=== PATIENT | female | born 1960 | race Caucasian/White ===

== ENCOUNTER 2018-09-04 05:28 | Inpatient (IN) | payer BC, OTHER ==
[2018-09-04] VITALS (7 sets, daily range): BP systolic 94–122; BP diastolic 51–82
[~2018-09-04] VITALS: Ht 172.7 cm; Wt 71.9 kg
[~2018-09-04 05:28] MED LIST: ASP81TEC PO; ASPI-892 PO; ATOR80TA PO; ATOR80TA2 PO; CLPD75T PO; GFN600TCR PO; GLIM2TAB PO; GLMP2T PO; LISI-556 PO; METF-380 PO; METF500T4 PO; METO25TA PO; MTP25TSR PO; MULT-974 PO; NITR0.4T SL; OMEG1CAP51 PO; PANT20TA2 PO; RMP2.5C PO
[2018-09-04] MEDS ORDERED: GLMP2T PO (05:44)
[2018-09-04] MEDS ORDERED: METF-397 PO (05:44)
[2018-09-04 05:46] LABS: BASOPHILS # (AUTO) 0.1 10^3/uL (0.0-0.1); BASOPHILS % (AUTO) 1 % (0-10); EOSINOPHILS # (AUTO) 0.2 10^3/uL (0.0-0.3); EOSINOPHILS % (AUTO) 2 % (0-10); HEMATOCRIT 47 % (35-52); HEMOGLOBIN 16.4 G/DL (11.5-16.0); LYMPHOCYTES # (AUTO) 3.7 X 10^3 (1.0-4.0); LYMPHOCYTES % (AUTO) 33 % (12-44); MEAN CORPUSCULAR HEMOGLOBIN 30 PG (25-34); MEAN CORPUSCULAR HGB CONC 35 G/DL (32-36); MEAN CORPUSCULAR VOLUME 85 FL (80-99); MEAN PLATELET VOLUME 10.7 FL (7.4-10.4); MONOCYTES # (AUTO) 0.9 X 10^3 (0.0-1.0); MONOCYTES % (AUTO) 8 % (0-12); NEUTROPHILS # (AUTO) 6.4 X 10^3 (1.8-7.8); NEUTROPHILS % (AUTO) 57 % (42-75); PLATELET COUNT 264 10^3/uL (130-400); RED CELL DISTRIBUTION WIDTH 13.5 % (10.0-14.5); WHITE BLOOD COUNT 11.3 10^3/uL (4.3-11.0)
--- NOTE | 2018-09-04 05:51 | NUR ---
pt to ct with yoils rn.
[2018-09-04 06:01] LABS: FIBRIN DEGRADATION PRODUCTS 0.38 UG/ML (0.00-0.49); INR 0.9 (0.8-1.4); PROTHROMBIN TIME PATIENT 12.4 SEC (12.2-14.7)
[2018-09-04 06:05] LABS: ALANINE AMINOTRANSFERASE 12 U/L (0-55); ALBUMIN 4.1 GM/DL (3.2-4.5); ALKALINE PHOSPHATASE 99 U/L (40-136); BILIRUBIN,TOTAL 0.4 MG/DL (0.1-1.0); BUN/CREATININE RATIO 14; CALCIUM 9.5 MG/DL (8.5-10.1); CARBON DIOXIDE 20 MMOL/L (21-32); CHLORIDE 103 MMOL/L (98-107); CREATININE SERUM 0.83 MG/DL (0.60-1.30); GFR ESTIMATED > 60; GLUCOSE 364 MG/DL (70-105); POTASSIUM 5.6 MMOL/L (3.6-5.0); SODIUM 134 MMOL/L (135-145); TOTAL PROTEIN 7.1 GM/DL (6.4-8.2)
--- NOTE | 2018-09-04 06:37 | ED Neurological Problem ---
General Chief Complaint: Neuro-Stroke Like Symptoms Stated Complaint: WEAK HEAVINESS IN LFT ARM AND LFT LEG Nursing Triage Note: left sided heaviness since 0000 Nursing Sepsis Screen: No Definite Risk Source: patient Exam Limitations: no limitations (PARMJIT COLBERT MD) History of Present Illness Date Seen by Provider: Sep 04, 2018 Time Seen by Provider: 05:30 Initial Comments This 58-year-old woman presents to the emergency room with complaints of left- sided weakness and difficulty walking. Her last known well time was at approximately midnight when she noticed weakness in both the upper and lower extremity on the left. She noted difficulty grasping the steering wheel and walking. She went to bed and upon waking this morning around 05:00 she required assistance from her to get out of bed. She did ambulate into the emergency room on her own power with some stability provided by her . She has diabetes but does not use insulin. She denies having any prior neurologic deficits. Her primary care providers Dr. BALLESTEROS. (PARMJIT COLBERT MD) Allergies and Home Medications Allergies Coded Allergies: cefdinir (Verified Allergy, Mild, NAUSEA, 09/17/13) Cephalosporins (Verified Adverse Reaction, Unknown, 09/04/18) Home Medications Aspirin 81 Mg Tabec, 81 MG PO DAILY, (Reported) Glimepiride 2 Mg Tab, 2 MG PO BID, (Reported) Lisinopril 5 Mg Tablet, 5 MG PO HS, (Reported) Metformin HCl 500 Mg Tablet, 500 MG PO BID, (Reported) Patient Home Medication List Home Medication List Reviewed: Yes (PARMJIT COLBERT MD) Review of Systems Review of Systems Constitutional: no symptoms reported Eyes: No Symptoms Reported Ears, Nose, Mouth, Throat: no symptoms reported Respiratory: no symptoms reported Cardiovascular: no symptoms reported Gastrointestinal: no symptoms reported Genitourinary: no symptoms reported : No Musculoskeletal: no symptoms reported Skin: no symptoms reported Psychiatric/Neurological: See HPI Endocrine: No Symptoms Reported Hematologic/Lymphatic: No Symptoms Reported (PARMJIT COLBERT MD) Past Suiqwus-Saukco-Rqhejg Hx Patient Social History Alcohol Use: Occasionally Uses Recreational Drug Use: No Smoking Status: Current Everyday Smoker Type Used: Cigarettes 2nd Hand Smoke Exposure: Yes Recent Foreign Travel: No Contact w/Someone Who Travel: No Recent Infectious Disease Expo: No Recent Hopitalizations: No (PARMJIT COLBERT MD) Immunizations Up To Date Tetanus Booster (TDap): Less than 5yrs PED Vaccines UTD: No Date of Pneumonia Vaccine: Jan 02, 2007 Date of Influenza Vaccine: Nov 23, 2013 (PARMJIT COLBERT MD) Seasonal Allergies Seasonal Allergies: No (PARMJIT COLBERT MD) Past Medical History Surgeries: Yes (kidney and bladder surgery as a child) Appendectomy, Section, Coronary Stent, Gallbladder Respiratory: No Cardiac: Yes Coronary Artery Disease Neurological: No : No Reproductive Disorders: No Genitourinary: No Gastrointestinal: Yes Gastroesophageal Reflux Musculoskeletal: No Endocrine: Yes Diabetes, Non-Insulin dep HEENT: No Cancer: No Psychosocial: No Integumentary: No Blood Disorders: No Adverse Reaction/Blood Tranf: No (PARMJIT COLBERT MD) Family Medical History Reviewed Nursing Family Hx (PARMJIT COLBERT MD) Arthritis Cataracts Diabetes mellitus Hypercholesterolemia Hypertension No Family History of: AIDS Abdominal aortic aneurysm Gustavo's disease Alcoholism Alzheimer's disease Aphasia Asthma Cancer of mouth Cardiovascular disease Colon cancer Completed stroke Congenital disease Congenital heart disease Coronary thrombosis Cystic fibrosis Deafness or hearing loss Dementia Drug abuse Dysphasia Fibrocystic disease of breast Gastroenteritis Glaucoma Headache disorder Infertility Kidney disease Myocardial infarction Neoplasm Not obtainable due to adoption Osteoporosis Parkinson's disease Prostate cancer Psychosocial problem Respiratory disorder Seizure disorder Severe allergy Thyroid disease Tuberculosis Visual disorder Physical Exam Vital Signs Vital Signs - First Documented 09/04/18 05:30 Temp 96.0 Pulse 89 Resp 16 B/P (MAP) 140/91 (107) Pulse Ox 94 O2 Delivery Room Air (RHIANNA TOMAS MD) Vital Signs Capillary Refill : Less Than 3 Seconds (PARMJIT COLBERT MD) Height, Weight, BMI Height: 5'8.00" Weight: 170lbs. oz. 77.176791xz; 33.45 BMI Method:Stated General Appearance: WD/WN, no apparent distress HEENT: PERRL/EOMI, normal ENT inspection, pharynx normal Neck: normal inspection; No carotid bruit Respiratory: lungs clear, normal breath sounds, no respiratory distress, no accessory muscle use Cardiovascular: regular rate, rhythm, no edema, no murmur Gastrointestinal: normal bowel sounds, non tender, soft Extremities: normal inspection, no pedal edema Neurologic/Psychiatric: internal medicine nurse II-XII nml as tested, no motor/sensory deficits, alert, normal mood/affect, oriented x 3 Crainal Nerves: normal hearing, normal speech, PERRL Coordination/Gait: normal finger to nose, abnormal gait (disequilibrium) Motor/Sensory: no motor deficit, no sensory deficit Skin: normal color, warm/dry (PARMJIT COLBERT MD) Stroke NIH Stroke Scale Assessment Level of Consciousness: 0=Alert (0), Level of Consciousness-Questions: 0=Answers both month/age (0), LOC Commands: 0=Performs both tasks (0), Visual Lindsay: 0=No visual loss (0), Facial Movement (Facial Paresis): 0=Normal symmetrical mnt (0), Motor Function-Arms Right: 0=No drift (0), Motor Function-Arms Left: 0=No drift (0), Motor Function-Legs Right: 0=No drift (0), Motor Function-Legs Left: 0=No drift (0), Limb Ataxia: 0=Absent (0), Sensory: 0=Normal:no loss (0), Best Language: 0=No aphasia (0), Dysarthria: 0=Normal (0), Extinction & Inattention: 0=No abnormality (0), Total: 0 Progress/Results/Core Measures Results/Orders Lab Results Laboratory Tests Test 09/04/18 05:35 09/04/18 05:50 09/04/18 06:30 09/04/18 07:37 Range/Units White Blood Count 11.3 H 4.3-11.0 10^3/uL Red Blood Count 5.49 4.35-5.85 10^6/uL Hemoglobin 16.4 H 11.5-16.0 G/DL Hematocrit 47 35-52 % Mean Corpuscular Volume 85 80-99 FL Mean Corpuscular Hemoglobin 30 25-34 PG Mean Corpuscular Hemoglobin Concent 35 32-36 G/DL Red Cell Distribution Width 13.5 10.0-14.5 % Platelet Count 264 130-400 10^3/uL Mean Platelet Volume 10.7 H 7.4-10.4 FL Neutrophils (%) (Auto) 57 42-75 % Lymphocytes (%) (Auto) 33 12-44 % Monocytes (%) (Auto) 8 0-12 % Eosinophils (%) (Auto) 2 0-10 % Basophils (%) (Auto) 1 0-10 % Neutrophils # (Auto) 6.4 1.8-7.8 X 10^3 Lymphocytes # (Auto) 3.7 1.0-4.0 X 10^3 Monocytes # (Auto) 0.9 0.0-1.0 X 10^3 Eosinophils # (Auto) 0.2 0.0-0.3 10^3/uL Basophils # (Auto) 0.1 0.0-0.1 10^3/uL Prothrombin Time 12.4 12.2-14.7 SEC INR Comment 0.9 0.8-1.4 Activated Partial Thromboplast Time 30 24-35 SEC D-Dimer 0.38 0.00-0.49 UG/ML Sodium Level 134 L 135-145 MMOL/L Potassium Level 5.6 H 3.6-5.0 MMOL/L Chloride Level 103 98-107 MMOL/L Carbon Dioxide Level 20 L 21-32 MMOL/L Anion Gap 11 5-14 MMOL/L Blood Urea Nitrogen 12 7-18 MG/DL Creatinine 0.83 0.60-1.30 MG/DL Estimat Glomerular Filtration Rate > 60 BUN/Creatinine Ratio 14 Glucose Level 364 H 70-105 MG/DL Calcium Level 9.5 8.5-10.1 MG/DL Corrected Calcium 9.4 8.5-10.1 MG/DL Total Bilirubin 0.4 0.1-1.0 MG/DL Aspartate Amino Transf (AST/SGOT) 20 5-34 U/L Alanine Aminotransferase (ALT/SGPT) 12 0-55 U/L Alkaline Phosphatase 99 40-136 U/L Troponin I < 0.028 <0.028 NG/ML Total Protein 7.1 6.4-8.2 GM/DL Albumin 4.1 3.2-4.5 GM/DL Glucometer 119 H 319 H 70-110 MG/DL Urine Color YELLOW Urine Clarity CLEAR Urine pH 6.5 5-9 Urine Specific [place] 1.010 L 1.016-1.022 Urine Protein NEGATIVE NEGATIVE Urine Glucose (UA) 4+ H NEGATIVE Urine Ketones NEGATIVE NEGATIVE Urine Nitrite NEGATIVE NEGATIVE Urine Bilirubin NEGATIVE NEGATIVE Urine Urobilinogen NORMAL NORMAL MG/DL Urine Leukocyte Esterase NEGATIVE NEGATIVE Urine RBC (Auto) NEGATIVE NEGATIVE Urine RBC 0-2 /HPF Urine WBC NONE /HPF Urine Squamous Epithelial Cells 2-5 /HPF Urine Crystals NONE /LPF Urine Bacteria TRACE /HPF Urine Casts NONE /LPF Urine Mucus NEGATIVE /LPF Urine Culture Indicated NO (RHIANNA TOMAS MD) My Orders Orders - RHIANNA TOMAS MD Insulin (Regular) Human (Humulin R (Per (09/04/18 07:47) Aspirin Chewable Tablet (Baby Aspirin Ch (09/04/18 07:48) (RHIANNA TOMAS MD) Medications Given in ED Current Medications Medications Dose Ordered Sig/Pearl Route Start Time Stop Time Status Last Admin Dose Admin Iohexol 100 ml ONCE ONCE IV 09/04/18 06:45 09/04/18 06:46 DC 09/04/18 06:44 75 ML Sodium Chloride 100 ml ONCE ONCE IV 09/04/18 06:45 09/04/18 06:46 DC 09/04/18 06:44 80 ML (RHIANNA TOMAS MD) Vital Signs/I&O 09/04/18 05:30 Temp 96.0 Pulse 89 Resp 16 B/P (MAP) 140/91 (107) Pulse Ox 94 O2 Delivery Room Air (RHIANNA TOMAS MD) Blood Pressure Mean: 107 FSBG Bedside Testing Finger Stick Blood Glucose: 119 (PARMJIT COLBERT MD) Progress Progress Note : Time: 06:39 Progress Note The initial NIH stroke score was zero. Noncontrast CT was negative for acute findings. 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 Follow-up CT angiogram revealed no large vessel occlusions but did reveal an additional old infarct. Patient was not a TPA candidate as her NIH stroke score was zero and she was more than 4.5 hours past last known well time. Care of this patient was turned over to Dr. Tomas. (PARMJIT COLBERT MD) Progress Note : Progress Note 0700: I have assumed care of the patient from Dr. Pierce pending CT angiogram studies. I have reassessed the patient. Currently NIH stroke scale is 0. She has been able to walk to the bathroom and back without assistance. States overall she is feeling better. I did discuss the case with Dr. Santana at [facility], on-call for stroke neurology. We reviewed the case to this point. No indication for CTP. Recommends assay a 1 mg daily which will be initiated. 0750: UA complete. Does have 4+ glucose. Patient is on metformin and that does not seem to be managing her well at least currently. Given the fact that this is a new onset issue that seems to be TIA as well as hyperglycemia, patient will be admitted for observation. Insulin 10 units subcutaneous ordered. I did discuss the case with Dr. Duckworth and she accepts patient for admission, observation status. Aspirin. 24 mg by mouth given. We will get MRI tomorrow morning. Patient and family agree with plan. (RHIANNA TOMAS MD) Initial ECG Impression Date: Sep 04, 2018 Initial ECG Impression Time: 05:38 Initial ECG Rate: 82 Initial ECG Rhythm: Normal Sinus Initial ECG Intervals: Normal Initial ECG Impression: Normal Comment Normal sinus rhythm with no ST elevation or depression. No abnormal intervals or axis deviation. (PARMJIT COLBERT MD) Diagnostic Imaging Diagonstic Imaging: Xray Plain Films/CT/US/NM/MRI: chest Comments Chest x-ray viewed by me. Report not yet available. No acute abnormalities appreciated. Diagonstic Imaging: CT Plain Films/CT/US/NM/MRI: head Comments Noncontrast CT of the head viewed by me and stat rad report reviewed. There is a slight left frontal intra-axial 2 cm mass which may represent calcified meningioma. There is an old right occipital infarct. No intracranial hemorrhage. Diagonstic Imaging: CT Plain Films/CT/US/NM/MRI: other (angiogram head and neck) Comments CT angiogram of the head and neck discussed with the radiologist and report reviewed. There were no large vessel occlusions or intracranial stenosis. There were a left cerebellar and right occipital prior infarct noted. There is an enhancing calcified left frontal extra-axial mass consistent with meningioma. There were calcified plaques within the left ICA. Minimal intimal thickening within the right ICA without stenosis. (PARMJIT COLBERT MD) Departure Communication (Admissions) Time/Spoke to Admitting Phy: 07:50 (RHIANNA TOMAS MD) Impression Primary Impression: Transient ischemic attack (TIA) Additional Impression: Hyperglycemia due to type 2 diabetes mellitus Qualified Codes: E11.65 - Type 2 diabetes mellitus with hyperglycemia Disposition: ADMITTED INPATIENT Condition: Stable Admissions Decision to Admit Reason: Admit from ER (General) Decision to Admit/Date: Sep 04, 2018 Time/Decision to Admit Time: 07:50 (RHIANNA TOMAS MD) Departure-Patient Inst. Referrals: NO,LOCAL PHYSICIAN (PCP) Primary Care Physician BENEDICTO BALLESTEROS DO (Family) Primary Care Physician PARMJIT COLBERT MD Sep 04, 2018 06:36 RHIANNA TOMAS MD Sep 04, 2018 08:01
[2018-09-04 06:39] LABS: BILIRUBIN,URINE NEGATIVE (NEGATIVE); CLARITY,URINE CLEAR; COLOR,URINE YELLOW; GLUCOSE, URINE (UA) 4+ (NEGATIVE); KETONES,URINE NEGATIVE (NEGATIVE); LEUKOCYTE ESTERASE ,URINE NEGATIVE (NEGATIVE); NITRITE,URINE NEGATIVE (NEGATIVE); PH,URINE 6.5 (5-9); PROTEIN,URINE NEGATIVE (NEGATIVE); UROBILINOGEN,URINE NORMAL (NORMAL)
[2018-09-04] MEDS ORDERED: NS 100 ML (IVPB) BAG IV ONE (06:45)
[2018-09-04] MEDS ORDERED: IOHEXOL 350 MG/ML 100 ML (OMNIPAQUE 350) VIAL IV ONE (06:45)
[2018-09-04] MEDS ORDERED: HOLD METFORMIN - RECEIVED CONTRAST 20 ML VIAL IV SCH (06:45)
--- NOTE | 2018-09-04 06:50 | Diagnostic Imaging Report ---
Portable erect AP chest at 632 hours. INDICATION: Respiratory distress, CVA. There are no prior studies available for comparison. FINDINGS: The heart size is within normal limits. The lungs are clear. There is no evidence for failure, pneumonia or for pleural effusion. The mediastinum is not widened. The osseous structures are intact. IMPRESSION: There is no evidence of active disease. Dictated by: Dictated on workstation # [id number]
--- NOTE | 2018-09-04 07:01 | Diagnostic Imaging Report ---
PROCEDURE: CT head wo r/o stroke. TECHNIQUE: Multiple contiguous axial images were obtained through the brain without the use of intravenous contrast. Auto Exposure Controls were utilized during the CT exam to meet ALARA standards for radiation dose reduction. INDICATION: CVA, left-sided weakness There are no prior studies available for comparison. Along the periphery of the left temporal parietal lobe just superior to the level of the lateral ventricles there is a partially calcified 1.3 x 2.0 CM extra-axial mass. I suspect that this is a meningioma. There is no other mass identified. There is no sign of hemorrhage or shift of midline to suggest an acute abnormality. There is a small area of diminished density in the basal ganglia on the right. This may be related to encephalomalacia from a prior lacunar infarct. It would be less likely that this is related to an acute or subacute infarct. There are other areas of encephalomalacia in both cerebellar hemispheres the right parieto-occipital lobe and right parietal occipital lobe. There is also mild cortical atrophy. The degree of atrophy is consistent with the patient's age. The ventricles are not abnormally dilated. The bone windows show no sign of a fracture or of a destructive lesion. The orbits are symmetrical and within normal limits. The sinuses where visualized are clear. IMPRESSION: 1. There is no evidence for acute intracranial abnormality. The small area of diminished density in the basal ganglia on the right is of uncertain etiology, but more likely to be chronic in nature than due to an acute or subacute abnormality.. If further study is desired, then a CTA of the head would be recommended. 2. The partially calcified extra-axial mass along the periphery of the left frontoparietal lobe is most likely a meningioma. MRI would be recommended for further evaluation. 3. These results were conveyed to the ER by our [employer] service at 6:03 am on 09/04/2018. Dictated by: Dictated on workstation # [id number]
[2018-09-04 07:03] LABS: BACTERIA,URINE TRACE /HPF; RBC,URINE 0-2 /HPF
--- NOTE | 2018-09-04 07:11 | Diagnostic Imaging Report ---
PROCEDURE: CT angiography of the head and CT angiography of the neck with and without contrast. TECHNIQUE: Contiguous noncontrast images were obtained from the skull base through the vertex. After intravenous contrast administration, helical CT angiography of the neck was performed. Source data was reformatted into multiple MIP projections. Delayed post contrast acquisition was also obtained. Auto Exposure Controls were utilized during the CT exam to meet ALARA standards for radiation dose reduction. INDICATION: Left-sided weakness There are no prior CT head and neck examinations available for comparison. The CT head exam performed prior to the study failed to show any sign of an acute intracranial abnormality. There did appear to be a small lacunar infarct in the right basal ganglia, however, on this exam. There is no defect within the intracranial arterial circulation to suggest a thrombus. There is no sign of aneurysm of the [place] either. The suspected calcified meningioma along the periphery of the left frontoparietal lobes seen on the prior study is again evident. The images through the neck show that there is atherosclerotic plaque involving the left carotid system. There is also mild soft plaque formation involving the internal carotid artery on the right. There is no hemodynamically significant stenosis of either carotid system identified. The vertebral arteries are opacified and there is no sign of injury to either vertebral artery. The left vertebral artery is slightly dominant. There is no mass or adenopathy involving the neck. The thyroid gland is generally unremarkable. There are faint groundglass densities in both lung apices. These are nonspecific but may be related to chronic pulmonary disease. The bone windows show no evidence for a fracture or for a destructive lesion. There is fairly severe degenerative disc and bony disease at C6-7. The disc space is narrowed and there is sclerosis of the opposing endplates of C6 and C7. There is no evidence for a high-grade central stenosis at this level. However, there does appear to be a focal disc protrusion to the right at C4-5. This does produce spinal stenosis and may involve the origin of the exiting right nerve root. If further evaluation is desired, then MRI would be recommended. IMPRESSION: 1. There is no defect within the intracranial arterial circulation to suggest a thrombus. There is no sign of an aneurysm either. If clinical concern regarding an acute intracranial abnormality persists, then MRI would be recommended for further evaluation. 2. There is atherosclerotic disease involving the carotid systems but there is no evidence for hemodynamically significant stenosis. There is no sign of an injury to either vertebral artery. 3. There is a focal disc protrusion to the right at C4-5. This does produce spinal stenosis and may involve the exiting right nerve root. If further evaluation is desired, then MRI would be recommended. Dictated by: Dictated on workstation # [id number]
--- NOTE | 2018-09-04 07:29 | NUR ---
Pt states that heavyness in left arm appears to be better. Pt reports improvement in ability to ambulate when walking to restroom. Pt reports no current needs at this time.
[2018-09-04] MEDS ORDERED: inSUlin (REGULAR) HUMAN 1 UNIT/0.01 ML (CHARGE PER UNIT) SC STA (07:47)
[2018-09-04] MEDS ORDERED: ASPIRIN 81 MG CHEW (CHILDREN'S ASA) PO STA (07:48)
--- NOTE | 2018-09-04 08:35 | NUR ---
attempt to call report at this time, no answer. order desk clerk report will have 4th rn call ED when she is available.
--- NOTE | 2018-09-04 09:20 | NUR ---
REPORT RECEIVED FROM ALAN IN ED,
--- NOTE | 2018-09-04 09:25 | NUR ---
ANDRIY TREVINO admitted to room 422-1, with an admitting diagnosis of TIA AND HYPOGLYCEMIA, on 09/04/18 from ED via W/C, accompanied by STAFF AND FAMILY. ANDRIY TREVINO introduced to surroundings, call light, bed controls, phone, TV, temperature control, lights, meal times, smoking policy, visitor policy, side rail policy, bathrooms and showers. Patient Rights given to patient in the handbook. ANDRIY TREVINO verbalizes understanding that [facility] is not responsible for the loss or damage to any personal effects or valuables that are kept in the patients posession during their hospitalization. The following Patient Care Plans were discussed with the PATIENT: Discharge Planning,STROKE AND KNOWLEDGE. ANDRIY TREVINO verbalizes understanding of Interdisciplinary Patient Education.
[2018-09-04] MEDS ORDERED: CATHETER FLUSH 10 ML SYR IV PRN (09:30)
--- NOTE | 2018-09-04 09:30 | NUR ---
ALERT, ORIENTED TO ROOM, CALL LIGHT WITHIN REACH, SPEECH CLEAR, LEFT ARM AND LEFT LEG WEAKER THEN RIGHT, STATES LEFT SIDE OF FACE IS SLIGHT NUMB, C/O HEAVINESS FEELING ON LEFT SIDE. DENIES PAIN OR SOB.
[2018-09-04] MEDS: NS IV 1000 ML 1,000 ML IV SCH (09:51)
[2018-09-04] MEDS ORDERED: NICOTINE 21 MG (NICODERM) PATCH TD SCH (10:45)
--- NOTE | 2018-09-04 11:09 | History & Physical-Hospitalist ---
History of Present Illness HPI/Chief Complaint Pt is a 58yoCF with a PMH of HTN, CAD, and NIDDMII who presented to the ER due to left sided weakness. [place] and started to feel her left arm tingle. When she was driving home she couldn't keep her left arm on the wheel due to the heaviness. Her left leg then became involved and she was unable to walk up her stairs to get in her so her came and helped her. She then fell asleep on the cough and when she woke up she couldn't stand due to the weakness. This prompted her to seek evaluation in the ER. Stroke team was activated and she went emergently to CT where a noncontrast Ct head was negative for acute ICH. She then had a CTA head and neck which was negative as well. By that point her symptoms had nearly resolved except for some heaviness in her arm but her strength had improved and by my exam she had ambulated independently to the bathroom. Source: patient Exam Limitations: no limitations Date Seen 09/04/18 Time Seen by a Provider: 11:03 Attending Physician Angelika Duckworth MD PCP Luis Denis DO Referring Physician Date of Admission Sep 04, 2018 at 07:50 Home Medications & Allergies Home Medications Reviewed patient Home Medication Reconciliation performed by pharmacy medication reconciliations marine services technician and/or nursing. Patients Allergies have been reviewed. Allergies Allergies Coded Allergies cefdinir (Verified Adverse Reaction, Mild, NAUSEA, yeast infection, 09/04/18) Cephalosporins (Verified Adverse Reaction, Unknown, yeast infections, 09/04/18) Past Mmphcun-Icvjln-Gwawbs Hx Past Med/Social Hx: Reviewed Nursing Past Med/Soc Hx Patient Social History Marrital Status: Employed/Student: employed Alcohol Use: Occasionally Uses Recreational Drug Use: No Smoking Status: Current Everyday Smoker Cigaretts per day: 10 Type Used: Cigarettes 2nd Hand Smoke Exposure: Yes Physical Abuse Screen: No Sexual Abuse: No Recent Foreign Travel: No Contact w/other who traveled: No Recent Hopitalizations: No Recent Infectious Disease Expo: No Immunizations Up To Date Tetanus Booster (TDap): Less than 5yrs Pediatric: No Date of Pneumonia Vaccine: Jan 02, 2007 Date of Influenza Vaccine: Nov 23, 2013 Seasonal Allergies Seasonal Allergies: Yes Past Medical History Surgeries: Appendectomy, Section, Coronary Stent, Gallbladder Currently Using CPAP: No Currently Using BIPAP: No Cardiac: Coronary Artery Disease, Hypertension, Irregular Heartbeat : No Reproductive: No Sexually Transmitted Disease: No HIV/AIDS: No Female Reproductive Disorders: Denies Genitourinary: UTI-Chronic Gastrointestinal: Gastroesophageal Reflux, Gall Bladder Disease Endocrine: Diabetes, Non-Insulin dep Are Your Blood Sugars Over 250: No Loss of Vision: Denies Hearing Impairment: Denies History of Blood Disorders: No Adverse Reaction to Blood Solitario: No Family History Reviewed Nursing Family Hx Arthritis Cataracts Diabetes mellitus Hypercholesterolemia Hypertension No Family History of: AIDS Abdominal aortic aneurysm [place]'s disease Alcoholism Alzheimer's disease Aphasia Asthma Cancer of mouth Cardiovascular disease Colon cancer Completed stroke Congenital disease Congenital heart disease Coronary thrombosis Cystic fibrosis Deafness or hearing loss Dementia Drug abuse Dysphasia Fibrocystic disease of breast Gastroenteritis Glaucoma Headache disorder Infertility Kidney disease Myocardial infarction Neoplasm Not obtainable due to adoption Osteoporosis Parkinson's disease Prostate cancer Psychosocial problem Respiratory disorder Seizure disorder Severe allergy Thyroid disease Tuberculosis Visual disorder Review of Systems Constitutional: No chills, No fever EENTM: no symptoms reported Respiratory: No cough, No short of breath Cardiovascular: No chest pain, No edema; Hx of Intervention; No palpitations Gastrointestinal: No abdominal pain, No nausea, No vomiting Genitourinary: no symptoms reported Musculoskeletal: see HPI, muscle weakness Skin: no symptoms reported Psychiatric/Neurological: See HPI, Numbness, Weakness Physical Exam Physical Exam Vital Signs Vital Signs - First Documented 09/04/18 05:30 Temp 96.0 Pulse 89 Resp 16 B/P (MAP) 140/91 (107) Pulse Ox 94 O2 Delivery Room Air Capillary Refill : Less Than 3 Seconds Height, Weight, BMI Height: 5'8.00" Weight: 156lbs. 4.0oz. [id number]; 23.8 BMI Method:Stated General Appearance: No Apparent Distress, WD/WN HEENT: PERRL/EOMI, Moist Mucous Membranes; No Scleral Icterus (L), No Scleral Icterus (R) Neck: Normal Inspection, Supple; No Thyromegaly Respiratory: Lungs Clear, No Accessory Muscle Use, No Respiratory Distress Cardiovascular: Regular Rate, Rhythm, No Murmur, Normal Peripheral Pulses Gastrointestinal: Normal Bowel Sounds, Non Tender, Soft Extremity: Normal Capillary Refill, No Calf Tenderness, No Pedal Edema Neurologic/Psychiatric: Alert, Oriented x3, No Motor/Sensory Deficits, Normal Mood/Affect; No Aphasia, No Facial Droop Skin: Normal Color, Warm/Dry Results Results/Procedures Labs Laboratory Tests 09/04/18 05:35 Patient resulted labs reviewed. Imaging: Reviewed Imaging Report Assessment/Plan Admission Diagnosis TIA Admission Status: Observation Assessment and Plan Left Sided Weakness CT Head negative Likely TIA as now resolved PT/OT/ST tomorrow Will get MRI Lipids ordered for AM ASA given in ER Monitor on telemetry Encouraged smoking cessation NIDDMII a1c orderd SsI hold metformin as just received contrast HTN Monitor and treat if SBP >180 Diagnosis/Problems Diagnosis/Problems (1) Transient ischemic attack (TIA) Status: Acute (2) HTN (hypertension) Qualifiers: Hypertension type: essential hypertension Qualified Codes: I10 - Essential (primary) hypertension (3) CAD (coronary artery disease) Qualifiers: Coronary Disease-Associated Artery/Lesion type: [place] artery [place] vs. 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
[2018-09-04] MEDS ORDERED: MELATONIN 3 MG TABLET PO PRN (11:15)
[2018-09-04] MEDS ORDERED: MILK OF MAGNESIA 400 MG/5 ML 30 ML UDC PO PRN (11:15)
[2018-09-04] MEDS ORDERED: BENZONATATE 100 MG (TESSALON) CAPSULE PO PRN (11:15)
[2018-09-04] MEDS ORDERED: ONDANSETRON 4 MG/2 ML (SDV) Z0FRAN IV PRN (11:15)
[2018-09-04] MEDS ORDERED: NICOTINE 14 MG (NICODERM) PATCH TD NR (11:15)
[2018-09-04] MEDS ORDERED: ANTACID SUSP 30 ML UDC (MYLANTA) PO PRN (11:15)
[2018-09-04] MEDS ORDERED: NITROGLYCERIN 2% OINT 1 GM UNIT DOSE PACKET TOP PRN (11:15)
--- NOTE | 2018-09-04 11:30 | NUR ---
WALKED TO BATHROOM, WHEN RETURNING TO BED, PATIENT C/O FEELING HEAVINESS IN LEFT SIDE, EMOTIONAL, CRYING, DR CHRISTIANSON IN ROOM, BP 131/70. PULSE 88, O2 SAT 99 PERCENT,
--- NOTE | 2018-09-04 11:42 | NUR ---
DOWN TO CT, ACCOMPANIED BY TRAVELING SALES REPRESENTATIVE
--- NOTE | 2018-09-04 12:13 | Diagnostic Imaging Report ---
PROCEDURE: CT head wo r/o stroke. TECHNIQUE: Multiple contiguous axial images were obtained through the brain without the use of intravenous contrast. Auto Exposure Controls were utilized during the CT exam to meet ALARA standards for radiation dose reduction. INDICATION: Onset of left-sided weakness approximately 15 minutes ago. Followup assessment. CORRELATION STUDY: CT head 09/04/2018 FINDINGS: Small linear area of asymmetric low attenuation of the right occipital lobe appears unchanged and may reflect a previous area of infarct. An additional linear to wedge-shaped area of low-attenuation at the posterior lateral left occipital lobe also appears stable. A definitive new area of decreased attenuation suggesting edema is not demonstrated. No intracranial hemorrhage. No midline shift. Heterogeneous but densely calcified, 20 x 17 mm mass at the left frontal region unchanged may reflect a calcified meningioma. Some mass effect on the adjacent brain parenchyma without definitive edema. No findings to suggest hyperdense MCA. IMPRESSION: 1. Generally stable appearing noncontrast CT imaging of the head. No definitive interval change or findings to suggest acute abnormality. Given continued symptoms, consideration for followup MRI would be recommended. Dictated by: Dictated on workstation # [id number]
[2018-09-04] MEDS: inSUlin ASPART (NovoLOG) 1 UNIT/0.01 ML (CHARGE PER UNIT) SC SCH ×3 (12:45→21:18)
--- NOTE | 2018-09-04 13:08 | NUR ---
NICOTINE PATCH CHANGED TO 14MG ORDERED
--- NOTE | 2018-09-04 13:19 | NUR ---
DR GARRISON NOTIFIED OF CONSULT
--- NOTE | 2018-09-04 15:14 | NUR ---
INCREASED WEAKNESS IN LEFT ARM AND HAND, UNABLE TO RAISE HAND TO FACE, HAND CHICKEN STUFFER WEAKER, SPEECH CLEAR, DR CHRISTIANSON NOTIFIED
--- NOTE | 2018-09-04 17:30 | NUR ---
PC TECHNICIAN NOTIFIED NURSE THAT DR CHRISTIANSON WANTED PATIENT TRANSFERRED TO ICU FOR MONITORING
--- NOTE | 2018-09-04 17:55 | NUR ---
PT TRANSFERRED TO ROOM ICU 10 VIA BED ACCOMPANIED BY DMITRI ALMONTE. PT TRANSFERRED TO ICU BED AND CONNECTED TO BEDSIDE MONITOR. PT INTRODUCED TO SURROUNDINGS AND INFORMED OF PLAN OF CARE. BEDSIDE REPORT RECEIVED FROM DMITRI ALMONTE FOR CONTINUING CARE.
--- NOTE | 2018-09-04 20:56 | NUR ---
ASSISTED TO BSC WITH ASSIST TIMES TWO , LEFT ARM AND LEFT LEG WEAK AND PT UNABLE TO STAND WITHOUT ASSIST
[2018-09-05] VITALS (15 sets, daily range): BP systolic 87–125; BP diastolic 49–85
[2018-09-05 03:15] LABS: BASOPHILS # (AUTO) 0.1 10^3/uL (0.0-0.1); BASOPHILS % (AUTO) 1 % (0-10); EOSINOPHILS # (AUTO) 0.2 10^3/uL (0.0-0.3); EOSINOPHILS % (AUTO) 2 % (0-10); HEMATOCRIT 44 % (35-52); HEMOGLOBIN 14.8 G/DL (11.5-16.0); LYMPHOCYTES # (AUTO) 2.9 X 10^3 (1.0-4.0); LYMPHOCYTES % (AUTO) 40 % (12-44); MEAN CORPUSCULAR HEMOGLOBIN 29 PG (25-34); MEAN CORPUSCULAR HGB CONC 34 G/DL (32-36); MEAN CORPUSCULAR VOLUME 87 FL (80-99); MEAN PLATELET VOLUME 10.8 FL (7.4-10.4); MONOCYTES # (AUTO) 0.6 X 10^3 (0.0-1.0); MONOCYTES % (AUTO) 8 % (0-12); NEUTROPHILS # (AUTO) 3.6 X 10^3 (1.8-7.8); NEUTROPHILS % (AUTO) 50 % (42-75); PLATELET COUNT 238 10^3/uL (130-400); RED CELL DISTRIBUTION WIDTH 13.5 % (10.0-14.5); WHITE BLOOD COUNT 7.3 10^3/uL (4.3-11.0)
[2018-09-05 03:37] LABS: BUN/CREATININE RATIO 17; CALCIUM 8.9 MG/DL (8.5-10.1); CARBON DIOXIDE 22 MMOL/L (21-32); CHLORIDE 106 MMOL/L (98-107); CHOLESTEROL 151 MG/DL (< 200); CREATININE SERUM 0.76 MG/DL (0.60-1.30); GFR ESTIMATED > 60; GLUCOSE 281 MG/DL (70-105); HDL CHOLESTEROL 45 MG/DL (40-60); MAGNESIUM 1.7 MG/DL (1.8-2.4); PHOSPHORUS 3.9 MG/DL (2.3-4.7); POTASSIUM 3.8 MMOL/L (3.6-5.0); SODIUM 139 MMOL/L (135-145); TRIGLYCERIDES 104 MG/DL (<150); VLDL CHOLESTEROL 21 MG/DL (5-40)
[2018-09-05] MEDS: MAGNESIUM 1 GM/100 ML IVPB 100 ML IV SCH ×2 (05:03→05:48)
[2018-09-05] MEDS: NS IV 1000 ML 1,000 ML IV SCH (05:04)
[2018-09-05] MEDS ORDERED: KCL 20 MEQ TAB (K-DUR) PO SCH (06:00)
[2018-09-05] MEDS: inSUlin ASPART (NovoLOG) 1 UNIT/0.01 ML (CHARGE PER UNIT) SC SCH ×4 (06:00→22:03)
[2018-09-05] MEDS ORDERED: MAGNESIUM 1 GM/100 ML IVPB 100 ML IV SCH (06:00)
[2018-09-05] MEDS ORDERED: POTASSIUM CL 10MEQ/50ML IVPB 50 ML IV SCH (06:00)
--- NOTE | 2018-09-05 08:19 | Diagnostic Imaging Report ---
Indication: TIA and hyperglycemia. Comparison made with prior examination of 09/04/2018. Findings: The heart size is normal. Lungs are clear. No pleural effusion or pneumothorax. Mediastinum unremarkable. Impression: No acute cardiopulmonary abnormality. Dictated by: Dictated on workstation # [id number]
[2018-09-05] MEDS: NICOTINE PATCH REMOVAL TP SCH (08:21)
[2018-09-05] MEDS: NICOTINE 14 MG (NICODERM) PATCH TD SCH (08:21)
[2018-09-05] MEDS: ACETAMINOPHEN 325 MG TABLET PO PRN ×2 (08:22→22:04)
[2018-09-05] MEDS ORDERED: NICOTINE PATCH REMOVAL TP SCH (08:59)
[2018-09-05] MEDS ORDERED: ASPIRIN 81 MG CHEW (CHILDREN'S ASA) PO SCH (09:00)
--- NOTE | 2018-09-05 10:51 | Physical Therapy Evaluation ---
PT Evaluation-General Medical Diagnosis Admission Date Sep 04, 2018 at 15:44 Medical Diagnosis: TIA and hypoglycemia Onset Date: Sep 03, 2018 Therapy Diagnosis Therapy Diagnosis: impaired mobility, strength, endurance, balance Height/Weight Height (Feet): 5 Height (Inches): 8.00 Weight (Pounds): 158 Weight (Ounces): 8.0 Precautions Precautions/Isolations: Fall Prevention, Standard Precautions Weight Bear Status Right Lower Extremity: Right Weight Bearing/Tolerated Left Lower Extremity: Left Weight Bearing/Tolerated Referral Physician: Fabienne Duckworth MD Reason for Referral: Evaluation/Treatment Medical History Additional Medical History Past Medical History Surgeries: Yes (kidney and bladder surgery as a child) Appendectomy, Section, Coronary Stent, Gallbladder Respiratory: No Cardiac: Yes Coronary Artery Disease Neurological: No : No Reproductive Disorders: No Genitourinary: No Gastrointestinal: Yes Gastroesophageal Reflux Musculoskeletal: No Endocrine: Yes Diabetes, Non-Insulin dep HEENT: No Cancer: No Psychosocial: No Integumentary: No Blood Disorders: No Reviewed History: Yes Social History Home: Single Level Current Living Status: Spouse Entry Into Home: Stairs Without Railing PT Steps Into Home: 4 Prior/Core FIM Prior Level of Function Therapy Code Descriptions/Definitions Functional Tinnie Measure: 0=Not Assessed/NA 4=Minimal Assistance 1=Total Assistance 5=Supervision or Setup 2=Maximal Assistance 6=Modified Tinnie 3=Moderate Assistance 7=Complete Tinnie Therapy Quality Codes: 6 Independent with activity with or without an assistive device 5 Patient requires set up or clean up by helper. Patient completes activity by themselves 4 Supervision or touching assist (CGA). [place] provide cues , steadying assist 3 The helper provides less than half the effort to complete the activity 2 The helper provides more than half the effort to complete the activity 1 Dependent. The helper does all the effort to complete an activity 7 Patient refused to complete or attempt activity 9 The patient did not perform the activity before the current illness or injury 88 Not attempted due to Medical conditions or safety concerns Functional Abilities and Goals: Independent: Patient completed the activities by him/herself, with or without an assistive device, with no assistance from a helper. Needed Some Help: Patient needed partial assistance from another person to complete activities. Dependent: A helper completed the activities for the patient. Unknown: Not Applicable: Bed Mobility: 7 Transfers (B,C,W/C) (FIM): 7 Gait: 7 Stairs: 7 Indoor Mobility (Ambulation): Independent Stairs: Independent PT Evaluation-Current Subjective Patient sitting EOB pre tx, agrees to PT, has no complaints of pain. Pt/Family Goals "to improve strength in left side" Objective Patient Orientation: Person, Place, Situation Attachments: IV ROM/Strength ROM Lower Extremities WNL Strength Lower Extremities RLE grossly 5/5, LLE (hip flexion 3+/5, knee flexion 3+/5, knee extension 4-/5, dorsiflexion 3+/5) Neuromuscular (Tone, Coordination, Reflexes) intact peripheral vision and good tracking, slight facial droop Sensory Vision: Functional Hearing: Functional Sensation Right Lower Extremit: Intact Sensation Left Lower Extremity: Intact Transfers Therapy Code Descriptions/Definitions Functional Tinnie Measure: 0=Not Assessed/NA 4=Minimal Assistance 1=Total Assistance 5=Supervision or Setup 2=Maximal Assistance 6=Modified Tinnie 3=Moderate Assistance 7=Complete Tinnie Sit to/from Stand: 4 bed t/f WC(FIM only if WC use): 4 Patient's left hand cannot compensation intern a walker so stood with therapist in front and once standing patient gripped therapist arm with right hand and slowly ambulated a few feet to recliner. Gait Mode of Locomotion: Walk Anticipated Mode of Locomotion: Walk Gait (FIM): 1 Distance: 5' Gait Level of Assist: 4 Gait Persons Needed: 1 Gait Assistive Device: Handheld Assist Comments/Gait Description Slow ambulation, some slight buckling of left knee but not totally, she is able to bear weight on left leg, uncoordinated stepping. Balance Sitting Static: Normal Sitting Dynamic: Fair Standing Static: Fair Standing Dynamic: Poor Treatment BLE seated exercises x15 (AP, LAQ) Assessment/Needs Patient has impaired mobility, strength, endurance, balance. She has left hemiparesis and impaired standing balance. Patient in recliner post tx with nurse call, phone, jerryy, instructed to call nursing if she needs to get back to the bed. Rehab Potential: Fair PT Short Term Goals Short Term Goals Time Frame: Sep 12, 2018 Transfers (B,C,W/C) (FIM): 4 (CGA) Gait (FIM): 1 Gait Distance Comment: 20' Gait Level of Assist: 4 Gait Assistive Device: Cane Large Base Quad, Cane Single Point, Walker Jaydon PT Plan Problem List Problem List: Activity Tolerance, Functional Strength, Safety, Balance, Gait, Transfer, Bed Mobility, ROM Treatment/Plan Treatment Plan: Continue Plan of Care Treatment Plan: Bed Mobility, Education, Functional Activity Marco Antonio, Functional Strength, Gait, Safety, Therapeutic Exercise, Transfers Treatment Duration: Sep 12, 2018 Frequency: 6 times per week Estimated Hrs Per Day: .25 hour per day Patient and/or Family Agrees t: Yes Safety Risks/Education Patient Education: Gait Training, Transfer Techniques, Correct Positioning, Safety Issues Teaching Recipient: Patient Teaching Methods: Demonstration, Discussion Response to Teaching: Reinforcement Needed Discharge Recommendations Plan Patient will perform bed mobility and transfer training, balance and endurance training, functional strengthening, stair training, gait training, and education, to improve functional mobility and independence at home. Therapy D/C Recommendations: Home w/ Family Support Time/GCodes Time In: 1021 Time Out: 1040 Total Billed Treatment Time: 19 Total Billed Treatment 1 visit DEVORAH Gay' DAGMAR GENTILE PT Sep 05, 2018 10:51
--- NOTE | 2018-09-05 11:15 | NUR ---
Pastoral care visit.
[2018-09-05] MEDS ORDERED: DIPH25CA79 PO (11:20)
[2018-09-05] MEDS ORDERED: IBUP-30 PO (11:20)
[2018-09-05] MEDS ORDERED: METF-399 PO (11:20)
[2018-09-05] MEDS ORDERED: MULT1TAB69 PO (11:20)
[2018-09-05] MEDS ORDERED: ASPI-983 PO (11:20)
--- NOTE | 2018-09-05 11:20 | NUR ---
fsbs 408, dr vogel notified. new orders received to give max dose ssi. additional orders received to change pt to csd status.
--- NOTE | 2018-09-05 11:21 | NUR ---
SPOKE WITH THE PATIENT ABOUT HER MEDICATIONS. SHE LISTED WHAT SHE IS TAKING AND SEEMED CONFIDENT IN THE DOSES HOWEVER WHEN I SAID I WOULD CALL [facility] TO DOUBLE CHECK SHE ADMITTED SHE DOES NOT TAKE THEM DAILY PRESCRIBED. [facility] HAS NOT FILLED HER MEDS IN QUITE SOME TIME ASIDE FROM ANTIBIOTICS RECENTLY FROM THE ED. [facility] FILLED: 10-28-16 GLIMEPIRIDE 4MG BID #60 10-28-16 METFORMIN 1000MG BID #60 01-21-11 LISINOPRIL - CANCELED; NOT FILLED I CALLED [facility] (WHO PRESCRIBED THE ABOVE MEDS) THEY HAVE NOT SEEN HER OR HAVE RECORD OF REFILLS SINCE THOSE ABOVE DATES. THEY MENTIONED SHE WAS SEEN BY THE EXCHANGE CONSULTANT IN [place] THIS YEAR FOR A SORE THROAT BUT ROUTINE MEDS WERE NOT ADDRESSED. I DID NOT INCLUDE THESE MEDICATIONS ON THE MED REC THEY ARE SIGNIFICANTLY PAST DUE. SHE REPORTED TAKING THE FOLLOWING OTC HOWEVER IT IS UNCLEAR WITH HER FILL HISTORY OF PRESCRIPTION MEDICATIONS HOW OFTEN SHE TAKES THESE OTC MEDS, I DID INCLUDE THEM ON THE MED REC. ASPIRIN 81MG DAILY MTV DAILY BENADRYL PRN SLEEPING IBU 2 PRN
--- NOTE | 2018-09-05 13:09 | Diagnostic Imaging Report ---
PROCEDURE: MR imaging of the brain without contrast. TECHNIQUE: Multiplanar, multisequence MR imaging of the brain was performed without contrast. INDICATION: Left-sided weakness. COMPARISON: CT head on 09/04/2018. FINDINGS: Small focus of acute ischemia is visualized involving the right basal ganglia. No evidence of hemorrhagic conversion or mass effect. Encephalomalacia is seen in the right occipital lobe and left cerebellum. Chronic microvascular disease is scattered in the periventricular and subcortical white matter. No acute hemorrhage. The ventricles, cortical sulci, and basilar cisterns are symmetric and unremarkable. The sellar and suprasellar regions have a normal appearance. Calcified meningioma involving the left convexity is again seen overlying the left frontal lobe measuring 1.9 x 1.7 cm with associated calvarial hyperostosis. The brainstem and posterior fossa are unremarkable. Small amount of retained secretions are seen in the right maxillary sinus. Otherwise, the paranasal sinuses and mastoid air cells demonstrate normal signal characteristics. The globes and orbits are symmetric and unremarkable. The scalp and calvarium have a normal appearance. IMPRESSION: 1. Small focus of acute ischemia involving the right basal ganglia. No hemorrhagic conversion or mass effect. 2. 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 3. Chronic microvascular disease. 4. Calcified meningioma overlying the left convexity. No associated parenchymal edema. Findings were discussed with Fabienne Duckworth at 01:00 p.m. on 09/05/[address] Luis Carlos Auguste. Dictated by: Dictated on workstation # [id number]
--- NOTE | 2018-09-05 14:53 | ST Cognitive Linguistic Eval ---
Speech Evaluation-General Medical Diagnosis TIA and hypoglycemia Onset Date: Sep 03, 2018 Therapy Diagnosis Therapy Diagnosis: Cognitive-communication Precautions Precautions/Isolations: Fall Prevention, Standard Precautions Medical History Reviewed History: Yes Social History Current Living Status: Spouse Speech PLF-Current Status Prior Level of Function The patient lived at home with her spouse where she was independent for all of her daily needs. Subjective The patient was pleasant and cooperative with the cognitive evaluation. Language Eval: Auditory Comprehends Simple Yes/No Ques: Functional Indent/Objects Multiple Lindsay: Functional Ident/Pics in Multiple Lindsay: Functional Follows 1-Step Commands: Functional Follows Complex Directions: Functional Follows General Conversations: Functional Language Eval: Verbal Language Completes Spontaneous Greeting: Functional Produces Auto, Serial Info: Functional Imitates Simple Words/Phrases: Functional Word Finding: Functional Requests Basic Needs: Functional States Basic Personal Info: Functional Expresses Complex Ideas: Functional Objective Cognitive Domain Attention: WNL Memory: WNL Problem Solving: Functional Executive Functions: WNL Visuospatial Skills: WNL Composite Severity Rating: WNL Objective Formal/Standardized Tests [facility] Mental Status ([facility]) Results Patient scored a 28/30 which falls within the normal range. Oral Motor/Speech Production Patient has slight left sided droop, however her speech in intelligible. Impression The patient is a pleasant 58 year old female who was admitted to the hospital via ED due to TIA and hypoglycemia. The patient was evaluated while she was sitting up in her chair. Oral motor function for oral intake is within functional limits even with slight left sided droop. Speech production is intelligible. The patient completed the SLUMS with a score of 28/30 which falls in the normal range. At this time the patient will not receive skilled ST services. Clinician will follow up with the patient periodically for her oral motor function. This information was provided to her nurse. Speech-Plan Patient/Family Goals Patient/Family Goals: The patient plans on returning home with her upon hospital discharge. Treatment Plan Speech Therapy Treatment Plan: Discontinue ST The patient does not require skilled ST at this time. It is expected the left sided facial droop will continue to resolve on it's on. ST will follow up tomorrow to determine if further services are needed. Treatment Duration: Sep 05, 2018 Frequency: 1 time per week Estimated Hrs Per Day: .25 hour per day Rehab Potential: Fair Barriers to Learning: New onset CVA Pt/Family Agrees to Plan: Yes Safety Risks/Education Teaching Recipient: Patient, Family Teaching Methods: Discussion Response to Teaching: Verbalize Understanding Education Topics Provided: Safety within her room and with oral intake. Time Speech Therapy Time In: 14:30 Speech Therapy Time Out: 14:45 Total Billed Time: 15 Billed Treatment Time 1, ANATOLIY Romero Sep 05, 2018 14:53
--- NOTE | 2018-09-05 15:45 | Pulmonary Consultation ---
History of Present Illness History of Present Illness Date of Consultation 09/05/18 15:43 Date of Admission Allergies and Home Medications Allergies Coded Allergies: cefdinir (Verified Adverse Reaction, Mild, NAUSEA, yeast infection, 09/04/18) Cephalosporins (Verified Adverse Reaction, Unknown, yeast infections, 09/04/18) Home Medications Aspirin 81 Mg Tablet.dr, 81 MG PO DAILY, (Reported) Diphenhydramine HCl 25 Mg Capsule, 25 MG PO HS PRN for SLEEP, (Reported) Ibuprofen 200 Mg Tablet, 400 MG PO Q8H PRN for PAIN-MILD, (Reported) Multivitamin 1 Each Tablet, 1 TAB PO DAILY, (Reported) Past Ewmqgaa-Gbacbt-Onbtxb Hx Past Med/Social Hx: Reviewed Nursing Past Med/Soc Hx Patient Social History Alcohol Use: Occasionally Uses Recreational Drug Use: No Smoking Status: Current Everyday Smoker Type Used: Cigarettes 2nd Hand Smoke Exposure: Yes Recent Foreign Travel: No Contact w/Someone Who Travel: No Recent Infectious Disease Expo: No Recent Hopitalizations: No Physical Abuse: No Sexual Abuse: No Mistreated: No Fear: No Immunizations Up To Date Tetanus Booster (TDap): Less than 5yrs PED Vaccines UTD: No Date of Pneumonia Vaccine: Jan 02, 2007 Date of Influenza Vaccine: Nov 23, 2013 Seasonal Allergies Seasonal Allergies: Yes Past Medical History Surgeries: Yes (kidney and bladder surgery as a child) Appendectomy, Section, Coronary Stent, Gallbladder Respiratory: No Currently Using CPAP: No Currently Using BIPAP: No Cardiac: Yes Coronary Artery Disease, Hypertension, Irregular Heartbeat Neurological: Yes : No Reproductive Disorders: No Female Reproductive Disorders: Denies Sexually Transmitted Disease: No HIV/AIDS: No Genitourinary: Yes UTI-Chronic Gastrointestinal: Yes Gastroesophageal Reflux, Gall Bladder Disease Musculoskeletal: No Endocrine: Yes Diabetes, Non-Insulin dep Are Your Blood Sugars Over 250: No HEENT: No Loss of Vision: Denies Hearing Impairment: Denies Cancer: No Psychosocial: No Integumentary: No Blood Disorders: No Adverse Reaction/Blood Tranf: No Family Medical History Reviewed Nursing Family Hx Arthritis Cataracts Diabetes mellitus Hypercholesterolemia Hypertension No Family History of: AIDS Abdominal aortic aneurysm Deuel's disease Alcoholism Alzheimer's disease Aphasia Asthma Cancer of mouth Cardiovascular disease Colon cancer Completed stroke Congenital disease Congenital heart disease Coronary thrombosis Cystic fibrosis Deafness or hearing loss Dementia Drug abuse Dysphasia Fibrocystic disease of breast Gastroenteritis Glaucoma Headache disorder Infertility Kidney disease Myocardial infarction Neoplasm Not obtainable due to adoption Osteoporosis Parkinson's disease Prostate cancer Psychosocial problem Respiratory disorder Seizure disorder Severe allergy Thyroid disease Tuberculosis Visual disorder Sepsis Event Evaluation Height, Weight, BMI Height: 5'8.00" Weight: 158lbs. 8.0oz. 71.024761uu; 23.8 BMI Method:Stated Exam Exam Vital Signs Date Time Temp Pulse Resp B/P (MAP) Pulse Ox O2 Delivery O2 Flow Rate FiO2 09/05/18 15:02 Room Air 09/05/18 12:42 72 09/05/18 12:30 87 18 102/70 (81) 95 Room Air 09/05/18 12:00 97.4 09/05/18 11:32 Room Air 09/05/18 10:00 82 19 114/52 (72) 98 Room Air 09/05/18 09:00 82 13 98/70 (79) 96 Room Air 09/05/18 08:00 97.1 09/05/18 08:00 80 20 96/66 (76) 97 Room Air 09/05/18 08:00 Room Air 09/05/18 07:00 78 09/05/18 07:00 72 18 125/76 (92) 94 Room Air 09/05/18 06:00 67 19 111/63 (79) 91 Room Air 09/05/18 05:00 94 18 94/85 (88) 96 Room Air 09/05/18 04:00 77 20 99/63 (75) 92 Room Air 09/05/18 04:00 96 Room Air 09/05/18 03:00 82 21 106/64 (78) 91 Room Air 09/05/18 02:00 75 21 92/49 (63) 93 Room Air 09/05/18 01:00 78 09/05/18 01:00 73 21 102/58 (73) 93 Room Air 09/05/18 00:11 80 19 87/63 (71) 94 Room Air 09/05/18 00:00 96 Room Air 09/05/18 00:00 96.9 09/04/18 23:00 81 13 94/82 (86) 94 Room Air 09/04/18 22:00 81 33 113/51 (71) 96 Room Air 09/04/18 21:40 76 17 122/76 (91) 97 Room Air 09/04/18 20:00 76 17 113/78 (90) 94 Room Air 09/04/18 20:00 96 Room Air 09/04/18 20:00 97.1 09/04/18 19:57 70 09/04/18 19:00 76 15 114/72 (86) 97 Room Air 09/04/18 16:02 97.6 76 18 106/63 (77) 96 Room Air I & O 09/05/18 07:00 Intake Total 850 ml Balance 850 ml Height & Weight Height: 5'8.00" Weight: 158lbs. 8.0oz. [id number]; 23.8 BMI Method:Stated General Appearance: No Apparent Distress, WD/WN HEENT: PERRL/EOMI, Moist Mucous Membranes; No Scleral Icterus (L), No Scleral Icterus (R) Neck: Normal Inspection, Supple; No Thyromegaly Respiratory: Lungs Clear, No Accessory Muscle Use, No Respiratory Distress Cardiovascular: Regular Rate, Rhythm, No Murmur, Normal Peripheral Pulses Capillary Refill: Less Than 3 Seconds Gastrointestinal: normal bowel sounds, non tender, soft Extremity: Normal Capillary Refill, No Calf Tenderness, No Pedal Edema Neurologic/Psychiatric: Alert, Oriented x3, No Motor/Sensory Deficits, Normal Mood/Affect; No Aphasia, No Facial Droop Skin: Normal Color, Warm/Dry Results Lab Laboratory Tests 09/04/18 05:35 09/05/18 02:51 Assessment/Plan Assessment/Plan acute CVA -Currently on ASA - will change to Plavix -PT/OT -Possible in patient rehab NIDDM -SSI -Takes Metformin at home Tobacco use -Education RASHEEDA GUALLPA DO Sep 05, 2018 15:45
[2018-09-05] MEDS: CLOPIDOGREL 75 MG (PLAVIX) TABLET PO SCH (15:47)
--- NOTE | 2018-09-05 15:51 | Occupational Therapy Eval ---
OT Evaluation-General/PLF Medical Diagnosis Admission Date Sep 04, 2018 at 15:44 Medical Diagnosis: TIA and hypoglycemia, L sided weakness Onset Date: Sep 03, 2018 Therapy Diagnosis Therapy Diagnosis: decr self care, weakness, incoordination, decr funct mobility Height/Weight Height (Feet): 5 Height (Inches): 8.00 Weight (Pounds): 158 Weight (Ounces): 8.0 Precautions Precautions/Isolations: Fall Prevention, Standard Precautions Safety Interventions: Reorient-PRN Referral Physician: Fabienne Duckworth MD Referral Reason: Evaluation/Treatment Medical History Pertinent Medical History: CAD, DM, GERD, HTN, Smoking Additional Medical History Chronic UTI. Irregular heartbeat. Coronary stents Current History Had some arm weakness driving home from [place]. Fell asleep on couch and then couldn't get up. L UE and LE weakness, incoordination. Reviewed History: Yes Social History Home: Single Level Current Living Status: Spouse Entry Into Home: Stairs Without Railing Steps Into Home: 4 ADL-Prior Level of Function Therapy Code Descriptions/Definitions Functional [place] Measure: 0=Not Assessed/NA 4=Minimal Assistance 1=Total Assistance 5=Supervision or Setup 2=Maximal Assistance 6=Modified [place] 3=Moderate Assistance 7=Complete [place] Therapy Quality Codes: 6 Independent with activity with or without an assistive device 5 Patient requires set up or clean up by helper. Patient completes activity by themselves 4 Supervision or touching assist (CGA). [place] provide cues , steadying assist 3 The helper provides less than half the effort to complete the activity 2 The helper provides more than half the effort to complete the activity 1 Dependent. The helper does all the effort to complete an activity 7 Patient refused to complete or attempt activity 9 The patient did not perform the activity before the current illness or injury 88 Not attempted due to Medical conditions or safety concerns Functional Abilities and Goals: Independent: Patient completed the activities by him/herself, with or without an assistive device, with no assistance from a helper. Needed Some Help: Patient needed partial assistance from another person to complete activities. Dependent: A helper completed the activities for the patient. Unknown: Not Applicable: ADL PLOF Comments Pt reported that she has been able to manage all of her basic self care needs and care for her home. 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 Self Care: Independent Functional Cognition: Independent OT Current Status Subjective Pt seen in room, up in bed, agreeable to OT. No pain reported. Appearance Alert, cooperative. Tearful at times Mental Status/Objective Attachments: IV, Telemetry Current Hand Dominance: Right Upper Extremity ROM R grossly WFL. L passive range WFL. Actively has movement in all joints but some limitations due to muscle weakness. Unable to make a complete fist, touch finger tips to thumb, isolate intrinsic muscle actions in hand. Upper Extremity Sensation Pt reported some numbness along ulnar side L hand Upper Extremity Strength L UE grossly 3/5 throughout. Movements incoordinated and slow. Strength and coord appear to wax and wane ADL-Treatment ADL-Current Pt reported that she has been able to feed herself but needs someone to setup food for her. She transferred min/CGA with PT and was unable to hold on to walker with L hand. She has required assist for toileting. Therapy Code Descriptions/Definitions Functional [place] Measure: 0=Not Assessed/NA 4=Minimal Assistance 1=Total Assistance 5=Supervision or Setup 2=Maximal Assistance 6=Modified [place] 3=Moderate Assistance 7=Complete [place] Therapy Quality Codes: 6 Independent with activity with or without an assistive device 5 Patient requires set up or clean up by helper. Patient completes activity by themselves 4 Supervision or touching assist (CGA). [place] provide cues , steadying assist 3 The helper provides less than half the effort to complete the activity 2 The helper provides more than half the effort to complete the activity 1 Dependent. The helper does all the effort to complete an activity 7 Patient refused to complete or attempt activity 9 The patient did not perform the activity before the current illness or injury 88 Not attempted due to Medical conditions or safety concerns Eating (FIM): 5 Other Treatments Pt education on safety during exercises, to avoid bruising L arm. Pt educ different movements she can work on for strength and coordination L UE, including several different hand exercises. It's difficult for her to combine movements over several joints so some exercises have this component. present during education. pt left up in bed, all needs met. Education OT Patient Education: Exercise program, Purpose of tx/functional activities, Rehab process Teaching Recipient: Patient, Family Teaching Methods: Demonstration, Discussion Response to Teaching: Verbalize Understanding, Return Demonstration, Reinforcement Needed OT Skilled Nursing Goals Circular Distributor Goals Time Frame: Sep 12, 2018 Eating (FIM): 6 Grooming(FIM): 5 Bathing(FIM): 5 Upper Body Dressing(FIM): 5 Lower Body Dressing(FIM): 5 Toileting(FIM): 5 Toilet/Commode Transfer(FIM): 5 Shower Transfer(FIM): 5 Additional Goals: 1-Demonstrate ADL Tasks, 2-Verbalize Understanding, 3- ImproveStrength/Marco Antonio 1=Demonstrate adherence to instructed precautions during ADL tasks. 2=Patient will verbalize/demonstrate understanding of assistive devices/mod ifications for ADL. 3=Patient will improve strength/tolerance for activity to enable patient to perform ADL's. OT Education/Plan Problem List/Assessment Assessment: Decreased UE Strength, Dependent Transfers, Impaired Coordination, Impaired Self-Care Skills, Restricted Funct UE ROM Discharge Recommendations Plan Pt would benefit from skilled OT to increase her independence in basic self care to allow her to safely return home after TIA, with L sided weakness and incoordination. Plan/Recommendations: Continue POC Therapy D/C Recommendations: Acute Rehab Treatment Plan/Plan of Care Treatment,Training & Education: Yes Patient would benefit from OT for education, treatment and training to promote independence in ADL's, mobility, safety and/or upper extremity function for ADL's. Plan of Care: ADL Retraining, Functional Mobility, UE Funct Exercise/Act, UE Neuromus Re-Ed/Coord Treatment Duration: Sep 12, 2018 Frequency: 5 times per week Estimated Hrs Per Day: .5 hour per day Agreement: Yes Rehab Potential: Good Time/GCodes Start Time: 15:08 Stop Time: 15:28 Total Time Billed (hr/min): 20 Billed Treatment Time visit, 10 minutes evaluation moderate intensity, 10 minutes neuromotor BRITTON ROPER OT Sep 05, 2018 15:51
--- NOTE | 2018-09-05 16:07 | NUR ---
REPORT GIVEN TO ULICES ALMONTE, PT TRANSFERRED TO ROOM 416 VIA WC W/ STAFF/PERSONAL BELONGINGS. NO QUESTIONS/CONCERNS VOICED.
--- NOTE | 2018-09-05 17:27 | Progress Note - Hospitalist ---
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 She presented to the emergency room with complaints of left-sided but in particular left arm weakness. MRI this morning has confirmed an acute infarction in the area of the right basal ganglia. In addition a meningioma was noted at the left convexity and 2 previous infarcts were noted right and left. She reports that her arm is doing better today although when she awakened this morning this was not true. She has some difficulty and raising the left arm at the shoulder level. Physical exam: She is alert and oriented. She recognizes me. She has some difficulty in elevating the left arm at the shoulder level. The voip engineer on the left is reasonably good and only minimally less than on the right. She reports that when she was evaluated by a PT this morning, she was unable to voip engineer the walker with her left hand. Lungs are clear to auscultation. CV is regular w ithout murmur. She is able to straight leg lift bilaterally and equally. Impression: Recurrent infarct with left upper extremity defect. Plan: Switch from aspirin to Plavix as an inhibitor platelet aggregation. Proceed with physical therapy. REBEKAH MOJICA MD Sep 05, 2018 17:27
[2018-09-06 00:47] VITALS: BP 104/58
[2018-09-06 04:30] VITALS: BP 120/77
[2018-09-06] MEDS: inSUlin ASPART (NovoLOG) 1 UNIT/0.01 ML (CHARGE PER UNIT) SC SCH ×4 (06:31→21:26)
[2018-09-06] MEDS: ACETAMINOPHEN 325 MG TABLET PO PRN ×2 (06:35→21:27)
[2018-09-06 08:00] VITALS: BP 124/76
[2018-09-06] MEDS: CLOPIDOGREL 75 MG (PLAVIX) TABLET PO SCH (08:58)
[2018-09-06] MEDS: NICOTINE 14 MG (NICODERM) PATCH TD SCH (08:58)
--- NOTE | 2018-09-06 09:51 | Diagnostic Imaging Report ---
PROCEDURE: US carotid duplex, bilateral. TECHNIQUE: Multiple real-time grayscale images were obtained over the carotid arteries in various projections, bilaterally. Additional spectral analysis and color Doppler duplex images were also obtained. INDICATION: CVA, there are no prior carotid Doppler examinations available for comparison. The CTA head and neck exam performed on 09/04/2018 felt to show any sign of a hemodynamically significant stenosis of the carotid systems. On this exam there is mild soft plaque formation in both carotid bifurcations. Flow velocities fail to show any sign of a hemodynamically significant stenosis of the common or internal carotid arteries. Both vertebral arteries were noted there was antegrade flow bilaterally. IMPRESSION: There is no evidence for hemodynamically significant stenosis of either carotid system. The vertebral arteries show antegrade flow bilaterally. Parameters based on the consensus panel Bowen-Scale and Doppler ultrasound criteria published December 2002, Radiology, Volume 229. DOPPLER (peak systolic velocity M/S Right Left CCA .66 .60 ICA Proximal .50 .38 ICA Mid .54 .57 ICA Distal .47 .63 RATIO .81 1.05 ECA .81 .73 VERT .63 .46 Dictated by: Dictated on workstation # [id number]
--- NOTE | 2018-09-06 11:06 | Physical Therapy Daily Note ---
PT Daily Note-Current Subjective Pt agreeable to PT. Very happy to walk! During ambulation, pt reported it felt good to be upright and moving. Mental Status Patient Orientation: Person, Place, Time, Situation Transfers Therapy Code Descriptions/Definitions Functional [place] Measure: 0=Not Assessed/NA 4=Minimal Assistance 1=Total Assistance 5=Supervision or Setup 2=Maximal Assistance 6=Modified [place] 3=Moderate Assistance 7=Complete [place] Therapy Quality Codes: 6 Independent with activity with or without an assistive device 5 Patient requires set up or clean up by helper. Patient completes activity by themselves 4 Supervision or touching assist (CGA). [place] provide cues , steadying assist 3 The helper provides less than half the effort to complete the activity 2 The helper provides more than half the effort to complete the activity 1 Dependent. The helper does all the effort to complete an activity 7 Patient refused to complete or attempt activity 9 The patient did not perform the activity before the current illness or injury 88 Not attempted due to Medical conditions or safety concerns Sit to/from Stand: 3 (mod assist to come to a stand; assist to place left UE and skilled cues for sequencing and safety. ) Pt follows cues well and effectively participates with treatment Weight Bearing Right Lower Extremity: Right Weight Bearing/Tolerated Left Lower Extremity: Left Weight Bearing/Tolerated Gait Training Gait (FIM): 2 Distance (FIM): 5=494-50 ft Distance: 50 ft Gait Level of Assist: 3 (asssit at gait belt and assit to keep left hand on the walker due to decreased director life sciences strength) Gait Persons Needed: 1 Gait Assistive Device: FWW Gait with FWW with mod assist for safety. Pt unsteady at times but attempts to correct, needs intermittent balance assist. Pt able to turn around in the mayes with assist as well. Skilled cues for safety with stand to sit transfer. Exercises Seated Therapy Exercises: Ankle pumps, Long arc quads, Hip flexion Seated Reps: 10 (to promote active and intentional movement of her LE with accuracy) Assessment Current Status: Good Progress Pt is progressing but still has skilled needs for training and cues to further improve her mobility and safety. She has potential to make functional gains and will benefit from continued skilled services to address her mobility deficits. 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 She is motivated and cooperative. PT Short Term Goals Short Term Goals Time Frame: Sep 12, 2018 Gait (FIM): 1 Gait Distance Comment: 20' Gait Level of Assist: 4 Gait Assistive Device: Cane Large Base Quad, Cane Single Point, Walker [place] PT Plan Problem List Problem List: Activity Tolerance, Functional Strength, Safety, Balance, Gait, Transfer, Bed Mobility Treatment/Plan Treatment Plan: Continue Plan of Care Treatment Plan: Bed Mobility, Education, Functional Activity Marco Antonio, Functional Strength, Gait, Safety, Therapeutic Exercise, Transfers Treatment Duration: Sep 12, 2018 Frequency: 6 times per week Estimated Hrs Per Day: .25 hour per day Patient and/or Family Agrees t: Yes Safety Risks/Education Patient Education: Gait Training, Transfer Techniques, Safety Issues Teaching Recipient: Patient Teaching Methods: Demonstration, Discussion Response to Teaching: Return Demonstration, Reinforcement Needed Discharge Recommendations Therapy D/C Recommendations: Acute Rehab Time/GCodes Time In: 908 Time Out: 931 Total Billed Treatment Time: 23 Total Billed Treatment visit EX 10 GT 13 BRANDON CERVANTES PT Sep 06, 2018 11:06
[2018-09-06 12:00] VITALS: BP 130/77
--- NOTE | 2018-09-06 13:58 | Progress Note - Hospitalist ---
Progress Note Progress Notes/Assess & Plan Date Seen 09/06/18 Time Seen by Provider: 13:55 Assessment & Plan The patient reports she is doing much better today. She is eating with some enthusiasm. She was able to use her left hand with the walker today. Her dexterity is better and she has been better able to elevate her left arm anterior plane Physical exam: She is bright and her speech is clear. Lungs are clear to au scultation. CV is regular. She demonstrates raising her left arm. She is able to do thumb to finger alternating movements with good dexterity. Agricultural Engineering Technologist is 2+ and equal to the right this point in time. Impression: CVA right basal ganglia with improving dexterity left upper extremity Plan: REBEKAH Bland MD Sep 06, 2018 1:58 pm
--- NOTE | 2018-09-06 14:39 | Occupational Ther Daily Note ---
OT Current Status-Daily Note Subjective Pt alert, sitting in recliner. Pt's family present in room. Pt agrees to therapy. No c/o pain. Mental Status/Objective Patient Orientation: Person, Place, Time, Situation Therapy Code Descriptions/Definitions Functional [place] Measure: 0=Not Assessed/NA 4=Minimal Assistance 1=Total Assistance 5=Supervision or Setup 2=Maximal Assistance 6=Modified [place] 3=Moderate Assistance 7=Complete Power Attachments: IV ADL-Treatment Pt states that family and nrsg assist with bathing earlier in the day. Pt stated that she was able to reach all areas except feet while sitting on tub bench due to feeling like she was going to fall forward. CGA in standing to cleanse buttocks in shower, per pt. Pt demonstrates full AROM of L UE though uncoordinated and decreased strength against resistance. Pt able to oppose L fingers slowly with uncoordination. Pt demonstrated ability to don/doff socks in sitting, by crossing LE's over knee using B hands. Pt ambulated with CGA using FWW to bathroom to complete toileting. CGA for toilet transfer using FWW and grabbars. CGA for toileting using FWW and grabbars for stability. Pt ambulated to sink using FWW and stood with CGA using FWW to complete grooming. Pt used L hand to stabilize toothpaste cap when taking off and holding toothbrush when applying toothpaste. Pt ambulated back to recliner and demonstrated ability to don/doff shirt by self. Per pt, was able to open containers/packages to set up meal and use regular utensils to eat. After therapy, pt sitting in recliner with call light/phone in reach. All needs met in room. Eating (FIM): 6 Grooming (FIM): 4 Bathing (FIM): 4 (per pt report) Upper Body (FIM): 5 Lower Body Dressing (FIM): 4 Toileting (FIM): 4 Transfers (B, C, W/C) (FIM): 4 Toilet/Commode Transfer (FIM): 4 OT Short Term Goals Short Term Goals 1=Demonstrate adherence to instructed precautions during ADL tasks. 2=Patient will verbalize/demonstrate understanding of assistive devices/modifications for ADL. 3=Patient will improve strength/tolerance for activity to enable patient to perform ADL's. OT Cell Efficiency Supervisor Goals Cell Efficiency Supervisor Goals Time Frame: Sep 12, 2018 Eating (FIM): 6 Grooming(FIM): 5 Bathing(FIM): 5 Upper Body Dressing(FIM): 5 Lower Body Dressing(FIM): 5 Toileting(FIM): 5 Toilet/Commode Transfer(FIM): 5 Shower Transfer(FIM): 5 Additional Goals: 1-Demonstrate ADL Tasks, 2-Verbalize Understanding, 3- ImproveStrength/Marco Antonio 1=Demonstrate adherence to instructed precautions during ADL tasks. 2=Patient will verbalize/demonstrate understanding of assistive devices/modifications for ADL. 3=Patient will improve strength/tolerance for activity to enable patient to perform ADL's. OT Education/Plan Problem List/Assessment Assessment: Decreased Safety Aware, Decreased UE Strength, Impaired Coordination, Impaired Funct Balance, Impaired Self-Care Skills, Restricted Funct UE ROM Discharge Recommendations Plan/Recommendations: Continue POC Treatment Plan/Plan of Care Patient would benefit from OT for education, treatment and training to promote independence in ADL's, mobility, safety and/or upper extremity function for ADL's. Plan of Care: ADL Retraining, Functional Mobility, UE Funct Exercise/Act, UE Neuromus Re-Ed/Coord Treatment Duration: Sep 12, 2018 Frequency: 5 times per week Estimated Hrs Per Day: .5 hour per day Agreement: Yes Rehab Potential: Good Time/GCodes Start Time: 14:25 Stop Time: 14:48 Total Time Billed (hr/min): 23 Billed Treatment Time 1 visit-ADL 2 (23 min) BRANDON MCCLAIN Sep 06, 2018 14:39
--- NOTE | 2018-09-06 15:15 | NUR ---
IRF Evaluation Order received to evaluate patient for the ARU. Chart review complete and findings discussed with Dr. Shaver - patient accepted. It is noted patient's primary insurance provider is [employer]; therefore, a prior authorization will need to be obtained prior to admission. 1422 Received approval from [employer] for patient to admit to ARU, 09/07/18. Authorization provided 09/07-09/13; clinical updates due on the , if continuation of stay is needed. CM/SS and Dr. Shaver notified of approval. 2660 Met with patient to discuss details specific to rehabilitation program. 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 Patient agreeable to required therapy regimen and admission. Thank you for this referral.
[2018-09-06 16:00] VITALS: BP 152/82
[2018-09-06] MEDS: NICOTINE PATCH REMOVAL TP SCH (16:42)
--- NOTE | 2018-09-06 17:00 | NUR ---
REPORT RECEIVED FROM GUIDO RAMIRES RN. ASSUMED CARE OF THE PATIENT AT THIS TIME. PATIENT DENIES ANY NEEDS. WILL CONTINUE TO MONITOR.
[2018-09-06 20:00] VITALS: BP 145/87
[2018-09-07] VITALS: BP 128/72
[2018-09-07 04:00] VITALS: BP 108/57
[2018-09-07] MEDS: inSUlin ASPART (NovoLOG) 1 UNIT/0.01 ML (CHARGE PER UNIT) SC SCH ×2 (06:29→11:27)
[2018-09-07 08:00] VITALS: BP 100/57
[2018-09-07] MEDS: CLOPIDOGREL 75 MG (PLAVIX) TABLET PO SCH (08:52)
[2018-09-07] MEDS: NICOTINE PATCH REMOVAL TP SCH (08:52)
[2018-09-07] MEDS: NICOTINE 14 MG (NICODERM) PATCH TD SCH (08:52)
--- NOTE | 2018-09-07 10:31 | Progress Note - Hospitalist ---
Progress Note Progress Notes/Assess & Plan Date Seen 09/07/18 Time Seen by Provider: 10:28 Assessment & Plan The patient continues to report improvement. She is to go to the inpatient rehabilitation facility today. It is noted that her blood sugars are running higher than desirable. She is anxious to get with the program. Physical exam: She is sitting in the chair alert and pleasant. Lungs are clear to auscultation. CV is regular without murmur. She is judged to have better anterior flexion of her shoulder and her clerk analyst appears to be normal on the left. Impression: Acute right CVA in the area of the basal ganglia. 2.debility primarily left upper extremity. 3.2 previous old CVAs and a small meningioma. 4.diabetes poorly controlled. Plan: Transfer to [facility] REBEKAH MOJICA MD Sep 07, 2018 10:31
[2018-09-07] MEDS ORDERED: INSU100V16 SC (10:38)
[2018-09-07] MEDS ORDERED: INSU100V5 SQ (10:38)
[2018-09-07] MEDS ORDERED: ATOR40TA PO (10:38)
[2018-09-07] MEDS ORDERED: CLOP75TA28 PO (10:39)
--- NOTE | 2018-09-07 10:46 | Discharge Inst-Simple/Standard ---
Discharge Inst-Standard Patient Instructions/Follow Up Plan of Care/Instructions/FU[facility] on discharge sequence. Activity as Tolerated: Yes Discharge Diet: ADA Diet REBEKAH MOJICA MD Sep 07, 2018 10:46
--- NOTE | 2018-09-07 10:54 | Discharge Summary ---
Diagnosis/Chief Complaint Date of Admission Sep 04, 2018 at 15:44 Date of Discharge Discharge Date: Sep 07, 2018 Admission Diagnosis TIA Discharge Diagnosis 1.CVA in the distribution of the right basal ganglia. 2.paroxysmal primarily left upper extremity. 3.diabetes type II poorly controlled. 4.tobaccoism. 5.2 previous CVAs plus small meningioma. (1) Transient ischemic attack (TIA) Status: Acute (2) HTN (hypertension) (3) CAD (coronary artery disease) (4) Hyperglycemia due to type 2 diabetes mellitus Status: Acute (5) Smoking Status: Acute Discharge Summary Discharge Physical Exam Allergies: Coded Allergies: cefdinir (Verified Adverse Reaction, Mild, NAUSEA, yeast infection, 09/04/18) Cephalosporins (Verified Adverse Reaction, Unknown, yeast infections, 09/04/18) Vitals & I&Os Vital Signs Date Time Temp Pulse Resp B/P (MAP) Pulse Ox O2 Delivery O2 Flow Rate FiO2 09/07/18 08:00 97.7 81 20 100/57 (71) 99 Room Air General Appearance: No Apparent Distress, WD/WN Hospital Course Was the Problem List Reviewed?: Yes The patient is a 58-year-old white 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 She was admitted on 09/04 with complaints of left-sided weakness. Initial tanning did not define a cerebral infarct however her left upper extremity showed considerable weakness and near flaccidity with loss of coordination. She was admitted. MRI the following day showed an acute infarct in the distribution of the right basal ganglia +2 previous infarcts and a small meningioma. It is also noted that she was not currently taking insulin and her blood sugars were considerably elevated. By day 2 she exhibited improvement throughout the day with regard to faith healer and some ability to anteflex her left shoulder. This improvement has continued [facility]. Her insulin doses will also be adjusted as necessary. Labs (last 24 hrs) Laboratory Tests 09/06/18 11:05: Glucometer 296H 09/06/18 14:38: 09/06/18 16:14: Glucometer 267H 09/06/18 20:32: Glucometer 266H 09/07/18 05:36: Glucometer 299H Microbiology 09/04/18 MRSA Screen - Preliminary, Resulted MRSA not isolated Patient resulted labs reviewed. Pending Labs Laboratory Tests 09/07/18 05:36: Glucometer 299 Imaging: Reviewed Imaging Report Discussion & Recommendations Discharge Planning: >30 minutes discharge planning Discharge Home Medications: Active Scripts Active Clopidogrel (Clopidogrel Bisulfate) 75 Mg Tablet 75 Mg PO DAILY Lipitor (Atorvastatin Calcium) 40 Mg Tablet 40 Mg PO DAILY Novolog (Insulin Aspart) 100 Unit/1 Ml Susp 5 Unit SC ACHS Levemir (Insulin Determir) 1,000 Units/10 Ml Soln 20 Unit SQ HS Reported Advil (Ibuprofen) 200 Mg Tablet 400 Mg PO Q8H PRN Benadryl (Diphenhydramine HCl) 25 Mg Capsule 25 Mg PO HS PRN Multivitamins (Multivitamin) 1 Each Tablet 1 Tab PO DAILY Aspirin EC (Aspirin) 81 Mg Tablet.dr 81 Mg PO DAILY Instructions to patient/family Please see electronic discharge instructions given to patient. Clinical Quality Measures DVT/VTE Risk/Contraindication: Risk Factor Score Per Nursin RFS Level Per Nursing on Admit: 2=Moderate Stroke: Date of last known well: Sep 04, 2018 Problem Qualifiers (1) HTN (hypertension): Hypertension type: essential hypertension Qualified Codes: I10 - Essential (primary) hypertension (2) CAD (coronary artery disease): Coronary Disease-Associated Artery/Lesion type: [place] artery [place] vs. transplanted heart: [place] heart Associated angina: without angina Qualified Codes: I25.10 - Atherosclerotic heart disease of [place] coronary artery without angina pectoris (3) Hyperglycemia due to type 2 diabetes mellitus: Diabetes mellitus skilled nursing insulin use: without skilled nursing use Qualified Codes: E11.65 - Type 2 diabetes mellitus with hyperglycemia REBEKAH MOJICA MD Sep 07, 2018 10:54
--- NOTE | 2018-09-07 11:16 | Pulmonary Progress Note ---
Subjective Time Seen by a Provider: 11:16 Subjective/Events-last exam No respiratory complications noted. Sepsis Event Evaluation Height, Weight, BMI Height: 5'8.00" Weight: 158lbs. 8.0oz. 71.185274yd; 23.8 BMI Method:Stated Exam Exam Vital Signs Date Time Temp Pulse Resp B/P (MAP) Pulse Ox O2 Delivery O2 Flow Rate FiO2 09/07/18 08:00 97.7 81 20 100/57 (71) 99 Room Air 09/07/18 08:00 99 Room Air 09/07/18 07:00 79 09/07/18 04:00 97.4 82 18 108/57 (74) 96 Room Air 09/07/18 01:00 84 09/07/18 00:00 97.1 73 20 128/72 (90) 92 Room Air 09/06/18 20:00 96 Room Air 09/06/18 20:00 97.7 78 18 145/87 (106) 96 Room Air 09/06/18 19:00 89 09/06/18 16:00 98.4 82 18 152/82 (105) 95 Room Air 09/06/18 12:35 83 09/06/18 12:00 97.8 66 18 130/77 (94) 98 Room Air I & O 09/07/18 07:00 Intake Total 1640 ml Balance 1640 ml Height & Weight Height: 5'8.00" Weight: 158lbs. 8.0oz. 71.871930gr; 23.8 BMI Method:Stated General Appearance: No Apparent Distress, WD/WN HEENT: PERRL/EOMI, Moist Mucous Membranes; No Scleral Icterus (L), No Scleral Icterus (R) Neck: Normal Inspection, Supple; No Thyromegaly Respiratory: Lungs Clear, No Accessory Muscle Use, No Respiratory Distress Cardiovascular: Regular Rate, Rhythm, No Murmur, Normal Peripheral Pulses Capillary Refill: Less Than 3 Seconds Gastrointestinal: normal bowel sounds, non tender, soft Extremity: Normal Capillary Refill, No Calf Tenderness, No Pedal Edema Neurologic/Psychiatric: Alert, Oriented x3, No Motor/Sensory Deficits, Normal Mood/Affect; No Aphasia, No Facial Droop Skin: Normal Color, Warm/Dry Assessment/Plan Assessment/Plan acute CVA - Plavix -PT/OT -Possible in patient rehab NIDDM -SSI -Takes Metformin at home Tobacco use -Education NO complications noted. I am going to sign off please call with any questions or concerns. RASHEEDA GUALLPA DO Sep 07, 2018 11:16
--- NOTE | 2018-09-07 12:05 | NUR ---
PT AMBULATED OFF FLOOR WITH PHYSICAL THERAPY AT SIDE. REPORT GIVEN TO GAGE GONCALVES. ALL BELONGINGS SENT WITH PT.
== END 2018-09-07 12:00 | DRG 65 ==
LOC: EDUNIT# 05:28 → ER 05:31 → UNDOADMOB 07:50 → 4TH 07:50 → INTOOBSV 15:44 → OBSVTOIN 15:44 → 4TH 17:57 → ICU 17:57 → 4TH 09-05 16:12 → ICU 09-05 16:12 → UNDODISIN 09-07 12:00
PROVIDERS: ADMIT Family Medicine; ATTEND Family Medicine
DX: I63.9 Cerebral infarction, unspecified (principal); G81.94 Hemiplegia, unspecified affecting left nondominant side; I10 Essential (primary) hypertension; I25.10 Atherosclerotic heart disease of native coronary artery without angina pectoris; E11.65 Type 2 diabetes mellitus with hyperglycemia; F17.210 Nicotine dependence, cigarettes, uncomplicated; K21.9 Gastro-esophageal reflux disease without esophagitis; I49.9 Cardiac arrhythmia, unspecified; D49.7 Neoplasm of unspecified behavior of endocrine glands and other parts of nervous system; Z87.440 Personal history of urinary (tract) infections; Z79.84 Long term (current) use of oral hypoglycemic drugs; Z95.5 Presence of coronary angioplasty implant and graft; Z86.73 Personal history of transient ischemic attack (TIA), and cerebral infarction without residual deficits
CPT/HCPCS: 36415; 70450; 70496; 70498; 70551; 71045; 80048; 80053; 80061; 81000; 82962; 83036; 83735; 84100; 84484; 85025; 85379; 85610; 85730; 86038; 87081; 93005; 93041; 93320; 93880; 96372; G0378

== ENCOUNTER 2018-09-07 08:33 | Inpatient (IN) | payer OTHER ==
[~2018-09-07] VITALS: Ht 172.7 cm; Wt 75.7 kg
[~2018-09-07 08:33] MED LIST changes: +ASPI-983 PO; +DIPH25CA79 PO; +IBUP-30 PO; +METF-397 PO; +METF-399 PO; +MULT1TAB69 PO
[2018-09-07] MEDS ORDERED: ATOR40TA PO (10:38)
[2018-09-07] MEDS ORDERED: INSU100V5 SQ (10:38)
[2018-09-07] MEDS ORDERED: INSU100V16 SC (10:38)
[2018-09-07] MEDS ORDERED: CLOP75TA28 PO (10:39)
--- NOTE | 2018-09-07 11:00 | PM&R H&P / Post Admit Assess ---
History of Present Illness HPI/Chief Complaint CC: Right basal ganglia stroke HPI: This is a 58yoWF clinic pt of Dr. 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 Pt was admitted placed on TIA protocol and CT scan showed no evidence of hemorrhage pt was closely monitored placed on Telemetry checked echocardiogram laboratory monitoring and close blood sugar control although HGB A1C was 12.2. MRI confirmed right basal ganglia infarct. Dr. Awad will se her in consultation for risk stratification of and embolic stroke and she will be maintained on telemetry an overall has seen an immense improvement in her symptoms but still having issues with walking in addition to fine motor skills of the left hand. Smoking cessation counseled and insulin initiation will be started and carotid ultrasound was reviewed which showed no stenosis, chest xray was negative but the MRI did show prior CVAs. She does want to treat her Neuropathy with Lyrica and we will start her on 50mg tonight. Source: patient, RN/MD, old records Exam Limitations: no limitations Date Seen 09/07/18 Time Seen by a Provider: 14:00 Attending Physician Haven Castillo DO PCP Luis Denis DO Referring Physician Date of Admission Home Medications & Allergies Home Medications Reviewed patient Home Medication Reconciliation performed by pharmacy medication reconciliations predictive maintenance technician and/or nursing. Patients Allergies have been reviewed. 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) Alcohol Use: Denies Use Smoking Status: Current Everyday Smoker Type Used: Cigarettes 2nd Hand Smoke Exposure: Yes Recent Hopitalizations: No Immunizations Up To Date Tetanus Booster (TDap): Less than 5yrs Pediatric: No Date of Pneumonia Vaccine: Jan 02, 2007 Date of Influenza Vaccine: Nov 23, 2013 Seasonal Allergies Seasonal Allergies: Yes Past Medical History Surgeries: Appendectomy, Section, Coronary Stent, Gallbladder Currently Using CPAP: No Currently Using BIPAP: No Cardiac: Coronary Artery Disease, Hypertension, Irregular Heartbeat Neurological: Neuropathy Reproductive: No Sexually Transmitted Disease: No HIV/AIDS: No Female Reproductive Disorders: Denies Genitourinary: UTI-Chronic Gastrointestinal: Gastroesophageal Reflux, Gall Bladder Disease Endocrine: Diabetes, Insulin dep Loss of Vision: Denies Hearing Impairment: Denies History of Blood Disorders: No Adverse Reaction to Blood Solitario: No Family History Arthritis Cataracts Diabetes mellitus Hypercholesterolemia Hypertension No Family History of: AIDS Abdominal aortic aneurysm [place]'s disease Alcoholism Alzheimer's disease Aphasia Asthma Cancer of mouth Cardiovascular disease Colon cancer Completed stroke Congenital disease Congenital heart disease Coronary thrombosis Cystic fibrosis Deafness or hearing loss Dementia Drug abuse Dysphasia Fibrocystic disease of breast Gastroenteritis Glaucoma Headache disorder Infertility Kidney disease Myocardial infarction Neoplasm Not obtainable due to adoption Osteoporosis Parkinson's disease Prostate cancer Psychosocial problem Respiratory disorder Seizure disorder Severe allergy Thyroid disease Tuberculosis Visual disorder Review of Systems Constitutional: see HPI, weakness EENTM: no symptoms reported Respiratory: no symptoms reported Cardiovascular: no symptoms reported Gastrointestinal: no symptoms reported Genitourinary: no symptoms reported Musculoskeletal: no symptoms reported Psychiatric/Neurological: Numbness, Paresthesia, Other (neuropathy) All Other Systems Reviewed Negative Unless Noted: Yes Physical Exam Exam Vital Signs Vital Signs Date Time Temp Pulse Resp B/P (MAP) Pulse Ox O2 Delivery O2 Flow Rate FiO2 09/07/18 19:00 83 09/07/18 16:33 97.0 20 129/84 (99) 97 Room Air Capillary Refill : General Appearance: No Apparent Distress, WD/WN, Chronically ill HEENT: PERRL/EOMI, Normal ENT Inspection, Pharynx Normal, Moist Mucous Membranes Neck: Full Range of Motion, Normal Inspection, Non Tender, Supple Respiratory: Chest Non Tender, Lungs Clear, Normal Breath Sounds, No Accessory Muscle Use, No Respiratory Distress Cardiovascular: Regular Rate, Rhythm, No Edema, No Gallop, No JVD, No Murmur Gastrointestinal: Normal Bowel Sounds, No Organomegaly, No Pulsatile Mass, Non Tender, Soft Back: Normal Inspection, No CVA Tenderness, No Vertebral Tenderness Extremity: Normal Capillary Refill, Normal Inspection, Normal Range of Motion, Non Tender, No Calf Tenderness, No Pedal Edema Neurologic/Psychiatric: Alert, Oriented x3, No Motor/Sensory Deficits (decreased strength left upper and lower), Normal Mood/Affect, grain mixer II-XII Norm as Tested, Motor Weakness (left sided weakness) Skin: Normal Color, Warm/Dry Lymphatic: No Adenopathy Results Results/Procedures Labs Patient resulted labs reviewed. Assessment/Plan Assessment and Plan Assess & Plan/Chief Complaint Assessment: Subacute right basal ganglia infarct with subsequent left sided weakness residual Diabetes mellitus now insulin-dependent. Hpj-lg-stfnyyo levels of 12.2 hemoglob in A1c Hypertension Smoker in midst of cessation Hyperlipidemia CAD previous stent Neuropathy Plan: Inpatient rehabilitation protocols Lyrica 50 MG daily at bedtime Monitor blood sugar and blood pressure Consult cardiology Plavix replacing aspirin since she was on aspirin before and suffered a stroke Monitor closely (1) Infarction of right basal ganglia (2) Smoker (3) Cerebrovascular small vessel disease (4) Presence of stent in coronary artery (5) CAD (coronary artery disease) (6) HTN (hypertension) (7) Hyperglycemia due to type 2 diabetes mellitus Post Admission Physician Asses Date seen by provider: Sep 07, 2018 Time seen by provider: 14:00 Admisison Dx: (1) CVA (cerebral vascular accident) The preadmission screen agrees with the post admission assessment that the patient is a good candidate for inpatient rehabilitation. The patient will have a comprehensive program of inpatient rehabilitation with a goal of maximizing level of functional independence prior to discharge home with family. The patient will have PT/OT ninety minutes per day, each discipline, five days a week for gait, strengthening, conditioning, balance, ADLs, any patient/family/caregiver training as necessary. Speech therapy to do cognitive assessment and treat as indicated. Rehabilitation nursing to assist with bowel, bladder, skin, wound care, medication administration, pain management. Printed Circuit Board Layout Designer to assist with discharge planning, community reentry. SCD's for DVT prophylaxis. She appears to be well motivated to participate in three hours of therapy a day. She should be able to tolerate three hours of therapy a day from a medical standpoint. She should benefit from the three hours of therapy a day. She has a reasonable discharge plan, reasonable discharge rehabilitation goals and a supportive family. She has various comorbidities that need to be closely monitored with medications and treatments adjusted on a daily basis as needed. These include: see list Barriers to discharge for this patient who had been independent prior to this are for her to be modified independent to supervision for ADLs and mobility skills prior to discharge home with family, so as to lessen the burden of the caregivers. Risks for this patient include: 1. Fall 2. Fracture 3. DVT 4. Pulmonary embolism 5. Wound infection 6. Skin breakdown 7. Contractures 8. Poorly controlled pain 9. Urinary retention 10. UTI 11. Respiratory infection 12. Aspiration Estimated Length of Stay: 7 days Prognosis: Rehab prognosis appears good for goal of discharge home with family modified independent to supervision for ADLs and mobility skills. HAEVN CASTILLO DO Sep 07, 2018 11:00
[2018-09-07 12:33] VITALS: BP 135/84
--- NOTE | 2018-09-07 12:33 | NUR ---
REVIEWED MED REC IT WAS REPORTED UPON ADMISSION TO ICU. NOTE THE FOLLOWING CHANGES WERE MADE WHEN THE PATIENT DISCHARGED TO REHAB THAT ARE NOT CURRENTLY REFLECTED ON THE HOME MED REC. START TAKING: LIPITOR 40MG DAILY PLAVIX 75MG DAILY NOVOLOG 5 UNITS ACHS LEVEMIR 20 UNITS HS
--- NOTE | 2018-09-07 12:56 | Physical Therapy Evaluation ---
PT Evaluation-General Medical Diagnosis Admission Date Sep 07, 2018 at 12:00 Medical Diagnosis: CVA Onset Date: Sep 07, 2018 Therapy Diagnosis Therapy Diagnosis: weakness; abn gait Height/Weight Height (Feet): 5 Height (Inches): 8.00 Weight (Pounds): 166 Weight (Ounces): 0.0 Precautions Precautions/Isolations: Standard Precautions Referral Physician: Sivakumar Reason for Referral: Evaluation/Treatment Medical History Pertinent Medical History: CAD, DM, GERD, HTN, Smoking Current History Presented to the ER on 09/04/18 with complaints of left sided weakness and tingling. Pt was transferred to ARU post acute hospital stay for continued therapy services post CVA. Reviewed History: Yes Social History Home: Single Level Current Living Status: Spouse (her daughter and grandchildren live with her as well) Entry Into Home: Stairs Without Railing (reports she can use the window sill and house for support on her right) PT Steps Into Home: 3 PT Steps Inside Home: 12 (to the basement where her laundry is located) Prior/Core FIM Prior Level of Function Therapy Code Descriptions/Definitions Functional [place] Measure: 0=Not Assessed/NA 4=Minimal Assistance 1=Total Assistance 5=Supervision or Setup 2=Maximal Assistance 6=Modified [place] 3=Moderate Assistance 7=Complete [place] Therapy Quality Codes: 6 Independent with activity with or without an assistive device 5 Patient requires set up or clean up by helper. Patient completes activity by themselves 4 Supervision or touching assist (CGA). [place] provide cues , steadying assist 3 The helper provides less than half the effort to complete the activity 2 The helper provides more than half the effort to complete the activity 1 Dependent. The helper does all the effort to complete an activity 7 Patient refused to complete or attempt activity 9 The patient did not perform the activity before the current illness or injury 88 Not attempted due to Medical conditions or safety concerns Functional Abilities and Goals: Independent: Patient completed the activities by him/herself, with or without an assistive device, with no assistance from a helper. Needed Some Help: Patient needed partial assistance from another person to complete activities. Dependent: A helper completed the activities for the patient. Unknown: Not Applicable: Bed Mobility: 7 Transfers (B,C,W/C) (FIM): 7 Gait: 7 Stairs: 7 Indoor Mobility (Ambulation): Independent Stairs: Independent Pt independent and active. 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 PT Evaluation-Current Subjective Pt agreeable to PT. Anxious to get to start so she can get strong enough to go home. Reports she feels she makes progress every day. Pain Numeric Pain Scale: 0-No Pain Location: No Pain Reported Objective Patient Orientation: Person, Place, Time, Situation Problem Solving: Good (impulsive at times; but slows with cueing) ROM/Strength ROM Lower Extremities WNL Strenght Lower Extremities Right hip flexion 4-/5 all other is 5/5; left hip flexion 3/5; quads 4-/5, hamstrings 4-/5 and DF 4-/5. Integumentary/Posture Integumentary intact Bowel Incontinence: No Bladder Incontinence: No Posture slightly rounded shoulders; symmetrical Neuromuscular (Tone, Coordination, Reflexes) Left LE: no noted increased tone; coordination is impaired and reflexes are diminished. Right LE WNL Sensory Vision: Functional Hearing: Functional Hand Dominance: Right Sensation Right Lower Extremit: Intact Sensation Left Lower Extremity: Impaired Sensation Lower Extremities Left LE sensation slightly diminished but she also attributes it to neuropathy. Transfers Therapy Code Descriptions/Definitions Functional [place] Measure: 0=Not Assessed/NA 4=Minimal Assistance 1=Total Assistance 5=Supervision or Setup 2=Maximal Assistance 6=Modified [place] 3=Moderate Assistance 7=Complete [place] Therapy Quality Codes: 6 Independent with activity with or without an assistive device 5 Patient requires set up or clean up by helper. Patient completes activity by themselves 4 Supervision or touching assist (CGA). [place] provide cues , steadying assist 3 The helper provides less than half the effort to complete the activity 2 The helper provides more than half the effort to complete the activity 1 Dependent. The helper does all the effort to complete an activity 7 Patient refused to complete or attempt activity 9 The patient did not perform the activity before the current illness or injury 88 Not attempted due to Medical conditions or safety concerns Transfers (B, C, W/C) (FIM): 4 Roll Left to Right (QC): 4 Supine to/from Sit: 4 Sit to/from Stand: 4 (skilled cues for sequencing and hand placement. CGA for safety.) Sit to Lying (QC): 4 (CGA to guide her trunk) Lying to Sitting/Side of Bed(Q: 4 (CGA) Sit to Stand (QC): 4 Chair/Vko-ht-Fugny Xfer(QC): 4 Car Transfer (QC): 4 Skilled cues for safety and sequencing as well as hand placement. Gait Does the Patient Walk?: Yes Mode of Locomotion: Walk Anticipated Mode of Locomotion: Walk Gait (FIM): 2 Distance (FIM): 8=538-24 ft Walk 10 feet (QC): 4 Walk 50 ft with 2 Turns(QC): 4 Walk 150 ft (QC): 88 Walking 10ft/uneven surface-QC: 4 Distance: 125 ft Gait Level of Assist: 4 (CGA with skilled cues for sequencing) Gait Assistive Device: FWW Comments/Gait Description Decreased coordination of left lE with gait. Wheelchair Training Does the Pt Use a Wheelchair?: No Stairs Stairs (FIM): 1 #of Steps: 1 Level of Assist: 4 (cues for sequncing and walker placement) 1 Step (curb) (QC): 4 4 Steps (QC): 88 Assistive Device: Walker 12 Steps (QC): 88 Balance Sitting Static: Fair Sitting Dynamic: Fair Standing Static: Fair Standing Dynamic: Fair Picking up an Object (QC): 88 Treatment Functional transfer training from multiple surfaces and gait training. Assessment/Needs Pt presents post CVA with left sided weakness. She requires CGA with transfers and gait for safety ad has limited functional activity tolerance and balance deficits. She is unable to manage at home safely and without assist. She will benefit from skilled therapy intervention to address her deficits to allow her to return home with family support. Rehab Potential: Good PT Short Term Goals Short Term Goals Time Frame: Sep 14, 2018 Transfers (B,C,W/C) (FIM): 5 Gait (FIM): 5 PT Steam Pan Sponger Goals Steam Pan Sponger Goals PT Steam Pan Sponger Goals Time Frame: Sep 21, 2018 Transfers (B,C,W/C) (FIM): 7 Sit to Lying (QC): 6 Lying-Sitting on Side/Bed(QC): 6 Sit to Stand (QC): 6 Roll Left to Right (QC): 6 Chair/Upy-wz-Uwhyc Xfer(QC): 6 Car Transfer (QC): 6 Does the Patient Walk: Yes Gait (FIM): 6 Gait distance (FIM): 3=150 ft Walk 10 feet (QC): 6 Walk 10ft-Uneven Surface(QC): 6 Walk 50ft with 2 Turns (QC): 6 Walk 150 ft (QC): 6 Gait Assistive Device: FWW Does the Pt use WC or Scooter?: No Stairs (FIM): 6 1 Step (curb) (QC): 6 4 Steps (QC): 6 12 Steps (QC): 6 Picking up an Object (QC): 4 PT Plan Problem List Problem List: Activity Tolerance, Functional Strength, Safety, Balance, Gait, Transfer, Bed Mobility Treatment/Plan Treatment Plan: Continue Plan of Care Treatment Plan: Bed Mobility, Education, Functional Activity Marco Antonio, Functional Strength, Group Therapy, Gait, Safety, Therapeutic Exercise, Transfers Treatment Duration: Sep 21, 2018 Frequency: At least 5 of 7 days/Wk (IRF) Estimated Hrs Per Day: 1.5 hours per day Patient and/or Family Agrees t: Yes Safety Risks/Education Patient Education: Transfer Techniques, Safety Issues Teaching Recipient: Patient Teaching Methods: Discussion Response to Teaching: Reinforcement Needed Discharge Recommendations Therapy D/C Recommendations: Occupational Therapy Outpatient (vs HHC), Physical Therapy Outpatient Time/GCodes Time In: 1200 Time Out: 1240 Total Billed Treatment Time: 40 Total Billed Treatment visit EVM 15 FA 25 BRANDON CERVANTES PT Sep 07, 2018 12:56
--- NOTE | 2018-09-07 13:27 | Consultation-Cardiology ---
HPI-Cardiology Cardiology Consultation: Date of Consultation 09/07/18 Date of Admission Attending Physician Haven Shaver DO Admitting Physician Luis Denis DO Consulting Physician Keyon AWAD MD HPI: Time Seen by a Provider: 13:27 Chief Complaint: Stroke This is a 58-year-old lady who has previous history of CAD and PCI to first diagonal artery in September 2013 for unstable angina. A Promus drug-eluting stent 2.25 x 16 mm was placed. Moderate disease in the LAD was negative by FFR. She presents with the complaint of strokelike symptoms. She was diagnosed with right basal ganglia stroke with left-sided symptoms. Bilateral carotid ultrasound is normal. Telemetry since admission did not show any arrhythmias. She has no cardiac symptoms. Review of Systems-Cardiology Review of Systems Constitutional: As described under HPI; No As described under HPI, No no symptoms reported, No chills, No fever, No lightheadedness Eyes: No As described under HPI, No no symptoms reported, No blindness, No blurred vision, No contact lenses, No drainage, No decreased acuity, No foreign body sensation, No pain, No vision change Ears/Nose/Throat: No As described under HPI, No no symptoms reported, No chronic hearing loss, No ear discharge, No ear pain, No nasal drainage, No ulcerations Respiratory: No no symptoms reported; As described under HPI; No As described under HPI, No cough, No orthopnea, No shortness of breath, No SOB with excertion Cardiovascular: No no symptoms reported; As described under HPI; No As described under HPI, No chest pain, No edema, No irregular heart rate, No lightheadedness, No palpitations Gastrointestinal: No no symptoms reported, No As described under HPI, No abdomen distended, No abdominal pain, No blood streaked bowels, No constipation, No diarrhea, No nausea, No vomiting, No stool coloration changes Genitourinary: No As described under HPI, No burning, No dysuria, No discharge, No frequency, No flank pain, No hematuria, No urgency : Yes : No Skin: No rash, No skin related problems, No ulcerations Psychiatric/Neurological: As described under HPI; No anxiety, No depression, No seizure, No focal weakness, No syncope Hematologic: No bleeding abnormalities All Other Systems Reviewed Negative Unless Noted: Yes IRV-Dofrto-Fwuqia Hx Patient Social History Marrital Status: 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 Family Medical History Family History: Arthritis Cataracts Diabetes mellitus Hypercholesterolemia Hypertension No Family History of: AIDS Abdominal aortic aneurysm Gustavo's disease Alcoholism Alzheimer's disease Aphasia Asthma Cancer of mouth Cardiovascular disease Colon cancer Completed stroke Congenital disease Congenital heart disease Coronary thrombosis Cystic fibrosis Deafness or hearing loss Dementia Drug abuse Dysphasia Fibrocystic disease of breast Gastroenteritis Glaucoma Headache disorder Infertility Kidney disease Myocardial infarction Neoplasm Not obtainable due to adoption Osteoporosis Parkinson's disease Prostate cancer Psychosocial problem Respiratory disorder Seizure disorder Severe allergy Thyroid disease Tuberculosis Visual disorder Allergies and Home Medications Allergies Coded Allergies: cefdinir (Verified Adverse Reaction, Mild, NAUSEA, yeast infection, 09/04/18) Cephalosporins (Verified Adverse Reaction, Unknown, yeast infections, 09/04/18) Home Medications Aspirin 81 Mg Tablet.dr, 81 MG PO DAILY, (Reported) Diphenhydramine HCl 25 Mg Capsule, 25 MG PO HS PRN for SLEEP, (Reported) Ibuprofen 200 Mg Tablet, 400 MG PO Q8H PRN for PAIN-MILD, (Reported) Multivitamin 1 Each Tablet, 1 TAB PO DAILY, (Reported) Patient Home Medication List Home Medication List Reviewed: Yes Physical Exam-Cardiology Physical Exam Vital Signs/I&O 09/07/18 09/07/18 12:33 13:00 Temp 98.4 Pulse 42 76 Resp 18 B/P (MAP) 135/84 Pulse Ox 99 O2 Delivery Room Air Capillary Refill : Constitutional: appears stated age, AAO x 3; No apparent distress; well- developed, well-nourished HEENT: PERRL; No normal ENT inspection, No TMs normal, No pharynx normal, No scleral icterus (R), No scleral icterus (L), No pale conjunctivae (R), No pale conjunctivae (L), No photophobia, No TM abnormal (R), No TM abnormal (L), No pharyngeal erythema, No tonsillar exudate, No other, No discharge, No EOMI; hearing is well preserved; No hard of hearing; oral hygience is good; No ulceration, No xanthelasmas are seen Neck: No non-tender, No full range of motion, No supple, No normal inspection, No carotid bruit, No limited range of motion, No lymphadenopathy (R), No lymphadenopathy (L), No tender lateral, No tender midline, No thyromegaly, No other; carotid pulses are 2 + bilaterally; No with good upstrokes Respiratory: No accessory muscle use, No respiratory distress, No chest tender, No chest expansion is symmetric; chest is bilaterally symmetric; No lungs clear to percussion; lungs clear to auscultation; No crackles, No rhonchi, No rales, No stridor, No wheezing, No pleural rub, No other Cardiovascular: regular rate-rhythm; No irregularly irregular, No extra beats, No parasternal heave is noted, No JVD, No edema, No bradycardia, No tachycardia, No point of maximal impulse, No cardiac thrills are palpable; S1 and S2; No gallop/S3, No gallop/S4, No diastolic murmur, No systolic murmur, No friction rub, No click, No other Gastrointestinal: No tender, No soft, No round, No distended, No pulsatile mass, No organomegaly, No guarding, No rebound, No tenderness, No hernia, No mass, No audible bowel sounds, No abnormal bowel sounds, No abdominal bruits, No spleenomegaly, No other Rectal: deferred Extremities: No normal range of motion, No non-tender, No normal inspection, No pedal edema, No calf tenderness, No normal capillary refill, No pelvis stable, No calf tenderness, No inflammation, No pedal edema, No slow capillary refill, No swelling, No other, No abrasion, No clubbing, No cyanosis, No ecchymosis, No laceration, No no lower extremity edema bilateral, No significant edema, No tenderness, No wound Neurologic/Psychiatric: alert, normal mood/affect, oriented x 3 Skin: No normal color, No warm/dry, No cyanosis, No cool, No diaphoresis, No damp, No ecchymosis, No jaundice, No mottled, No pallor, No rash, No tattoos/piercings, No ulcerations, No rash on exposed areas, No ulcerations on exposed areas, No other A/P-Cardiology Assessment/Admission Diagnosis Right basal ganglia stroke, cryptogenic stroke, History of CAD/PCI. Plan Negative workup for etiology of stroke. Stroke has been confirmed on MRI. Bilateral carotid ultrasound is negative. Telemetry negative for any arrhythmias. Echocardiogram was negative for any intracardiac shunting. Diagnosis is likely cryptogenic stroke. Long-term surveillance for atrial fibrillation is recommended with an implantable loop recorder. I have discussed at length with the patient and informed consent taken. Patient is on Plavix for CAD. Will also require statin therapy. Thank you for your consultation. Please call me if you have any questions. Joe Awad MD, FACP, FACC, [facility] [place], FHRS, CCDS Interventional Cardiology Cardiac Electrophysiology Vascular Medicine and Endovascular Interventions Clinical Quality Measures DVT/VTE Risk/Contraindication: Risk Factor Score Per Nursin RFS Level Per Nursing on Admit: 4+=Very High Keyon AWAD MD Sep 07, 2018 13:27
--- OUTSIDE RECORDS SUMMARY | 2018-09-07 13:43 | XMS REPORT | Continuity of Care Document ---
Author Organization Unknown Address Unknown Allergies Active Description Code Type Severity Reaction Onset Reported/Identified Relationship to Patient Clinical Status Yes CEFDINIR CEFDINIR UNKNOWN Yes CEFDINIR UNKNOWN UNKNOWN Yes cefdinir [id number] Drug Allergy Mild NAUSEA 09/17/2013 Yes cefdinir [id number] Drug Allergy Mild NAUSEA, yeast i 09/04/2018 Yes Cephalosporins [id number] Drug Allergy Unknown N/A 09/04/2018 Yes Cephalosporins [id number] Drug Allergy Unknown yeast infection 09/04/2018 Medications Medication Packaging Start Date Stop Date Route Dosage Sig MECLIZINE TAB 25 MG (ANTIVERT) MG 12/29/2016 12/29/2016 PRN ONCE DIAZEPAM SYRINGE INJ 5 MG/CC (VALIUM SYRINGE) MG 12/29/2016 12/29/2016 [id number] Problems Date Dx Coded Attending Type Code Diagnosis Diagnosed By 09/18/2013 BLADIMIR SANDOVAL, Keyon HARRY Ot 250.00 09/18/2013 Keyon GARRISON MD Ot 305.1 09/18/2013 Keyon GARRISON MD Ot 411.1 09/18/2013 Keyon GARRISON MD Ot 414.01 09/18/2013 Keyon GARRISON MD Ot V58.69 01/02/2014 PAULINE DOUGLASS MD, FACC FACP CCDS Ot 250.00 DIAB FLORES WO COMPL, TYPE II OR UNSPEC TY 01/02/2014 PAULINE DOUGLASS MD, FACC FACP CCDS Ot 272.4 HYPERLIPIDEMIA NEC/NOS 01/02/2014 PAULINE DOUGLASS MD, FACC FACP CCDS Ot 305.1 TOBACCO USE DISORDER 01/02/2014 PAULINE DOUGLASS MD, FACC FACP CCDS Ot 401.9 HYPERTENSION NOS 01/02/2014 EVONNE SANDOVAL FACC, PAULINE FACP CCDS Ot 414.01 CORONARY ATHEROSCLEROSIS OF [place] CORON 01/02/2014 EVONNE MD FACC, ALI FACP CCDS Ot 530.81 ESOPHAGEAL REFLUX 01/02/2014 EVONNE SANDOVAL [facility], PAULINE FACP CCDS Ot 782.3 EDEMA 01/02/2014 EVONNE SANDOVAL FACC, PAULINE FACP CCDS Ot 786.59 CHEST PAIN NEC 01/02/2014 EVONNE SANDOVAL FACC, [facility] FACP CCDS Ot V45.82 PERCUTANEOUS TRANSLUM CORON ANGIOPLASTY 01/02/2014 EVON[facility]ANDOVAL [facility] Ot V58.69 OT MED,LT,CURRENT USE 01/30/2014 ABDULKADIRYAN BERRY Milvia [employer]URE [employer]INEER Ot 789.03 01/30/2014 MARILEE BERRY L [employer]ITY [employer]STRU[employer]URE ENGINEER Ot V45.89 11/06/2016 Yesica Dietricha A 783.21 LOSS OF WEIGHT 11/06/2016 Karlo Melva A R63.4 ABNORMAL WEIGHT LOSS 11/06/2016 Melva Dietrich W 250.80 DIABETES MELLITUS WITH OTHER SPECIFIED MANIFESTATIONS, TYPE II OR UNSPECIFIED TYPE, NOT STATED UNCONTROLLED 11/06/2016 Karlo Melva W 272.4 OTHER AND UNSPECIFIED HYPERLIPIDEMIA 11/06/2016 Karlo, Melva A 783.21 LOSS OF WEIGHT 11/06/2016 Karlo, Melva W E11.65 TYPE 2 DIABETES MELLITUS WITH HYPERGLYCEMIA 11/06/2016 Karlo Melva W E78.4 OTHER HYPERLIPIDEMIA 11/06/2016 Yesica Dietricha A R63.4 ABNORMAL WEIGHT LOSS 11/06/2016 Yesica Dietricha W 250.80 DIABETES MELLITUS WITH OTHER SPECIFIED MANIFESTATIONS, TYPE II OR UNSPECIFIED TYPE, NOT STATED UNCONTROLLED 11/06/2016 Karlo Melva W 272.4 OTHER AND UNSPECIFIED HYPERLIPIDEMIA 11/06/2016 Yesica Dietricha A 783.21 LOSS OF WEIGHT 11/06/2016 Karlo Melva W E11.65 TYPE 2 DIABETES MELLITUS WITH HYPERGLYCEMIA 11/06/2016 Karlo, Melva W E78.4 OTHER HYPERLIPIDEMIA 11/06/2016 Yesica Dietricha A R63.4 ABNORMAL WEIGHT LOSS 12/29/2016 Mikel Teixeira 386.12 VESTIBULAR NEURONITIS 12/29/2016 Mikel Teixeira 599.0 URINARY TRACT INFECTION, SITE NOT SPECIFIED 12/29/2016 Mikel Teixeira H81.23 VESTIBULAR NEURONITIS, BILATERAL 12/29/2016 Howayek, Mikel W N39.0 URINARY TRACT INFECTION, SITE NOT SPECIFIED 03/21/2017 [place] GERMAN W 338.11 ACUTE PAIN DUE TO TRAUMA 03/21/2017 [place] EGRMAN W 719.06 EFFUSION OF LOWER LEG JOINT 03/21/2017 [place] GERMAN A 719.46 PAIN IN JOINT INVOLVING LOWER LEG 03/21/2017 [place] GERMAN W G89.11 ACUTE PAIN DUE TO TRAUMA 03/21/2017 [place] GERMAN M25.461 EFFUSION, RIGHT KNEE 03/21/2017 [place] GERMAN M25.561 PAIN IN RIGHT KNEE 09/04/2018 BERRY HUNT [employer] ENGINEER Ot 789.03 ABDOMINAL PAIN, RIGHT LOWER QUADRANT 09/04/2018 BERRY HUNT [employer]STRU[employer] ENGINEER Ot V45.89 POSTSURGICAL STATES NEC Procedures There is no data. Results Test Result Range Microalbumin - 11/06/16 07:56 Microalb 23.0 mg/L 0.0-20.0 Comprehensive Metabolic Panel - 12/29/16 18:07 Albumin 4.1 g/dL 3.6-5.1 ALP 99 U/L 35-130 ALT 7 U/L 6-45 Anion Gap 14 6-14 AST 9 U/L 2-40 BUN 16 mg/dL 5-25 Calcium 9.5 mg/dL 8.3-10.4 Chloride 101 mmol/L 95-114 CO2 25 mEq/L 22-33 Creat 0.88 mg/dL 0.50-1.50 eGFR 67 mL/min/1.73m2 >59 Globulin 3.5 g/dL 2.3-3.5 Glucose 314 mg/dL 70-110 Osmo 293 280-295 Potassium 4.0 mmol/L 3.5-5.3 Sodium 136 mmol/L 134-148 TBil 0.4 mg/dL 0.2-1.2 TP 7.6 g/dL 6.0-8.3 Urine Culture - 12/29/16 18:07 PRELIM CULTURE RESULTS >100,000 Gram Negative COLLIN / ID to Follow MEDIA PLATED Setup at 18:40 on 12/29/2016 CULTURE SOURCE void Sensi - 12/29/16 18:07 FINAL CULTURE RESULTS Klebsiella pneumoniae (Isolate 1) Ampicillin/Sulbactam <=8/4 Ampicillin >16 Amoxicillin/K Clavulanate <=8/4 Ceftriaxone <=8 Ciprofloxacin <=1 Nitrofurantoin <=32 Gentamicin <=4 Levofloxacin <=2 Trimethoprim/ Sulfamethoxazole <=2/38 Tetracycline <=4 Amikacin <=16 Aztreonam <=8 Ceftazidime <=1 Ceftazidime/K Clavulanate >2 Cephalothin <=8 Cefotaxime <=2 Cefotaxime/K Clavulanate <=0.5 Cefoxitin <=8 Cefazolin <=8 Cefepime <=8 Cefuroxime <=4 Ertapenem <=1 Imipenem <=4 Meropenem <=4 Piperacillin/Tazobactam <=16 Piperacillin <=16 Tigecycline <=2 Tobramycin <=4 Complete blood count (CBC) with automated white blood cell (WBC) differential - 09/04/18 05:35 Blood leukocytes automated count (number/volume) 11.3 10*3/uL 4.3-11.0 Blood erythrocytes automated count (number/volume) 5.49 10*6/uL 4.35-5.85 Venous blood hemoglobin measurement (mass/volume) 16.4 g/dL 11.5-16.0 Blood hematocrit (volume fraction) 47 % 35-52 Automated erythrocyte mean corpuscular volume 85 [foz_us] 80-99 Automated erythrocyte mean corpuscular hemoglobin (mass per erythrocyte) 30 pg 25-34 Automated erythrocyte mean corpuscular hemoglobin concentration measurement (mass/volume) 35 g/dL 32-36 Automated erythrocyte distribution width ratio 13.5 % 10.0- 14.5 Automated blood platelet count (count/volume) 264 10*3/uL 130-400 Automated blood platelet mean volume measurement 10.7 [foz_us] 7.4-10.4 Automated blood neutrophils/100 leukocytes 57 % 42-75 Automated blood lymphocytes/100 leukocytes 33 % 12-44 Blood monocytes/100 leukocytes 8 % 0-12 Automated blood eosinophils/100 leukocytes 2 % 0-10 Automated blood basophils/100 leukocytes 1 % 0-10 Blood neutrophils automated count (number/volume) 6.4 10*3 1.8-7.8 Blood lymphocytes automated count (number/volume) 3.7 10*3 1.0-4.0 Blood monocytes automated count (number/volume) 0.9 10*3 0.0- 1.0 Automated eosinophil count 0.2 10*3/uL 0.0-0.3 Automated blood basophil count (count/volume) 0.1 10*3/uL 0.0-0.1 PT panel in platelet poor plasma by coagulation assay - 09/04/18 05:35 Prothrombin time (PT) in platelet poor plasma by coagulation assay 12.4 s 12.2-14.7 INR in platelet poor plasma or blood by coagulation assay 0.9 0.8-1.4 Activated partial thromboplastin time (aPTT) in platelet poor plasma bycoagulation assay - 09/04/18 05:35 Activated partial thromboplastin time (aPTT) in platelet poor plasma bycoagulation assay 30 s 24-35 Fibrin D-dimer FEU measurement in platelet poor plasma (mass/volume) - 09/04/18 05:35 Fibrin D-dimer FEU measurement in platelet poor plasma (mass/volume) 0.38 ug/mL 0.00-0.49 Comprehensive metabolic panel - 09/04/18 05:35 Serum or plasma sodium measurement (moles/volume) 134 mmol/L 135-145 Serum or plasma potassium measurement (moles/volume) 5.6 mmol/L 3.6-5.0 Serum or plasma chloride measurement (moles/volume) 103 mmol/L 98-107 Carbon dioxide 20 mmol/L 21-32 Serum or plasma anion gap determination (moles/volume) 11 mmol/L 5-14 Serum or plasma urea nitrogen measurement (mass/volume) 12 mg/dL 7-18 Serum or plasma creatinine measurement (mass/volume) 0.83 mg/dL 0.60-1.30 Serum or plasma urea nitrogen/creatinine mass ratio 14 NRG Serum or plasma creatinine measurement with calculation of estimated glomerular filtration rate > NRG Serum or plasma glucose measurement (mass/volume) 364 mg/dL 70-105 Serum or plasma calcium measurement (mass/volume) 9.5 mg/dL 8.5-10.1 Serum or plasma total bilirubin measurement (mass/volume) 0.4 mg/dL 0.1-1.0 Serum or plasma alkaline phosphatase measurement (enzymatic activity/volume) 99 U/L 40-136 Serum or plasma aspartate aminotransferase measurement (enzymatic activity/volume) 20 U/L 5-34 Serum or plasma alanine aminotransferase measurement (enzymatic activity/volume) 12 U/L 0-55 Serum or plasma protein measurement (mass/volume) 7.1 g/dL 6.4-8.2 Serum or plasma albumin measurement (mass/volume) 4.1 g/dL 3.2-4.5 CALCIUM CORRECTED 9.4 mg/dL 8.5-10.1 Serum or plasma troponin i.cardiac measurement (mass/volume) - 09/04/18 05:35 Serum or plasma troponin i.cardiac measurement (mass/volume) < ng/mL <0.028 Hemoglobin A1c - 09/04/18 05:35 Blood hemoglobin A1C measurement (mass/volume) 12.2 % 4.0- 5.6 MEAN BLOOD GLUCOSE 303 % <=126 Capillary blood glucose measurement by glucometer (mass/volume) - 09/04/18 05:50 Capillary blood glucose measurement by glucometer (mass/volume) 119 mg/dL 70-110 Complete urinalysis with reflex to culture - 09/04/18 06:30 Urine color determination YELLOW NRG Urine clarity determination CLEAR NRG Urine pH measurement by test strip 6.5 5-9 Specific gravity of urine by test strip 1.010 1.016-1.022 Urine protein assay by test strip, semi-quantitative NEGATIVE NEGATIVE Urine glucose detection by automated test strip 4+ NEGATIVE Erythrocytes detection in urine sediment by light microscopy NEGATIVE NEGATIVE Urine ketones detection by automated test strip NEGATIVE NEGATIVE Urine nitrite detection by test strip NEGATIVE NEGATIVE Urine total bilirubin detection by test strip NEGATIVE NEGATIVE Urine urobilinogen measurement by automated test strip (mass/volume) NORMAL NORMAL Urine leukocyte esterase detection by dipstick NEGATIVE NEGATIVE Automated urine sediment erythrocyte count by microscopy (number/high power field) [HPF] NRG Automated urine sediment leukocyte count by microscopy (number/high power field) NONE NRG Bacteria detection in urine sediment by light microscopy TRACE NRG Squamous epithelial cells detection in urine sediment by light microscopy 2-5 NRG Crystals detection in urine sediment by light microscopy NONE NRG Casts detection in urine sediment by light microscopy NONE NRG Mucus detection in urine sediment by light microscopy NEGATIVE NRG Complete urinalysis with reflex to culture NO NRG Capillary blood glucose measurement by glucometer (mass/volume) - 09/04/18 07:37 Capillary blood glucose measurement by glucometer (mass/volume) 319 mg/dL 70-110 Capillary blood glucose measurement by glucometer (mass/volume) - 09/04/18 09:06 Capillary blood glucose measurement by glucometer (mass/volume) 293 mg/dL 70-110 Capillary blood glucose measurement by glucometer (mass/volume) - 09/04/18 12:27 Capillary blood glucose measurement by glucometer (mass/volume) 270 mg/dL 70-110 Capillary blood glucose measurement by glucometer (mass/volume) - 09/04/18 16:51 Capillary blood glucose measurement by glucometer (mass/volume) 224 mg/dL 70-110 Methicillin resistant Staphylococcus aureus (MRSA) screening culture - 09/04/18 18:35 Methicillin resistant Staphylococcus aureus (MRSA) screening culture NEG NRG Capillary blood glucose measurement by glucometer (mass/volume) - 09/04/18 21:13 Capillary blood glucose measurement by glucometer (mass/volume) 213 mg/dL 70-110 Complete blood count (CBC) with automated white blood cell (WBC) differential - 09/05/18 02:51 Blood leukocytes automated count (number/volume) 7.3 10*3/uL 4.3-11.0 Blood erythrocytes automated count (number/volume) 5.04 10*6/uL 4.35-5.85 Venous blood hemoglobin measurement (mass/volume) 14.8 g/dL 11.5-16.0 Blood hematocrit (volume fraction) 44 % 35-52 Automated erythrocyte mean corpuscular volume 87 [foz_us] 80-99 Automated erythrocyte mean corpuscular hemoglobin (mass per erythrocyte) 29 pg 25-34 Automated erythrocyte mean corpuscular hemoglobin concentration measurement (mass/volume) 34 g/dL 32-36 Automated erythrocyte distribution width ratio 13.5 % 10.0- 14.5 Automated blood platelet count (count/volume) 238 10*3/uL 130-400 Automated blood platelet mean volume measurement 10.8 [foz_us] 7.4-10.4 Automated blood neutrophils/100 leukocytes 50 % 42-75 Automated blood lymphocytes/100 leukocytes 40 % 12-44 Blood monocytes/100 leukocytes 8 % 0-12 Automated blood eosinophils/100 leukocytes 2 % 0-10 Automated blood basophils/100 leukocytes 1 % 0-10 Blood neutrophils automated count (number/volume) 3.6 10*3 1.8-7.8 Blood lymphocytes automated count (number/volume) 2.9 10*3 1.0-4.0 Blood monocytes automated count (number/volume) 0.6 10*3 0.0- 1.0 Automated eosinophil count 0.2 10*3/uL 0.0-0.3 Automated blood basophil count (count/volume) 0.1 10*3/uL 0.0-0.1 Whole blood basic metabolic panel - 09/05/18 02:51 Serum or plasma sodium measurement (moles/volume) 139 mmol/L 135-145 Serum or plasma potassium measurement (moles/volume) 3.8 mmol/L 3.6-5.0 Serum or plasma chloride measurement (moles/volume) 106 mmol/L 98-107 Carbon dioxide 22 mmol/L 21-32 Serum or plasma anion gap determination (moles/volume) 11 mmol/L 5-14 Serum or plasma urea nitrogen measurement (mass/volume) 13 mg/dL 7-18 Serum or plasma creatinine measurement (mass/volume) 0.76 mg/dL 0.60-1.30 Serum or plasma urea nitrogen/creatinine mass ratio 17 NRG Serum or plasma creatinine measurement with calculation of estimated glomerular filtration rate > NRG Serum or plasma glucose measurement (mass/volume) 281 mg/dL 70-105 Serum or plasma calcium measurement (mass/volume) 8.9 mg/dL 8.5-10.1 Serum or plasma phosphate measurement (mass/volume) - 09/05/18 02:51 Serum or plasma phosphate measurement (mass/volume) 3.9 mg/dL 2.3-4.7 Magnesium - 09/05/18 02:51 Magnesium 1.7 mg/dL 1.8-2.4 Lipid 1996 panel - 09/05/18 02:51 Serum or plasma triglyceride measurement (mass/volume) 104 mg/dL <150 Serum or plasma cholesterol measurement (mass/volume) 151 mg/dL < 200 Serum or plasma cholesterol in HDL measurement (mass/volume) 45 mg/dL 40-60 Cholesterol in LDL [mass/volume] in serum or plasma by direct assay 97 mg/dL 1-129 Serum or plasma cholesterol in VLDL measurement (mass/volume) 21 mg/dL 5-40 Capillary blood glucose measurement by glucometer (mass/volume) - 09/05/18 11:11 Capillary blood glucose measurement by glucometer (mass/volume) 408 mg/dL 70-110 Capillary blood glucose measurement by glucometer (mass/volume) - 09/05/18 16:02 Capillary blood glucose measurement by glucometer (mass/volume) 331 mg/dL 70-110 Capillary blood glucose measurement by glucometer (mass/volume) - 09/05/18 16:23 Capillary blood glucose measurement by glucometer (mass/volume) 300 mg/dL 70-110 Capillary blood glucose measurement by glucometer (mass/volume) - 09/05/18 20:46 Capillary blood glucose measurement by glucometer (mass/volume) 328 mg/dL 70-110 Capillary blood glucose measurement by glucometer (mass/volume) - 09/06/18 05:35 Capillary blood glucose measurement by glucometer (mass/volume) 293 mg/dL 70-110 Capillary blood glucose measurement by glucometer (mass/volume) - 09/06/18 11:05 Capillary blood glucose measurement by glucometer (mass/volume) 296 mg/dL 70-110 Capillary blood glucose measurement by glucometer (mass/volume) - 09/06/18 16:14 Capillary blood glucose measurement by glucometer (mass/volume) 267 mg/dL 70-110 Capillary blood glucose measurement by glucometer (mass/volume) - 09/06/18 20:32 Capillary blood glucose measurement by glucometer (mass/volume) 266 mg/dL 70-110 Capillary blood glucose measurement by glucometer (mass/volume) - 09/07/18 05:36 Capillary blood glucose measurement by glucometer (mass/volume) 299 mg/dL 70-110 Capillary blood glucose measurement by glucometer (mass/volume) - 09/07/18 11:23 Capillary blood glucose measurement by glucometer (mass/volume) 293 mg/dL 70-110 Encounters ACCT No. Visit Date/Time Discharge Status Pt. Type Provider Facility Loc./Unit Complaint [id number] 01/08/2014 12:10:00 01/08/2014 23:59:59 CLS Outpatient BERRY HUNT [facility] RAD RT GROIN PAIN,SWELLING [id number] 01/02/2014 12:36:00 01/02/2014 19:40:00 DIS Outpatient EVONNE SANDOVAL FACC, PAULINE WYNN CCDS [facility] CATH CP,CAD,DM [id number] 09/17/2013 13:45:00 09/18/2013 15:17:00 DIS Outpatient Keyon GARRISON MD [facility] [id number] 09/04/2018 15:44:00 ACT Inpatient SAMMY SANDOVAL, ANGELIKA Ta [facility] 4TH TIA, HYPERGLYCEMIA [id number] 04/03/2018 15:50:00 04/03/2018 23:59:59 C[id number] 01/08/2014 12:11:30 ACT Document Registration [id number] 03/21/2017 11:28:00 03/21/2017 12:56:00 [id number]2016 17:45:00 12/29/2016 19[facility]21:00 [id number] 12/11/2016 09:46:00 12/11/2016 23:59:00 DIS Outpatient SELF, PHY [id number] 11/06/2016 07:52:00 11/06/2016 23:59:00 DIS Outpatient Melva Dietrich [id number] 12/02/2015 16:15:00 12/02/2015 23:59:00 [place] [id number] 12/29/2016 18:08:51 Document Registration
[2018-09-07] MEDS ORDERED: MELATONIN 3 MG TABLET PO PRN (14:00)
[2018-09-07] MEDS ORDERED: BENZONATATE 100 MG (TESSALON) CAPSULE PO PRN (14:00)
[2018-09-07] MEDS ORDERED: ONDANSETRON 4 MG/2 ML (SDV) Z0FRAN IV PRN (14:00)
[2018-09-07] MEDS ORDERED: MILK OF MAGNESIA 400 MG/5 ML 30 ML UDC PO PRN (14:00)
[2018-09-07] MEDS ORDERED: NITROGLYCERIN 2% OINT 1 GM UNIT DOSE PACKET TOP PRN (14:00)
[2018-09-07] MEDS ORDERED: CATHETER FLUSH 10 ML SYR IV PRN (14:00)
[2018-09-07] MEDS ORDERED: ANTACID SUSP 30 ML UDC (MYLANTA) PO PRN (14:00)
--- NOTE | 2018-09-07 14:53 | Occupational Therapy Eval ---
OT Evaluation-General/PLF Medical Diagnosis Admission Date Sep 07, 2018 at 12:00 Medical Diagnosis: CVA Onset Date: Sep 07, 2018 Therapy Diagnosis Therapy Diagnosis: decreased strength and self care skills Height/Weight Height (Feet): 5 Height (Inches): 8.00 Weight (Pounds): 166 Weight (Ounces): 0.0 Precautions Precautions/Isolations: Fall Prevention, Standard Precautions Referral Physician: Sivakumar Medical History Pertinent Medical History: CAD, DM, GERD, HTN, Smoking Additional Medical History gallbladder disease, UTI-chronic Social History Home: Single Level Current Living Status: Spouse (her daughter and grandchildren live with her as well) ADL-Prior Level of Function Therapy Code Descriptions/Definitions Functional [place] Measure: 0=Not Assessed/NA 4=Minimal Assistance 1=Total Assistance 5=Supervision or Setup 2=Maximal Assistance 6=Modified [place] 3=Moderate Assistance 7=Complete [place] Therapy Quality Codes: 6 Independent with activity with or without an assistive device 5 Patient requires set up or clean up by helper. Patient completes activity by themselves 4 Supervision or touching assist (CGA). [place] provide cues , steadying assist 3 The helper provides less than half the effort to complete the activity 2 The helper provides more than half the effort to complete the activity 1 Dependent. The helper does all the effort to complete an activity 7 Patient refused to complete or attempt activity 9 The patient did not perform the activity before the current illness or injury 88 Not attempted due to Medical conditions or safety concerns Functional Abilities and Goals: Independent: Patient completed the activities by him/herself, with or without an assistive device, with no assistance from a helper. Needed Some Help: Patient needed partial assistance from another person to complete activities. Dependent: A helper completed the activities for the patient. Unknown: Not Applicable: ADL PLOF Comments Pt reports being independent with all self care and mobility prior to admission. 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 No c/o pain. Mental Status/Objective Patient Orientation: Person, Place, Situation Current Glasses/Contacts: Yes (reading glasses) Hearing Aids: No Dentures/Partials: No Hand Dominance: Right Upper Extremity ROM Grossly WFL Upper Extremity Coordination Decreased left UE Upper Extremity Sensation Pt reports numbness in 4th and 5th digits on left hand, but states it is getting better. Upper Extremity Strength right UE WFL Left UE grossly 4-/5 ADL-Treatment ADL-Current Pt sit to stand with CGA. Gait to restroom with FWW. Transfer to toilet with CGA for safety using grab bar for balance. Pt able to complete toileting hygiene, but requires CGA for balance during clothing management. Transfer to walk in shower with min assist for safety. [place] clothing with CGA for balance. Bathing completed using hand held shower. Upper body bathing completed with SBA. Pt requires min assist for balance during standing to wash buttocks. Don pullover shirt with SBA. Pt donned underwear and pants with CGA for standing balance during pant hike. Dons bilateral socks with SBA. Pt stood at sink to brush teeth with SBA. Combed hair with SBA. Eating (FIM): 5 (pt reports feeding herself after set up) Eating (QC): 5 Grooming (FIM): 5 Oral Hygiene (QC): 4 Bathing (FIM): 4 Shower/Bathe Self (QC): 4 Upper Body Dressing (FIM): 5 Upper Body Dressing (QC): 4 Lower Body Dressing (FIM): 4 (CGA) Lower Body Dressing (QC): 4 On/Off Footwear (QC): 4 Toileting (FIM): 4 (CGA) Toileting Hygiene (QC): 4 Toilet/Commode Transfer (FIM): 4 (CGA) Shower Transfer (FIM): 4 Other Treatments Gait to therapy gym with FWW. Arm arc with left UE to increase ROM and activity tolerance for functional tasks. Pt completed resistance pegs activity with left hand to increase coordination/manipulation skills. Pt able to place pegs into pegboard with increased time and effort. Pt performed bilateral UE exercises to increase ROM and strength for ADLs and transfers. Pt performed shoulder flexion, forward press, and biceps curls, and wrist flex/ext x10 reps with dowel tray. Pt completed left hand color finisher exercises x20 reps with moderate resistance therapy foam to increase color finisher strength. Pt returned to room, sitting in chair with needs met after session. Education OT Patient Education: Rehab process Teaching Recipient: Patient Teaching Methods: Discussion Response to Teaching: Verbalize Understanding OT Short Term Goals Short Term Goals Time Frame: Sep 14, 2018 Bathing(FIM): 5 Lower Body Dressing(FIM): 5 Toileting(FIM): 5 Toilet/Commode Transfer(FIM): 5 Shower Transfer(FIM): 5 Additional Short Term Goals: 1-Demonstrate ADL Tasks, 2-Verbalize Understanding, 3-ImproveStrength/[place] 1=Demonstrate adherence to instructed precautions during ADL tasks. 2=Patient will verbalize/demonstrate understanding of assistive devices/modifi cations for ADL. 3=Patient will improve strength/tolerance for activity to enable patient to perform ADL's. OT Oval Or Circular Glass Cutter Goals Correction Goals Time Frame: Sep 28, 2018 Eating (FIM): 6 Eating (QC): 6 Groomin Oral Hygiene (QC): 6 Bathing(FIM): 6 Shower/Bathe Self (QC): 6 Upper Body Dressing(FIM): 6 Upper Body Dressing (QC): 6 Lower Body Dressing(FIM): 6 Lower Body Dressing (QC): 6 On/Off Footwear (QC): 6 Toileting(FIM): 6 Toileting Hygiene (QC): 6 Toilet/Commode Transfer(FIM): 6 Toilet/Commode Transfer (QC): 6 Shower Transfer(FIM): 6 Additional Goals: 1-Demonstrate ADL Tasks, 2-Verbalize Understanding, 3- ImproveStrength/[place] 1=Demonstrate adherence to instructed precautions during ADL tasks. 2=Patient will verbalize/demonstrate understanding of assistive devices/modifications for ADL. 3=Patient will improve strength/tolerance for activity to enable patient to perform ADL's. Goals established to promote increased independence and allow safe discharge. OT Education/Plan Problem List/Assessment Assessment: Decreased Activ Tolerance, Decreased UE Strength, Dependent Transfers, Impaired Coordination, Impaired I ADL's, Impaired Self-Care Skills Pt demonstrates decreased left side strength/coordination, decreased ADL functioning, mobility, and activity tolerance. Pt to benefit from skilled OT intervention for ADL training, transfers, strengthening, and safety education to increase level of independence and allow safe discharge home. Discharge Recommendations Plan/Recommendations: Continue POC Treatment Plan/Plan of Care Treatment,Training & Education: Yes Patient would benefit from OT for education, treatment and training to promote independence in ADL's, mobility, safety and/or upper extremity function for ADL's. Plan of Care: ADL Retraining, Functional Mobility, Group Exercise/Act as Ind, UE Funct Exercise/Act, UE Neuromus Re-Ed/Coord Treatment Duration: Sep 28, 2018 Frequency: At least 5 of 7 days/Wk (IRF) Estimated Hrs Per Day: 1.5 hours per day Agreement: Yes Rehab Potential: Good Time/GCodes Start Time: 13:00 Stop Time: 14:30 Total Time Billed (hr/min): 90 Billed Treatment Time 1 visit, EVM(15minutes), ADLx3(45minutes), NMx2(30minutes) SOFÍA ABBASI OT Sep 07, 2018 14:53
--- NOTE | 2018-09-07 15:39 | Physical Therapy Daily Note ---
PT Daily Note-Current Subjective Agrees to PT. no complaints. Pt expressed that she enjoyed being outside. Transfers Therapy Code Descriptions/Definitions Functional [place] Measure: 0=Not Assessed/NA 4=Minimal Assistance 1=Total Assistance 5=Supervision or Setup 2=Maximal Assistance 6=Modified [place] 3=Moderate Assistance 7=Complete [place] Therapy Quality Codes: 6 Independent with activity with or without an assistive device 5 Patient requires set up or clean up by helper. Patient completes activity by themselves 4 Supervision or touching assist (CGA). [place] provide cues , steadying assist 3 The helper provides less than half the effort to complete the activity 2 The helper provides more than half the effort to complete the activity 1 Dependent. The helper does all the effort to complete an activity 7 Patient refused to complete or attempt activity 9 The patient did not perform the activity before the current illness or i njury 88 Not attempted due to Medical conditions or safety concerns Sit to Stand (QC): 4 (min assist from several surfaces to include recliner, wc and park bench) Gait Training Gait (FIM): 4 Distance: 150 ft x 5 Gait Assistive Device: FWW Pt walked on indoor surfaces, outdoor sidewalk surfaces; slopes and up/down curb step with FWW with min-CGA. As she fatigued, she demonstrated increased difficulty with foot clearance left and decreased coordinated movement of her left foot and some dyscoordination with her walker. Assessment Current Status: Good Progress Fatigued with walking and her gait pattern of decreased safety became more pronounced. She follows cues well. PT Short Term Goals Short Term Goals Time Frame: Sep 14, 2018 Gait (FIM): 5 PT Correction Goals Correction Goals PT Correction Goals Time Frame: Sep 21, 2018 Transfers (B,C,W/C) (FIM): 7 Sit to Lying (QC): 6 Lying-Sitting on Side/Bed(QC): 6 Sit to Stand (QC): 6 Roll Left to Right (QC): 6 Chair/Myn-qz-Rggif Xfer(QC): 6 Car Transfer (QC): 6 Does the Patient Walk: Yes Gait (FIM): 6 Gait distance (FIM): 3=150 ft Walk 10 feet (QC): 6 Walk 10ft-Uneven Surface(QC): 6 Walk 50ft with 2 Turns (QC): 6 Walk 150 ft (QC): 6 Gait Assistive Device: FWW Does the Pt use WC or Scooter?: No Stairs (FIM): 6 1 Step (curb) (QC): 6 4 Steps (QC): 6 12 Steps (QC): 6 Picking up an Object (QC): 4 PT Plan Problem List Problem List: Activity Tolerance, Functional Strength, Safety, Balance, Gait, Transfer Treatment/Plan Treatment Plan: Continue Plan of Care Treatment Plan: Bed Mobility, Education, Functional Activity Marco Antonio, Functional Strength, Group Therapy, Gait, Safety, Therapeutic Exercise, Transfers Treatment Duration: Sep 21, 2018 Frequency: At least 5 of 7 days/Wk (IRF) Estimated Hrs Per Day: 1.5 hours per day Patient and/or Family Agrees t: Yes Safety Risks/Education Patient Education: Transfer Techniques Teaching Recipient: Patient Teaching Methods: Discussion Response to Teaching: Reinforcement Needed Time/GCodes Time In: 1430 Time Out: 1524 Total Billed Treatment Time: 54 Total Billed Treatment visit GT 54 BRANDON CERVANTES PT Sep 07, 2018 15:39
[2018-09-07] MEDS: inSUlin ASPART (NovoLOG) 1 UNIT/0.01 ML (CHARGE PER UNIT) SC SCH ×2 (16:00→21:43)
[2018-09-07 16:33] VITALS: BP 129/84
--- NOTE | 2018-09-07 19:24 | NUR ---
bedside report received from IVANNA ALMONTE, assume care of pt
[2018-09-07] MEDS: ATORVASTATIN 80 MG (LIPITOR) TABLET PO SCH (20:33)
[2018-09-07] MEDS: PREGABALIN 50 MG (LYRICA) CAP PO SCH (20:33)
[2018-09-07] MEDS ORDERED: PREGABALIN 50 MG (LYRICA) CAP PO SCH (21:00)
--- NOTE | 2018-09-07 21:00 | NUR ---
assessments & interventions completed, see assessments & interventions, up with stand by assist & walker, ate dinner late will check fsbs at 2130
--- NOTE | 2018-09-07 21:43 | NUR ---
fsbs 323 NovoLog 7 units given
[2018-09-08] MEDS: ACETAMINOPHEN 325 MG TABLET PO PRN ×2 (05:18→21:49)
--- NOTE | 2018-09-08 05:18 | NUR ---
c/o pain in legs, level 3/10 on numeric scale given Tylenol 650mg
[2018-09-08] MEDS: inSUlin ASPART (NovoLOG) 1 UNIT/0.01 ML (CHARGE PER UNIT) SC SCH ×7 (06:00→20:47)
--- NOTE | 2018-09-08 06:00 | NUR ---
resting quietly in bed, pain level 0/10 on flacc scale
[2018-09-08 06:02] LABS: BASOPHILS # (AUTO) 0.1 10^3/uL (0.0-0.1); BASOPHILS % (AUTO) 1 % (0-10); EOSINOPHILS # (AUTO) 0.2 10^3/uL (0.0-0.3); EOSINOPHILS % (AUTO) 3 % (0-10); HEMATOCRIT 44 % (35-52); HEMOGLOBIN 14.9 G/DL (11.5-16.0); LYMPHOCYTES # (AUTO) 2.9 X 10^3 (1.0-4.0); LYMPHOCYTES % (AUTO) 38 % (12-44); MEAN CORPUSCULAR HEMOGLOBIN 30 PG (25-34); MEAN CORPUSCULAR HGB CONC 34 G/DL (32-36); MEAN CORPUSCULAR VOLUME 88 FL (80-99); MEAN PLATELET VOLUME 10.3 FL (7.4-10.4); MONOCYTES # (AUTO) 0.8 X 10^3 (0.0-1.0); MONOCYTES % (AUTO) 10 % (0-12); NEUTROPHILS # (AUTO) 3.8 X 10^3 (1.8-7.8); NEUTROPHILS % (AUTO) 49 % (42-75); PLATELET COUNT 233 10^3/uL (130-400); RED CELL DISTRIBUTION WIDTH 13.4 % (10.0-14.5); WHITE BLOOD COUNT 7.8 10^3/uL (4.3-11.0)
[2018-09-08 06:09] VITALS: BP 100/63
[2018-09-08 06:26] LABS: ALANINE AMINOTRANSFERASE 12 U/L (0-55); ALBUMIN 3.4 GM/DL (3.2-4.5); ALKALINE PHOSPHATASE 72 U/L (40-136); BILIRUBIN,TOTAL 0.4 MG/DL (0.1-1.0); BUN/CREATININE RATIO 28; CALCIUM 9.1 MG/DL (8.5-10.1); CARBON DIOXIDE 23 MMOL/L (21-32); CHLORIDE 107 MMOL/L (98-107); CREATININE SERUM 0.69 MG/DL (0.60-1.30); GFR ESTIMATED > 60; GLUCOSE 174 MG/DL (70-105); POTASSIUM 4.3 MMOL/L (3.6-5.0); SODIUM 139 MMOL/L (135-145); TOTAL PROTEIN 5.6 GM/DL (6.4-8.2)
--- NOTE | 2018-09-08 07:12 | NUR ---
bedside report given to IVANNA ALMONTE
--- NOTE | 2018-09-08 08:45 | PM&R Progress Note ---
Subjective HPI/CC On Admission Date Seen by Provider: Sep 08, 2018 Time Seen by Provider: 08:45 CC: Right basal ganglia stroke HPI: This is a 58yoWF clinic pt of Dr. 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 Pt was admitted placed on TIA protocol and CT scan showed no evidence of hemorrhage pt was closely monitored placed on Telemetry checked echocardiogram laboratory monitoring and close blood sugar control although HGB A1C was 12.2. MRI confirmed right basal ganglia infarct. Dr. Awad will se her in consultation for risk stratification of and embolic stroke and she will be maintained on telemetry an overall has seen an immense improvement in her symptoms but still having issues with walking in addition to fine motor skills of the left hand. Smoking cessation counseled and insulin initiation will be started and carotid ultrasound was reviewed which showed no stenosis, chest xray was negative but the MRI did show prior CVAs. She does want to treat her Neuropathy with Lyrica a nd we will start her on 50mg tonight. Subjective/Events-last exam Loop recorder will be placed today by Dr. Awad. Dr. Awad thinks the PVC scenario is changing into atrial fibrillation. Appreciate Dr. Awad's consult. Lyrica of 50 Mgs at night was started and she is getting good benefits. Increased sugars are improving but will increase Lantus from 10 to 20 units at night and maintain 10 units of Novolog before meals. Labs reviewed and all within normal limits. Conferred with RN Reviewed therapy notes Review of Systems Neurological: Weakness, Incoordination Objective Exam Vital Signs Vital Signs Date Time Temp Pulse Resp B/P (MAP) Pulse Ox O2 Delivery O2 Flow Rate FiO2 09/08/18 21:06 Room Air 09/08/18 19:00 87 09/08/18 16:03 97.6 14 118/77 (91) 97 Capillary Refill : General Appearance: No Apparent Distress, WD/WN, Chronically ill HEENT: PERRL/EOMI, Normal ENT Inspection, Pharynx Normal, Moist Mucous Membranes Neck: Full Range of Motion, Normal Inspection, Non Tender, Supple Respiratory: Chest Non Tender, Lungs Clear, Normal Breath Sounds, No Accessory Muscle Use, No Respiratory Distress Cardiovascular: Regular Rate, Rhythm, No Edema, No Gallop, No JVD, No Murmur Gastrointestinal: Normal Bowel Sounds, No Organomegaly, No Pulsatile Mass, Non Tender, Soft Back: Normal Inspection, No CVA Tenderness, No Vertebral Tenderness Extremity: Normal Capillary Refill, Normal Inspection, Normal Range of Motion, Non Tender, No Calf Tenderness, No Pedal Edema Neurologic/Psychiatric: Alert, Oriented x3, No Motor/Sensory Deficits (decreased strength left upper and lower), Normal 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 FIM Transfers Therapy Code Descriptions/Definitions Functional [place] Measure: 0=Not Assessed/NA 4=Minimal Assistance 1=Total Assistance 5=Supervision or Setup 2=Maximal Assistance 6=Modified [place] 3=Moderate Assistance 7=Complete [place] Therapy Quality Codes: 6 Independent with activity with or without an assistive device 5 Patient requires set up or clean up by helper. Patient completes activity by themselves 4 Supervision or touching assist (CGA). [place] provide cues , steadying assist 3 The helper provides less than half the effort to complete the activity 2 The helper provides more than half the effort to complete the activity 1 Dependent. The helper does all the effort to complete an activity 7 Patient refused to complete or attempt activity 9 The patient did not perform the activity before the current illness or injury 88 Not attempted due to Medical conditions or safety concerns Transfers (B, C, W/C) (FIM): 4 Roll Left to Right (QC): 4 Supine to/from Sit: 4 Sit to/from Stand: 4 (skilled cues for sequencing and hand placement. CGA for safety.) Sit to Lying (QC): 4 (CGA to guide her trunk) Sit to Stand (QC): 4 (min assist from several surfaces to include recliner, wc and park bench) Chair/Osb-va-Ypwac Xfer(QC): 4 Car Transfer (QC): 4 Gait Training Does the Patient Walk?: Yes Gait (FIM): 4 Distance (FIM): 9=968-61 ft Distance: 150 ft x 5 Walk 10 feet (QC): 4 Walk 50 ft with 2 Turns(QC): 4 Walk 150 ft (QC): 88 Walking 10ft/uneven surface-QC: 4 Gait Level of Assist: 4 (CGA with skilled cues for sequencing) Gait Assistive Device: FWW Wheelchair Training Does the Pt Use a Wheelchair?: No Stair Training Stairs (FIM): 1 #of Steps: 1 1 Step (curb) (QC): 4 4 Steps (QC): 88 12 Steps (QC): 88 Level of Assist: 4 (cues for sequncing and walker placement) Balance Picking up an Object (QC): 88 ADL-Treatment Feedin (pt reports feeding herself after set up) Eating (QC): 5 Groomin Oral Hygiene (QC): 4 Bathin Shower/Bathe Self (QC): 4 Upper Extremity Dressin Upper Body Dressing (QC): 4 Lower Extremity Dressin (CGA) Lower Body Dressing (QC): 4 On/Off Footwear (QC): 4 Toiletin (CGA) Toileting Hygiene (QC): 4 Toilet/Commode Transfer: 4 (CGA) Shower: 4 Assessment/Plan Assessment and Plan Assess & Plan/Chief Complaint Assessment: Subacute right basal ganglia infarct with subsequent left sided weakness residual Diabetes mellitus now insulin-dependent. Cue-zt-watvwhr levels of 12.2 hemoglobin A1c Hypertension Smoker in midst of cessation Hyperlipidemia CAD previous stent Neuropathy Plan: Inpatient rehabilitation protocols Lyrica 50 MG daily at bedtime Monitor blood sugar and blood pressure Consult cardiology Plavix replacing aspirin since she was on aspirin before and suffered a stroke Monitor closely Loop records today Increase insulin (1) CVA (cerebral vascular accident) (2) Cerebrovascular small vessel disease (3) Infarction of right basal ganglia (4) Diabetes (5) Unstable angina (6) CAD (coronary artery disease) (7) HTN (hypertension) (8) Presence of stent in coronary artery (9) Smoker MIYA CASTILLO DO Sep 08, 2018 08:45
[2018-09-08] MEDS: CLOPIDOGREL 75 MG (PLAVIX) TABLET PO SCH (09:02)
[2018-09-08] MEDS: NICOTINE 14 MG (NICODERM) PATCH TD SCH (09:02)
--- NOTE | 2018-09-08 10:32 | Physical Therapy Daily Note ---
PT Daily Note-Current Subjective Pt. agrees to Rx. States she is feeling stronger already and slept well Pain Location: No Pain Reported Mental Status Patient Orientation: Normal For Age Attachments: Other-See Comments (telemetry) Transfers Therapy Code Descriptions/Definitions Functional [place] Measure: 0=Not Assessed/NA 4=Minimal Assistance 1=Total Assistance 5=Supervision or Setup 2=Maximal Assistance 6=Modified [place] 3=Moderate Assistance 7=Complete [place] Therapy Quality Codes: 6 Independent with activity with or without an assistive device 5 Patient requires set up or clean up by helper. Patient completes activity by themselves 4 Supervision or touching assist (CGA). [place] provide cues , steadying assist 3 The helper provides less than half the effort to complete the activity 2 The helper provides more than half the effort to complete the activity 1 Dependent. The helper does all the effort to complete an activity 7 Patient refused to complete or attempt activity 9 The patient did not perform the activity before the current illness or injury 88 Not attempted due to Medical conditions or safety concerns Transfers (B, C, W/C) (FIM): 6 Scootin Rollin Supine to/from Sit: 6 Sit to/from Stand: 6 Gait Training Does the Patient Walk?: Yes Gait (FIM): 4 Distance (FIM): 3=150 ft (150,100,75x2) Gait Level of Assist: 4 Gait Persons Needed: 1 Gait Assistive Device: FWW some narrow WILMER, staggers a couple times, left LE unstable at times Wheelchair Training Does the Pt Use a Wheelchair?: Yes Wheelchair (FIM): 6 Wheelchair Distance: 3=150 ft (x1) Wheelchair Level of Assist: 6 Type of Wheelchair: Manual Stair Training Stair Training: Handrails/: uses walker #of Steps: 2 Stairs: Pattern: Step to Level of Assist: 4 up down pink step x 2 with CGA Exercises Supine Ex: Bridging, Ankle pumps, Quad Set, Rolling, Glut sets, Heel Slides, Short Arc Quads, Scooting, Straight leg raise, Hip abd/add Supine Reps: 20 (plus x 10) Seated Therapy Exercises: Ankle pumps, Sit to stand, Long arc quads, Hip flexion, Hip abd/add Seated Reps: 12 Treatments quadruped, crawling and tall on knees with fair balance Assessment Current Status: Good Progress PT Short Term Goals Short Term Goals Time Frame: Sep 14, 2018 Gait (FIM): 5 PT Vp [employer] And Crm Goals Vp [employer] And Crm Goals PT Assisted Goals Time Frame: Sep 21, 2018 Transfers (B,C,W/C) (FIM): 7 Sit to Lying (QC): 6 Lying-Sitting on Side/Bed(QC): 6 Sit to Stand (QC): 6 Roll Left to Right (QC): 6 Chair/Zrk-vl-Xxuqs Xfer(QC): 6 Car Transfer (QC): 6 Does the Patient Walk: Yes Gait (FIM): 6 Gait distance (FIM): 3=150 ft Walk 10 feet (QC): 6 Walk 10ft-Uneven Surface(QC): 6 Walk 50ft with 2 Turns (QC): 6 Walk 150 ft (QC): 6 Gait Assistive Device: FWW Does the Pt use WC or Scooter?: No Stairs (FIM): 6 1 Step (curb) (QC): 6 4 Steps (QC): 6 12 Steps (QC): 6 Picking up an Object (QC): 4 PT Plan Treatment/Plan Treatment Plan: Continue Plan of Care Treatment Plan: Bed Mobility, Education, Functional Activity [place], Functional Strength, Group Therapy, Gait, Safety, Therapeutic Exercise, Transfers Treatment Duration: Sep 21, 2018 Frequency: At least 5 of 7 days/Wk (IRF) Estimated Hrs Per Day: 1.5 hours per day Patient and/or Family Agrees t: Yes Safety Risks/Education Patient Education: Gait Training, Transfer Techniques, Steps, Correct Positioning, Disease Process, Safety Issues Teaching Recipient: Patient Teaching Methods: Demonstration, Discussion Response to Teaching: Verbalize Understanding, Return Demonstration, Reinforcement Needed Time/GCodes Time In: 930 Time Out: 1030 Total Billed Treatment Time: 60 Total Billed Treatment 1,EX30m,FA10m,GT20m G Codes Necessary: No ARAMIS LARA IUSS ACOUSTIC ANALYST Sep 08, 2018 10:32
--- NOTE | 2018-09-08 11:13 | Occupational Ther Daily Note ---
OT Current Status-Daily Note Subjective Pt in bed, agrees to therapy. No c/o pain Mental Status/Objective Therapy Code Descriptions/Definitions Functional [place] Measure: 0=Not Assessed/NA 4=Minimal Assistance 1=Total Assistance 5=Supervision or Setup 2=Maximal Assistance 6=Modified [place] 3=Moderate Assistance 7=Complete [place] ADL-Treatment Pt states she has already completed grooming tasks. Declined shower this morning. Therapy Code Descriptions/Definitions Functional [place] Measure: 0=Not Assessed/NA 4=Minimal Assistance 1=Total Assistance 5=Supervision or Setup 2=Maximal Assistance 6=Modified [place] 3=Moderate Assistance 7=Complete [place] Therapy Quality Codes: 6 Independent with activity with or without an assistive device 5 Patient requires set up or clean up by helper. Patient completes activity by themselves 4 Supervision or touching assist (CGA). [place] provide cues , steadying assist 3 The helper provides less than half the effort to complete the activity 2 The helper provides more than half the effort to complete the activity 1 Dependent. The helper does all the effort to complete an activity 7 Patient refused to complete or attempt activity 9 The patient did not perform the activity before the current illness or injury 88 Not attempted due to Medical conditions or safety concerns Other Treatment Supine to sit with modified independence. Sit to stand with supervision. Gait to therapy gym with FWW, no LOB noted. Pt completed putty activity with left hand to increase strength and manipulation skills. Pt able to remove large beads from minimal resistance putty with increased time and effort. Graded clothespin activity with left hand to increase strength. Pt uses gross grasp to complete task. Unable to manipulate highest resistance clothespins secondary to decreased strength. Left UE exercises completed to increase strength needed for ADL tasks and transfers. Pt performed shoulder flexion, abduction, biceps curls, and triceps extension exercises x10 reps with minimal resistance (yellow) theraband. Left wrist flex/ext x10 reps with half pound weight. Pt completed opposition exercises x10 with left hand. Arm bike x5 minutes to increase overall strength and activity tolerance needed for functional task completion. Pt completed task with slow pace and no resistance. Has some difficulty maintaining grasp with left hand. No rest breaks needed. Bilateral fine motor task with nuts and bolts to increase coordination skills. Pt has difficulty with left hand secondary to decreased coordination and occasionally drops items. Pt is able to complete task with increased time. Standing adames bag toss with left hand to increase gross movements of left UE and grasp/release, as well as standing balance. Pt requires CGA for balance. Pt returned to room, sitting in chair with needs met after session. OT Short Term Goals Short Term Goals Time Frame: Sep 14, 2018 Bathing(FIM): 5 Lower Body Dressing(FIM): 5 Toileting(FIM): 5 Toilet/Commode Transfer(FIM): 5 Shower Transfer(FIM): 5 Additional Short Term Goals: 1-Demonstrate ADL Tasks, 2-Verbalize Understanding, 3-ImproveStrength/Marco Antonio 1=Demonstrate adherence to instructed precautions during ADL tasks. 2=Patient will verbalize/demonstrate understanding of assistive devices/modifications for ADL. 3=Patient will improve strength/tolerance for activity to enable patient to perform ADL's. OT [place]ishing [place]essel Goals [place] Goals Time Frame: Sep 28, 2018 Eating (FIM): 6 Eating (QC): 6 Groomin Oral Hygiene (QC): 6 Bathing(FIM): 6 Shower/Bathe Self (QC): 6 Upper Body Dressing(FIM): 6 Upper Body Dressing (QC): 6 Lower Body Dressing(FIM): 6 Lower Body Dressing (QC): 6 On/Off Footwear (QC): 6 Toileting(FIM): 6 Toileting Hygiene (QC): 6 Toilet/Commode Transfer(FIM): 6 Toilet/Commode Transfer (QC): 6 Shower Transfer(FIM): 6 Additional Goals: 1-Demonstrate ADL Tasks, 2-Verbalize Understanding, 3- ImproveStrength/Marco Antonio 1=Demonstrate adherence to instructed precautions during ADL tasks. 2=Patient will verbalize/demonstrate understanding of assistive dev ices/modifications for ADL. 3=Patient will improve strength/tolerance for activity to enable patient to perform ADL's. OT Education/Plan Discharge Recommendations Plan/Recommendations: Continue POC Treatment Plan/Plan of Care Patient would benefit from OT for education, treatment and training to promote independence in ADL's, mobility, safety and/or upper extremity function for ADL's. Plan of Care: ADL Retraining, Functional Mobility, Group Exercise/Act as Ind, UE Funct Exercise/Act, UE Neuromus Re-Ed/Coord Treatment Duration: Sep 28, 2018 Frequency: At least 5 of 7 days/Wk (IRF) Estimated Hrs Per Day: 1.5 hours per day Agreement: Yes Rehab Potential: Good Time/GCodes Start Time: 08:00 Stop Time: 09:00 Total Time Billed (hr/min): 60 Billed Treatment Time 1 visit, EXx2(35minutes), FAx2(25minutes) SOFÍA ABBASI OT Sep 08, 2018 11:13
--- NOTE | 2018-09-08 11:30 | ST Cognitive Linguistic Eval ---
Speech Evaluation-General Medical Diagnosis CVA Onset Date: Sep 07, 2018 Therapy Diagnosis Therapy Diagnosis: cogntive-communication Precautions Precautions: Fall Precautions/Isolations: Fall Prevention, Standard Precautions Referral Referring Physician: Dr. Shaver Reason for Referral: Evaluation/Treatment Medical History Pertinent Medical History: CAD, DM, GERD, HTN, Smoking CAD, DM, GERD, HTN, Smoking Current History CVA Reviewed History: Yes Social History Home: Single Level Current Living Status: Spouse (her daughter and grandchildren live with her as well) Speech PLF-Current Status Prior Level of Function Patient lived at home with her and was independent with daily needs Subjective Patient was alert and pleasant Language Eval: Auditory Comprehends Simple Yes/No Ques: Functional Indent/Objects Multiple Lindsay: Functional Ident/Pics in Multiple Lindsay: Functional Follows 1-Step Commands: Functional Follows Complex Directions: Functional Follows General Conversations: Functional Language Eval: Verbal Language Completes Spontaneous Greeting: Functional Produces Auto, Serial Info: Functional Imitates Simple Words/Phrases: Functional Word Finding: Functional Requests Basic Needs: Functional States Basic Personal Info: Functional Expresses Complex Ideas: Functional Cognitive Patient Orientation Patient oriented to day, year, and place Objective Cognitive Domain Attention: WNL Memory: WNL Problem Solving: Functional Executive Functions: WNL Visuospatial Skills: WNL Composite Severity Rating: WNL Clock Drawing Severity Rating: WNL Score: 28/30 Range: Normal Objective Formal/Standardized Tests Patient was given the [facility] Mental Status (UMS) Results Patient scored a 28/30 indicating normal cognitive skills Oral Motor/Speech Production Oral motor and speech production are WNL Impression Patient demonstrates WNL cognitive-communication skills Communication/Social Cognition Comprehension: 7 Expression: 7 Social Interaction: 7 Problem Solvin Memory: 7 Speech Patient Assess Expression of Ideas/Wants: Expression (4) Understanding Verbal Content: Understands (4) Brief Interview-Mental Status: Yes Repetition of Three Words: Three (3) Temporal Orientation: Year: Correct (3) Temporal Orientation: Month: Accurate within 5 days(2) Temporal Orientation: Day: Correct (1) Recall : Wear to say "Sock": Yes, no cue required (2) Recall : Color: Yes, no cue required (2) Recall : Bed: Yes, no cue required (2) Add-Enter 99 if pt cannot comp: 99 Memory/Recall Ability: Staff names and faces, That he or she is in a hsp/hsp unit Speech-Plan Patient/Family Goals Patient/Family Goals: Patient plans to return home with Treatment Plan Speech Therapy Treatment Plan: Discontinue ST Patient presents with SNL cognitive-communication skills and skilled therapy is not warranted at this time Frequency: 1 time per week Estimated Hrs Per Day: .25 hour per day Rehab Potential: Good Barriers to Learning: none noted Pt/Family Agrees to Plan: Yes Safety Risks/Education Teaching Recipient: Patient, Significant Other Teaching Methods: Discussion Response to Teaching: Verbalize Understanding Education Topics Provided: safety in room and speech services Discharge Recommendations Home w/ Family Support Time Speech Therapy Time In: 11:00 Speech Therapy Time Out: 11:15 Total Billed Time: 15 Billed Treatment Time 1, SPSNDIDALMIS Dumont Sep 08, 2018 11:30
[2018-09-08] MEDS ORDERED: LIDOCAINE 1% INJ 20 ML 20 ML VIAL ONE (13:38)
--- NOTE | 2018-09-08 14:49 | Therapy Group Daily Note ---
Therapy Daily Group Note Patient Education Topic Other List Below (Proper transfers and Techniques for opening containers & lids (fine motor skills)) Exercises LE Seated Exercise, UE Exercise Session Ratio (pt:therapist): 3:1 Goal of Session: Home Safety Strategies, UE/LE Strengthing, Safety with Transfers, Use of Adaptive Equipment Goal Met for this Session: Yes Pt Benefit of Group: Contributions to Others, F/U Use of Strategies @Home, Increased Functional Safety, Increased Functional Strength, Improved Cognition, Recognition of Peers, Socialization Other/Notes Pt ambulates to PT/OT Group using FWW. Group consists of Introductions (Name, Where you are from & Favorite Summertime Activity), Socialization, Patient led UE & LE Seated Exercises, Proper Transfer Techniques as well as Techniques & Equipment to aid with opening containers & lids (fine motor skills). Pt meets goals during tx by actively participating in exercises, giving steps to proper transfers as well as what patient personally uses or ways patient is able to open containers and lids. Pt leaves for medical procedure at end of Group. Pt has all needs met. Start Time: 13:00 Stop Time: 14:00 Total Billed Treatment Time: 60 Total Billed Treatment 1, GRP (60m) JOAN [employer] Sep 08, 2018 14:49
[2018-09-08 14:55] VITALS: BP 108/74
--- NOTE | 2018-09-08 14:55 | NUR ---
PEARL PELLER attempted to meet with patient to complete initial assessment. Patient had just completed all therapies for the day and was resting. PEARL PELLER will re-attempt at a later date.
[2018-09-08 16:03] VITALS: BP 118/77
--- NOTE | 2018-09-08 16:38 | Cardiology Progress Note ---
Cardiology SOAP Progress Note Subjective: no cardiac symptoms. Objective: I&O/Vital Signs 09/08/18 09/08/18 09/08/18 09/08/18 06:09 07:00 13:00 14:55 Temp 97.6 97.8 Pulse 72 87 79 78 Resp 20 20 B/P (MAP) 100/63 (75) 108/74 (85) Pulse Ox 98 97 O2 Delivery Room Air Room Air 09/08/18 16:03 Temp 97.6 Pulse 78 Resp 14 B/P (MAP) 118/77 (91) Pulse Ox 97 O2 Delivery Room Air 09/08/18 00:00 Intake Total 150 ml Balance 150 ml Weight (Pounds): 166 Weight (Ounces): 0.0 Weight (Calculated Kilograms): [id number] Constitutional: appears stated age, AAO x 3; No apparent distress; well- developed, well-nourished Respiratory: No accessory muscle use, No respiratory distress, No chest tender, No chest expansion is symmetric; chest is bilaterally symmetric; No lungs clear to percussion; lungs clear to auscultation; No crackles, No rhonchi, No rales, No stridor, No wheezing, No pleural rub, No other Cardiovascular: regular rate-rhythm; No irregularly irregular, No extra beats, No parasternal heave is noted, No JVD, No edema, No bradycardia, No tachycardia, No point of maximal impulse, No cardiac thrills are palpable; S1 and S2; No ga llop/S3, No gallop/S4, No diastolic murmur, No systolic murmur, No friction rub, No click, No other Gastrointestional: No tender, No soft, No round, No distended, No pulsatile mass, No organomegaly, No guarding, No rebound, No tenderness, No hernia, No mass, No audible bowel sounds, No abnormal bowel sounds, No abdominal bruits, No spleenomegaly, No other Extremities: No normal range of motion, No non-tender, No normal inspection, No pedal edema, No calf tenderness, No normal capillary refill, No pelvis stable, No calf tenderness, No inflammation, No pedal edema, No slow capillary refill, No swelling, No other, No abrasion, No clubbing, No cyanosis, No ecchymosis, No laceration, No no lower extremity edema bilateral, No significant edema, No tenderness, No wound Neurologic/Psychiatric: alert, normal mood/affect, oriented x 3 Skin: No normal color, No warm/dry, No cyanosis, No cool, No diaphoresis, No damp, No ecchymosis, No jaundice, No mottled, No pallor, No rash, No tattoos/piercings, No ulcerations, No rash on exposed areas, No ulcerations on exposed areas, No other Results/Procedures: Labs Laboratory Tests 09/07/18 20:37: Glucometer 345H 09/07/18 21:36: Glucometer 323H 09/08/18 05:25: White Blood Count 7.8, Red Blood Count 5.04, Hemoglobin 14.9, Hematocrit 44, Mean Corpuscular Volume 88, Mean Corpuscular Hemoglobin 30, Mean Corpuscular Hemoglobin Concent 34, Red Cell Distribution Width 13.4, Platelet Count 233, Mean Platelet Volume 10.3, Neutrophils (%) (Auto) 49, Lymphocytes (%) (Auto) 38, Monocytes (%) (Auto) 10, Eosinophils (%) (Auto) 3, Basophils (%) (Auto) 1, Neutrophils # (Auto) 3.8, Lymphocytes # (Auto) 2.9, Monocytes # (Auto) 0.8, Eo sinophils # (Auto) 0.2, Basophils # (Auto) 0.1, Sodium Level 139, Potassium Level 4.3, Chloride Level 107, Carbon Dioxide Level 23, Anion Gap 9, Blood Urea Nitrogen 19H, Creatinine 0.69, Estimat Glomerular Filtration Rate > 60, BUN/Cre atinine Ratio 28, Glucose Level 174H, Calcium Level 9.1, Corrected Calcium 9.6, Total Bilirubin 0.4, Aspartate Amino Transf (AST/SGOT) 10, Alanine Aminotransferase (ALT/SGPT) 12, Alkaline Phosphatase 72, Total Protein 5.6L, Albumin 3.4 09/08/18 05:37: Glucometer 175H 09/08/18 11:15: Glucometer 187H 09/08/18 16:02: Glucometer 216H A/P: Assessment/Dx: Right basal ganglia stroke, cryptogenic stroke, History of CAD/PCI. Plan: Negative workup for etiology of stroke. Stroke has been confirmed on MRI. Bilateral carotid ultrasound is negative. Telemetry negative for any arrhythmias. Echocardiogram was negative for any intracardiac shunting. Diagnosis is likely cryptogenic stroke. Long-term surveillance for atrial fibrillation is recommended with an implantable loop recorder. I have discussed at length with the patient and informed consent taken. implantable loop recorder will be done today. Patient is on Plavix for CAD. Will also require statin therapy. Thank you for your consultation. Please call me if you have any questions. Joe Awad MD, FACP, FACC, FSCAI, FHRS, CCDS Interventional Cardiology Cardiac Electrophysiology Vascular Medicine and Endovascular Interventions Keyon AWAD MD Sep 08, 2018 16:38
--- NOTE | 2018-09-08 16:39 | Implantation of Loop Monitor ---
Implant of Loop Monitior PROCEDURE PHYSICIAN: Joe Awad MD IMPLANTATION OF LOOP MONITOR REPORT DATE OF PROCEDURE: 09/08/18 PERFORMING PHYSICIAN: Dr. Selwyn Awad. INDICATION: cryptogenic stroke,Long-term surveillance of atrial fibrillation PREOP DIAGNOSIS: cryptogenic stroke,Long-term surveillance of atrial fibrillation POSTOP DIAGNOSIS: cryptogenic stroke, s/p implantation of loop recorder. PROCEDURE DETAILS: The patient is a 58 female with history of cryptogenic stroke. Therefore implantable loop recorder was discussed and agreed with the patient. Informed consent was taken. All risks and complications were discussed at length. The patient was draped and prepped in the usual sterile fashion. Local anesthesia was lidocaine, which was given in the substernal area close to the 4th intercostal space. Loop monitor was implanted according to the protocol. Steri- Strips were placed at the end of the procedure. There were no complications and the patient tolerated the procedure well. ANESTHESIA: Local anesthesia with lidocaine. COMPLICATIONS: None CONTRAST/FLUOROSCOPY: None CONCLUSION: 1. Successful implantation of loop monitor for cryptogenic stroke. 2. No complication and the patient tolerated the procedure well. Joe Awad MD, FHRS, CCDS Cardiac Electrophysiology Keyon AWAD MD Sep 08, 2018 16:39
[2018-09-08] MEDS: ATORVASTATIN 80 MG (LIPITOR) TABLET PO SCH (20:41)
[2018-09-08] MEDS: PREGABALIN 50 MG (LYRICA) CAP PO SCH (20:41)
--- NOTE | 2018-09-08 21:49 | Individualized Plan of Care ---
Individualized Plan of Care Rehab Nursing IPOC Order Admission Date Sep 07, 2018 at 12:00 Current Orders Orders Admission Order(Inpt,Obs,Sdc) (09/07/18 09:23) Vital Signs: Per Unit Policy ( 08,16,00 (09/07/18 09:23) Terminal Press Operator-Inpt Rehab Con (09/07/18 09:23) Rehab Nursing Orders-Ipoc (09/07/18 09:23) Physical Therapy Rehab Orders (09/07/18 09:23) Occupational Therapy Rehab Ord (09/07/18 09:23) Speech Therapy Rehab Orders (09/07/18 09:23) Intake & Output 06,14,22 (09/07/18 09:23) Precautions (Aru) (09/07/18 09:23) Weekly Weight (Lbs) WEEK (09/07/18 09:23) Rehab-Intensity Of Therapy (09/07/18 09:23) Initiate Admission Nursing Pro .admission (09/07/18 09:23) Pregabalin Capsule (Lyrica Capsule) (09/07/18 21:00) Admission Arrival Bed Request (09/07/18 12:00) Ambulate 08,12,20 (09/07/18 13:18) Sequential Compression Device 08,20 (09/07/18 13:18) Dvt/Vte Risk - Notifiy Physici 08 (09/07/18 13:18) Request Ot Evaluate & Treat (09/07/18 13:18) Patient Visit (09/07/18 ) Pt Eval Moderate Complexity (09/07/18 ) Functional Activities, Ea 15 (09/07/18 ) Code/Resuscitation (09/07/18 13:53) Accucheck Achs ACHS (09/07/18 13:53) Activity As Ordered (09/07/18 13:53) Initiate Admission Nursing Pro .admission (09/07/18 13:53) Sequential Compression Device 08,20 (09/07/18 13:53) Vital Signs: Every 4 Hours (Or (09/07/18 13:53) Cho 75g/M 0snack (21-2400 [place]) (09/07/18 Dinner) Clopidogrel Tablet (Plavix Tablet) (09/08/18 09:00) Melatonin Tablet (Melatonin Tablet) (09/07/18 14:00) Magnesium Hydroxide Oral Susp (Mom Oral (09/07/18 14:00) Antacid Suspension (Mylanta Suspension (09/07/18 14:00) Nicotine Patch (Nicoderm Patch) (09/08/18 09:00) Nitroglycerin Ointment (Nitrobid Ointme (09/07/18 14:00) Patch Removal (Patch Removal) (09/09/18 09:00) Sodium Chloride Flush (Catheter Flush Sy (09/07/18 14:00) Benzonatate Capsule (Tessalon Perles) (09/07/18 14:00) Acetaminophen Tablet/Caplet (Tylenol T (09/07/18 14:00) Ondansetron Injection (Zofran Injectio (09/07/18 14:00) Insulin Aspart (Novolog) (Novolog (Charg (09/07/18 16:00) Insulin Determir (Per Unit) (Levemir (Pe (09/07/18 21:00) Consult Cardiology (09/07/18 13:53) Telemetry Nursing Assessment ( (09/07/18 13:53) Atorvastatin Tablet (Lipitor Tablet) (09/07/18 21:00) Patient Visit (09/07/18 ) Gait Training, Ea 15 Min (09/07/18 ) Pregabalin Capsule (Lyrica Capsule) (09/07/18 21:00) Insulin Aspart (Novolog) (Novolog (Charg (09/08/18 07:00) Cbc With Automated Diff (09/08/18 06:00) Comprehensive Metabolic Panel (09/08/18 06:00) Insulin Determir (Per Unit) (Levemir (Pe (09/08/18 21:00) Patient Visit (09/08/18 ) Exercise Therap, Ea 15 Min (09/08/18 ) Functional Activities, Ea 15 (09/08/18 ) Gait Training, Ea 15 Min (09/08/18 ) Lidocaine 1% Inj 20 Ml (Xylocaine 1% Inj (09/08/18 13:38) Patient Visit (09/08/18 ) Therapeutic, Group (09/08/18 ) Patient Visit (09/08/18 ) Speech Sound Lang Comp (09/08/18 ) Rehab Nursing Orders: Ongoing Assess. of Cognitive Status, Ongoing Assess. of Function Status, Bowel Management, Disease Management & Educaiton, DVT Prophylaxis, Fall Prevention, Fluid/Electrolyte/Nutrition Mgmt, Medication Management & Education, Management of Risks & Complications, Management of Skin Intergrity, Pain Management, Patient/Family Support, Safety Management Intensity of Therapy to be met Patient to be seen: Min.3h per day/5 of 7d PT IPOC Problem List: Activity Tolerance, Functional Strength, Safety, Balance, Gait, Transfer Treatment Plan: Continue Plan of Care Bed Mobility, Education, Functional Activity Marco Antonio, Functional Strength, Group Therapy, Gait, Safety, Therapeutic Exercise, Transfers Treatment Duration: Sep 21, 2018 Frequency: At least 5 of 7 days/Wk (IRF) Estimated Hrs Per Day: 1.5 hours per day OT IPOC Problems: Decreased Activ Tolerance, Decreased UE Strength, Dependent Transfers, Impaired Coordination, Impaired I ADL's, Impaired Self-Care Skills OT Treatment, Training and Edu: Yes Plan of Care: ADL Retraining, Functional Mobility, Group Exercise/Act as Ind, UE Funct Exercise/Act, UE Neuromus Re-Ed/Coord Treatment Duration: Sep 28, 2018 Frequency: 5 times per week Estimated Hrs Per Day: 1.[address] IPOC Speech Therapy Treatment Plan: Continue Plan of Care Treatment Duration: Sep 09, 2018 Frequency: 1 time per week Estimated Hrs Per Day: .25 hour per day Terminal Press Operator/Case Mgmt Terminal Press Operator/Case Managemen: Discharge Planning Dietitian/Rn Mds Dietitian/Rn Mds to monitor nutritional status and make changes and/or recommendations as needed and work with speech pathology on dietary upgrades as the occur. Physician IPOC Medical Issues being managed closely and that require the 24 hour availability of a physician: Recent stroke with high risk for falls placement of loop recorder to evaluate t he source of the stroke thus far nonrevealing and all workup with new onset insulin-dependent's will require multiple insulin dose changes and monitoring closely blood pressure to prevent another stroke Brief Synthesis of Preadmission Screen, Post-Admission Evaluation, and Therapy Evaluations: Physical therapy will work on walking with walker and fall prevention Occupational therapy will work to regain independence during ADLs Medical Prognosis: Good Anticipated Length of Stay: 7 days MIYA CASTILLO DO Sep 08, 2018 21:49
[2018-09-09 05:49] VITALS: BP 100/64
[2018-09-09] MEDS: inSUlin ASPART (NovoLOG) 1 UNIT/0.01 ML (CHARGE PER UNIT) SC SCH ×7 (06:46→22:24)
--- NOTE | 2018-09-09 09:31 | Physical Therapy Daily Note ---
PT Daily Note-Current Subjective Pt. agrees to Rx, was difficult to awaken, states she dreamed all night Pain Location: No Pain Reported Mental Status Patient Orientation: Normal For Age Transfers Therapy Code Descriptions/Definitions Functional [place] Measure: 0=Not Assessed/NA 4=Minimal Assistance 1=Total Assistance 5=Supervision or Setup 2=Maximal Assistance 6=Modified [place] 3=Moderate Assistance 7=Complete [place] Therapy Quality Codes: 6 Independent with activity with or without an assistive device 5 Patient requires set up or clean up by helper. Patient completes activity by themselves 4 Supervision or touching assist (CGA). [place] provide cues , steadying assist 3 The helper provides less than half the effort to complete the activity 2 The helper provides more than half the effort to complete the activity 1 Dependent. The helper does all the effort to complete an activity 7 Patient refused to complete or attempt activity 9 The patient did not perform the activity before the current illness or injury 88 Not attempted due to Medical conditions or safety concerns Transfers (B, C, W/C) (FIM): 6 Scootin Rollin Supine to/from Sit: 6 Sit to/from Stand: 6 Gait Training Does the Patient Walk?: Yes Gait (FIM): 4 Distance (FIM): 3=150 ft (160x3) Gait Level of Assist: 4 Gait Persons Needed: 1 Gait Assistive Device: FWW work on broadening WILMER noble with turns , also DF which pt. does well with if she concentrates Exercises Supine Ex: Bridging, Ankle pumps, Quad Set, Rolling, Glut sets, Heel Slides, Short Arc Quads, Scooting, Straight leg raise, Hip abd/add Supine Reps: 12 (10) Seated Therapy Exercises: Ankle pumps, Sit to stand, Long arc quads Seated Reps: 12 NuStep Minutes: 12 NuStep Workload: 4 Assessment Current Status: Good Progress PT Short Term Goals Short Term Goals Time Frame: Sep 14, 2018 Gait (FIM): 5 PT Speaker Mounter Goals Correction Goals PT Speaker Mounter Goals Time Frame: Sep 21, 2018 Transfers (B,C,W/C) (FIM): 7 Sit to Lying (QC): 6 Lying-Sitting on Side/Bed(QC): 6 Sit to Stand (QC): 6 Rollin Roll Left to Right (QC): 6 Chair/Roq-mh-[place]cl[place] Xfer(QC): 6 Car Transfer (QC): 6 Does the Patient Walk: Yes Gait (FIM): 6 Gait distance (FIM): 3=150 ft Walk 10 feet (QC): 6 Walk 10ft-Uneven Surface(QC): 6 Walk 50ft with 2 Turns (QC): 6 Walk 150 ft (QC): 6 Gait Assistive Device: FWW Does the Pt use WC or Scooter?: No Stairs (FIM): 6 1 Step (curb) (QC): 6 4 Steps (QC): 6 12 Steps (QC): 6 Picking up an Object (QC): 4 PT Plan Treatment/Plan Treatment Plan: Continue Plan of Care Treatment Plan: Bed Mobility, Education, Functional Activity Marco Antonio, Functional Strength, Group Therapy, Gait, Safety, Therapeutic Exercise, Transfers Treatment Duration: Sep 21, 2018 Frequency: At least 5 of 7 days/Wk (IRF) Estimated Hrs Per Day: 1.5 hours per day Patient and/or Family Agrees t: Yes Safety Risks/Education Patient Education: Gait Training, Transfer Techniques, Correct Positioning, Disease Process Teaching Recipient: Patient Teaching Methods: Demonstration, Discussion Response to Teaching: Verbalize Understanding, Return Demonstration, Reinforcement Needed Time/GCodes Time In: 830 Time Out: 930 Total Billed Treatment Time: 60 Total Billed Treatment 1,EX25m,FA20m,GT15m G Codes Necessary: ARAMIS Rider MANAGED CARE LIAISON Sep 09, 2018 09:31
--- NOTE | 2018-09-09 09:50 | NUR ---
FINGER BUFFS ASSEMBLER met with patient to complete initial assessment. Patient was alert and oriented and agreeable to assessment. Patient admitted to ARU from internally following a CVA. Patient presents with left-sided weakness. Prior to hospitalization patient, spouse, adult daughter and grandchildren resided in a one level home in [place], [place]. The home has 3 steps at the entrance without railing; however, patient was able to utilize the home structure for support with steps, if needed. The home also has a basement which is utilized for laundry. 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 Although patient utilized no DME, she does possess a front-wheeled walker, cane and shower chair. Primary contact identified as spouse Shreyas at [phone] and secondary contact as daughter at the at [phone]. Shreyas is retired and can provide physical assistance as needed. He works multimedia services manager days is available in the evenings. PCP identified as Dr. Luis Denis; however, patient requests to utilize Dr. Shaver as her primary care physician, going forward. Per patient, Dr. Shaver has agreed to this. [employer] Sales Consultant identified as Dr. Awad (placement of loop recorder). Insurance verified as [employer] with required clinical update due on 730. Patient does possess prescription coverage and utilizes [facility] for local needs. FINGER BUFFS ASSEMBLER reviewed typical ARU length of stay and weekly team conferences. Patient expresses no concerns or questions at this time. FINGER BUFFS ASSEMBLER will continue to follow.
[2018-09-09] MEDS: CLOPIDOGREL 75 MG (PLAVIX) TABLET PO SCH (10:10)
[2018-09-09] MEDS: PATCH REMOVAL TP SCH (10:10)
[2018-09-09] MEDS: NICOTINE 14 MG (NICODERM) PATCH TD SCH (10:10)
--- NOTE | 2018-09-09 10:15 | PM&R Progress Note ---
Subjective HPI/CC On Admission Date Seen by Provider: Sep 09, 2018 Time Seen by Provider: 08:45 CC: Right basal ganglia stroke HPI: This is a 58yoWF clinic pt of Dr. 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 who presented to the ER with complaints of left sided weakness. Pt was admitted placed on TIA protocol and CT scan showed no evidence of hemorrhage pt was clos johnny monitored placed on Telemetry checked echocardiogram laboratory monitoring and close blood sugar control although HGB A1C was 12.2. MRI confirmed right basal ganglia infarct. Dr. Awad will se her in consultation for risk stratification of and embolic stroke and she will be maintained on telemetry an overall has seen an immense improvement in her symptoms but still having issues with walking in addition to fine motor skills of the left hand. Smoking cessation counseled and insulin initiation will be started and carotid ultrasound was reviewed which showed no stenosis, chest xray was negative but the MRI did show prior CVAs. She does want to treat her Neuropathy with Lyrica and we will start her on 50mg tonight. Subjective/Events-last exam Loop recorder placed yesterday by Dr. Awad. Dr. Awad thinks the PVC scenario is changing into atrial fibrillation. Appreciate Dr. Awad's consult. Lyrica of 50 Mg at night was started and she is getting good benefits. Increased sugars are improving since increase Lantus from 10 to 20 units at night and maintain 10 units of Novolog before meals. Labs reviewed and all within normal limits. Conferred with RN Reviewed therapy notes Review of Systems Neurological: Weakness, Numbness, Incoordination Objective Exam Vital Signs Vital Signs Date Time Temp Pulse Resp B/P (MAP) Pulse Ox O2 Delivery O2 Flow Rate FiO2 09/09/18 07:00 84 09/09/18 05:49 97.0 18 100/64 (76) 99 Room Air Capillary Refill : General Appearance: No Apparent Distress, WD/WN, Chronically ill HEENT: PERRL/EOMI, Normal ENT Inspection, Pharynx Normal, Moist Mucous Membranes Neck: Full Range of Motion, Normal Inspection, Non Tender, Supple Respiratory: Chest Non Tender, Lungs Clear, Normal Breath Sounds, No Accessory Muscle Use, No Respiratory Distress Cardiovascular: Regular Rate, Rhythm, No Edema, No Gallop, No JVD, No Murmur Gastrointestinal: Normal Bowel Sounds, No Organomegaly, No Pulsatile Mass, Non Tender, Soft Back: Normal Inspection, No CVA Tenderness, No Vertebral Tenderness Extremity: Normal Capillary Refill, Normal Inspection, Normal Range of Motion, Non Tender, No Calf Tenderness, No Pedal Edema Neurologic/Psychiatric: Alert, Oriented x3, No Motor/Sensory Deficits (decreased strength left upper and lower), Normal Mood/Affect, chief operator reformer II-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 FIM Transfers Therapy Code Descriptions/Definitions Functional [place] Measure: 0=Not Assessed/NA 4=Minimal Assistance 1=Total Assistance 5=Supervision or Setup 2=Maximal Assistance 6=Modified [place] 3=Moderate Assistance 7=Complete [place] Therapy Quality Codes: 6 Independent with activity with or without an assistive device 5 Patient requires set up or clean up by helper. Patient completes activity by themselves 4 Supervision or touching assist (CGA). [place] provide cues , steadying assist 3 The helper provides less than half the effort to complete the activity 2 The helper provides more than half the effort to complete the activity 1 Dependent. The helper does all the effort to complete an activity 7 Patient refused to complete or attempt activity 9 The patient did not perform the activity before the current illness or injury 88 Not attempted due to Medical conditions or safety concerns Transfers (B, C, W/C) (FIM): 6 Scootin Rollin Roll Left to Right (QC): 4 Supine to/from Sit: 6 Sit to/from Stand: 6 Sit to Lying (QC): 4 (CGA to guide her trunk) Sit to Stand (QC): 4 (min assist from several surfaces to include recliner, wc and park bench) Chair/Ejf-oz-Eyplc Xfer(QC): 4 Car Transfer (QC): 4 Gait Training Does the Patient Walk?: Yes Gait (FIM): 4 Distance (FIM): 3=150 ft (160x3) Distance: 150 ft x 5 Walk 10 feet (QC): 4 Walk 50 ft with 2 Turns(QC): 4 Walk 150 ft (QC): 88 Walking 10ft/uneven surface-QC: 4 Gait Level of Assist: 4 Gait Persons Needed: 1 Gait Assistive Device: FWW Wheelchair Training Does the Pt Use a Wheelchair?: Yes Wheelchair (FIM): 6 Wheelchair Distance: 3=150 ft (x1) Wheelchair Level of Assist: 6 Type of Wheelchair: Manual Stair Training Stair Training: Handrails/: uses walker Stairs (FIM): 1 #of Steps: 2 1 Step (curb) (QC): 4 4 Steps (QC): 88 12 Steps (QC): 88 Stairs: Pattern: Step to Level of Assist: 4 Balance Picking up an Object (QC): 88 Mental Status/Objective Comprehension: 7 Expression: 7 Social Interaction: 7 Problem Solvin Memory: 7 ADL-Treatment Feedin (pt reports feeding herself after set up) Eating (QC): 5 Groomin Oral Hygiene (QC): 4 Bathin Shower/Bathe Self (QC): 4 Upper Extremity Dressin Upper Body Dressing (QC): 4 Lower Extremity Dressin (CGA) Lower Body Dressing (QC): 4 On/Off Footwear (QC): 4 Toiletin (CGA) Toileting Hygiene (QC): 4 Toilet/Commode Transfer: 4 (CGA) Shower: 4 Assessment/Plan Assessment and Plan Assess & Plan/Chief Complaint Assessment: Subacute right basal ganglia infarct with subsequent left sided weakness residual Diabetes mellitus now insulin-dependent. [id number] levels of 12.2 hemoglobin A1c Hypertension Smoker in midst of cessation Hyperlipidemia CAD previous stent Neuropathy Plan: Inpatient rehabilitation protocols Lyrica 50 MG daily at bedtime Monitor blood sugar and blood pressure Consult cardiology Plavix replacing aspirin since she was on aspirin before and suffered a stroke Monitor closely Loop recorder Increase insulin (1) CVA (cerebral vascular accident) (2) Cerebrovascular small vessel disease (3) Infarction of right basal ganglia (4) Diabetes (5) Unstable angina (6) CAD (coronary artery disease) (7) HTN (hypertension) (8) Presence of stent in coronary artery (9) Smoker MIYA CASTILLO DO Sep 09, 2018 10:15
--- NOTE | 2018-09-09 13:07 | Occupational Ther Daily Note ---
OT Current Status-Daily Note Subjective Pt sitting in chair, agrees to therapy. Mental Status/Objective Therapy Code Descriptions/Definitions Functional [place] Measure: 0=Not Assessed/NA 4=Minimal Assistance 1=Total Assistance 5=Supervision or Setup 2=Maximal Assistance 6=Modified [place] 3=Moderate Assistance 7=Complete [place] ADL-Treatment Pt declined shower, states she took one last night, but would like to get dressed. Pt donned pullover shirt with set up. Able to thread bilateral LE into pants without assist. Stood with good balance during pant hike. Therapy Code Descriptions/Definitions Functional [place] Measure: 0=Not Assessed/NA 4=Minimal Assistance 1=Total Assistance 5=Supervision or Setup 2=Maximal Assistance 6=Modified [place] 3=Moderate Assistance 7=Complete [place] Therapy Quality Codes: 6 Independent with activity with or without an assistive device 5 Patient requires set up or clean up by helper. Patient completes activity by themselves 4 Supervision or touching assist (CGA). [place] provide cues , steadying assist 3 The helper provides less than half the effort to complete the activity 2 The helper provides more than half the effort to complete the activity 1 Dependent. The helper does all the effort to complete an activity 7 Patient refused to complete or attempt activity 9 The patient did not perform the activity before the current illness or injury 88 Not attempted due to Medical conditions or safety concerns Upper Body (FIM): 5 Upper Body Dressing (QC): 5 Lower Body Dressing (FIM): 5 Lower Body Dressing (QC): 5 Other Treatment Gait to therapy gym with FWW, no LOB noted. Pt competed resistance peg activity with left hand to increase coordination. Able to place pegs in pegboard without assist. Pt completed fine motor task of stacking small blocks with left hand. Pt has mild difficulty with task secondary to decreased coordination, but is able to complete with increased time. Bilateral UE exercises to increase strength needed for ADLs and transfers. Pt performed shoulder flexion, forward press, biceps curls, and wrist flex/ext x10 reps with 1# dowel tray. Rest breaks between exercises. Arm bike x7 minutes to increase overall strength and activity tolerance. Pt completed task with minimal resistance and slow pace. No rest breaks needed. Pt has some difficulty maintaining grasp with left hand. Pt completed fine motor task of picking up small beads and placing in container with increased time with left hand. Graded clothespins with left hand to inc rease commercial review appraiser/pinch strength. Pt returned to room, sitting in chair with needs met after session. OT Short Term Goals Short Term Goals Time Frame: Sep 14, 2018 Bathing(FIM): 5 Lower Body Dressing(FIM): 5 Toileting(FIM): 5 Toilet/Commode Transfer(FIM): 5 Shower Transfer(FIM): 5 Additional Short Term Goals: 1-Demonstrate ADL Tasks, 2-Verbalize Understanding, 3-ImproveStrength/Marco Antonio 1=Demonstrate adherence to instructed precautions during ADL tasks. 2=Patient will verbalize/demonstrate understanding of assistive devices/modifications for ADL. 3=Patient will improve strength/tolerance for activity to enable patient to perform ADL's. OT Nursing Service Director Goals Longterm Goals Time Frame: Sep 28, 2018 Eating (FIM): 6 Eating (QC): 6 Groomin Oral Hygiene (QC): 6 Bathing(FIM): 6 Shower/Bathe Self (QC): 6 Upper Body Dressing(FIM): 6 Upper Body Dressing (QC): 6 Lower Body Dressing(FIM): 6 Lower Body Dressing (QC): 6 On/Off Footwear (QC): 6 Toileting(FIM): 6 Toileting Hygiene (QC): 6 Toilet/Commode Transfer(FIM): 6 Toilet/Commode Transfer (QC): 6 Shower Transfer(FIM): 6 Additional Goals: 1-Demonstrate ADL Tasks, 2-Verbalize Understanding, 3- ImproveStrength/Marco Antonio 1=Demonstrate adherence to instructed precautions during ADL tasks. 2=Patient will verbalize/demonstrate understanding of assistive devices/modifications for ADL. 3=Patient will improve strength/tolerance for activity to enable patient to perform ADL's. OT Education/Plan Discharge Recommendations Plan/Recommendations: Continue POC Treatment Plan/Plan of Care Patient would benefit from OT for education, treatment and training to promote independence in ADL's, mobility, safety and/or upper extremity function for ADL's. Plan of Care: ADL Retraining, Functional Mobility, Group Exercise/Act as Ind, UE Funct Exercise/Act, UE Neuromus Re-Ed/Coord Treatment Duration: Sep 28, 2018 Frequency: 5 times per week Estimated Hrs Per Day: 1.5 hours per day Agreement: Yes Rehab Potential: Good Time/GCodes Start Time: 10:00 Stop Time: 11:00 Total Time Billed (hr/min): 60 Billed Treatment Time 1 visit, ADL(10minutes), FA(30minutes), EX(20minutes) SOFÍA ABBASI OT Sep 09, 2018 13:07
--- NOTE | 2018-09-09 15:09 | Therapy Group Daily Note ---
Therapy Daily Group Note Patient Education Topic Other List Below (memory strategies) Session Ratio (pt:therapist): 3:1 Goal of Session: Memory Strategies Goal Met for this Session: Yes Pt Benefit of Group: Contributions to Others, Improved Cognition, Recognition of Peers, Socialization Other/Notes Pt. participated in group PT OT session this date. Pt. ambulated to from with FWW CGA. Pts. were social , introduced themselves and shared a little about their lives. Pts participated in group memory activity recalling 5 items they had established to remember on Wednesday. Pts also played visual memory game w [employer] . Typical memory challenges were discussed and how to manage memory loss etc. Pt. to room after group with maldonado at hand, needs met Start Time: 13:00 Stop Time: 14:10 Total Billed Treatment Time: 70 Total Billed Treatment 1,GRP ARAMIS LARA AURICULOTHERAPIST Sep 09, 2018 15:09
[2018-09-09 15:35] VITALS: BP 97/63
--- NOTE | 2018-09-09 19:33 | Cardiology Progress Note ---
Cardiology SOAP Progress Note Subjective: No cardiac complaints. Objective: I&O/Vital Signs 09/09/18 09/09/18 08:10 15:35 Temp 97.4 Pulse 84 Resp 16 B/P (MAP) 97/63 (74) Pulse Ox 97 O2 Delivery Room Air Room Air 09/09/18 00:00 Intake Total 522 ml Balance 522 ml Weight (Pounds): 166 Weight (Ounces): 0.0 Weight (Calculated Kilograms): 75.007221 Constitutional: appears stated age, AAO x 3; No apparent distress; well- developed, well-nourished Respiratory: No accessory muscle use, No respiratory distress, No chest tender, No chest expansion is symmetric; chest is bilaterally symmetric; No lungs clear to percussion; lungs clear to auscultation; No crackles, No rhonchi, No rales, No stridor, No wheezing, No pleural rub, No other Cardiovascular: regular rate-rhythm; No irregularly irregular, No extra beats, No parasternal heave is noted, No JVD, No edema, No bradycardia, No tachycardia, No point of maximal impulse, No cardiac thrills are palpable; S1 and S2; No gallop/S3, No gallop/S4, No diastolic murmur, No systolic murmur, No friction rub, No click, No other Gastrointestional: No tender, No soft, No round, No distended, No pulsatile mass, No organomegaly, No guarding, No rebound, No tenderness, No hernia, No mass, No audible bowel sounds, No abnormal bowel sounds, No abdominal bruits, No spleenomegaly, No other Extremities: No normal range of motion, No non-tender, No normal inspection, No pedal edema, No calf tenderness, No normal capillary refill, No pelvis stable, No calf tenderness, No inflammation, No pedal edema, No slow capillary refill, No swelling, No other, No abrasion, No clubbing, No cyanosis, No ecchymosis, No laceration, No no lower extremity edema bilateral, No significant edema, No tenderness, No wound Neurologic/Psychiatric: alert, normal mood/affect, oriented x 3 Skin: No normal color, No warm/dry, No cyanosis, No cool, No diaphoresis, No damp, No ecchymosis, No jaundice, No mottled, No pallor, No rash, No tattoos/piercings, No ulcerations, No rash on exposed areas, No ulcerations on exposed areas, No other Results/Procedures: Labs Laboratory Tests 09/08/18 20:38: Glucometer 149H 09/09/18 05:40: Glucometer 230H 09/09/18 11:55: Glucometer 229H 09/09/18 15:32: Glucometer 187H A/P: Assessment/Dx: Right basal ganglia stroke, cryptogenic stroke, History of CAD/PCI. Plan: Negative workup for etiology of stroke. Stroke has been confirmed on MRI. Bilateral carotid ultrasound is negative. Telemetry negative for any arrhythmias. Echocardiogram was negative for any intracardiac shunting. D iagnosis is likely cryptogenic stroke. Long-term surveillance for atrial fibrillation is recommended with an implantable loop recorder. I have discussed at length with the patient and informed consent taken. implantable loop recorder will be done 09/08/2018. Patient is on Plavix for CAD. Will also require statin therapy. Thank you for your consultation. Please call me if you have any questions. Joe Awad MD, FACP, FACC, FSCAI, FHRS, CCDS Interventional Cardiology Cardiac Electrophysiology Vascular Medicine and Endovascular Interventions Keyon AWAD MD Sep 09, 2018 19:33
[2018-09-09] MEDS: PREGABALIN 50 MG (LYRICA) CAP PO SCH (20:33)
[2018-09-09] MEDS: ATORVASTATIN 80 MG (LIPITOR) TABLET PO SCH (20:33)
[2018-09-09] MEDS: ACETAMINOPHEN 325 MG TABLET PO PRN (20:59)
[2018-09-10] MEDS: inSUlin ASPART (NovoLOG) 1 UNIT/0.01 ML (CHARGE PER UNIT) SC SCH ×7 (05:58→21:08)
[2018-09-10 06:24] VITALS: BP 101/63
[2018-09-10] MEDS: CLOPIDOGREL 75 MG (PLAVIX) TABLET PO SCH (08:34)
[2018-09-10] MEDS: NICOTINE 14 MG (NICODERM) PATCH TD SCH (08:34)
[2018-09-10] MEDS: PATCH REMOVAL TP SCH (08:34)
--- NOTE | 2018-09-10 11:35 | PM&R Progress Note ---
Subjective HPI/CC On Admission Date Seen by Provider: Sep 10, 2018 Time Seen by Provider: 11:00 CC: Right basal ganglia stroke HPI: This is a 58yoWF clinic pt of Dr. 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 Pt was admitted placed on TIA protocol and CT scan showed no evidence of hemorrhage pt was clos johnny monitored placed on Telemetry checked echocardiogram laboratory monitoring and close blood sugar control although HGB A1C was 12.2. MRI confirmed right basal ganglia infarct. Dr. Awad will se her in consultation for risk stratification of and embolic stroke and she will be maintained on telemetry an overall has seen an immense improvement in her symptoms but still having issues with walking in addition to fine motor skills of the left hand. Smoking cessation counseled and insulin initiation will be started and carotid ultrasound was reviewed which showed no stenosis, chest xray was negative but the MRI did show prior CVAs. She does want to treat her Neuropathy with Lyrica and we will start her on 50mg tonight. Subjective/Events-last exam Loop recorder placed [address] Awad thinks the PVC scenario is changing into atrial fibrillation and she does have extra systoles Appreciate Dr. Awad's consult. Lyrica of 50 Mg at night was started and she is getting good benefits. Increased sugars are improving since increase Lantus from 10 to 20 units at night and maintain 10 units of Novolog before meals. Sugar 175 this morning Labs reviewed and all within normal limits. Edema in legs will be addressed with JENNA romeo of which she usually wore them at work anyway Visitor with patient today Depression episode this morning and still is a bit depressed Fine motor skills need additional work Conferred with RN Reviewed therapy notes Review of Systems General: Fatigue Neurological: Weakness, Numbness, Incoordination Objective Exam Vital Signs Vital Signs Date Time Temp Pulse Resp B/P (MAP) Pulse Ox O2 Delivery O2 Flow Rate FiO2 09/10/18 06:24 97.2 68 18 101/63 (76) 95 Room Air Capillary Refill : General Appearance: No Apparent Distress, WD/WN, Chronically ill HEENT: PERRL/EOMI, Normal ENT Inspection, Pharynx Normal, Moist Mucous Membranes Neck: Full Range of Motion, Normal Inspection, Non Tender, Supple Respiratory: Chest Non Tender, Lungs Clear, Normal Breath Sounds, No Accessory Muscle Use, No Respiratory Distress Cardiovascular: Regular Rate, Rhythm, No Edema, No Gallop, No JVD, No Murmur Gastrointestinal: Normal Bowel Sounds, No Organomegaly, No Pulsatile Mass, Non Tender, Soft Back: Normal Inspection, No CVA Tenderness, No Vertebral Tenderness Extremity: Normal Capillary Refill, Normal Inspection, Normal Range of Motion, Non Tender, No Calf Tenderness, No Pedal Edema Neurologic/Psychiatric: Alert, Oriented x3, No Motor/Sensory Deficits (decreased strength left upper and lower), Normal 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 FIM Transfers Therapy Code Descriptions/Definitions Functional [place] Measure: 0=Not Assessed/NA 4=Minimal Assistance 1=Total Assistance 5=Supervision or Setup 2=Maximal Assistance 6=Modified [place] 3=Moderate Assistance 7=Complete [place] Therapy Quality Codes: 6 Independent with activity with or without an assistive device 5 Patient requires set up or clean up by helper. Patient completes activity by themselves 4 Supervision or touching assist (CGA). [place] provide cues , steadying assist 3 The helper provides less than half the effort to complete the activity 2 The helper provides more than half the effort to complete the activity 1 Dependent. The helper does all the effort to complete an activity 7 Patient refused to complete or attempt activity 9 The patient did not perform the activity before the current illness or injury 88 Not attempted due to Medical conditions or safety concerns Transfers (B, C, W/C) (FIM): 6 Scootin Rollin Roll Left to Right (QC): 4 Supine to/from Sit: 6 Sit to/from Stand: 6 Sit to Lying (QC): 4 (CGA to guide her trunk) Sit to Stand (QC): 4 (min assist from several surfaces to include recliner, wc and park bench) Chair/Hoc-hp-Vmykr Xfer(QC): 4 Car Transfer (QC): 4 Gait Training Does the Patient Walk?: Yes Gait (FIM): 4 Distance (FIM): 3=150 ft (160x3) Distance: 150 ft x 5 Walk 10 feet (QC): 4 Walk 50 ft with 2 Turns(QC): 4 Walk 150 ft (QC): 88 Walking 10ft/uneven surface-QC: 4 Gait Level of Assist: 4 Gait Persons Needed: 1 Gait Assistive Device: FWW Wheelchair Training Does the Pt Use a Wheelchair?: Yes Wheelchair (FIM): 6 Wheelchair Distance: 3=150 ft (x1) Wheelchair Level of Assist: 6 Type of Wheelchair: Manual Stair Training Stair Training: Handrails/: uses walker Stairs (FIM): 1 #of Steps: 2 1 Step (curb) (QC): 4 4 Steps (QC): 88 12 Steps (QC): 88 Stairs: Pattern: Step to Level of Assist: 4 Balance Picking up an Object (QC): 88 Mental Status/Objective Comprehension: 7 Expression: 7 Social Interaction: 7 Problem Solvin Memory: 7 ADL-Treatment Feedin (pt reports feeding herself after set up) Eating (QC): 5 Groomin Oral Hygiene (QC): 4 Bathin Shower/Bathe Self (QC): 4 Upper Extremity Dressin Upper Body Dressing (QC): 5 Lower Extremity Dressin Lower Body Dressing (QC): 5 On/Off Footwear (QC): 4 Toiletin (CGA) Toileting Hygiene (QC): 4 Toilet/Commode Transfer: 4 (CGA) Shower: 4 Assessment/Plan Assessment and Plan Assess & Plan/Chief Complaint Assessment: Subacute right basal ganglia infarct with subsequent left sided weakness residual Diabetes mellitus now insulin-dependent. Yks-[id number] levels of 12.2 hemoglobin A1c Hypertension Smoker in midst of cessation Hyperlipidemia CAD previous stent Neuropathy Mild edema placing JENNA's Depression/Acute grief Plan: Inpatient rehabilitation protocols Lyrica 50 MG daily at bedtime Monitor blood sugar and blood pressure Consult cardiology Plavix replacing aspirin since she was on aspirin before and suffered a stroke Monitor closely Loop recorder Increase insulin JENNA's Monitor emotional status (1) CVA (cerebral vascular accident) (2) Cerebrovascular small vessel disease (3) Infarction of right basal ganglia (4) Diabetes (5) Unstable angina (6) CAD (coronary artery disease) (7) HTN (hypertension) (8) Presence of stent in coronary artery (9) Smoker MIYA CASTILLO DO Sep 10, 2018 11:35
--- NOTE | 2018-09-10 13:24 | Cardiology Progress Note ---
Cardiology SOAP Progress Note Subjective: No cardiac complaints. Objective: I&O/Vital Signs 09/10/18 06:24 Temp 97.2 Pulse 68 Resp 18 B/P (MAP) 101/63 (76) Pulse Ox 95 O2 Delivery Room Air 09/10/18 00:00 Intake Total 600 ml Balance 600 ml Weight (Pounds): 166 Weight (Ounces): 0.0 Weight (Calculated Kilograms): 75.898454 Constitutional: appears stated age, AAO x 3; No apparent distress; well- developed, well-nourished Respiratory: No accessory muscle use, No respiratory distress, No chest tender, No chest expansion is symmetric; chest is bilaterally symmetric; No lungs clear to percussion; lungs clear to auscultation; No crackles, No rhonchi, No rales, No stridor, No wheezing, No pleural rub, No other Cardiovascular: regular rate-rhythm; No irregularly irregular, No extra beats, No parasternal heave is noted, No JVD, No edema, No bradycardia, No tachycardia, No point of maximal impulse, No cardiac thrills are palpable; S1 and S2; No gallop/S3, No gallop/S4, No diastolic murmur, No systolic murmur, No friction rub, No click, No other Gastrointestional: No tender, No soft, No round, No distended, No pulsatile mass, No organomegaly, No guarding, No rebound, No tenderness, No hernia, No mass, No audible bowel sounds, No abnormal bowel sounds, No abdominal bruits, No spleenomegaly, No other Extremities: No normal range of motion, No non-tender, No normal inspection, No pedal edema, No calf tenderness, No normal capillary refill, No pelvis stable, No calf tenderness, No inflammation, No pedal edema, No slow capillary refill, No swelling, No other, No abrasion, No clubbing, No cyanosis, No ecchymosis, No laceration, No no lower extremity edema bilateral, No significant edema, No tenderness, No wound Neurologic/Psychiatric: alert, normal mood/affect, oriented x 3 Skin: No normal color, No warm/dry, No cyanosis, No cool, No diaphoresis, No damp, No ecchymosis, No jaundice, No mottled, No pallor, No rash, No tattoos/piercings, No ulcerations, No rash on exposed areas, No ulcerations on exposed areas, No other Results/Procedures: Labs Laboratory Tests 09/09/18 15:32: Glucometer 187H 09/09/18 22:17: Glucometer 204H 09/10/18 05:24: Glucometer 170H 09/10/18 11:03: Glucometer 106 A/P: Assessment/Dx: Right basal ganglia stroke, cryptogenic stroke, History of CAD/PCI. Plan: Negative workup for etiology of stroke. Stroke has been confirmed on MRI. Bilateral carotid ultrasound is negative. Telemetry negative for any arrhythmias. Echocardiogram was negative for any intracardiac shunting. Diagnosis is likely cryptogenic stroke. Long-term surveillance for atrial fibrillation is recommended with an implantable loop recorder. I have discussed at length with the patient and informed consent taken. implantable loop recorder done 09/08/2018. Patient is on Plavix for CAD. Will also require statin therapy. Thank you for your consultation. Please call me if you have any questions. Joe Awad MD, FACP, FACC, FSCAI, FHRS, CCDS Interventional Cardiology Cardiac Electrophysiology Vascular Medicine and Endovascular Interventions Keyon AWAD MD Sep 10, 2018 1:24 pm
--- NOTE | 2018-09-10 13:33 | Physical Therapy Daily Note ---
PT Daily Note-Current Subjective Pt. and working on fine motor activities in her room picking up small objects. Pt. states she is feeling stronger, more in control and would like to have ok to be up and bout with her and eventually up ad [place]. Pain Location: No Pain Reported Mental Status Patient Orientation: Normal For Age Transfers Therapy Code Descriptions/Definitions Functional [place] Measure: 0=Not Assessed/NA 4=Minimal Assistance 1=Total Assistance 5=Supervision or Setup 2=Maximal Assistance 6=Modified [place] 3=Moderate Assistance 7=Complete [place] Therapy Quality Codes: 6 Independent with activity with or without an assistive device 5 Patient requires set up or clean up by helper. Patient completes activity by themselves 4 Supervision or touching assist (CGA). [place] provide cues , steadying assist 3 The helper provides less than half the effort to complete the activity 2 The helper provides more than half the effort to complete the activity 1 Dependent. The helper does all the effort to complete an activity 7 Patient refused to complete or attempt activity 9 The patient did not perform the activity before the current illness or injury 88 Not attempted due to Medical conditions or safety concerns Transfers (B, C, W/C) (FIM): 6 Scootin Rollin Supine to/from Sit: 6 Sit to/from Stand: 6 Bed to/from Chair: 6 Gait Training Does the Patient Walk?: Yes Gait (FIM): 6 Distance (FIM): 3=150 ft (200x2) Gait Level of Assist: 6 Gait Persons Needed: 0 Gait Assistive Device: FWW side steps, tight turns, retro, no crossovers, much improved DF and heel strike Exercises Seated Therapy Exercises: Ankle pumps, Sit to stand, Long arc quads, Hip flexion, Hip abd/add Seated Reps: 15 Treatments gait and gait belt instruction with Assessment Current Status: Good Progress good progress in all phases, safety awareness improved PT Short Term Goals Short Term Goals Time Frame: Sep 14, 2018 Gait (FIM): 5 PT Champagne Maker Goals Champagne Maker Goals PT Champagne Maker Goals Time Frame: Sep 21, 2018 Transfers (B,C,W/C) (FIM): 7 Sit to Lying (QC): 6 Lying-Sitting on Side/Bed(QC): 6 Sit to Stand (QC): 6 Rollin Roll Left to Right (QC): 6 Chair/Mss-il-Gnylh Xfer(QC): 6 Car Transfer (QC): 6 Does the Patient Walk: Yes Gait (FIM): 6 Gait distance (FIM): 3=150 ft Walk 10 feet (QC): 6 Walk 10ft-Uneven Surface(QC): 6 Walk 50ft with 2 Turns (QC): 6 Walk 150 ft (QC): 6 Gait Assistive Device: FWW Does the Pt use WC or Scooter?: No Stairs (FIM): 6 1 Step (curb) (QC): 6 4 Steps (QC): 6 12 Steps (QC): 6 Picking up an Object (QC): 4 PT Plan Treatment/Plan Treatment Plan: Continue Plan of Care Treatment Plan: Bed Mobility, Education, Functional Activity Marco Antonio, Functional Strength, Group Therapy, Gait, Safety, Therapeutic Exercise, Transfers Treatment Duration: Sep 21, 2018 Frequency: At least 5 of 7 days/Wk (IRF) Estimated Hrs Per Day: 1.5 hours per day Patient and/or Family Agrees t: Yes Safety Risks/Education Patient Education: Gait Training, Transfer Techniques, Correct Positioning, Disease Process, Safety Issues Teaching Recipient: Patient Teaching Methods: Demonstration, Discussion Response to Teaching: Verbalize Understanding, Return Demonstration, Reinforce ment Needed Time/GCodes Time In: 1235 Time Out: 1255 Total Billed Treatment Time: 20 Total Billed Treatment 1,GT20m G Codes Necessary: ARAMIS Rider COLOR MIXER Sep 10, 2018 13:33
[2018-09-10 18:00] VITALS: BP 110/63
[2018-09-10] MEDS: ATORVASTATIN 80 MG (LIPITOR) TABLET PO SCH (21:22)
[2018-09-10] MEDS: PREGABALIN 50 MG (LYRICA) CAP PO SCH (21:22)
[2018-09-10] MEDS: ACETAMINOPHEN 325 MG TABLET PO PRN (21:26)
[2018-09-11 05:39] VITALS: BP 91/63
[2018-09-11] MEDS: inSUlin ASPART (NovoLOG) 1 UNIT/0.01 ML (CHARGE PER UNIT) SC SCH ×7 (05:43→21:02)
[2018-09-11] MEDS: NICOTINE 14 MG (NICODERM) PATCH TD SCH (08:56)
[2018-09-11] MEDS: CLOPIDOGREL 75 MG (PLAVIX) TABLET PO SCH (08:56)
[2018-09-11] MEDS: PATCH REMOVAL TP SCH (08:57)
--- NOTE | 2018-09-11 11:31 | PM&R Progress Note ---
Subjective HPI/CC On Admission Date Seen by Provider: Sep 11, 2018 Time Seen by Provider: 10:00 CC: Right basal ganglia stroke HPI: This is a 58yoWF clinic pt of Dr. 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 Pt was admitted placed on TIA protocol and CT scan showed no evidence of hemorrhage pt was clos johnny monitored placed on Telemetry checked echocardiogram laboratory monitoring and close blood sugar control although HGB A1C was 12.2. MRI confirmed right basal ganglia infarct. Dr. Awad will se her in consultation for risk stratification of and embolic stroke and she will be maintained on telemetry an overall has seen an immense improvement in her symptoms but still having issues with walking in addition to fine motor skills of the left hand. Smoking cessation counseled and insulin initiation will be started and carotid ultrasound was reviewed which showed no stenosis, chest xray was negative but the MRI did show prior CVAs. She does want to treat her Neuropathy with Lyrica and we will start her on 50mg tonight. Subjective/Events-last exam Loop recorder placed [address] Awad thinks the PVC scenario is changing into atrial fibrillation and she does have extra systoles. Appreciate Dr. Awad's consult. Lyrica of 50 Mg at night was started 3 nights ago and she is getting good benefits. Sugars are improved on increased insulin Labs reviewed and all within normal limits. JENNA jackson javad edema Talked about depression and she is very tearful so started on Wellbutrin which will help her smoking cessation process Fine motor skills need additional work but her hand is able to be extended now and not curled up Conferred with RN Reviewed therapy notes Review of Systems General: Fatigue Neurological: Weakness, Numbness, Incoordination, Other (depression) Objective Exam Vital Signs Vital Signs Date Time Temp Pulse Resp B/P (MAP) Pulse Ox O2 Delivery O2 Flow Rate FiO2 09/11/18 09:00 Room Air 09/11/18 05:39 97.0 77 18 91/63 (72) 94 Capillary Refill : General Appearance: No Apparent Distress, WD/WN, Chronically ill HEENT: PERRL/EOMI, Normal ENT Inspection, Pharynx Normal, Moist Mucous Membranes Neck: Full Range of Motion, Normal Inspection, Non Tender, Supple Respiratory: Chest Non Tender, Lungs Clear, Normal Breath Sounds, No Accessory Muscle Use, No Respiratory Distress Cardiovascular: Regular Rate, Rhythm, No Edema, No Gallop, No JVD, No Murmur Gastrointestinal: Normal Bowel Sounds, No Organomegaly, No Pulsatile Mass, Non Tender, Soft Back: Normal Inspection, No CVA Tenderness, No Vertebral Tenderness Extremity: Normal Capillary Refill, Normal Inspection, Normal Range of Motion, Non Tender, No Calf Tenderness, No Pedal Edema Neurologic/Psychiatric: Alert, Oriented x3, No Motor/Sensory Deficits (decreased strength left upper and lower), Normal 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 FIM Transfers Therapy Code Descriptions/Definitions Functional [place] Measure: 0=Not Assessed/NA 4=Minimal Assistance 1=Total Assistance 5=Supervision or Setup 2=Maximal Assistance 6=Modified [place] 3=Moderate Assistance 7=Complete [place] Therapy Quality Codes: 6 Independent with activity with or without an assistive device 5 Patient requires set up or clean up by helper. Patient completes activity by themselves 4 Supervision or touching assist (CGA). [place] provide cues , steadying assist 3 The helper provides less than half the effort to complete the activity 2 The helper provides more than half the effort to complete the activity 1 Dependent. The helper does all the effort to complete an activity 7 Patient refused to complete or attempt activity 9 The patient did not perform the activity before the current illness or injury 88 Not attempted due to Medical conditions or safety concerns Transfers (B, C, W/C) (FIM): 6 Scootin Rollin Roll Left to Right (QC): 4 Supine to/from Sit: 6 Sit to/from Stand: 6 Sit to Lying (QC): 4 (CGA to guide her trunk) Sit to Stand (QC): 4 (min assist from several surfaces to include recliner, wc and park bench) Chair/Zww-pf-Bnxwk Xfer(QC): 4 Bed to/from Chair: 6 Car Transfer (QC): 4 Gait Training Does the Patient Walk?: Yes Gait (FIM): 6 Distance (FIM): 3=150 ft (200x2) Distance: 150 ft x 5 Walk 10 feet (QC): 4 Walk 50 ft with 2 Turns(QC): 4 Walk 150 ft (QC): 88 Walking 10ft/uneven surface-QC: 4 Gait Level of Assist: 6 Gait Persons Needed: 0 Gait Assistive Device: FWW Wheelchair Training Does the Pt Use a Wheelchair?: Yes Wheelchair (FIM): 6 Wheelchair Distance: 3=150 ft (x1) Wheelchair Level of Assist: 6 Type of Wheelchair: Manual Stair Training Stair Training: Handrails/: uses walker Stairs (FIM): 1 #of Steps: 2 1 Step (curb) (QC): 4 4 Steps (QC): 88 12 Steps (QC): 88 Stairs: Pattern: Step to Level of Assist: 4 Balance Picking up an Object (QC): 88 Mental Status/Objective Comprehension: 7 Expression: 7 Social Interaction: 7 Problem Solvin Memory: 7 ADL-Treatment Feedin (pt reports feeding herself after set up) Eating (QC): 5 Groomin Oral Hygiene (QC): 4 Bathin Shower/Bathe Self (QC): 4 Upper Extremity Dressin Upper Body Dressing (QC): 5 Lower Extremity Dressin Lower Body Dressing (QC): 5 On/Off Footwear (QC): 4 Toiletin (CGA) Toileting Hygiene (QC): 4 Toilet/Commode Transfer: 4 (CGA) Shower: 4 Assessment/Plan Assessment and Plan Assess & Plan/Chief Complaint Assessment: Subacute right basal ganglia infarct with subsequent left sided weakness residual Diabetes mellitus now insulin-dependent. Isl-gh-[id number] levels of 12.2 he moglobin A1c Hypertension Smoker in midst of cessation Hyperlipidemia CAD previous stent Neuropathy Mild edema placing JENNA's Depression/Acute grief Plan: Inpatient rehabilitation protocols Lyrica 50 MG daily at bedtime Monitor blood sugar and blood pressure Consult cardiology Plavix replacing aspirin since she was on aspirin before and suffered a stroke Monitor closely Loop recorder Increase insulin JENNA's Monitor emotional status and start Wellbutrin 100mg PO BID (1) CVA (cerebral vascular accident) (2) Cerebrovascular small vessel disease (3) Infarction of right basal ganglia (4) Diabetes (5) Unstable angina (6) CAD (coronary artery disease) (7) HTN (hypertension) (8) Presence of stent in coronary artery (9) Smoker MIYA CASTILLO DO Sep 11, 2018 11:31
--- NOTE | 2018-09-11 11:34 | Cardiology Progress Note ---
Cardiology SOAP Progress Note Subjective: No cardiac complaints. Objective: I&O/Vital Signs 09/11/18 05:39 Temp 97.0 Pulse 77 Resp 18 B/P (MAP) 91/63 (72) Pulse Ox 94 O2 Delivery Room Air 09/11/18 00:00 Intake Total 1450 ml Balance 1450 ml Weight (Pounds): 166 Weight (Ounces): 0.0 Weight (Calculated Kilograms): 75.273365 Constitutional: appears stated age, AAO x 3; No apparent distress; well- developed, well-nourished Respiratory: No accessory muscle use, No respiratory distress, No chest tender, No chest expansion is symmetric; chest is bilaterally symmetric; No lungs clear to percussion; lungs clear to auscultation; No crackles, No rhonchi, No rales, No stridor, No wheezing, No pleural rub, No other Cardiovascular: regular rate-rhythm; No irregularly irregular, No extra beats, No parasternal heave is noted, No JVD, No edema, No bradycardia, No tachycardia, No point of maximal impulse, No cardiac thrills are palpable; S1 and S2; No gallop/S3, No gallop/S4, No diastolic murmur, No systolic murmur, No friction rub, No click, No other Gastrointestional: No tender, No soft, No round, No distended, No pulsatile mass, No organomegaly, No guarding, No rebound, No tenderness, No hernia, No mass, No audible bowel sounds, No abnormal bowel sounds, No abdominal bruits, No spleenomegaly, No other Extremities: No normal range of motion, No non-tender, No normal inspection, No pedal edema, No calf tenderness, No normal capillary refill, No pelvis stable, No calf tenderness, No inflammation, No pedal edema, No slow capillary refill, No swelling, No other, No abrasion, No clubbing, No cyanosis, No ecchymosis, No laceration, No no lower extremity edema bilateral, No significant edema, No tenderness, No wound Neurologic/Psychiatric: alert, normal mood/affect, oriented x 3 Skin: No normal color, No warm/dry, No cyanosis, No cool, No diaphoresis, No damp, No ecchymosis, No jaundice, No mottled, No pallor, No rash, No tattoos/piercings, No ulcerations, No rash on exposed areas, No ulcerations on exposed areas, No other Results/Procedures: Labs Laboratory Tests 09/10/18 15:18: Glucometer 160H 09/10/18 20:31: Glucometer 195H 09/11/18 05:28: Glucometer 159H 09/11/18 10:52: Glucometer 194H A/P: Assessment/Dx: Right basal ganglia stroke, cryptogenic stroke, History of CAD/PCI. Plan: Negative workup for etiology of stroke. Stroke has been confirmed on MRI. Bilateral carotid ultrasound is negative. Telemetry negative for any arrhythmias. Echocardiogram was negative for any intracardiac shunting. Diagnosis is likely cryptogenic stroke. Long-term surveillance for atrial fibrillation is recommended with an implantable loop recorder. I have discussed at length with the patient and informed consent taken. implantable loop recorder done 09/08/2018. Patient is on Plavix for CAD. Will also require statin therapy. Thank you for your consultation. Please call me if you have any questions. Joe Awad MD, FACP, FACC, FSCAI, FHRS, CCDS Interventional Cardiology Cardiac Electrophysiology Vascular Medicine and Endovascular Interventions Keyon AWAD MD Sep 11, 2018 11:34 am
[2018-09-11] MEDS: buPROPion SR 100 MG (WELLBUTRIN SR) TAB PO SCH ×2 (12:29→20:09)
[2018-09-11 17:08] VITALS: BP 93/56
[2018-09-11] MEDS: ATORVASTATIN 80 MG (LIPITOR) TABLET PO SCH (20:08)
[2018-09-11] MEDS: PREGABALIN 50 MG (LYRICA) CAP PO SCH (20:08)
[2018-09-11] MEDS: ACETAMINOPHEN 325 MG TABLET PO PRN (20:08)
[2018-09-12 05:04] VITALS: BP 97/58
[2018-09-12] MEDS: inSUlin ASPART (NovoLOG) 1 UNIT/0.01 ML (CHARGE PER UNIT) SC SCH ×7 (05:36→21:24)
--- NOTE | 2018-09-12 07:31 | Occupational Ther Daily Note ---
OT Current Status-Daily Note Subjective Pt alert, sitting EOB. Pt agrees to therapy. No c/o pain at this time. Mental Status/Objective Patient Orientation: Person, Place, Time, Situation Therapy Code Descriptions/Definitions Functional Evangeline Measure: 0=Not Assessed/NA 4=Minimal Assistance 1=Total Assistance 5=Supervision or Setup 2=Maximal Assistance 6=Modified Evangeline 3=Moderate Assistance 7=Complete Evangeline ADL-Treatment Sitting EOB, pt able to open packages/containers then use regular utensils to eat. Then ambulated to bathroom using FWW. Transferred to toilet using FWW and grabbars (mod I), toileting using FWW and grabbars (mod I). Transferred into shower using FWW, grabbars and shower bench (mod I). Retrieved clothing and transported to bathroom (mod I), pt able to complete all dressing by self. Pt ambulated to sink to complete grooming, (mod I). Pt ambulated to large shower room using FWW, SBA. Completed tub bench transfer, SBA. CGA and verbal cues, instructions, to step into tub using grabbars and FWW. Therapy Code Descriptions/Definitions Functional Evangeline Measure: 0=Not Assessed/NA 4=Minimal Assistance 1=Total Assistance 5=Supervision or Setup 2=Maximal Assistance 6=Modified Evangeline 3=Moderate Assistance 7=Complete Evangeline Therapy Quality Codes: 6 Independent with activity with or without an assistive device 5 Patient requires set up or clean up by helper. Patient completes activity by themselves 4 Supervision or touching assist (CGA). [place] provide cues , steadying assist 3 The helper provides less than half the effort to complete the activity 2 The helper provides more than half the effort to complete the activity 1 Dependent. The helper does all the effort to complete an activity 7 Patient refused to complete or attempt activity 9 The patient did not perform the activity before the current illness or injury 88 Not attempted due to Medical conditions or safety concerns Eating (FIM): 7 Eating (QC): 6 Grooming (FIM): 6 Oral Hygiene (QC): 6 Bathing (FIM): 6 Bathing Location: L Arm, R Arm, L Upper Leg, R Upper Leg, L Lower Leg (including foot), R Lower Leg (including foot), Chest, Abdomen, Buttocks, Perineal Area Shower/Bathe Self (QC): 6 Upper Body (FIM): 6 Upper Body Dressing (QC): 6 Lower Body Dressing (FIM): 6 Lower Body Dressing (QC): 6 On/Off Footwear (QC): 6 Toileting (FIM): 6 Toileting Hygiene (QC): 6 Transfers (B, C, W/C) (FIM): 6 Toilet/Commode Transfer (FIM): 6 Toilet Transfer (QC): 6 Tub Transfer(FIM): 4 Shower Transfer(FIM): 6 Other Treatment Pt completed bilateral fine motor exercises to increase strength and coordination for daily functional tasks. Pt is progressing with L hand frank varghese and is demonstrating more strength and coordination with skills. After therapy, pt sitting in recliner with call light/phone in reach. All needs met in room. OT Short Term Goals Short Term Goals Time Frame: Sep 14, 2018 Bathing(FIM): 5 Lower Body Dressing(FIM): 5 Toileting(FIM): 5 Toilet/Commode Transfer(FIM): 5 Shower Transfer(FIM): 5 Additional Short Term Goals: 1-Demonstrate ADL Tasks, 2-Verbalize Understanding, 3-ImproveStrength/Marco Antonio 1=Demonstrate adherence to instructed precautions during ADL tasks. 2=Patient will verbalize/demonstrate understanding of assistive devices/ modifications for ADL. 3=Patient will improve strength/tolerance for activity to enable patient to perform ADL's. OT Insurance Territory Manager Goals Retirement Goals Time Frame: Sep 28, 2018 Eating (FIM): 6 Eating (QC): 6 Groomin Oral Hygiene (QC): 6 Bathing(FIM): 6 Shower/Bathe Self (QC): 6 Upper Body Dressing(FIM): 6 Upper Body Dressing (QC): 6 Lower Body Dressing(FIM): 6 Lower Body Dressing (QC): 6 On/Off Footwear (QC): 6 Toileting(FIM): 6 Toileting Hygiene (QC): 6 Toilet/Commode Transfer(FIM): 6 Toilet/Commode Transfer (QC): 6 Shower Transfer(FIM): 6 Additional Goals: 1-Demonstrate ADL Tasks, 2-Verbalize Understanding, 3- ImproveStrength/Marco Antonio 1=Demonstrate adherence to instructed precautions during ADL tasks. 2=Patient will verbalize/demonstrate understanding of assistive devices/modifications for ADL. 3=Patient will improve strength/tolerance for activity to enable patient to perform ADL's. OT Education/Plan Problem List/Assessment Assessment: Restricted Funct UE ROM Discharge Recommendations Plan/Recommendations: Continue POC Treatment Plan/Plan of Care Patient would benefit from OT for education, treatment and training to promote independence in ADL's, mobility, safety and/or upper extremity function for ADL's. Plan of Care: ADL Retraining, Functional Mobility, Group Exercise/Act as Ind, UE Funct Exercise/Act, UE Neuromus Re-Ed/Coord Treatment Duration: Sep 28, 2018 Frequency: 5 times per week Estimated Hrs Per Day: 1.5 hours per day Agreement: Yes Rehab Potential: Good Time/GCodes Start Time: 07:00 Stop Time: 08:00 Total Time Billed (hr/min): 60 Billed Treatment Time 1 visit-ADL 2 (25 min) EX 1 (20 min) FA 1 (15 min) BRANDON MCCLAIN Sep 12, 2018 07:31
--- NOTE | 2018-09-12 08:00 | NUR ---
DENIES DIFFICULTY IN SWALLOWING OR TALKING. FEELS IS MAKING GOOD PROGRESS IN LEFT EXTREMITIES. STATES LEFT ARM STRONGER THAN LEFT LEG. HAS DIFFICULTY WITH FINE MOTOR OF LEFT HAND. STATES NICODERM AND WELLBUTRIN HELPING AND STATES GOING TO QUIT SMOKING.
--- NOTE | 2018-09-12 08:23 | PM&R Progress Note ---
Subjective HPI/CC On Admission Date Seen by Provider: Sep 12, 2018 Time Seen by Provider: 08:30 CC: Right basal ganglia stroke HPI: This is a 58yoWF clinic pt of Dr. 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 Pt was admitted placed on TIA protocol and CT scan showed no evidence of hemorrhage pt was clos johnny monitored placed on Telemetry checked echocardiogram laboratory monitoring and close blood sugar control although HGB A1C was 12.2. MRI confirmed right basal ganglia infarct. Dr. Awad will se her in consultation for risk stratification of and embolic stroke and she will be maintained on telemetry an overall has seen an immense improvement in her symptoms but still having issues with walking in addition to fine motor skills of the left hand. Smoking cessation counseled and insulin initiation will be started and carotid ultrasound was reviewed which showed no stenosis, chest xray was negative but the MRI did show prior CVAs. She does want to treat her Neuropathy with Lyrica and we will start her on 50mg tonight. Subjective/Events-last exam Wellbutrin is ordered twice a day 100mg sustain release Walking very well Left hand is much improved PVC still maintained an loop recorder will evaluate any possibility of AF being the source of embolic stroke Fine motor skills need additional work but her hand is able to be extended now and not curled up Conferred with RN Reviewed therapy notes Review of Systems General: Fatigue Neurological: Weakness, Numbness, Incoordination Objective Exam Vital Signs Vital Signs Date Time Temp Pulse Resp B/P (MAP) Pulse Ox O2 Delivery O2 Flow Rate FiO2 09/12/18 18:27 Room Air 09/12/18 15:51 96.5 76 16 124/80 (95) 98 Capillary Refill : General Appearance: No Apparent Distress, WD/WN, Chronically ill HEENT: PERRL/EOMI, Normal ENT Inspection, Pharynx Normal, Moist Mucous Membranes Neck: Full Range of Motion, Normal Inspection, Non Tender, Supple Respiratory: Chest Non Tender, Lungs Clear, Normal Breath Sounds, No Accessory Muscle Use, No Respiratory Distress Cardiovascular: Regular Rate, Rhythm, No Edema, No Gallop, No JVD, No Murmur Gastrointestinal: Normal Bowel Sounds, No Organomegaly, No Pulsatile Mass, Non Tender, Soft Back: Normal Inspection, No CVA Tenderness, No Vertebral Tenderness Extremity: Normal Capillary Refill, Normal Inspection, Normal Range of Motion, Non Tender, No Calf Tenderness, No Pedal Edema Neurologic/Psychiatric: Alert, Oriented x3, No Motor/Sensory Deficits (decreased strength left upper and lower), Normal Mood/Affect, director 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 FIM Transfers Therapy Code Descriptions/Definitions Functional Bryant Measure: 0=Not Assessed/NA 4=Minimal Assistance 1=Total Assistance 5=Supervision or Setup 2=Maximal Assistance 6=Modified Bryant 3=Moderate Assistance 7=Complete Bryant Therapy Quality Codes: 6 Independent with activity with or without an assistive device 5 Patient requires set up or clean up by helper. Patient completes activity by themselves 4 Supervision or touching assist (CGA). [place] provide cues , steadying assist 3 The helper provides less than half the effort to complete the activity 2 The helper provides more than half the effort to complete the activity 1 Dependent. The helper does all the effort to complete an activity 7 Patient refused to complete or attempt activity 9 The patient did not perform the activity before the current illness or injury 88 Not attempted due to Medical conditions or safety concerns Transfers (B, C, W/C) (FIM): 6 Scootin Rollin Roll Left to Right (QC): 4 Supine to/from Sit: 6 Sit to/from Stand: 6 Sit to Lying (QC): 4 (CGA to guide her trunk) Sit to Stand (QC): 4 (min assist from several surfaces to include recliner, wc and park bench) Chair/Fzu-co-Inyiy Xfer(QC): 4 Bed to/from Chair: 6 Car Transfer (QC): 4 Gait Training Does the Patient Walk?: Yes Gait (FIM): 6 Distance (FIM): 3=150 ft (200x2) Distance: 150 ft x 5 Walk 10 feet (QC): 4 Walk 50 ft with 2 Turns(QC): 4 Walk 150 ft (QC): 88 Walking 10ft/uneven surface-QC: 4 Gait Level of Assist: 6 Gait Persons Needed: 0 Gait Assistive Device: FWW Wheelchair Training Does the Pt Use a Wheelchair?: Yes Wheelchair (FIM): 6 Wheelchair Distance: 3=150 ft (x1) Wheelchair Level of Assist: 6 Type of Wheelchair: Manual Stair Training Stair Training: Handrails/: uses walker Stairs (FIM): 1 #of Steps: 2 1 Step (curb) (QC): 4 4 Steps (QC): 88 12 Steps (QC): 88 Stairs: Pattern: Step to Level of Assist: 4 Balance Picking up an Object (QC): 88 Mental Status/Objective Comprehension: 7 Expression: 7 Social Interaction: 7 Problem Solvin Memory: 7 ADL-Treatment Feedin (pt reports feeding herself after set up) Eating (QC): 5 Groomin Oral Hygiene (QC): 4 Bathin Shower/Bathe Self (QC): 4 Upper Extremity Dressin Upper Body Dressing (QC): 5 Lower Extremity Dressin Lower Body Dressing (QC): 5 On/Off Footwear (QC): 4 Toiletin (CGA) Toileting Hygiene (QC): 4 Toilet/Commode Transfer: 4 (CGA) Shower: 4 Assessment/Plan Assessment and Plan Assess & Plan/Chief Complaint Assessment: Subacute right basal ganglia infarct with subsequent left sided weakness resid ual Diabetes mellitus now insulin-dependent. Lcq-mh-thywcli levels of 12.2 hemoglobin A1c Hypertension Smoker in midst of cessation Hyperlipidemia CAD previous stent Neuropathy Mild edema placing JENNA's Depression/Acute grief Plan: Inpatient rehabilitation protocols Lyrica 50 MG daily at bedtime Monitor blood sugar and blood pressure Consult cardiology Plavix replacing aspirin since she was on aspirin before and suffered a stroke Monitor closely Loop recorder Increase insulin JENNA's Monitor emotional status and started Wellbutrin 100mg PO BID (1) CVA (cerebral vascular accident) (2) Cerebrovascular small vessel disease (3) Infarction of right basal ganglia (4) Diabetes (5) Unstable angina (6) CAD (coronary artery disease) (7) HTN (hypertension) (8) Presence of stent in coronary artery (9) Smoker MIYA CASTILLO DO Sep 12, 2018 08:23
[2018-09-12] MEDS: CLOPIDOGREL 75 MG (PLAVIX) TABLET PO SCH (09:12)
[2018-09-12] MEDS: buPROPion SR 100 MG (WELLBUTRIN SR) TAB PO SCH ×2 (09:12→21:23)
[2018-09-12] MEDS: NICOTINE 14 MG (NICODERM) PATCH TD SCH (09:12)
[2018-09-12] MEDS: PATCH REMOVAL TP SCH (09:14)
--- NOTE | 2018-09-12 11:00 | NUR ---
Pastoral care visit.
--- NOTE | 2018-09-12 11:21 | Physical Therapy Daily Note ---
PT Daily Note-Current Subjective Pt. agrees to rx. States she had a great weekend and her family brought her a meal and escorted her outside in the courtyard to have a meal. Pt. is interested in trialing a cane for gait. Pain Location: No Pain Reported Mental Status Patient Orientation: Normal For Age Transfers Therapy Code Descriptions/Definitions Functional Curry Measure: 0=Not Assessed/NA 4=Minimal Assistance 1=Total Assistance 5=Supervision or Setup 2=Maximal Assistance 6=Modified [place] 3=Moderate Assistance 7=Complete Curry Therapy Quality Codes: 6 Independent with activity with or without an assistive device 5 Patient requires set up or clean up by helper. Patient completes activity by themselves 4 Supervision or touching assist (CGA). [place] provide cues , steadying assist 3 The helper provides less than half the effort to complete the activity 2 The helper provides more than half the effort to complete the activity 1 Dependent. The helper does all the effort to complete an activity 7 Patient refused to complete or attempt activity 9 The patient did not perform the activity before the current illness or injury 88 Not attempted due to Medical conditions or safety concerns Transfers (B, C, W/C) (FIM): 6 Scootin Rollin Supine to/from Sit: 6 Sit to/from Stand: 6 Bed to/from Chair: 6 Gait Training Does the Patient Walk?: Yes Gait (FIM): 5 Distance (FIM): 3=150 ft (x3) Gait Level of Assist: 5 Gait Persons Needed: 1 Gait Assistive Device: Cane Single Point instructed in use of hurry cane , CGA to SBA 150 ft, slow Exercises Supine Ex: Bridging, Ankle pumps, Pelvic tilt, Quad Set, Rolling, Glut sets, Heel Slides, Short Arc Quads, Scooting, Straight leg raise, Hip abd/add Supine Reps: 20 tall on knees, crawling, side abd, clam shells , prone hip ext NuStep Minutes: 10 NuStep Workload: 3 Neuromuscular PIERCE completed see in hard chart Assessment Current Status: Good Progress PT Short Term Goals Short Term Goals Time Frame: Sep 14, 2018 Gait (FIM): 5 PT Manager Material Goals Manager Material Goals PT Manager Material Goals Time Frame: Sep 21, 2018 Transfers (B,C,W/C) (FIM): 7 Sit to Lying (QC): 6 Lying-Sitting on Side/Bed(QC): 6 Sit to Stand (QC): 6 Rollin Roll Left to Right (QC): 6 Chair/Urz-yg-Dsmce Xfer(QC): 6 Car Transfer (QC): 6 Does the Patient Walk: Yes Gait (FIM): 6 Gait distance (FIM): 3=150 ft Walk 10 feet (QC): 6 Walk 10ft-Uneven Surface(QC): 6 Walk 50ft with 2 Turns (QC): 6 Walk 150 ft (QC): 6 Gait Assistive Device: FWW Does the Pt use WC or Scooter?: No Stairs (FIM): 6 1 Step (curb) (QC): 6 4 Steps (QC): 6 12 Steps (QC): 6 Picking up an Object (QC): 4 PT Plan Treatment/Plan Treatment Plan: Continue Plan of Care Treatment Plan: Bed Mobility, Education, Functional Activity Marco Antonio, Functional Strength, Group Therapy, Gait, Safety, Therapeutic Exercise, Transfers Treatment Duration: Sep 21, 2018 Frequency: At least 5 of 7 days/Wk (IRF) Estimated Hrs Per Day: 1.5 hours per day Patient and/or Family Agrees t: Yes Safety Risks/Education Patient Education: Gait Training, Transfer Techniques, Correct Positioning, Disease Process, Safety Issues Teaching Recipient: Patient Teaching Methods: Demonstration, Discussion Response to Teaching: Verbalize Understanding, Return Demonstration, Reinforcement Needed Time/GCodes Time In: 1020 Time Out: 1120 Total Billed Treatment Time: 60 Total Billed Treatment 1,EX30m,NM20m,GT10m G Codes Necessary: ARAMIS Rider TOOL AND DIE ASSEMBLER Sep 12, 2018 11:21
--- NOTE | 2018-09-12 14:32 | Therapy Group Daily Note ---
Therapy Daily Group Note Patient Education Topic Exercises (benefit of exercise , strategies for modifying exercise for home) Exercises LE Seated Exercise, UE Exercise Session Ratio (pt:therapist): 4:1 Goal of Session: UE/LE Strengthing Goal Met for this Session: Yes Pt Benefit of Group: F/U Use of Strategies @Home, Increased Functional Strength, Socialization Other/Notes Pt. participated in group PT OT session . Pt. ambulated to from with SBA FWW. Pts introduced selves and and shared their 1st car and their memories of it. Pts. were educated on the benefits of exercise, as well as ways to modify exercises and add resistance at home etc. Pt. to room after and in chair. Call maldonado at hand. Start Time: 13:00 Stop Time: 14:10 Total Billed Treatment Time: 70 Total Billed Treatment 1,GRP ARAMIS LARA FINE SANDER Sep 12, 2018 14:32
[2018-09-12 15:51] VITALS: BP 124/80
--- NOTE | 2018-09-12 16:52 | NUR ---
WHOLESALE PARTS SALESPERSON met with therapy team to discuss patient's progress, although patient is progressing well she continues to struggle with balance and impulsivity. Following further discussion team recommends patient remain in ARU through the end of the week for further strengthening with recommendations of a day pass. Dr. Shaver is in agreement with this. WHOLESALE PARTS SALESPERSON sent updated clinical information to patients insurance provider requesting additional days.
--- NOTE | 2018-09-12 19:00 | NUR ---
STATES FEELS HAS PROGRESSED EVEN MORE TODAY.
--- NOTE | 2018-09-12 21:05 | Cardiology Progress Note ---
Cardiology SOAP Progress Note Subjective: No cardiac complaints Objective: I&O/Vital Signs 09/12/18 09/12/18 15:51 18:27 Temp 96.5 Pulse 76 Resp 16 B/P (MAP) 124/80 (95) Pulse Ox 98 O2 Delivery Room Air Room Air 09/12/18 00:00 Intake Total 1020 ml Balance 1020 ml Weight (Pounds): 167 Weight (Ounces): 0.0 Weight (Calculated Kilograms): 75.923228 Constitutional: appears stated age, AAO x 3; No apparent distress; well- developed, well-nourished Respiratory: No accessory muscle use, No respiratory distress, No chest tender, No chest expansion is symmetric; chest is bilaterally symmetric; No lungs clear to percussion; lungs clear to auscultation; No crackles, No rhonchi, No rales, No stridor, No wheezing, No pleural rub, No other Cardiovascular: regular rate-rhythm; No irregularly irregular, No extra beats, No parasternal heave is noted, No JVD, No edema, No bradycardia, No tachycardia, No point of maximal impulse, No cardiac thrills are palpable; S1 and S2; No gallop/S3, No gallop/S4, No diastolic murmur, No systolic murmur, No friction r ub, No click, No other Gastrointestional: No tender, No soft, No round, No distended, No pulsatile mass, No organomegaly, No guarding, No rebound, No tenderness, No hernia, No mass, No audible bowel sounds, No abnormal bowel sounds, No abdominal bruits, No spleenomegaly, No other Extremities: No normal range of motion, No non-tender, No normal inspection, No pedal edema, No calf tenderness, No normal capillary refill, No pelvis stable, No calf tenderness, No inflammation, No pedal edema, No slow capillary refill, No swelling, No other, No abrasion, No clubbing, No cyanosis, No ecchymosis, No laceration, No no lower extremity edema bilateral, No significant edema, No tenderness, No wound Neurologic/Psychiatric: alert, normal mood/affect, oriented x 3 Skin: No normal color, No warm/dry, No cyanosis, No cool, No diaphoresis, No damp, No ecchymosis, No jaundice, No mottled, No pallor, No rash, No tattoos/piercings, No ulcerations, No rash on exposed areas, No ulcerations on exposed areas, No other Results/Procedures: Labs Laboratory Tests 09/12/18 05:26: Glucometer 185H 09/12/18 11:04: Glucometer 208H 09/12/18 15:50: Glucometer 225H 09/12/18 20:45: Glucometer 196H A/P: Assessment/Dx: Right basal ganglia stroke, cryptogenic stroke, History of CAD/PCI. Plan: Negative workup for etiology of stroke. Stroke has been confirmed on MRI. Bilateral carotid ultrasound is negative. Telemetry negative for any arrhythmias. Echocardiogram was negative for any intracardiac shunting. Diagnosis is likely cryptogenic stroke. Long-term surveillance for atrial fibrillation is recommended with an implantable loop recorder. I have discussed at length with the patient and informed consent taken. implantable loop recorder done 09/08/2018. Patient is on Plavix for CAD. Will also require statin therapy. Thank you for your consultation. Please call me if you have any questions. Joe Awad MD, FACP, FACC, FSCAI, FHRS, CCDS Interventional Cardiology Cardiac Electrophysiology Vascular Medicine and Endovascular Interventions Keyon AWAD MD Sep 12, 2018 21:05
[2018-09-12] MEDS: ATORVASTATIN 80 MG (LIPITOR) TABLET PO SCH (21:22)
[2018-09-12] MEDS: ACETAMINOPHEN 325 MG TABLET PO PRN (21:23)
[2018-09-12] MEDS: PREGABALIN 50 MG (LYRICA) CAP PO SCH (21:23)
[2018-09-13 06:08] VITALS: BP 118/71
[2018-09-13] MEDS: inSUlin ASPART (NovoLOG) 1 UNIT/0.01 ML (CHARGE PER UNIT) SC SCH ×7 (06:14→21:48)
[2018-09-13] MEDS: ACETAMINOPHEN 325 MG TABLET PO PRN ×2 (06:14→20:33)
--- NOTE | 2018-09-13 07:00 | Occupational Ther Daily Note ---
OT Current Status-Daily Note Subjective Pt alert, lying in bed. Pt agrees to therapy. No c/o pain. Mental Status/Objective Patient Orientation: Person, Place, Time, Situation Therapy Code Descriptions/Definitions Functional [place] Measure: 0=Not Assessed/NA 4=Minimal Assistance 1=Total Assistance 5=Supervision or Setup 2=Maximal Assistance 6=Modified [place] 3=Moderate Assistance 7=Complete [place] Attachments: Other-See Comments (loop monitor) ADL-Treatment Pt agrees to shower. Pt retrieved clothing using FWW, no LOB noted, mod I. Pt transferred into shower (mod I) using grabbars, shower bench and FWW. Completed shower by self using shower bench, grabbar and hand held shower. Pt able to complete upper/lower body dressing by self using FWW in standing for stability while hiking pants over hips. Pt ambulated to sink to complete own grooming. Pt ambulated to large shower room and completed tub shower transfer by stepping in using grabbars and FWW, SBA with no LOB noted. Therapy Code Descriptions/Definitions Functional [place] Measure: 0=Not Assessed/NA 4=Minimal Assistance 1=Total Assistance 5=Supervision or Setup 2=Maximal Assistance 6=Modified [place] 3=Moderate Assistance 7=Complete [place] Therapy Quality Codes: 6 Independent with activity with or without an assistive device 5 Patient requires set up or clean up by helper. Patient completes activity by themselves 4 Supervision or touching assist (CGA). [place] provide cues , steadying assist 3 The helper provides less than half the effort to complete the activity 2 The helper provides more than half the effort to complete the activity 1 Dependent. The helper does all the effort to complete an activity 7 Patient refused to complete or attempt activity 9 The patient did not perform the activity before the current illness or injury 88 Not attempted due to Medical conditions or safety concerns Eating (FIM): 7 (Open containers/packages byself and uses regular utensils to eat.) Eating (QC): 6 Grooming (FIM): 6 Oral Hygiene (QC): 6 Bathing (FIM): 6 Bathing Location: L Arm, R Arm, L Upper Leg, R Upper Leg, L Lower Leg (including foot), R Lower Leg (including foot), Chest, Abdomen, Buttocks, Dominique marah Area Shower/Bathe Self (QC): 6 Upper Body (FIM): 6 Upper Body Dressing (QC): 6 Lower Body Dressing (FIM): 6 Lower Body Dressing (QC): 6 On/Off Footwear (QC): 6 Toileting (FIM): 6 Toileting Hygiene (QC): 6 Transfers (B, C, W/C) (FIM): 6 Toilet/Commode Transfer (FIM): 6 Toilet Transfer (QC): 6 Tub Transfer(FIM): 5 Shower Transfer(FIM): 6 Other Treatment Pt completed UE exercises to increase gross/fine motor strength for daily functional tasks. Nut/bolt task to increased B fine motor and coordination with UE strengthening against gravity. In-hand manipulation tasks to increase dexterity and coordination skills for daily functional tasks. After therapy, pt sitting in recliner with call light/phone in reach. All needs met in room. OT Short Term Goals Short Term Goals Time Frame: Sep 14, 2018 Bathing(FIM): 5 Lower Body Dressing(FIM): 5 Toileting(FIM): 5 Toilet/Commode Transfer(FIM): 5 Shower Transfer(FIM): 5 Additional Short Term Goals: 1-Demonstrate ADL Tasks, 2-Verbalize Understanding, 3-ImproveStrength/Marco Antonio 1=Demonstrate adherence to instructed precautions during ADL tasks. 2=Patient will verbalize/demonstrate understanding of assistive devices/modifica tions for ADL. 3=Patient will improve strength/tolerance for activity to enable patient to perform ADL's. OT [employer] Goals Half-Way Goals Time Frame: Sep 28, 2018 Eating (FIM): 6 Eating (QC): 6 Groomin Oral Hygiene (QC): 6 Bathing(FIM): 6 Shower/Bathe Self (QC): 6 Upper Body Dressing(FIM): 6 Upper Body Dressing (QC): 6 Lower Body Dressing(FIM): 6 Lower Body Dressing (QC): 6 On/Off Footwear (QC): 6 Toileting(FIM): 6 Toileting Hygiene (QC): 6 Toilet/Commode Transfer(FIM): 6 Toilet/Commode Transfer (QC): 6 Shower Transfer(FIM): 6 Additional Goals: 1-Demonstrate ADL Tasks, 2-Verbalize Understanding, 3- ImproveStrength/Marco Antonio 1=Demonstrate adherence to instructed precautions during ADL tasks. 2=Patient will verbalize/demonstrate understanding of assistive devices/modifications for ADL. 3=Patient will improve strength/tolerance for activity to enable patient to perform ADL's. OT Education/Plan Problem List/Assessment Assessment: Restricted Funct UE ROM Discharge Recommendations Plan/Recommendations: Continue POC Treatment Plan/Plan of Care Patient would benefit from OT for education, treatment and training to promote independence in ADL's, mobility, safety and/or upper extremity function for ADL's. Plan of Care: ADL Retraining, Functional Mobility, Group Exercise/Act as Ind, UE Funct Exercise/Act, UE Neuromus Re-Ed/Coord Treatment Duration: Sep 28, 2018 Frequency: 5 times per week Estimated Hrs Per Day: 1.5 hours per day Agreement: Yes Rehab Potential: Good Time/GCodes Start Time: 06:45 Stop Time: 08:15 Total Time Billed (hr/min): 90 Billed Treatment Time 1 visit-ADL 2 (30 min) FA 2 (30 min) EX 2 (30 min) BRANDON MCCLAIN Sep 13, 2018 07:00
--- NOTE | 2018-09-13 09:00 | PM&R Progress Note ---
Subjective HPI/CC On Admission Date Seen by Provider: Sep 13, 2018 Time Seen by Provider: 08:30 CC: Right basal ganglia stroke HPI: This is a 58yoWF clinic pt of Dr. 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 Pt was admitted placed on TIA protocol and CT scan showed no evidence of hemorrhage pt was clos johnny monitored placed on Telemetry checked echocardiogram laboratory monitoring and close blood sugar control although HGB A1C was 12.2. MRI confirmed right basal ganglia infarct. Dr. Awad will se her in consultation for risk stratification of and embolic stroke and she will be maintained on telemetry an overall has seen an immense improvement in her symptoms but still having issues with walking in addition to fine motor skills of the left hand. Smoking cessation counseled and insulin initiation will be started and carotid ultrasound was reviewed which showed no stenosis, chest xray was negative but the MRI did show prior CVAs. She does want to treat her Neuropathy with Lyrica and we will start her on 50mg tonight. Subjective/Events-last exam Pt interested in day pass Doing very well Walking with a walker and transition to a cane Left hand is much improved Not as tearful as she once was Wellbutrin is being tolerated well Conferred with RN Reviewed therapy notes Review of Systems Neurological: Weakness, Numbness, Incoordination Objective Exam Vital Signs Vital Signs Date Time Temp Pulse Resp B/P (MAP) Pulse Ox O2 Delivery O2 Flow Rate FiO2 09/13/18 15:49 96.6 82 16 126/78 (94) 99 Room Air Capillary Refill : General Appearance: No Apparent Distress, WD/WN, Chronically ill HEENT: PERRL/EOMI, Normal ENT Inspection, Pharynx Normal, Moist Mucous Membra alva Neck: Full Range of Motion, Normal Inspection, Non Tender, Supple Respiratory: Chest Non Tender, Lungs Clear, Normal Breath Sounds, No Accessory Muscle Use, No Respiratory Distress Cardiovascular: Regular Rate, Rhythm, No Edema, No Gallop, No JVD, No Murmur Gastrointestinal: Normal Bowel Sounds, No Organomegaly, No Pulsatile Mass, Non Tender, Soft Back: Normal Inspection, No CVA Tenderness, No Vertebral Tenderness Extremity: Normal Capillary Refill, Normal Inspection, Normal Range of Motion, Non Tender, No Calf Tenderness, No Pedal Edema Neurologic/Psychiatric: Alert, Oriented x3, No Motor/Sensory Deficits (decreased strength left upper and lower), Normal Mood/Affect, 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 FIM Transfers Therapy Code Descriptions/Definitions Functional [place] Measure: 0=Not Assessed/NA 4=Minimal Assistance 1=Total Assistance 5=Supervision or Setup 2=Maximal Assistance 6=Modified [place] 3=Moderate Assistance 7=Complete [place] Therapy Quality Codes: 6 Independent with activity with or without an assistive device 5 Patient requires set up or clean up by helper. Patient completes activity by themselves 4 Supervision or touching assist (CGA). [place] provide cues , steadying assist 3 The helper provides less than half the effort to complete the activity 2 The helper provides more than half the effort to complete the activity 1 Dependent. The helper does all the effort to complete an activity 7 Patient refused to complete or attempt activity 9 The patient did not perform the activity before the current illness or injury 88 Not attempted due to Medical conditions or safety concerns Transfers (B, C, W/C) (FIM): 6 Scootin Rollin Roll Left to Right (QC): 4 Supine to/from Sit: 6 Sit to/from Stand: 6 Sit to Lying (QC): 4 (CGA to guide her trunk) Sit to Stand (QC): 4 (min assist from several surfaces to include recliner, wc and park bench) Chair/Rmh-kr-Fraur Xfer(QC): 4 Bed to/from Chair: 6 Car Transfer (QC): 4 Gait Training Does the Patient Walk?: Yes Gait (FIM): 5 Distance (FIM): 3=150 ft (x3) Distance: 150 ft x 5 Walk 10 feet (QC): 4 Walk 50 ft with 2 Turns(QC): 4 Walk 150 ft (QC): 88 Walking 10ft/uneven surface-QC: 4 Gait Level of Assist: 5 Gait Persons Needed: 1 Gait Assistive Device: Cane Single Point Wheelchair Training Does the Pt Use a Wheelchair?: Yes Wheelchair (FIM): 6 Wheelchair Distance: 3=150 ft (x1) Wheelchair Level of Assist: 6 Type of Wheelchair: Manual Stair Training Stair Training: Handrails/: uses walker Stairs (FIM): 1 #of Steps: 2 1 Step (curb) (QC): 4 4 Steps (QC): 88 12 Steps (QC): 88 Stairs: Pattern: Step to Level of Assist: 4 Balance Picking up an Object (QC): 88 Mental Status/Objective Comprehension: 7 Expression: 7 Social Interaction: 7 Problem Solvin Memory: 7 ADL-Treatment Feedin (Open containers/packages byself and uses regular utensils to eat.) Eating (QC): 6 Groomin Oral Hygiene (QC): 6 Bathin Bathing Location: L Arm, R Arm, L Upper Leg, R Upper Leg, L Lower Leg (including foot), R Lower Leg (including foot), Chest, Abdomen, Buttocks, Perineal Area Shower/Bathe Self (QC): 6 Upper Extremity Dressin Upper Body Dressing (QC): 6 Lower Extremity Dressin Lower Body Dressing (QC): 6 On/Off Footwear (QC): 6 Toiletin Toileting Hygiene (QC): 6 Toilet/Commode Transfer: 6 Toilet Transfer (QC): 6 Tub: 4 Shower: 6 Assessment/Plan Assessment and Plan Assess & Plan/Chief Complaint Assessment: Subacute right basal ganglia infarct with subsequent left sided weakness residual Diabetes mellitus now insulin-dependent. Vld-tk-[id number] levels of 12.2 hemoglobin A1c Hypertension Smoker in midst of cessation Hyperlipidemia CAD previous stent Neuropathy Mild edema placing JENNA's Depression/Acute grief Plan: Inpatient rehabilitation protocols Lyrica 50 MG daily at bedtime Monitor blood sugar and blood pressure Consult cardiology Plavix replacing aspirin since she was on aspirin before and suffered a stroke Monitor closely Loop recorder placed Increase insulin JENNA's Monitor emotional status and started Wellbutrin 100mg PO BID (1) CVA (cerebral vascular accident) (2) Cerebrovascular small vessel disease (3) Infarction of right basal ganglia (4) Diabetes (5) Unstable angina (6) CAD (coronary artery disease) (7) HTN (hypertension) (8) Presence of stent in coronary artery (9) Smoker MIYA CASTILLO DO Sep 13, 2018 09:00
--- NOTE | 2018-09-13 09:12 | Physical Therapy Daily Note ---
PT Daily Note-Current Subjective Pt sitting in recliner upon arrival. Pt agrees to PT. Pt reports with excitement that she feels better and actual was able to put her hair up today. Pain Location: No Pain Reported Mental Status Patient Orientation: Person, Place, Time, Situation Transfers Therapy Code Descriptions/Definitions Functional [place] Measure: 0=Not Assessed/NA 4=Minimal Assistance 1=Total Assistance 5=Supervision or Setup 2=Maximal Assistance 6=Modified [place] 3=Moderate Assistance 7=Complete [place] Therapy Quality Codes: 6 Independent with activity with or without an assistive device 5 Patient requires set up or clean up by helper. Patient completes activity by themselves 4 Supervision or touching assist (CGA). [place] provide cues , steadying assist 3 The helper provides less than half the effort to complete the activity 2 The helper provides more than half the effort to complete the activity 1 Dependent. The helper does all the effort to complete an activity 7 Patient refused to complete or attempt activity 9 The patient did not perform the activity before the current illness or in jury 88 Not attempted due to Medical conditions or safety concerns Scootin Sit to/from Stand: 6 Sit to Stand (QC): 6 Weight Bearing Full Weight Bearing Full Weight Bearing Gait Training Does the Patient Walk?: Yes Gait (FIM): 6 Distance (FIM): 3=150 ft Distance: 150' Walk 10 feet (QC): 6 Walk 50 ft with 2 Turns(QC): 6 Walk 150 ft (QC): 6 Gait Level of Assist: 6 Gait Persons Needed: 1 Gait Assistive Device: FWW Pt is Mod I with FWW but SBA for some instability with SPC. Pt will continue to work with PT on SPC but is Ad ruben in room with FWW. Wheelchair Training Does the Pt Use a Wheelchair?: No Exercises NuStep Minutes: 15 NuStep Workload: 6 Treatments Pt transfers to standing then ambulates in hallway using FWW. 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 Pt takes short RB before completing Seated Ex. Pt ambulates in hallway using SPC ~75'. Pt resting in recliner as RECOVERY RN goes over HEP. Pt has all needs met at end of tx., call light next to pt. Assessment Current Status: Good Progress Pt continues to make progress with strength and mobility, now being Ad ruben in room. Pt will continue to work on ambulation with SPC. PT Short Term Goals Short Term Goals Time Frame: Sep 14, 2018 Gait (FIM): 5 PT Scouring Machine Operator Goals Scouring Machine Operator Goals PT Scouring Machine Operator Goals Time Frame: Sep 21, 2018 Transfers (B,C,W/C) (FIM): 7 Sit to Lying (QC): 6 Lying-Sitting on Side/Bed(QC): 6 Sit to Stand (QC): 6 Rollin Roll Left to Right (QC): 6 Chair/Xby-cy-Lfizo Xfer(QC): 6 Car Transfer (QC): 6 Does the Patient Walk: Yes Gait (FIM): 6 Gait distance (FIM): 3=150 ft Walk 10 feet (QC): 6 Walk 10ft-Uneven Surface(QC): 6 Walk 50ft with 2 Turns (QC): 6 Walk 150 ft (QC): 6 Gait Assistive Device: FWW Does the Pt use WC or Scooter?: No Stairs (FIM): 6 1 Step (curb) (QC): 6 4 Steps (QC): 6 12 Steps (QC): 6 Picking up an Object (QC): 4 PT Plan Problem List Problem List: Activity Tolerance Treatment/Plan Treatment Plan: Continue Plan of Care Treatment Plan: Bed Mobility, Education, Functional Activity Marco Antonio, Functional Strength, Group Therapy, Gait, Safety, Therapeutic Exercise, Transfers Treatment Duration: Sep 21, 2018 Frequency: At least 5 of 7 days/Wk (IRF) Estimated Hrs Per Day: 1.5 hours per day Patient and/or Family Agrees t: Yes Safety Risks/Education Patient Education: Gait Training, Issued Written HEP, Correct Positioning, Safety Issues Teaching Recipient: Patient Teaching Methods: Discussion Response to Teaching: Verbalize Understanding Time/GCodes Time In: 815 Time Out: 915 Total Billed Treatment Time: 60 Total Billed Treatment 1, GT (15m), EX x2 (30m) & FA (15m) G Codes Necessary: JOAN Garcia PTA Sep 13, 2018 09:12
[2018-09-13] MEDS: NICOTINE 14 MG (NICODERM) PATCH TD SCH (09:34)
[2018-09-13] MEDS: PATCH REMOVAL TP SCH (09:34)
[2018-09-13] MEDS: buPROPion SR 100 MG (WELLBUTRIN SR) TAB PO SCH ×2 (09:34→20:33)
[2018-09-13] MEDS: CLOPIDOGREL 75 MG (PLAVIX) TABLET PO SCH (09:34)
--- NOTE | 2018-09-13 13:59 | Physical Therapy Daily Note ---
PT Daily Note-Current Subjective Pt sitting in recliner visiting with family upon arrival. Pt agrees to PT. Pain Location: No Pain Reported Mental Status Patient Orientation: Person, Place, Time, Situation Transfers Therapy Code Descriptions/Definitions Functional [place] Measure: 0=Not Assessed/NA 4=Minimal Assistance 1=Total Assistance 5=Supervision or Setup 2=Maximal Assistance 6=Modified [place] 3=Moderate Assistance 7=Complete [place] Therapy Quality Codes: 6 Independent with activity with or without an assistive device 5 Patient requires set up or clean up by helper. Patient completes activity by themselves 4 Supervision or touching assist (CGA). [place] provide cues , steadying assist 3 The helper provides less than half the effort to complete the activity 2 The helper provides more than half the effort to complete the activity 1 Dependent. The helper does all the effort to complete an activity 7 Patient refused to complete or attempt activity 9 The patient did not perform the activity before the current illness or injury 88 Not attempted due to Medical conditions or safety concerns Scootin Rollin Roll Left to Right (QC): 6 Supine to/from Sit: 6 Sit to/from Stand: 6 Sit to Lying (QC): 6 Sit to Stand (QC): 6 Weight Bearing Full Weight Bearing Full Weight Bearing Gait Training Does the Patient Walk?: Yes Gait (FIM): 6 Distance (FIM): 3=150 ft Distance: 150' Walk 10 feet (QC): 6 Walk 50 ft with 2 Turns(QC): 6 Walk 150 ft (QC): 6 Gait Level of Assist: 6 Gait Persons Needed: 1 Gait Assistive Device: FWW Pt again practices with SPC in hallway at close SBA, Mod I with FWW. Wheelchair Training Does the Pt Use a Wheelchair?: No Stair Training Stair Training: Handrails/: 2 handrails #of Steps: 4 1 Step (curb) (QC): 5 4 Steps (QC): 5 Stairs: Pattern: Step to Level of Assist: 5 Pt attempts both using handrails and with SPC. Pt is SBA with handrails but CGA-Min A with SPC due to sequencing and balance. Pt will continue to work on this before D/C. Exercises Supine Ex: Ankle pumps, Quad Set, Glut sets, Heel Slides, Short Arc Quads, Straight leg raise, Hip abd/add Supine Reps: 15 Treatments Pt transfers to standing and ambulates in hallway to Therapy Gym. Pt completes Supine Ex on Therapy Mat. After short RB, Pt completes 2 sets of steps. Pt ambulates back to room using SPC for more practice. Pt resting in recliner with all needs met, call light next to pt. Assessment Current Status: Good Progress Pt will continue to work on ambulating with SPC and stairs before D/C. PT Short Term Goals Short Term Goals Time Frame: Sep 14, 2018 Gait (FIM): 5 PT Jail Goals Seasonal Package Handler Goals PT Seasonal Package Handler Goals Time Frame: Sep 21, 2018 Transfers (B,C,W/C) (FIM): 7 Sit to Lying (QC): 6 Lying-Sitting on Side/Bed(QC): 6 Sit to Stand (QC): 6 Rollin Roll Left to Right (QC): 6 Chair/Mqv-oe-Jveqq Xfer(QC): 6 Car Transfer (QC): 6 Does the Patient Walk: Yes Gait (FIM): 6 Gait distance (FIM): 3=150 ft Walk 10 feet (QC): 6 Walk 10ft-Uneven Surface(QC): 6 Walk 50ft with 2 Turns (QC): 6 Walk 150 ft (QC): 6 Gait Assistive Device: FWW Does the Pt use WC or Scooter?: No Stairs (FIM): 6 1 Step (curb) (QC): 6 4 Steps (QC): 6 12 Steps (QC): 6 Picking up an Object (QC): 4 PT Plan Problem List Problem List: Activity Tolerance, Safety, Gait Treatment/Plan Treatment Plan: Continue Plan of Care Treatment Plan: Bed Mobility, Education, Functional Activity Marco Antonio, Functional Strength, Group Therapy, Gait, Safety, Therapeutic Exercise, Transfers Treatment Duration: Sep 21, 2018 Frequency: At least 5 of 7 days/Wk (IRF) Estimated Hrs Per Day: 1.5 hours per day Patient and/or Family Agrees t: Yes Safety Risks/Education Patient Education: Gait Training, Steps, Correct Positioning, Safety Issues Teaching Recipient: Patient Teaching Methods: Discussion Response to Teaching: Verbalize Understanding Time/GCodes Time In: 1300 Time Out: 1330 Total Billed Treatment Time: 30 Total Billed Treatment 1, EX (15m) & GT (15m) G Codes Necessary: No JOAN PLASENCIA CASE MANAGEMENT DIRECTOR Sep 13, 2018 13:59
[2018-09-13 15:49] VITALS: BP 126/78
--- NOTE | 2018-09-13 20:12 | Cardiology Progress Note ---
Cardiology SOAP Progress Note Subjective: No cardiac complaints. Objective: I&O/Vital Signs 09/13/18 09/13/18 09:00 15:49 Temp 96.6 Pulse 82 Resp 16 B/P (MAP) 126/78 (94) Pulse Ox 99 O2 Delivery Room Air Room Air 09/13/18 00:00 Intake Total 850 ml Balance 850 ml Weight (Pounds): 167 Weight (Ounces): 0.0 Weight (Calculated Kilograms): [id number] Constitutional: appears stated age, AAO x 3; No apparent distress; well- developed, well-nourished Respiratory: No accessory muscle use, No respiratory distress, No chest tender, No chest expansion is symmetric; chest is bilaterally symmetric; No lungs clear to percussion; lungs clear to auscultation; No crackles, No rhonchi, No rales, No stridor, No wheezing, No pleural rub, No other Cardiovascular: regular rate-rhythm; No irregularly irregular, No extra beats, No parasternal heave is noted, No JVD, No edema, No bradycardia, No tachycardia, No point of maximal impulse, No cardiac thrills are palpable; S1 and S2; No gallop/S3, No gallop/S4, No diastolic murmur, No systolic murmur, No friction ru b, No click, No other Gastrointestional: No tender, No soft, No round, No distended, No pulsatile mass, No organomegaly, No guarding, No rebound, No tenderness, No hernia, No mass, No audible bowel sounds, No abnormal bowel sounds, No abdominal bruits, No spleenomegaly, No other Extremities: No normal range of motion, No non-tender, No normal inspection, No pedal edema, No calf tenderness, No normal capillary refill, No pelvis stable, No calf tenderness, No inflammation, No pedal edema, No slow capillary refill, No swelling, No other, No abrasion, No clubbing, No cyanosis, No ecchymosis, No laceration, No no lower extremity edema bilateral, No significant edema, No tenderness, No wound Neurologic/Psychiatric: alert, normal mood/affect, oriented x 3 Skin: No normal color, No warm/dry, No cyanosis, No cool, No diaphoresis, No damp, No ecchymosis, No jaundice, No mottled, No pallor, No rash, No tattoos/piercings, No ulcerations, No rash on exposed areas, No ulcerations on exposed areas, No other Results/Procedures: Labs Laboratory Tests 09/12/18 20:45: Glucometer 196H 09/13/18 05:54: Glucometer 108 09/13/18 10:44: Glucometer 191H 09/13/18 15:47: Glucometer 100 A/P: Assessment/Dx: Right basal ganglia stroke, cryptogenic stroke, History of CAD/PCI. Plan: Inpatient rehabilitation - consistent improvement. Negative workup for etiology of stroke. Stroke has been confirmed on MRI. Bilateral carotid ultrasound is negative. Telemetry negative for any arr hythmias. Echocardiogram was negative for any intracardiac shunting. Diagnosis is likely cryptogenic stroke. Long-term surveillance for atrial fibrillation is recommended with an implantable loop recorder. I have discussed at length with the patient and informed consent taken. implantable loop recorder done 09/08/2018. Patient is on Plavix for CAD. Will also require statin therapy. Thank you for your consultation. Please call me if you have any questions. Joe Awad MD, FACP, FACC, FSCAI, FHRS, CCDS Interventional Cardiology Cardiac Electrophysiology Vascular Medicine and Endovascular Interventions Keyon AWAD MD Sep 13, 2018 20:12
[2018-09-13] MEDS: ATORVASTATIN 80 MG (LIPITOR) TABLET PO SCH (20:33)
[2018-09-13] MEDS: PREGABALIN 50 MG (LYRICA) CAP PO SCH (20:33)
--- NOTE | 2018-09-14 03:50 | NUR ---
ADULT NEUROPSYCHOLOGIST met with patient to review team conference summary. As patient is performing most therapy activities with modified independence with use of a large based quad cane and balance has improved, team is recommending patient proceed with discharge home on 82. This will allow patient to complete day pass this evening and report back on any concerns or areas in need of improvement. Patient is agreeable to this plan. Patient would benefit from further outpatient PT and OT, patient is also agreeable to this and prefers to utilize [facility] outpatient. Patient does not possess a large based quad cane at home; therefore, ADULT NEUROPSYCHOLOGIST has requested order from Dr. Shaver and sent to [facility] for delivery prior to discharge. ADULT NEUROPSYCHOLOGIST will continue to follow.
[2018-09-14 05:30] VITALS: BP 89/78
[2018-09-14 05:35] LABS: BASOPHILS # (AUTO) 0.1 10^3/uL (0.0-0.1); BASOPHILS % (AUTO) 1 % (0-10); EOSINOPHILS # (AUTO) 0.3 10^3/uL (0.0-0.3); EOSINOPHILS % (AUTO) 4 % (0-10); HEMATOCRIT 41 % (35-52); HEMOGLOBIN 13.4 G/DL (11.5-16.0); LYMPHOCYTES # (AUTO) 2.9 X 10^3 (1.0-4.0); LYMPHOCYTES % (AUTO) 38 % (12-44); MEAN CORPUSCULAR HEMOGLOBIN 30 PG (25-34); MEAN CORPUSCULAR HGB CONC 33 G/DL (32-36); MEAN CORPUSCULAR VOLUME 91 FL (80-99); MEAN PLATELET VOLUME 10.9 FL (7.4-10.4); MONOCYTES # (AUTO) 0.8 X 10^3 (0.0-1.0); MONOCYTES % (AUTO) 11 % (0-12); NEUTROPHILS # (AUTO) 3.6 X 10^3 (1.8-7.8); NEUTROPHILS % (AUTO) 47 % (42-75); PLATELET COUNT 212 10^3/uL (130-400); RED CELL DISTRIBUTION WIDTH 13.2 % (10.0-14.5); WHITE BLOOD COUNT 7.6 10^3/uL (4.3-11.0)
[2018-09-14 05:52] LABS: ALANINE AMINOTRANSFERASE 35 U/L (0-55); ALBUMIN 3.3 GM/DL (3.2-4.5); ALKALINE PHOSPHATASE 90 U/L (40-136); BILIRUBIN,TOTAL 0.3 MG/DL (0.1-1.0); BUN/CREATININE RATIO 32; CALCIUM 8.9 MG/DL (8.5-10.1); CARBON DIOXIDE 21 MMOL/L (21-32); CHLORIDE 110 MMOL/L (98-107); CREATININE SERUM 0.68 MG/DL (0.60-1.30); GFR ESTIMATED > 60; GLUCOSE 126 MG/DL (70-105); SODIUM 143 MMOL/L (135-145); TOTAL PROTEIN 5.4 GM/DL (6.4-8.2)
[2018-09-14] MEDS: inSUlin ASPART (NovoLOG) 1 UNIT/0.01 ML (CHARGE PER UNIT) SC SCH ×7 (06:03→22:54)
[2018-09-14] MEDS: ACETAMINOPHEN 325 MG TABLET PO PRN ×2 (07:01→22:53)
--- NOTE | 2018-09-14 08:59 | PM&R Progress Note ---
Subjective HPI/CC On Admission Date Seen by Provider: Sep 14, 2018 Time Seen by Provider: 08:30 CC: Right basal ganglia stroke HPI: This is a 58yoWF clinic pt of Dr. 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 Pt was admitted placed on TIA protocol and CT scan showed no evidence of hemorrhage pt was closely monitored placed on Telemetry checked echocardiogram laboratory monitoring and close blood sugar control although HGB A1C was 12.2. MRI confirmed right basal ganglia infarct. Dr. Awad will se her in consultation for risk stratification of and embolic stroke and she will be maintained on telemetry an overall has seen an immense improvement in her symptoms but still having issues with walking in addition to fine motor skills of the left hand. Smoking cessation counseled and insulin initiation will be started and carotid ultrasound was reviewed which showed no stenosis, chest xray was negative but the MRI did show prior CVAs. She does want to treat her Neuropathy with Lyrica a nd we will start her on 50mg tonight. Subjective/Events-last exam Once a day pass to go to [facility] tonight Now up ad-ruben in room Left hand is being worked with therapy in addition to given home exercises Labs obtained and normal Blood sugars are better controlled Has no hesitations about staying on insulin when she's discharged Conferred with RN Reviewed therapy notes Review of Systems Neurological: Weakness, Numbness, Incoordination Objective Exam Vital Signs Vital Signs Date Time Temp Pulse Resp B/P (MAP) Pulse Ox O2 Delivery O2 Flow Rate FiO2 09/14/18 17:41 97.8 79 18 101/69 (80) 95 Room Air Capillary Refill : General Appearance: No Apparent Distress, WD/WN, Chronically ill HEENT: PERRL/EOMI, Normal ENT Inspection, Pharynx Normal, Moist Mucous Membranes Neck: Full Range of Motion, Normal Inspection, Non Tender, Supple Respiratory: Chest Non Tender, Lungs Clear, Normal Breath Sounds, No Accessory Muscle Use, No Respiratory Distress Cardiovascular: Regular Rate, Rhythm, No Edema, No Gallop, No JVD, No Murmur Gastrointestinal: Normal Bowel Sounds, No Organomegaly, No Pulsatile Mass, Non Tender, Soft Back: Normal Inspection, No CVA Tenderness, No Vertebral Tenderness Extremity: Normal Capillary Refill, Normal Inspection, Normal Range of Motion, Non Tender, No Calf Tenderness, No Pedal Edema Neurologic/Psychiatric: Alert, Oriented x3, No Motor/Sensory Deficits (decreased strength left upper and lower), Normal Mood/Affect, patient manager II-XII Norm as Tested, Motor Weakness (left sided weakness now improved) Skin: Normal Color, Warm/Dry Lymphatic: No Adenopathy Results/Procedures Lab Laboratory Tests 09/14/18 04:56 Patient resulted labs reviewed. FIM Transfers Therapy Code Descriptions/Definitions Functional [place] Measure: 0=Not Assessed/NA 4=Minimal Assistance 1=Total Assistance 5=Supervision or Setup 2=Maximal Assistance 6=Modified [place] 3=Moderate Assistance 7=Complete [place] Therapy Quality Codes: 6 Independent with activity with or without an assistive device 5 Patient requires set up or clean up by helper. Patient completes activity by themselves 4 Supervision or touching assist (CGA). [place] provide cues , steadying assist 3 The helper provides less than half the effort to complete the activity 2 The helper provides more than half the effort to complete the activity 1 Dependent. The helper does all the effort to complete an activity 7 Patient refused to complete or attempt activity 9 The patient did not perform the activity before the current illness or inju ry 88 Not attempted due to Medical conditions or safety concerns Transfers (B, C, W/C) (FIM): 6 Scootin Rollin Roll Left to Right (QC): 6 Supine to/from Sit: 6 Sit to/from Stand: 6 Sit to Lying (QC): 6 Sit to Stand (QC): 6 Chair/Fck-qo-Geddq Xfer(QC): 4 Bed to/from Chair: 6 Car Transfer (QC): 4 Gait Training Does the Patient Walk?: Yes Gait (FIM): 6 Distance (FIM): 3=150 ft Distance: 150' Walk 10 feet (QC): 6 Walk 50 ft with 2 Turns(QC): 6 Walk 150 ft (QC): 6 Walking 10ft/uneven surface-QC: 4 Gait Level of Assist: 6 Gait Persons Needed: 1 Gait Assistive Device: FWW Wheelchair Training Does the Pt Use a Wheelchair?: No Wheelchair (FIM): 6 Wheelchair Distance: 3=150 ft (x1) Wheelchair Level of Assist: 6 Type of Wheelchair: Manual Stair Training Stair Training: Handrails/: 2 handrails Stairs (FIM): 1 #of Steps: 4 1 Step (curb) (QC): 5 4 Steps (QC): 5 12 Steps (QC): 88 Stairs: Pattern: Step to Level of Assist: 5 Balance Picking up an Object (QC): 88 Mental Status/Objective Comprehension: 7 Expression: 7 Social Interaction: 7 Problem Solvin Memory: 7 ADL-Treatment Feedin (Open containers/packages byself and uses regular utensils to eat.) Eating (QC): 6 Groomin Oral Hygiene (QC): 6 Bathin Bathing Location: L Arm, R Arm, L Upper Leg, R Upper Leg, L Lower Leg (including foot), R Lower Leg (including foot), Chest, Abdomen, Buttocks, Perineal Area Shower/Bathe Self (QC): 6 Upper Extremity Dressin Upper Body Dressing (QC): 6 Lower Extremity Dressin Lower Body Dressing (QC): 6 On/Off Footwear (QC): 6 Toiletin Toileting Hygiene (QC): 6 Toilet/Commode Transfer: 6 Toilet Transfer (QC): 6 Tub: 5 Shower: 6 Assessment/Plan Assessment and Plan Assess & Plan/Chief Complaint Assessment: Subacute right basal ganglia infarct with subsequent left sided weakness residual Diabetes mellitus now insulin-dependent. Udx-su-kvjhhzy levels of 12.2 hemoglobin A1c Hypertension Smoker in midst of cessation Hyperlipidemia CAD previous stent Neuropathy Mild edema placing JENNA's Depression/Acute grief Plan: Inpatient rehabilitation protocols Lyrica 50 MG daily at bedtime Monitor blood sugar and blood pressure Consult cardiology Plavix replacing aspirin since she was on aspirin before and suffered a stroke Monitor closely Loop recorder placed Increase insulin JENNA's Monitor emotional status and started Wellbutrin 100mg PO BID Day pass today (1) CVA (cerebral vascular accident) (2) Cerebrovascular small vessel disease (3) Infarction of right basal ganglia (4) Diabetes (5) Unstable angina (6) CAD (coronary artery disease) (7) HTN (hypertension) (8) Presence of stent in coronary artery (9) Smoker MIYA CASTILLO DO Sep 14, 2018 08:59
[2018-09-14] MEDS: CLOPIDOGREL 75 MG (PLAVIX) TABLET PO SCH (09:29)
[2018-09-14] MEDS: PATCH REMOVAL TP SCH (09:29)
[2018-09-14] MEDS: NICOTINE 14 MG (NICODERM) PATCH TD SCH (09:29)
[2018-09-14] MEDS: buPROPion SR 100 MG (WELLBUTRIN SR) TAB PO SCH ×2 (09:29→22:53)
--- NOTE | 2018-09-14 09:40 | Occupational Ther Daily Note ---
OT Current Status-Daily Note Subjective Pt in bed, agrees to treatment. Pt has no reports of pain. Mental Status/Objective Therapy Code Descriptions/Definitions Functional [place] Measure: 0=Not Assessed/NA 4=Minimal Assistance 1=Total Assistance 5=Supervision or Setup 2=Maximal Assistance 6=Modified [place] 3=Moderate Assistance 7=Complete [place] ADL-Treatment Supine to sit without assist. Sit to stand with modified independence. Pt retrieved clothing from closet using FWW for balance. Transfer to walk in shower with modified independence using grab bar. Doff clothing without assist. Pt able to wash/dry all areas with modified independence. Don pullover shirt with modified independence. Pt donned underwear and pants with modified independence. Stood with good balance with FWW during pant hike. Don bilateral shoes with modified independence while seated. Pt combed hair independently. Therapy Code Descriptions/Definitions Functional [place] Measure: 0=Not Assessed/NA 4=Minimal Assistance 1=Total Assistance 5=Supervision or Setup 2=Maximal Assistance 6=Modified [place] 3=Moderate Assistance 7=Complete [place] Therapy Quality Codes: 6 Independent with activity with or without an assistive device 5 Patient requires set up or clean up by helper. Patient completes activity by themselves 4 Supervision or touching assist (CGA). [place] provide cues , steadying assist 3 The helper provides less than half the effort to complete the activity 2 The helper provides more than half the effort to complete the activity 1 Dependent. The helper does all the effort to complete an activity 7 Patient refused to complete or attempt activity 9 The patient did not perform the activity before the current illness or inj ury 88 Not attempted due to Medical conditions or safety concerns Grooming (FIM): 7 Bathing (FIM): 6 Shower/Bathe Self (QC): 6 Upper Body (FIM): 6 Upper Body Dressing (QC): 6 Lower Body Dressing (FIM): 6 Lower Body Dressing (QC): 6 On/Off Footwear (QC): 6 Shower Transfer(FIM): 6 Other Treatment Gait to therapy gym with FWW, no LOB noted. Pt completed fine motor task of stringing beads to increase bilateral fine motor coordination. Pt occasionally dropped item with left hand, but was able to complete task without assist. Bilateral UE exercises to increase strength for ADLs and transfers. Pt performed shoulder flexion, forward press, biceps curls, and wrist flex/ext x15 reps, 2 sets with 1# dowel tray. Brief rest breaks between exercises. Pt performed grooved pegboard activity with left hand to increase coordination/manipulation skills. Pt required increased time for task, but had minimal difficulty. Arm bike x10 minutes to increase overall strength and activity tolerance for functional tasks. Pt completed activity with minimal resistance and slow pace. No rest breaks needed. Pt able to maintain medical territory manager with left hand throughout activity. Graded clothespin task with left hand to increase medical territory manager/pinch strength. Arm arc with left UE with half pound wrist weight to increase gross strength. Pt fatigues with task, but demonstrates improved strength. Pt completed standing adames bag toss with left hand to increase strength and balance. Pt then able to pick adames bags up off floor and place in basket with SBA for balance. Pt returned to room, sitting in chair with needs met after session. OT Short Term Goals Short Term Goals Time Frame: Sep 14, 2018 Bathing(FIM): 5 Lower Body Dressing(FIM): 5 Toileting(FIM): 5 Toilet/Commode Transfer(FIM): 5 Shower Transfer(FIM): 5 Additional Short Term Goals: 1-Demonstrate ADL Tasks, 2-Verbalize Understanding, 3-ImproveStrength/Marco Antonio 1=Demonstrate adherence to instructed precautions during ADL tasks. 2=Patient will verbalize/demonstrate understanding of assistive devices/modifications for ADL. 3=Patient will improve strength/tolerance for activity to enable patient to perform ADL's. OT Hedis Analyst Goals Correction Goals Time Frame: Sep 28, 2018 Eating (FIM): 6 Eating (QC): 6 Groomin Oral Hygiene (QC): 6 Bathing(FIM): 6 Shower/Bathe Self (QC): 6 Upper Body Dressing(FIM): 6 Upper Body Dressing (QC): 6 Lower Body Dressing(FIM): 6 Lower Body Dressing (QC): 6 On/Off Footwear (QC): 6 Toileting(FIM): 6 Toileting Hygiene (QC): 6 Toilet/Commode Transfer(FIM): 6 Toilet/Commode Transfer (QC): 6 Shower Transfer(FIM): 6 Additional Goals: 1-Demonstrate ADL Tasks, 2-Verbalize Understanding, 3- ImproveStrength/Marco Antonio 1=Demonstrate adherence to instructed precautions during ADL tasks. 2=Patient will verbalize/demonstrate understanding of assistive devices/modifications for ADL. 3=Patient will improve strength/tolerance for activity to enable patient to perform ADL's. OT Education/Plan Discharge Recommendations Plan/Recommendations: Continue POC Treatment Plan/Plan of Care Patient would benefit from OT for education, treatment and training to promote independence in ADL's, mobility, safety and/or upper extremity function for ADL's. Plan of Care: ADL Retraining, Functional Mobility, Group Exercise/Act as Ind, UE Funct Exercise/Act, UE Neuromus Re-Ed/Coord Treatment Duration: Sep 28, 2018 Frequency: 5 times per week Estimated Hrs Per Day: 1.5 hours per day Agreement: Yes Rehab Potential: Good Time/GCodes Start Time: 08:00 Stop Time: 09:30 Total Time Billed (hr/min): 90 Billed Treatment Time 1 visit, ADLx2(30minutes), EXx2(35minutes), FAx2(25minutes) SOFÍA ABBASI OT Sep 14, 2018 09:40
--- NOTE | 2018-09-14 11:44 | Physical Therapy Daily Note ---
PT Daily Note-Current Subjective Pt sitting in recliner upon arrival. Pt agrees to PT. Pt is excited for Day Pass this evening with family. Pain Location: No Pain Reported Mental Status Patient Orientation: Person, Place, Time, Situation Transfers Therapy Code Descriptions/Definitions Functional [place] Measure: 0=Not Assessed/NA 4=Minimal Assistance 1=Total Assistance 5=Supervision or Setup 2=Maximal Assistance 6=Modified [place] 3=Moderate Assistance 7=Complete [place] Therapy Quality Codes: 6 Independent with activity with or without an assistive device 5 Patient requires set up or clean up by helper. Patient completes activity by themselves 4 Supervision or touching assist (CGA). [place] provide cues , steadying assist 3 The helper provides less than half the effort to complete the activity 2 The helper provides more than half the effort to complete the activity 1 Dependent. The helper does all the effort to complete an activity 7 Patient refused to complete or attempt activity 9 The patient did not perform the activity before the current illness or injury 88 Not attempted due to Medical conditions or safety concerns Transfers (B, C, W/C) (FIM): 6 Scootin Rollin Roll Left to Right (QC): 6 Supine to/from Sit: 6 Sit to/from Stand: 6 Sit to Lying (QC): 6 Sit to Stand (QC): 6 Chair/Mnr-ez-Illts Xfer(QC): 6 Bed to/from Chair: 6 Car Transfer (QC): 6 Weight Bearing Full Weight Bearing Full Weight Bearing Gait Training Does the Patient Walk?: Yes Gait (FIM): 6 Distance (FIM): 3=150 ft Distance: 200' Walk 10 feet (QC): 6 Walk 50 ft with 2 Turns(QC): 6 Walk 150 ft (QC): 6 Walking 10ft/uneven surface-QC: 6 Gait Level of Assist: 6 Gait Persons Needed: 1 Gait Assistive Device: Cane Large Base Quad Pt switched to LBQC instead of Hurrycane due to pt having one at home as well as feeling more comfortable with it. Wheelchair Training Does the Pt Use a Wheelchair?: No Stair Training Stair Training: Handrails/: 1 handrail Stairs (FIM): 5 #of Steps: 12 1 Step (curb) (QC): 5 4 Steps (QC): 5 12 Steps (QC): 5 Stairs: Pattern: Step to Level of Assist: 5 Balance Picking up an Object (QC): 5 Exercises Supine Ex: Bridging, Ankle pumps, Pelvic tilt, Quad Set, Glut sets, Heel Slides, Straight leg raise, Hip abd/add Supine Reps: 20 NuStep Minutes: 15 NuStep Workload: 6 Treatments Pt completes FIM scoring items today since OT had pt shower. This included bed mobility, transfers including car transfer, ambulation using LBQC including across varying surface, picking up object from floor & stairs with 1 hand rail & CHECK WEIGHER (descending only). Pt then completes Supine Ex for strengthening and stretching. Pt returns to room to rest at end of tx with all needs met, call light next to pt. Assessment Current Status: Good Progress Pt improves safety of mobility with on ambulation as well as stairs using LBQC. PT Short Term Goals Short Term Goals Time Frame: Sep 14, 2018 Gait (FIM): 5 PT [facility] Goals Rn Research Goals PT [facility] Goals Time Frame: Sep 21, 2018 Transfers (B,C,W/C) (FIM): 7 Sit to Lying (QC): 6 Lying-Sitting on Side/Bed(QC): 6 Sit to Stand (QC): 6 Rollin Roll Left to Right (QC): 6 Chair/Pnt-dz-Btesw Xfer(QC): 6 Car Transfer (QC): 6 Does the Patient Walk: Yes Gait (FIM): 6 Gait distance (FIM): 3=150 ft Walk 10 feet (QC): 6 Walk 10ft-Uneven Surface(QC): 6 Walk 50ft with 2 Turns (QC): 6 Walk 150 ft (QC): 6 Gait Assistive Device: FWW Does the Pt use WC or Scooter?: No Stairs (FIM): 6 1 Step (curb) (QC): 6 4 Steps (QC): 6 12 Steps (QC): 6 Picking up an Object (QC): 4 PT Plan Problem List Problem List: Activity Tolerance Treatment/Plan Treatment Plan: Continue Plan of Care Treatment Plan: Bed Mobility, Education, Functional Activity Marco Antonio, Functional Strength, Group Therapy, Gait, Safety, Therapeutic Exercise, Transfers Treatment Duration: Sep 21, 2018 Frequency: At least 5 of 7 days/Wk (IRF) Estimated Hrs Per Day: 1.5 hours per day Patient and/or Family Agrees t: Yes Safety Risks/Education Patient Education: Gait Training, Steps, Correct Positioning, Safety Issues Teaching Recipient: Patient Teaching Methods: Discussion Response to Teaching: Verbalize Understanding Time/GCodes Time In: 945 Time Out: 1045 Total Billed Treatment Time: 60 Total Billed Treatment 1, GT (20m), EX x2 (25m) & FA (15m) G Codes Necessary: JOAN Garcia DENTAL ASSISTANT MEDICAL ASSISTANT Sep 14, 2018 11:44
--- NOTE | 2018-09-14 13:55 | Physical Therapy Daily Note ---
PT Daily Note-Current Subjective Pt. agrees to Rx. States she is looking forward to going home and feels confident she will do fine. Pain Location: No Pain Reported Mental Status Patient Orientation: Normal For Age Transfers Therapy Code Descriptions/Definitions Functional [place] Measure: 0=Not Assessed/NA 4=Minimal Assistance 1=Total Assistance 5=Supervision or Setup 2=Maximal Assistance 6=Modified [place] 3=Moderate Assistance 7=Complete [place] Therapy Quality Codes: 6 Independent with activity with or without an assistive device 5 Patient requires set up or clean up by helper. Patient completes activity by themselves 4 Supervision or touching assist (CGA). [place] provide cues , steadying assist 3 The helper provides less than half the effort to complete the activity 2 The helper provides more than half the effort to complete the activity 1 Dependent. The helper does all the effort to complete an activity 7 Patient refused to complete or attempt activity 9 The patient did not perform the activity before the current illness or injury 88 Not attempted due to Medical conditions or safety concerns Transfers (B, C, W/C) (FIM): 6 Sit to/from Stand: 6 sit to stand x 7 trials all Mod I Weight Bearing Full Weight Bearing Full Weight Bearing Gait Training Does the Patient Walk?: Yes Gait (FIM): 5 Distance (FIM): 3=150 ft (x2) Gait Level of Assist: 5 Gait Persons Needed: 1 Gait Assistive Device: Cane Large Base Quad SBA quad cane, mod I FWW, no LOB, Stair Training Stair Training: Handrails/: uses cane Stairs (FIM): 4 #of Steps: 12 Stairs: Pattern: Step to Level of Assist: 4 pts present and was trained to assist pt. with stair step ascend/ descend and application of gait belt Exercises NuStep Minutes: 12 NuStep Workload: 6 Assessment Current Status: Good Progress up ad ruben with FWW, SBA for cane PT Short Term Goals Short Term Goals Time Frame: Sep 14, 2018 Gait (FIM): 5 PT [facility] Goals Detention Goals PT [facility] Goals Time Frame: Sep 21, 2018 Transfers (B,C,W/C) (FIM): 7 Sit to Lying (QC): 6 Lying-Sitting on Side/Bed(QC): 6 Sit to Stand (QC): 6 Rollin Roll Left to Right (QC): 6 Chair/Vdq-or-Hazmx Xfer(QC): 6 Car Transfer (QC): 6 Does the Patient Walk: Yes Gait (FIM): 6 Gait distance (FIM): 3=150 ft Walk 10 feet (QC): 6 Walk 10ft-Uneven Surface(QC): 6 Walk 50ft with 2 Turns (QC): 6 Walk 150 ft (QC): 6 Gait Assistive Device: FWW Does the Pt use WC or Scooter?: No Stairs (FIM): 6 1 Step (curb) (QC): 6 4 Steps (QC): 6 12 Steps (QC): 6 Picking up an Object (QC): 4 PT Plan Treatment/Plan Treatment Plan: Continue Plan of Care Treatment Plan: Bed Mobility, Education, Functional Activity [place], Functional Strength, Group Therapy, Gait, Safety, Therapeutic Exercise, Transfers Treatment Duration: Sep 21, 2018 Frequency: At least 5 of 7 days/Wk (IRF) Estimated Hrs Per Day: 1.5 hours per day Patient and/or Family Agrees t: Yes Safety Risks/Education Patient Education: Gait Training, Transfer Techniques, Steps, Correct Posit ioning, Disease Process, Safety Issues Teaching Recipient: Patient, Family Teaching Methods: Demonstration, Discussion Response to Teaching: Verbalize Understanding, Return Demonstration, Re inforcement Needed Time/GCodes Time In: 1330 Time Out: 1400 Total Billed Treatment Time: 30 Total Billed Treatment 1,Ex15m,FA15m G Codes Necessary: ARAMIS Rider ODD TICKET CLERK Sep 14, 2018 13:55
[2018-09-14 17:41] VITALS: BP 101/69
--- NOTE | 2018-09-14 18:33 | NUR ---
Patient's blood sugar was 242, which calls for 18u of Novolog. Patient is not planning on eating dinner at this time and is concerned about dropping her blood sugar too low if she take the Insulin. Patient will be having a pass for this evening and would like her blood sugar rechecked when she returns.
--- NOTE | 2018-09-14 18:48 | NUR ---
Patient out of facility for Evening Pass. Accompanied by Adult daughter.
--- NOTE | 2018-09-14 20:53 | Cardiology Progress Note ---
Cardiology SOAP Progress Note Subjective: No cardiac complaints Objective: I&O/Vital Signs 09/14/18 09/14/18 09:00 17:41 Temp 97.8 Pulse 79 Resp 18 B/P (MAP) 101/69 (80) Pulse Ox 95 O2 Delivery Room Air Room Air 09/14/18 00:00 Intake Total 1080 ml Balance 1080 ml Weight (Pounds): 167 Weight (Ounces): 0.0 Weight (Calculated Kilograms): 75.537133 Constitutional: appears stated age, AAO x 3; No apparent distress; well- developed, well-nourished Respiratory: No accessory muscle use, No respiratory distress, No chest tender, No chest expansion is symmetric; chest is bilaterally symmetric; No lungs clear to percussion; lungs clear to auscultation; No crackles, No rhonchi, No rales, No stridor, No wheezing, No pleural rub, No other Cardiovascular: regular rate-rhythm; No irregularly irregular, No extra beats, No parasternal heave is noted, No JVD, No edema, No bradycardia, No tachycardia, No point of maximal impulse, No cardiac thrills are palpable; S1 and S2; No gallop/S3, No gallop/S4, No diastolic murmur, No systolic murmur, No friction r ub, No click, No other Gastrointestional: No tender, No soft, No round, No distended, No pulsatile mass, No organomegaly, No guarding, No rebound, No tenderness, No hernia, No mass, No audible bowel sounds, No abnormal bowel sounds, No abdominal bruits, No spleenomegaly, No other Extremities: No normal range of motion, No non-tender, No normal inspection, No pedal edema, No calf tenderness, No normal capillary refill, No pelvis stable, No calf tenderness, No inflammation, No pedal edema, No slow capillary refill, No swelling, No other, No abrasion, No clubbing, No cyanosis, No ecchymosis, No laceration, No no lower extremity edema bilateral, No significant edema, No tenderness, No wound Neurologic/Psychiatric: alert, normal mood/affect, oriented x 3 Skin: No normal color, No warm/dry, No cyanosis, No cool, No diaphoresis, No damp, No ecchymosis, No jaundice, No mottled, No pallor, No rash, No tattoos/piercings, No ulcerations, No rash on exposed areas, No ulcerations on exposed areas, No other Results/Procedures: Labs Laboratory Tests 09/14/18 04:56: White Blood Count 7.6, Red Blood Count 4.54, Hemoglobin 13.4, Hematocrit 41, Mean Corpuscular Volume 91, Mean Corpuscular Hemoglobin 30, Mean Corpuscular Hemoglobin Concent 33, Red Cell Distribution Width 13.2, Platelet Count 212, Mean Platelet Volume 10.9H, Neutrophils (%) (Auto) 47, Lymphocytes (%) (Auto) 38, Monocytes (%) (Auto) 11, Eosinophils (%) (Auto) 4, Basophils (%) (Auto) 1, Neutrophils # (Auto) 3.6, Lymphocytes # (Auto) 2.9, Monocytes # (Auto) 0.8, Eosinophils # (Auto) 0.3, Basophils # (Auto) 0.1, Sodium Level 143, Potassium Level 4.0, Chloride Level 110H, Carbon Dioxide Level 21, Anion Gap 12, Blood Urea Nitrogen 22H, Creatinine 0.68, Estimat Glomerular Filtration Rate > 60, BUN/Creatinine Ratio 32, Glucose Level 126H, Calcium Level 8.9, Corrected Calciu m 9.5, Total Bilirubin 0.3, Aspartate Amino Transf (AST/SGOT) 25, Alanine Aminotransferase (ALT/SGPT) 35, Alkaline Phosphatase 90, Total Protein 5.4L, Albumin 3.3 09/14/18 05:36: Glucometer 127H 09/14/18 11:04: Glucometer 90 09/14/18 15:54: Glucometer 242H A/P: Assessment/Dx: Right basal ganglia stroke, cryptogenic stroke, History of CAD/PCI. Plan: Inpatient rehabilitation - consistent improvement. Negative workup for etiology of stroke. Stroke has been confirmed on MRI. Bilateral carotid ultrasound is negative. Telemetry negative for any arrhythmias. Echocardiogram was negative for any intracardiac shunting. Diagnosis is likely cryptogenic stroke. Long-term surveillance for atrial fibrillation is recommended with an implantable loop recorder. I have discussed at length with the patient and informed consent taken. implantable loop recorder done 09/08/2018. Patient is on Plavix for CAD. On statin therapy. Thank you for your consultation. Please call me if you have any questions. Joe Awad MD, FACP, FACC, FSCAI, FHRS, CCDS Interventional Cardiology Cardiac Electrophysiology Vascular Medicine and Endovascular Interventions Keyon AWAD MD Sep 14, 2018 20:53
[2018-09-14] MEDS: PREGABALIN 50 MG (LYRICA) CAP PO SCH (22:53)
[2018-09-14] MEDS: ATORVASTATIN 80 MG (LIPITOR) TABLET PO SCH (22:53)
[2018-09-15] MEDS: inSUlin ASPART (NovoLOG) 1 UNIT/0.01 ML (CHARGE PER UNIT) SC SCH ×7 (05:18→21:21)
[2018-09-15 05:35] VITALS: BP 90/51
--- NOTE | 2018-09-15 07:25 | Occupational Ther Daily Note ---
OT Current Status-Daily Note Subjective Pt alert, sitting EOB. Pt stated "I slept in because I got to bed late, but had a great time with my family." Pt had went on [place] with family last evening. No c/o pain. Pt to discharge 09/16/18. Mental Status/Objective Patient Orientation: Person, Place, Time, Situation Therapy Code Descriptions/Definitions Functional [place] Measure: 0=Not Assessed/NA 4=Minimal Assistance 1=Total Assistance 5=Supervision or Setup 2=Maximal Assistance 6=Modified [place] 3=Moderate Assistance 7=Complete [place] ADL-Treatment Therapy Code Descriptions/Definitions Functional [place] Measure: 0=Not Assessed/NA 4=Minimal Assistance 1=Total Assistance 5=Supervision or Setup 2=Maximal Assistance 6=Modified [place] 3=Moderate Assistance 7=Complete [place] Therapy Quality Codes: 6 Independent with activity with or without an assistive device 5 Patient requires set up or clean up by helper. Patient completes activity by themselves 4 Supervision or touching assist (CGA). [place] provide cues , steadying assist 3 The helper provides less than half the effort to complete the activity 2 The helper provides more than half the effort to complete the activity 1 Dependent. The helper does all the effort to complete an activity 7 Patient refused to complete or attempt activity 9 The patient did not perform the activity before the current illness or injury 88 Not attempted due to Medical conditions or safety concerns Eating (FIM): 7 (Pt opens packages and containers by self and uses regular utensils.) Eating (QC): 6 Grooming (FIM): 6 (Using FWW for stabilization, pt able to complete by self.) Oral Hygiene (QC): 6 Bathing (FIM): 6 (Using grabbars, hand held shower and shower bench pt complete by self.) Bathing Location: L Arm, R Arm, L Upper Leg, R Upper Leg, L Lower Leg (including foot), R Lower Leg (including foot), Chest, Abdomen, Buttocks, Perineal Area Shower/Bathe Self (QC): 6 Upper Body (FIM): 6 (Using FWW to retreive clothing, pt completes by self.) Upper Body Dressing (QC): 6 Lower Body Dressing (FIM): 6 (Using FWW to retreive clothing, pt completes by self.) Lower Body Dressing (QC): 6 On/Off Footwear (QC): 6 Toileting (FIM): 6 (Using FWW and grabbars, pt completes by self.) Toileting Hygiene (QC): 6 Transfers (B, C, W/C) (FIM): 6 (Using FWW) Toilet/Commode Transfer (FIM): 6 (Using FWW and grabbars, pt completes by self.) Toilet Transfer (QC): 6 Shower Transfer(FIM): 6 (Using shower bench, grabbars and FWW completes by self.) Other Treatment Pt completes a 6 step fine motor task with light resistance theraputty to increase strength, dexterity and coordination 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 After therapy, pt sitting in recliner with call light/phone in reach. All needs met in room. OT Short Term Goals Short Term Goals Time Frame: Sep 14, 2018 Bathing(FIM): 5 Lower Body Dressing(FIM): 5 Toileting(FIM): 5 Toilet/Commode Transfer(FIM): 5 Shower Transfer(FIM): 5 Additional Short Term Goals: 1-Demonstrate ADL Tasks, 2-Verbalize Understanding, 3-ImproveStrength/[place] 1=Demonstrate adherence to instructed precautions during ADL tasks. 2=Patient will verbalize/demonstrate understanding of assistive devices/modifications for ADL. 3=Patient will improve strength/tolerance for activity to enable patient to perform ADL's. OT Drug Safety Associate Goals Drug Safety Associate Goals Time Frame: Sep 28, 2018 Eating (FIM): 6 Eating (QC): 6 Groomin Oral Hygiene (QC): 6 Bathing(FIM): 6 Shower/Bathe Self (QC): 6 Upper Body Dressing(FIM): 6 Upper Body Dressing (QC): 6 Lower Body Dressing(FIM): 6 Lower Body Dressing (QC): 6 On/Off Footwear (QC): 6 Toileting(FIM): 6 Toileting Hygiene (QC): 6 Toilet/Commode Transfer(FIM): 6 Toilet/Commode Transfer (QC): 6 Shower Transfer(FIM): 6 Additional Goals: 1-Demonstrate ADL Tasks, 2-Verbalize Understanding, 3- ImproveStrength/[place] 1=Demonstrate adherence to instructed precautions during ADL tasks. 2=Patient will verbalize/demonstrate understanding of assistive devices/modifications for ADL. 3=Patient will improve strength/tolerance for activity to enable patient to perform ADL's. OT Education/Plan Discharge Recommendations Plan/Recommendations: Continue POC Treatment Plan/Plan of Care Patient would benefit from OT for education, treatment and training to promote independence in ADL's, mobility, safety and/or upper extremity function for ADL's. Plan of Care: ADL Retraining, Functional Mobility, Group Exercise/Act as Ind, UE Funct Exercise/Act, UE Neuromus Re-Ed/Coord Treatment Duration: Sep 28, 2018 Frequency: 5 times per week Estimated Hrs Per Day: 1.5 hours per day Agreement: Yes Rehab Potential: Good Time/GCodes Start Time: 07:00 Stop Time: 08:30 Total Time Billed (hr/min): 90 Billed Treatment Time 1 visit-ADL 5 (70 min) EX 1 (20 min) BRANDON MCCLAIN Sep 15, 2018 07:25
[2018-09-15] MEDS: PATCH REMOVAL TP SCH (08:38)
[2018-09-15] MEDS: CLOPIDOGREL 75 MG (PLAVIX) TABLET PO SCH (08:39)
[2018-09-15] MEDS: NICOTINE 14 MG (NICODERM) PATCH TD SCH (08:39)
[2018-09-15] MEDS: buPROPion SR 100 MG (WELLBUTRIN SR) TAB PO SCH ×2 (08:39→20:29)
--- NOTE | 2018-09-15 09:10 | PM&R Progress Note ---
Subjective HPI/CC On Admission Date Seen by Provider: Sep 15, 2018 Time Seen by Provider: 08:45 CC: Right basal ganglia stroke HPI: This is a 58yoWF clinic pt of Dr. 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 Pt was admitted placed on TIA protocol and CT scan showed no evidence of hemorrhage pt was close ly monitored placed on Telemetry checked echocardiogram laboratory monitoring and close blood sugar control although HGB A1C was 12.2. MRI confirmed right basal ganglia infarct. Dr. Awad will se her in consultation for risk stratification of and embolic stroke and she will be maintained on telemetry an overall has seen an immense improvement in her symptoms but still having issues with walking in addition to fine motor skills of the left hand. Smoking cessation counseled and insulin initiation will be started and carotid ultrasound was reviewed which showed no stenosis, chest xray was negative but the MRI did show prior CVAs. She does want to treat her Neuropathy with Lyrica and we will start her on 50mg tonight. Subjective/Events-last exam Day pass movie to the [employer] went very well Needs a large base quad cane Wednesday discharge is planned Sugars are much improved Snacks non diabetic food most of the time per nurse Bowels are moving well Conferred with RN Reviewed therapy notes Review of Systems General: Fatigue Neurological: Weakness, Numbness, Incoordination Objective Exam Vital Signs Vital Signs Date Time Temp Pulse Resp B/P (MAP) Pulse Ox O2 Delivery O2 Flow Rate FiO2 09/15/18 20:45 Room Air 09/15/18 15:28 96.8 66 16 118/67 (84) 100 Capillary Refill : General Appearance: No Apparent Distress, WD/WN, Chronically ill HEENT: PERRL/EOMI, Normal ENT Inspection, Pharynx Normal, Moist Mucous Membranes Neck: Full Range of Motion, Normal Inspection, Non Tender, Supple Respiratory: Chest Non Tender, Lungs Clear, Normal Breath Sounds, No Accessory Muscle Use, No Respiratory Distress Cardiovascular: Regular Rate, Rhythm, No Edema, No Gallop, No JVD, No Murmur Gastrointestinal: Normal Bowel Sounds, No Organomegaly, No Pulsatile Mass, Non Tender, Soft Back: Normal Inspection, No CVA Tenderness, No Vertebral Tenderness Extremity: Normal Capillary Refill, Normal Inspection, Normal Range of Motion, Non Tender, No Calf Tenderness, No Pedal Edema Neurologic/Psychiatric: Alert, Oriented x3, No Motor/Sensory Deficits (decreased strength left upper and lower), Normal Mood/Affect, 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 FIM Transfers Therapy Code Descriptions/Definitions Functional [place] Measure: 0=Not Assessed/NA 4=Minimal Assistance 1=Total Assistance 5=Supervision or Setup 2=Maximal Assistance 6=Modified [place] 3=Moderate Assistance 7=Complete [place] Therapy Quality Codes: 6 Independent with activity with or without an assistive device 5 Patient requires set up or clean up by helper. Patient completes activity by themselves 4 Supervision or touching assist (CGA). [place] provide cues , steadying assist 3 The helper provides less than half the effort to complete the activity 2 The helper provides more than half the effort to complete the activity 1 Dependent. The helper does all the effort to complete an activity 7 Patient refused to complete or attempt activity 9 The patient did not perform the activity before the current illness or injury 88 Not attempted due to Medical conditions or safety concerns Transfers (B, C, W/C) (FIM): 6 (Using FWW) Scootin Rollin Roll Left to Right (QC): 6 Supine to/from Sit: 6 Sit to/from Stand: 6 Sit to Lying (QC): 6 Sit to Stand (QC): 6 Chair/Ewx-dn-Znwtl Xfer(QC): 6 Bed to/from Chair: 6 Car Transfer (QC): 6 Gait Training Does the Patient Walk?: Yes Gait (FIM): 5 Distance (FIM): 3=150 ft (x2) Distance: 200' Walk 10 feet (QC): 6 Walk 50 ft with 2 Turns(QC): 6 Walk 150 ft (QC): 6 Walking 10ft/uneven surface-QC: 6 Gait Level of Assist: 5 Gait Persons Needed: 1 Gait Assistive Device: Cane Large Base Quad Wheelchair Training Does the Pt Use a Wheelchair?: No Wheelchair (FIM): 6 Wheelchair Distance: 3=150 ft (x1) Wheelchair Level of Assist: 6 Type of Wheelchair: Manual Stair Training Stair Training: Handrails/: uses cane Stairs (FIM): 4 #of Steps: 12 1 Step (curb) (QC): 5 4 Steps (QC): 5 12 Steps (QC): 5 Stairs: Pattern: Step to Level of Assist: 4 Balance Picking up an Object (QC): 5 Mental Status/Objective Comprehension: 7 Expression: 7 Social Interaction: 7 Problem Solvin Memory: 7 ADL-Treatment Feedin (Pt opens packages and containers by self and uses regular utensils.) Eating (QC): 6 Groomin (Using FWW for stabilization, pt able to complete by self.) Oral Hygiene (QC): 6 Bathin (Using grabbars, hand held shower and shower bench pt complete by self.) Bathing Location: L Arm, R Arm, L Upper Leg, R Upper Leg, L Lower Leg (including foot), R Lower Leg (including foot), Chest, Abdomen, Buttocks, Perine al Area Shower/Bathe Self (QC): 6 Upper Extremity Dressin (Using FWW to retreive clothing, pt completes by self.) Upper Body Dressing (QC): 6 Lower Extremity Dressin (Using FWW to retreive clothing, pt completes by self.) Lower Body Dressing (QC): 6 On/Off Footwear (QC): 6 Toiletin (Using FWW and grabbars, pt completes by self.) Toileting Hygiene (QC): 6 Toilet/Commode Transfer: 6 (Using FWW and grabbars, pt completes by self.) Toilet Transfer (QC): 6 Tub: 5 Shower: 6 (Using shower bench, grabbars and FWW completes by self.) Assessment/Plan Assessment and Plan Assess & Plan/Chief Complaint Assessment: Subacute right basal ganglia infarct with subsequent left sided weakness residual Diabetes mellitus now insulin-dependent. [place] levels of 12.2 hemoglobin A1c Hypertension Smoker in midst of cessation Hyperlipidemia CAD previous stent Neuropathy Mild edema placing JENNA's Depression/Acute grief Plan: Inpatient rehabilitation protocols Lyrica 50 MG daily at bedtime Monitor blood sugar and blood pressure Consult cardiology Plavix replacing aspirin since she was on aspirin before and suffered a stroke Monitor closely Loop recorder placed Increase insulin JENNA's Monitor emotional status and started Wellbutrin 100mg PO BID DC tomorrow (1) CVA (cerebral vascular accident) (2) Cerebrovascular small vessel disease (3) Infarction of right basal ganglia (4) Diabetes (5) Unstable angina (6) CAD (coronary artery disease) (7) HTN (hypertension) (8) Presence of stent in coronary artery (9) Smoker MIYA CASTILLO DO Sep 15, 2018 09:10
--- NOTE | 2018-09-15 11:53 | Physical Therapy Daily Note ---
PT Daily Note-Current Subjective Pt sitting in recliner upon arrival. Pt agrees to PT for FIM scoring for D/C tomorrow (09/16). Pain Location: No Pain Reported Mental Status Patient Orientation: Person, Place, Time, Situation Transfers Therapy Code Descriptions/Definitions Functional [place] Measure: 0=Not Assessed/NA 4=Minimal Assistance 1=Total Assistance 5=Supervision or Setup 2=Maximal Assistance 6=Modified [place] 3=Moderate Assistance 7=Complete [place] Therapy Quality Codes: 6 Independent with activity with or without an assistive device 5 Patient requires set up or clean up by helper. Patient completes activity by themselves 4 Supervision or touching assist (CGA). [place] provide cues , steadying assist 3 The helper provides less than half the effort to complete the activity 2 The helper provides more than half the effort to complete the activity 1 Dependent. The helper does all the effort to complete an activity 7 Patient refused to complete or attempt activity 9 The patient did not perform the activity before the current illness or injury 88 Not attempted due to Medical conditions or safety concerns Transfers (B, C, W/C) (FIM): 6 Scootin Rollin Roll Left to Right (QC): 7 Supine to/from Sit: 7 Sit to/from Stand: 6 Sit to Lying (QC): 7 Sit to Stand (QC): 6 Chair/Nkf-jp-Frmeg Xfer(QC): 6 Bed to/from Chair: 6 Car Transfer (QC): 7 Weight Bearing Full Weight Bearing Full Weight Bearing Gait Training Does the Patient Walk?: Yes Gait (FIM): 6 Distance (FIM): 3=150 ft Distance: 750' Walk 10 feet (QC): 6 Walk 50 ft with 2 Turns(QC): 6 Walk 150 ft (QC): 6 Walking 10ft/uneven surface-QC: 6 Gait Level of Assist: 6 Gait Persons Needed: 1 Gait Assistive Device: Cane Large Base Quad Wheelchair Training Does the Pt Use a Wheelchair?: No Stair Training Stair Training: Handrails/: 1 handrail Stairs (FIM): 6 #of Steps: 12 1 Step (curb) (QC): 6 4 Steps (QC): 6 12 Steps (QC): 6 Stairs: Pattern: Step to Level of Assist: 6 Balance Picking up an Object (QC): 6 Exercises Supine Ex: Ankle pumps, Quad Set, Glut sets, Heel Slides, Short Arc Quads, Straight leg raise, Hip abd/add Supine Reps: 15 NuStep Minutes: 15 NuStep Workload: 7 Treatments Pt completes items for FIM scoring including: bed mobility, transfers including car transfer, ambulation including across varying surface, picking up object from floor and stairs. Pt also uses NuStep for 15m at WL 7 and Supine Ex & stretching. Pt takes extended walk to work on activity tolerance. Pt returns to room at end of tx with all needs met, call light next to pt. Assessment Current Status: Excellent Progress Pt is motivated and continues to work hard to improve safety and independence of tasks given. Pt has progressed with ambulation and feels comfortable about returning home. PT Short Term Goals Short Term Goals Time Frame: Sep 14, 2018 Gait (FIM): 5 PT [place] Goals [place] Goals PT [place] Goals Time Frame: Sep 21, 2018 Transfers (B,C,W/C) (FIM): 7 Sit to Lying (QC): 6 Lying-Sitting on Side/Bed(QC): 6 Sit to Stand (QC): 6 Rollin Roll Left to Right (QC): 6 Chair/Pqc-uz-Bvseb Xfer(QC): 6 Car Transfer (QC): 6 Does the Patient Walk: Yes Gait (FIM): 6 Gait distance (FIM): 3=150 ft Walk 10 feet (QC): 6 Walk 10ft-Uneven Surface(QC): 6 Walk 50ft with 2 Turns (QC): 6 Walk 150 ft (QC): 6 Gait Assistive Device: FWW Does the Pt use WC or Scooter?: No Stairs (FIM): 6 1 Step (curb) (QC): 6 4 Steps (QC): 6 12 Steps (QC): 6 Picking up an Object (QC): 4 PT Plan Problem List Problem List: Activity Tolerance Treatment/Plan Treatment Plan: Continue Plan of Care Treatment Plan: Bed Mobility, Education, Functional Activity [place], Functional Strength, Group Therapy, Gait, Safety, Therapeutic Exercise, Transfers Treatment Duration: Sep 21, 2018 Frequency: At least 5 of 7 days/Wk (IRF) Estimated Hrs Per Day: 1.5 hours per day Patient and/or Family Agrees t: Yes Safety Risks/Education Patient Education: Gait Training, Steps, Correct Positioning, Safety Issues Teaching Recipient: Patient Teaching Methods: Discussion Response to Teaching: Verbalize Understanding Time/GCodes Time In: 945 Time Out: 1045 Total Billed Treatment Time: 60 Total Billed Treatment 1, GT (20m), EX (15m) & FA x2 (25m) G Codes Necessary: JOAN Garcia DRAG CAR RACER Sep 15, 2018 11:53
[2018-09-15] MEDS: ACETAMINOPHEN 325 MG TABLET PO PRN ×2 (12:28→20:30)
--- NOTE | 2018-09-15 14:22 | Cardiology Progress Note ---
Cardiology SOAP Progress Note Subjective: No cardiac complaints. Objective: I&O/Vital Signs 09/15/18 05:35 Temp 97.9 Pulse 81 Resp 16 B/P (MAP) 90/51 (64) Pulse Ox 98 O2 Delivery Room Air 09/14/18 23:59 Intake Total 1200 ml Balance 1200 ml Weight (Pounds): 167 Weight (Ounces): 0.0 Weight (Calculated Kilograms): 75.811075 Constitutional: appears stated age, AAO x 3; No apparent distress; well- developed, well-nourished Respiratory: No accessory muscle use, No respiratory distress, No chest tender, No chest expansion is symmetric; chest is bilaterally symmetric; No lungs clear to percussion; lungs clear to auscultation; No crackles, No rhonchi, No rales, No stridor, No wheezing, No pleural rub, No other Cardiovascular: regular rate-rhythm; No irregularly irregular, No extra beats, No parasternal heave is noted, No JVD, No edema, No bradycardia, No tachycardia, No point of maximal impulse, No cardiac thrills are palpable; S1 and S2; No gallop/S3, No gallop/S4, No diastolic murmur, No systolic murmur, No friction rub, No click, No other Gastrointestional: No tender, No soft, No round, No distended, No pulsatile mass, No organomegaly, No guarding, No rebound, No tenderness, No hernia, No mass, No audible bowel sounds, No abnormal bowel sounds, No abdominal bruits, No spleenomegaly, No other Extremities: No normal range of motion, No non-tender, No normal inspection, No pedal edema, No calf tenderness, No normal capillary refill, No pelvis stable, No calf tenderness, No inflammation, No pedal edema, No slow capillary refill, No swelling, No other, No abrasion, No clubbing, No cyanosis, No ecchymosis, No laceration, No no lower extremity edema bilateral, No significant edema, No tenderness, No wound Neurologic/Psychiatric: alert, normal mood/affect, oriented x 3 Skin: No normal color, No warm/dry, No cyanosis, No cool, No diaphoresis, No damp, No ecchymosis, No jaundice, No mottled, No pallor, No rash, No tattoos/piercings, No ulcerations, No rash on exposed areas, No ulcerations on exposed areas, No other Results/Procedures: Labs Laboratory Tests 09/14/18 15:54: Glucometer 242H 09/14/18 22:47: Glucometer 242H 09/15/18 05:08: Glucometer 120H 09/15/18 10:48: Glucometer 68L 09/15/18 12:16: Glucometer 161H A/P: Assessment/Dx: Right basal ganglia stroke, cryptogenic stroke, History of CAD/PCI. Plan: Inpatient rehabilitation - consistent improvement. Negative workup for etiology of stroke. Stroke has been confirmed on MRI. Bilateral carotid ultrasound is negative. Telemetry negative for any arrhythmias. Echocardiogram was negative for any intracardiac shunting. Diagnosis is likely cryptogenic stroke. Long-term surveillance for atrial fi brillation is recommended with an implantable loop recorder. I have discussed at length with the patient and informed consent taken. implantable loop recorder done 09/08/2018. Patient is on Plavix for CAD. On statin therapy. Thank you for your consultation. Please call me if you have any questions. Joe Awad MD, FACP, FACC, FSCAI, FHRS, CCDS Interventional Cardiology Cardiac Electrophysiology Vascular Medicine and Endovascular Interventions Keyon AWAD MD Sep 15, 2018 2:22 pm
--- NOTE | 2018-09-15 15:14 | Physical Therapy Daily Note ---
PT Daily Note-Current Subjective Pt laying Supine in bed upon arrival. Pt agrees to PT. Pt asks to use NuStep for tx. Pain Location: No Pain Reported Mental Status Patient Orientation: Person, Place, Time, Situation Transfers Therapy Code Descriptions/Definitions Functional Clarence Measure: 0=Not Assessed/NA 4=Minimal Assistance 1=Total Assistance 5=Supervision or Setup 2=Maximal Assistance 6=Modified Clarence 3=Moderate Assistance 7=Complete Clarence Therapy Quality Codes: 6 Independent with activity with or without an assistive device 5 Patient requires set up or clean up by helper. Patient completes activity by themselves 4 Supervision or touching assist (CGA). [place] provide cues , steadying assist 3 The helper provides less than half the effort to complete the activity 2 The helper provides more than half the effort to complete the activity 1 Dependent. The helper does all the effort to complete an activity 7 Patient refused to complete or attempt activity 9 The patient did not perform the activity before the current illness or injury 88 Not attempted due to Medical conditions or safety concerns Scootin Rollin Roll Left to Right (QC): 7 Supine to/from Sit: 7 Sit to/from Stand: 6 Sit to Lying (QC): 7 Sit to Stand (QC): 6 Chair/Jgk-vu-Hcktw Xfer(QC): 6 Bed to/from Chair: 6 Weight Bearing Full Weight Bearing Full Weight Bearing Gait Training Does the Patient Walk?: Yes Gait (FIM): 6 Distance (FIM): 3=150 ft Distance: 150' Walk 10 feet (QC): 6 Walk 50 ft with 2 Turns(QC): 6 Walk 150 ft (QC): 6 Gait Level of Assist: 6 Gait Persons Needed: 1 Wheelchair Training Does the Pt Use a Wheelchair?: No Stair Training Stair Training: Handrails/: 1 handrail #of Steps: 4 1 Step (curb) (QC): 6 4 Steps (QC): 6 Stairs: Pattern: Step to Level of Assist: 6 Exercises NuStep Minutes: 15 NuStep Workload: 7 Treatments Pt transfers from bed to standing then ambulates in hallway to Therapy Gym. Pt uses NuStep for 15m at WL 7 followed by short RB. Pt then ambulates 1 set of 4 steps before returning to room to rest in recliner. Pt has all needs met, call light next to pt. Assessment Current Status: Excellent Progress Pt has made great progress with safety and independence of tasks especially transfers and mobility. PT Short Term Goals Short Term Goals Time Frame: Sep 14, 2018 Gait (FIM): 5 PT Long-Term Goals Occupational Health Specialist Goals PT Long-Term Goals Time Frame: Sep 21, 2018 Transfers (B,C,W/C) (FIM): 7 Sit to Lying (QC): 6 Lying-Sitting on Side/Bed(QC): 6 Sit to Stand (QC): 6 Rollin Roll Left to Right (QC): 6 Chair/Eel-fc-Vavrm Xfer(QC): 6 Car Transfer (QC): 6 Does the Patient Walk: Yes Gait (FIM): 6 Gait distance (FIM): 3=150 ft Walk 10 feet (QC): 6 Walk 10ft-Uneven Surface(QC): 6 Walk 50ft with 2 Turns (QC): 6 Walk 150 ft (QC): 6 Gait Assistive Device: FWW Does the Pt use WC or Scooter?: No Stairs (FIM): 6 1 Step (curb) (QC): 6 4 Steps (QC): 6 12 Steps (QC): 6 Picking up an Object (QC): 4 PT Plan Problem List Problem List: Activity Tolerance Treatment/Plan Treatment Plan: Continue Plan of Care Treatment Plan: Bed Mobility, Education, Functional Activity Marco Antonio, Functional Strength, Group Therapy, Gait, Safety, Therapeutic Exercise, Transfers Treatment Duration: Sep 21, 2018 Frequency: At least 5 of 7 days/Wk (IRF) Estimated Hrs Per Day: 1.5 hours per day Patient and/or Family Agrees t: Yes Safety Risks/Education Patient Education: Gait Training, Steps, Correct Positioning, Safety Issues Teaching Recipient: Patient Teaching Methods: Discussion Response to Teaching: Verbalize Understanding Time/GCodes Time In: 1440 Time Out: 1510 Total Billed Treatment Time: 30 Total Billed Treatment 1, GT (15m) & EX (15m) G Codes Necessary: No JOAN PLASENCIA MACADAM RAKER Sep 15, 2018 15:13
[2018-09-15 15:28] VITALS: BP 118/67
[2018-09-15] MEDS: ATORVASTATIN 80 MG (LIPITOR) TABLET PO SCH (20:29)
[2018-09-15] MEDS: PREGABALIN 50 MG (LYRICA) CAP PO SCH (20:29)
--- NOTE | 2018-09-15 21:21 | NUR ---
Pt refused pm Levemir. States she is worried about her FSBS being low in am as it was today. Education provided but pt cont to refuse Levemir. Cont to monitor.
[2018-09-16] MEDS: inSUlin ASPART (NovoLOG) 1 UNIT/0.01 ML (CHARGE PER UNIT) SC SCH ×2 (05:24→06:26)
[2018-09-16 05:40] VITALS: BP 112/52
[2018-09-16] MEDS: ACETAMINOPHEN 325 MG TABLET PO PRN (06:09)
[2018-09-16] MEDS ORDERED: INSU100I29 SQ (08:54)
[2018-09-16] MEDS ORDERED: CLOP75TA28 PO (08:54)
[2018-09-16] MEDS ORDERED: INSU100I14 SQ (08:54)
[2018-09-16] MEDS ORDERED: BLOO-1350 MC (08:54)
[2018-09-16] MEDS ORDERED: PREG50CA2 PO (08:54)
[2018-09-16] MEDS ORDERED: NEED-116 MC (08:54)
[2018-09-16] MEDS ORDERED: BUPR100T8 PO (08:54)
[2018-09-16] MEDS ORDERED: ATOR80TA76 PO (08:54)
--- NOTE | 2018-09-16 08:56 | Discharge Summary ---
Diagnosis/Chief Complaint Date of Admission Sep 07, 2018 at 12:00 Date of Discharge Discharge Date: Sep 16, 2018 Discharge Diagnosis Assessment: Subacute right basal ganglia infarct with subsequent left sided weakness residual Diabetes mellitus now insulin-dependent. Lhb-rw-amrslau levels of 12.2 hemoglobin A1c Hypertension Smoker in midst of cessation Hyperlipidemia CAD previous stent Neuropathy Mild edema placing JENNA's Depression/Acute grief Plan: Inpatient rehabilitation protocols Lyrica 50 MG daily at bedtime Monitor blood sugar and blood pressure Consult cardiology Plavix replacing aspirin since she was on aspirin before and suffered a stroke Monitor closely Loop recorder placed Increase insulin JENNA's Monitor emotional status and started Wellbutrin 100mg PO BID DC today (1) CVA (cerebral vascular accident) (2) Cerebrovascular small vessel disease (3) Infarction of right basal ganglia (4) Diabetes (5) Unstable angina (6) CAD (coronary artery disease) (7) HTN (hypertension) (8) Presence of stent in coronary artery (9) Smoker Discharge Summary Discharge Physical Examination Allergies: Coded Allergies: cefdinir (Verified Adverse Reaction, Mild, NAUSEA, yeast infection, 09/04/18) Cephalosporins (Verified Adverse Reaction, Unknown, yeast infections, 09/04/18) Vitals & I&Os Vital Signs Date Time Temp Pulse Resp B/P (MAP) Pulse Ox O2 Delivery O2 Flow Rate FiO2 09/16/18 11:30 09/16/18 08:00 Room Air 09/16/18 05:40 97.6 77 18 96 General Appearance: Alert, Oriented X3, Cooperative Respiratory: Clear to Auscultation, Normal Air Movement Cardiovascular: Regular Rate, Normal S1, Normal S2 Neuro: Normal Gait, Normal Speech, Strength at 5/5 X4 Ext Psych/Mental Status: Mental Status NL, Mood NL Hospital Course Was the Problem List Reviewed?: Yes Hospital course: Patient had an uneventful hospital course for 9 days in inpatient rehab after suffering a stroke with left-sided weakness. She was placed on insulin with good control from hemoglobin A1c of 12.2. Placed on Plavix along with statin and cardiology inserted loop recorder. Patient participated in all intensive therapies and was motivated to improve and she was found to regain enough function with the use of broad base quad cane and smoking cessation counseled and maintained on nicotine patch through the entire hospital course and was deemed stable for discharge to live independently. Labs (last 24 hrs) Laboratory Tests 09/07/18 20:37: Glucometer 345H 09/07/18 21:36: Glucometer 323H 09/08/18 05:25: White Blood Count 7.8, Red Blood Count 5.04, Hemoglobin 14.9, Hematocrit 44, Mean Corpuscular Volume 88, Mean Corpuscular Hemoglobin 30, Mean Corpuscular Hemoglobin Concent 34, Red Cell Distribution Width 13.4, Platelet Count 233, Mean Platelet Volume 10.3, Neutrophils (%) (Auto) 49, Lymphocytes (%) (Auto) 38, Monocytes (%) (Auto) 10, Eosinophils (%) (Auto) 3, Basophils (%) (Auto) 1, Neutrophils # (Auto) 3.8, Lymphocytes # (Auto) 2.9, Monocytes # (Auto) 0.8, Eosinophils # (Auto) 0.2, Basophils # (Auto) 0.1, Sodium Level 139, Potassium Level 4.3, Chloride Level 107, Carbon Dioxide Level 23, Anion Gap 9, Blood Urea Nitrogen 19H, Creatinine 0.69, Estimat Glomerular Filtration Rate > 60, BUN/Creatinine Ratio 28, Glucose Level 174H, Calcium Level 9.1, Corrected Calcium 9.6, Total Bilirubin 0.4, Aspartate Amino Transf (AST/SGOT) 10, Alanine Aminotransferase (ALT/SGPT) 12, Alkaline Phosphatase 72, Total Protein 5.6L, Albumin 3.4 09/08/18 05:37: Glucometer 175H 09/08/18 11:15: Glucometer 187H 09/08/18 16:02: Glucometer 216H 09/08/18 20:38: Glucometer 149H 09/09/18 05:40: Glucometer 230H 09/09/18 11:55: Glucometer 229H 09/09/18 15:32: Glucometer 187H 09/09/18 22:17: Glucometer 204H 09/10/18 05:24: Glucometer 170H 09/10/18 11:03: Glucometer 106 09/10/18 15:18: Glucometer 160H 09/10/18 20:31: Glucometer 195H 09/11/18 05:28: Glucometer 159H 09/11/18 10:52: Glucometer 194H 09/11/18 16:55: Glucometer 127H 09/11/18 20:39: Glucometer 154H 09/12/18 05:26: Glucometer 185H 09/12/18 11:04: Glucometer 208H 09/12/18 15:50: Glucometer 225H 09/12/18 20:45: Glucometer 196H 09/13/18 05:54: Glucometer 108 09/13/18 10:44: Glucometer 191H 09/13/18 15:47: Glucometer 100 09/13/18 20:43: Glucometer 294H 09/14/18 04:56: White Blood Count 7.6, Red Blood Count 4.54, Hemoglobin 13.4, Hematocrit 41, Mean Corpuscular Volume 91, Mean Corpuscular Hemoglobin 30, Mean Corpuscular Hemoglobin Concent 33, Red Cell Distribution Width 13.2, Platelet Count 212, Mean Platelet Volume 10.9H, Neutrophils (%) (Auto) 47, Lymphocytes (%) (Auto) 38, Monocytes (%) (Auto) 11, Eosinophils (%) (Auto) 4, Basophils (%) (Auto) 1, Neutrophils # (Auto) 3.6, Lymphocytes # (Auto) 2.9, Monocytes # (Auto) 0.8, Eosinophils # (Auto) 0.3, Basophils # (Auto) 0.1, Sodium Level 143, Potassium Level 4.0, Chloride Level 110H, Carbon Dioxide Level 21, Anion Gap 12, Blood Urea Nitrogen 22H, Creatinine 0.68, Estimat Glomerular Filtration Rate > 60, BUN/Creatinine Ratio 32, Glucose Level 126H, Calcium Level 8.9, Corrected Calcium 9.5, Total Bilirubin 0.3, Aspartate Amino Transf (AST/SGOT) 25, Alanine Aminotransferase (ALT/SGPT) 35, Alkaline Phosphatase 90, Total Protein 5.4L, Albumin 3.3 09/14/18 05:36: Glucometer 127H 09/14/18 11:04: Glucometer 90 09/14/18 15:54: Glucometer 242H 09/14/18 22:47: Glucometer 242H 09/15/18 05:08: Glucometer 120H 09/15/18 10:48: Glucometer 68L 09/15/18 12:16: Glucometer 161H 09/15/18 15:26: Glucometer 119H 09/15/18 20:18: Glucometer 96 09/16/18 05:23: Glucometer 178H 09/16/18 10:51: Glucometer 170H Pending Labs Laboratory Tests 09/07/18 20:37: Glucometer 345 09/07/18 21:36: Glucometer 323 09/08/18 05:25: White Blood Count 7.8, Red Blood Count 5.04, Hemoglobin 14.9, Hematocrit 44, Mean Corpuscular Volume 88, Mean Corpuscular Hemoglobin 30, Mean Corpuscular Hemoglobin Concent 34, Red Cell Distribution Width 13.4, Platelet Count 233, Mean Platelet Volume 10.3, Neutrophils (%) (Auto) 49, Lymphocytes (%) (Auto) 38, Monocytes (%) (Auto) 10, Eosinophils (%) (Auto) 3, Basophils (%) (Auto) 1, Neutrophils # (Auto) 3.8, Lymphocytes # (Auto) 2.9, Monocytes # (Auto) 0.8, Eosinophils # (Auto) 0.2, Basophils # (Auto) 0.1, Sodium Level 139, Potassium Level 4.3, Chloride Level 107, Carbon Dioxide Level 23, Anion Gap 9, Blood Urea Nitrogen 19, Creatinine 0.69, Estimat Glomerular Filtration Rate > 60, BUN/C reatinine Ratio 28, Glucose Level 174, Calcium Level 9.1, Corrected Calcium 9.6, Total Bilirubin 0.4, Aspartate Amino Transf (AST/SGOT) 10, Alanine Aminotransferase (ALT/SGPT) 12, Alkaline Phosphatase 72, Total Protein 5.6, Albumin 3.4 09/08/18 05:37: Glucometer 175 09/08/18 11:15: Glucometer 187 09/08/18 16:02: Glucometer 216 09/08/18 20:38: Glucometer 149 09/09/18 05:40: Glucometer 230 09/09/18 11:55: Glucometer 229 09/09/18 15:32: Glucometer 187 09/09/18 22:17: Glucometer 204 09/10/18 05:24: Glucometer 170 09/10/18 11:03: Glucometer 106 09/10/18 15:18: Glucometer 160 09/10/18 20:31: Glucometer 195 09/11/18 05:28: Glucometer 159 09/11/18 10:52: Glucometer 194 09/11/18 16:55: Glucometer 127 09/11/18 20:39: Glucometer 154 09/12/18 05:26: Glucometer 185 09/12/18 11:04: Glucometer 208 09/12/18 15:50: Glucometer 225 09/12/18 20:45: Glucometer 196 09/13/18 05:54: Glucometer 108 09/13/18 10:44: Glucometer 191 09/13/18 15:47: Glucometer 100 09/13/18 20:43: Glucometer 294 09/14/18 04:56: White Blood Count 7.6, Red Blood Count 4.54, Hemoglobin 13.4, Hematocrit 41, Mean Corpuscular Volume 91, Mean Corpuscular Hemoglobin 30, Mean Corpuscular Hemoglobin Concent 33, Red Cell Distribution Width 13.2, Platelet Count 212, Mean Platelet Volume 10.9, Neutrophils (%) (Auto) 47, Lymphocytes (%) (Auto) 38, Monocytes (%) (Auto) 11, Eosinophils (%) (Auto) 4, Basophils (%) (Auto) 1, Neutrophils # (Auto) 3.6, Lymphocytes # (Auto) 2.9, Monocytes # (Auto) 0.8, Eosinophils # (Auto) 0.3, Basophils # (Auto) 0.1, Sodium Level 143, Potassium Level 4.0, Chloride Level 110, Carbon Dioxide Level 21, Anion Gap 12, Blood Urea Nitrogen 22, Creatinine 0.68, Estimat Glomerular Filtration Rate > 60, BUN/Creatinine Ratio 32, Glucose Level 126, Calcium Level 8.9, Corrected Calcium 9.5, Total Bilirubin 0.3, Aspartate Amino Transf (AST/SGOT) 25, Alanine Aminotransferase (ALT/SGPT) 35, Alkaline Phosphatase 90, Total Protein 5.4, Albumin 3.3 09/14/18 05:36: Glucometer 127 09/14/18 11:04: Glucometer 90 09/14/18 15:54: Glucometer 242 09/14/18 22:47: Glucometer 242 09/15/18 05:08: Glucometer 120 09/15/18 10:48: Glucometer 68 09/15/18 12:16: Glucometer 161 09/15/18 15:26: Glucometer 119 09/15/18 20:18: Glucometer 96 09/16/18 05:23: Glucometer 178 09/16/18 10:51: Glucometer 170 Discharge Home Medications: Active Scripts Active Advanced Glucose Meter (Blood-Glucose Meter) 1 Each Each Each [facility] Bd Ultra-Fine Pen Needle ([place], Insulin Disposable) 1 Each Dis.needle Each [facility] Novolog Flexpen (Insulin Aspart) 300 Units/3 Ml Solution 15 Units SQ AC Levemir Flextouch (Insulin Detemir) 100 Unit/1 Ml Insuln.pen 20 Unit SQ HS Bupropion HCl Sr (Bupropion HCl) 100 Mg Tablet.er 100 Mg PO BID Lyrica (Pregabalin) 50 Mg Capsule 50 Mg PO HS Atorvastatin Calcium 80 Mg Tablet 80 Mg PO HS Clopidogrel (Clopidogrel Bisulfate) 75 Mg Tablet 75 Mg PO DAILY Reported Advil (Ibuprofen) 200 Mg Tablet 400 Mg PO Q8H PRN Benadryl (Diphenhydramine HCl) 25 Mg Capsule 25 Mg PO HS PRN Multivitamins (Multivitamin) 1 Each Tablet 1 Tab PO DAILY Aspirin EC (Aspirin) 81 Mg Tablet.dr 81 Mg PO DAILY Instructions to patient/family Please see electronic discharge instructions given to patient. Diagnosis/Problems Diagnosis/Problems (1) CVA (cerebral vascular accident) (2) Cerebrovascular small vessel disease (3) Infarction of right basal ganglia (4) Diabetes Status: Chronic Qualifiers: Qualified Codes: E11.59 - Type 2 diabetes mellitus with other circulatory complications; Z79.4 - [facility] (current) use of insulin (5) Unstable angina Status: Resolved (6) CAD (coronary artery disease) (7) HTN (hypertension) (8) Presence of stent in coronary artery (9) Smoker Clinical Quality Measures DVT/VTE Risk/Contraindication: Risk Factor Score Per Nursin RFS Level Per Nursing on Admit: 4+=Very High MIYA CASTILLO DO Sep 16, 2018 08:56
[2018-09-16] MEDS: PATCH REMOVAL TP SCH (09:36)
[2018-09-16] MEDS: NICOTINE 14 MG (NICODERM) PATCH TD SCH (09:37)
[2018-09-16] MEDS: buPROPion SR 100 MG (WELLBUTRIN SR) TAB PO SCH (09:37)
[2018-09-16] MEDS: CLOPIDOGREL 75 MG (PLAVIX) TABLET PO SCH (09:37)
--- NOTE | 2018-09-16 10:53 | Therapy Team Discharge Summary ---
Therapy Discharge Summary Discharge Recommendations Date of Discharge 09/16/2018 Therapy D/C Recommendations: Home w/ Family Support, Physical Therapy Outpatient Physical Therapy This patient was admitted to ARU post acute stay due to a CVA with residual weakness. 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 Upon admission to this unit, she was min assist tranfers, walked short distances with FWW with min assist, and was able to go up/down a step with assist. Treatment has consisted of functional strength and balance training, with focus on transfers and gait with the least restrictive device; we have also incorporated safety education/training. Pt has made excellent progress and is mod indep with transfers, gait and stairs. She has met all goals set at evaluation. Recommend pt follow with outpt PT for continued skilled therapy services as she is currently ambulating with a cane and would like to ambulate indep. Will DC from ARU this date. Occupational Therapy Restricted Funct UE ROM PT Fdc Goals Fdc Goals PT Fdc Goals Time Frame: Sep 21, 2018 Transfers (B,C,W/C) (FIM): 7 (scored a 6) Roll Left to Right (QC): 6 Sit to Lying (QC): 6 Lying-Sitting on Side/Bed(QC): 6 Sit to Stand (QC): 6 Chair/Acw-nq-Fmyqo Xfer(QC): 6 Car Transfer (QC): 6 Does the Patient Walk: Yes Gait (FIM): 6 (met) Gait distance (FIM): 3=150 ft Walk 10 feet (QC): 6 Walk 10ft-Uneven Surface(QC): 6 Walk 50ft with 2 Turns (QC): 6 Walk 150 ft (QC): 6 Gait Assistive Device: FWW Does the Pt use WC or Scooter?: No Stairs (FIM): 6 (met) 1 Step (curb) (QC): 6 4 Steps (QC): 6 12 Steps (QC): 6 Picking up an Object (QC): 4 OT Fdc Goals [employer] Making Machinist Goals Time Frame: Sep 28, 2018 Eating (FIM): 6 Eating (QC): 6 Oral Hygiene (QC): 6 Grooming(FIM): 6 Bathing(FIM): 6 Shower/Bathe Self (QC): 6 Upper Body Dressing(FIM): 6 Upper Body Dressing (QC): 6 Lower Body Dressing(FIM): 6 Lower Body Dressing (QC): 6 On/Off Footwear (QC): 6 Toileting(FIM): 6 Toileting Hygiene (QC): 6 Toilet/Commode Transfer(FIM): 6 Toilet/Commode Transfer (QC): 6 Shower Transfer(FIM): 6 Additional Goals: 1-Demonstrate ADL Tasks, 2-Verbalize Understanding, 3- ImproveStrength/Marco Antonio 1=Demonstrate adherence to instructed precautions during ADL tasks. 2=Patient will verbalize/demonstrate understanding of assistive devices/modifications for ADL. 3=Patient will improve strength/tolerance for activity to enable patient to perform ADL's. BRANDON CERVANTES PT Sep 16, 2018 10:53
--- NOTE | 2018-09-16 11:08 | NUR ---
AUTO CLOCKS REPAIRER faxed outpatient therapy ordered to [facility] [email or web address] and contacted office to arrange PT and OT assessment. At this time patient is scheduled to complete PT evaluation on September 28 at 915 and OT evaluation will be scheduled at a later date, as staffing adjustments are being made. AUTO CLOCKS REPAIRER met with patient and spouse to review any last minute concerns regarding discharge plans home today, neither expressed concerns. Patient did provide AUTO CLOCKS REPAIRER with short-term disability paperwork, AUTO CLOCKS REPAIRER will complete necessary paperwork and obtain Dr. Shaver's signature before sending claim to [place]. Please see discharge summary for further information.
--- NOTE | 2018-09-16 12:49 | Therapy Team Discharge Summary ---
Therapy Discharge Summary Discharge Recommendations Date of Discharge Therapy D/C Recommendations: Home w/ Family Support, Physical Therapy Outpatient Occupational Therapy Pt admitted to ARU following acute hospitalization for CVA with left side weakness. On admission pt required min assist for bathing, and CGA for LE dressing, toileting, and transfers. Skilled OT intervention focused on ADL training, transfers, strengthening, and safety. Pt made good progress with therapy and by discharge is completing basic ADLs and transfers with modified independence. Pt met all OT LTG. Pt discharging home this date with family support. D/C ARU OT at this time. Restricted Funct UE ROM PT Clinical Documentation Improvement Specialist Goals Mcfp Goals PT Clinical Documentation Improvement Specialist Goals Time Frame: Sep 21, 2018 Transfers (B,C,W/C) (FIM): 7 (scored a 6) Roll Left to Right (QC): 6 Sit to Lying (QC): 6 Lying-Sitting on Side/Bed(QC): 6 Sit to Stand (QC): 6 Chair/Jjz-dm-Mapjs Xfer(QC): 6 Car Transfer (QC): 6 Does the Patient Walk: Yes Gait (FIM): 6 (met) Gait distance (FIM): 3=150 ft Walk 10 feet (QC): 6 Walk 10ft-Uneven Surface(QC): 6 Walk 50ft with 2 Turns (QC): 6 Walk 150 ft (QC): 6 Gait Assistive Device: FWW Does the Pt use WC or Scooter?: No Stairs (FIM): 6 (met) 1 Step (curb) (QC): 6 4 Steps (QC): 6 12 Steps (QC): 6 Picking up an Object (QC): 4 OT Clinical Documentation Improvement Specialist Goals Mcfp Goals Time Frame: Sep 28, 2018 Eating (FIM): 6 Eating (QC): 6 Oral Hygiene (QC): 6 Grooming(FIM): 6 Bathing(FIM): 6 Shower/Bathe Self (QC): 6 Upper Body Dressing(FIM): 6 Upper Body Dressing (QC): 6 Lower Body Dressing(FIM): 6 Lower Body Dressing (QC): 6 On/Off Footwear (QC): 6 Toileting(FIM): 6 Toileting Hygiene (QC): 6 Toilet/Commode Transfer(FIM): 6 Toilet/Commode Transfer (QC): 6 Shower Transfer(FIM): 6 Additional Goals: 1-Demonstrate ADL Tasks, 2-Verbalize Understanding, 3- ImproveStrength/Marco Antonio 1=Demonstrate adherence to instructed precautions during ADL tasks. 2=Patient will verbalize/demonstrate understanding of assistive devices/modifications for ADL. 3=Patient will improve strength/tolerance for activity to enable patient to perform ADL's. SOFÍA ABBASI OT Sep 16, 2018 12:49
--- NOTE | 2018-09-16 13:14 | Cardiology Progress Note ---
Cardiology SOAP Progress Note Subjective: No cardiac complaints. Objective: I&O/Vital Signs 09/16/18 09/16/18 05:40 08:00 Temp 97.6 Pulse 77 Resp 18 B/P (MAP) 112/52 (72) Pulse Ox 96 O2 Delivery Room Air Room Air 09/16/18 00:00 Intake Total 1050 ml Balance 1050 ml Weight (Pounds): 167 Weight (Ounces): 0.0 Weight (Calculated Kilograms): [id number] Constitutional: appears stated age, AAO x 3; No apparent distress; well- developed, well-nourished Respiratory: No accessory muscle use, No respiratory distress, No chest tender, No chest expansion is symmetric; chest is bilaterally symmetric; No lungs clear to percussion; lungs clear to auscultation; No crackles, No rhonchi, No rales, No stridor, No wheezing, No pleural rub, No other Cardiovascular: regular rate-rhythm; No irregularly irregular, No extra beats, No parasternal heave is noted, No JVD, No edema, No bradycardia, No tachycardia, No point of maximal impulse, No cardiac thrills are palpable; S1 and S2; No gallop/S3, No gallop/S4, No diastolic murmur, No systolic murmur, No friction rub, No click, No other Gastrointestional: No tender, No soft, No round, No distended, No pulsatile mass, No organomegaly, No guarding, No rebound, No tenderness, No hernia, No mass, No audible bowel sounds, No abnormal bowel sounds, No abdominal bruits, No spleenomegaly, No other Extremities: No normal range of motion, No non-tender, No normal inspection, No pedal edema, No calf tenderness, No normal capillary refill, No pelvis stable, No calf tenderness, No inflammation, No pedal edema, No slow capillary refill, No swelling, No other, No abrasion, No clubbing, No cyanosis, No ecchymosis, No laceration, No no lower extremity edema bilateral, No significant edema, No tenderness, No wound Neurologic/Psychiatric: alert, normal mood/affect, oriented x 3 Skin: No normal color, No warm/dry, No cyanosis, No cool, No diaphoresis, No damp, No ecchymosis, No jaundice, No mottled, No pallor, No rash, No tattoos/piercings, No ulcerations, No rash on exposed areas, No ulcerations on exposed areas, No other Results/Procedures: Labs Laboratory Tests 09/15/18 15:26: Glucometer 119H 09/15/18 20:18: Glucometer 96 09/16/18 05:23: Glucometer 178H 09/16/18 10:51: Glucometer 170H A/P: Assessment/Dx: Right basal ganglia stroke, cryptogenic stroke, History of CAD/PCI. Plan: Inpatient rehabilitation - consistent improvement. Negative workup for etiology of stroke. Stroke has been confirmed on MRI. Bilateral carotid ultrasound is negative. Telemetry negative for any arrhythm ias. Echocardiogram was negative for any intracardiac shunting. Diagnosis is likely cryptogenic stroke. Long-term surveillance for atrial fibrillation is recommended with an implantable loop recorder. I have discussed at length with the patient and informed consent taken. implantable loop recorder done 09/08/2018. Patient is on Plavix for CAD. On statin therapy. Thank you for your consultation. Please call me if you have any questions. Joe Awad MD, FACP, FACC, FSCAI, FHRS, CCDS Interventional Cardiology Cardiac Electrophysiology Vascular Medicine and Endovascular Interventions Keyon AWAD MD Sep 16, 2018 13:14
== END 2018-09-16 11:30 | disposition home or self-care (01) | DRG 42 ==
PROVIDERS: ADMIT Internal Medicine; ATTEND Internal Medicine
PROC: 0JH632Z Insertion of Monitoring Device into Chest Subcutaneous Tissue and Fascia, Percutaneous Approach (ICD-10-PCS; principal; 2018-09-08)
DX: I69.354 Hemiplegia and hemiparesis following cerebral infarction affecting left non-dominant side (principal); E11.65 Type 2 diabetes mellitus with hyperglycemia; E11.40 Type 2 diabetes mellitus with diabetic neuropathy, unspecified; I49.3 Ventricular premature depolarization; I25.10 Atherosclerotic heart disease of native coronary artery without angina pectoris; I10 Essential (primary) hypertension; R60.0 Localized edema; F17.210 Nicotine dependence, cigarettes, uncomplicated; F43.21 Adjustment disorder with depressed mood; E78.5 Hyperlipidemia, unspecified; K21.9 Gastro-esophageal reflux disease without esophagitis; Z95.5 Presence of coronary angioplasty implant and graft
CPT/HCPCS: 36415; 80053; 82962; 85025

== ENCOUNTER → 2018-11-09 | Outpatient (CLI) | payer OTHER ==
[~2018-11-09] MED LIST changes: +ATOR40TA PO; +ATOR80TA76 PO; +BLOO-1350 MC; +BUPR100T8 PO; +CLOP75TA28 PO; +INSU100I14 SQ; +INSU100I29 SQ; +INSU100V16 SC; +INSU100V5 SQ; +NEED-116 MC; +PREG50CA2 PO
== END ==
LOC: LAB 14:10
PROVIDERS: ATTEND Surgery
DX: E11.621 Type 2 diabetes mellitus with foot ulcer (principal); E11.42 Type 2 diabetes mellitus with diabetic polyneuropathy; E11.65 Type 2 diabetes mellitus with hyperglycemia; L97.512 Non-pressure chronic ulcer of other part of right foot with fat layer exposed; I70.235 Atherosclerosis of native arteries of right leg with ulceration of other part of foot; I63.9 Cerebral infarction, unspecified
CPT/HCPCS: 36415; 84134

== ENCOUNTER → 2018-11-09 | Outpatient (CLI) | payer OTHER | LOC: WOUNDCARE 12:22 | PROVIDERS: ATTEND Surgery | DX: E11.621 Type 2 diabetes mellitus with foot ulcer (principal); E11.42 Type 2 diabetes mellitus with diabetic polyneuropathy; E11.65 Type 2 diabetes mellitus with hyperglycemia; L97.512 Non-pressure chronic ulcer of other part of right foot with fat layer exposed; I70.235 Atherosclerosis of native arteries of right leg with ulceration of other part of foot; I63.9 Cerebral infarction, unspecified | CPT/HCPCS: 11042; 87070; 87077; 87205 ==

== ENCOUNTER → 2018-11-16 | Outpatient (CLI) | payer OTHER | LOC: WOUNDCARE 08:51 | PROVIDERS: ATTEND Surgery | DX: E11.621 Type 2 diabetes mellitus with foot ulcer (principal); E11.52 Type 2 diabetes mellitus with diabetic peripheral angiopathy with gangrene; E11.65 Type 2 diabetes mellitus with hyperglycemia; E11.42 Type 2 diabetes mellitus with diabetic polyneuropathy; I96 Gangrene, not elsewhere classified; L97.512 Non-pressure chronic ulcer of other part of right foot with fat layer exposed; I63.9 Cerebral infarction, unspecified | CPT/HCPCS: 11042 ==

== ENCOUNTER → 2018-11-30 | Outpatient (CLI) | payer OTHER ==
[2018-11-30 08:39] LABS: BASOPHILS # (AUTO) 0.1 10^3/uL (0.0-0.1); BASOPHILS % (AUTO) 1 % (0-10); EOSINOPHILS # (AUTO) 0.2 10^3/uL (0.0-0.3); EOSINOPHILS % (AUTO) 4 % (0-10); HEMATOCRIT 44 % (35-52); HEMOGLOBIN 14.8 G/DL (11.5-16.0); LYMPHOCYTES # (AUTO) 1.8 X 10^3 (1.0-4.0); LYMPHOCYTES % (AUTO) 28 % (12-44); MEAN CORPUSCULAR HEMOGLOBIN 30 PG (25-34); MEAN CORPUSCULAR HGB CONC 34 G/DL (32-36); MEAN CORPUSCULAR VOLUME 88 FL (80-99); MEAN PLATELET VOLUME 10.3 FL (7.4-10.4); MONOCYTES # (AUTO) 0.7 X 10^3 (0.0-1.0); MONOCYTES % (AUTO) 10 % (0-12); NEUTROPHILS # (AUTO) 3.8 X 10^3 (1.8-7.8); NEUTROPHILS % (AUTO) 58 % (42-75); PLATELET COUNT 231 10^3/uL (130-400); RED CELL DISTRIBUTION WIDTH 13.1 % (10.0-14.5); WHITE BLOOD COUNT 6.7 10^3/uL (4.3-11.0)
[2018-11-30 09:06] LABS: ALANINE AMINOTRANSFERASE 13 U/L (0-55); ALBUMIN 3.9 GM/DL (3.2-4.5); ALKALINE PHOSPHATASE 86 U/L (40-136); BILIRUBIN,TOTAL 0.4 MG/DL (0.1-1.0); BUN/CREATININE RATIO 26; CALCIUM 9.3 MG/DL (8.5-10.1); CARBON DIOXIDE 22 MMOL/L (21-32); CHLORIDE 108 MMOL/L (98-107); CHOLESTEROL 135 MG/DL (< 200); CREATININE SERUM 0.77 MG/DL (0.60-1.30); GFR ESTIMATED > 60; GLUCOSE 221 MG/DL (70-105); HDL CHOLESTEROL 60 MG/DL (40-60); POTASSIUM 4.4 MMOL/L (3.6-5.0); SODIUM 140 MMOL/L (135-145); TOTAL PROTEIN 6.8 GM/DL (6.4-8.2); TRIGLYCERIDES 59 MG/DL (<150); VLDL CHOLESTEROL 12 MG/DL (5-40)
[2018-11-30 09:07] LABS: URINE CREATININE FOR RATIO 47 MG/DL (30-125); URINE PROTEIN FOR RATIO ONLY < 6 MG/DL (6-12)
== END ==
LOC: LAB 08:09
PROVIDERS: ATTEND Internal Medicine
DX: Z00.00 Encounter for general adult medical examination without abnormal findings (principal); E11.65 Type 2 diabetes mellitus with hyperglycemia; E78.2 Mixed hyperlipidemia
CPT/HCPCS: 36415; 80053; 80061; 82570; 83036; 84156; 84443; 85025

== ENCOUNTER → 2018-11-30 | Outpatient (CLI) | payer OTHER | LOC: WOUNDCARE 08:45 | PROVIDERS: ATTEND Surgery | DX: E11.621 Type 2 diabetes mellitus with foot ulcer (principal); E11.42 Type 2 diabetes mellitus with diabetic polyneuropathy; E11.65 Type 2 diabetes mellitus with hyperglycemia; L97.512 Non-pressure chronic ulcer of other part of right foot with fat layer exposed; I63.9 Cerebral infarction, unspecified | CPT/HCPCS: 99212 ==

== ENCOUNTER → 2018-12-27 | Outpatient (RCR) | payer OTHER | END | disposition home or self-care (01) | PROVIDERS: ATTEND Internal Medicine | DX: I69.352 Hemiplegia and hemiparesis following cerebral infarction affecting left dominant side (principal) ==

== ENCOUNTER 2019-02-09 14:59 | Outpatient (RCR) | payer OTHER | END 2019-03-15 12:31 | disposition home or self-care (01) | PROVIDERS: ATTEND Internal Medicine | DX: I63.9 Cerebral infarction, unspecified (principal); E11.9 Type 2 diabetes mellitus without complications; R26.89 Other abnormalities of gait and mobility; Z79.4 Long term (current) use of insulin ==

== ENCOUNTER → 2019-03-13 | Outpatient (CLI) | payer OTHER ==
[2019-03-13 09:21] LABS: BASOPHILS # (AUTO) 0.1 10^3/uL (0.0-0.1); BASOPHILS % (AUTO) 1 % (0-10); EOSINOPHILS # (AUTO) 0.3 10^3/uL (0.0-0.3); EOSINOPHILS % (AUTO) 3 % (0-10); HEMATOCRIT 44 % (35-52); HEMOGLOBIN 14.7 G/DL (11.5-16.0); LYMPHOCYTES # (AUTO) 1.8 X 10^3 (1.0-4.0); LYMPHOCYTES % (AUTO) 18 % (12-44); MEAN CORPUSCULAR HEMOGLOBIN 29 PG (25-34); MEAN CORPUSCULAR HGB CONC 33 G/DL (32-36); MEAN CORPUSCULAR VOLUME 87 FL (80-99); MEAN PLATELET VOLUME 9.5 FL (7.4-10.4); MONOCYTES # (AUTO) 0.6 X 10^3 (0.0-1.0); MONOCYTES % (AUTO) 6 % (0-12); NEUTROPHILS # (AUTO) 7.1 X 10^3 (1.8-7.8); NEUTROPHILS % (AUTO) 72 % (42-75); PLATELET COUNT 329 10^3/uL (130-400); RED CELL DISTRIBUTION WIDTH 13.5 % (10.0-14.5); WHITE BLOOD COUNT 9.8 10^3/uL (4.3-11.0)
[2019-03-13 09:40] LABS: ALANINE AMINOTRANSFERASE 11 U/L (0-55); ALKALINE PHOSPHATASE 78 U/L (40-136); BILIRUBIN,TOTAL 0.3 MG/DL (0.1-1.0); BUN/CREATININE RATIO 21; CALCIUM 9.5 MG/DL (8.5-10.1); CARBON DIOXIDE 24 MMOL/L (21-32); CHLORIDE 109 MMOL/L (98-107); CHOLESTEROL 154 MG/DL (< 200); CREATININE SERUM 0.85 MG/DL (0.60-1.30); GFR ESTIMATED > 60; GLUCOSE 239 MG/DL (70-105); HDL CHOLESTEROL 41 MG/DL (40-60); POTASSIUM 4.6 MMOL/L (3.6-5.0); SODIUM 141 MMOL/L (135-145); TOTAL PROTEIN 7.2 GM/DL (6.4-8.2); TRIGLYCERIDES 142 MG/DL (<150); VLDL CHOLESTEROL 28 MG/DL (5-40)
== END ==
LOC: LAB 09:02
PROVIDERS: ATTEND Internal Medicine
DX: E11.65 Type 2 diabetes mellitus with hyperglycemia (principal); E78.00 Pure hypercholesterolemia, unspecified; E78.1 Pure hyperglyceridemia
CPT/HCPCS: 36415; 80053; 80061; 83036; 84443; 85025

== ENCOUNTER → 2019-07-17 | Outpatient (CLI) | payer SELFPAY ==
[2019-07-17 09:34] LABS: ALBUMIN 3.9 GM/DL (3.2-4.5); POTASSIUM 4.6 MMOL/L (3.6-5.0)
[2019-07-17 09:35] LABS: CALCIUM 9.2 MG/DL (8.5-10.1)
[2019-07-17 09:36] LABS: TOTAL PROTEIN 7.2 GM/DL (6.4-8.2)
[2019-07-17 09:38] LABS: BILIRUBIN,TOTAL 0.3 MG/DL (0.1-1.0)
[2019-07-17 09:40] LABS: CREATININE SERUM 0.98 MG/DL (0.60-1.30)
== END ==
LOC: LAB 08:53
PROVIDERS: ATTEND Internal Medicine
DX: Z00.00 Encounter for general adult medical examination without abnormal findings (principal); E78.1 Pure hyperglyceridemia; E78.00 Pure hypercholesterolemia, unspecified; E11.65 Type 2 diabetes mellitus with hyperglycemia
CPT/HCPCS: 36415; 80053; 82043; 82465; 83036; 84478

== ENCOUNTER → 2019-07-25 | Outpatient (CLI) | payer SELFPAY | LOC: WOUNDCARE 10:09 | PROVIDERS: ATTEND Surgery | DX: E11.621 Type 2 diabetes mellitus with foot ulcer (principal); E11.42 Type 2 diabetes mellitus with diabetic polyneuropathy; L97.514 Non-pressure chronic ulcer of other part of right foot with necrosis of bone; M86.471 Chronic osteomyelitis with draining sinus, right ankle and foot; I89.0 Lymphedema, not elsewhere classified; T65.222A Toxic effect of tobacco cigarettes, intentional self-harm, initial encounter; F17.218 Nicotine dependence, cigarettes, with other nicotine-induced disorders | CPT/HCPCS: 11044; 87070; 87077; 87205 ==

== ENCOUNTER → 2019-07-25 | Outpatient (CLI) | payer SELFPAY ==
--- NOTE | 2019-07-25 17:29 | Diagnostic Imaging Report ---
INDICATION: Non-pressure chronic ulcer with foot necrosis. COMPARISON: None available TECHNIQUE: 3 radiographs of the right foot dated 07/25/2019 FINDINGS: The osseous structures appear diffusely demineralized. Soft tissue gas and soft tissue irregularity is noted associated with the plantar aspect of the 1st toe distally. The underlying tuft of the 1st digit distal phalanx appears slightly heterogeneous with the cortex appearing ill-defined. No acute fracture or dislocation. Moderate sized plantar calcaneal enthesophyte. Minimal scattered degenerative changes. IMPRESSION: Soft tissue wound associated with the plantar aspect of the 1st toe distally with findings suspect for early osteomyelitis involving the tuft of the 1st digit distal phalanx. Dictated by: Dictated on workstation # [id number]
== END ==
LOC: RAD 12:43
PROVIDERS: ATTEND Surgery
DX: E11.621 Type 2 diabetes mellitus with foot ulcer (principal); E11.42 Type 2 diabetes mellitus with diabetic polyneuropathy; L97.514 Non-pressure chronic ulcer of other part of right foot with necrosis of bone; M86.471 Chronic osteomyelitis with draining sinus, right ankle and foot; I89.0 Lymphedema, not elsewhere classified; T65.222A Toxic effect of tobacco cigarettes, intentional self-harm, initial encounter; F17.218 Nicotine dependence, cigarettes, with other nicotine-induced disorders
CPT/HCPCS: 73630

== ENCOUNTER → 2019-07-31 | Outpatient (CLI) | payer SELFPAY ==
[~2019-07-31] MED LIST changes: +ACET-2650 PO; +ATOR40TA70 PO; +BUPR300T98 PO; +CLOP75TA69 PO; +DOXY100C42 PO; +HYDR-83 PO; +L.AC1CAP6 PO; +LEVO750T39 PO; +PREG100C55 PO
== END ==
LOC: WOUNDCARE 12:40
PROVIDERS: ATTEND Surgery
DX: E11.621 Type 2 diabetes mellitus with foot ulcer (principal); E11.42 Type 2 diabetes mellitus with diabetic polyneuropathy; L97.514 Non-pressure chronic ulcer of other part of right foot with necrosis of bone; E11.52 Type 2 diabetes mellitus with diabetic peripheral angiopathy with gangrene; M86.471 Chronic osteomyelitis with draining sinus, right ankle and foot; I89.0 Lymphedema, not elsewhere classified; T65.222A Toxic effect of tobacco cigarettes, intentional self-harm, initial encounter; F17.218 Nicotine dependence, cigarettes, with other nicotine-induced disorders
CPT/HCPCS: 99214

== ENCOUNTER 2019-08-24 21:42 | Emergency (ER) | payer SELFPAY ==
[~2019-08-24] VITALS: Ht 173 cm; Wt 88.6 kg
[~2019-08-24 21:42] MED LIST changes: +MULT-567 PO; -MULT1TAB69 PO
--- NOTE | 2019-08-24 22:00 | NUR ---
wet dressing applied over right foot wound.
--- NOTE | 2019-08-24 22:04 | ED General ---
General Stated Complaint: POST TOE AMPUTATION/SUTURE SPLIT OPEN Source of Information: Patient Exam Limitations: No Limitations History of Present Illness Date Seen by Provider: Aug 24, 2019 Time Seen by Provider: 22:03 Initial Comments Patient had an amputation of the right great toe 3 weeks ago due to osteomyelitis of that toe. Wound had been healing fine. Today she saw Dr. Loo who took up the last 2 stitches. Tonight the wound dehisced. There is no drainage redness or fevers. Allergies and Home Medications Allergies Coded Allergies: cefdinir (Verified Adverse Reaction, Mild, NAUSEA, yeast infection, 09/04/18) Cephalosporins (Verified Adverse Reaction, Unknown, yeast infections, 09/04/18) Home Medications Acetaminophen 650 Mg Tablet.er, 650-1,300 MG PO Q8H PRN for PAIN-MILD (1-4), (Reported) Aspirin 81 Mg Tablet.dr, 81 MG PO DAILY, (Reported) Atorvastatin Calcium 40 Mg Tablet, 20 MG PO HS, (Reported) TAKES OF A 40MG TAB LAST FILLED 04-17-2019 #30/60 DAY SUPPLY Bupropion HCl 300 Mg Tab.er.24h, 300 MG PO DAILY, (Reported) Clopidogrel Bisulfate 75 Mg Tablet, 75 MG PO DAILY, (Reported) Diphenhydramine HCl 25 Mg Capsule, 25 MG PO HS PRN for SLEEP, (Reported) Insulin Aspart 300 Units/3 Ml Solution, 15 UNITS SQ AC, (Reported) LAST FILLED 05-09-2019 #5 PENS/33 DAY SUPPLY Insulin Detemir 100 Unit/1 Ml Insuln.pen, 20 UNIT SQ HS, (Reported) LAST FILLED 05-09-2019 #5 PENS/75 DAY SUPPLY Lisinopril 5 Mg Tablet, 5 MG PO DAILY, (Reported) Multivitamin 1 Each Tablet, 1 TAB PO DAILY, (Reported) Pregabalin 100 Mg Capsule, 100 MG PO HS, (Reported) Patient Home Medication List Home Medication List Reviewed: Yes Review of Systems Review of Systems Constitutional: no symptoms reported Respiratory: no symptoms reported Cardiovascular: no symptoms reported Musculoskeletal: see HPI Skin: see HPI Past Hwrxebs-Ljtkah-Bdbndc Hx Patient Social History Type Used: Cigarettes 2nd Hand Smoke Exposure: Yes Recent Foreign Travel: No Contact w/Someone Who Travel: No Recent Hopitalizations: No Immunizations Up To Date Tetanus Booster (TDap): Less than 5yrs PED Vaccines UTD: No Date of Pneumonia Vaccine: Jul 30, 2009 Date of Influenza Vaccine: Nov 23, 2013 Seasonal Allergies Seasonal Allergies: Yes Past Medical History Surgeries: Yes (kidney and bladder surgery as a child) Appendectomy, Section, Coronary Stent, Gallbladder Respiratory: No Currently Using CPAP: No Currently Using BIPAP: No Cardiac: Yes Coronary Artery Disease, Hypertension, Irregular Heartbeat Neurological: Yes Neuropathy, Stroke Reproductive Disorders: No Female Reproductive Disorders: Denies Sexually Transmitted Disease: No HIV/AIDS: No Genitourinary: Yes UTI-Chronic Gastrointestinal: Yes Gastroesophageal Reflux, Gall Bladder Disease Musculoskeletal: No Endocrine: Yes Diabetes, Insulin dep HEENT: No Loss of Vision: Denies Hearing Impairment: Denies Cancer: No Psychosocial: No Anxiety, Depression Integumentary: No Blood Disorders: No Adverse Reaction/Blood Tranf: No Family Medical History Arthritis Cataracts Diabetes mellitus 19 MOTHER FH: lupus 19 MOTHER Hypercholesterolemia Hypertension No Family History of: AIDS Abdominal aortic aneurysm [place] Hill's disease Alcoholism Alzheimer's disease Aphasia Asthma Cancer of mouth Cardiovascular disease Colon cancer Completed stroke Congenital disease Congenital heart disease Coronary thrombosis Cystic fibrosis Deafness or hearing loss Dementia Drug abuse Dysphasia Fibrocystic disease of breast Gastroenteritis Glaucoma Headache disorder Infertility Kidney disease Myocardial infarction Neoplasm Not obtainable due to adoption Osteoporosis Parkinson's disease Prostate cancer Psychosocial problem Respiratory disorder Seizure disorder Severe allergy Thyroid disease Tuberculosis Visual disorder Diabetes, Other Conditions/Hx Physical Exam Vital Signs Vital Signs - First Documented 08/24/19 21:50 Temp 36.6 Pulse 89 Resp 16 B/P (MAP) 108/88 (95) Pulse Ox 96 O2 Delivery Room Air Capillary Refill : Height, Weight, BMI Height: 5'8.00" Weight: 166lbs. 0.0oz. [id number]; 29.43 BMI Method:Stated General Appearance: No Apparent Distress, WD/WN Respiratory: Lungs Clear Cardiovascular: Regular Rate, Rhythm Extremity: Other (there is a dehisced wound over the right first distal metatarsal. This measures about 3 cm wide.) Neurologic/Psychiatric: Alert Progress/Results/Core Measures Suspected Sepsis SIRS Temperature: Pulse: Respiratory Rate: Blood Pressure / Mean: Results/Orders My Orders Orders - NETTIE BEAN MD Doxepin Capsule (Sinequan Capsule) (08/24/19 22:30) Wound Dressing-Ed (08/24/19 22:16) Vital Signs/I&O 08/24/19 21:50 Temp 36.6 Pulse 89 Resp 16 B/P (MAP) 108/88 (95) Pulse Ox 96 O2 Delivery Room Air Capillary Refill : Progress Note : Time: 22:14 Progress Note Case was discussed with Dr. Jaime who recommended wet-to-dry dressings and antibi otics. To follow-up with Dr. Loo tomorrow. Departure Impression Primary Impression: Dehiscence of closure of skin Disposition: HOME, SELF-CARE Condition: Stable Departure-Patient Inst. Decision time for Depature: 22:15 Referrals: MIYA CASTILLO DO (PCP/Family) Primary Care Physician Patient Instructions: Wound Dehiscence Add. Discharge Instructions: Wet-to-dry dressings daily. Take antibiotics as prescribed. Call Dr. Loo tomorrow and tell him what happened. Scripts Doxycycline Hyclate (Doxycycline Hyclate) 100 Mg Tablet 100 MG PO BID, #14 TAB 0 Refills Prov: NETTIE BEAN MD 08/24/19 NETTIE BEAN MD Aug 24, 2019 22:03
[2019-08-24] MEDS ORDERED: DOXY100T2 PO (22:21)
[2019-08-24] MEDS ORDERED: DOXEPIN 25 MG (SINEquan) CAP PO SCH (22:30)
[2019-08-24 22:37] VITALS: BP 113/67
--- OUTSIDE RECORDS SUMMARY | 2019-08-24 22:39 | XMS REPORT | Continuity of Care Document ---
Author Organization Unknown Address Unknown Phone Unavailable Allergies Active Description Code Type Severity Reaction Onset Reported/Identified Relationship to Patient Clinical Status Yes CEFDINIR CEFDINIR UNKNOWN Yes CEFDINIR UNKNOWN UNKNOWN Yes cefdinir [id number] Drug Allergy Mild NAUSEA 09/17/2013 Yes cefdinir [id number] Drug Allergy Mild NAUSEA, yeast i 09/04/[id number] allen Allergy Unknown N/A 09/04/2018 Yes Cephalosporins [id number] ug Allergy Unknown yeast infection 09/04/2018 Medications Medication Packaging Start Date St op Date Route Dosage Sig MECLIZINE TAB 25 MG (ANTIVERT) MG 12/29/2016 12/29/2016 PRN ONCE DIAZEPAM SYRINGE INJ 5 MG/CC (VALIUM SYRIN GE) MG 12/29/2016 12/29/2016 [id number] Problems Date Dx Coded Attending Type Code Diagnosis Diagnosed By 01/14/1230 MIYA CASTILLO DO Ot E11.9 TYPE 2 DIABETES MELLITUS WITHOUT COMPLIC 01/14/1230 MIYA CASTILLO DO Ot I63.9 CEREBRAL INFARCTION, UNSPECIFIED 01/14/1230 MIYA CASTILLO DO Ot R26.89 OTHER ABNORMALITIES OF GAIT AND MOBILITY 01/14/1230 MIYA CASTILLO DO Ot Z79.4 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 09/18/2013 BLADIMIR SANDOVAL, Keyon HARRY Ot 250.00 09/18/2013 BLADIMIR SANDOVAL, Keyon HARRY Ot 305 .1 09/18/2013 Keyon GARRISON MD Ot 411 .1 09/18/2013 BLADIMIR SANDOVAL, Keyon HARRY Ot 414.01 09/18/2013 Keyon GARRISON MD Ot V58.69 01/02/2014 EVONNE SANDOVAL FACGayle, PAULINE DIALLOP CCDS Ot 250.00 DIAB FLORES WO COMPL, TYPE II OR UNSPEC TY 01/02/2014 EVONNE SANDOVAL FACGayle, ALI FACP CCDS Ot 272.4 HYPERLIPIDEMIA NEC/NOS 01/02/2014 EVONNE SANDOVAL FACC, ALI FACP CCDS Ot 305.1 TOBACCO USE DISORDER 01/02/2014 EVONNE SANDOVAL FACC, ALI FACP CCDS Ot 401.9 HYPERTENSION NOS 01/02/2014 EVONNE SANDOVAL FACC, ALI FACP CCDS Ot 414.01 CORONARY ATHEROSCLEROSIS OF [place] CORON 01/02/2014 EVONNE SANDOVAL FACC, ALI FACP CCDS Ot 530.81 ESOPHAGEAL REFLUX 01/02/2014 EVONNE SANDOVAL FACC, ALI FACP CCDS Ot 782.3 EDEMA 01/02/2014 EVONNE SANDOVAL FACC, ALI FACP CCDS Ot 786.59 CHEST PAIN NEC 01/02/2014 EVONNE SANDOVAL FACC, PAULINE FACP CCDS Ot V45.82 PERCUTANEOUS TRANSLUM CORON ANGIOPLASTY 01/02/2014 EVONNE SANDOVAL FACC, PAULINE FACP CCDS Ot V58.69 OTH MED,LT,CURRENT USE 01/30/2014 BERRY HUNT TIE LAYER Ot 789.03 01/30/2014 BERRY HUNT TIE LAYER Ot V45.89 11/05/2016 W 250.80 LISA BETES MELLITUS WITH OTHER SPECIFIED MANIFESTATIONS, TYPE II OR UNSPECIFIED TYPE, NOT STATED UNCONTROLLED 11/05/2016 W 272.4 OTHE R AND UNSPECIFIED HYPERLIPIDEMIA 11/05/2016 W 305.1 [employer] USE DISORDER 11/05/2016 W 401.9 UNSP ECIFIED ESSENTIAL HYPERTENSION 11/05/2016 W 414.00 COR ONARY ATHEROSCLEROSIS OF UNSPECIFIED TYPE OF VESSEL, [place] OR GRAFT 11/05/2016 A 783.21 LOS S OF WEIGHT 11/05/2016 W E11.65 TYP E 2 DIABETES MELLITUS WITH HYPERGLYCEMIA 11/05/2016 W E78.4 OTHE R HYPERLIPIDEMIA 11/05/2016 W I10 ESSENT IAL (PRIMARY) HYPERTENSION 11/05/2016 W I25.10 ATH EROSCLEROTIC HEART DISEASE OF [place] CORONARY ARTERY WITHOUT ANGINA PECTORIS 11/05/2016 A R63.4 ABNO RMAL WEIGHT LOSS 11/05/2016 W Z72.0 [employer] USE 11/06/2016 Melva Dietrich A 783.21 LOSS OF WEIGHT 11/06/2016 Mleva Dietrich A R63.4 ABNORMAL WEIGHT LOSS 11/06/2016 Melva Dietrich W 250.80 DIABETES MELLITUS WITH OTHER SPECIFIED MANIFESTATIONS, TYPE II OR UNSPECIFIED TYPE, NOT STATED UNCONTROLLED 11/06/2016 Melva Dietrich W 272.4 OTHER AND UNSPECIFIED HYPERLIPIDEMIA 11/06/2016 Melva Dietrich A 783.21 LOSS OF WEIGHT 11/06/2016 Melva Dietrich W E11.65 TYPE 2 DIABETES MELLITUS WITH HYPERGLYCEMIA 11/06/2016 Melva Dietrich W E78.4 OTHER HYPERLIPIDEMIA 11/06/2016 Yesica Dietricha A R63.4 ABNORMAL WEIGHT LOSS 11/06/2016 Melva Dietrich W 250.80 DIABETES MELLITUS WITH OTHER SPECIFIED MANIFESTATIONS, TYPE II OR UNSPECIFIED TYPE, NOT STATED UNCONTROLLED 11/06/2016 Melva Dietrich W 272.4 OTHER AND UNSPECIFIED HYPERLIPIDEMIA 11/06/2016 Yesica Dietricha A 783.21 LOSS OF WEIGHT 11/06/2016 Melva Dietrich W E11.65 TYPE 2 DIABETES MELLITUS WITH HYPERGLYCEMIA 11/06/2016 Melva Dietrich W E78.4 OTHER HYPERLIPIDEMIA 11/06/2016 Melva Dietrich A R63.4 ABNORMAL WEIGHT LOSS 12/29/2016 Mikel Teixeira A 386.12 VESTIBULAR NEURONITIS 12/29/2016 Mikel Teixeira 599.0 URINARY TRACT INFECTION, SITE NOT SPECIFIED 12/29/2016 Mikel Teixeira H81.23 VESTIBULAR NEURONITIS, BILATERAL 12/29/2016 Mikel Teixeira N39.0 URINARY TRACT INFECTION, SITE NOT SPECIFIED 03/21/2017 C[place] GERMAN W 338.1 1 ACUTE PAIN DUE TO TRAUMA 03/21/2017 CLEVEL[place] GERMAN W 719.0 6 EFFUSION OF LOWER LEG JOINT 03/21/2017 C[place] GERMAN 719.4 6 PAIN IN JOINT INVOLVING LOWER LEG 03/21/2017 [place] GERMAN G89.1 1 ACUTE PAIN DUE TO TRAUMA 03/21/2017 [place] GERMAN M25.4 61 EFFUSION, RIGHT KNEE 03/21/2017 C[place] GERMAN M25.5 61 PAIN IN RIGHT KNEE 03/29/2018 W 462 ACUTE PHARYNGITIS 03/29/2018 W J02.9 ACUT E PHARYNGITIS, UNSPECIFIED 09/04/2018 BERRY HUNT [facility] Ot 789.03 ABDOMINAL PAIN, RIGHT LOWER QUADRANT 09/04/2018 BERRY HUNT CHEN Ot V45.89 POSTSURGICAL STATES NEC 09/07/2018 ANGELIKA CHRISTIANSON MD Ot E11. 65 TYPE 2 DIABETES MELLITUS WITH HYPERGLYCE 09/07/2018 ANGELIKA CHRISTIANSON MD Ot F17.210 NICOTINE DEPENDENCE, CIGARETTES, UNCOMPL 09/07/2018 ANGELIKA CHRISTIANSON MD, Ot G81. 94 HEMIPLEGIA, UNSPECIFIED AFFECTING LEFT N 09/07/2018 ANGELIKA CHRISTIANSON MD Ot I10 ESSENTIAL (PRIMARY) HYPERTENSION 09/07/2018 ANGELIKA CHRISTIANSON MD, Ot I25. 10 ATHSCL HEART DISEASE OF [place] CORONARY 09/07/2018 ANGELIKA CHRISTIANSON MD, Ot I63. 9 CEREBRAL INFARCTION, UNSPECIFIED 09/07/2018 ANGELIKA CHRISTIANSON MD, Ot K21. 9 GASTRO-ESOPHAGEAL REFLUX DISEASE WITHOUT 09/07/2018 ANGELIKA CHRISTIANSON MD Ot Z79. 84 DORR OPERATOR (CURRENT) USE OF ORAL HYPOGLYC 09/07/2018 ANGELIKA CHRISTIANSON MD, Ot Z87.440 PERSONAL HISTORY OF URINARY (TRACT) INFE 09/07/2018 ANGELIKA CHRISTIANSON MD Ot Z95. 5 PRESENCE OF CORONARY ANGIOPLASTY IMPLANT 09/07/2018 ANGELIKA CHRISTIANSON MD, Ot D49. 7 NEOPLM OF UNSP BEHAV OF ENDO GLANDS AND 09/07/2018 ANGELIKA CHRISTIANSON MD Ot E11. 65 TYPE 2 DIABETES MELLITUS WITH HYPERGLYCE 09/07/2018 ANGELIKA CHRISTIANSON MD, Ot F17.210 NICOTINE DEPENDENCE, CIGARETTES, UNCOMPL 09/07/2018 ANGELIKA CHRISTIANSON MD, Ot G81. 94 HEMIPLEGIA, UNSPECIFIED AFFECTING LEFT N 09/07/2018 ANGELIKA CHRISTIANSON MD Ot I10 ESSENTIAL (PRIMARY) HYPERTENSION 09/07/2018 ANGELIKA CHRISTIANSON MD, Ot I25. 10 ATHSCL HEART DISEASE OF [place] CORONARY 09/07/2018 ANGELIKA CHRISTIANSON MD Ot I49. 9 CARDIAC ARRHYTHMIA, UNSPECIFIED 09/07/2018 ANGELIKA CHRISTIANSON MD, Ot I63. 9 CEREBRAL INFARCTION, UNSPECIFIED 09/07/2018 ANGELIKA CHRISTIANSON MD, Ot K21. 9 GASTRO-ESOPHAGEAL REFLUX DISEASE WITHOUT 09/07/2018 ANGELIKA CHRISTIANSON MD Ot Z79. 84 DORR OPERATOR (CURRENT) USE OF ORAL HYPOGLYC 09/07/2018 ANGELIKA CHRISTIANSON MD Ot Z86. 73 PRSNL HX OF TIA (TIA), AND CEREB INFRC W 09/07/2018 ANGELIKA CHRISTIANSON MD Ot Z87.440 PERSONAL HISTORY OF URINARY (TRACT) INFE 09/07/2018 ANGELIKA CHRISTIANSON MD Ot Z95. 5 PRESENCE OF CORONARY ANGIOPLASTY IMPLANT 09/08/2018 ANGELIKA CHRISTIANSON MD Ot E11. 65 TYPE 2 DIABETES MELLITUS WITH HYPERGLYCE 09/08/2018 ANGELIKA CHRISTIANSON MD Ot F17.210 NICOTINE DEPENDENCE, CIGARETTES, UNCOMPL 09/08/2018 ANGELIKA CHRISTIANSON MD, Ot G81. 94 HEMIPLEGIA, UNSPECIFIED AFFECTING LEFT N 09/08/2018 ANGELIKA CHRISTIANSON MD Ot I10 ESSENTIAL (PRIMARY) HYPERTENSION 09/08/2018 ANGELIKA CHRISTIANSON MD Ot I25. 10 ATHSCL HEART DISEASE OF [place] CORONARY 09/08/2018 ANGELIKA CHRISTIANSON MD Ot I63. 9 CEREBRAL INFARCTION, UNSPECIFIED 09/08/2018 ANGELIKA CHRISTIANSON MD Ot K21. 9 GASTRO-ESOPHAGEAL REFLUX DISEASE WITHOUT 09/08/2018 ANGELIKA CHRISTIANSON MD Ot Z79. 84 DORR OPERATOR (CURRENT) USE OF ORAL HYPOGLYC 09/08/2018 ANGELIKA CHRISTIANSON MD Ot Z87.440 PERSONAL HISTORY OF URINARY (TRACT) INFE 09/08/2018 ANGELIKA CHRISTIANSON MD Ot Z95. 5 PRESENCE OF CORONARY ANGIOPLASTY IMPLANT 09/08/2018 ANGELIKA CHRISTIANSON MD Ot E11. 65 TYPE 2 DIABETES MELLITUS WITH HYPERGLYCE 09/08/2018 ANGELIKA CHRISTIANSON MD Ot F17.210 NICOTINE DEPENDENCE, CIGARETTES, UNCOMPL 09/08/2018 ANGELIKA CHRISTIANSON MD Ot G81. 94 HEMIPLEGIA, UNSPECIFIED AFFECTING LEFT N 09/08/2018 ANGELIKA CHRISTIANSON MD Ot I10 ESSENTIAL (PRIMARY) HYPERTENSION 09/08/2018 ANGELIKA CHRISTIANSON MD Ot I25. 10 ATHSCL HEART DISEASE OF [place] CORONARY 09/08/2018 ANGELIKA CHRISTIANSON MD Ot I63. 9 CEREBRAL INFARCTION, UNSPECIFIED 09/08/2018 ANGELIKA CHRISTIANSON MD Ot K21. 9 GASTRO-ESOPHAGEAL REFLUX DISEASE WITHOUT 09/08/2018 ANGELIKA CHRISTIANSON MD Ot Z79. 84 DORR OPERATOR (CURRENT) USE OF ORAL HYPOGLYC 09/08/2018 ANGELIKA CHRISTIANSON MD Ot Z87.440 PERSONAL HISTORY OF URINARY (TRACT) INFE 09/08/2018 ANGELIKA CHRISTIANSON MD Ot Z95. 5 PRESENCE OF CORONARY ANGIOPLASTY IMPLANT 09/08/2018 ANGELIKA CHRISTIANSON MD Ot E11. 65 TYPE 2 DIABETES MELLITUS WITH HYPERGLYCE 09/08/2018 ANGELIKA CHRISTIANSON MD Ot F17.210 NICOTINE DEPENDENCE, CIGARETTES, UNCOMPL 09/08/2018 ANGELIKA CHRISTIANSON MD Ot G81. 94 HEMIPLEGIA, UNSPECIFIED AFFECTING LEFT N 09/08/2018 ANGELIKA CHRISTIANSON MD Ot I10 ESSENTIAL (PRIMARY) HYPERTENSION 09/08/2018 ANGELIKA CHRISTIANSON MD Ot I25. 10 ATHSCL HEART DISEASE OF [place] CORONARY 09/08/2018 ANGELIKA CHRISTIANSON MD Ot I63. 9 CEREBRAL INFARCTION, UNSPECIFIED 09/08/2018 ANGELIKA CHRISTIANSON MD Ot K21. 9 GASTRO-ESOPHAGEAL REFLUX DISEASE WITHOUT 09/08/2018 ANGELIKA CHRISTIANSON MD Ot Z79. 84 DORR OPERATOR (CURRENT) USE OF ORAL HYPOGLYC 09/08/2018 ANGELIKA CHRISTIANSON MD Ot Z87.440 PERSONAL HISTORY OF URINARY (TRACT) INFE 09/08/2018 ANGELIKA CHRISTIANSON MD Ot Z95. 5 PRESENCE OF CORONARY ANGIOPLASTY IMPLANT 09/08/2018 ANGELIKA CHRISTIANSON MD Ot E11. 65 TYPE 2 DIABETES MELLITUS WITH HYPERGLYCE 09/08/2018 ANGELIKA CHRISTIANSON MD Ot F17.210 NICOTINE DEPENDENCE, CIGARETTES, UNCOMPL 09/08/2018 ANGELIKA CHRISTIANSON MD Ot G81. 94 HEMIPLEGIA, UNSPECIFIED AFFECTING LEFT N 09/08/2018 ANGELIKA CHRISTIANSON MD Ot I10 ESSENTIAL (PRIMARY) HYPERTENSION 09/08/2018 ANGELIKA CHRISTIANSON MD Ot I25. 10 ATHSCL HEART DISEASE OF [place] CORONARY 09/08/2018 ANGELIKA CHRISTIANSON MD Ot I63. 9 CEREBRAL INFARCTION, UNSPECIFIED 09/08/2018 ANGELIKA CHRISTIANSON MD, Ot K21. 9 GASTRO-ESOPHAGEAL REFLUX DISEASE WITHOUT 09/08/2018 ANGELIKA CHRISTIANSON MD Ot Z79. 84 CARE HOME (CURRENT) USE OF ORAL HYPOGLYC 09/08/2018 ANGELIKA CHRISTIANSON MD Ot Z87.440 PERSONAL HISTORY OF URINARY (TRACT) INFE 09/08/2018 ANGELIKA CHRISTIANSON MD Ot Z95. 5 PRESENCE OF CORONARY ANGIOPLASTY IMPLANT 09/16/2018 ANNA HESTER MIYA Ot E11.40 TYPE 2 DIABETES MELLITUS WITH DIABETIC N 09/16/2018 ANNA HESTER MIYA Ot E11.65 TYPE 2 DIABETES MELLITUS WITH HYPERGLYCE 09/16/2018 ANNA HESTER MIYA Ot E78.5 HYPERLIPIDEMIA, UNSPECIFIED 09/16/2018 ANNA HESTER MIYA Ot F17.21 0 NICOTINE DEPENDENCE, CIGARETTES, UNCOMPL 09/16/2018 ANNA DO MIYA Ot F43.21 ADJUSTMENT DISORDER WITH DEPRESSED MOOD 09/16/2018 ANNA HESTER MIYA Ot I10 ESSENTIAL (PRIMARY) HYPERTENSION 09/16/2018 ANNA HESTER MIYA Ot I25.10 ATHSCL HEART DISEASE OF [place] CORONARY 09/16/2018 ANNA HESTER MIYA Ot I49.3 VENTRICULAR PREMATURE DEPOLARIZATION 09/16/2018 ANNA HESTER MIYA Ot 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 09/16/2018 ANNA HESTER MIYA Ot K21.9 GASTRO-ESOPHAGEAL REFLUX DISEASE WITHOUT 09/16/2018 ANNA HESTER MIYA Ot R60.0 LOCALIZED EDEMA 09/16/2018 MIYA CASTILLO DO Ot Z95.5 PRESENCE OF CORONARY ANGIOPLASTY IMPLANT 10/04/2018 Keyon GARRISON MD Ot I48.91 UNSPECIFIED ATRIAL FIBRILLATION 10/04/2018 Keyon GARRISON MD Ot I63.89 OTHER CEREBRAL INFARCTION 10/06/2018 Keyon GARRISON MD Ot I48.91 UNSPECIFIED ATRIAL FIBRILLATION 10/06/2018 Keyon GARRISON MD Ot I63.89 OTHER CEREBRAL INFARCTION 11/11/2018 OSIEL HOLLINS MD Ot E11.42 TYPE 2 DIABETES MELLITUS WITH DIABETIC P 11/11/2018 OSIEL HOLLINS MD Ot E11.621 TYPE 2 DIABETES MELLITUS WITH FOOT ULCER 11/11/2018 OSIEL HOLLINS MD Ot E11.65 TYPE 2 DIABETES MELLITUS WITH HYPERGLYCE 11/11/2018 OSIEL HOLLINS MD Ot I63 .9 CEREBRAL INFARCTION, UNSPECIFIED 11/11/2018 OSIEL HOLLINS MD, Ot I70.235 ATHSCL [place] ARTERIES OF RIGHT LEG W UL 11/11/2018 OSIEL HOLLINS MD, Ot L97.512 NON-PRS CHRONIC ULCER OTH PRT RIGHT FOOT 11/11/2018 OSIEL HOLLINS MD, Ot E11.42 TYPE 2 DIABETES MELLITUS WITH DIABETIC P 11/11/2018 OSIEL HOLLINS MD, Ot E11.621 TYPE 2 DIABETES MELLITUS WITH FOOT ULCER 11/11/2018 OSIEL HOLLINS MD, Ot E11.65 TYPE 2 DIABETES MELLITUS WITH HYPERGLYCE 11/11/2018 OSIEL HOLLINS MD, Ot I63 .9 CEREBRAL INFARCTION, UNSPECIFIED 11/11/2018 OSIEL HOLLINS MD, Ot I70.235 ATHSCL [place] ARTERIES OF RIGHT LEG W UL 11/11/2018 OSIEL HOLLINS MD, Ot L97.512 NON-PRS CHRONIC ULCER OTH PRT RIGHT FOOT 11/18/2018 OSIEL HOLLINS MD, Ot E11.42 TYPE 2 DIABETES MELLITUS WITH DIABETIC P 11/18/2018 OSIEL HOLLINS MD Ot E11.52 TYPE 2 DIABETES W DIABETIC PERIPHERAL AN 11/18/2018 OSIEL HOLLINS MD, Ot E11.621 TYPE 2 DIABETES MELLITUS WITH FOOT ULCER 11/18/2018 OSIEL HOLLINS MD, Ot E11.65 TYPE 2 DIABETES MELLITUS WITH HYPERGLYCE 11/18/2018 OSIEL HOLLINS MD, Ot I63 .9 CEREBRAL INFARCTION, UNSPECIFIED 11/18/2018 OSIEL HOLLINS MD Ot I96 GANGRENE, NOT ELSEWHERE CLASSIFIED 11/18/2018 OSIEL HOLLINS MD, Ot L97.512 NON-PRS CHRONIC ULCER OTH PRT RIGHT FOOT 12/02/2018 CASTILLO DO, MIYA Ot E11.65 TYPE 2 DIABETES MELLITUS WITH HYPERGLYCE 12/02/2018 CASTILLO DO, MIYA Ot E78.2 MIXED HYPERLIPIDEMIA 12/02/2018 CASTILLO DO, MIYA Ot Z00.00 ENCNTR FOR GENERAL ADULT MEDICAL EXAM W/ 12/06/2018 OSIEL HOLLINS MD Ot E11.42 TYPE 2 DIABETES MELLITUS WITH DIABETIC P 12/06/2018 OSIEL HOLLINS MD, Ot E11.621 TYPE 2 DIABETES MELLITUS WITH FOOT ULCER 12/06/2018 OSIEL HOLLINS MD Ot E11.65 TYPE 2 DIABETES MELLITUS WITH HYPERGLYCE 12/06/2018 OSIEL HOLLINS MD Ot I63 .9 CEREBRAL INFARCTION, UNSPECIFIED 12/06/2018 OSIEL HOLLINS MD Ot L97.512 NON-PRS CHRONIC ULCER OTH PRT RIGHT FOOT 12/15/2018 CASTILLO DO, MIYA Ot I69.35 2 HEMIPLGA FOLLOWING CEREBRAL INFRC AFF LE 12/27/2018 CASTILLO DO, MIYA Ot I69.35 2 HEMIPLGA FOLLOWING CEREBRAL INFRC AFF LE 01/02/2019 CASTILLO DO, MIYA Ot I69.35 2 HEMIPLGA FOLLOWING CEREBRAL INFRC AFF LE 01/03/2019 CASTILLO DO, MIYA Ot I69.35 2 HEMIPLGA FOLLOWING CEREBRAL INFRC AFF LE 01/07/2019 CASTILLO DO, MIYA Ot I69.35 2 HEMIPLGA FOLLOWING CEREBRAL INFRC AFF LE 01/30/2019 CASTILLO DO, MIYA Ot E11.9 TYPE 2 DIABETES MELLITUS WITHOUT COMPLIC 01/30/2019 CASTILLO DO, MIYA Ot I63.9 CEREBRAL INFARCTION, UNSPECIFIED 01/30/2019 CASTILLO DO, MIYA Ot R26.89 OTHER ABNORMALITIES OF GAIT AND MOBILITY 01/30/2019 CASTILLO DO, MIYA Ot Z79.4 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 03/14/2019 Ot E11.65 TYP E 2 DIABETES MELLITUS WITH HYPERGLYCE 03/14/2019 Ot E78.00 PUR E HYPERCHOLESTEROLEMIA, UNSPECIFIED 03/14/2019 Ot E78.1 PURE HYPERGLYCERIDEMIA 04/18/2019 Ot E11.65 TYP E 2 DIABETES MELLITUS WITH HYPERGLYCE 04/18/2019 Ot E78.00 PUR E HYPERCHOLESTEROLEMIA, UNSPECIFIED 04/18/2019 Ot E78.1 PURE HYPERGLYCERIDEMIA 07/28/2019 OSIEL HOLLINS MD Ot E11.42 TYPE 2 DIABETES MELLITUS WITH DIABETIC P 07/28/2019 OSIEL HOLLINS MD Ot E11.621 TYPE 2 DIABETES MELLITUS WITH FOOT ULCER 07/28/2019 OSIEL HOLLINS MD Ot F17.218 NICOTINE DEPENDENCE, CIGARETTES, W OTH D 07/28/2019 OSIEL HOLLINS MD Ot I89 .0 LYMPHEDEMA, NOT ELSEWHERE CLASSIFIED 07/28/2019 OSIEL HOLLINS MD Ot L97.514 NON-PRS CHRONIC ULCER OTH PRT RIGHT FOOT 07/28/2019 GUNJAN SANDOVAL, OSIEL Cardenas Ot M86.471 CHRONIC OSTEOMYELITIS W DRAINING SINUS, 07/28/2019 GUNJAN SANDOVAL, OSIEL Cardenas Ot T65.222A TOXIC EFFECT OF TOBACCO CIGARETTES, SELF 08/01/2019 CASTILLO DO, MIYA Ot E11.40 TYPE 2 DIABETES MELLITUS WITH DIABETIC N 08/01/2019 CASTILLO DO, MIYA Ot E11.62 1 TYPE 2 DIABETES MELLITUS WITH FOOT ULCER 08/01/2019 CASTILLO DO, MIYA Ot E11.69 TYPE 2 DIABETES MELLITUS WITH OTHER SPEC 08/01/2019 CASTILLO DO, MIYA Ot E78.5 HYPERLIPIDEMIA, UNSPECIFIED 08/01/2019 CASTILLO DO, MIYA Ot F17.21 0 NICOTINE DEPENDENCE, CIGARETTES, UNCOMPL 08/01/2019 CASTILLO DO, MIYA Ot I10 ESSENTIAL (PRIMARY) HYPERTENSION 08/01/2019 CASTILLO DO, MIYA Ot I25.10 ATHSCL HEART DISEASE OF [place] CORONARY 08/01/2019 CASTILLO DO, MIYA Ot J30.2 OTHER SEASONAL ALLERGIC RHINITIS 08/01/2019 CASTILLO DO, MIYA Ot K21.9 GASTRO-ESOPHAGEAL REFLUX DISEASE WITHOUT 08/01/2019 CASTILLO DO, MIYA Ot L97.51 6 NON-PRS CHR ULC OTH PRT R FOOT WITH BNE 08/01/2019 CASTILLO DO, MIYA Ot M86.9 OSTEOMYELITIS, UNSPECIFIED 08/01/2019 CASTILLO DO, MIYA Ot Z79.02 DORR OPERATOR (CURRENT) USE OF ANTITHROMBOTI 08/01/2019 CASTILLO DO, MIYA Ot Z79.4 CARE HOME (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 08/01/2019 CASTILLO DO, MIYA Ot Z86.73 PRSNL HX OF TIA (TIA), AND CEREB INFRC W 08/01/2019 CASTILLO DO, MIYA Ot Z95.5 PRESENCE OF CORONARY ANGIOPLASTY IMPLANT 08/01/2019 CASTILLO DO, MIYA Ot E11.40 TYPE 2 DIABETES MELLITUS WITH DIABETIC N 08/01/2019 CASTILLO DO, MIYA Ot E11.62 1 TYPE 2 DIABETES MELLITUS WITH FOOT ULCER 08/01/2019 CASTILLO DO, MIYA Ot E11.69 TYPE 2 DIABETES MELLITUS WITH OTHER SPEC 08/01/2019 CASTILLO DO, MIYA Ot E78.5 HYPERLIPIDEMIA, UNSPECIFIED 08/01/2019 CASTILLO DO, MIYA Ot F17.21 0 NICOTINE DEPENDENCE, CIGARETTES, UNCOMPL 08/01/2019 CASTILLO DO, MIYA Ot I10 ESSENTIAL (PRIMARY) HYPERTENSION 08/01/2019 CASTILLO DO, MIYA Ot I25.10 ATHSCL HEART DISEASE OF [place] CORONARY 08/01/2019 CASTILLO DO, MIYA Ot J30.2 OTHER SEASONAL ALLERGIC RHINITIS 08/01/2019 CASTILLO DO, MIYA Ot K21.9 GASTRO-ESOPHAGEAL REFLUX DISEASE WITHOUT 08/01/2019 CASTILLO DO, MIYA Ot L97.51 6 NON-PRS [facility] OT PRT R FOOT WITH BNE 08/01/2019 CASTILLO DO, MIYA Ot M86.9 OSTEOMYELITIS, UNSPECIFIED 08/01/2019 CASTILLO DO, MIYA Ot Z79.02 DORR OPERATOR (CURRENT) USE OF ANTITHROMBOTI 08/01/2019 CASTILLO DO, MIYA Ot Z79.4 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 08/01/2019 CASTILLO DO, MIYA Ot Z86.73 PRSNL HX OF TIA (TIA), AND CEREB INFRC W 08/01/2019 CASTILLO DO, MIYA Ot Z95.5 PRESENCE OF CORONARY ANGIOPLASTY IMPLANT 08/01/2019 CASTILLO DO, MIYA Ot E11.40 TYPE 2 DIABETES MELLITUS WITH DIABETIC N 08/01/2019 CASTILLO DO, MIYA Ot E11.62 1 TYPE 2 DIABETES MELLITUS WITH FOOT ULCER 08/01/2019 CASTILLO DO, MIYA Ot E11.69 TYPE 2 DIABETES MELLITUS WITH OTHER SPEC 08/01/2019 CASTILLO DO, MIYA Ot E78.5 HYPERLIPIDEMIA, UNSPECIFIED 08/01/2019 CASTILLO DO, MIYA Ot F17.21 0 NICOTINE DEPENDENCE, CIGARETTES, UNCOMPL 08/01/2019 CASTILLO DO, MIYA Ot I10 ESSENTIAL (PRIMARY) HYPERTENSION 08/01/2019 CASTILLO DO, MIYA Ot I25.10 ATHSCL HEART DISEASE OF [place] CORONARY 08/01/2019 CASTILLO DO, MIYA Ot J30.2 OTHER SEASONAL ALLERGIC RHINITIS 08/01/2019 CASTILLO DO, MIYA Ot K21.9 GASTRO-ESOPHAGEAL REFLUX DISEASE WITHOUT 08/01/2019 CASTILLO DO, MIYA Ot L97.51 6 NON-PRS [facility] OT PRT R FOOT WITH BNE 08/01/2019 CASTILLO DO, MIYA Ot M86.9 OSTEOMYELITIS, UNSPECIFIED 08/01/2019 CASTILLO DO, MIYA Ot Z79.02 CARE HOME (CURRENT) USE OF ANTITHROMBOTI 08/01/2019 CASTILLO DO, MIYA Ot Z79.4 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 08/01/2019 CASTILLO DO, MIYA Ot Z86.73 PRSNL HX OF TIA (TIA), AND CEREB INFRC W 08/01/2019 CASTILLO DO, MIYA Ot Z95.5 PRESENCE OF CORONARY ANGIOPLASTY IMPLANT 08/01/2019 CASTILLO DO, MIYA Ot E11.40 TYPE 2 DIABETES MELLITUS WITH DIABETIC N 08/01/2019 CASTILLO DO, MIYA Ot E11.62 1 TYPE 2 DIABETES MELLITUS WITH FOOT ULCER 08/01/2019 CASTILLO DO, MIYA Ot E11.69 TYPE 2 DIABETES MELLITUS WITH OTHER SPEC 08/01/2019 CASTILLO DO, MIYA Ot E78.5 HYPERLIPIDEMIA, UNSPECIFIED 08/01/2019 CASTILLO DO, MIYA Ot F17.21 0 NICOTINE DEPENDENCE, CIGARETTES, UNCOMPL 08/01/2019 CASTILLO DO, MIYA Ot I10 ESSENTIAL (PRIMARY) HYPERTENSION 08/01/2019 CASTILLO DO, MIYA Ot I25.10 ATHSCL HEART DISEASE OF [place] CORONARY 08/01/2019 CASTILLO DO, MIYA Ot J30.2 OTHER SEASONAL ALLERGIC RHINITIS 08/01/2019 CASTILLO DO, MIYA Ot K21.9 GASTRO-ESOPHAGEAL REFLUX DISEASE WITHOUT 08/01/2019 CASTILLO DO, MIYA Ot L97.51 6 NON-PRS [facility] OTH PRT R FOOT WITH BNE 08/01/2019 CASTILLO DO, MIYA Ot M86.9 OSTEOMYELITIS, UNSPECIFIED 08/01/2019 CASTILLO DO, MIYA Ot Z79.02 CARE HOME (CURRENT) USE OF ANTITHROMBOTI 08/01/2019 CASTILLO DO, MIYA Ot 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.4 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 08/01/2019 CASTILLO DO, MIYA Ot Z86.73 PRSNL HX OF TIA (TIA), AND CEREB INFRC W 08/01/2019 CASTILLO DO, MIYA Ot Z95.5 PRESENCE OF CORONARY ANGIOPLASTY IMPLANT 08/01/2019 CASTILLO DO, MIYA Ot E11.40 TYPE 2 DIABETES MELLITUS WITH DIABETIC N 08/01/2019 CASTILLO DO, MIYA Ot E11.62 1 TYPE 2 DIABETES MELLITUS WITH FOOT ULCER 08/01/2019 CASTILLO DO, MIYA Ot E11.69 TYPE 2 DIABETES MELLITUS WITH OTHER SPEC 08/01/2019 CASTILLO DO, MIYA Ot E78.5 HYPERLIPIDEMIA, UNSPECIFIED 08/01/2019 CASTILLO DO, MIYA Ot F17.21 0 NICOTINE DEPENDENCE, CIGARETTES, UNCOMPL 08/01/2019 CASTILLO DO, MIYA Ot I10 ESSENTIAL (PRIMARY) HYPERTENSION 08/01/2019 CASTILLO DO, MIYA Ot I25.10 ATHSCL HEART DISEASE OF [place] CORONARY 08/01/2019 CASTILLO DO, MIYA Ot J30.2 OTHER SEASONAL ALLERGIC RHINITIS 08/01/2019 CASTILLO DO, MIYA Ot K21.9 GASTRO-ESOPHAGEAL REFLUX DISEASE WITHOUT 08/01/2019 CASTILLO DO, MIYA Ot L97.51 6 NON-PRS [facility] OTH PRT R FOOT WITH BNE 08/01/2019 CASTILLO DO, MIYA Ot M86.9 OSTEOMYELITIS, UNSPECIFIED 08/01/2019 CASTILLO DO, MIYA Ot Z79.02 CARE HOME (CURRENT) USE OF ANTITHROMBOTI 08/01/2019 CASTILLO DO, MIYA Ot 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.4 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 08/01/2019 CASTILLO DO, MIYA Ot Z86.73 PRSNL HX OF TIA (TIA), AND CEREB INFRC W 08/01/2019 CASTILLO DO, MIYA Ot Z95.5 PRESENCE OF CORONARY ANGIOPLASTY IMPLANT 08/01/2019 CASTILLO DO, MIYA Ot E11.40 TYPE 2 DIABETES MELLITUS WITH DIABETIC N 08/01/2019 CASTILLO DO, MIYA Ot E11.62 1 TYPE 2 DIABETES MELLITUS WITH FOOT ULCER 08/01/2019 CASTILLO DO, MIYA Ot E11.69 TYPE 2 DIABETES MELLITUS WITH OTHER SPEC 08/01/2019 CASTILLO DO, MIYA Ot E78.5 HYPERLIPIDEMIA, UNSPECIFIED 08/01/2019 CASTILLO DO, MIYA Ot F17.21 0 NICOTINE DEPENDENCE, CIGARETTES, UNCOMPL 08/01/2019 CASTILLO DO, MIYA Ot I10 ESSENTIAL (PRIMARY) HYPERTENSION 08/01/2019 CASTILLO DO, MIYA Ot I25.10 ATHSCL HEART DISEASE OF [place] CORONARY 08/01/2019 CASTILLO DO, MIYA Ot J30.2 OTHER SEASONAL ALLERGIC RHINITIS 08/01/2019 CASTILLO DO, MIYA Ot K21.9 GASTRO-ESOPHAGEAL REFLUX DISEASE WITHOUT 08/01/2019 CASTILLO DO, MIYA Ot L97.51 6 NON-PRS [facility] PRT R FOOT WITH BNE 08/01/2019 CASTILLO DO, MIYA Ot M86.9 OSTEOMYELITIS, UNSPECIFIED 08/01/2019 CASTILLO DO, MIYA Ot Z79.02 DORR OPERATOR (CURRENT) USE OF ANTITHROMBOTI 08/01/2019 CASTILLO DO, MIYA Ot Z79.4 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 08/01/2019 CASTILLO DO, MIYA Ot Z86.73 PRSNL HX OF TIA (TIA), AND CEREB INFRC W 08/01/2019 CASTILLO DO, MIYA Ot Z95.5 PRESENCE OF CORONARY ANGIOPLASTY IMPLANT 08/03/2019 CASTILLO DO, MIYA Ot E11.40 TYPE 2 DIABETES MELLITUS WITH DIABETIC N 08/03/2019 CASTILLO DO, MIYA Ot E11.62 1 TYPE 2 DIABETES MELLITUS WITH FOOT ULCER 08/03/2019 CASTILLO DO, MIYA Ot E11.69 TYPE 2 DIABETES MELLITUS WITH OTHER SPEC 08/03/2019 CASTILLO DO, MIYA Ot E78.5 HYPERLIPIDEMIA, UNSPECIFIED 08/03/2019 CASTILLO DO, MIYA Ot F17.21 0 NICOTINE DEPENDENCE, CIGARETTES, UNCOMPL 08/03/2019 CASTILLO DO, MIYA Ot I10 ESSENTIAL (PRIMARY) HYPERTENSION 08/03/2019 CASTILLO DO, MIYA Ot I25.10 ATHSCL HEART DISEASE OF [place] CORONARY 08/03/2019 CASTILLO DO, MIYA Ot J30.2 OTHER SEASONAL ALLERGIC RHINITIS 08/03/2019 CASTILLO DO, MIYA Ot K21.9 GASTRO-ESOPHAGEAL REFLUX DISEASE WITHOUT 08/03/2019 CASTILLO DO, MIYA Ot L97.51 6 NON-PRS [facility] PRT R FOOT WITH BNE 08/03/2019 CASTILLO DO, MIYA Ot M86.9 OSTEOMYELITIS, UNSPECIFIED 08/03/2019 CASTILLO DO, MIYA Ot Z79.02 CARE HOME (CURRENT) USE OF ANTITHROMBOTI 08/03/2019 CASTILLO DO, MIYA Ot Z79.4 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 08/03/2019 CASTILLO DO, MIYA Ot Z86.73 PRSNL HX OF TIA (TIA), AND CEREB INFRC W 08/03/2019 CASTILLO DO, MIYA Ot Z95.5 PRESENCE OF CORONARY ANGIOPLASTY IMPLANT 08/03/2019 CASTILLO DO, MIYA Ot E11.40 TYPE 2 DIABETES MELLITUS WITH DIABETIC N 08/03/2019 CASTILLO DO, MIYA Ot E11.62 1 TYPE 2 DIABETES MELLITUS WITH FOOT ULCER 08/03/2019 CASTILOL DO, MIYA Ot E11.65 TYPE 2 DIABETES MELLITUS WITH HYPERGLYCE 08/03/2019 CASTILLO DO, MIYA Ot E11.69 TYPE 2 DIABETES MELLITUS WITH OTHER SPEC 08/03/2019 CASTILLO DO, MIYA Ot E78.5 HYPERLIPIDEMIA, UNSPECIFIED 08/03/2019 CASTILLO DO, MIYA Ot F17.21 0 NICOTINE DEPENDENCE, CIGARETTES, UNCOMPL 08/03/2019 CASTILLO DO, MIYA Ot F32.9 MAJOR DEPRESSIVE DISORDER, SINGLE EPISOD 08/03/2019 CASTILLO DO, MIYA Ot I10 ESSENTIAL (PRIMARY) HYPERTENSION 08/03/2019 CASTILLO DO, MIYA Ot 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 08/03/2019 CASTILLO DO, MIYA Ot 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 08/03/2019 CASTILLO DO, MIYA Ot 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 08/03/2019 CASTILLO DO, MIYA Ot J30.2 OTHER SEASONAL ALLERGIC RHINITIS 08/03/2019 CASTILLO DO, MIYA Ot K21.9 GASTRO-ESOPHAGEAL REFLUX DISEASE WITHOUT 08/03/2019 CASTILLO DO, MIYA Ot L97.51 6 NON-PRS [facility] OT PRT R FOOT WITH BNE 08/03/2019 CASTILLO DO, MIYA Ot M00.9 PYOGENIC ARTHRITIS, UNSPECIFIED 08/03/2019 CASTILLO DO, MIYA Ot M86.9 OSTEOMYELITIS, UNSPECIFIED 08/03/2019 CASTILLO DO, MIYA Ot R45.86 EMOTIONAL LABILITY 08/03/2019 CASTILLO DO, MIYA Ot Z79.02 CARE HOME (CURRENT) USE OF ANTITHROMBOTI 08/03/2019 CASTILLO DO, MIYA Ot Z79.4 CARE HOME (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 08/03/2019 CASTILLO DO, MIYA Ot Z95.5 PRESENCE OF CORONARY ANGIOPLASTY IMPLANT Procedures Code Description Performed By Per liliane On [id number] IN SERT OF MONITOR DEV INTO CHEST SUBCU/F 09/08/2018 [id number] DE TACHMENT AT RIGHT 1ST TOE, COMPLETE, O 08/02/2019 [id number] FL UOROSCOPY OF AORTA, BI LE ART USING L 08/03/2019 Results Test Result Range Microalbumin - 11/06/16 [...] 12/29/16 18:07 PRELIM CULTURE RESULTS >100,000 Gram Negativ e COLLIN / ID to Follow MEDIA PLATED Setup at 18:40 on 12/29/2016 CULTURE SOURCE void Sensi - 12/29/16 18:07 FINAL CULTURE RESULTS Klebsiella pneumoniae ([place] te [facility]) Ampicillin/Sulbactam <=8/4 Ampicillin >16 Amoxicillin/K Clavulanate [...] Tobramycin <=4 Complete blood count (CBC) with automate d white blood cell (WBC) differential - 09/04/18 05:35 Blood leukocytes automated count (number/volume) 11.3 10*3/uL 4.3-11.0 Blood erythrocytes automated count (number/volume) 5.49 10*6/uL 4.35-5.85 Venous blood hemoglobin measurement (mass/volume) 16.4 g/dL 11.5-16.0 Blood hematocrit (volume fraction) 47 % 35-52 Automated erythrocyte mean corpuscular volume 85 [ foz_us] 80-99 Automated erythrocyte mean corpuscular h emoglobin (mass per erythrocyte) 30 pg 25-34 Automated erythrocyte mean corpuscular h emoglobin concentration measurement (mass/volume) 35 g/dL 32-36 Automated erythrocyte distribution width ratio 13. 5 % 10.0- 14.5 Automated blood platelet count [...] 10*3 1.0-4.0 Blood monocytes automated count (number/volume) 0. 9 10*3 0.0-1.0 Automated eosinophil count 0.2 10*3/uL 0 .0-0.3 Automated blood basophil count (count/volume) 0.1 10*3/uL 0.0-0.1 PT panel in platelet poor plasma by coag ulation assay - 09/04/18 05:35 Prothrombin time (PT) in platelet poor plasma by coagu lation assay 12.4 s 12.2-14.7 INR in platelet poor plasma or blood by coagulation as say 0.9 0.8-1.4 Activated partial thromboplastin time (a PTT) in platelet poor plasma bycoagulation assay - 09/04/18 05:35 Activated partial thromboplastin time (a PTT) in platelet poor plasma bycoagulation assay 30 s 24-35 Fibrin D-dimer FEU measurement in platel et poor plasma (mass/volume) - 09/04/18 05:35 Fibrin [...] 5-14 Serum or plasma urea nitrogen measurement (mass/volume ) 12 mg/dL 7-18 Serum or plasma creatinine measurement (mass/volume) 0.83 mg/dL 0.60-1.30 Serum or plasma urea nitrogen/creatinine mass ratio 14 NRG Serum or plasma creatinine measurement w ith calculation of estimated glomerular filtration rate > NRG Serum or plasma glucose measurement (mass/volume) 364 mg/dL 70-105 Serum or plasma calcium measurement (mass/volume) 9.5 mg/dL 8.5-10.1 Serum or plasma total bilirubin measurement (mass/volu me) 0.4 mg/dL 0.1-1.0 Serum or plasma alkaline phosphatase namrata surement (enzymatic activity/volume) 99 U/L 40-136 Serum or plasma aspartate aminotransfera se measurement (enzymatic activity/volume) 20 U/L 5-34 Serum or plasma alanine aminotransferase measurement (enzymatic activity/volume) 12 U/L 0-55 Serum or plasma protein measurement (mass/volume) 7.1 g/dL 6.4-8.2 Serum or plasma albumin measurement (mass/volume) 4.1 g/dL 3.2-4.5 CALCIUM CORRECTED 9.4 mg/dL 8.5-10.1 Serum or plasma troponin i.cardiac measu rement (mass/volume) - 09/04/18 05:35 Serum or plasma troponin i.cardiac measurement (mass/v olume) < ng/mL <0.028 Hemoglobin A1c - 09/04/18 05:35 Blood hemoglobin A1C measurement (mass/volume) 12. 2 % 4.0- 5.6 MEAN BLOOD GLUCOSE 303 % <=126 Capillary blood glucose measurement by g lucometer (mass/volume) - 09/04/18 05:50 Capillary blood glucose measurement by glucometer (mas s/volume) 119 mg/dL 70-110 Complete urinalysis with reflex to cultu re - 09/04/18 06:30 Urine color determination YELLOW NRG Urine clarity determination CLEAR NR G Urine pH measurement by test strip 6.5 5-9 Specific gravity of urine by test strip 1.010 1.016-1.022 Urine protein assay by test strip, semi-quantitative NEGATIVE NEGATIVE Urine glucose detection by automated test strip 4+ NEGATIVE Erythrocytes detection in urine sediment by light micr oscopy NEGATIVE NEGATIVE Urine ketones detection by automated test strip NE GATIVE NEGATIVE Urine nitrite detection by test strip NEGATIVE NEGATIVE Urine total bilirubin detection by test strip NEGA TIVE NEGATIVE Urine urobilinogen measurement by automated test strip (mass/volume) NORMAL NORMAL Urine leukocyte esterase detection by dipstick NEG ATIVE NEGATIVE Automated urine sediment erythrocyte cou nt by microscopy (number/high power field) [HPF] NRG Automated urine sediment leukocyte count by microscopy (number/high power field) NONE NRG Bacteria detection in urine sediment by light microsco py TRACE NRG Squamous epithelial cells detection in u rine sediment by light microscopy 2-5 NRG Crystals detection in urine sediment by light microsco py NONE NRG Casts detection in urine sediment by light microscopy NONE NRG Mucus detection in urine sediment by light microscopy NEGATIVE NRG Complete urinalysis with reflex to culture NO NRG Capillary blood glucose measurement by g lucometer (mass/volume) - 09/04/18 07:37 Capillary blood glucose measurement by glucometer (mas s/volume) 319 mg/dL 70-110 Capillary blood glucose measurement by g lucometer (mass/volume) - 09/04/18 09:06 Capillary blood glucose measurement by glucometer (mas s/volume) 293 mg/dL 70-110 Capillary blood glucose measurement by g lucometer (mass/volume) - 09/04/18 12:27 Capillary blood glucose measurement by glucometer (mas s/volume) 270 mg/dL 70-110 Capillary blood glucose measurement by g lucometer (mass/volume) - 09/04/18 16:51 Capillary blood glucose measurement by glucometer (mas s/volume) 224 mg/dL 70-110 Methicillin resistant Staphylococcus aur eus (MRSA) screening culture - 09/04/18 18:35 Methicillin resistant Staphylococcus aureus (MRSA) scr eening culture NEG NRG Capillary blood glucose measurement by g lucometer (mass/volume) - 09/04/18 21:13 Capillary blood glucose measurement by glucometer (mas s/volume) 213 mg/dL 70-110 Complete blood count (CBC) with automate d white blood cell (WBC) differential - 09/05/18 02:51 Blood leukocytes automated count (number/volume) 7.3 10*3/uL 4.3-11.0 Blood erythrocytes automated count (number/volume) 5.04 10*6/uL 4.35-5.85 Venous blood hemoglobin measurement (mass/volume) 14.8 g/dL 11.5-16.0 Blood hematocrit (volume fraction) 44 % 35-52 Automated erythrocyte mean corpuscular volume 87 [ foz_us] 80-99 Automated erythrocyte mean corpuscular h emoglobin (mass per erythrocyte) 29 pg 25-34 Automated erythrocyte mean corpuscular h emoglobin concentration measurement (mass/volume) 34 g/dL 32-36 Automated erythrocyte distribution width ratio 13. 5 % 10.0- 14.5 Automated blood platelet count [...] 10*3 1.0-4.0 Blood monocytes automated count (number/volume) 0. 6 10*3 0.0-1.0 Automated eosinophil count 0.2 10*3/uL 0 .0-0.3 Automated blood basophil count (count/volume) 0.1 10*3/uL 0.0-0.1 Whole blood basic metabolic panel - 08/16 04/05 02:51 Serum or plasma sodium measurement (moles/volume) 139 mmol/L 135-145 Serum or plasma potassium measurement (moles/volume) 3.8 mmol/L 3.6-5.0 Serum or plasma chloride measurement (moles/volume) 106 mmol/L 98-107 Carbon dioxide 22 mmol/L 21-32 Serum or plasma anion gap determination (moles/volume) 11 mmol/L 5-14 Serum or plasma urea nitrogen measurement (mass/volume ) 13 mg/dL 7-18 Serum or plasma creatinine measurement (mass/volume) 0.76 mg/dL 0.60-1.30 Serum or plasma urea nitrogen/creatinine mass ratio 17 NRG Serum or plasma creatinine measurement w ith calculation of estimated glomerular filtration rate > NRG Serum or plasma glucose measurement (mass/volume) 281 mg/dL 70-105 Serum or plasma calcium measurement (mass/volume) 8.9 mg/dL 8.5-10.1 Serum or plasma phosphate measurement (m ass/volume) - 09/05/18 02:51 Serum or plasma phosphate measurement (mass/volume) 3.9 mg/dL 2.3-4.7 Magnesium - 09/05/18 02:51 Magnesium 1.7 mg/dL 1.8-2.4 Lipid 1996 panel - 09/05/18 02:51 Serum or plasma triglyceride measurement (mass/volume) 104 mg/dL <150 Serum or plasma cholesterol measurement (mass/volume) 151 mg/dL < 200 Serum or plasma cholesterol in HDL measurement (mass/v olume) 45 mg/dL 40-60 Cholesterol in LDL [mass/volume] in serum or plasma by direct assay 97 mg/dL 1-129 Serum or plasma cholesterol in VLDL measurement (mass/ volume) 21 mg/dL 5-40 Capillary blood glucose measurement by g lucometer (mass/volume) - 09/05/18 11:11 Capillary blood glucose measurement by glucometer (mas s/volume) 408 mg/dL 70-110 Capillary blood glucose measurement by g lucometer (mass/volume) - 09/05/18 16:02 Capillary blood glucose measurement by glucometer (mas s/volume) 331 mg/dL 70-110 Capillary blood glucose measurement by g lucometer (mass/volume) - 09/05/18 16:23 Capillary blood glucose measurement by glucometer (mas s/volume) 300 mg/dL 70-110 Capillary blood glucose measurement by g lucometer (mass/volume) - 09/05/18 20:46 Capillary blood glucose measurement by glucometer (mas s/volume) 328 mg/dL 70-110 Capillary blood glucose measurement by g lucometer (mass/volume) - 09/06/18 05:35 Capillary blood glucose measurement by glucometer (mas s/volume) 293 mg/dL 70-110 Capillary blood glucose measurement by g lucometer (mass/volume) - 09/06/18 11:05 Capillary blood glucose measurement by glucometer (mas s/volume) 296 mg/dL 70-110 ANTI-NUCLEAR AB (CHAYO) ANALYZER - 9 14:38 Screening antinuclear antibody (CHAYO) assay by enzyme i mmunoassay <1:80 <1:80 Capillary blood glucose measurement by g lucometer (mass/volume) - 09/06/18 16:14 Capillary blood glucose measurement by glucometer (mas s/volume) 267 mg/dL 70-110 Capillary blood glucose measurement by g lucometer (mass/volume) - 09/06/18 20:32 Capillary blood glucose measurement by glucometer (mas s/volume) 266 mg/dL 70-110 Capillary blood glucose measurement by g lucometer (mass/volume) - 09/07/18 05:36 Capillary blood glucose measurement by glucometer (mas s/volume) 299 mg/dL 70-110 Capillary blood glucose measurement by g lucometer (mass/volume) - 09/07/18 11:23 Capillary blood glucose measurement by glucometer (mas s/volume) 293 mg/dL 70-110 Capillary blood glucose measurement by g lucometer (mass/volume) - 09/07/18 15:16 Capillary blood glucose measurement by glucometer (mas s/volume) 276 mg/dL 70-110 Capillary blood glucose measurement by g lucometer (mass/volume) - 09/07/18 20:37 Capillary blood glucose measurement by glucometer (mas s/volume) 345 mg/dL 70-110 Capillary blood glucose measurement by g lucometer (mass/volume) - 09/07/18 21:36 Capillary blood glucose measurement by glucometer (mas s/volume) 323 mg/dL 70-110 Complete blood count (CBC) with automate d white blood cell (WBC) differential - 09/08/18 05:25 Blood leukocytes automated count (number/volume) 7.8 10*3/uL 4.3-11.0 Blood erythrocytes automated count (number/volume) 5.04 10*6/uL 4.35-5.85 Venous blood hemoglobin measurement (mass/volume) 14.9 g/dL 11.5-16.0 Blood hematocrit (volume fraction) 44 % 35-52 Automated erythrocyte mean corpuscular volume 88 [ foz_us] 80-99 Automated erythrocyte mean corpuscular h emoglobin (mass per erythrocyte) 30 pg 25-34 Automated erythrocyte mean corpuscular h emoglobin concentration measurement (mass/volume) 34 g/dL 32-36 Automated erythrocyte distribution width ratio 13. 4 % 10.0- 14.5 Automated blood platelet count (count/volume) 233 10*3/uL 130-400 Automated blood platelet mean volume measurement 10.3 [foz_us] 7.4-10.4 Automated blood neutrophils/100 leukocytes 49 % 42-75 Automated blood lymphocytes/100 leukocytes 38 % 12-44 Blood monocytes/100 leukocytes 10 % 0-12 Automated blood eosinophils/100 leukocytes 3 % 0-10 Automated blood basophils/100 leukocytes 1 % 0-10 Blood neutrophils automated count (number/volume) 3.8 10*3 1.8-7.8 Blood lymphocytes automated count (number/volume) 2.9 10*3 1.0-4.0 Blood monocytes automated count (number/volume) 0. 8 10*3 0.0-1.0 Automated eosinophil count 0.2 10*3/uL 0 .0-0.3 Automated blood basophil count (count/volume) 0.1 10*3/uL 0.0-0.1 Comprehensive metabolic panel - 09/08/18 05:25 Serum or plasma sodium measurement (moles/volume) 139 mmol/L 135-145 Serum or plasma potassium measurement (moles/volume) 4.3 mmol/L 3.6-5.0 Serum or plasma chloride measurement (moles/volume) 107 mmol/L 98-107 Carbon dioxide 23 mmol/L 21-32 Serum or plasma anion gap determination (moles/volume) 9 mmol/L 5-14 Serum or plasma urea nitrogen measurement (mass/volume ) 19 mg/dL 7-18 Serum or plasma creatinine measurement (mass/volume) 0.69 mg/dL 0.60-1.30 Serum or plasma urea nitrogen/creatinine mass ratio 28 NRG Serum or plasma creatinine measurement w ith calculation of estimated glomerular filtration rate > NRG Serum or plasma glucose measurement (mass/volume) 174 mg/dL 70-105 Serum or plasma calcium measurement (mass/volume) 9.1 mg/dL 8.5-10.1 Serum or plasma total bilirubin measurement (mass/volu me) 0.4 mg/dL 0.1-1.0 Serum or plasma alkaline phosphatase namrata surement (enzymatic activity/volume) 72 U/L 40-136 Serum or plasma aspartate aminotransfera se measurement (enzymatic activity/volume) 10 U/L 5-34 Serum or plasma alanine aminotransferase measurement (enzymatic activity/volume) 12 U/L 0-55 Serum or plasma protein measurement (mass/volume) 5.6 g/dL 6.4-8.2 Serum or plasma albumin measurement (mass/volume) 3.4 g/dL 3.2-4.5 CALCIUM CORRECTED 9.6 mg/dL 8.5-10.1 Capillary blood glucose measurement by g lucometer (mass/volume) - 09/08/18 05:37 Capillary blood glucose measurement by glucometer (mas s/volume) 175 mg/dL 70-110 Capillary blood glucose measurement by g lucometer (mass/volume) - 09/08/18 11:15 Capillary blood glucose measurement by glucometer (mas s/volume) 187 mg/dL 70-110 Capillary blood glucose measurement by g lucometer (mass/volume) - 09/08/18 16:02 Capillary blood glucose measurement by glucometer (mas s/volume) 216 mg/dL 70-110 Capillary blood glucose measurement by g lucometer (mass/volume) - 09/08/18 20:38 Capillary blood glucose measurement by glucometer (mas s/volume) 149 mg/dL 70-110 Capillary blood glucose measurement by g lucometer (mass/volume) - 09/09/18 05:40 Capillary blood glucose measurement by glucometer (mas s/volume) 230 mg/dL 70-110 Capillary blood glucose measurement by g lucometer (mass/volume) - 09/09/18 11:55 Capillary blood glucose measurement by glucometer (mas s/volume) 229 mg/dL 70-110 Capillary blood glucose measurement by g lucometer (mass/volume) - 09/09/18 15:32 Capillary blood glucose measurement by glucometer (mas s/volume) 187 mg/dL 70-110 Capillary blood glucose measurement by g lucometer (mass/volume) - 09/09/18 22:17 Capillary blood glucose measurement by glucometer (mas s/volume) 204 mg/dL 70-110 Capillary blood glucose measurement by g lucometer (mass/volume) - 09/10/18 05:24 Capillary blood glucose measurement by glucometer (mas s/volume) 170 mg/dL 70-110 Capillary blood glucose measurement by g lucometer (mass/volume) - 09/10/18 11:03 Capillary blood glucose measurement by glucometer (mas s/volume) 106 mg/dL 70-110 Capillary blood glucose measurement by g lucometer (mass/volume) - 09/10/18 15:18 Capillary blood glucose measurement by glucometer (mas s/volume) 160 mg/dL 70-110 Capillary blood glucose measurement by g lucometer (mass/volume) - 09/10/18 20:31 Capillary blood glucose measurement by glucometer (mas s/volume) 195 mg/dL 70-110 Capillary blood glucose measurement by g lucometer (mass/volume) - 09/11/18 05:28 Capillary blood glucose measurement by glucometer (mas s/volume) 159 mg/dL 70-110 Capillary blood glucose measurement by g lucometer (mass/volume) - 09/11/18 10:52 Capillary blood glucose measurement by glucometer (mas s/volume) 194 mg/dL 70-110 Capillary blood glucose measurement by g lucometer (mass/volume) - 09/11/18 16:55 Capillary blood glucose measurement by glucometer (mas s/volume) 127 mg/dL 70-110 Capillary blood glucose measurement by g lucometer (mass/volume) - 09/11/18 20:39 Capillary blood glucose measurement by glucometer (mas s/volume) 154 mg/dL 70-110 Capillary blood glucose measurement by g lucometer (mass/volume) - 09/12/18 05:26 Capillary blood glucose measurement by glucometer (mas s/volume) 185 mg/dL 70-110 Capillary blood glucose measurement by g lucometer (mass/volume) - 09/12/18 11:04 Capillary blood glucose measurement by glucometer (mas s/volume) 208 mg/dL 70-110 Capillary blood glucose measurement by g lucometer (mass/volume) - 09/12/18 15:50 Capillary blood glucose measurement by glucometer (mas s/volume) 225 mg/dL 70-110 Capillary blood glucose measurement by g lucometer (mass/volume) - 09/12/18 20:45 Capillary blood glucose measurement by glucometer (mas s/volume) 196 mg/dL 70-110 Capillary blood glucose measurement by g lucometer (mass/volume) - 09/13/18 05:54 Capillary blood glucose measurement by glucometer (mas s/volume) 108 mg/dL 70-110 Capillary blood glucose measurement by g lucometer (mass/volume) - 09/13/18 10:44 Capillary blood glucose measurement by glucometer (mas s/volume) 191 mg/dL 70-110 Capillary blood glucose measurement by g lucometer (mass/volume) - 09/13/18 15:47 Capillary blood glucose measurement by glucometer (mas s/volume) 100 mg/dL 70-110 Capillary blood glucose measurement by g lucometer (mass/volume) - 09/13/18 20:43 Capillary blood glucose measurement by glucometer (mas s/volume) 294 mg/dL 70-110 Complete blood count (CBC) with automate d white blood cell (WBC) differential - 09/14/18 04:56 Blood leukocytes automated count (number/volume) 7.6 10*3/uL 4.3-11.0 Blood erythrocytes automated count (number/volume) 4.54 10*6/uL 4.35-5.85 Venous blood hemoglobin measurement (mass/volume) 13.4 g/dL 11.5-16.0 Blood hematocrit (volume fraction) 41 % 35-52 Automated erythrocyte mean corpuscular volume 91 [ foz_us] 80-99 Automated erythrocyte mean corpuscular h emoglobin (mass per erythrocyte) 30 pg 25-34 Automated erythrocyte mean corpuscular h emoglobin concentration measurement (mass/volume) 33 g/dL 32-36 Automated erythrocyte distribution width ratio 13. 2 % 10.0- 14.5 Automated blood platelet count (count/volume) 212 10*3/uL 130-400 Automated blood platelet mean volume measurement 10.9 [foz_us] 7.4-10.4 Automated blood neutrophils/100 leukocytes 47 % 42-75 Automated blood lymphocytes/100 leukocytes 38 % 12-44 Blood monocytes/100 leukocytes 11 % 0-12 Automated blood eosinophils/100 leukocytes 4 % 0-10 Automated blood basophils/100 leukocytes 1 % 0-10 Blood neutrophils automated count (number/volume) 3.6 10*3 1.8-7.8 Blood lymphocytes automated count (number/volume) 2.9 10*3 1.0-4.0 Blood monocytes automated count (number/volume) 0. 8 10*3 0.0-1.0 Automated eosinophil count 0.3 10*3/uL 0 .0-0.3 Automated blood basophil count (count/volume) 0.1 10*3/uL 0.0-0.1 Comprehensive metabolic panel - 09/14/18 04:56 Serum or plasma sodium measurement (moles/volume) 143 mmol/L 135-145 Serum or plasma potassium measurement (moles/volume) 4.0 mmol/L 3.6-5.0 Serum or plasma chloride measurement (moles/volume) 110 mmol/L 98-107 Carbon dioxide 21 mmol/L 21-32 Serum or plasma anion gap determination (moles/volume) 12 mmol/L 5-14 Serum or plasma urea nitrogen measurement (mass/volume ) 22 mg/dL 7-18 Serum or plasma creatinine measurement (mass/volume) 0.68 mg/dL 0.60-1.30 Serum or plasma urea nitrogen/creatinine mass ratio 32 NRG Serum or plasma creatinine measurement w ith calculation of estimated glomerular filtration rate > NRG Serum or plasma glucose measurement (mass/volume) 126 mg/dL 70-105 Serum or plasma calcium measurement (mass/volume) 8.9 mg/dL 8.5-10.1 Serum or plasma total bilirubin measurement (mass/volu me) 0.3 mg/dL 0.1-1.0 Serum or plasma alkaline phosphatase namrata surement (enzymatic activity/volume) 90 U/L 40-136 Serum or plasma aspartate aminotransfera se measurement (enzymatic activity/volume) 25 U/L 5-34 Serum or plasma alanine aminotransferase measurement (enzymatic activity/volume) 35 U/L 0-55 Serum or plasma protein measurement (mass/volume) 5.4 g/dL 6.4-8.2 Serum or plasma albumin measurement (mass/volume) 3.3 g/dL 3.2-4.5 CALCIUM CORRECTED 9.5 mg/dL 8.5-10.1 Capillary blood glucose measurement by g lucometer (mass/volume) - 09/14/18 05:36 Capillary blood glucose measurement by glucometer (mas s/volume) 127 mg/dL 70-110 Capillary blood glucose measurement by g lucometer (mass/volume) - 09/14/18 11:04 Capillary blood glucose measurement by glucometer (mas s/volume) 90 mg/dL 70-110 Capillary blood glucose measurement by g lucometer (mass/volume) - 09/14/18 15:54 Capillary blood glucose measurement by glucometer (mas s/volume) 242 mg/dL 70-110 Capillary blood glucose measurement by g lucometer (mass/volume) - 09/14/18 22:47 Capillary blood glucose measurement by glucometer (mas s/volume) 242 mg/dL 70-110 Capillary blood glucose measurement by g lucometer (mass/volume) - 09/15/18 05:08 Capillary blood glucose measurement by glucometer (mas s/volume) 120 mg/dL 70-110 Capillary blood glucose measurement by g lucometer (mass/volume) - 09/15/18 10:48 Capillary blood glucose measurement by glucometer (mas s/volume) 68 mg/dL 70-110 Capillary blood glucose measurement by g lucometer (mass/volume) - 09/15/18 12:16 Capillary blood glucose measurement by glucometer (mas s/volume) 161 mg/dL 70-110 Capillary blood glucose measurement by g lucometer (mass/volume) - 09/15/18 15:26 Capillary blood glucose measurement by glucometer (mas s/volume) 119 mg/dL 70-110 Capillary blood glucose measurement by g lucometer (mass/volume) - 09/15/18 20:18 Capillary blood glucose measurement by glucometer (mas s/volume) 96 mg/dL 70-110 Capillary blood glucose measurement by g lucometer (mass/volume) - 09/16/18 05:23 Capillary blood glucose measurement by glucometer (mas s/volume) 178 mg/dL 70-110 Capillary blood glucose measurement by g lucometer (mass/volume) - 09/16/18 10:51 Capillary blood glucose measurement by glucometer (mas s/volume) 170 mg/dL 70-110 Gram stain microscopy - 11/09/18 13:30 Gram stain microscopy no bacteria seen NRG Bacteria identification in wound by cult ure - 11/09/18 13:30 Bacteria identification in wound by culture [id number] NRG FREE TEXT EXTERNAL NO SUSCEPTIBILITY PERFORMED NRG QUANTITY OF GROWTH FEW NRG Dirithromycin susceptibility test by dis k diffusion - 11/09/18 13:30 Oxacillin susceptibility test by minimum inhibitory co ncentration 0.5 NRG Clindamycin susceptibility test by minimum inhibitory concentration R NRG Erythromycin susceptibility test by minimum inhibitory concentration > NRG Trimethoprim/sulfamethoxazole susceptibi lity test by minimum inhibitoryconcentration > NRG Vancomycin susceptibility test by minimum inhibitory c oncentration 1 NRG Levofloxacin susceptibility test by minimum inhibitory concentration <= NRG Rifampin susceptibility test by minimum inhibitory con centration <= NRG Cefazolin susceptibility test by minimum inhibitory co ncentration <= NRG Linezolid susceptibility test by minimum inhibitory co ncentration 2 NRG Moxifloxacin susceptibility test by minimum inhibitory concentration <= NRG Minocycline susc COLLIN <= NRG Prealbumin - 11/09/18 14:20 Serum or plasma prealbumin measurement (mass/volume) 14.6 % 18.0-37.0 Complete blood count (CBC) with automate d white blood cell (WBC) differential - 11/30/18 08:20 Blood leukocytes automated count (number/volume) 6.7 10*3/uL 4.3-11.0 Blood erythrocytes automated count (number/volume) 5.00 10*6/uL 4.35-5.85 Venous blood hemoglobin measurement (mass/volume) 14.8 g/dL 11.5-16.0 Blood hematocrit (volume fraction) 44 % 35-52 Automated erythrocyte mean corpuscular volume 88 [ foz_us] 80-99 Automated erythrocyte mean corpuscular h emoglobin (mass per erythrocyte) 30 pg 25-34 Automated erythrocyte mean corpuscular h emoglobin concentration measurement (mass/volume) 34 g/dL 32-36 Automated erythrocyte distribution width ratio 13. 1 % 10.0- 14.5 Automated blood platelet count (count/volume) 231 10*3/uL 130-400 Automated blood platelet mean volume measurement 10.3 [foz_us] 7.4-10.4 Automated blood neutrophils/100 leukocytes 58 % 42-75 Automated blood lymphocytes/100 leukocytes 28 % 12-44 Blood monocytes/100 leukocytes 10 % 0-12 Automated blood eosinophils/100 leukocytes 4 % 0-10 Automated blood basophils/100 leukocytes 1 % 0-10 Blood neutrophils automated count (number/volume) 3.8 10*3 1.8-7.8 Blood lymphocytes automated count (number/volume) 1.8 10*3 1.0-4.0 Blood monocytes automated count (number/volume) 0. 7 10*3 0.0-1.0 Automated eosinophil count 0.2 10*3/uL 0 .0-0.3 Automated blood basophil count (count/volume) 0.1 10*3/uL 0.0-0.1 Comprehensive metabolic panel - 11/30/18 08:20 Serum or plasma sodium measurement (moles/volume) 140 mmol/L 135-145 Serum or plasma potassium measurement (moles/volume) 4.4 mmol/L 3.6-5.0 Serum or plasma chloride measurement (moles/volume) 108 mmol/L 98-107 Carbon dioxide 22 mmol/L 21-32 Serum or plasma anion gap determination (moles/volume) 10 mmol/L 5-14 Serum or plasma urea nitrogen measurement (mass/volume ) 20 mg/dL 7-18 Serum or plasma creatinine measurement (mass/volume) 0.77 mg/dL 0.60-1.30 Serum or plasma urea nitrogen/creatinine mass ratio 26 NRG Serum or plasma creatinine measurement w ith calculation of estimated glomerular filtration rate > NRG Serum or plasma glucose measurement (mass/volume) 221 mg/dL 70-105 Serum or plasma calcium measurement (mass/volume) 9.3 mg/dL 8.5-10.1 Serum or plasma total bilirubin measurement (mass/volu me) 0.4 mg/dL 0.1-1.0 Serum or plasma alkaline phosphatase [place] surement (enzymatic activity/volume) 86 U/L 40-136 Serum or plasma aspartate aminotransfera se measurement (enzymatic activity/volume) 12 U/L 5-34 Serum or plasma alanine aminotransferase measurement (enzymatic activity/volume) 13 U/L 0-55 Serum or plasma protein measurement (mass/volume) 6.8 g/dL 6.4-8.2 Serum or plasma albumin measurement (mass/volume) 3.9 g/dL 3.2-4.5 CALCIUM CORRECTED 9.4 mg/dL 8.5-10.1 Lipid 1996 panel - 11/30/18 08:20 Serum or plasma triglyceride measurement (mass/volume) 59 mg/dL <150 Serum or plasma cholesterol measurement (mass/volume) 135 mg/dL < 200 Serum or plasma cholesterol in HDL measurement (mass/v olume) 60 mg/dL 40-60 Cholesterol in LDL [mass/volume] in serum or plasma by direct assay 62 mg/dL 1-129 Serum or plasma cholesterol in VLDL measurement (mass/ volume) 12 mg/dL 5-40 THYROID STIMULATING HORMONE - 11/30/18 0 8:20 THYROID STIMULATING HORMONE 0.88 u[iU]/mL 0.35-4.94 Hemoglobin A1c measurement - 11/30/18 08 :20 Blood hemoglobin A1C measurement (mass/volume) 7.1 % 4.0-5.6 MEAN BLOOD GLUCOSE 157 % <=126 Urine protein/creatinine mass ratio - 08:25 Urine protein measurement (mass/volume) < mg/dL 6-12 Urine creatinine measurement (mass/volume) 47 mg/d L 30-125 Urine protein/creatinine mass ratio TNP NRG Complete blood count (CBC) with automate d white blood cell (WBC) differential - 03/13/19 09:15 Blood leukocytes automated count (number/volume) 9.8 10*3/uL 4.3-11.0 Blood erythrocytes automated count (number/volume) 5.08 10*6/uL 4.35-5.85 Venous blood hemoglobin measurement (mass/volume) 14.7 g/dL 11.5-16.0 Blood hematocrit (volume fraction) 44 % 35-52 Automated erythrocyte mean corpuscular volume 87 [ foz_us] 80-99 Automated erythrocyte mean corpuscular h emoglobin (mass per erythrocyte) 29 pg 25-34 Automated erythrocyte mean corpuscular h emoglobin concentration measurement (mass/volume) 33 g/dL 32-36 Automated erythrocyte distribution width ratio 13. 5 % 10.0- 14.5 Automated blood platelet count (count/volume) 329 10*3/uL 130-400 Automated blood platelet mean volume measurement 9.5 [foz_us] 7.4-10.4 Automated blood neutrophils/100 leukocytes 72 % 42-75 Automated blood lymphocytes/100 leukocytes 18 % 12-44 Blood monocytes/100 leukocytes 6 % 0-12 Automated blood eosinophils/100 leukocytes 3 % 0-10 Automated blood basophils/100 leukocytes 1 % 0-10 Blood neutrophils automated count (number/volume) 7.1 10*3 1.8-7.8 Blood lymphocytes automated count (number/volume) 1.8 10*3 1.0-4.0 Blood monocytes automated count (number/volume) 0. 6 10*3 0.0-1.0 Automated eosinophil count 0.3 10*3/uL 0 .0-0.3 Automated blood basophil count (count/volume) 0.1 10*3/uL 0.0-0.1 Comprehensive metabolic panel - 03/13/19 09:15 Serum or plasma sodium measurement (moles/volume) 141 mmol/L 135-145 Serum or plasma potassium measurement (moles/volume) 4.6 mmol/L 3.6-5.0 Serum or plasma chloride measurement (moles/volume) 109 mmol/L 98-107 Carbon dioxide 24 mmol/L 21-32 Serum or plasma anion gap determination (moles/volume) 8 mmol/L 5-14 Serum or plasma urea nitrogen measurement (mass/volume ) 18 mg/dL 7-18 Serum or plasma creatinine measurement (mass/volume) 0.85 mg/dL 0.60-1.30 Serum or plasma urea nitrogen/creatinine mass ratio 21 NRG Serum or plasma creatinine measurement w ith calculation of estimated glomerular filtration rate > NRG Serum or plasma glucose measurement (mass/volume) 239 mg/dL 70-105 Serum or plasma calcium measurement (mass/volume) 9.5 mg/dL 8.5-10.1 Serum or plasma total bilirubin measurement (mass/volu me) 0.3 mg/dL 0.1-1.0 Serum or plasma alkaline phosphatase namr[place] surement (enzymatic activity/volume) 78 U/L 40-136 Serum or plasma aspartate aminotransfera se measurement (enzymatic activity/volume) 11 U/L 5-34 Serum or plasma alanine aminotransferase measurement (enzymatic activity/volume) 11 U/L 0-55 Serum or plasma protein measurement (mass/volume) 7.2 g/dL 6.4-8.2 Serum or plasma albumin measurement (mass/volume) 4.0 g/dL 3.2-4.5 CALCIUM CORRECTED 9.5 mg/dL 8.5-10.1 Lipid 1996 panel - 03/13/19 09:15 Serum or plasma triglyceride measurement (mass/volume) 142 mg/dL <150 Serum or plasma cholesterol measurement (mass/volume) 154 mg/dL < 200 Serum or plasma cholesterol in HDL measurement (mass/v olume) 41 mg/dL 40-60 Cholesterol in LDL [mass/volume] in serum or plasma by direct assay 99 mg/dL 1-129 Serum or plasma cholesterol in VLDL measurement (mass/ volume) 28 mg/dL 5-40 THYROID STIMULATING HORMONE - 03/13/19 0 9:15 THYROID STIMULATING HORMONE 1.07 u[iU]/mL 0.35-4.94 Hemoglobin A1c measurement - 03/13/19 09 :15 Blood hemoglobin A1C measurement (mass/volume) 7.8 % 4.0-5.6 MEAN BLOOD GLUCOSE 177 % <=126 Comprehensive metabolic panel - 07/17/19 09:19 Serum or plasma sodium measurement (moles/volume) 138 mmol/L 135-145 Serum or plasma potassium measurement (moles/volume) 4.6 mmol/L 3.6-5.0 Serum or plasma chloride measurement (moles/volume) 108 mmol/L 98-107 Carbon dioxide 21 mmol/L 21-32 Serum or plasma anion gap determination (moles/volume) 9 mmol/L 5-14 Serum or plasma urea nitrogen measurement (mass/volume ) 21 mg/dL 7-18 Serum or plasma creatinine measurement (mass/volume) 0.98 mg/dL 0.60-1.30 Serum or plasma urea nitrogen/creatinine mass ratio 21 NRG Serum or plasma creatinine measurement w ith calculation of estimated glomerular filtration rate 58 NRG Serum or plasma glucose measurement (mass/volume) 293 mg/dL 70-105 Serum or plasma calcium measurement (mass/volume) 9.2 mg/dL 8.5-10.1 Serum or plasma total bilirubin measurement (mass/volu me) 0.3 mg/dL 0.1-1.0 Serum or plasma alkaline phosphatase namrata surement (enzymatic activity/volume) 99 U/L 40-136 Serum or plasma aspartate aminotransfera se measurement (enzymatic activity/volume) 10 U/L 5-34 Serum or plasma alanine aminotransferase measurement (enzymatic activity/volume) 10 U/L 0-55 Serum or plasma protein measurement (mass/volume) 7.2 g/dL 6.4-8.2 Serum or plasma albumin measurement (mass/volume) 3.9 g/dL 3.2-4.5 CALCIUM CORRECTED 9.3 mg/dL 8.5-10.1 Serum or plasma triglyceride measurement (mass/volume) - 07/17/19 09:19 Serum or plasma triglyceride measurement (mass/volume) 100 mg/dL <150 Serum or plasma cholesterol measurement (mass/volume) - 07/17/19 09:19 Serum or plasma cholesterol measurement (mass/volume) 169 mg/dL < 200 Hemoglobin A1c measurement - 07/17/19 09 :19 Blood hemoglobin A1C measurement (mass/volume) 8.6 % 4.0-5.6 MEAN BLOOD GLUCOSE 200 % <=126 Urine microalbumin measurement by test s trip (mass/volume) - 07/17/19 09:19 MICROALBUMIN/CREATININE RATIO 223.0 mg/g{Cre} 0.0-30.0 Urine creatinine measurement (mass/volume) 10 % NRG Albumin/creatinine ratio panel in random urine for detection of microalbuminuria 22.3 % 0.0-20.0 CULTURE, ANAEROBIC AND AEROBIC - 0 09:16 CULTURE, ANAEROBIC BACTERIA W/GRAM STAIN SEE NOTE NRG CULTURE, AEROBIC BACTERIA SEE NOTE NRG Gram stain microscopy - 07/25/19 12:10 Gram stain microscopy No bacteria seen NRG Bacteria identification in wound by cult ure - 07/25/19 12:10 Bacteria identification in wound by culture [id number] NRG QUANTITY OF GROWTH Many NRG SUSCEPTIBILITY NO FURTHER TESTING NRG Capillary blood glucose measurement by g lucometer (mass/volume) - 07/31/19 15:42 Capillary blood glucose measurement by glucometer (mas s/volume) 62 mg/dL 70-110 Capillary blood glucose measurement by g lucometer (mass/volume) - 07/31/19 15:43 Capillary blood glucose measurement by glucometer (mas s/volume) 214 mg/dL 70-110 PROCALCITONIN (PCT) - 07/31/19 15:46 PROCALCITONIN (PCT) 0.09 ng/mL <0.10 Serum or plasma creatinine measurement ( mass/volume) - 07/31/19 15:46 Serum or plasma creatinine measurement (mass/volume) 1.01 mg/dL 0.60-1.30 Erythrocyte sedimentation rate by tri gren method - 07/31/19 15:46 Erythrocyte sedimentation rate by westergren method 52 mm 0- 30 Serum or plasma C reactive protein measu rement (mass/volume) - 07/31/19 15:46 Serum or plasma C reactive protein measurement (mass/v olume) 2.49 mg/dL 0.00-0.50 Bacterial blood culture - 07/31/19 15:46 Bacterial blood culture NG NRG Bacterial blood culture - 07/31/19 15:54 Bacterial blood culture NG NRG Capillary blood glucose measurement by g lucometer (mass/volume) - 07/31/19 20:19 Capillary blood glucose measurement by glucometer (mas s/volume) 229 mg/dL 70-110 Capillary blood glucose measurement by g lucometer (mass/volume) - 08/01/19 05:16 Capillary blood glucose measurement by glucometer (mas s/volume) 172 mg/dL 70-110 Complete blood count (CBC) with automate d white blood cell (WBC) differential - 08/01/19 05:45 Blood leukocytes automated count (number/volume) 9.4 10*3/uL 4.3-11.0 Blood erythrocytes automated count (number/volume) 4.33 10*6/uL 4.35-5.85 Venous blood hemoglobin measurement (mass/volume) 12.6 g/dL 11.5-16.0 Blood hematocrit (volume fraction) 38 % 35-52 Automated erythrocyte mean corpuscular volume 88 [ foz_us] 80-99 Automated erythrocyte mean corpuscular h emoglobin (mass per erythrocyte) 29 pg 25-34 Automated erythrocyte mean corpuscular h emoglobin concentration measurement (mass/volume) 33 g/dL 32-36 Automated erythrocyte distribution width ratio 12. 7 % 10.0- 14.5 Automated blood platelet count (count/volume) 398 10*3/uL 130-400 Automated blood platelet mean volume measurement 8.8 [foz_us] 7.4-10.4 Automated blood neutrophils/100 leukocytes 68 % 42-75 Automated blood lymphocytes/100 leukocytes 17 % 12-44 Blood monocytes/100 leukocytes 14 % 0-12 Automated blood eosinophils/100 leukocytes 2 % 0-10 Automated blood basophils/100 leukocytes 0 % 0-10 Blood neutrophils automated count (number/volume) 6.4 10*3 1.8-7.8 Blood lymphocytes automated count (number/volume) 1.6 10*3 1.0-4.0 Blood monocytes automated count (number/volume) 1. 3 10*3 0.0-1.0 Automated eosinophil count 0.1 10*3/uL 0 .0-0.3 Automated blood basophil count (count/volume) 0.0 10*3/uL 0.0-0.1 Comprehensive metabolic panel - 08/01/19 05:45 Serum or plasma sodium measurement (moles/volume) 135 mmol/L 135-145 Serum or plasma potassium measurement (moles/volume) 4.7 mmol/L 3.6-5.0 Serum or plasma chloride measurement (moles/volume) 106 mmol/L 98-107 Carbon dioxide 19 mmol/L 21-32 Serum or plasma anion gap determination (moles/volume) 10 mmol/L 5-14 Serum or plasma urea nitrogen measurement (mass/volume ) 16 mg/dL 7-18 Serum or plasma creatinine measurement (mass/volume) 0.91 mg/dL 0.60-1.30 Serum or plasma urea nitrogen/creatinine mass ratio 18 NRG Serum or plasma creatinine measurement w ith calculation of estimated glomerular filtration rate > NRG Serum or plasma glucose measurement (mass/volume) 185 mg/dL 70-105 Serum or plasma calcium measurement (mass/volume) 8.6 mg/dL 8.5-10.1 Serum or plasma total bilirubin measurement (mass/volu me) 0.3 mg/dL 0.1-1.0 Serum or plasma alkaline phosphatase namrata surement (enzymatic activity/volume) 83 U/L 40-136 Serum or plasma aspartate aminotransfera se measurement (enzymatic activity/volume) 12 U/L 5-34 Serum or plasma alanine aminotransferase measurement (enzymatic activity/volume) 8 U/L 0-55 Serum or plasma protein measurement (mass/volume) 6.6 g/dL 6.4-8.2 Serum or plasma albumin measurement (mass/volume) 3.0 g/dL 3.2-4.5 CALCIUM CORRECTED 9.4 mg/dL 8.5-10.1 Capillary blood glucose measurement by g lucometer (mass/volume) - 08/01/19 11:04 Capillary blood glucose measurement by glucometer (mas s/volume) 280 mg/dL 70-110 Methicillin resistant Staphylococcus aur eus (MRSA) screening culture - 08/01/19 13:44 Methicillin resistant Staphylococcus aureus (MRSA) scr eening culture NEG NRG Capillary blood glucose measurement by g lucometer (mass/volume) - 08/01/19 16:07 Capillary blood glucose measurement by glucometer (mas s/volume) 92 mg/dL 70-110 Capillary blood glucose measurement by g lucometer (mass/volume) - 08/01/19 20:49 Capillary blood glucose measurement by glucometer (mas s/volume) 265 mg/dL 70-110 Capillary blood glucose measurement by g lucometer (mass/volume) - 08/01/19 20:51 Capillary blood glucose measurement by glucometer (mas s/volume) 283 mg/dL 70-110 Complete blood count (CBC) with automate d white blood cell (WBC) differential - 08/02/19 03:07 Blood leukocytes automated count (number/volume) 7.5 10*3/uL 4.3-11.0 Blood erythrocytes automated count (number/volume) 4.28 10*6/uL 4.35-5.85 Venous blood hemoglobin measurement (mass/volume) 12.5 g/dL 11.5-16.0 Blood hematocrit (volume fraction) 38 % 35-52 Automated erythrocyte mean corpuscular volume 88 [ foz_us] 80-99 Automated erythrocyte mean corpuscular h emoglobin (mass per erythrocyte) 29 pg 25-34 Automated erythrocyte mean corpuscular h emoglobin concentration measurement (mass/volume) 33 g/dL 32-36 Automated erythrocyte distribution width ratio 12. 6 % 10.0- 14.5 Automated blood platelet count (count/volume) 409 10*3/uL 130-400 Automated blood platelet mean volume measurement 8.8 [foz_us] 7.4-10.4 Automated blood neutrophils/100 leukocytes 49 % 42-75 Automated blood lymphocytes/100 leukocytes 33 % 12-44 Blood monocytes/100 leukocytes 14 % 0-12 Automated blood eosinophils/100 leukocytes 4 % 0-10 Automated blood basophils/100 leukocytes 1 % 0-10 Blood neutrophils automated count (number/volume) 3.7 10*3 1.8-7.8 Blood lymphocytes automated count (number/volume) 2.5 10*3 1.0-4.0 Blood monocytes automated count (number/volume) 1. 1 10*3 0.0-1.0 Automated eosinophil count 0.3 10*3/uL 0 .0-0.3 Automated blood basophil count (count/volume) 0.0 10*3/uL 0.0-0.1 Comprehensive metabolic panel - 08/02/19 03:07 Serum or plasma sodium measurement (moles/volume) 139 mmol/L 135-145 Serum or plasma potassium measurement (moles/volume) 4.2 mmol/L 3.6-5.0 Serum or plasma chloride measurement (moles/volume) 108 mmol/L 98-107 Carbon dioxide 22 mmol/L 21-32 Serum or plasma anion gap determination (moles/volume) 9 mmol/L 5-14 Serum or plasma urea nitrogen measurement (mass/volume ) 17 mg/dL 7-18 Serum or plasma creatinine measurement (mass/volume) 0.84 mg/dL 0.60-1.30 Serum or plasma urea nitrogen/creatinine mass ratio 20 NRG Serum or plasma creatinine measurement w ith calculation of estimated glomerular filtration rate > NRG Serum or plasma glucose measurement (mass/volume) 148 mg/dL 70-105 Serum or plasma calcium measurement (mass/volume) 8.5 mg/dL 8.5-10.1 Serum or plasma total bilirubin measurement (mass/volu me) 0.2 mg/dL 0.1-1.0 Serum or plasma alkaline phosphatase namrata surement (enzymatic activity/volume) 98 U/L 40-136 Serum or plasma aspartate aminotransfera se measurement (enzymatic activity/volume) 13 U/L 5-34 Serum or plasma alanine aminotransferase measurement (enzymatic activity/volume) 10 U/L 0-55 Serum or plasma protein measurement (mass/volume) 6.3 g/dL 6.4-8.2 Serum or plasma albumin measurement (mass/volume) 2.9 g/dL 3.2-4.5 CALCIUM CORRECTED 9.4 mg/dL 8.5-10.1 Vancomycin trough - 08/02/19 03:07 Vancomycin trough 14.3 ug/mL 10.0-20.0 Methicillin resistant Staphylococcus aur eus (MRSA) screening culture - 08/02/19 04:30 Methicillin resistant Staphylococcus aureus (MRSA) scr eening culture NEG NRG Capillary blood glucose measurement by g lucometer (mass/volume) - 08/02/19 05:46 Capillary blood glucose measurement by glucometer (mas s/volume) 169 mg/dL 70-110 Coronavirus SARS-CoV-2 SO 2018 - 0 07:51 Coronavirus Ab [Units/volume] in Serum Negative Negative Capillary blood glucose measurement by g lucometer (mass/volume) - 08/02/19 11:58 Capillary blood glucose measurement by glucometer (mas s/volume) 240 mg/dL 70-110 Capillary blood glucose measurement by g lucometer (mass/volume) - 08/02/19 15:33 Capillary blood glucose measurement by glucometer (mas s/volume) 101 mg/dL 70-110 Capillary blood glucose measurement by g lucometer (mass/volume) - 08/02/19 20:47 Capillary blood glucose measurement by glucometer (mas s/volume) 166 mg/dL 70-110 Complete blood count (CBC) with automate d white blood cell (WBC) differential - 08/03/19 05:15 Blood leukocytes automated count (number/volume) 10.6 10*3/uL 4.3-11.0 Blood erythrocytes automated count (number/volume) 4.20 10*6/uL 4.35-5.85 Venous blood hemoglobin measurement (mass/volume) 12.3 g/dL 11.5-16.0 Blood hematocrit (volume fraction) 37 % 35-52 Automated erythrocyte mean corpuscular volume 88 [ foz_us] 80-99 Automated erythrocyte mean corpuscular h emoglobin (mass per erythrocyte) 29 pg 25-34 Automated erythrocyte mean corpuscular h emoglobin concentration measurement (mass/volume) 33 g/dL 32-36 Automated erythrocyte distribution width ratio 12. 6 % 10.0- 14.5 Automated blood platelet count (count/volume) 376 10*3/uL 130-400 Automated blood platelet mean volume measurement 8.9 [foz_us] 7.4-10.4 Automated blood neutrophils/100 leukocytes 60 % 42-75 Automated blood lymphocytes/100 leukocytes 24 % 12-44 Blood monocytes/100 leukocytes 14 % 0-12 Automated blood eosinophils/100 leukocytes 2 % 0-10 Automated blood basophils/100 leukocytes 0 % 0-10 Blood neutrophils automated count (number/volume) 6.4 10*3 1.8-7.8 Blood lymphocytes automated count (number/volume) 2.5 10*3 1.0-4.0 Blood monocytes automated count (number/volume) 1. 5 10*3 0.0-1.0 Automated eosinophil count 0.3 10*3/uL 0 .0-0.3 Automated blood basophil count (count/volume) 0.0 10*3/uL 0.0-0.1 Comprehensive metabolic panel - 08/03/19 05:15 Serum or plasma sodium measurement (moles/volume) 137 mmol/L 135-145 Serum or plasma potassium measurement (moles/volume) 4.2 mmol/L 3.6-5.0 Serum or plasma chloride measurement (moles/volume) 107 mmol/L 98-107 Carbon dioxide 23 mmol/L 21-32 Serum or plasma anion gap determination (moles/volume) 7 mmol/L 5-14 Serum or plasma urea nitrogen measurement (mass/volume ) 16 mg/dL 7-18 Serum or plasma creatinine measurement (mass/volume) 0.81 mg/dL 0.60-1.30 Serum or plasma urea nitrogen/creatinine mass ratio 20 NRG Serum or plasma creatinine measurement w ith calculation of estimated glomerular filtration rate > NRG Serum or plasma glucose measurement (mass/volume) 155 mg/dL 70-105 Serum or plasma calcium measurement (mass/volume) 8.1 mg/dL 8.5-10.1 Serum or plasma total bilirubin measurement (mass/volu me) 0.2 mg/dL 0.1-1.0 Serum or plasma alkaline phosphatase namrata surement (enzymatic activity/volume) 103 U/L 40-136 Serum or plasma aspartate aminotransfera se measurement (enzymatic activity/volume) 26 U/L 5-34 Serum or plasma alanine aminotransferase measurement (enzymatic activity/volume) 19 U/L 0-55 Serum or plasma protein measurement (mass/volume) 5.9 g/dL 6.4-8.2 Serum or plasma albumin measurement (mass/volume) 2.7 g/dL 3.2-4.5 CALCIUM CORRECTED 9.1 mg/dL 8.5-10.1 Capillary blood glucose measurement by g lucometer (mass/volume) - 08/03/19 05:22 Capillary blood glucose measurement by glucometer (mas s/volume) 177 mg/dL 70-110 Capillary blood glucose measurement by g lucometer (mass/volume) - 08/03/19 11:04 Capillary blood glucose measurement by glucometer (mas s/volume) 151 mg/dL 70-110 Encounters ACCT No. Visit Date/Time Discharge Status Pt. Type Provider Facility Loc./Unit Complaint [id number] 03/21/2017 11:28:00 03/21/2017 12:56: 00 DIS Outpatient CLEVELAND GERMAN [place] [facility] ER [id number] 12/29/2016 17:45:00 12/29/2016 19:21: 00 DIS Outpatient Puneet [facility] ER [id number] 12/11/2016 09:46:00 12/11/2016 23:59: 00 DIS Outpatient ESTHER, ROSE [id number] 11/06/2016 07:52:00 11/06/2016 23:59: 00 DIS Outpatient Melva Dietrich [id number] 12/02/2015 16:15:00 12/02/2015 23:59: 00 DIS Outpatient ROSE SANTANA [id number] 03/29/2018 15:08:00 Document Registration [id number] 12/29/2016 18:08:51 Document Registration [id number] 11/05/2016 10:40:00 Document Registration [id number] 07/22/2019 11:40:00 07/22/2019 23:59: 59 CLS Outpatient GARRY CAMARGO [facility] [id number] 07/22/2019 11:40:00 Document Registration [id number] 07/31/2019 13:35:00 16:23:00 DIS Outpatient CASTILLO DO, MIYA [address] [id number] 07/31/2019 12:40:00 23:59:59 CLS Outpatient OSIEL HOLLINS MD [facility] [id number] 07/25/2019 12:43:00 23:59:59 CLS Outpatient OSIEL HOLLINS MD [facility] RAD [id number] 07/25/2019 10:09:00 23:59:59 CLS Outpatient OSIEL HOLLINS MD [facility] WOUNDCARE [id number] 07/17/2019 08:53:00 23:59:59 CLS Outpatient CASTILLO DO, MIYA [facility] LAB Z00.00 [id number] 02/09/2019 14:59:00 12:31:00 DIS Outpatient CASTILLO DO, MIYA [facility] REHAB CVA [id number] 12/27/2018 09:05:00 00:01:00 DIS Outpatient CASTILLO DO, MIYA [facility] REHAB CVA [id number] 11/30/2018 08:45:00 23:59:59 CLS Outpatient OSIEL HOLLINS MD [facility] WOUNDCARE [id number] 11/30/2018 08:09:00 23:59:59 CLS Outpatient MIYA CASTILLO DO [facility] LAB TYPE 2 DIABETES [id number] 11/16/2018 08:51:00 23:59:59 CLS Outpatient OSIEL HOLLINS MD [facility] WOUNDCARE [id number] 11/09/2018 14:10:00 23:59:59 CLS Outpatient OSIEL HOLLINS MD [facility] LAB ROUTINE LAB [id number] 11/09/2018 12:22:00 23:59:59 CLS Outpatient OSIEL HOLLINS MD [facility] WOUNDCARE [id number] 09/07/2018 12:00:00 11:30:00 DIS Inpatient MIYA CASTILLO DO [facility] IRF CVA [id number] 09/08/2018 12:10:00 23:59:59 CLS Outpatient Keyon GARRISON MD [facility] AFIB [id number] 09/04/2018 15:44:00 12:00:00 DIS Outpatient ANGELIKA CHRISTIANSON MD [facility] 4TH TIA, HYPERGLYCEMIA [id number] 01/08/2014 12:10:00 23:59:59 CLS Outpatient BERRY HUNT [facility] RAD RT GROIN PAIN,S WELLING [id number] 01/02/2014 12:36:00 19:40:00 DIS Outpatient EVONNE SANDOVAL FACC, PAULINE FACP CC DS [facility] CP,CAD,DM [id number] 09/17/2013 13:45:00 15:17:00 DIS Outpatient Keyon GARRISON MD [facility] [id number] 03/13/2019 09:21:00 Document Registration
== END 2019-08-24 22:42 | disposition home or self-care (01) ==
LOC: EDUNIT# 21:42 → ER 21:43
DX: T87.81 Dehiscence of amputation stump (principal); I10 Essential (primary) hypertension; I25.10 Atherosclerotic heart disease of native coronary artery without angina pectoris; E11.40 Type 2 diabetes mellitus with diabetic neuropathy, unspecified; F41.9 Anxiety disorder, unspecified; F32.9 Major depressive disorder, single episode, unspecified; Z79.82 Long term (current) use of aspirin; Z79.02 Long term (current) use of antithrombotics/antiplatelets; Z88.1 Allergy status to other antibiotic agents; Z79.4 Long term (current) use of insulin; Z77.22 Contact with and (suspected) exposure to environmental tobacco smoke (acute) (chronic); Z95.5 Presence of coronary angioplasty implant and graft; Z86.73 Personal history of transient ischemic attack (TIA), and cerebral infarction without residual deficits; Z82.49 Family history of ischemic heart disease and other diseases of the circulatory system
CPT/HCPCS: 99283

== ENCOUNTER 2019-11-14 09:47 | Day surgery (SDC) | payer OTHER ==
[~2019-11-14] VITALS: Ht 172.7 cm; Wt 88.6 kg
[~2019-11-14 09:47] MED LIST changes: +ACHD5005 PO; +ASPI-1238 PO; -ASPI-983 PO; +DOXY100T2 PO; -HYDR-83 PO; +LACTATED RINGERS 1,000 ML IV ONE; +PANT40TA2 PO
[2019-11-14] MEDS ORDERED: LACTATED RINGERS 1,000 ML IV STA (09:52)
[2019-11-14 09:53] VITALS: BP 158/84
[2019-11-14] MEDS ORDERED: METF-397 PO (11:07)
[2019-11-14] MEDS ORDERED: proPOfol 200 MG/20 ML (DIPRIVAN) VIAL IV ONE ×2 (11:08→11:47)
[2019-11-14] MEDS ORDERED: MIDAZOLAM 2 MG/2 ML (VERSED) VIAL ONE (11:08)
--- NOTE | 2019-11-14 11:38 | Progress Note-Pre Operative ---
Pre-Operative Progress Note H&P Reviewed The H&P was reviewed, patient examined and no changes noted. Date Seen by Provider: Nov 14, 2019 Time Seen by Provider: 11:37 Date H&P Reviewed: Nov 14, 2019 Time H&P Reviewed: 11:37 Pre-Operative Diagnosis: hx colitis TY SMITH DO Nov 14, 2019 11:38
[2019-11-14 12:15] VITALS: BP 131/61
[2019-11-14 12:20] VITALS: BP 132/64
--- NOTE | 2019-11-14 12:21 | Progress Note-Post Operative ---
Post-Operative Progess Note Surgeon (s)/Tape Stringer (s) Surgeon TY SMITH DO Tape Stringer: n/a Pre-Operative Diagnosis hx colitis Post-Operative Diagnosis Diverticulosis Colitis Stricture of splenic flexure Polyps Procedure & Operative Findings Date of Procedure 11/14/19 Procedure Performed/Findings Incomplete colonoscopy due to stricture Cold florian inking of splenic flexure stricture Hot biopsy polypectomy x2 Anesthesia Type per mda Estimated Blood Loss Estimated blood loss (mL): scant Specimens/Packing Specimens Removed Splenic flexure biopsy x4 Rectal polyps x2 TY SMITH DO Nov 14, 2019 12:21
--- NOTE | 2019-11-14 12:23 | Discharge Inst-Simple/Standard ---
Discharge Inst-Standard Patient Instructions/Follow Up Plan of Care/Instructions/FU: 2 weeks Cinda Activity as Tolerated: Yes Discharge Diet: Regular Diet TY SMITH DO Nov 14, 2019 12:23
[2019-11-14 12:25] VITALS: BP_SYST 136; BP_SYST 143; BP_DIAS 72; BP_DIAS 81
[2019-11-14 12:55] VITALS: BP 153/80
[2019-11-14 13:03] VITALS: BP 153/80
--- NOTE | 2019-11-14 13:18 | Anesthesia-General Post-Op ---
MAC Patient Condition Mental Status/LOC: Same as Preop Cardiovascular: Satisfactory Nausea/Vomiting: Absent Respiratory: Satisfactory Pain: Controlled Complications: Absent Post Op Complications Complications None Follow Up Care/Instructions Patient Instructions None needed. Anesthesiology Discharge Order Discharge Order Patient was seen after the procedure and she was doing well, no complaints, stable vital signs, no apparent adverse anesthesia problems. OSWALDO CADE DO Nov 14, 2019 13:18
--- NOTE | 2019-11-14 14:40 | OPERATIVE REPORT ---
DATE OF SERVICE: 11/14/2019 PREOPERATIVE DIAGNOSIS: History of colitis. POSTOPERATIVE DIAGNOSES: Stricture splenic flexure, colitis, diverticulosis, polyps. PROCEDURE: Incomplete colonoscopy due to a stricture, cold biopsies of stricture with Jeanine inking of the splenic flexure stricture just distal. Hot biopsy polypectomy x2 of the rectum. SURGEON: Ty Loo DO ANESTHESIA: Per MDA. ESTIMATED BLOOD LOSS: Scant. COMPLICATIONS: None. INDICATIONS: The patient is a 59-year-old female with history of colitis. She understands risks and benefits of procedure and wished to proceed with procedure. Consent was signed in the chart. DESCRIPTION OF PROCEDURE: The patient was taken to the endoscopy suite, placed in left lateral recumbent position. Timeout was performed. Digital rectal exam was performed. There were no palpable polyps, masses or ulcerations. Scope was inserted in the rectum, advanced all the way up to the splenic flexure where a stricture was encountered. The scope was to be passed through this area. Multiple cold biopsies were obtained and just distal to this area, Jeanine inking tattoo was performed. There does appear to have some inflammation around this area as well consistent with colitis. Scope was then slowly retracted back. There were no polyps, masses or ulcerations within the remainder of the descending and sigmoid colon. A little bit of diverticulosis is present. In the rectum, two small polyps were present, which hot biopsy polypectomy was performed. Scope was retroflexed noting no other pathology. Scope was returned to its normal position, slowly withdrawn until completely removed. The patient tolerated procedure well without any complications, taken to recovery room in stable condition. RECOMMENDATIONS: The patient will need to follow up on biopsy results. We will consider reexamination versus partial colectomy. Further recommendations pending pathology results and the patient's symptoms. Job ID: [id number] DocumentID: [id number] Dictated Date: 11/14/2019 12:29:39 Photogeologist Date: 11/14/2019 14:39:44 Dictated By: TY LOO DO
== END 2019-11-14 13:15 | disposition home or self-care (01) ==
LOC: ENDO 09:47
PROVIDERS: ATTEND Surgery
DX: K63.5 Polyp of colon (principal); K57.30 Diverticulosis of large intestine without perforation or abscess without bleeding; I10 Essential (primary) hypertension; I25.10 Atherosclerotic heart disease of native coronary artery without angina pectoris; F41.9 Anxiety disorder, unspecified; F32.9 Major depressive disorder, single episode, unspecified; K56.699 Other intestinal obstruction unspecified as to partial versus complete obstruction; K21.9 Gastro-esophageal reflux disease without esophagitis; E11.9 Type 2 diabetes mellitus without complications; E78.5 Hyperlipidemia, unspecified; E66.9 Obesity, unspecified; Z68.29 Body mass index [BMI] 29.0-29.9, adult; Z79.82 Long term (current) use of aspirin; Z79.899 Other long term (current) drug therapy; Z95.5 Presence of coronary angioplasty implant and graft; Z88.1 Allergy status to other antibiotic agents; Z87.891 Personal history of nicotine dependence; Z86.73 Personal history of transient ischemic attack (TIA), and cerebral infarction without residual deficits
CPT/HCPCS: 82962

== ENCOUNTER 2020-04-05 05:42 | Outpatient (RCR) | payer OTHER ==
[~2020-04-05] VITALS: Ht 172.7 cm; Wt 98.0 kg
[~2020-04-05 05:42] MED LIST changes: -LACTATED RINGERS 1,000 ML IV ONE; +LISI-729 PO
== END 2020-04-08 09:56 | disposition home or self-care (01) ==
LOC: PREOP 05:42
PROVIDERS: ATTEND Surgery
DX: Z01.812 Encounter for preprocedural laboratory examination (principal); K56.699 Other intestinal obstruction unspecified as to partial versus complete obstruction; Z20.822 Contact with and (suspected) exposure to COVID-19
CPT/HCPCS: 87635

== ENCOUNTER 2020-04-09 08:19 | Day surgery (SDC) | payer OTHER ==
[~2020-04-09] VITALS: Ht 172.7 cm; Wt 98.0 kg
[2020-04-09] MEDS ORDERED: LACTATED RINGERS 1,000 ML IV STA (08:24)
[2020-04-09] MEDS ORDERED: LACTATED RINGERS 1,000 ML IV ONE (08:25)
[2020-04-09 08:35] VITALS: BP 170/73
[2020-04-09] MEDS ORDERED: PROPOFOL INJECTION 50 ML IV ONE ×2 (09:01→10:18)
[2020-04-09] MEDS ORDERED: MIDAZOLAM 2 MG/2 ML (VERSED) VIAL ONE (09:02)
[2020-04-09] MEDS ORDERED: inSUlin (REGULAR) HUMAN 1 UNIT/0.01 ML (CHARGE PER UNIT) ONE (09:10)
[2020-04-09] MEDS ORDERED: inSUlin (REGULAR) HUMAN 1 UNIT/0.01 ML (CHARGE PER UNIT) SC ONE (09:15)
[2020-04-09] MEDS ORDERED: inSUlin (REGULAR) HUMAN 1 UNIT/0.01 ML (CHARGE PER UNIT) IV SCH (09:30)
[2020-04-09 10:49] VITALS: BP 110/52
--- NOTE | 2020-04-09 10:51 | Progress Note-Post Operative ---
Post-Operative Progess Note Surgeon (s)/Area Attendant (s) Surgeon TY SMITH DO Area Attendant: na Pre-Operative Diagnosis hx colitis, colonic stricture Post-Operative Diagnosis incomplete colonoscopy Procedure & Operative Findings Date of Procedure 04/09/20 Procedure Performed/Findings flex sig Anesthesia Type per drafter civil (cad) Estimated Blood Loss Estimated blood loss (mL): none Specimens/Packing Specimens Removed na TY SMITH DO Apr 09, 2020 10:51
--- NOTE | 2020-04-09 10:53 | Discharge Inst-Simple/Standard ---
Discharge Inst-Standard Patient Instructions/Follow Up Plan of Care/Instructions/FU: Cinda 2 weeks. Clear liquids today and obtain ct scan abd/pelvis tomorrow with rectal contrast. Activity as Tolerated: Yes Discharge Diet: Liquid Diet (clear liquids) TY SMITH DO Apr 09, 2020 10:53
[2020-04-09 10:54] VITALS: BP 115/54
--- NOTE | 2020-04-09 10:56 | Anesthesia-General Post-Op ---
MAC Patient Condition Mental Status/LOC: Same as Preop Cardiovascular: Satisfactory Nausea/Vomiting: Absent Respiratory: Satisfactory Pain: Controlled Complications: Absent Post Op Complications Complications None Follow Up Care/Instructions Patient Instructions None needed. Anesthesiology Discharge Order Discharge Order Patient is doing well, no complaints, stable vital signs, no apparent adverse anesthesia problems. No complications reported per nursing. NERIS DAS CRNA Apr 09, 2020 10:56
[2020-04-09 10:59] VITALS: BP 122/71
[2020-04-09 11:30] VITALS: BP 122/71
[2020-04-09 11:31] VITALS: BP 130/68
--- NOTE | 2020-04-10 09:57 | OPERATIVE REPORT ---
DATE OF SERVICE: 04/09/2020 PREOPERATIVE DIAGNOSES: History of colitis, colonic stricture. POSTOPERATIVE DIAGNOSIS: Incomplete colonoscopy. PROCEDURE: Flexible sigmoidoscopy. SURGEON: Ty Loo DO ANESTHESIA: Per SENIOR INTERACTIVE PRODUCER. ESTIMATED BLOOD LOSS: None. COMPLICATIONS: None. INDICATIONS: The patient is a 60-year-old female with recent history of colitis and noted colonic stricture. The patient wanted to attempt a repeat colonoscopy for further evaluation. The patient understands risks and benefits and wished to proceed. Consent was signed in the chart. DESCRIPTION OF PROCEDURE: The patient was taken to the endoscopy suite, placed in left lateral recumbent position. Timeout was performed. Digital rectal exam was performed. Scope was inserted in the rectum. There were no palpable polyps, masses or ulcerations. Scope was inserted in the rectum and then began to be advanced. Through the rectum into the sigmoid colon noting a small amount of diverticulosis. The scope was then continued to be advanced, but the scope was unable to be further advanced through the sigmoid colon completely. The patient was repositioned multiple times, unable to do so. Therefore, the scope was retracted back noting no other pathology. A gastroscope was then inserted in the rectum and began to be advanced through the rectum into the sigmoid colon. The patient again was repositioned multiple times with the scope, was not able to get completely through the sigmoid colon to evaluate the strictured area. At this point, again the patient was repositioned multiple times without any further success. Scope was then slowly retracted back to completely remove, noting no other pathology. The patient tolerated procedure well without any complications. RECOMMENDATIONS: The patient will stay on clear liquid diet today. We will plan on doing a CT scan with rectal contrast tomorrow to further evaluate the colonic stricture and also the rest of the colon. Further recommendations pending these results. Job ID: [id number] DocumentID: [id number] Dictated Date: 04/09/2020 11:25:22 Still Operator Brandy Date: 04/09/2020 14:58:59 Dictated By: TY LOO DO
== END 2020-04-09 11:33 | disposition home or self-care (01) ==
LOC: ENDO 08:19
PROVIDERS: ATTEND Surgery
DX: K57.30 Diverticulosis of large intestine without perforation or abscess without bleeding (principal); K56.699 Other intestinal obstruction unspecified as to partial versus complete obstruction; I10 Essential (primary) hypertension; I25.10 Atherosclerotic heart disease of native coronary artery without angina pectoris; F41.9 Anxiety disorder, unspecified; F32.9 Major depressive disorder, single episode, unspecified; E11.40 Type 2 diabetes mellitus with diabetic neuropathy, unspecified; K21.9 Gastro-esophageal reflux disease without esophagitis; E66.9 Obesity, unspecified; Z68.32 Body mass index [BMI] 32.0-32.9, adult; Z79.899 Other long term (current) drug therapy; Z88.1 Allergy status to other antibiotic agents; Z86.73 Personal history of transient ischemic attack (TIA), and cerebral infarction without residual deficits; Z87.19 Personal history of other diseases of the digestive system; Z95.5 Presence of coronary angioplasty implant and graft
CPT/HCPCS: 82962

== ENCOUNTER → 2020-04-10 | Outpatient (CLI) | payer OTHER ==
[~2020-04-10] MED LIST changes: +DIATRIZOATE MEGLUM/SODIUM 37% 120 ML (GASTROGRAFIN) PO ONE
--- NOTE | 2020-04-10 08:48 | Diagnostic Imaging Report ---
PROCEDURE: CT abdomen and pelvis without contrast. TECHNIQUE: Multiple contiguous axial images were obtained through the abdomen and pelvis without the use of intravenous contrast. Auto Exposure Controls were utilized during the CT exam to meet ALARA standards for radiation dose reduction. Rectal contrast was administered with filling up to the cecum. INDICATION: Incomplete colonoscopy. Left lower quadrant pain. COMPARISON: None. FINDINGS: The heart is unremarkable. The lung bases are clear. Intraluminal contrast is visualized throughout the colon. No evidence of intraluminal mass or stricture. Scattered diverticuli are seen in the sigmoid colon without evidence of acute diverticulitis. No evidence of bowel obstruction. No free fluid or free air in the abdomen and pelvis. Fat-containing nodule is seen in the right adrenal gland measuring 2.4 cm. The left adrenal gland is unremarkable. The liver, spleen, pancreas, and kidneys have a normal noncontrast CT appearance. A exophytic cortical cyst is seen off the superior pole the left kidney measuring 1.4 cm. The gallbladder is surgically absent. There is no pathologically enlarged mesenteric or retroperitoneal adenopathy. No acute osseous abnormalities. Endplate degenerative changes are present at L2-L3. There is grade 1 anterolisthesis of L4 on L5. There is calcified aortic and iliac atherosclerotic plaque without aneurysm. The urinary bladder is nondistended. There is no free air, loculated collection, or adenopathy in the pelvis. IMPRESSION: 1. No evidence of intraluminal mass or focal stricture in the colon. No bowel obstruction, free fluid, or free air. 2. Scattered diverticuli in the sigmoid colon without evidence of acute diverticulitis. 3. Likely benign myelolipoma in the right adrenal gland. Dictated by: Dictated on workstation # [id number]
== END ==
LOC: RAD 08:15
PROVIDERS: ATTEND Surgery
DX: K57.30 Diverticulosis of large intestine without perforation or abscess without bleeding (principal)
CPT/HCPCS: 74176

== ENCOUNTER → 2020-05-08 | Outpatient (CLI) | payer OTHER ==
[~2020-05-08] MED LIST changes: -DIATRIZOATE MEGLUM/SODIUM 37% 120 ML (GASTROGRAFIN) PO ONE
== END ==
LOC: WOUNDCARE 08:13
PROVIDERS: ATTEND Surgery
DX: E11.621 Type 2 diabetes mellitus with foot ulcer (principal); E11.42 Type 2 diabetes mellitus with diabetic polyneuropathy; L97.522 Non-pressure chronic ulcer of other part of left foot with fat layer exposed; K50.019 Crohn's disease of small intestine with unspecified complications; E66.09 Other obesity due to excess calories; Z68.33 Body mass index [BMI] 33.0-33.9, adult
CPT/HCPCS: 11042; A6197; G0463

== ENCOUNTER → 2020-05-14 | Outpatient (CLI) | payer OTHER | LOC: WOUNDCARE 08:40 | PROVIDERS: ATTEND Surgery | DX: E11.621 Type 2 diabetes mellitus with foot ulcer (principal); E11.42 Type 2 diabetes mellitus with diabetic polyneuropathy; I96 Gangrene, not elsewhere classified; L97.522 Non-pressure chronic ulcer of other part of left foot with fat layer exposed; K50.019 Crohn's disease of small intestine with unspecified complications; E66.09 Other obesity due to excess calories; Z68.33 Body mass index [BMI] 33.0-33.9, adult | CPT/HCPCS: 11042; G0463 ==

== ENCOUNTER → 2020-05-21 | Outpatient (CLI) | payer OTHER | LOC: WOUNDCARE 08:05 | PROVIDERS: ATTEND Surgery | DX: E11.621 Type 2 diabetes mellitus with foot ulcer (principal); E11.42 Type 2 diabetes mellitus with diabetic polyneuropathy; L97.522 Non-pressure chronic ulcer of other part of left foot with fat layer exposed; K50.019 Crohn's disease of small intestine with unspecified complications; E66.09 Other obesity due to excess calories; I96 Gangrene, not elsewhere classified; Z68.33 Body mass index [BMI] 33.0-33.9, adult | CPT/HCPCS: 11042; G0463 ==

== ENCOUNTER → 2020-05-28 | Outpatient (CLI) | payer OTHER | LOC: WOUNDCARE 08:58 | PROVIDERS: ATTEND Surgery | DX: E11.621 Type 2 diabetes mellitus with foot ulcer (principal); E11.42 Type 2 diabetes mellitus with diabetic polyneuropathy; I96 Gangrene, not elsewhere classified; L97.522 Non-pressure chronic ulcer of other part of left foot with fat layer exposed; K50.019 Crohn's disease of small intestine with unspecified complications; E66.09 Other obesity due to excess calories; Z68.33 Body mass index [BMI] 33.0-33.9, adult | CPT/HCPCS: 11042; G0463 ==

== ENCOUNTER → 2020-06-03 | Outpatient (CLI) | payer OTHER | LOC: WOUNDCARE 09:20 | PROVIDERS: ATTEND Surgery | DX: L97.521 Non-pressure chronic ulcer of other part of left foot limited to breakdown of skin (principal); E11.621 Type 2 diabetes mellitus with foot ulcer; E11.42 Type 2 diabetes mellitus with diabetic polyneuropathy; L97.522 Non-pressure chronic ulcer of other part of left foot with fat layer exposed; K50.00 Crohn's disease of small intestine without complications; E66.01 Morbid (severe) obesity due to excess calories; E11.52 Type 2 diabetes mellitus with diabetic peripheral angiopathy with gangrene | CPT/HCPCS: 99213 ==

== ENCOUNTER 2020-06-05 20:17 | Emergency (ER) | payer OTHER ==
[~2020-06-05] VITALS: Ht 172.7 cm; Wt 95.3 kg
--- NOTE | 2020-06-05 21:08 | ED Head Injury ---
General Chief Complaint: Head/Cervical Problems Stated Complaint: FALL - HEAD PAIN Source: patient History of Present Illness Date Seen by Provider: Jun 05, 2020 Time Seen by Provider: 20:22 Initial Comments PT ARRIVES VIA POV FROM HOME STATES AT 1830 TONIGHT, SHE WAS SITTING IN A CHAIR ON HER PATIO, AND STARTED TO GET UP AND THE CHAIR TIPPED OVER, AND SHE FELL, HITTING HER RIGHT BROW ON CONCRETE NO LOSS OF CONSCIOUSNESS C/O HEADACHE TO RIGHT FRONTAL/TEMPORAL AREA HAD SLIGHT "FUZZY" VISION IN RIGHT EYE HAD SLIGHT NAUSEA, NOT NOW HAD SLIGHT DIZZINESS, NOT NOW NO NECK OR BACK PAIN NO PARESTHESIAS OR MOTOR DEFICITS NO NAUSEA/VOMITING NO CHEST OR ABDOMINAL INJURY OR PAIN STATES SHE BUMPED/SCRAPED HER RIGHT KNEE, BUT IT DOES NOT HURT, AND PT AMBULATED IN ON HER OWN WITH HER CANE PT IS ON PLAVIX AND ASPIRIN AND HAS HAD A PRIOR STROKE, WITH RESIDUAL LEFT SIDE WEAKNESS PT CURRENTLY WEARING A POST OP SHOE ON LEFT FOOT--IS BEING TREATED FOR DIABETIC FOOT ULCER BY DR. HOLLINS. Allergies and Home Medications Allergies Coded Allergies: cefdinir (Verified Adverse Reaction, Mild, NAUSEA, yeast infection, 11/08/19) Cephalosporins (Verified Adverse Reaction, Unknown, yeast infections, 11/08/19) Home Medications Aspirin 81 Mg Tablet.dr, 81 MG PO DAILY, (Reported) Atorvastatin Calcium 40 Mg Tablet, 20 MG PO HS, (Reported) TAKES OF A 40MG TAB LAST FILLED 04-17-2019 #30/60 DAY SUPPLY Bupropion HCl 300 Mg Tab.er.24h, 300 MG PO DAILY, (Reported) Clopidogrel Bisulfate 75 Mg Tablet, 75 MG PO DAILY, (Reported) Diphenhydramine HCl 25 Mg Capsule, 25 MG PO HS PRN for SLEEP, (Reported) Insulin Aspart 300 Units/3 Ml Solution, 15 UNITS SQ AC, (Reported) LAST FILLED 05-09-2019 #5 PENS/33 DAY SUPPLY Insulin Detemir 100 Unit/1 Ml Insuln.pen, 25 UNIT SQ HS, (Reported) LAST FILLED 05-09-2019 #5 PENS/75 DAY SUPPLY Lisinopril 5 Mg Tablet, 5 MG PO DAILY, (Reported) Metformin HCl 500 Mg Tablet, 500 MG PO BID, (Reported) Metoprolol Succinate 25 Mg Tab.er.24h, 25 MG PO DAILY, (Reported) Multivitamin 1 Each Tablet, 1 TAB PO DAILY, (Reported) Pantoprazole Sodium 40 Mg Tablet.dr, 40 MG PO DAILY, (Reported) Pregabalin 100 Mg Capsule, 100 MG PO BID, (Reported) Patient Home Medication List Home Medication List Reviewed: Yes Review of Systems Review of Systems Constitutional: see HPI, dizziness Eyes: See HPI Ears, Nose, Mouth, Throat: no symptoms reported; denies ear pain, denies nose pain, denies epistaxis, denies mouth pain, denies loose teeth Respiratory: no symptoms reported; No short of breath Cardiovascular: no symptoms reported; No chest pain Gastrointestinal: no symptoms reported; No abdominal pain, No nausea, No vomiting Genitourinary: no symptoms reported Musculoskeletal: No back pain, No neck pain Skin: no symptoms reported Psychiatric/Neurological: See HPI; Denies Cognitive Dysfunction; Headache; Denies Numbness, Denies Tingling, Denies Tonic Clonic Seizures, Denies Weakness Endocrine: No Symptoms Reported Hematologic/Lymphatic: See HPI Past Todfvvv-Uhytkt-Pytsmw Hx Past Med/Social Hx: Reviewed and Corrections made Patient Social History Alcohol Use: Occasionally Uses Alcohol Beverage of Choice: Beer Smoking Status: Current Everyday Smoker Type Used: Cigarettes 2nd Hand Smoke Exposure: Yes Recent Hopitalizations: Yes (JULY 2019-OSTEOMYELITIS) Immunizations Up To Date Tetanus Booster (TDap): Less than 5yrs PED Vaccines UTD: No Date of Pneumonia Vaccine: Jul 30, 2009 Date of Influenza Vaccine: Nov 22, 2019 Seasonal Allergies Seasonal Allergies: Yes Past Medical History Surgeries: Yes (KIDNEY/BLADDER SURG CHILD;LOOP RECORDER;L GREAT TOE AMPUTATION) Amputation, Appendectomy, Bladder Surgery, Cardiac, Section, Coronary Stent, Gallbladder, Renal Respiratory: No Currently Using CPAP: No Currently Using BIPAP: No Cardiac: Yes (STENT, LOOP RECORDER ) Coronary Artery Disease, Hypertension, Irregular Heartbeat Neurological: Yes (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 Sexually Transmitted Disease: No HIV/AIDS: No Genitourinary: Yes UTI-Chronic Gastrointestinal: Yes (COLONIC STRICTURE) Colitis, Gastroesophageal Reflux, Gall Bladder Disease Musculoskeletal: Yes ( RIGHT GREAT TOE AMPUTATION DUE TO OSTEOMYELITIS) Amputee Endocrine: Yes Diabetes, Insulin dep HEENT: No (READING GLASSES) Loss of Vision: Denies Hearing Impairment: Denies Cancer: No Psychosocial: Yes Anxiety, Depression Integumentary: Yes (DIABETIC FOOT ULCERS; OSTEOMYELITIS OF TOES) Blood Disorders: No Adverse Reaction/Blood Tranf: No Family Medical History Arthritis Cataracts Diabetes mellitus 19 MOTHER FH: lupus 19 MOTHER Hypercholesterolemia Hypertension No Family History of: AIDS Abdominal aortic aneurysm Gustavo's disease Alcoholism Alzheimer's disease Aphasia Asthma Cancer of mouth Cardiovascular disease Colon cancer Completed stroke Congenital disease Congenital heart disease Coronary thrombosis Cystic fibrosis Deafness or hearing loss Dementia Drug abuse Dysphasia Fibrocystic disease of breast Gastroenteritis Glaucoma Headache disorder Infertility Kidney disease Myocardial infarction Neoplasm Not obtainable due to adoption Osteoporosis Parkinson's disease Prostate cancer Psychosocial problem Respiratory disorder Seizure disorder Severe allergy Thyroid disease Tuberculosis Visual disorder Diabetes, Other Conditions/Hx ADDITIONAL PAST MEDICAL/SURGICAL HISTORY: -RIGHT GREAT TOE AMPUTATION 08/02/2019 DUE TO OSTEOMYELITIS-DONE BY DR. SMITH -PERIPHERAL ANGIOGRAM 08/03/[address] GARRISON:FINDINGS: No significant disease in the distal abdominal aorta. Nonselective angiogram of the renal arteries showed bilateral patent renal arteries. Patent bilateral common iliac artery, external iliac artery, common femoral artery. Mild proximal left SFA disease. Patent left popliteal artery and three-vessel runoff below the knee. Patent right SFA, popliteal artery and three-vessel runoff below the knee. CONCLUSION: Minimal PAD. Continue secondary prevention measures. -LOOP RECORDER -CARDIAC CATH WITH STENT TO FIRST DIAGONAL 2013 -KIDNEY AND BLADDER SURGERY CHILD -04/10/20--FLEXIBLE SIGMOIDOSCOPY BY DR. SMITH - -APPENDECTOMY -CHOLECYSTECTOMY Physical Exam Vital Signs Vital Signs - First Documented 06/05/20 20:20 Temp 35.8 Pulse 88 Resp 16 B/P (MAP) 136/76 (96) Pulse Ox 97 O2 Delivery Room Air Capillary Refill : Height, Weight, BMI Height: 5'8.00" Weight: 166lbs. 0.0oz. 75.120355ku; 32.85 BMI Method:Stated General Appearance: WD/WN, no apparent distress HEENT: PERRL/EOMI, normal ENT inspection, TMs normal, pharynx normal, other (HEMATOMA TO RIGHT BROW AREA--SWELLING, EARLY BRUISING AND TENDERNESS) Neck: non-tender, full range of motion, supple, normal inspection Cardiovascular: regular rate, rhythm, no murmur Respiratory: chest non-tender, normal breath sounds, no respiratory distress, no accessory muscle use Gastrointestinal: non tender, soft Back: normal inspection, no CVA tenderness, no vertebral tenderness Extremities: normal range of motion, non-tender, normal inspection, no pedal edema, no calf tenderness, normal capillary refill, other (MINOR ABRASION TO RIGHT KNEE. NO SWELLING OR BRUISING AND NON-TENDER. LEFT FOOT IN POST OP SHOE, BOTTOM AND LATERAL ASPECT OF FOOT WITH DRESSING IN PLACE--CLEAN/DRY/INTACT. NO TENDERNESS OR SWELLING OR REDNESS TO FOOT. ) Psychiatric: alert, oriented x 3 Crainal Nerves: normal hearing, normal speech, PERRL Coordination/Gait: normal gait (NORMAL FOR PATIENT--NORMALLY USES A CANE) Motor/Sensory: no sensory deficit, other (SLIGHT WEAKNESS ON LEFT ARM AND LEG--PT STATES IS NORMAL POST - STROKE WEAKNESS. ) Skin: normal color, warm/dry, ecchymosis Progress/Results/Core Measures Results/Orders My Orders Orders - DANNIELLE ALVES DO Ct Head/Face/Cervical Wo (06/05/20 20:24) Cervical Collar (06/05/20 20:24) Vital Signs/I&O 06/05/20 06/05/20 20:20 21:37 Temp 35.8 35.8 Pulse 88 83 Resp 16 16 B/P (MAP) 136/76 (96) 152/80 (96) Pulse Ox 97 95 O2 Delivery Room Air Room Air Progress Progress Note : Progress Note PLACED IN CERVICAL COLLAR ON ARRIVAL. LATER REMOVED AFTER RECEIVING RADIOLOGIST REPORT OF CT OF CERVICAL SPINE AND PT HAS NO NECK PAIN OR TENDERNESS UNEVENTFUL ER STAY Diagnostic Imaging Comments CT HEAD/MAXILLOFACIALS/CERVICAL SPINE--PER RADIOLOGIST REPORT AT 212 IMPRESSION: 1. No hemorrhage or focal intra-axial mass. No CT evidence of large acute territorial ischemia. 2. No acute fracture or dislocation in the cervical spine. 3. No acute facial fracture. 4. Likely acute sinusitis involving the right maxillary sinus. 5. Calcified meningioma overlying the lateral left frontal lobe. 6. Old infarcts in the right occipital lobe, right basal ganglia and left cerebellum. Reviewed: Reviewed by Me Departure Impression Primary Impression: Minor head injury without loss of consciousness Additional Impressions: Periorbital hematoma of right eye ASPIRIN AND PLAVIX THERAPY Cervical strain Abrasion, right knee, initial encounter Disposition: 01 HOME, SELF-CARE Condition: Stable Departure-Patient Inst. Referrals: GAULT,CARMEL R MD (PCP/Family) Primary Care Physician Patient Instructions: Closed Head Injury (DC), Minor Head Injury, Adult ED, Neck Sprain (DC), Skin Abrasions Add. Discharge Instructions: ICE TO SORE AREA AT 20 MINUTE INTERVALS TYLENOL NEEDED FOR PAIN YOU MAY GO TO SLEEP, BUT SOMEONE NEEDS TO WAKE YOU UP EVERY 2 HOURS TO CHECK ON YOU RETURN TO ER IF PROBLEMS All discharge instructions reviewed with patient and/or family. Voiced understanding. DANNIELLE ALVES DO Jun 05, 2020 21:08
--- NOTE | 2020-06-05 21:15 | Diagnostic Imaging Report ---
PROCEDURE: CT head, face, and cervical spine without contrast. TECHNIQUE: Multiple contiguous axial images were obtained through the head, neck, and facial bones without the use of intravenous contrast. Sagittal and coronal reformations through the cervical spine and facial bones were also performed. Auto Exposure Controls were utilized during the CT exam to meet ALARA standards for radiation dose reduction. INDICATION: Fall. Hit head. Scalp contusion. COMPARISON: 09/04/2018. FINDINGS: CT head: No large acute territorial ischemia, mass or hemorrhage. Old infarct is noted in the right occipital lobe and left cerebellum. Calcified meningioma is seen overlying the lateral left frontal lobe. Old lacunar infarct is seen in the right basal ganglia. No evidence of acute hydrocephalus. The basilar cisterns are patent. The calvarium is intact. CT face: No acute facial fracture is visualized. The mandible, zygomatic arches and pterygoid plates are intact. The bilateral TMJ demonstrate normal articulation. No nasal bone fracture. The bony nasal septum is slightly deviated to the right without fracture. Frothy secretions are seen in the right maxillary sinus. The mastoid air cells are well pneumatized. The globes and orbits are symmetric and unremarkable. No evidence of orbital rim fracture. CT cervical spine: No acute fracture or dislocation is seen in the cervical spine. No focal osseous lesion. Vertebral body heights are well maintained. The craniocervical junction is well maintained. Soft tissues of the neck are unremarkable. The included lung apices are clear. IMPRESSION: 1. No hemorrhage or focal intra-axial mass. No CT evidence of large acute territorial ischemia. 2. No acute fracture or dislocation in the cervical spine. 3. No acute facial fracture. 4. Likely acute sinusitis involving the right maxillary sinus. 5. Calcified meningioma overlying the lateral left frontal lobe. 6. Old infarcts in the right occipital lobe, right basal ganglia and left cerebellum. Dictated by: Dictated on workstation # [id number]
[2020-06-05 21:37] VITALS: BP 152/80
== END 2020-06-05 21:40 | disposition home or self-care (01) ==
LOC: EDUNIT# 20:17 → ER 20:19
DX: S09.90XA Unspecified injury of head, initial encounter (principal); S16.1XXA Strain of muscle, fascia and tendon at neck level, initial encounter; S05.11XA Contusion of eyeball and orbital tissues, right eye, initial encounter; S80.211A Abrasion, right knee, initial encounter; I10 Essential (primary) hypertension; I25.10 Atherosclerotic heart disease of native coronary artery without angina pectoris; I69.354 Hemiplegia and hemiparesis following cerebral infarction affecting left non-dominant side; E11.621 Type 2 diabetes mellitus with foot ulcer; L97.529 Non-pressure chronic ulcer of other part of left foot with unspecified severity; K21.9 Gastro-esophageal reflux disease without esophagitis; F41.9 Anxiety disorder, unspecified; F32.9 Major depressive disorder, single episode, unspecified; F17.210 Nicotine dependence, cigarettes, uncomplicated; Z89.421 Acquired absence of other right toe(s); Z88.8 Allergy status to other drugs, medicaments and biological substances; Z88.1 Allergy status to other antibiotic agents; Z79.82 Long term (current) use of aspirin; Z79.02 Long term (current) use of antithrombotics/antiplatelets; Z79.4 Long term (current) use of insulin; Z79.899 Other long term (current) drug therapy; W07.XXXA Fall from chair, initial encounter
CPT/HCPCS: 70450; 70486; 72125

== ENCOUNTER → 2020-06-11 | Outpatient (CLI) | payer OTHER | LOC: WOUNDCARE 08:07 | PROVIDERS: ATTEND Surgery | DX: E11.621 Type 2 diabetes mellitus with foot ulcer (principal); E11.42 Type 2 diabetes mellitus with diabetic polyneuropathy; L97.521 Non-pressure chronic ulcer of other part of left foot limited to breakdown of skin; L97.522 Non-pressure chronic ulcer of other part of left foot with fat layer exposed; K50.019 Crohn's disease of small intestine with unspecified complications; E66.09 Other obesity due to excess calories; Z68.33 Body mass index [BMI] 33.0-33.9, adult | CPT/HCPCS: 99212 ==

== ENCOUNTER 2020-06-28 12:08 | Inpatient (IN) | payer OTHER ==
[~2020-06-28] VITALS: Ht 172.7 cm; Wt 93.9 kg
--- NOTE | 2020-06-28 12:26 | ED Integumentary General ---
General Chief Complaint: Skin/Wound Problems Stated Complaint: CELLULITIS IN L FOOT Source: patient Exam Limitations: no limitations History of Present Illness Date Seen by Provider: June 28, 2020 Time Seen by Provider: 12:10 Initial Comments Patient presents ER by private conveyance with chief complaint of suddenly progressively worsening redness swelling pain with walking on her left foot laterally. She had to wear a boot for a blister on the medial side of her foot for the past couple weeks and it rubbed a blister on the lateral portion of her left foot. She is an insulin dependent diabetic who uses 25 units of Levemir at night and 8 to 12 units of rapid acting insulin with meals. She follows with Dr. Nielsen who she could not get in with this week. She was having wound care done by Dr. Zapata but he was not available. She had to have her right toe amputated recently by Dr. Smith for similar infection. She got a Rocephin shot at the clinic 2 days ago and was started on doxycycline and says the pain swelling redness has only gotten worse. She is not needing anything for pain as long as she is not putting pressure on it. She is had chills but no fever. No nausea vomiting chest pain shortness of air cough diarrhea. Allergies and Home Medications Allergies Coded Allergies: cefdinir (Verified Adverse Reaction, Mild, NAUSEA, yeast infection, 11/08/19) Cephalosporins (Verified Adverse Reaction, Unknown, yeast infections, 11/08/19) Home Medications Aspirin 81 Mg Tablet.dr, 81 MG PO DAILY, (Reported) Atorvastatin Calcium 40 Mg Tablet, 20 MG PO HS, (Reported) TAKES OF A 40MG TAB LAST FILLED 04-17-2019 #30/60 DAY SUPPLY Bupropion HCl 300 Mg Tab.er.24h, 300 MG PO DAILY, (Reported) Clopidogrel Bisulfate 75 Mg Tablet, 75 MG PO DAILY, (Reported) Diphenhydramine HCl 25 Mg Capsule, 25 MG PO HS PRN for SLEEP, (Reported) Insulin Aspart 300 Units/3 Ml Solution, 15 UNITS SQ AC, (Reported) LAST FILLED 05-09-2019 #5 PENS/33 DAY SUPPLY Insulin Detemir 100 Unit/1 Ml Insuln.pen, 25 UNIT SQ HS, (Reported) LAST FILLED 05-09-2019 #5 PENS/75 DAY SUPPLY Lisinopril 5 Mg Tablet, 5 MG PO DAILY, (Reported) Metformin HCl 500 Mg Tablet, 500 MG PO BID, (Reported) Metoprolol Succinate 25 Mg Tab.er.24h, 25 MG PO DAILY, (Reported) Multivitamin 1 Each Tablet, 1 TAB PO DAILY, (Reported) Pantoprazole Sodium 40 Mg Tablet.dr, 40 MG PO DAILY, (Reported) Pregabalin 100 Mg Capsule, 100 MG PO BID, (Reported) Patient Home Medication List Home Medication List Reviewed: Yes Review of Systems Review of Systems Constitutional: chills; No diaphoresis, No fever EENTM: No ear discharge, No ear pain Respiratory: No cough, No short of breath Cardiovascular: No edema, No palpitations Gastrointestinal: No abdominal pain, No nausea, No vomiting Genitourinary: No discharge, No dysuria Musculoskeletal: see HPI; No back pain; joint pain Skin: No pruritus, No rash All Other Systems Reviewed Negative Unless Noted: Yes Past Labbtki-Hosdyc-Uwknlf Hx Patient Social History Alcohol Use: Occasionally Uses Alcohol Beverage of Choice: Beer Smoking Status: Former Smoker Type Used: Cigarettes 2nd Hand Smoke Exposure: Yes Recent Hopitalizations: Yes (JULY 2019-OSTEOMYELITIS) Immunizations Up To Date Tetanus Booster (TDap): Less than 5yrs PED Vaccines UTD: No Date of Pneumonia Vaccine: Jul 30, 2009 Date of Influenza Vaccine: Nov 22, 2019 Seasonal Allergies Seasonal Allergies: Yes Past Medical History Surgeries: Yes (KIDNEY/BLADDER SURG CHILD;LOOP RECORDER;L GREAT TOE AMPUT ATION) Amputation, Appendectomy, Bladder Surgery, Cardiac, Section, Coronary Stent, Gallbladder, Renal Respiratory: No Currently Using CPAP: No Currently Using BIPAP: No Cardiac: Yes (STENT, LOOP RECORDER ) Coronary Artery Disease, Hypertension, Irregular Heartbeat Neurological: Yes (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;PERIP NEUROPATHY ) Neuropathy, Stroke Reproductive Disorders: No Female Reproductive Disorders: Denies CARE PARTNER History: Menopausal Sexually Transmitted Disease: No HIV/AIDS: No Genitourinary: Yes UTI-Chronic Gastrointestinal: Yes (COLONIC STRICTURE) Colitis, Gastroesophageal Reflux, Gall Bladder Disease Musculoskeletal: Yes ( RIGHT GREAT TOE AMPUTATION DUE TO OSTEOMYELITIS) Amputee Endocrine: Yes Diabetes, Insulin dep HEENT: No (READING GLASSES) Loss of Vision: Denies Hearing Impairment: Denies Cancer: No Psychosocial: Yes Anxiety, Depression Integumentary: Yes (DIABETIC FOOT ULCERS; OSTEOMYELITIS OF TOES) Blood Disorders: No Adverse Reaction/Blood Tranf: No Family Medical History Arthritis Cataracts Diabetes mellitus 19 MOTHER FH: lupus 19 MOTHER Hypercholesterolemia Hypertension No Family History of: AIDS Abdominal aortic aneurysm Gustavo's disease Alcoholism Alzheimer's disease Aphasia Asthma Cancer of mouth Cardiovascular disease Colon cancer Completed stroke Congenital disease Congenital heart disease Coronary thrombosis Cystic fibrosis Deafness or hearing loss Dementia Drug abuse Dysphasia Fibrocystic disease of breast Gastroenteritis Glaucoma Headache disorder Infertility Kidney disease Myocardial infarction Neoplasm Not obtainable due to adoption Osteoporosis Parkinson's disease Prostate cancer Psychosocial problem Respiratory disorder Seizure disorder Severe allergy Thyroid disease Tuberculosis Visual disorder Diabetes, Other Conditions/Hx ADDITIONAL PAST MEDICAL/SURGICAL HISTORY: -RIGHT GREAT TOE AMPUTATION 08/02/2019 DUE TO OSTEOMYELITIS-DONE BY DR. SMITH -PERIPHERAL ANGIOGRAM 08/03/[address] GARRISON:FINDINGS: No significant disease in the distal abdominal aorta. Nonselective angiogram of the renal arteries showed bilateral patent renal arteries. Patent bilateral common iliac artery, external iliac artery, common femoral artery. Mild proximal left SFA disease. Patent left popliteal artery and three-vessel runoff below the knee. Patent right SFA, popliteal artery and three-vessel runoff below the knee. CONCLUSION: Minimal PAD. Continue secondary prevention measures. -LOOP RECORDER -CARDIAC CATH WITH STENT TO FIRST DIAGONAL 2013 -KIDNEY AND BLADDER SURGERY CHILD -04/10/20--FLEXIBLE SIGMOIDOSCOPY BY DR. SMITH - -APPENDECTOMY -CHOLECYSTECTOMY Physical Exam Vital Signs Vital Signs - First Documented 06/28/20 12:24 Temp 36.3 Pulse 98 Resp 20 B/P (MAP) 166/104 (124) Pulse Ox 98 O2 Delivery Room Air Capillary Refill : General Appearance: WD/WN, mild distress HEENT: PERRL/EOMI, pharynx normal Neck: full range of motion, normal inspection Cardiovascular: normal peripheral pulses, regular rate, rhythm, tachycardia (100) Respiratory: no respiratory distress, no accessory muscle use Neurologic/Psychiatric: alert, normal mood/affect, oriented x 3 Skin: other (Indurated erythema with a macerated blister on the lateral portion of the fifth metatarsal with an open area draining thin serous fluid on the plantar surface of the distal head of the fifth metatarsal) Progress/Results/Core Measures Results/Orders Lab Results Laboratory Tests Test 06/28/20 12:20 5/14/21 13:12 Range/Units White Blood Count 14.8 H 4.3-11.0 10^3/uL Red Blood Count 4.90 3.80-5.11 10^6/uL Hemoglobin 13.9 11.5-16.0 g/dL Hematocrit 43 35-52 % Mean Corpuscular Volume 88 80-99 fL Mean Corpuscular Hemoglobin 28 25-34 pg Mean Corpuscular Hemoglobin Concent 32 32-36 g/dL Red Cell Distribution Width 12.8 10.0-14.5 % Platelet Count 383 130-400 10^3/uL Mean Platelet Volume 9.6 9.0-12.2 fL Immature Granulocyte % (Auto) 1 % Neutrophils (%) (Auto) 80 H 42-75 % Lymphocytes (%) (Auto) 11 L 12-44 % Monocytes (%) (Auto) 7 0-12 % Eosinophils (%) (Auto) 1 0-10 % Basophils (%) (Auto) 1 0-10 % Neutrophils # (Auto) 11.9 H 1.8-7.8 10^3/uL Lymphocytes # (Auto) 1.6 1.0-4.0 10^3/uL Monocytes # (Auto) 1.1 H 0.0-1.0 10^3/uL Eosinophils # (Auto) 0.1 0.0-0.3 10^3/uL Basophils # (Auto) 0.1 0.0-0.1 10^3/uL Immature Granulocyte # (Auto) 0.1 0.0-0.1 10^3/uL Neutrophils % (Manual) 84 % Lymphocytes % (Manual) 10 % Monocytes % (Manual) 6 % Band Neutrophils % Blood Morphology Comment NORMAL Sodium Level 138 135-145 MMOL/L Potassium Level 4.4 3.6-5.0 MMOL/L Chloride Level 101 98-107 MMOL/L Carbon Dioxide Level 25 21-32 MMOL/L Anion Gap 12 5-14 MMOL/L Blood Urea Nitrogen 17 7-18 MG/DL Creatinine 1.16 0.60-1.30 MG/DL Estimat Glomerular Filtration Rate 48 BUN/Creatinine Ratio 15 Glucose Level 258 H 70-105 MG/DL Lactic Acid Level 2.93 *H 0.50-2.00 MMOL/L Calcium Level 10.0 8.5-10.1 MG/DL Corrected Calcium 10.1 8.5-10.1 MG/DL Total Bilirubin 0.4 0.1-1.0 MG/DL Aspartate Amino Transf (AST/SGOT) 9 5-34 U/L Alanine Aminotransferase (ALT/SGPT) 8 0-55 U/L Alkaline Phosphatase 90 40-136 U/L Total Protein 8.4 H 6.4-8.2 GM/DL Albumin 3.9 3.2-4.5 GM/DL My Orders Orders - DAVIN ZUÑIGA Cbc With Automated Diff (06/28/20 12:19) Comprehensive Metabolic Panel (06/28/20 12:19) Blood Culture (06/28/20 12:19) Sputum Culture (06/28/20 12:19) Urinalysis (06/28/20 12:19) Urine Culture (06/28/20 12:19) Chest 1 View, Ap/Pa Only (06/28/20 12:19) Ed Iv/Invasive Line Start (06/28/20 12:19) Ed Iv/Invasive Line Start (06/28/20 12:19) Vital Signs Adult Sepsis Patie Q15M (06/28/20 12:19) O2 (06/28/20 12:19) Remove Rings In Anticipation O (06/28/20 12:19) Lactic Acid Analyzer (06/28/20 12:19) Ns Iv 1000 Ml (Sodium Chloride 0.9%) (06/28/20 12:30) Piperacillin Sodium/Tazobactam (Zosyn Vi (06/28/20 12:30) Vancomycin Injection (Vancomycin Injecti (06/28/20 12:30) Foot, Left, 3 Views (06/28/20 12:37) Manual Differential (06/28/20 12:20) Protime With Inr (06/28/20 12:52) Partial Thromboplastin Time (06/28/20 12:52) Insulin (Regular) Human (Novolin R (Per (06/28/20 13:15) Ed Iv/Invasive Line Start (06/28/20 13:23) Ns Iv 1000 Ml (Sodium Chloride 0.9%) (06/28/20 13:30) Ns Iv 1000 Ml (Sodium Chloride 0.9%) (06/28/20 13:30) Medications Given in ED Current Medications Medications Dose Ordered Sig/Pearl Route Start Time Stop Time Status Last Admin Dose Admin Insulin Human Regular 5 unit ONCE ONCE SC 06/28/20 13:15 06/28/20 13:16 DC 06/28/20 13:13 5 UNIT Piperacillin Sod/ Tazobactam Sod 4.5 gm/Sodium Chloride 100 ml @ 200 mls/hr ONCE ONCE IV 06/28/20 12:30 06/28/20 12:59 DC 06/28/20 12:54 200 MLS/HR Vital Signs/I&O 06/28/20 06/28/20 06/28/20 12:24 12:32 12:33 Temp 36.3 36.3 36.3 Pulse 98 93 93 Resp 20 20 20 B/P (MAP) 166/104 (124) 153/84 (107) 153/84 Pulse Ox 98 98 98 O2 Delivery Room Air Room Air Progress Progress Note : Time: 12:35 Progress Note Tachycardic so we will initiate a septic work-up were holding off on the coag since there is a shortage. We will see if she has a white count and she truly meets septic criteria. Otherwise she has appeared to have failed outpatient therapy and probably needs surgical consult so we will set her up inpatient on some antibiotics. We have chosen Zosyn and vancomycin for their excellent coverage of Pseudomonas and MRSA. 2 L would be greater than 20 mL/kg based on her estimated weight of 100 kg Diagnostic Imaging Diagonstic Imaging: Xray Plain Films/CT/US/NM/MRI: chest Comments [facility]. [place], [place] NAME: ANDRIY TREVINO [facility] REC#: [id number] PT STATUS: REG ER : 1960 PHYSICIAN: DAVIN ZUÑIGA MD ADMIT DATE: 06/28/20/ER Draft Date of Exam:06/28/20 CHEST 1 VIEW, AP/PA ONLY INDICATION: Sepsis. TECHNIQUE: Frontal chest obtained at 01:11 p.m. and compared to 09/05/2018. FINDINGS: Heart and mediastinal silhouette are normal in appearance. The lungs are clear. There is no pneumothorax or pleural fluid. IMPRESSION: No acute process in the chest. Dictated on workstation # [id number] Dict: 06/28/20 1314 Trans: 06/28/20 1319 [id number] [id number] Interpreted by: ALE KEN MD Electronically signed by: Reviewed: Reviewed by Me Diagonstic Imaging: Xray Plain Films/CT/US/NM/MRI: other (Left foot) Comments [facility] [place] [place] NAME: ANDRIY TREVINO [facility] REC#: [id number] PT STATUS: REG ER : 1960 PHYSICIAN: DAVIN ZUÑIGA MD ADMIT DATE: 06/28/20/ER Draft Date of Exam:06/28/20 FOOT, LEFT, 3 VIEWS EXAMINATION: Left foot at 113 hours. INDICATION: Foot pain. 3 views were obtained. There are no prior studies available for comparison. FINDINGS: There is no fracture, dislocation or acute bony abnormality evident. There is moderate degenerative disease of the phalanges and at the 1st metatarsophalangeal joint. There is also a prominent calcaneal spur. The Lisfranc joint seems well maintained. The soft tissues are unremarkable. IMPRESSION: There are degenerative changes involving the foot but there is no sign of an acute bony abnormality. Dictated on workstation # [id number] Dict: 06/28/20 1315 Trans: 06/28/20 1322 [id number] Interpreted by: BRENDA HOPKINS MD Electronically signed by: Reviewed: Reviewed by Me Departure Communication (Admissions) Time/Spoke to Admitting Phy: 13:00 Discussed the case with Dr. King and she agrees to admit the patient on IV antibiotics with a consult to surgery. Time/Spoke to Consulting Phy: 13:30 Discussed the case with Dr. Cardenas, general surgery and he agrees to consult on the case. Impression Primary Impression: Severe sepsis Additional Impression: Cellulitis of left foot Disposition: ADMITTED INPATIENT Condition: Stable Admissions Decision to Admit Reason: Admit from ER (General) Decision to Admit/Date: June 28, 2020 Time/Decision to Admit Time: 12:30 Departure-Patient Inst. Referrals: CARMEL NIELSEN MD (PCP/Family) Primary Care Physician Focused Exam Sepsis Stage: Severe Sepsis Possible Source: Skin/Soft Tissue Lactate Level 06/28/20 12:20: Lactic Acid Level 2.93*H Height, Weight, BMI Height: 5'8.00" Weight: 166lbs. 0.0oz. [id number]; 31.00 BMI Method:Stated Time of Focused Exam: 13:15 Respiratory: No Accessory Muscle Use, No Respiratory Distress Cardiovascular: Regular Rate, Rhythm (80 hr), No Edema Capillary Refill: Less Than 3 Seconds Peripheral Pulses: 2+ Radial Pulses (R), 2+ Radial Pulses (L) Skin: other (Erythematous indurated and cellulitic appearing left foot) Lactic Acid Level Laboratory Tests Test 06/28/20 12:20 Lactic Acid Level 2.93 MMOL/L (0.50-2.00) *H Within 3hrs of presentation: Admin fluids (Added 1 L to make 30 mL/kg), Admin ABX, Blood cultures prior to ABX's, Focus exam, Lactate level DAVIN ZUÑIGA June 28, 2020 12:25
[2020-06-28] MEDS ORDERED: VANCOMYCIN INJECTION 1,750 MG in NS IV 500 ML 500 ML IV ONE (12:30)
[2020-06-28] MEDS ORDERED: NS IV 1000 ML 1,000 ML IV SCH ×2 (12:30→13:30)
[2020-06-28] MEDS ORDERED: PIPERACILLIN SODIUM/TAZOBACTAM 4.5 GM in NS (IVPB) 100 ML IV ONE (12:30)
[2020-06-28 12:37] LABS: BASOPHILS # (AUTO) 0.1 10^3/uL (0.0-0.1); BASOPHILS % (AUTO) 1 % (0-10); EOSINOPHILS # (AUTO) 0.1 10^3/uL (0.0-0.3); EOSINOPHILS % (AUTO) 1 % (0-10); HEMATOCRIT 43 % (35-52); HEMOGLOBIN 13.9 g/dL (11.5-16.0); LYMPHOCYTES # (AUTO) 1.6 10^3/uL (1.0-4.0); LYMPHOCYTES % (AUTO) 11 % (12-44); MEAN CORPUSCULAR HEMOGLOBIN 28 pg (25-34); MEAN CORPUSCULAR HGB CONC 32 g/dL (32-36); MEAN CORPUSCULAR VOLUME 88 fL (80-99); MEAN PLATELET VOLUME 9.6 fL (9.0-12.2); MONOCYTES # (AUTO) 1.1 10^3/uL (0.0-1.0); MONOCYTES % (AUTO) 7 % (0-12); NEUTROPHILS # (AUTO) 11.9 10^3/uL (1.8-7.8); NEUTROPHILS % (AUTO) 80 % (42-75); PLATELET COUNT 383 10^3/uL (130-400); WHITE BLOOD COUNT 14.8 10^3/uL (4.3-11.0)
[2020-06-28 12:54] LABS: LYMPHOCYTES % (MANUAL) 10 %; MONOCYTES % (MANUAL) 6 %; NEUTROPHILS % (MANUAL) 84 %; RBC MORPH NORMAL
[2020-06-28 12:58] LABS: ALBUMIN 3.9 GM/DL (3.2-4.5)
[2020-06-28 12:59] LABS: POTASSIUM 4.4 MMOL/L (3.6-5.0)
[2020-06-28 13:01] LABS: TOTAL PROTEIN 8.4 GM/DL (6.4-8.2)
[2020-06-28 13:03] LABS: BILIRUBIN,TOTAL 0.4 MG/DL (0.1-1.0)
[2020-06-28 13:04] LABS: CREATININE SERUM 1.16 MG/DL (0.60-1.30)
[2020-06-28] MEDS ORDERED: inSUlin (REGULAR) HUMAN 1 UNIT/0.01 ML (CHARGE PER UNIT) SC ONE (13:15)
--- NOTE | 2020-06-28 13:19 | Diagnostic Imaging Report ---
INDICATION: Sepsis. TECHNIQUE: Frontal chest obtained at 01:11 p.m. and compared to 09/05/2018. FINDINGS: Heart and mediastinal silhouette are normal in appearance. The lungs are clear. There is no pneumothorax or pleural fluid. IMPRESSION: No acute process in the chest. Dictated by: Dictated on workstation # [id number]
--- NOTE | 2020-06-28 13:22 | Diagnostic Imaging Report ---
EXAMINATION: Left foot at 113 hours. INDICATION: Foot pain. 3 views were obtained. There are no prior studies available for comparison. FINDINGS: There is no fracture, dislocation or acute bony abnormality evident. There is moderate degenerative disease of the phalanges and at the 1st metatarsophalangeal joint. There is also a prominent calcaneal spur. The Lisfranc joint seems well maintained. The soft tissues are unremarkable. IMPRESSION: There are degenerative changes involving the foot but there is no sign of an acute bony abnormality. Dictated by: Dictated on workstation # [id number]
[2020-06-28] MEDS ORDERED: NS IV 1000 ML 1,000 ML IV ONE (13:30)
[2020-06-28 13:47] LABS: INR 1.1 (0.8-1.4)
[2020-06-28 14:22] VITALS: BP 159/71
[2020-06-28] MEDS ORDERED: ONDANSETRON 4 MG/2 ML (SDV) Z0FRAN IV PRN (14:30)
[2020-06-28] MEDS ORDERED: fentaNYL INJ 100 MCG/2 ML AMP IV PRN (14:30)
[2020-06-28 14:50] VITALS: BP 159/71
[2020-06-28] MEDS ORDERED: CATHETER FLUSH 10 ML SYR IV PRN (15:00)
[2020-06-28] MEDS: 1/2 NS IV SOLUTION 1,000 ML IV SCH ×2 (15:05→22:22)
[2020-06-28 15:39] LABS: BILIRUBIN,URINE NEGATIVE (NEGATIVE); CLARITY,URINE CLEAR; COLOR,URINE YELLOW; GLUCOSE, URINE (UA) TRACE (NEGATIVE); KETONES,URINE NEGATIVE (NEGATIVE); LEUKOCYTE ESTERASE ,URINE NEGATIVE (NEGATIVE); NITRITE,URINE NEGATIVE (NEGATIVE); PH,URINE 5.5 (5-9); PROTEIN,URINE NEGATIVE (NEGATIVE)
[2020-06-28 15:54] LABS: BACTERIA,URINE TRACE /HPF
[2020-06-28] MEDS ORDERED: EXEN2AUT SQ (15:55)
[2020-06-28] MEDS ORDERED: METF-478 PO ×2 (15:55)
[2020-06-28] MEDS ORDERED: ACET-2840 PO (16:01)
[2020-06-28] MEDS ORDERED: FLUC150T2 PO (16:01)
[2020-06-28] MEDS ORDERED: DOXY100C2 PO (16:01)
[2020-06-28 16:16] VITALS: BP 140/67
[2020-06-28] MEDS: inSUlin ASPART (NovoLOG) 1 UNIT/0.01 ML (CHARGE PER UNIT) SC SCH ×2 (16:53→20:24)
--- NOTE | 2020-06-28 17:25 | Consultation - Surgery ---
History of Present Illness History of Present Illness Patient Consulted On(davina/time) 06/28/20 17:19 Time Seen by Provider: 16:58 History of Present Illness Surgery asked to consult regarding Left foot cellulitis. HPI per ED: Patient presents ER by private conveyance with chief complaint of suddenly progressively worsening redness swelling pain with walking on her left foot laterally. She had to wear a boot for a blister on the medial side of her foot for the past couple weeks and it rubbed a blister on the lateral portion of her left foot. She is an insulin dependent diabetic who uses 25 units of Levemir at night and 8 to 12 units of rapid acting insulin with meals. She follows with Dr. Johnson who she could not get in with this week. She was having wound care done by Dr. Zapata but he was not available. She had to have her right toe amputated recently by Dr. Loo for similar infection. She got a Rocephin shot at the clinic 2 days ago and was started on doxycycline and says the pain swelling redness has only gotten worse. She is not needing anything for pain as long as she is not putting pressure on it. She is had chills but no fever. No nausea vomiting chest pain shortness of air cough diarrhea. When I spoke to pt she states that she just woke up today and the redness was much worse. She has hx of Osteomyelitis, but it was on right foot and had to have toe amputation. She states that time was much worse than the left foot looks today; "then the toe was black". Pt states the pain in minimal. Allergies and Home Medications Allergies Coded Allergies: cefdinir (Verified Adverse Reaction, Mild, NAUSEA, yeast infection, 11/08/19) Cephalosporins (Verified Adverse Reaction, Unknown, yeast infections, 11/08/19) Home Medications Acetaminophen 650 Mg Tablet.er, 650-1,300 MG PO BID PRN for PAIN-MILD (1-4), (Reported) Last Action: Held Aspirin 81 Mg Tablet.dr, 81 MG PO DAILY, (Reported) Last Action: Continued Bupropion HCl 300 Mg Tab.er.24h, 300 MG PO DAILY, (Reported) LAST FILLED 01-29-2020 #90 Last Action: Converted Clopidogrel Bisulfate 75 Mg Tablet, 75 MG PO DAILY, (Reported) Last Action: Continued Doxycycline Hyclate 100 Mg Capsule, 100 MG PO BID, (Reported) FILLED 06-26-2020 #20/10 DAY SUPPLY Last Action: Held Exenatide Microspheres 2 Mg/0.85 Ml Auto.injct, 2 MG SQ TUE, (Reported) Last Action: Held Fluconazole 150 Mg Tablet, 150 MG PO Q72H, (Reported) FILLED 06-26-2020 #2 Last Action: Held Insulin Aspart 300 Units/3 Ml Solution, 15 UNITS SQ AC, (Reported) Last Action: Held Insulin Detemir 100 Unit/1 Ml Insuln.pen, 25 UNIT SQ HS, (Reported) Last Action: Converted Metformin HCl 500 Mg Tab.er.24, 1,000 MG PO DAILY, (Reported) Last Action: Held Metoprolol Succinate 25 Mg Tab.er.24h, 25 MG PO DAILY, (Reported) Last Action: Reviewed Pantoprazole Sodium 40 Mg Tablet.dr, 40 MG PO DAILY, (Reported) Last Action: Continued Pregabalin 100 Mg Capsule, 100 MG PO BID, (Reported) Last Action: Continued Patient Home Medication List Home Medication List Reviewed: Yes Past Hldleim-Zdspbi-Bqwfex Hx Patient Social History Number of Drinks Today: AA Smoking Status: Former Smoker Former Smoker, Quit: Jul 31, 2019 Type Used: Cigarettes 2nd Hand Smoke Exposure: Yes Recent Hopitalizations: Yes (JULY 2019-) Alcohol Use?: Yes Have you traveled recently?: No Immunizations Up To Date Tetanus Booster (TDap): Less than 5yrs PED Vaccines UTD: No Date of Pneumonia Vaccine: Jul 30, 2009 Date of Influenza Vaccine: Nov 16, 2019 Seasonal Allergies Seasonal Allergies: Yes Surgeries History of Surgeries: Yes (KIDNEY/BLADDER SURG CHILD;LOOP RECORDER;L GREAT TOE AMPUTATION) Surgeries: Amputation, Appendectomy, Bladder Surgery, Cardiac, Section, Coronary Stent, Gallbladder, Renal Respiratory History of Respiratory Disorde: No Cardiovascular History of Cardiac Disorders: Yes (STENT, LOOP RECORDER ) Cardiac Disorders: Coronary Artery Disease, Hypertension, Irregular Heartbeat Neurological History of Neurological Disord: Yes (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;PERIP NEUROPATHY ) Neurological Disorders: Neuropathy, Stroke Reproductive System Hx Reproductive Disorders: No Sexually Transmitted Disease: No HIV/AIDS: No Female Reproductive Disorders: Denies OPHTHALMIC ASSISTANT History: Menopausal Genitourinary History of Genitourinary Disor: Yes Genitourinary Disorders: UTI-Chronic Gastrointestinal History of Gastrointestinal Di: Yes (COLONIC STRICTURE) Gastrointestinal Disorders: Colitis, Gastroesophageal Reflux, Gall Bladder Disease Musculoskeletal History of Musculoskeletal Dis: Yes ( RIGHT GREAT TOE AMPUTATION DUE TO OSTEOMYELITIS) Musculoskeletal Disorders: Amputee Endocrine History of Endocrine Disorders: Yes Endocrine Disorders: Diabetes, Insulin dep HEENT History of HEENT Disorders: No (READING GLASSES) Loss of Vision: Denies Hearing Impairment: Denies Cancer History of Cancer: No Psychosocial History of Psychiatric Problem: Yes Behavioral Health Disorders: Anxiety, Depression Integumentary History of Skin or Integumenta: Yes (DIABETIC FOOT ULCERS; OSTEOMYELITIS OF TOES) Blood Transfusions History of Blood Disorders: No Adverse Reaction to a Blood Tr: No Family Medical History Significant Family History: Diabetes, Hypertension, Other Conditions/Hx Family Medial History: Arthritis Cataracts Diabetes mellitus 19 MOTHER FH: lupus 19 MOTHER Hypercholesterolemia Hypertension Review of Systems-General Constitutional: chills; No dizziness, No fever; malaise EENTM: No blurred vision, No double vision, No epistaxis, No throat swelling Respiratory: No cough, No dyspnea on exertion Cardiovascular: No chest pain; palpitations Gastrointestinal: No abdominal pain, No melena, No nausea, No vomiting Genitourinary: No dysuria, No frequency, No hematuria Musculoskeletal: joint pain, joint swelling, muscle stiffness Skin: see HPI; No change in hair/nails Psychiatric/Neurological: Anxiety, Depressed, Paresthesia; Denies Seizure Other Pt is on plavix and states she bleeds and bruises easily Physical Exam-General Problems Physical Exam Vital Signs Vital Signs - First Documented 06/28/20 12:24 Temp 36.3 Pulse 98 Resp 20 B/P (MAP) 166/104 (124) Pulse Ox 98 O2 Delivery Room Air Capillary Refill : Less Than 3 Seconds General Appearance: WD/WN, no apparent distress, obese Eyes: Bilateral Eye PERRL, Bilateral Eye EOMI HEENT: pharynx normal; No scleral icterus (R), No scleral icterus (L) Neck: non-tender, supple Respiratory: chest non-tender, lungs clear, normal breath sounds, no respiratory distress, no accessory muscle use Cardiovascular: regular rate, rhythm, no murmur Gastrointestinal: normal bowel sounds, non tender, soft, no organomegaly Back: no CVA tenderness, no vertebral tenderness Extremities: no pedal edema, no calf tenderness, other (right 1st toe amputated, Left foot erythema on top of foot, bunion at 5th toe and healed ulcer under 1st toe at ball of feet) Neurologic/Psychiatric: diagnostic assistant II-XII nml as tested, alert, normal mood/affect, oriented x 3 Skin: normal color, warm/dry Lymphatic: no adenopathy (neck, axilla or groin) Data Review Labs Laboratory Tests 06/28/20 12:20: White Blood Count 14.8H, Red Blood Count 4.90, Hemoglobin 13.9, Hematocrit 43, Mean Corpuscular Volume 88, Mean Corpuscular Hemoglobin 28, Mean Corpuscular Hemoglobin Concent 32, Red Cell Distribution Width 12.8, Platelet Count 383, Mean Platelet Volume 9.6, Immature Granulocyte % (Auto) 1, Neutrophils (%) (Auto) 80H, Lymphocytes (%) (Auto) 11L, Monocytes (%) (Auto) 7, Eosinophils (%) (Auto) 1, Basophils (%) (Auto) 1, Neutrophils # (Auto) 11.9H, Lymphocytes # (Auto) 1.6, Monocytes # (Auto) 1.1H, Eosinophils # (Auto) 0.1, Basophils # (A uto) 0.1, Immature Granulocyte # (Auto) 0.1, Neutrophils % (Manual) 84, Lymphocytes % (Manual) 10, Monocytes % (Manual) 6, Band Neutrophils , Blood Morphology Comment NORMAL, Sodium Level 138, Potassium Level 4.4, Chloride Level 101, Carbon Dioxide Level 25, Anion Gap 12, Blood Urea Nitrogen 17, Creatinine 1.16, Estimat Glomerular Filtration Rate 48, BUN/Creatinine Ratio 15, Glucose Level 258H, Lactic Acid Level 2.93*H, Calcium Level 10.0, Corrected Calcium 10.1, Total Bilirubin 0.4, Aspartate Amino Transf (AST/SGOT) 9, Alanine Aminotransferase (ALT/SGPT) 8, Alkaline Phosphatase 90, Total Protein 8.4H, Albumin 3.9 06/28/20 13:12: Prothrombin Time 15.0H, INR Comment 1.1, Activated Partial Thromboplast Time 37H 06/28/20 14:50: Lactic Acid Level 2.11*H 06/28/20 15:30: Urine Color YELLOW, Urine Clarity CLEAR, Urine pH 5.5, Urine Specific [place] 1.025H, Urine Protein NEGATIVE, Urine Glucose (UA) TRACEH, Urine Ketones NEGATIVE, Urine Nitrite NEGATIVE, Urine Bilirubin NEGATIVE, Urine Urobilinogen 0.2, Urine Leukocyte Esterase NEGATIVE, Urine RBC (Auto) NEGATIVE, Urine RBC NONE, Urine WBC 2-5, Urine Squamous Epithelial Cells 5-10, Urine Crystals NONE, Urine Bacteria TRACE, Urine Casts NONE, Urine Mucus NEGATIVE, Urine Culture Indicated NO 06/28/20 16:15: Glucometer 178H 06/28/20 17:00: Lactic Acid Level 1.89 Radiology Date of Exam:06/28/20 FOOT, LEFT, 3 VIEWS EXAMINATION: Left foot at 113 hours. INDICATION: Foot pain. 3 views were obtained. There are no prior studies available for comparison. FINDINGS: There is no fracture, dislocation or acute bony abnormality evident. There is moderate degenerative disease of the phalanges and at the 1st metatarsophalangeal joint. There is also a prominent calcaneal spur. The Lisfranc joint seems well maintained. The soft tissues are unremarkable. IMPRESSION: There are degenerative changes involving the foot but there is no sign of an acute bony abnormality. Dictated on workstation # [id number] Dict: 06/28/20 1315 Trans: 06/28/20 1322 [id number] Interpreted by: BRENDA HOPKINS MD Electronically signed by: Assessment/Plan Assessment/Plan Assessment/Plan Left Foot Cellulitis DM Afib Obesity Plan is to continue IV ABX and monitor foot, will need to control DM; which will help with cellulitis. She may need US vs CT or possibly an MRI; but doesn't troy ear to be an osteomyelitis. I don't feel any fluctuance; so no indications for any incision and drainage at this point. Will follow along. CLAYTON OCAMPO DO June 28, 2020 17:25
[2020-06-28] MEDS: PIPERACILLIN/TAZO 4.5 GM/NS 100 ML IV SCH ×2 (18:25)
[2020-06-28 19:00] VITALS: BP 160/76
[2020-06-28] MEDS: PREGABALIN 100 MG (LYRICA) CAPSULE PO SCH (20:23)
[2020-06-28] MEDS ORDERED: PREGABALIN 100 MG (LYRICA) CAPSULE PO SCH (21:00)
[2020-06-28] MEDS ORDERED: NON-FORMULARY MEDICATION 1 EA EA (Insulin Detemir (Levemir Flextouch) 25 UNIT) SQ SCH (21:00)
[2020-06-28] MEDS: diphenhydrAMINE 25 MG TAB (BENADRYL) PO SCH (22:22)
[2020-06-29 00:14] VITALS: BP 119/68
[2020-06-29] MEDS: VANCOMYCIN 1 GM/NS 250 ML IVPB IV SCH ×4 (00:28→13:10)
[2020-06-29] MEDS: 1/2 NS IV SOLUTION 1,000 ML IV SCH (04:16)
[2020-06-29] MEDS: PIPERACILLIN/TAZO 4.5 GM/NS 100 ML IV SCH ×6 (04:16→18:09)
[2020-06-29 04:38] LABS: BASOPHILS # (AUTO) 0.1 10^3/uL (0.0-0.1); BASOPHILS % (AUTO) 1 % (0-10); EOSINOPHILS # (AUTO) 0.2 10^3/uL (0.0-0.3); EOSINOPHILS % (AUTO) 2 % (0-10); HEMATOCRIT 34 % (35-52); HEMOGLOBIN 10.9 g/dL (11.5-16.0); LYMPHOCYTES # (AUTO) 2.1 10^3/uL (1.0-4.0); LYMPHOCYTES % (AUTO) 19 % (12-44); MEAN CORPUSCULAR HGB CONC 32 g/dL (32-36); MEAN CORPUSCULAR VOLUME 88 fL (80-99); MEAN PLATELET VOLUME 9.6 fL (9.0-12.2); MONOCYTES # (AUTO) 1.2 10^3/uL (0.0-1.0); MONOCYTES % (AUTO) 10 % (0-12); NEUTROPHILS # (AUTO) 7.6 10^3/uL (1.8-7.8); NEUTROPHILS % (AUTO) 68 % (42-75); PLATELET COUNT 308 10^3/uL (130-400); WHITE BLOOD COUNT 11.2 10^3/uL (4.3-11.0)
[2020-06-29 04:39] VITALS: BP 120/70
[2020-06-29 04:44] LABS: MEAN CORPUSCULAR HEMOGLOBIN 28 pg (25-34)
[2020-06-29 04:50] LABS: CHLORIDE 106 MMOL/L (98-107); SODIUM 139 MMOL/L (135-145)
[2020-06-29 04:51] LABS: CALCIUM 8.7 MG/DL (8.5-10.1); GLUCOSE 123 MG/DL (70-105)
[2020-06-29 04:53] LABS: CARBON DIOXIDE 24 MMOL/L (21-32)
[2020-06-29 04:55] LABS: CREATININE SERUM 0.91 MG/DL (0.60-1.30); GFR ESTIMATED > 60
[2020-06-29 04:56] LABS: BUN/CREATININE RATIO 14
[2020-06-29] MEDS: inSUlin ASPART (NovoLOG) 1 UNIT/0.01 ML (CHARGE PER UNIT) SC SCH ×4 (05:13→20:37)
[2020-06-29 07:45] VITALS: BP 135/77
[2020-06-29] MEDS: buPROPion SR 150 MG (WELLBUTRIN SR) TAB PO SCH ×2 (08:12→18:09)
[2020-06-29] MEDS: ASPIRIN E.C. 81 MG (ECOTRIN) TAB PO SCH (08:12)
[2020-06-29] MEDS: CLOPIDOGREL 75 MG (PLAVIX) TABLET PO SCH (08:13)
[2020-06-29] MEDS: ACETAMINOPHEN 325 MG TABLET PO PRN ×2 (08:13→20:37)
[2020-06-29] MEDS: PANTOPRAZOLE 40 MG (PROTONIX) TAB PO SCH (08:13)
[2020-06-29] MEDS: PREGABALIN 100 MG (LYRICA) CAPSULE PO SCH ×2 (08:13→20:37)
[2020-06-29] MEDS ORDERED: PANTOPRAZOLE 40 MG (PROTONIX) TAB PO SCH (09:00)
[2020-06-29] MEDS ORDERED: ASPIRIN 81 MG CHEW (CHILDREN'S ASA) PO SCH (09:00)
[2020-06-29] MEDS ORDERED: CLOPIDOGREL 75 MG (PLAVIX) TABLET PO SCH (09:00)
[2020-06-29] MEDS ORDERED: NON-FORMULARY MEDICATION 1 EA EA (Bupropion HCl (Bupropion Xl) 300 MG) PO SCH (09:00)
--- NOTE | 2020-06-29 10:50 | History & Physical-Hospitalist ---
History of Present Illness HPI/Chief Complaint This is a 60-year-old white female who presented to the emergency room yesterday with increased pain and swelling of her left foot. She had been started on antibiotics as an outpatient but it has begun to get worse. She does have a history of a previous amputation secondary to infection on the other foot. This morning she is awake and alert and feels like the foot is a little bit better and she is having less pain, swelling Source: patient Exam Limitations: no limitations Date Seen 06/29/20 Time Seen by a Provider: 09:45 Attending Physician Valarie King MD PCP Carmel Nielsen MD Referring Physician Date of Admission June 28, 2020 at 13:43 Home Medications & Allergies Home Medications Reviewed patient Home Medication Reconciliation performed by pharmacy medication reconciliations aviation electronics technician and/or nursing. Patients Allergies have been reviewed. Allergies Allergies Coded Allergies cefdinir (Verified Adverse Reaction, Mild, NAUSEA, yeast infection, 11/08/19) Cephalosporins (Verified Adverse Reaction, Unknown, yeast infections, 11/08/19) Patient Social History Marrital Status: single Tobacco Use?: Yes Tobacco type used: Cigarettes Smoking Status: Former Smoker Smokeless Tobacco Frequency: Former User Use of E-Cig and/or Vaping dev: No Substance use?: No Alcohol Use?: Yes Alcohol Frequency: Rarely Pt stated abuse/neglect: No Immunizations Up To Date Influenza Vaccine Up-to-Date: Yes; Up-to-Date First/Initial COVID19 Vaccinat: may 01, 2020 Second COVID19 Vaccination Shane: may 30, 2020 Tetanus Booster (TDap): Unknown Hepatitis A: No Hepatitis B: No TB Skin Test: None Date of Pneumonia Vaccine: Jul 30, 2009 Current Status status: No status: No Do you have an Advance Directi: No Advance Directive Location: Unable to obtain copy Communicates: Verbally Primary Language: Filipino Preferred Spoken Language: Filipino Is interpretation needed?: No Family Medical History Family Hx: ADDITIONAL PAST MEDICAL/SURGICAL HISTORY: -RIGHT GREAT TOE AMPUTATION 08/02/2019 DUE TO OSTEOMYELITIS-DONE BY DR. SMITH -PERIPHERAL ANGIOGRAM 08/03/[address] GARRISON:FINDINGS: No significant disease in the distal abdominal aorta. Nonselective angiogram of the renal arteries showed bilateral patent renal arteries. Patent bilateral common iliac artery, external iliac artery, common femoral artery. Mild proximal left SFA disease. Patent left popliteal artery and three-vessel runoff below the knee. Patent right SFA, popliteal artery and three-vessel runoff below the knee. CONCLUSION: Minimal PAD. Continue secondary prevention measures. -LOOP RECORDER -CARDIAC CATH WITH STENT TO FIRST DIAGONAL 2013 -KIDNEY AND BLADDER SURGERY CHILD -04/10/20--FLEXIBLE SIGMOIDOSCOPY BY DR. SMITH - -APPENDECTOMY -CHOLECYSTECTOMY Review of Systems Constitutional: see HPI EENTM: no symptoms reported Respiratory: no symptoms reported Cardiovascular: no symptoms reported Gastrointestinal: other (Colitis in the past but that is better now) Genitourinary: no symptoms reported Musculoskeletal: see HPI, joint pain, joint swelling Skin: change in color Psychiatric/Neurological: No Symptoms Reported Physical Exam Physical Exam Vital Signs Vital Signs - First Documented 06/28/20 12:24 Temp 36.3 Pulse 98 Resp 20 B/P (MAP) 166/104 (124) Pulse Ox 98 O2 Delivery Room Air Capillary Refill : Less Than 3 Seconds Height, Weight, BMI Height: 5'8.00" Weight: 166lbs. 0.0oz. [id number]; 31.48 BMI Method:Stated General Appearance: No Apparent Distress, WD/WN HEENT: Normal ENT Inspection Neck: Full Range of Motion, Normal Inspection, Non Tender, Supple Respiratory: Lungs Clear, Normal Breath Sounds, No Accessory Muscle Use, No Respiratory Distress Cardiovascular: Regular Rate, Rhythm, No Gallop, No Murmur, Normal Peripheral Pulses Gastrointestinal: Normal Bowel Sounds, Non Tender, Soft Rectal: Deferred Back: Normal Inspection Extremity: Inflammation, Pedal Edema, Swelling (Left lateral foot) Neurologic/Psychiatric: Alert, Oriented x3, No Motor/Sensory Deficits, Normal Mood/Affect Skin: Erythema Results Results/Procedures Labs Laboratory Tests 06/28/20 12:20 06/29/20 04:26 Patient resulted labs reviewed. Imaging: Reviewed Imaging Report Assessment/Plan Admission Diagnosis Sepsis secondary to cellulitis with elevated white count lactic acid and tachycardia Cellulitis surgical consult appreciated. no evidence of osteomyelitis at this time however it may require an MRI for further evaluation-we will check a sed rate to follow day #2 piperacillin and vancomycin Type 2 diabetes on insulin Previous amputation Coronary artery disease Tobaccoism curtailed History of colitis Hypertension Hyperlipidemia Admission Status: Inpatient Order (span 2 midnights) Reason for Inpatient Admission: Wound care and IV antibiotics to avoid osteomyelitis Diagnosis/Problems Diagnosis/Problems (1) Sepsis Status: Acute Qualifiers: Severe sepsis shock status: without septic shock (2) Cellulitis of left foot Status: Acute (3) Diabetes Status: Chronic Qualifiers: Diabetes mellitus type: type 2 Diabetes mellitus buttermaker continuous churn insulin use: unspecified penitentiary insulin use status Diabetes mellitus complication detail: with unspecified neuropathy (4) CAD (coronary artery disease) Status: Chronic (5) HTN (hypertension) Status: Chronic (6) History of colitis Status: Resolved Resolution Date/Time: 06/29/20 @ 11:06 (7) CVA (cerebral vascular accident) Status: Resolved Resolution Date/Time: 06/29/20 @ 11:06 Copy Copies To 1: CARMEL NIELSEN MD, KATHLEEN M MD June 29, 2020 10:50
[2020-06-29 11:55] VITALS: BP 132/85
--- NOTE | 2020-06-29 13:09 | Progress Note - Surgery ---
Subjective Time Seen by a Provider: 12:32 Subjective/Events-last exam Pt seen and examined, she thinks her foot is better "there is less redness". Denies pain Review of Systems General: No Chills, No Night Sweats Pulmonary: No Dyspnea, No Cough Cardiovascular: No: Chest Pain, Palpitations Gastrointestinal: No: Nausea, Vomiting Focused Exam Lactate Level 06/28/20 12:20: Lactic Acid Level 2.93*H 06/28/20 14:50: Lactic Acid Level 2.11*H 06/28/20 17:00: Lactic Acid Level 1.89 Time of Focused Exam: 13:15 Objective Exam Vital Signs Date Time Temp Pulse Resp B/P (MAP) Pulse Ox O2 Delivery O2 Flow Rate FiO2 06/29/20 11:55 36.0 84 18 132/85 (101) 96 Room Air 06/29/20 08:00 94 Room Air 06/29/20 07:45 36.4 84 18 135/77 (96) 95 Room Air 06/29/20 04:39 36.4 92 16 120/70 (87) 95 Room Air 06/29/20 00:14 36.8 87 18 119/68 (85) 94 Room Air 06/28/20 20:55 94 Room Air 06/28/20 19:00 36.6 86 20 160/76 (104) 96 Room Air 06/28/20 16:16 36.6 84 18 140/67 (91) 97 Room Air 06/28/20 15:39 Room Air 06/28/20 14:50 36.2 85 96 06/28/20 14:22 36.2 85 20 159/71 (100) 99 Room Air 06/28/20 14:08 36.3 93 20 153/84 (107) 98 Room Air I & O 06/29/20 07:00 Intake Total 2000 ml Output Total 1350 ml Balance 650 ml Capillary Refill : Less Than 3 Seconds General Appearance: No Apparent Distress, WD/WN Neck: Supple Respiratory: Lungs Clear, Normal Breath Sounds, No Accessory Muscle Use, No Respiratory Distress Cardiovascular: Regular Rate, Rhythm, No Murmur Peripheral Pulses: 2+ Radial Pulses (R), 2+ Radial Pulses (L) Gastrointestinal: non tender, soft, no organomegaly Extremity: Inflammation (??maybe less erythema compared to yesterday), Pedal Edema (both feet), Swelling (Left lateral foot) Neurologic/Psychiatric: Alert, Oriented x3 Results Lab Laboratory Tests 06/28/20 13:12: Prothrombin Time 15.0H, INR Comment 1.1, Activated Partial Thromboplast Time 37H 06/28/20 14:50: Lactic Acid Level 2.11*H 06/28/20 15:30: Urine Color YELLOW, Urine Clarity CLEAR, Urine pH 5.5, Urine Specific [place] 1.025H, Urine Protein NEGATIVE, Urine Glucose (UA) TRACEH, Urine Ketones NEGATIVE, Urine Nitrite NEGATIVE, Urine Bilirubin NEGATIVE, Urine Urobilinogen 0.2, Urine Leukocyte Esterase NEGATIVE, Urine RBC (Auto) NEGATIVE, Urine RBC NONE, Urine WBC 2-5, Urine Squamous Epithelial Cells 5-10, Urine Crystals NONE, Urine Bacteria TRACE, Urine Casts NONE, Urine Mucus NEGATIVE, Urine Culture Indicated NO 06/28/20 16:15: Glucometer 178H 06/28/20 17:00: Lactic Acid Level 1.89 06/28/20 19:56: Glucometer 224H 06/29/20 04:26: White Blood Count 11.2H, Red Blood Count 3.83, Hemoglobin 10.9#L, Hematocrit 34L , Mean Corpuscular Volume 88, Mean Corpuscular Hemoglobin 28, Mean Corpuscular Hemoglobin Concent 32, Red Cell Distribution Width 12.9, Platelet Count 308, Mean Platelet Volume 9.6, Immature Granulocyte % (Auto) 1, Neutrophils (%) (Auto) 68, Lymphocytes (%) (Auto) 19, Monocytes (%) (Auto) 10, Eosinophils (%) (Auto) 2, Basophils (%) (Auto) 1, Neutrophils # (Auto) 7.6, Lymphocytes # (Auto) 2.1, Monocytes # (Auto) 1.2H, Eosinophils # (Auto) 0.2, Basophils # (Auto) 0.1, Immature Granulocyte # (Auto) 0.1, Sodium Level 139, Potassium Level 4.0, Chloride Level 106, Carbon Dioxide Level 24, Anion Gap 9, Blood Urea Nitrogen 13, Creatinine 0.91, Estimat Glomerular Filtration Rate > 60, BUN/Creatinine Ratio 14, Glucose Level 123H, Calcium Level 8.7 06/29/20 11:02: Glucometer 258H Microbiology 06/28/20 Urine Culture - Final, Complete NO GROWTH Assessment/Plan Assessment/Plan Assessment/Plan Left Foot Cellulitis DM Afib Obesity Plan is to continue IV ABX and monitor foot, will need to control DM; which will help with cellulitis. Her foot is more edematous today, but she has been sitting up in chair. I told her to elevate foot more than it dangles down. I don't think she will need US, CT or an MRI at this time; looks like just a cellulitis. Will continue to follow along. CLAYTON OCAMPO DO June 29, 2020 13:09
[2020-06-29 15:30] VITALS: BP 137/65
[2020-06-29] MEDS: diphenhydrAMINE 25 MG TAB (BENADRYL) PO SCH (22:16)
[2020-06-29 23:45] VITALS: BP 147/74
[2020-06-30] MEDS ORDERED: [UNRECOGNIZED DRUG - REMARK] XX NR
[2020-06-30] MEDS: VANCOMYCIN 1 GM/NS 250 ML IVPB IV SCH ×4 (01:12→15:15)
[2020-06-30] MEDS: PIPERACILLIN/TAZO 4.5 GM/NS 100 ML IV SCH ×6 (02:58→17:42)
[2020-06-30] MEDS: inSUlin ASPART (NovoLOG) 1 UNIT/0.01 ML (CHARGE PER UNIT) SC SCH ×4 (05:51→20:59)
[2020-06-30] MEDS: ACETAMINOPHEN 325 MG TABLET PO PRN ×3 (05:56→21:07)
[2020-06-30 07:35] VITALS: BP 148/82
[2020-06-30] MEDS: buPROPion SR 150 MG (WELLBUTRIN SR) TAB PO SCH ×2 (08:05→17:11)
[2020-06-30] MEDS: PANTOPRAZOLE 40 MG (PROTONIX) TAB PO SCH (09:30)
[2020-06-30] MEDS: ASPIRIN E.C. 81 MG (ECOTRIN) TAB PO SCH (09:30)
[2020-06-30] MEDS: PREGABALIN 100 MG (LYRICA) CAPSULE PO SCH ×2 (09:30→21:06)
[2020-06-30] MEDS: CLOPIDOGREL 75 MG (PLAVIX) TABLET PO SCH (09:30)
[2020-06-30 11:21] LABS: BASOPHILS # (AUTO) 0.1 10^3/uL (0.0-0.1); BASOPHILS % (AUTO) 1 % (0-10); EOSINOPHILS # (AUTO) 0.3 10^3/uL (0.0-0.3); EOSINOPHILS % (AUTO) 3 % (0-10); HEMATOCRIT 37 % (35-52); HEMOGLOBIN 11.8 g/dL (11.5-16.0); LYMPHOCYTES # (AUTO) 1.7 10^3/uL (1.0-4.0); LYMPHOCYTES % (AUTO) 18 % (12-44); MEAN CORPUSCULAR HEMOGLOBIN 29 pg (25-34); MEAN CORPUSCULAR HGB CONC 32 g/dL (32-36); MEAN CORPUSCULAR VOLUME 89 fL (80-99); MEAN PLATELET VOLUME 9.4 fL (9.0-12.2); MONOCYTES # (AUTO) 0.7 10^3/uL (0.0-1.0); MONOCYTES % (AUTO) 8 % (0-12); NEUTROPHILS # (AUTO) 6.4 10^3/uL (1.8-7.8); NEUTROPHILS % (AUTO) 70 % (42-75); PLATELET COUNT 347 10^3/uL (130-400); WHITE BLOOD COUNT 9.2 10^3/uL (4.3-11.0)
[2020-06-30 11:28] LABS: ALBUMIN 3.3 GM/DL (3.2-4.5); CHLORIDE 104 MMOL/L (98-107); POTASSIUM 4.2 MMOL/L (3.6-5.0); SODIUM 140 MMOL/L (135-145)
[2020-06-30 11:29] LABS: CALCIUM 9.1 MG/DL (8.5-10.1)
[2020-06-30 11:30] LABS: GLUCOSE 209 MG/DL (70-105); TOTAL PROTEIN 7.1 GM/DL (6.4-8.2)
[2020-06-30 11:31] LABS: CARBON DIOXIDE 25 MMOL/L (21-32)
[2020-06-30 11:32] LABS: BILIRUBIN,TOTAL 0.2 MG/DL (0.1-1.0)
[2020-06-30 11:34] LABS: ALKALINE PHOSPHATASE 77 U/L (40-136); CREATININE SERUM 0.89 MG/DL (0.60-1.30); GFR ESTIMATED > 60
--- NOTE | 2020-06-30 11:34 | Progress Note - Surgery ---
Subjective Time Seen by a Provider: 10:38 Subjective/Events-last exam Pt seen and examined, states she feels fine; did have drainage from foot last night. This am she thinks the swelling is down and redness is not worse, but is draining. Review of Systems General: Fatigue Pulmonary: No Dyspnea, No Cough Cardiovascular: No: Chest Pain, Palpitations Gastrointestinal: No: Nausea, Vomiting, Abdominal Pain Focused Exam Lactate Level 06/28/20 12:20: Lactic Acid Level 2.93*H 06/28/20 14:50: Lactic Acid Level 2.11*H 06/28/20 17:00: Lactic Acid Level 1.89 Time of Focused Exam: 13:15 Objective Exam Vital Signs Date Time Temp Pulse Resp B/P (MAP) Pulse Ox O2 Delivery O2 Flow Rate FiO2 06/30/20 08:00 92 Room Air 06/30/20 07:35 36.0 86 20 148/82 (104) 92 Room Air 06/30/20 07:22 92 Room Air 06/29/20 23:45 36.6 81 16 147/74 (98) 94 Room Air 06/29/20 19:47 Room Air 06/29/20 18:49 97 Room Air 06/29/20 15:30 36.6 78 18 137/65 (89) 94 Room Air 06/29/20 11:55 36.0 84 18 132/85 (101) 96 Room Air I & O 06/30/20 07:00 Intake Total 1960 ml Output Total 2600 ml Balance -640 ml Capillary Refill : Less Than 3 Seconds General Appearance: No Apparent Distress, WD/WN Respiratory: Lungs Clear, Normal Breath Sounds, No Accessory Muscle Use, No Respiratory Distress Cardiovascular: Regular Rate, Rhythm, No Murmur Peripheral Pulses: 2+ Radial Pulses (R), 2+ Radial Pulses (L) Gastrointestinal: non tender, soft, no organomegaly Extremity: Inflammation (looks like erythema compared to yesterday), Pedal Edema (has improved), Swelling (Left lateral foot at 5th toe, now draining purulent fluid) Neurologic/Psychiatric: Alert, Oriented x3 Results Lab Laboratory Tests 06/29/20 16:15: Glucometer 151H 06/29/20 20:09: Glucometer 202H 06/30/20 05:48: Glucometer 137H 06/30/20 07:32: Glucometer 174H 06/30/20 11:14: Sodium Level 140, Potassium Level 4.2, Chloride Level 104, Calcium Level 9.1, Corrected Calcium 9.7, Albumin 3.3 Microbiology 06/28/20 Urine Culture - Final, Complete NO GROWTH 06/28/20 Blood Culture - Preliminary, Resulted No growth Assessment/Plan Assessment/Plan Assessment/Plan Left Foot Cellulitis/Abscess - will get culture DM Afib Obesity Plan is to continue IV ABX and monitor foot, will need to control DM; which will help with cellulitis. Her foot is draining today and it looks purulent, will get culture so we can target ABX. I told her to elevate foot more than it dangles down. With the new development of purulence she will she probably needs US or CT and then depending on what they show an MRI if there is anything concerning for osteomyelitis. I will order US first to see if there is any more abscess under skin. CLAYTON OCAMPO DO June 30, 2020 11:34
[2020-06-30 11:35] LABS: BUN/CREATININE RATIO 13
[2020-06-30 11:37] LABS: ALANINE AMINOTRANSFERASE 11 U/L (0-55)
--- NOTE | 2020-06-30 12:50 | Progress Note - Hospitalist ---
Subjective HPI/CC On Admission Date Seen by Provider: June 30, 2020 Time Seen by Provider: 11:15 This is a 60-year-old white female who presented to the emergency room yesterday with increased pain and swelling of her left foot. She had been started on antibiotics as an outpatient but it has begun to get worse. She does have a his tory of a previous amputation secondary to infection on the other foot. This morning she is awake and alert and feels like the foot is a little bit better and she is having less pain, swelling Subjective/Events-last exam Patient has begun to have drainage out of the plantar side of her left foot. She notes that the swelling is perhaps a tad worse. Her case is discussed with Dr. Cardenas. We will plan to proceed with a CT of the foot for evaluation of possible abscess and/or osteomyelitis. C-reactive protein is elevated. Blood sugar was little high today. He is day #3 bank and PIP wound exudate was cultured. Review of Systems Musculoskeletal: foot pain Focused Exam Lactate Level 06/28/20 12:20: Lactic Acid Level 2.93*H 06/28/20 14:50: Lactic Acid Level 2.11*H 06/28/20 17:00: Lactic Acid Level 1.89 Time of Focused Exam: 13:15 Objective Exam Vital Signs Vital Signs Date Time Temp Pulse Resp B/P (MAP) Pulse Ox O2 Delivery O2 Flow Rate FiO2 06/30/20 08:00 92 Room Air 06/30/20 07:35 36.0 86 20 148/82 (104) Capillary Refill : Less Than 3 Seconds General Appearance: No Apparent Distress, WD/WN HEENT: Normal ENT Inspection Neck: Normal Inspection, Non Tender, Supple Respiratory: Chest Non Tender, Lungs Clear, Normal Breath Sounds, No Accessory Muscle Use, No Respiratory Distress Cardiovascular: Regular Rate, Rhythm, No Gallop, No JVD, No Murmur, Normal Peripheral Pulses Gastrointestinal: Normal Bowel Sounds, Non Tender, Soft Rectal: Deferred Back: Normal Inspection, No CVA Tenderness, No Vertebral Tenderness Extremity: Inflammation (Left foot), Swelling Neurologic/Psychiatric: Alert, Oriented x3, No Motor/Sensory Deficits, Normal Mood/Affect Skin: Erythema (Left foot) Results/Procedures Lab Laboratory Tests 06/30/20 11:14 Patient resulted labs reviewed. 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
[2020-06-30] MEDS ORDERED: IOHEXOL 350 MG/ML 100 ML (OMNIPAQUE 350) VIAL IV ONE (13:45)
[2020-06-30] MEDS ORDERED: HOLD METFORMIN - RECEIVED CONTRAST 20 ML VIAL IV SCH (13:45)
[2020-06-30] MEDS ORDERED: NS 100 ML (IVPB) BAG IV ONE (13:45)
[2020-06-30 15:46] VITALS: BP 161/82
--- NOTE | 2020-06-30 16:00 | Diagnostic Imaging Report ---
PROCEDURE: CT left lower extremity with contrast. TECHNIQUE: Multiple axial images of the left lower extremity were obtained after intravenous administration of iodinated contrast. Auto Exposure Controls were utilized during the CT exam to meet ALARA standards for radiation dose reduction. INDICATION: Redness of the left foot. This study is performed to evaluate for abscess. FINDINGS: There appears to be edema along the plantar aspect of the foot at the level of the MTP joints. No soft tissue gas is identified. There is a small fluid collection identified in the soft tissues just lateral to the 5th MTP joint. Fluid measures approximately 17 mm x 8 mm. There is associated soft tissue thickening at this location. The underlying bones of the distal 5th metatarsal as well as the proximal phalanx of the 5th toe appear to be intact without periosteal reaction or bony destructive changes. No other fluid collection is seen. IMPRESSION: Small fluid collection just lateral to the 5th MTP joint correlating with patient's small skin lesion. A small abscess cannot be excluded. There is no soft tissue gas. No bony destructive changes are identified to suggest acute osteomyelitis. Dictated by: Dictated on workstation # [id number]
[2020-06-30] MEDS: diphenhydrAMINE 25 MG TAB (BENADRYL) PO SCH (21:06)
[2020-07-01] MEDS: VANCOMYCIN 1 GM/NS 250 ML IVPB IV SCH ×6 (00:47→22:41)
[2020-07-01 00:51] VITALS: BP 143/78
[2020-07-01] MEDS: PIPERACILLIN/TAZO 4.5 GM/NS 100 ML IV SCH ×6 (03:08→18:07)
[2020-07-01] MEDS: ACETAMINOPHEN 325 MG TABLET PO PRN ×2 (03:09→08:35)
[2020-07-01] MEDS: inSUlin ASPART (NovoLOG) 1 UNIT/0.01 ML (CHARGE PER UNIT) SC SCH ×4 (06:29→21:04)
[2020-07-01 07:49] VITALS: BP 135/74
[2020-07-01 08:12] LABS: BASOPHILS # (AUTO) 0.1 10^3/uL (0.0-0.1); BASOPHILS % (AUTO) 1 % (0-10); EOSINOPHILS # (AUTO) 0.5 10^3/uL (0.0-0.3); EOSINOPHILS % (AUTO) 5 % (0-10); HEMATOCRIT 39 % (35-52); HEMOGLOBIN 12.4 g/dL (11.5-16.0); LYMPHOCYTES # (AUTO) 1.7 10^3/uL (1.0-4.0); LYMPHOCYTES % (AUTO) 19 % (12-44); MEAN CORPUSCULAR HEMOGLOBIN 29 pg (25-34); MEAN CORPUSCULAR HGB CONC 32 g/dL (32-36); MEAN CORPUSCULAR VOLUME 90 fL (80-99); MEAN PLATELET VOLUME 9.5 fL (9.0-12.2); MONOCYTES # (AUTO) 0.7 10^3/uL (0.0-1.0); MONOCYTES % (AUTO) 8 % (0-12); NEUTROPHILS # (AUTO) 6.2 10^3/uL (1.8-7.8); NEUTROPHILS % (AUTO) 67 % (42-75); PLATELET COUNT 372 10^3/uL (130-400); WHITE BLOOD COUNT 9.3 10^3/uL (4.3-11.0)
[2020-07-01] MEDS: PANTOPRAZOLE 40 MG (PROTONIX) TAB PO SCH (08:29)
[2020-07-01] MEDS: ASPIRIN E.C. 81 MG (ECOTRIN) TAB PO SCH (08:29)
[2020-07-01] MEDS: CLOPIDOGREL 75 MG (PLAVIX) TABLET PO SCH (08:29)
[2020-07-01] MEDS: buPROPion SR 150 MG (WELLBUTRIN SR) TAB PO SCH ×2 (08:29→18:07)
[2020-07-01] MEDS: PREGABALIN 100 MG (LYRICA) CAPSULE PO SCH ×2 (08:29→22:41)
[2020-07-01 08:36] LABS: ALBUMIN 3.3 GM/DL (3.2-4.5); BILIRUBIN,TOTAL 0.3 MG/DL (0.1-1.0); CALCIUM 8.9 MG/DL (8.5-10.1); CREATININE SERUM 0.95 MG/DL (0.60-1.30); TOTAL PROTEIN 7.1 GM/DL (6.4-8.2)
--- NOTE | 2020-07-01 09:50 | Diagnostic Imaging Report ---
INDICATION: Fluid collection left foot. Correlation is made with CT study one day earlier. Sonographic interrogation of the area of redness of the lateral left foot was performed. There is edema in the subcutis tissues but no well-formed fluid collection is identified. IMPRESSION: No fluid collection is identified. Dictated by: Dictated on workstation # [id number]
--- NOTE | 2020-07-01 10:19 | Progress Note - Hospitalist ---
Subjective HPI/CC On Admission Date Seen by Provider: July 01, 2020 Time Seen by Provider: 09:30 This is a 60-year-old white female who presented to the emergency room yesterday with increased pain and swelling of her left foot. She had been started on antibiotics as an outpatient but it has begun to get worse. She does have a his tory of a previous amputation secondary to infection on the other foot. This morning she is awake and alert and feels like the foot is a little bit better and she is having less pain, swelling Subjective/Events-last exam Pt doing a lot better Extra-strength Tylenol is being requested for pain Holding Metformin due to contrast study yesterday Lovenox was ordered for immobile state Cellulitic part of her left foot is improved with Vancomycin and Zosyn Dr. Loo will consult since Dr. Zapata is out Overall doing well Review of Systems General: Fatigue, Malaise Neurological: Weakness Focused Exam Lactate Level Time of Focused Exam: 13:15 Objective Exam Vital Signs Vital Signs Date Time Temp Pulse Resp B/P (MAP) Pulse Ox O2 Delivery O2 Flow Rate FiO2 07/02/20 04:01 36.5 78 18 165/76 (105) 93 Room Air Capillary Refill : Less Than 3 Seconds General Appearance: No Apparent Distress, WD/WN, Chronically ill Respiratory: Lungs Clear Cardiovascular: Regular Rate, Rhythm Extremity: Swelling (left ankle) Neurologic/Psychiatric: Alert, Oriented x3 Skin: Other (improved redness left ankle) Results/Procedures Lab Laboratory Tests 07/01/20 07:45 Patient resulted labs reviewed. Imaging: Reviewed Imaging Report Assessment/Plan Assessment and Plan Assess & Plan/Chief Complaint Assessment: Left foot cellulitis with DM ulcer with drainage Prior CVA DM insulin requiring HTN HLP Smoker Plan: IV abx Dr Loo Lovenox [facility] MIYA CASTILLO DO July 01, 2020 10:19
[2020-07-01] MEDS ORDERED: LIDOCAINE 2% 20 ML (XYLOCAINE) VIAL INJ ONE (10:45)
[2020-07-01] MEDS ORDERED: LIDOCAINE 1% INJ 20 ML 20 ML VIAL INJ ONE (11:15)
[2020-07-01] MEDS: ACETAMINOPHEN 500 MG TAB (TYLENOL) PO PRN ×2 (14:54→22:41)
[2020-07-01] MEDS: ENOXAPARIN 40 MG/0.4 ML (LOVENOX) SYR SC SCH (14:54)
[2020-07-01 16:00] VITALS: BP 151/78
--- NOTE | 2020-07-01 16:20 | Progress Note - Surgery ---
Subjective Time Seen by a Provider: 15:56 Subjective/Events-last exam Pt seen and examined, states she is doing better today. States Dr. Loo came by and "opened my foot". Review of Systems General: No Fatigue, No Malaise Pulmonary: No Dyspnea, No Cough Cardiovascular: No: Chest Pain, Palpitations Gastrointestinal: No: Nausea, Vomiting Musculoskeletal: foot pain Focused Exam Lactate Level 06/28/20 17:00: Lactic Acid Level 1.89 Time of Focused Exam: 13:15 Objective Exam Vital Signs Date Time Temp Pulse Resp B/P (MAP) Pulse Ox O2 Delivery O2 Flow Rate FiO2 07/01/20 08:00 94 Room Air 07/01/20 07:49 36.4 79 18 135/74 (94) 96 Room Air 07/01/20 06:52 93 Room Air 07/01/20 00:51 36.3 82 16 143/78 (99) 96 Room Air 06/30/20 20:00 Room Air 06/30/20 18:37 93 Room Air I & O 07/01/20 07:00 Intake Total 2940 ml Balance 2940 ml Capillary Refill : Less Than 3 Seconds General Appearance: No Apparent Distress, Obese Respiratory: Chest Non Tender, Lungs Clear, Normal Breath Sounds, No Accessory Muscle Use, No Respiratory Distress Cardiovascular: Regular Rate, Rhythm, No Murmur Peripheral Pulses: 2+ Radial Pulses (R), 2+ Radial Pulses (L) Gastrointestinal: non tender, soft, no organomegaly Extremity: Inflammation (Left foot), Swelling Neurologic/Psychiatric: Alert, Oriented x3, Normal Mood/Affect Skin: Erythema (Left foot) Results Lab Laboratory Tests 06/30/20 20:15: Glucometer 199H 07/01/20 06:17: Glucometer 152H 07/01/20 07:45: White Blood Count 9.3, Red Blood Count 4.33, Hemoglobin 12.4, Hematocrit 39, Mean Corpuscular Volume 90, Mean Corpuscular Hemoglobin 29, Mean Corpuscular H emoglobin Concent 32, Red Cell Distribution Width 12.8, Platelet Count 372, Mean Platelet Volume 9.5, Immature Granulocyte % (Auto) 1, Neutrophils (%) (Auto) 67, Lymphocytes (%) (Auto) 19, Monocytes (%) (Auto) 8, Eosinophils (%) (Auto) 5, Basophils (%) (Auto) 1, Neutrophils # (Auto) 6.2, Lymphocytes # (Auto) 1.7, Monocytes # (Auto) 0.7, Eosinophils # (Auto) 0.5H, Basophils # (Auto) 0.1, Immature Granulocyte # (Auto) 0.1, Sodium Level 140, Potassium Level 4.0, Chloride Level 107, Carbon Dioxide Level 21, Anion Gap 12, Blood Urea Nitrogen 13, Creatinine 0.95, Estimat Glomerular Filtration Rate 60, BUN/Creatinine Ratio 14, Glucose Level 183H, Calcium Level 8.9, Corrected Calcium 9.5, Total Bilirubin 0.3, Aspartate Amino Transf (AST/SGOT) 10, Alanine Aminotransferase (ALT/SGPT) 8, Alkaline Phosphatase 88, Total Protein 7.1, Albumin 3.3 07/01/20 11:33: Glucometer 213H 07/01/20 15:58: Glucometer 161H Microbiology 06/30/20 Gram Stain, Resulted Pending 06/30/20 Wound Culture - Preliminary, Resulted Staphylococcus aureus Corynebactoerium aurimucosum See Comments 06/28/20 Urine Culture - Final, Complete NO GROWTH 06/28/20 Blood Culture - Preliminary, Resulted No growth Assessment/Plan Assessment/Plan Assessment/Plan Left Foot Cellulitis/Abscess - will get culture DM Afib Obesity Plan is to continue IV ABX and monitor foot, will need to control DM; which will help with cellulitis. Her foot is draining more after I&D. I told her to elevate foot more than it dangles down. Will hold off on MRI for now and continue to monitor; if there is anything concerning will order to r/o osteomyelitis. CLAYTON OCAMPO DO July 01, 2020 16:20
[2020-07-01] MEDS: diphenhydrAMINE 25 MG TAB (BENADRYL) PO SCH (22:41)
[2020-07-01 23:49] VITALS: BP 170/81
--- NOTE | 2020-07-02 03:11 | OPERATIVE REPORT ---
DATE OF SERVICE: 07/01/2020 PREOPERATIVE DIAGNOSIS: Left foot cellulitis and abscess. POSTOPERATIVE DIAGNOSIS: Left foot cellulitis and abscess. PROCEDURE: Incision and drainage, left foot abscess. SURGEON: Ty Loo DO ANESTHESIA: Lidocaine 1%. ESTIMATED BLOOD LOSS: None. COMPLICATIONS: None. INDICATIONS: The patient is a 60-year-old female was admitted, who has a left foot abscess, more on the dorsal portion near the fifth toe. She understands risks and benefits of procedure and wished to proceed with procedure. Consent was signed in the chart. DESCRIPTION OF PROCEDURE: The patient was prepped and draped in sterile fashion at bedside. A 4 mL of 1% lidocaine was used to anesthetize the area. A 15 blade scalpel was used to make a small skin incision approximately 1 cm long into the area of fluctuance. Purulent material erupted; culture was obtained. All loculations were broken up. The wound was irrigated and then packed with iodoform quarter-inch gauze. The area was washed, and dried and sterile bandage was applied. The patient tolerated procedure well without any complications. RECOMMENDATIONS: The patient will continue with wound care and continue with current medical management. Job ID: [id number] DocumentID: [id number] Dictated Date: 07/01/2020 20:34:07 [employer] Date: 07/02/2020 03:10:09 Dictated By: TY LOO DO
[2020-07-02] MEDS: PIPERACILLIN/TAZO 4.5 GM/NS 100 ML IV SCH ×6 (04:00→18:00)
[2020-07-02 04:01] VITALS: BP 165/76
[2020-07-02 05:42] LABS: BASOPHILS # (AUTO) 0.1 10^3/uL (0.0-0.1); BASOPHILS % (AUTO) 1 % (0-10); EOSINOPHILS # (AUTO) 0.5 10^3/uL (0.0-0.3); EOSINOPHILS % (AUTO) 6 % (0-10); HEMATOCRIT 36 % (35-52); HEMOGLOBIN 11.6 g/dL (11.5-16.0); LYMPHOCYTES # (AUTO) 2.4 10^3/uL (1.0-4.0); LYMPHOCYTES % (AUTO) 29 % (12-44); MEAN CORPUSCULAR HEMOGLOBIN 29 pg (25-34); MEAN CORPUSCULAR HGB CONC 32 g/dL (32-36); MEAN CORPUSCULAR VOLUME 89 fL (80-99); MEAN PLATELET VOLUME 9.4 fL (9.0-12.2); MONOCYTES # (AUTO) 0.8 10^3/uL (0.0-1.0); MONOCYTES % (AUTO) 10 % (0-12); NEUTROPHILS # (AUTO) 4.4 10^3/uL (1.8-7.8); NEUTROPHILS % (AUTO) 53 % (42-75); PLATELET COUNT 366 10^3/uL (130-400); WHITE BLOOD COUNT 8.2 10^3/uL (4.3-11.0)
[2020-07-02 05:55] LABS: ALBUMIN 3.1 GM/DL (3.2-4.5)
[2020-07-02 05:56] LABS: CHLORIDE 106 MMOL/L (98-107); POTASSIUM 3.9 MMOL/L (3.6-5.0); SODIUM 139 MMOL/L (135-145)
[2020-07-02 05:57] LABS: CALCIUM 8.8 MG/DL (8.5-10.1)
[2020-07-02 05:58] LABS: GLUCOSE 139 MG/DL (70-105); TOTAL PROTEIN 6.6 GM/DL (6.4-8.2)
[2020-07-02 05:59] LABS: CARBON DIOXIDE 25 MMOL/L (21-32)
[2020-07-02 06:00] LABS: BILIRUBIN,TOTAL 0.2 MG/DL (0.1-1.0)
[2020-07-02 06:01] LABS: ALKALINE PHOSPHATASE 74 U/L (40-136)
[2020-07-02 06:02] LABS: CREATININE SERUM 0.85 MG/DL (0.60-1.30); GFR ESTIMATED > 60
[2020-07-02 06:03] LABS: BUN/CREATININE RATIO 14
[2020-07-02 06:04] LABS: ALANINE AMINOTRANSFERASE 11 U/L (0-55)
[2020-07-02] MEDS: inSUlin ASPART (NovoLOG) 1 UNIT/0.01 ML (CHARGE PER UNIT) SC SCH ×4 (06:13→20:46)
[2020-07-02] MEDS: ACETAMINOPHEN 500 MG TAB (TYLENOL) PO PRN ×2 (06:21→22:16)
--- NOTE | 2020-07-02 07:02 | Progress Note - Hospitalist ---
Subjective HPI/CC On Admission Date Seen by Provider: July 02, 2020 Time Seen by Provider: 09:00 This is a 60-year-old white female who presented to the emergency room yesterday with increased pain and swelling of her left foot. She had been started on antibiotics as an outpatient but it has begun to get worse. She does have a his tory of a previous amputation secondary to infection on the other foot. This morning she is awake and alert and feels like the foot is a little bit better and she is having less pain, swelling Subjective/Events-last exam Pt doing pretty well Denies any new issues Melia with wound care will change the dressing IV antibiotics tolerated Lovenox maintained for DVT prophylaxis HgbA1C is 7.5 PT and OT will be ordered Review of Systems General: Fatigue, Malaise Musculoskeletal: leg pain, foot pain Focused Exam Time of Focused Exam: 13:15 Objective Exam Vital Signs Vital Signs Date Time Temp Pulse Resp B/P (MAP) Pulse Ox O2 Delivery O2 Flow Rate FiO2 07/03/20 00:00 36.1 56 18 133/78 (96) 92 Room Air Capillary Refill : Less Than 3 Seconds General Appearance: No Apparent Distress, WD/WN, Chronically ill Respiratory: Lungs Clear Cardiovascular: Regular Rate, Rhythm Extremity: Pedal Edema, Swelling Neurologic/Psychiatric: Alert, Oriented x3 Results/Procedures Lab Laboratory Tests 07/02/20 05:22 Patient resulted labs reviewed. Imaging: Reviewed Imaging Report Assessment/Plan Assessment and Plan Assess & Plan/Chief Complaint Assessment: Left foot cellulitis with DM ulcer with drainage Prior CVA DM insulin requiring HTN HLP Smoker Plan: IV abx Dr Cinda Kruger Home meds 07/02/20: IV abx Dressing changes Pain control Home meds MIYA CASTILLO DO July 02, 2020 07:02
[2020-07-02 08:00] VITALS: BP 151/86
[2020-07-02] MEDS: PANTOPRAZOLE 40 MG (PROTONIX) TAB PO SCH (08:03)
[2020-07-02] MEDS: CLOPIDOGREL 75 MG (PLAVIX) TABLET PO SCH (08:03)
[2020-07-02] MEDS: buPROPion SR 150 MG (WELLBUTRIN SR) TAB PO SCH ×2 (08:04→18:00)
[2020-07-02] MEDS: PREGABALIN 100 MG (LYRICA) CAPSULE PO SCH ×2 (08:04→20:46)
[2020-07-02] MEDS: ASPIRIN E.C. 81 MG (ECOTRIN) TAB PO SCH (08:04)
[2020-07-02] MEDS ORDERED: TROUGH ORDER-PHARMACY XX ONE (10:00)
[2020-07-02] MEDS: ENOXAPARIN 40 MG/0.4 ML (LOVENOX) SYR SC SCH (10:57)
[2020-07-02] MEDS: VANCOMYCIN 1 GM/NS 250 ML IVPB IV SCH ×4 (10:57→22:16)
--- NOTE | 2020-07-02 13:52 | Occ Therapy Progress Note ---
Therapy Progress Note OT orders received and chart reviewed. OT visited with pt who states she is currently IND with all ADLs. Pt reports she is up independently in her room, able to take self to bathroom independently and she showered last night without assistance. Pt states she is at her PLOF and has no concerns with her ability to complete ADLs upon discharge. No skilled OT services indicated at this time due to pt being at PLOF and IND with ADLs. d/c from OT 1, visit [id number] SHAWNA DOWELL OT July 02, 2020 13:52
--- NOTE | 2020-07-02 14:32 | Physical Therapy Progress Note ---
Therapy Progress Note Patient declined PT intervention secondary to stating she is up independently with a cane. PT education on importance of increasing activity with patient voicing understanding and continuing to decline therapy intervention. 1 ref/DC ([id number]) GEORGE STEPHENS PT July 02, 2020 14:32
[2020-07-02 16:04] VITALS: BP 157/73
--- NOTE | 2020-07-02 22:13 | Progress Note - Surgery ---
Subjective Date Seen by a Provider: July 02, 2020 Time Seen by a Provider: 11:50 Subjective/Events-last exam Patient is feeling better. Less swelling less erythema in the left foot. Patient states minimal discomfort at this time. Has no other complaints at this time she denies any nausea vomiting fever sweats chills shortness of breath or chest pain. Focused Exam Time of Focused Exam: 13:15 Objective Exam Vital Signs Date Time Temp Pulse Resp B/P (MAP) Pulse Ox O2 Delivery O2 Flow Rate FiO2 07/02/20 16:04 36.2 78 20 157/73 (101) 95 Room Air 07/02/20 14:37 97 Room Air 07/02/20 08:00 Room Air 07/02/20 08:00 35.7 83 16 151/86 (107) 95 Room Air 07/02/20 04:01 36.5 78 18 165/76 (105) 93 Room Air 07/01/20 23:49 36.4 80 18 170/81 (110) 94 Room Air 07/01/20 22:21 93 Room Air I & O 07/02/20 07:00 Intake Total 2085 ml Output Total 700 ml Balance 1385 ml Capillary Refill : Less Than 3 Seconds General Appearance: No Apparent Distress, WD/WN, Chronically ill HEENT: PERRL/EOMI Neck: Non Tender, Supple Respiratory: Chest Non Tender, No Accessory Muscle Use, No Respiratory Distress Cardiovascular: Regular Rate, Rhythm, No JVD Peripheral Pulses: 2+ Radial Pulses (R), 2+ Radial Pulses (L) Gastrointestinal: non tender, soft, no organomegaly Extremity: Swelling (left ankle, less) Neurologic/Psychiatric: Alert, Oriented x3 Skin: Other (improved redness left ankle, less edema, minimal induration around incision) Results Lab Laboratory Tests 07/02/20 05:22: White Blood Count 8.2, Red Blood Count 4.07, Hemoglobin 11.6, Hematocrit 36, Mean Corpuscular Volume 89, Mean Corpuscular Hemoglobin 29, Mean Corpuscular Hemoglobin Concent 32, Red Cell Distribution Width 12.8, Platelet Count 366, Mean Platelet Volume 9.4, Immature Granulocyte % (Auto) 1, Neutrophils (%) (Auto) 53, Lymphocytes (%) (Auto) 29, Monocytes (%) (Auto) 10, Eosinophils (%) (Auto) 6, Basophils (%) (Auto) 1, Neutrophils # (Auto) 4.4, Lymphocytes # (Auto) 2.4, Monocytes # (Auto) 0.8, Eosinophils # (Auto) 0.5H, Basophils # (Auto) 0.1, Immature Granulocyte # (Auto) 0.1, Sodium Level 139, Potassium Level 3.9, Chloride Level 106, Carbon Dioxide Level 25, Anion Gap 8, Blood Urea Nitrogen 12, Creatinine 0.85, Estimat Glomerular Filtration Rate > 60, BUN/Creatinine Ratio 14, Glucose Level 139H, Calcium Level 8.8, Corrected Calcium 9.5, Total Bilirubin 0.2, Aspartate Amino Transf (AST/SGOT) 13, Alanine Aminotransferase (ALT/SGPT) 11, Alkaline Phosphatase 74, Total Protein 6.6, Albumin 3.1L 07/02/20 10:14: Vancomycin Level Trough 17.4 07/02/20 10:36: Glucometer 194H 07/02/20 15:52: Glucometer 166H 07/02/20 20:20: Glucometer 211H Microbiology 07/01/20 Gram Stain - Final, Resulted 07/01/20 Wound Culture - Preliminary, Resulted Staphylococcus aureus 06/28/20 Urine Culture - Final, Complete NO GROWTH 06/28/20 Blood Culture - Preliminary, Resulted No growth Assessment/Plan Assessment/Plan Assessment/Plan Left Foot Cellulitis/Abscess status post incision and drainage DM Afib Obesity Irrigate and pack daily with iodoform. Continue tight glucose control Continue wound care. Continue antibiotics TY SMITH DO July 02, 2020 22:13
[2020-07-02] MEDS: diphenhydrAMINE 25 MG TAB (BENADRYL) PO SCH (22:16)
[2020-07-03] VITALS: BP 133/78
[2020-07-03] MEDS: PIPERACILLIN/TAZO 4.5 GM/NS 100 ML IV SCH ×6 (03:13→18:12)
[2020-07-03 06:14] LABS: BASOPHILS # (AUTO) 0.1 10^3/uL (0.0-0.1); BASOPHILS % (AUTO) 1 % (0-10); EOSINOPHILS # (AUTO) 0.5 10^3/uL (0.0-0.3); EOSINOPHILS % (AUTO) 6 % (0-10); HEMATOCRIT 36 % (35-52); HEMOGLOBIN 11.7 g/dL (11.5-16.0); LYMPHOCYTES # (AUTO) 2.1 10^3/uL (1.0-4.0); LYMPHOCYTES % (AUTO) 26 % (12-44); MEAN CORPUSCULAR HEMOGLOBIN 29 pg (25-34); MEAN CORPUSCULAR HGB CONC 32 g/dL (32-36); MEAN CORPUSCULAR VOLUME 88 fL (80-99); MEAN PLATELET VOLUME 9.4 fL (9.0-12.2); MONOCYTES # (AUTO) 0.9 10^3/uL (0.0-1.0); MONOCYTES % (AUTO) 10 % (0-12); NEUTROPHILS # (AUTO) 4.8 10^3/uL (1.8-7.8); NEUTROPHILS % (AUTO) 57 % (42-75); PLATELET COUNT 384 10^3/uL (130-400); WHITE BLOOD COUNT 8.4 10^3/uL (4.3-11.0)
[2020-07-03 06:22] LABS: ALBUMIN 3.1 GM/DL (3.2-4.5); CHLORIDE 107 MMOL/L (98-107); POTASSIUM 3.8 MMOL/L (3.6-5.0); SODIUM 140 MMOL/L (135-145)
[2020-07-03 06:23] LABS: CALCIUM 8.9 MG/DL (8.5-10.1)
[2020-07-03 06:24] LABS: GLUCOSE 153 MG/DL (70-105)
[2020-07-03 06:25] LABS: TOTAL PROTEIN 6.6 GM/DL (6.4-8.2)
[2020-07-03 06:26] LABS: BILIRUBIN,TOTAL 0.2 MG/DL (0.1-1.0); CARBON DIOXIDE 25 MMOL/L (21-32)
[2020-07-03] MEDS: inSUlin ASPART (NovoLOG) 1 UNIT/0.01 ML (CHARGE PER UNIT) SC SCH ×4 (06:26→21:00)
[2020-07-03 06:28] LABS: ALKALINE PHOSPHATASE 75 U/L (40-136); CREATININE SERUM 0.84 MG/DL (0.60-1.30); GFR ESTIMATED > 60
[2020-07-03 06:29] LABS: BUN/CREATININE RATIO 17
[2020-07-03 06:31] LABS: ALANINE AMINOTRANSFERASE 12 U/L (0-55)
[2020-07-03 07:27] VITALS: BP 116/58
[2020-07-03] MEDS: PREGABALIN 100 MG (LYRICA) CAPSULE PO SCH ×2 (07:56→21:00)
[2020-07-03] MEDS: PANTOPRAZOLE 40 MG (PROTONIX) TAB PO SCH (07:57)
[2020-07-03] MEDS: buPROPion SR 150 MG (WELLBUTRIN SR) TAB PO SCH ×2 (07:57→17:41)
[2020-07-03] MEDS: ASPIRIN E.C. 81 MG (ECOTRIN) TAB PO SCH (07:57)
[2020-07-03] MEDS: CLOPIDOGREL 75 MG (PLAVIX) TABLET PO SCH (07:57)
--- NOTE | 2020-07-03 09:25 | Progress Note - Hospitalist ---
Subjective HPI/CC On Admission Date Seen by Provider: July 03, 2020 Time Seen by Provider: 09:30 This is a 60-year-old white female who presented to the emergency room yesterday with increased pain and swelling of her left foot. She had been started on antibiotics as an outpatient but it has begun to get worse. She does have a his tory of a previous amputation secondary to infection on the other foot. This morning she is awake and alert and feels like the foot is a little bit better and she is having less pain, swelling Subjective/Events-last exam Pt doing really well Staph is MSSA so will discontinue the Vancomycin Zosyn will be maintained Drainage from the wound is significant Dressing changes maintained Review of Systems Musculoskeletal: foot pain Focused Exam Time of Focused Exam: 13:15 Objective Exam Vital Signs Vital Signs Date Time Temp Pulse Resp B/P (MAP) Pulse Ox O2 Delivery O2 Flow Rate FiO2 07/03/20 23:17 36.0 79 18 143/76 (98) 97 Room Air Capillary Refill : Less Than 3 Seconds General Appearance: No Apparent Distress, WD/WN, Chronically ill Respiratory: Lungs Clear Cardiovascular: Regular Rate, Rhythm Extremity: Swelling (left foot) Neurologic/Psychiatric: Alert, Oriented x3, No Motor/Sensory Deficits, Normal Mood/Affect Results/Procedures Lab Laboratory Tests 07/03/20 05:36 Patient resulted labs reviewed. Imaging: Reviewed Imaging Report Assessment/Plan Assessment and Plan Assess & Plan/Chief Complaint Assessment: Left foot cellulitis with DM ulcer with drainage Prior CVA DM insulin requiring HTN HLP Smoker Plan: IV abx Dr Cinda Kruger Home meds 07/02/20: IV abx Dressing changes Pain control Home meds 07/03/20: IV abx DC Vanc since MSSA MIYA CASTILLO DO July 03, 2020 09:25
[2020-07-03] MEDS: VANCOMYCIN 1 GM/NS 250 ML IVPB IV SCH ×2 (10:00)
[2020-07-03] MEDS: ENOXAPARIN 40 MG/0.4 ML (LOVENOX) SYR SC SCH (10:00)
[2020-07-03 15:52] VITALS: BP 118/84
--- NOTE | 2020-07-03 21:40 | Progress Note - Surgery ---
Subjective Date Seen by a Provider: July 03, 2020 Time Seen by a Provider: 07:58 Subjective/Events-last exam Patient states left foot is feeling well. She has no new complaints. Has little bit of drainage from the left foot wound. She denies any fever sweats chills shortness of breath or chest pain. Focused Exam Time of Focused Exam: 13:15 Objective Exam Vital Signs Date Time Temp Pulse Resp B/P (MAP) Pulse Ox O2 Delivery O2 Flow Rate FiO2 07/03/20 18:16 95 Room Air 07/03/20 15:52 35.6 81 16 118/84 (95) 95 Room Air 07/03/20 08:00 97 Room Air 07/03/20 07:27 36.6 72 18 116/58 (77) 97 Room Air 07/03/20 00:00 36.1 56 18 133/78 (96) 92 Room Air I & O 07/03/20 07:00 Intake Total 1622 ml Output Total 550 ml Balance 1072 ml Capillary Refill : Less Than 3 Seconds General Appearance: No Apparent Distress, WD/WN, Chronically ill HEENT: PERRL/EOMI Neck: Non Tender, Supple Respiratory: Lungs Clear Cardiovascular: Regular Rate, Rhythm Peripheral Pulses: 2+ Radial Pulses (R), 2+ Radial Pulses (L) Gastrointestinal: non tender, soft, no organomegaly Extremity: Pedal Edema, Swelling (Less) Neurologic/Psychiatric: Alert, Oriented x3 Skin: Other (improved redness left ankle, less edema, minimal induration around incision) Lymphatic: No Adenopathy Results Lab Laboratory Tests 07/02/20 23:55: Glucometer 145H 07/03/20 05:36: White Blood Count 8.4, Red Blood Count 4.10, Hemoglobin 11.7, Hematocrit 36, Mean Corpuscular Volume 88, Mean Corpuscular Hemoglobin 29, Mean Corpuscular Hemoglobin Concent 32, Red Cell Distribution Width 12.9, Platelet Count 384, Mean Platelet Volume 9.4, Immature Granulocyte % (Auto) 1, Neutrophils (%) (Auto) 57, Lymphocytes (%) (Auto) 26, Monocytes (%) (Auto) 10, Eosinophils (%) (Auto) 6, Basophils (%) (Auto) 1, Neutrophils # (Auto) 4.8, Lymphocytes # (Auto) 2.1, Monocytes # (Auto) 0.9, Eosinophils # (Auto) 0.5H, Basophils # (Auto) 0.1, Immature Granulocyte # (Auto) 0.1, Sodium Level 140, Potassium Level 3.8, Chloride Level 107, Carbon Dioxide Level 25, Anion Gap 8, Blood Urea Nitrogen 14, Creatinine 0.84, Estimat Glomerular Filtration Rate > 60, BUN/Creatinine Ratio 17, Glucose Level 153H, Calcium Level 8.9, Corrected Calcium 9.6, Total Bilirubin 0.2, Aspartate Amino Transf (AST/SGOT) 16, Alanine Aminotransferase (ALT/SGPT) 12, Alkaline Phosphatase 75, Total Protein 6.6, Albumin 3.1L 07/03/20 11:32: Glucometer 261H 07/03/20 15:56: Glucometer 129H 07/03/20 20:54: Glucometer 178H Microbiology 07/01/20 Gram Stain - Final, Resulted 07/01/20 Wound Culture - Preliminary, Resulted Staphylococcus aureus 06/28/20 Urine Culture - Final, Complete NO GROWTH 06/28/20 Blood Culture - Final, Complete No growth Assessment/Plan Assessment/Plan Assessment/Plan Left Foot Cellulitis/Abscess status post incision and drainage DM Afib Obesity Irrigate and pack daily with iodoform. Continue tight glucose control Continue wound care. Continue antibiotics TY SMITH DO July 03, 2020 21:40
[2020-07-03] MEDS: diphenhydrAMINE 25 MG TAB (BENADRYL) PO SCH (22:14)
[2020-07-03] MEDS: ACETAMINOPHEN 500 MG TAB (TYLENOL) PO PRN (22:14)
[2020-07-03 23:17] VITALS: BP 143/76
[2020-07-04] MEDS: PIPERACILLIN/TAZO 4.5 GM/NS 100 ML IV SCH ×4 (03:04→10:58)
[2020-07-04 05:39] LABS: BASOPHILS # (AUTO) 0.1 10^3/uL (0.0-0.1); BASOPHILS % (AUTO) 1 % (0-10); EOSINOPHILS # (AUTO) 0.4 10^3/uL (0.0-0.3); EOSINOPHILS % (AUTO) 5 % (0-10); HEMATOCRIT 36 % (35-52); HEMOGLOBIN 11.8 g/dL (11.5-16.0); LYMPHOCYTES # (AUTO) 2.3 10^3/uL (1.0-4.0); LYMPHOCYTES % (AUTO) 24 % (12-44); MEAN CORPUSCULAR HEMOGLOBIN 29 pg (25-34); MEAN CORPUSCULAR HGB CONC 33 g/dL (32-36); MEAN CORPUSCULAR VOLUME 88 fL (80-99); MEAN PLATELET VOLUME 9.4 fL (9.0-12.2); MONOCYTES # (AUTO) 0.8 10^3/uL (0.0-1.0); MONOCYTES % (AUTO) 8 % (0-12); NEUTROPHILS # (AUTO) 5.8 10^3/uL (1.8-7.8); NEUTROPHILS % (AUTO) 62 % (42-75); PLATELET COUNT 416 10^3/uL (130-400); WHITE BLOOD COUNT 9.4 10^3/uL (4.3-11.0)
[2020-07-04 05:48] LABS: ALBUMIN 3.2 GM/DL (3.2-4.5); POTASSIUM 4.1 MMOL/L (3.6-5.0)
[2020-07-04 05:49] LABS: CALCIUM 8.9 MG/DL (8.5-10.1)
[2020-07-04 05:50] LABS: TOTAL PROTEIN 6.8 GM/DL (6.4-8.2)
[2020-07-04 05:52] LABS: BILIRUBIN,TOTAL 0.2 MG/DL (0.1-1.0)
[2020-07-04 05:54] LABS: CREATININE SERUM 1.04 MG/DL (0.60-1.30)
[2020-07-04] MEDS: inSUlin ASPART (NovoLOG) 1 UNIT/0.01 ML (CHARGE PER UNIT) SC SCH ×2 (06:00→10:58)
[2020-07-04 07:29] VITALS: BP 137/73
[2020-07-04] MEDS: buPROPion SR 150 MG (WELLBUTRIN SR) TAB PO SCH (08:25)
[2020-07-04] MEDS: CLOPIDOGREL 75 MG (PLAVIX) TABLET PO SCH (08:25)
[2020-07-04] MEDS: ASPIRIN E.C. 81 MG (ECOTRIN) TAB PO SCH (08:25)
[2020-07-04] MEDS: PREGABALIN 100 MG (LYRICA) CAPSULE PO SCH (08:26)
[2020-07-04] MEDS: PANTOPRAZOLE 40 MG (PROTONIX) TAB PO SCH (08:26)
[2020-07-04] MEDS: ENOXAPARIN 40 MG/0.4 ML (LOVENOX) SYR SC SCH (10:58)
[2020-07-04] MEDS ORDERED: FLUC150T2 PO (12:31)
[2020-07-04] MEDS ORDERED: AMOX500T2 PO (12:31)
--- NOTE | 2020-07-04 12:32 | History & Physical-Hospitalist ---
History of Present Illness HPI/Chief Complaint This is a 60-year-old white female who presented to the emergency room yesterday with increased pain and swelling of her left foot. She had been started on antibiotics as an outpatient but it has begun to get worse. She does have a history of a previous amputation secondary to infection on the other foot. This morning she is awake and alert and feels like the foot is a little bit better and she is having less pain, swelling Date Seen 07/04/20 Attending Physician Haven Castillo Holly R MD Referring Physician Date of Admission June 28, 2020 at 13:43 Home Medications & Allergies Home Medications Reviewed patient Home Medication Reconciliation performed by pharmacy medication reconciliations vocational rehabilitation technician and/or nursing. Patients Allergies have been reviewed. Allergies Allergies Coded Allergies cefdinir (Verified Adverse Reaction, Mild, NAUSEA, yeast infection, 11/08/19) Cephalosporins (Verified Adverse Reaction, Unknown, yeast infections, 11/08/19) Past Medical/Social/Family Hx Patient Social History Marrital Status: single Tobacco Use?: Yes Tobacco type used: Cigarettes Smoking Status: Former Smoker Smokeless Tobacco Frequency: Former User Use of E-Cig and/or Vaping dev: No Substance use?: No Alcohol Use?: Yes Alcohol Frequency: Rarely Pt stated abuse/neglect: No Immunizations Up To Date Influenza Vaccine Up-to-Date: Yes; Up-to-Date First/Initial COVID19 Vaccinat: may 01, 2020 Second COVID19 Vaccination Shane: may 30, 2020 Tetanus Booster (TDap): Unknown Hepatitis A: No Hepatitis B: No TB Skin Test: None Date of Pneumonia Vaccine: Jul 30, 2009 Current Status status: No status: No Advance Directives: No Advance Directive Location: Unable to obtain copy Communicates: Verbally Primary Language: Gabonese Preferred Spoken Language: Gabonese Is interpretation needed?: No Family Medical History Family Hx: ADDITIONAL PAST MEDICAL/SURGICAL HISTORY: -RIGHT GREAT TOE AMPUTATION 08/02/2019 DUE TO OSTEOMYELITIS-DONE BY DR. SMITH -PERIPHERAL ANGIOGRAM 08/03/[address] GARRISON:FINDINGS: No significant disease in the distal abdominal aorta. Nonselective angiogram of the renal arteries showed bilateral patent renal arteries. Patent bilateral common iliac artery, external iliac artery, common femoral artery. Mild proximal left SFA disease. Patent left popliteal artery and three-vessel runoff below the knee. Patent right SFA, popliteal artery and three-vessel runoff below the knee. CONCLUSION: Minimal PAD. Continue secondary prevention measures. -LOOP RECORDER -CARDIAC CATH WITH STENT TO FIRST DIAGONAL 2013 -KIDNEY AND BLADDER SURGERY CHILD -04/10/20--FLEXIBLE SIGMOIDOSCOPY BY DR. SMITH - -APPENDECTOMY -CHOLECYSTECTOMY Physical Exam Physical Exam Vital Signs Vital Signs - First Documented 06/28/20 12:24 Temp 36.3 Pulse 98 Resp 20 B/P (MAP) 166/104 (124) Pulse Ox 98 O2 Delivery Room Air Capillary Refill : Less Than 3 Seconds Height, Weight, BMI Height: 5'8.00" Weight: 166lbs. 0.0oz. [id number]; 31.48 BMI Method:Stated Results Results/Procedures Labs Laboratory Tests 07/03/20 05:36 07/04/20 05:15 Patient resulted labs reviewed. Imaging: Reviewed Imaging Report Assessment/Plan Admission Diagnosis Sepsis secondary to cellulitis with elevated white count lactic acid and tachycardia Cellulitis surgical consult appreciated. no evidence of osteomyelitis at this time however it may require an MRI for further evaluation-we will check a sed rate to follow day #2 piperacillin and vancomycin Type 2 diabetes on insulin Previous amputation Coronary artery disease Tobaccoism curtailed History of colitis Hypertension Hyperlipidemia Assessment and Plan Assessment: Left foot cellulitis with DM ulcer with drainage Prior CVA DM insulin requiring HTN HLP Smoker Plan: IV abx Dr Smith Lovenox Home meds 07/02/20: IV abx Dressing changes Pain control Home meds 07/03/20: IV abx DC Vanc since MSSA HAVEN CASTILLO DO July 04, 2020 12:32
--- NOTE | 2020-07-04 12:33 | Discharge Summary ---
Discharge Summary Hospital Course Was the Problem List Reviewed?: Yes Problems/Dx: (1) Sepsis Status: Acute Qualifiers: (2) Cellulitis of left foot Status: Acute (3) Diabetes Status: Chronic Qualifiers: (4) CAD (coronary artery disease) Status: Chronic (5) HTN (hypertension) Status: Chronic (6) History of colitis Status: Resolved (7) CVA (cerebral vascular accident) Status: Resolved Hospital Course Date of Admission: June 28, 2020 at 13:43 Admission Diagnosis : Family Physician/Provider: Yanira Johnson MD Date of Discharge: 07/04/20 Discharge Diagnosis: sepsis, left foot cellulitis Hospital Course: Hospital course: Pt had a lengthy hospital course, she was admitted for left foot cellulitis with diabetic ulcer that was draining, culture was obtained, and she was placed on broad-spectrum antibiotics of Zosyn and Vanc, MSSA was revealed, Pt was narrowed down to Zosyn. Pt overall did very well, restarted all home medication including insulin and Pt was discharged on Amoxicillin for four additional days with close follow-up with wound care. Labs and Pending Lab Test: Laboratory Tests 07/03/20 15:56: Glucometer 129H 07/03/20 20:54: Glucometer 178H 07/04/20 05:15: White Blood Count 9.4, Red Blood Count 4.11, Hemoglobin 11.8, Hematocrit 36, Mean Corpuscular Volume 88, Mean Corpuscular Hemoglobin 29, Mean Corpuscular Hemoglobin Concent 33, Red Cell Distribution Width 13.2, Platelet Count 416H, Mean Platelet Volume 9.4, Immature Granulocyte % (Auto) 1, Neutrophils (%) (Auto) 62, Lymphocytes (%) (Auto) 24, Monocytes (%) (Auto) 8, Eosinophils (%) (Auto) 5, Basophils (%) (Auto) 1, Neutrophils # (Auto) 5.8, Lymphocytes # (Auto) 2.3, Monocytes # (Auto) 0.8, Eosinophils # (Auto) 0.4H, Basophils # (Auto) 0.1, Immature Granulocyte # (Auto) 0.1, Sodium Level 141, Potassium Level 4.1, Chloride Level 107, Carbon Dioxide Level 26, Anion Gap 8, Blood Urea Nitrogen 16, Creatinine 1.04, Estimat Glomerular Filtration Rate 54, BUN/Creatinine Ratio 15, Glucose Level 147H, Calcium Level 8.9, Corrected Calcium 9.5, Total Bilirubin 0.2, Aspartate Amino Transf (AST/SGOT) 13, Alanine Aminotransferase (ALT/SGPT) 12, Alkaline Phosphatase 70, Total Protein 6.8, Albumin 3.2 07/04/20 10:50: Glucometer 240H Microbiology 07/01/20 Gram Stain - Final, Complete 07/01/20 Wound Culture - Final, Complete Staphylococcus aureus 06/28/20 Urine Culture - Final, Complete NO GROWTH 06/28/20 Blood Culture - Final, Complete No growth Home Meds Active Amoxicillin 500 Mg Tablet 500 Mg PO TID Fluconazole 150 Mg Tablet 150 Mg PO Q72H FILLED 06-26-2020 #2 Reported Doxycycline Hyclate 100 Mg Capsule 100 Mg PO BID FILLED 06-26-2020 #20/ DAY SUPPLY Tylenol 8 Hour (Acetaminophen) 650 Mg Tablet.er 650-1,300 Mg PO BID PRN Bydureon Bcise (Exenatide Microspheres) 2 Mg/0.85 Ml Auto.injct 2 Mg SQ TUE Metformin HCl ER (Metformin HCl) 500 Mg Tab.er.24 1,000 Mg PO DAILY Metoprolol Succinate 25 Mg Tab.er.24h 25 Mg PO DAILY Protonix (Pantoprazole Sodium) 40 Mg Tablet.dr 40 Mg PO DAILY Levemir Flextouch (Insulin Detemir) 100 Unit/1 Ml Insuln.pen 25 Unit SQ HS Novolog Flexpen (Insulin Aspart) 300 Units/3 Ml Solution 15 Units SQ AC Pregabalin 100 Mg Capsule 100 Mg PO BID Plavix (Clopidogrel Bisulfate) 75 Mg Tablet 75 Mg PO DAILY Bupropion Xl (Bupropion HCl) 300 Mg Tab.er.24h 300 Mg PO DAILY LAST FILLED 01-29-2020 #90 Aspirin EC (Aspirin) 81 Mg Tablet. 81 Mg PO DAILY Assessment/Pt Instructions [facility] 1 week Discharge Physical Examination Vital Signs Vital Signs Date Time Temp Pulse Resp B/P (MAP) Pulse Ox O2 Delivery O2 Flow Rate FiO2 07/04/20 08:00 Room Air 07/04/20 07:29 36.0 82 16 137/73 (94) 96 General Appearance: No Apparent Distress, WD/WN Respiratory: Lungs Clear Cardiovascular: Regular Rate, Rhythm Allergies: Coded Allergies: cefdinir (Verified Adverse Reaction, Mild, NAUSEA, yeast infection, 11/08/19) Cephalosporins (Verified Adverse Reaction, Unknown, yeast infections, 11/08/19) Discharge Summary Date of Admission June 28, 2020 at 13:43 Date of Discharge Discharge Date: July 04, 2020 Admission Diagnosis Sepsis secondary to cellulitis with elevated white count lactic acid and tachycardia Cellulitis surgical consult appreciated. no evidence of osteomyelitis at this time however it may require an MRI for further evaluation-we will check a sed rate to follow day #2 piperacillin and vancomycin Type 2 diabetes on insulin Previous amputation Coronary artery disease Tobaccoism curtailed History of colitis Hypertension Hyperlipidemia Discharge Diagnosis Assessment: Left foot cellulitis with DM ulcer with drainage Prior CVA DM insulin requiring HTN HLP Smoker Plan: IV abx Dr Loo Lovenox Home meds 07/02/20: IV abx Dressing changes Pain control Home meds 07/03/20: IV abx DC Vanc since MSSA (1) Sepsis Status: Acute Qualifiers: (2) Cellulitis of left foot Status: Acute (3) Diabetes Status: Chronic Qualifiers: (4) CAD (coronary artery disease) Status: Chronic (5) HTN (hypertension) Status: Chronic (6) History of colitis Status: Resolved (7) CVA (cerebral vascular accident) Status: Resolved MIYA CASTILLO DO July 04, 2020 12:33
--- NOTE | 2020-07-04 16:42 | Progress Note - Surgery ---
Subjective Date Seen by a Provider: July 04, 2020 Time Seen by a Provider: 11:25 Subjective/Events-last exam Feeling well. Feels foot feeling better. No new complaints. Tolerating dressing changes. Denies n/v fever sweats chills shortness of breath or chest pain. Focused Exam Time of Focused Exam: 13:15 Objective Exam Vital Signs Date Time Temp Pulse Resp B/P (MAP) Pulse Ox O2 Delivery O2 Flow Rate FiO2 07/04/20 15:31 07/04/20 08:00 Room Air 07/04/20 07:29 36.0 82 16 137/73 (94) 96 Room Air 07/03/20 23:17 36.0 79 18 143/76 (98) 97 Room Air 07/03/20 21:00 Room Air 07/03/20 18:16 95 Room Air I & O 07/04/20 07:00 Intake Total 2170 ml Balance 2170 ml Capillary Refill : Less Than 3 Seconds General Appearance: No Apparent Distress, WD/WN, Chronically ill HEENT: PERRL/EOMI Neck: Non Tender, Supple Respiratory: Chest Non Tender, No Accessory Muscle Use, No Respiratory Distress Cardiovascular: Regular Rate, Rhythm, No JVD Peripheral Pulses: 2+ Radial Pulses (R), 2+ Radial Pulses (L) Gastrointestinal: non tender, soft, no organomegaly Extremity: Swelling (left foot minimal, erythema better) Neurologic/Psychiatric: Alert, Oriented x3, No Motor/Sensory Deficits, Normal Mood/Affect Skin: Other (improved redness left ankle, less edema, minimal induration around incision) Lymphatic: No Adenopathy Results Lab Laboratory Tests 07/03/20 20:54: Glucometer 178H 07/04/20 05:15: White Blood Count 9.4, Red Blood Count 4.11, Hemoglobin 11.8, Hematocrit 36, Mean Corpuscular Volume 88, Mean Corpuscular Hemoglobin 29, Mean Corpuscular Hemoglobin Concent 33, Red Cell Distribution Width 13.2, Platelet Count 416H, Mean Platelet Volume 9.4, Immature Granulocyte % (Auto) 1, Neutrophils (%) (Auto) 62, Lymphocytes (%) (Auto) 24, Monocytes (%) (Auto) 8, Eosinophils (%) (Auto) 5, Basophils (%) (Auto) 1, Neutrophils # (Auto) 5.8, Lymphocytes # (Auto) 2.3, Monocytes # (Auto) 0.8, Eosinophils # (Auto) 0.4H, Basophils # (Auto) 0.1, Immature Granulocyte # (Auto) 0.1, Sodium Level 141, Potassium Level 4.1, Chloride Level 107, Carbon Dioxide Level 26, Anion Gap 8, Blood Urea Nitrogen 16, Creatinine 1.04, Estimat Glomerular Filtration Rate 54, BUN/Creatinine Ratio 15, Glucose Level 147H, Calcium Level 8.9, Corrected Calcium 9.5, Total Bilirubin 0.2, Aspartate Amino Transf (AST/SGOT) 13, Alanine Aminotransferase (ALT/SGPT) 12, Alkaline Phosphatase 70, Total Protein 6.8, Albumin 3.2 07/04/20 10:50: Glucometer 240H Microbiology 07/01/20 Gram Stain - Final, Complete 07/01/20 Wound Culture - Final, Complete Staphylococcus aureus 06/28/20 Urine Culture - Final, Complete NO GROWTH 06/28/20 Blood Culture - Final, Complete No growth Assessment/Plan Assessment/Plan Assessment/Plan Left Foot Cellulitis/Abscess status post incision and drainage DM Afib Obesity Irrigate and pack daily with iodoform. Continue tight glucose control Continue wound care. Continue antibiotics Patient wound like to set up with wound care outpatient TY SMITH DO July 04, 2020 16:41
== END 2020-07-04 15:32 | disposition home or self-care (01) | DRG 854 ==
LOC: EDUNIT# 12:08 → ER 12:10 → 4TH 13:43
PROVIDERS: ADMIT Internal Medicine; ATTEND Internal Medicine
PROC: 0J9R0ZZ Drainage of Left Foot Subcutaneous Tissue and Fascia, Open Approach (ICD-10-PCS; principal; 2020-07-01)
DX: A41.9 Sepsis, unspecified organism (principal); L03.116 Cellulitis of left lower limb; L97.429 Non-pressure chronic ulcer of left heel and midfoot with unspecified severity; I69.354 Hemiplegia and hemiparesis following cerebral infarction affecting left non-dominant side; E11.621 Type 2 diabetes mellitus with foot ulcer; E11.51 Type 2 diabetes mellitus with diabetic peripheral angiopathy without gangrene; I70.202 Unspecified atherosclerosis of native arteries of extremities, left leg; E11.40 Type 2 diabetes mellitus with diabetic neuropathy, unspecified; I25.10 Atherosclerotic heart disease of native coronary artery without angina pectoris; I10 Essential (primary) hypertension; E66.9 Obesity, unspecified; Z68.31 Body mass index [BMI] 31.0-31.9, adult; K21.9 Gastro-esophageal reflux disease without esophagitis; F41.9 Anxiety disorder, unspecified; F32.9 Major depressive disorder, single episode, unspecified; B95.61 Methicillin susceptible Staphylococcus aureus infection as the cause of diseases classified elsewhere; Z89.411 Acquired absence of right great toe; Z79.4 Long term (current) use of insulin; Z87.891 Personal history of nicotine dependence; Z95.5 Presence of coronary angioplasty implant and graft; Z79.02 Long term (current) use of antithrombotics/antiplatelets; Z79.82 Long term (current) use of aspirin; Z88.1 Allergy status to other antibiotic agents; Z83.3 Family history of diabetes mellitus; Z82.49 Family history of ischemic heart disease and other diseases of the circulatory system
CPT/HCPCS: 36415; 71045; 73630; 73701; 76881; 80048; 80053; 80202; 81000; 82947; 83036; 83605; 85007; 85025; 85027; 85610; 85730; 86141; 87040; 87070; 87077; 87088; 87186; 87205; 94760; 96361; 96365; 96372; 96375

== ENCOUNTER → 2020-07-05 | Outpatient (CLI) | payer OTHER ==
[~2020-07-05] MED LIST changes: +ACET-2840 PO; +AMOX500T2 PO; +DOXY100C2 PO; +EXEN2AUT SQ; +FLUC150T2 PO; +METF-478 PO
== END ==
LOC: WOUNDCARE 13:02
PROVIDERS: ATTEND Surgery
DX: M65.072 Abscess of tendon sheath, left ankle and foot (principal); E11.621 Type 2 diabetes mellitus with foot ulcer; E11.42 Type 2 diabetes mellitus with diabetic polyneuropathy; L97.523 Non-pressure chronic ulcer of other part of left foot with necrosis of muscle; K50.019 Crohn's disease of small intestine with unspecified complications; E11.52 Type 2 diabetes mellitus with diabetic peripheral angiopathy with gangrene
CPT/HCPCS: 11043; A6266; G0463

== ENCOUNTER → 2020-07-09 | Outpatient (CLI) | payer OTHER | LOC: WOUNDCARE 13:01 | PROVIDERS: ATTEND Surgery | DX: M65.072 Abscess of tendon sheath, left ankle and foot (principal); E11.621 Type 2 diabetes mellitus with foot ulcer; E11.42 Type 2 diabetes mellitus with diabetic polyneuropathy; L97.523 Non-pressure chronic ulcer of other part of left foot with necrosis of muscle; K50.019 Crohn's disease of small intestine with unspecified complications; E11.52 Type 2 diabetes mellitus with diabetic peripheral angiopathy with gangrene | CPT/HCPCS: 11043; G0463 ==

== ENCOUNTER → 2020-07-16 | Outpatient (CLI) | payer OTHER | LOC: WOUNDCARE 12:22 | PROVIDERS: ATTEND Surgery | DX: M65.072 Abscess of tendon sheath, left ankle and foot (principal); I96 Gangrene, not elsewhere classified; E11.621 Type 2 diabetes mellitus with foot ulcer; E11.42 Type 2 diabetes mellitus with diabetic polyneuropathy; L97.223 Non-pressure chronic ulcer of left calf with necrosis of muscle; K50.019 Crohn's disease of small intestine with unspecified complications | CPT/HCPCS: 11043; G0463 ==

== ENCOUNTER → 2020-07-26 | Outpatient (CLI) | payer SELFPAY | LOC: WOUNDCARE 10:04 | PROVIDERS: ATTEND Orthopaedic Surgery Hand Surgery | DX: M65.072 Abscess of tendon sheath, left ankle and foot (principal); I96 Gangrene, not elsewhere classified; E11.621 Type 2 diabetes mellitus with foot ulcer; E11.42 Type 2 diabetes mellitus with diabetic polyneuropathy; L97.523 Non-pressure chronic ulcer of other part of left foot with necrosis of muscle; K50.019 Crohn's disease of small intestine with unspecified complications; L97.522 Non-pressure chronic ulcer of other part of left foot with fat layer exposed | CPT/HCPCS: 11042; G0463 ==

== ENCOUNTER → 2020-07-31 | Outpatient (CLI) | payer SELFPAY | LOC: WOUNDCARE 08:10 | PROVIDERS: ATTEND Surgery | DX: M65.072 Abscess of tendon sheath, left ankle and foot (principal); E11.621 Type 2 diabetes mellitus with foot ulcer; E11.42 Type 2 diabetes mellitus with diabetic polyneuropathy; L97.522 Non-pressure chronic ulcer of other part of left foot with fat layer exposed; K50.019 Crohn's disease of small intestine with unspecified complications; E11.52 Type 2 diabetes mellitus with diabetic peripheral angiopathy with gangrene | CPT/HCPCS: 11042; G0463 ==

== ENCOUNTER → 2020-08-07 | Outpatient (CLI) | payer SELFPAY ==
[~2020-08-07] MED LIST changes: +DOXY-311 PO; -DOXY100C42 PO
== END ==
LOC: WOUNDCARE 08:06
PROVIDERS: ATTEND Surgery
DX: E11.621 Type 2 diabetes mellitus with foot ulcer (principal); I96 Gangrene, not elsewhere classified; E11.42 Type 2 diabetes mellitus with diabetic polyneuropathy; L97.523 Non-pressure chronic ulcer of other part of left foot with necrosis of muscle; L97.522 Non-pressure chronic ulcer of other part of left foot with fat layer exposed; M65.072 Abscess of tendon sheath, left ankle and foot; K50.019 Crohn's disease of small intestine with unspecified complications
CPT/HCPCS: 11042; 11043; A6260; G0463

== ENCOUNTER → 2020-08-14 | Outpatient (CLI) | payer OTHER | LOC: WOUNDCARE 08:04 | PROVIDERS: ATTEND Surgery | DX: E11.621 Type 2 diabetes mellitus with foot ulcer (principal); E11.42 Type 2 diabetes mellitus with diabetic polyneuropathy; L97.523 Non-pressure chronic ulcer of other part of left foot with necrosis of muscle; M65.072 Abscess of tendon sheath, left ankle and foot; K50.019 Crohn's disease of small intestine with unspecified complications; E11.52 Type 2 diabetes mellitus with diabetic peripheral angiopathy with gangrene | CPT/HCPCS: 11043; A6454; G0463 ==

== ENCOUNTER → 2020-08-16 | Outpatient (CLI) | payer OTHER | LOC: WOUNDCARE 08:15 | PROVIDERS: ATTEND Surgery | DX: E11.621 Type 2 diabetes mellitus with foot ulcer (principal); I10 Essential (primary) hypertension; I25.10 Atherosclerotic heart disease of native coronary artery without angina pectoris; E11.40 Type 2 diabetes mellitus with diabetic neuropathy, unspecified | CPT/HCPCS: A6454; G0463; 99212 ==

== ENCOUNTER → 2020-08-21 | Outpatient (CLI) | payer OTHER | LOC: WOUNDCARE 08:02 | PROVIDERS: ATTEND Surgery | DX: E11.621 Type 2 diabetes mellitus with foot ulcer (principal); I96 Gangrene, not elsewhere classified; E11.42 Type 2 diabetes mellitus with diabetic polyneuropathy; L97.523 Non-pressure chronic ulcer of other part of left foot with necrosis of muscle; M65.072 Abscess of tendon sheath, left ankle and foot; K50.019 Crohn's disease of small intestine with unspecified complications | CPT/HCPCS: 11043; A6197; G0463 ==

== ENCOUNTER → 2020-08-21 | Outpatient (CLI) | payer OTHER | LOC: LAB 09:17 | PROVIDERS: ATTEND Surgery | DX: E11.621 Type 2 diabetes mellitus with foot ulcer (principal); E11.42 Type 2 diabetes mellitus with diabetic polyneuropathy; L97.523 Non-pressure chronic ulcer of other part of left foot with necrosis of muscle; M65.072 Abscess of tendon sheath, left ankle and foot; K50.019 Crohn's disease of small intestine with unspecified complications; I70.245 Atherosclerosis of native arteries of left leg with ulceration of other part of foot | CPT/HCPCS: 36415; 85652; 86141 ==

== ENCOUNTER → 2020-08-23 | Outpatient (CLI) | payer OTHER | LOC: WOUNDCARE 08:07 | PROVIDERS: ATTEND Surgery | DX: E11.621 Type 2 diabetes mellitus with foot ulcer (principal); I25.10 Atherosclerotic heart disease of native coronary artery without angina pectoris; I10 Essential (primary) hypertension | CPT/HCPCS: A6454; G0463; 99213 ==

== ENCOUNTER → 2020-08-28 | Outpatient (CLI) | payer OTHER | LOC: WOUNDCARE 10:50 | PROVIDERS: ATTEND Surgery | DX: E11.621 Type 2 diabetes mellitus with foot ulcer (principal); I96 Gangrene, not elsewhere classified; E11.42 Type 2 diabetes mellitus with diabetic polyneuropathy; L97.523 Non-pressure chronic ulcer of other part of left foot with necrosis of muscle; M65.072 Abscess of tendon sheath, left ankle and foot; K50.019 Crohn's disease of small intestine with unspecified complications | CPT/HCPCS: 11043; A6197; A6454; G0463 ==

== ENCOUNTER → 2020-08-30 | Outpatient (CLI) | payer OTHER | LOC: WOUNDCARE 09:49 | PROVIDERS: ATTEND Surgery | DX: E11.621 Type 2 diabetes mellitus with foot ulcer (principal); I96 Gangrene, not elsewhere classified; I49.9 Cardiac arrhythmia, unspecified; I25.10 Atherosclerotic heart disease of native coronary artery without angina pectoris; I10 Essential (primary) hypertension; K52.9 Noninfective gastroenteritis and colitis, unspecified | CPT/HCPCS: A6234; G0463; 99212 ==

== ENCOUNTER → 2020-09-04 | Outpatient (CLI) | payer OTHER | LOC: WOUNDCARE 07:55 | PROVIDERS: ATTEND Surgery | DX: E11.621 Type 2 diabetes mellitus with foot ulcer (principal); I96 Gangrene, not elsewhere classified; E11.42 Type 2 diabetes mellitus with diabetic polyneuropathy; L97.523 Non-pressure chronic ulcer of other part of left foot with necrosis of muscle; M65.072 Abscess of tendon sheath, left ankle and foot; K50.019 Crohn's disease of small intestine with unspecified complications | CPT/HCPCS: 11043; G0463 ==

== ENCOUNTER → 2020-09-06 | Outpatient (CLI) | payer OTHER | LOC: WOUNDCARE 08:05 | PROVIDERS: ATTEND Surgery | DX: Z53.9 Procedure and treatment not carried out, unspecified reason (principal) ==

== ENCOUNTER → 2020-09-06 | Outpatient (CLI) | payer OTHER | LOC: WOUNDCARE 08:02 | PROVIDERS: ATTEND Surgery | DX: Z53.9 Procedure and treatment not carried out, unspecified reason (principal) ==

== ENCOUNTER → 2020-09-09 | Outpatient (CLI) | payer OTHER | LOC: WOUNDCARE 08:46 | PROVIDERS: ATTEND Surgery | DX: Z53.9 Procedure and treatment not carried out, unspecified reason (principal) ==

== ENCOUNTER → 2020-09-11 | Outpatient (CLI) | payer OTHER | LOC: WOUNDCARE 08:01 | PROVIDERS: ATTEND Surgery | DX: E11.621 Type 2 diabetes mellitus with foot ulcer (principal); E11.42 Type 2 diabetes mellitus with diabetic polyneuropathy; L97.526 Non-pressure chronic ulcer of other part of left foot with bone involvement without evidence of necrosis; M65.072 Abscess of tendon sheath, left ankle and foot; K50.019 Crohn's disease of small intestine with unspecified complications; E11.52 Type 2 diabetes mellitus with diabetic peripheral angiopathy with gangrene | CPT/HCPCS: 11043; 97605; A6454; G0463 ==

== ENCOUNTER → 2020-09-13 | Outpatient (CLI) | payer OTHER | LOC: WOUNDCARE 08:07 | PROVIDERS: ATTEND Surgery | DX: E11.621 Type 2 diabetes mellitus with foot ulcer (principal); I10 Essential (primary) hypertension; E11.40 Type 2 diabetes mellitus with diabetic neuropathy, unspecified; I25.10 Atherosclerotic heart disease of native coronary artery without angina pectoris | CPT/HCPCS: 97605; A6454; G0463 ==

== ENCOUNTER → 2020-09-16 | Outpatient (CLI) | payer OTHER | LOC: WOUNDCARE 12:20 | PROVIDERS: ATTEND Surgery | DX: E11.621 Type 2 diabetes mellitus with foot ulcer (principal); I10 Essential (primary) hypertension; I25.10 Atherosclerotic heart disease of native coronary artery without angina pectoris; E11.40 Type 2 diabetes mellitus with diabetic neuropathy, unspecified | CPT/HCPCS: A6197; A6454; G0463; 99212 ==

== ENCOUNTER → 2020-09-18 | Outpatient (CLI) | payer OTHER | LOC: WOUNDCARE 08:04 | PROVIDERS: ATTEND Surgery | DX: E11.621 Type 2 diabetes mellitus with foot ulcer (principal); I96 Gangrene, not elsewhere classified; E11.42 Type 2 diabetes mellitus with diabetic polyneuropathy; L97.524 Non-pressure chronic ulcer of other part of left foot with necrosis of bone; M86.472 Chronic osteomyelitis with draining sinus, left ankle and foot; M65.072 Abscess of tendon sheath, left ankle and foot; K50.019 Crohn's disease of small intestine with unspecified complications | CPT/HCPCS: 11044; A6207; A6454; G0463 ==

== ENCOUNTER → 2020-09-23 | Outpatient (CLI) | payer OTHER | LOC: WOUNDCARE 08:02 | PROVIDERS: ATTEND Surgery | DX: E11.621 Type 2 diabetes mellitus with foot ulcer (principal); I10 Essential (primary) hypertension; E11.40 Type 2 diabetes mellitus with diabetic neuropathy, unspecified; I25.10 Atherosclerotic heart disease of native coronary artery without angina pectoris | CPT/HCPCS: A6454; G0463; 99212 ==

== ENCOUNTER → 2020-09-25 | Outpatient (CLI) | payer OTHER | LOC: WOUNDCARE 08:04 | PROVIDERS: ATTEND Surgery | DX: E11.621 Type 2 diabetes mellitus with foot ulcer (principal); E11.42 Type 2 diabetes mellitus with diabetic polyneuropathy; L97.524 Non-pressure chronic ulcer of other part of left foot with necrosis of bone; M86.472 Chronic osteomyelitis with draining sinus, left ankle and foot; M65.072 Abscess of tendon sheath, left ankle and foot; K50.019 Crohn's disease of small intestine with unspecified complications; E11.52 Type 2 diabetes mellitus with diabetic peripheral angiopathy with gangrene | CPT/HCPCS: 11044; A6454; G0463 ==

== ENCOUNTER → 2020-09-27 | Outpatient (CLI) | payer OTHER | LOC: WOUNDCARE 09:22 | PROVIDERS: ATTEND Surgery | DX: E11.621 Type 2 diabetes mellitus with foot ulcer (principal); I25.10 Atherosclerotic heart disease of native coronary artery without angina pectoris; I10 Essential (primary) hypertension; E11.40 Type 2 diabetes mellitus with diabetic neuropathy, unspecified | CPT/HCPCS: A6454; G0463; 99212 ==

== ENCOUNTER → 2020-10-02 | Outpatient (CLI) | payer OTHER | LOC: WOUNDCARE 08:08 | PROVIDERS: ATTEND Surgery | DX: E11.621 Type 2 diabetes mellitus with foot ulcer (principal); I96 Gangrene, not elsewhere classified; E11.42 Type 2 diabetes mellitus with diabetic polyneuropathy; L97.524 Non-pressure chronic ulcer of other part of left foot with necrosis of bone; M86.472 Chronic osteomyelitis with draining sinus, left ankle and foot; M65.072 Abscess of tendon sheath, left ankle and foot; K50.019 Crohn's disease of small intestine with unspecified complications | CPT/HCPCS: 11043; A6454; G0463 ==

== ENCOUNTER → 2020-10-07 | Outpatient (CLI) | payer OTHER ==
[2020-10-07 12:00] LABS: BASOPHILS # (AUTO) 0.1 10^3/uL (0.0-0.1); BASOPHILS % (AUTO) 1 % (0-10); EOSINOPHILS # (AUTO) 0.2 10^3/uL (0.0-0.3); EOSINOPHILS % (AUTO) 2 % (0-10); HEMATOCRIT 38 % (35-52); HEMOGLOBIN 12.1 g/dL (11.5-16.0); LYMPHOCYTES # (AUTO) 1.9 10^3/uL (1.0-4.0); LYMPHOCYTES % (AUTO) 22 % (12-44); MEAN CORPUSCULAR HEMOGLOBIN 29 pg (25-34); MEAN CORPUSCULAR HGB CONC 32 g/dL (32-36); MEAN CORPUSCULAR VOLUME 91 fL (80-99); MEAN PLATELET VOLUME 10.5 fL (9.0-12.2); MONOCYTES # (AUTO) 0.7 10^3/uL (0.0-1.0); MONOCYTES % (AUTO) 8 % (0-12); NEUTROPHILS % (AUTO) 68 % (42-75); PLATELET COUNT 290 10^3/uL (130-400); WHITE BLOOD COUNT 8.8 10^3/uL (4.3-11.0)
[2020-10-07 12:15] LABS: ALBUMIN 3.6 GM/DL (3.2-4.5)
[2020-10-07 12:16] LABS: POTASSIUM 4.4 MMOL/L (3.6-5.0)
[2020-10-07 12:17] LABS: CALCIUM 9.3 MG/DL (8.5-10.1)
[2020-10-07 12:18] LABS: TOTAL PROTEIN 6.7 GM/DL (6.4-8.2)
[2020-10-07 12:20] LABS: BILIRUBIN,TOTAL 0.4 MG/DL (0.1-1.0)
[2020-10-07 12:22] LABS: CREATININE SERUM 0.83 MG/DL (0.60-1.30)
== END ==
LOC: LAB 11:32
PROVIDERS: ATTEND Surgery
DX: E11.621 Type 2 diabetes mellitus with foot ulcer (principal)
CPT/HCPCS: 36415; 80053; 83036; 85025

== ENCOUNTER → 2020-10-07 | Outpatient (CLI) | payer OTHER | LOC: WOUNDCARE 08:04 | PROVIDERS: ATTEND Surgery | DX: E11.621 Type 2 diabetes mellitus with foot ulcer (principal); E11.42 Type 2 diabetes mellitus with diabetic polyneuropathy; L97.524 Non-pressure chronic ulcer of other part of left foot with necrosis of bone; M86.472 Chronic osteomyelitis with draining sinus, left ankle and foot; M65.072 Abscess of tendon sheath, left ankle and foot; K50.019 Crohn's disease of small intestine with unspecified complications; E11.52 Type 2 diabetes mellitus with diabetic peripheral angiopathy with gangrene | CPT/HCPCS: 11044; A6454; G0463 ==

== ENCOUNTER → 2020-10-16 | Outpatient (CLI) | payer OTHER | LOC: WOUNDCARE 07:59 | PROVIDERS: ATTEND Surgery | DX: L97.522 Non-pressure chronic ulcer of other part of left foot with fat layer exposed (principal); E11.621 Type 2 diabetes mellitus with foot ulcer; E11.42 Type 2 diabetes mellitus with diabetic polyneuropathy; L97.524 Non-pressure chronic ulcer of other part of left foot with necrosis of bone; M86.472 Chronic osteomyelitis with draining sinus, left ankle and foot; M65.072 Abscess of tendon sheath, left ankle and foot; K50.019 Crohn's disease of small intestine with unspecified complications; E11.52 Type 2 diabetes mellitus with diabetic peripheral angiopathy with gangrene | CPT/HCPCS: 11042; 11044; A6454; G0463 ==

== ENCOUNTER → 2020-10-18 | Outpatient (CLI) | payer OTHER | LOC: WOUNDCARE 08:51 | PROVIDERS: ATTEND Surgery | DX: E11.621 Type 2 diabetes mellitus with foot ulcer (principal); E11.40 Type 2 diabetes mellitus with diabetic neuropathy, unspecified; I25.10 Atherosclerotic heart disease of native coronary artery without angina pectoris; I10 Essential (primary) hypertension | CPT/HCPCS: A6454; G0463; 99212 ==

== ENCOUNTER → 2020-10-22 | Outpatient (CLI) | payer OTHER | LOC: WOUNDCARE 10:25 | PROVIDERS: ATTEND Surgery | DX: E11.621 Type 2 diabetes mellitus with foot ulcer (principal); I96 Gangrene, not elsewhere classified; E11.42 Type 2 diabetes mellitus with diabetic polyneuropathy; I49.9 Cardiac arrhythmia, unspecified; I25.10 Atherosclerotic heart disease of native coronary artery without angina pectoris; I10 Essential (primary) hypertension; K52.9 Noninfective gastroenteritis and colitis, unspecified ==

== ENCOUNTER → 2020-10-23 | Outpatient (CLI) | payer OTHER | LOC: WOUNDCARE 07:57 | PROVIDERS: ATTEND Surgery | DX: I96 Gangrene, not elsewhere classified (principal); L97.522 Non-pressure chronic ulcer of other part of left foot with fat layer exposed; E11.621 Type 2 diabetes mellitus with foot ulcer; E11.42 Type 2 diabetes mellitus with diabetic polyneuropathy; L97.524 Non-pressure chronic ulcer of other part of left foot with necrosis of bone; M86.472 Chronic osteomyelitis with draining sinus, left ankle and foot; M65.072 Abscess of tendon sheath, left ankle and foot; K50.019 Crohn's disease of small intestine with unspecified complications | CPT/HCPCS: 11044; 87070; 87075; 87205 ==

== ENCOUNTER 2020-10-28 08:15 | Outpatient (RCR) | payer OTHER | END 2020-10-28 12:00 | disposition home or self-care (01) | LOC: WOUNDCARE 08:15 | PROVIDERS: ATTEND Surgery | DX: E11.622 Type 2 diabetes mellitus with other skin ulcer (principal) | CPT/HCPCS: 82947; 99183; 99212 ==

== ENCOUNTER → 2020-10-28 | Outpatient (CLI) | payer OTHER | LOC: WOUNDCARE 08:00 | PROVIDERS: ATTEND Surgery | DX: E11.621 Type 2 diabetes mellitus with foot ulcer (principal); I96 Gangrene, not elsewhere classified; E11.42 Type 2 diabetes mellitus with diabetic polyneuropathy; L97.526 Non-pressure chronic ulcer of other part of left foot with bone involvement without evidence of necrosis; M86.472 Chronic osteomyelitis with draining sinus, left ankle and foot; M65.072 Abscess of tendon sheath, left ankle and foot; K50.019 Crohn's disease of small intestine with unspecified complications | CPT/HCPCS: 11042; A6454; G0463 ==

== ENCOUNTER → 2020-10-31 | Outpatient (CLI) | payer OTHER | LOC: WOUNDCARE 11:47 | PROVIDERS: ATTEND Surgery | DX: E11.621 Type 2 diabetes mellitus with foot ulcer (principal); I96 Gangrene, not elsewhere classified | CPT/HCPCS: A6454; G0463; 99213 ==

== ENCOUNTER → 2020-11-04 | Outpatient (CLI) | payer SELFPAY | LOC: WOUNDCARE 09:53 | PROVIDERS: ATTEND Surgery | DX: E11.621 Type 2 diabetes mellitus with foot ulcer (principal); I96 Gangrene, not elsewhere classified; E11.42 Type 2 diabetes mellitus with diabetic polyneuropathy; L97.522 Non-pressure chronic ulcer of other part of left foot with fat layer exposed; M86.472 Chronic osteomyelitis with draining sinus, left ankle and foot; K50.019 Crohn's disease of small intestine with unspecified complications | CPT/HCPCS: 11042; A6454; G0463 ==

== ENCOUNTER → 2020-11-07 | Outpatient (CLI) | payer OTHER ==
[~2020-11-07] MED LIST changes: -DOXY100C2 PO; +DOXY100C5 PO
== END ==
LOC: WOUNDCARE 11:21
PROVIDERS: ATTEND Surgery
DX: L97.522 Non-pressure chronic ulcer of other part of left foot with fat layer exposed (principal); I87.332 Chronic venous hypertension (idiopathic) with ulcer and inflammation of left lower extremity; I25.10 Atherosclerotic heart disease of native coronary artery without angina pectoris; E11.40 Type 2 diabetes mellitus with diabetic neuropathy, unspecified
CPT/HCPCS: A6454; G0463; 99212

== ENCOUNTER → 2020-11-11 | Outpatient (CLI) | payer OTHER | LOC: WOUNDCARE 09:47 | PROVIDERS: ATTEND Surgery | DX: E11.621 Type 2 diabetes mellitus with foot ulcer (principal); I96 Gangrene, not elsewhere classified; E11.42 Type 2 diabetes mellitus with diabetic polyneuropathy; L97.522 Non-pressure chronic ulcer of other part of left foot with fat layer exposed; M86.472 Chronic osteomyelitis with draining sinus, left ankle and foot; M65.072 Abscess of tendon sheath, left ankle and foot; K50.019 Crohn's disease of small intestine with unspecified complications | CPT/HCPCS: 11042; A6454; G0463 ==

== ENCOUNTER → 2020-11-14 | Outpatient (CLI) | payer OTHER | LOC: WOUNDCARE 11:29 | PROVIDERS: ATTEND Surgery | DX: Z01.89 Encounter for other specified special examinations (principal) | CPT/HCPCS: A6454; G0463; 99212 ==

== ENCOUNTER → 2020-11-15 | Outpatient (CLI) | payer OTHER | LOC: WOUNDCARE 11:37 | PROVIDERS: ATTEND Surgery | DX: E11.621 Type 2 diabetes mellitus with foot ulcer (principal); E11.40 Type 2 diabetes mellitus with diabetic neuropathy, unspecified; I10 Essential (primary) hypertension | CPT/HCPCS: A6234; A6454; G0463; 99212 ==

== ENCOUNTER → 2020-11-18 | Outpatient (CLI) | payer OTHER | LOC: WOUNDCARE 10:17 | PROVIDERS: ATTEND Surgery | DX: E11.621 Type 2 diabetes mellitus with foot ulcer (principal); I96 Gangrene, not elsewhere classified; E11.42 Type 2 diabetes mellitus with diabetic polyneuropathy; L97.522 Non-pressure chronic ulcer of other part of left foot with fat layer exposed; M86.472 Chronic osteomyelitis with draining sinus, left ankle and foot; M65.072 Abscess of tendon sheath, left ankle and foot; K50.019 Crohn's disease of small intestine with unspecified complications | CPT/HCPCS: 15275; G0463 ==

== ENCOUNTER → 2020-11-21 | Outpatient (CLI) | payer OTHER | LOC: WOUNDCARE 10:46 | PROVIDERS: ATTEND Surgery | DX: L98.492 Non-pressure chronic ulcer of skin of other sites with fat layer exposed (principal); E11.621 Type 2 diabetes mellitus with foot ulcer; E11.42 Type 2 diabetes mellitus with diabetic polyneuropathy; L97.522 Non-pressure chronic ulcer of other part of left foot with fat layer exposed; M86.472 Chronic osteomyelitis with draining sinus, left ankle and foot; M65.072 Abscess of tendon sheath, left ankle and foot; K50.019 Crohn's disease of small intestine with unspecified complications; E11.52 Type 2 diabetes mellitus with diabetic peripheral angiopathy with gangrene | CPT/HCPCS: 99212 ==

== ENCOUNTER → 2020-11-25 | Outpatient (CLI) | payer OTHER | LOC: WOUNDCARE 09:47 | PROVIDERS: ATTEND Surgery | DX: L88 Pyoderma gangrenosum (principal); L98.492 Non-pressure chronic ulcer of skin of other sites with fat layer exposed; E11.621 Type 2 diabetes mellitus with foot ulcer; E11.42 Type 2 diabetes mellitus with diabetic polyneuropathy; L97.522 Non-pressure chronic ulcer of other part of left foot with fat layer exposed; M86.472 Chronic osteomyelitis with draining sinus, left ankle and foot; M65.072 Abscess of tendon sheath, left ankle and foot; K50.019 Crohn's disease of small intestine with unspecified complications; E11.52 Type 2 diabetes mellitus with diabetic peripheral angiopathy with gangrene | CPT/HCPCS: 11042; G0463 ==

== ENCOUNTER → 2020-12-02 | Outpatient (CLI) | payer OTHER | LOC: WOUNDCARE 09:51 | PROVIDERS: ATTEND Family Medicine | DX: K50.019 Crohn's disease of small intestine with unspecified complications (principal); L88 Pyoderma gangrenosum; L98.492 Non-pressure chronic ulcer of skin of other sites with fat layer exposed; E11.621 Type 2 diabetes mellitus with foot ulcer; E11.42 Type 2 diabetes mellitus with diabetic polyneuropathy; E11.52 Type 2 diabetes mellitus with diabetic peripheral angiopathy with gangrene; L97.522 Non-pressure chronic ulcer of other part of left foot with fat layer exposed; M86.472 Chronic osteomyelitis with draining sinus, left ankle and foot; M65.072 Abscess of tendon sheath, left ankle and foot | CPT/HCPCS: 11042; G0463 ==

== ENCOUNTER → 2020-12-09 | Outpatient (CLI) | payer OTHER ==
[2020-12-09 10:39] VITALS: BP 163/77
--- NOTE | 2020-12-09 10:39 | Cardiology Stress Test Report ---
Stress Test Report Date of Procedure/Referring: Date of Procedure: Dec 09, 2020 PCP Stephanie Heredia MD Admitting Physician Yanira Johnson MD Indications: CAD Baseline Heart Rate: 83 Baseline Blood Pressure: Blood Pressure Systolic: 163 Blood Pressure Diastolic: 77 Baseline EKG: Baseline EKG: NSR Summary After explaining the procedure to the patient, she signed a consent and then brought to the stress nuclear laboratory. Patient received 0.4 mg Lexiscan for stress test, ECG, heart rate and blood pressure were monitored continuously. Resting and stress dose of radio tracer were injected, imaging was acquired and reviewed in short axis, horizontal long axis and vertical long axis views. TID: 1.18 SSS: 5 SDS: 3 EF: 69 1. Patient tolerated Lexiscan well 2. Baseline hypertension persisted during test 3. Mild reversible ischemia involving the mid to apical inferior wall and inferolateral wall 4. Normal left ventricular size, EF 69% JAVIER HERNANDEZ MD Dec 09, 2020 10:39
== END ==
LOC: WOUNDCARE 09:59
PROVIDERS: ATTEND Family Medicine
DX: L98.492 Non-pressure chronic ulcer of skin of other sites with fat layer exposed (principal); L88 Pyoderma gangrenosum; E11.621 Type 2 diabetes mellitus with foot ulcer; E11.42 Type 2 diabetes mellitus with diabetic polyneuropathy; E11.52 Type 2 diabetes mellitus with diabetic peripheral angiopathy with gangrene; L97.522 Non-pressure chronic ulcer of other part of left foot with fat layer exposed; M86.472 Chronic osteomyelitis with draining sinus, left ankle and foot; M65.072 Abscess of tendon sheath, left ankle and foot; K50.019 Crohn's disease of small intestine with unspecified complications
CPT/HCPCS: 11042; G0463

== ENCOUNTER → 2020-12-09 | Outpatient (CLI) | payer OTHER ==
[~2020-12-09] VITALS: Ht 172 cm; Wt 96.0 kg
[~2020-12-09] MED LIST changes: +REGADENOSON 0.4 MG/5 ML SYR (LEXISCAN) IV ONE
[2020-12-09] MEDS: CATHETER FLUSH 10 ML SYR IV PRN ×2 (07:46→09:04)
[2020-12-09 09:03] VITALS: BP 163/97
== END ==
LOC: CARD 08:00
PROVIDERS: ATTEND Physician Assistant
DX: I25.10 Atherosclerotic heart disease of native coronary artery without angina pectoris (principal); I10 Essential (primary) hypertension
CPT/HCPCS: 78452; 93017; A9502

== ENCOUNTER → 2020-12-16 | Outpatient (CLI) | payer OTHER ==
[~2020-12-16] MED LIST changes: +ASCO-262 PO; +ATOR20TA66 PO; +CALC-250 PO; +CITA20TA12 PO; +EZET10TA49 PO; +MULT-1136 PO; -REGADENOSON 0.4 MG/5 ML SYR (LEXISCAN) IV ONE
== END ==
LOC: WOUNDCARE 08:48
PROVIDERS: ATTEND Family Medicine
DX: K50.019 Crohn's disease of small intestine with unspecified complications (principal); L88 Pyoderma gangrenosum; E11.42 Type 2 diabetes mellitus with diabetic polyneuropathy; E11.52 Type 2 diabetes mellitus with diabetic peripheral angiopathy with gangrene
CPT/HCPCS: 99212

== ENCOUNTER 2020-12-18 06:44 | Day surgery (SDC) | payer OTHER ==
[~2020-12-18] VITALS: Ht 172 cm; Wt 97.0 kg
[2020-12-18] VITALS (13 sets, daily range): BP systolic 124–167; BP diastolic 61–91
[~2020-12-18 06:44] MED LIST changes: -ASCO-262 PO; -ATOR20TA66 PO; -CALC-250 PO; -CITA20TA12 PO; -EZET10TA49 PO; -MULT-1136 PO
[2020-12-18] MEDS ORDERED: NS IV 1000 ML 1,000 ML ONE (06:52)
[2020-12-18] MEDS ORDERED: HEParin (CATH LAB) 2,000 ML IV ONE (06:52)
[2020-12-18] MEDS ORDERED: LIDOCAINE 1% INJ 20 ML 20 ML VIAL ONE (06:52)
--- NOTE | 2020-12-18 07:32 | Diagnostic Imaging Report ---
Indication: Abnormal stress test. Chest pain. Comparison 06/28/2020. The lungs are well-aerated and clear. There is no air-trapping. Heart is not enlarged. No pulmonary edema or hilar adenopathy. No pneumothorax or pleural effusion. There is a implanted telemetry monitor overlying the left chest. IMPRESSION: No acute abnormalities noted. Dictated by: Dictated on workstation # [id number]
[2020-12-18] MEDS ORDERED: L.AC1CAP6 PO (07:39)
[2020-12-18] MEDS ORDERED: CITA20TA12 PO (07:39)
[2020-12-18] MEDS ORDERED: CALC-250 PO (07:39)
[2020-12-18] MEDS ORDERED: ACET-2650 PO (07:39)
[2020-12-18] MEDS ORDERED: ASCO-262 PO (07:39)
[2020-12-18] MEDS ORDERED: MULT-1136 PO (07:39)
[2020-12-18 08:18] LABS: HEMATOCRIT 40 % (35-52); HEMOGLOBIN 12.9 g/dL (11.5-16.0); MEAN CORPUSCULAR HEMOGLOBIN 29 pg (25-34); MEAN CORPUSCULAR HGB CONC 33 g/dL (32-36); MEAN CORPUSCULAR VOLUME 89 fL (80-99); MEAN PLATELET VOLUME 9.9 fL (9.0-12.2); PLATELET COUNT 294 10^3/uL (130-400); WHITE BLOOD COUNT 7.9 10^3/uL (4.3-11.0)
--- NOTE | 2020-12-18 08:26 | Conscious Sedation/ASA ---
Conscious Sedation Pre-Proced Time 08:26 ASA Score 3 For ASA 3 and 4: Consider anesthesia and medical clearance. Also, for patients with a history of failed moderate sedation consider anesthesia. Airway Lungs Heart ASA score ASA 1: a normal healthy patient ASA 2: a patient with a mild systemic disease (mid diabetes, controlled hypertension, obesity X ASA 3: a patient with a severe systemic disease that limits activity (angina, COPD, prior Myocardial infarction) ASA 4: a patient with an incapacitating disease that is a constant threat to life (CHF, renal failure) ASA 5: a moribund patient not expected to survive 24 hrs. (ruptured aneurysm) ASA 6: a declared brain- patient whose organs are being harvested. For emergent operations, add the letter E after the classification Mallampati Classification Grade 3 Sedation Plan Analgesia, Amnesia, Plan communicated to team members, Discussed options with patient/fam, Discussed risks with patient/fam The patient is an appropriate candidate to undergo the planned procedure, sedation, and anesthesia. The patient immediately re-assessed prior to indication. JAVIER HERNANDEZ MD Dec 18, 2020 08:26
[2020-12-18 08:32] LABS: PROTHROMBIN TIME PATIENT 13.2 SEC (12.2-14.7)
[2020-12-18 08:35] LABS: BILIRUBIN,URINE NEGATIVE (NEGATIVE); CLARITY,URINE CLEAR; COLOR,URINE YELLOW; GLUCOSE, URINE (UA) TRACE (NEGATIVE); KETONES,URINE NEGATIVE (NEGATIVE); LEUKOCYTE ESTERASE ,URINE 2+ (NEGATIVE); NITRITE,URINE NEGATIVE (NEGATIVE); PROTEIN,URINE TRACE (NEGATIVE)
[2020-12-18 08:38] LABS: BACTERIA,URINE LARGE /HPF; RBC,URINE RARE /HPF; WBC,URINE 50-100 /HPF
[2020-12-18 08:45] LABS: ALBUMIN 3.8 GM/DL (3.2-4.5); BILIRUBIN,TOTAL 0.4 MG/DL (0.1-1.0); CALCIUM 9.1 MG/DL (8.5-10.1); CREATININE SERUM 0.97 MG/DL (0.60-1.30); POTASSIUM 4.6 MMOL/L (3.6-5.0); TOTAL PROTEIN 7.1 GM/DL (6.4-8.2)
[2020-12-18] MEDS ORDERED: VERAPAMIL 5 MG/2 ML (CALAN) VIAL IV ONE (09:11)
[2020-12-18] MEDS ORDERED: NITRO DRIP 25000 MCG/D5W 250 ML IV ONE (09:11)
[2020-12-18] MEDS ORDERED: MIDAZOLAM 5 MG/5 ML (VERSED) VIAL ONE (09:11)
[2020-12-18] MEDS ORDERED: HEParin 1000 UNIT/ML (10ML VIAL) FOR BOLUS ONE (09:11)
[2020-12-18] MEDS ORDERED: fentaNYL INJ 100 MCG/2 ML AMP ONE (09:11)
[2020-12-18] MEDS ORDERED: ADENOSINE 90 MG/30 ML (ADENOSCAN) VIAL IV ONE (09:55)
[2020-12-18] MEDS ORDERED: CLOPIDOGREL 300 MG (PLAVIX) TABLET PO ONE (10:08)
[2020-12-18] MEDS ORDERED: ASPIRIN 325 MG (5 GR) TABLET ONE (10:08)
[2020-12-18] MEDS ORDERED: NON-FORMULARY MEDICATION 1 EA EA (Acetaminophen (Tylenol Arthritis) 1,300 MG) PO PRN (10:15)
[2020-12-18] MEDS ORDERED: NS IV 1000 ML 1,000 ML IV SCH (10:15)
--- NOTE | 2020-12-18 10:17 | Cardiac Cath Report ---
Cardiac Cath Report Physician (s)/Bulldozer Mechanic (s) Physician JAVIER HERNANDEZ MD Pre-Procedure Diagnosis Pre-Procedure Diagnosis: Coronary artery disease Post-Procedure Note Procedure Start Date: Dec 18, 2020 Name of Procedure: Left heart catheterization Primary stenting of the LAD FFR to the right coronary artery Findings/Procedure Note PROCEDURE NOTE: 60-year-old lady with history of coronary artery disease, had history of stenting to the diagonal artery, has been having chest pain, had an abnormal stress test, scheduled for cardiac catheterization possible PTCA. After explaining the procedure to the patient, all pros and cons were explained, all questions were answered. The patient signed the consent and then she was placed on the cardiac catheterization laboratory. Groin was prepped SL fashion local anesthesia was used. Sheath placed in the right radial artery, [place] catheter was advanced to the left ventricular cavity, pullback LV to aorta was done, engaged the right and left coronary system and angiogram was done. Patient was noted to have multiple lesions involving the LAD and right coronary artery. EBU 3.5 guide was advanced to the left coronary system, BMW wire was advanced and parked distally, primary stenting using Xience skypoint 2.25 x 23 mm expanded to 2.5 mm with excellent results. JR guide with sideholes was advanced to the right coronary system and FFR was measured, baseline was 0.92, patient was given adenosine challenge over 2 minutes which changed the FFR to 0.86. Still is not considered significant. Wire was removed angiogram showed no complication At the end of the procedure the sheath was removed. Vascular band deployed FINDINGS: Hemodynamics LV 106/18, end-diastolic pressure of 18 Aorta 99/65 mean of 79 ANATOMY: Left Main is free of obstructive disease Left Anterior Descending has borderline lesion in the midportion, severe stenosis distally long segment, successful primary stenting using skypoint 2.25. x 23 mm expanded to 2.5 mm with excellent results, stented the diagonal artery is patent with mild disease nonobstructive disease Left Circumflex is small to moderate in size with no obstructive disease Right Coronary Artery is dominant artery with borderline stenosis, FFR was done with adenosine challenge and showing maximum gradient of 0.86. Nonobstructive lesion LV Gram was not done, pressure was measured CONCLUSION: 1. Severe stenosis in the distal LAD with successful primary stenting using skypoint 2.25 x 23 mm expanded to 2.5 mm with excellent results 2. Moderate stenosis in the mid LAD, patent stent in the diagonal artery, nonobstructive disease 3. Moderate stenosis in the mid right coronary artery, FFR with adenosine challenge was 0.86 4. Normal left ventricular end-diastolic pressure DISCUSSION AND RECOMMENDATION: Continue on aspirin and Plavix, adding Lipitor 20 mg daily and monitor tolerance and response Anesthesia Type: Conscious Sedation Estimated blood loss (mL): 30 ml Contrast Amount: 115 ml Total Radiation Dose: 812 mGy Post-Procedure Diagnosis Post-operative diagnosis: Chest pain Coronary artery disease Hypertension Hyperlipidemia JAVIER HERNANDEZ MD Dec 18, 2020 10:17
[2020-12-18] MEDS ORDERED: ATOR20TA66 PO (10:27)
[2020-12-18] MEDS ORDERED: EZET10TA49 PO (10:27)
--- NOTE | 2020-12-18 10:27 | Discharge Inst-Post CATH ---
Discharge Inst-CATH/EP Problems Reviewed?: Yes Post Cardiac Cath/EP D/C Inst Follow Up/Plan Appointment with Dr. Amador's office in 2 to 4 weeks <b>CARDIAC CATH/EP PROCEDURE DISCHARGE INSTRUCTIONS</b> ACTIVITY * Go Home directly and rest. * Limit activity of the leg (or wrist if it was used) for 7 days including aer obics, swimming, jogging, bicycling, etc. * Restrict stair-climbing for 7 days if possible, if not, climb up with your non-cath leg, then bring together on the same step. * Avoid lifting, pushing, pulling or excessive movement of the affected extremi ty for 7 days. * Customary sexual activity may be resumed after 2 days-use caution not to use a position that strains or causes pain to the affected extremity. * No driving for 24 hours. * NO SMOKING. * Avoid straining for bowel movements for 7 days. * Gentle walking on level ground is allowed. * Returning to work will depend on the type of procedure and the results. Your doctor will discuss this with you. CALL YOUR DOCTOR FOR ANY OF THE FOLLOWING: *If bleeding from the puncture site occurs- Apply gentle pressure to site with clean cloth and call your doctor or EMS. * If a knot or lump forms under the skin, increases in size, or causes pain. * If bruising appears to be worsening or moving further down your leg instead of disappearing. * Temperature above 101 F. CARE OF YOUR GROIN INCISION; * Bruising or purple discoloration of the skin near the puncture site is common. * You may shower only, no bathtub bathing for 5 days. Be careful to avoid slipping as your leg may feel stiff. * If a closure device was used on your femoral artery, please see the attached guide regarding care of the device and your leg. * Leave dressing on FOR 24 hours. CARE OF YOUR WRIST INCISION; * Bruising or purple discoloration of the skin near the puncture site is common. * You may shower. * DO NOT submerge wrist. * Leave dressing on FOR 24 hours. JAVIER AMADOR MD Dec 18, 2020 10:27
[2020-12-18] MEDS: NS IV 1000 ML 1,000 ML IV SCH ×2 (10:51→17:03)
[2020-12-18] MEDS ORDERED: METF-478 PO (11:59)
--- NOTE | 2020-12-18 11:59 | Discharge Inst-Post CATH ---
Discharge Inst-CATH/EP Post Cardiac Cath/EP D/C Inst Follow Up/Plan Appointment with Dr. Amador's office in 2 to 4 weeks Hold Metformin for 48 hours <b>CARDIAC CATH/EP PROCEDURE DISCHARGE INSTRUCTIONS</b> ACTIVITY * Go Home directly and rest. * Limit activity of the leg (or wrist if it was used) for 7 days including aerobics, swimming, jogging, bicycling, etc. * Restrict stair-climbing for 7 days if possible, if not, climb up with your non-cath leg, then bring together on the same step. * Avoid lifting, pushing, pulling or excessive movement of the affected extremity for 7 days. * Customary sexual activity may be resumed after 2 days-use caution not to use a position that strains or causes pain to the affected extremity. * No driving for 24 hours. * NO SMOKING. * Avoid straining for bowel movements for 7 days. * Gentle walking on level ground is allowed. * Returning to work will depend on the type of procedure and the results. Your doctor will discuss this with you. CALL YOUR DOCTOR FOR ANY OF THE FOLLOWING: *If bleeding from the puncture site occurs- Apply gentle pressure to site with clean cloth and call your doctor or EMS. * If a knot or lump forms under the skin, increases in size, or causes pain. * If bruising appears to be worsening or moving further down your leg instead of disappearing. * Temperature above 101 F. CARE OF YOUR GROIN INCISION; * Bruising or purple discoloration of the skin near the puncture site is common. * You may shower only, no bathtub bathing for 5 days. Be careful to avoid slipping as your leg may feel stiff. * If a closure device was used on your femoral artery, please see the attached guide regarding care of the device and your leg. * Leave dressing on FOR 24 hours. CARE OF YOUR WRIST INCISION; * Bruising or purple discoloration of the skin near the puncture site is common. * You may shower. * DO NOT submerge wrist. * Leave dressing on FOR 24 hours. JAVIER AMADOR MD Dec 18, 2020 11:59
[2020-12-18] MEDS ORDERED: NON-FORMULARY MEDICATION 1 EA EA (Insulin Aspart (Novolog Flexpen) 15 UNITS) SQ SCH (12:00)
[2020-12-18] MEDS ORDERED: ACETAMINOPHEN 325 MG TABLET PO PRN (12:30)
[2020-12-18] MEDS ORDERED: inSUlin ASPART (NovoLOG) 1 UNIT/0.01 ML (CHARGE PER UNIT) SC ONE (13:45)
[2020-12-18] MEDS ORDERED: inSUlin ASPART (NovoLOG) 1 UNIT/0.01 ML (CHARGE PER UNIT) SC SCH (17:00)
[2020-12-18] MEDS ORDERED: PREGABALIN 100 MG (LYRICA) CAPSULE PO SCH (21:00)
[2020-12-18] MEDS ORDERED: NON-FORMULARY MEDICATION 1 EA EA (Insulin Detemir (Levemir Flextouch) 25 UNIT) SQ SCH (21:00)
[2020-12-18] MEDS ORDERED: eZETimibe 10 MG (ZETIA) TABLET PO SCH (21:00)
[2020-12-19] MEDS ORDERED: CLOPIDOGREL 75 MG (PLAVIX) TABLET PO SCH (09:00)
[2020-12-19] MEDS ORDERED: PANTOPRAZOLE 40 MG (PROTONIX) TAB PO SCH (09:00)
[2020-12-19] MEDS ORDERED: ASPIRIN E.C. 81 MG (ECOTRIN) TAB PO SCH (09:00)
== END 2020-12-18 17:25 | disposition home or self-care (01) ==
LOC: CATH 06:44 → CSD 10:30 → CATH 17:25
PROVIDERS: ATTEND Internal Medicine Cardiovascular Disease
DX: I25.10 Atherosclerotic heart disease of native coronary artery without angina pectoris (principal); I10 Essential (primary) hypertension; E78.2 Mixed hyperlipidemia; I69.354 Hemiplegia and hemiparesis following cerebral infarction affecting left non-dominant side; E11.9 Type 2 diabetes mellitus without complications; R82.998 Other abnormal findings in urine; Z87.891 Personal history of nicotine dependence; Z95.5 Presence of coronary angioplasty implant and graft; Z79.82 Long term (current) use of aspirin; Z79.02 Long term (current) use of antithrombotics/antiplatelets; Z79.4 Long term (current) use of insulin; Z89.411 Acquired absence of right great toe
CPT/HCPCS: 71045; 80053; 80061; 81000; 82947; 85027; 85610; 85730; 87077; 87081; 87088; 93458; 93571; C1769 ×2; C1874; C1887 ×2; C1894; C9600; 36415; 87186

== ENCOUNTER 2021-05-15 20:58 | Inpatient (IN) | payer MEDICARE, OTHER ==
[~2021-05-15] VITALS: Ht 173 cm; Wt 97.0 kg
[~2021-05-15 20:58] MED LIST changes: +ASCO-262 PO; +ATOR20TA66 PO; +CALC-250 PO; +CITA20TA12 PO; +EZET10TA49 PO; -FLUC150T2 PO; +FLUC150T41 PO; -LISI-729 PO; +LISI5TAB20 PO; +MULT-1136 PO
--- NOTE | 2021-05-15 21:07 | ED Lower Extremity ---
General Stated Complaint: FALL Source: patient Exam Limitations: no limitations History of Present Illness Date Seen by Provider: May 15, 2021 Time Seen by Provider: 21:03 Initial Comments Patient is a 61-year-old female with a history of coronary artery disease currently on Plavix who presents ED with left hip pain. 30 minutes ago patient fell while going up the stairs in the carport when she lost her balance landing on her left hip. Was not able to stand. External rotation with shortening. Denies history of hip replacement. Denies hit her head, loss of conscious. Only complaint is left hip pain. She states she did hear a"crack". Denies chest pain, shortness of breath, fever, chills. Received 50 IM fentanyl in route. Allergies and Home Medications Allergies Coded Allergies: cefdinir (Verified Adverse Reaction, Mild, NAUSEA, yeast infection, 11/08/19) Cephalosporins (Verified Adverse Reaction, Unknown, yeast infections, 11/08/19) Patient Home Medication List Home Medication List Reviewed: Yes Acetaminophen (Tylenol Arthritis) 650 Mg Tablet.er, 1,300 MG PO Q8H PRN for PAIN-MILD (1-4), (Reported) Entered as Reported by: ROB VALENCIA on 12/18/20738 Ascorbate Calcium (Vitamin C) 500 Mg Tablet, 500 MG PO DAILY, (Reported) Entered as Reported by: ROB VALENCIA on 12/18/20738 Aspirin (Aspirin EC) 81 Mg Tablet.dr, 81 MG PO DAILY, (Reported) Entered as Reported by: EDY KOTHARI on 09/05/18 1120 Atorvastatin Calcium (Atorvastatin Calcium) 20 Mg Tablet, 20 MG PO HS Prescribed by: JAVIER HERNANDEZ on 12/18/20 1027 Cholecalciferol (Vitamin D3) (Vitamin D3) 125 Mcg Tablet, 125 MCG PO DAILY, (Reported) Entered as Reported by: ROB VALENCIA on 12/18/20 07 Citalopram Hydrobromide (Celexa) 20 Mg Tablet, 20 MG PO DAILY, (Reported) Entered as Reported by: ROB VALENCIA on 12/18/20 07 Clopidogrel Bisulfate (Plavix) 75 Mg Tablet, 75 MG PO DAILY, (Reported) Entered as Reported by: SAM NEELY on 08/01/19 0958 Exenatide Microspheres (Bydureon Bcise) 2 Mg/0.85 Ml Auto.injct, 2 MG SQ SUN, (Reported) Entered as Reported by: SAM NEELY on 06/28/20 1555 Ezetimibe (Ezetimibe) 10 Mg Tablet, 10 MG PO HS Prescribed by: JAVIER HERNANDEZ on 12/18/20 1027 Insulin Aspart (Novolog Flexpen) 300 Units/3 Ml Solution, 15 UNITS SQ AC, (Reported) Entered as Reported by: SAM NEELY on 08/01/19 1009 Insulin Detemir (Levemir Flextouch) 100 Unit/1 Ml Insuln.pen, 25 UNIT SQ HS, (Reported) Entered as Reported by: SAM NEELY on 08/01/19 1009 L.acidoph & Paracasei,B.lactis (Probiotic) 1 Each Capsule, 1 EACH PO DAILY, (Reported) Entered as Reported by: ROB VALENCIA on 12/18/20 0739 Metformin HCl (Metformin HCl ER) 500 Mg Tab.er.24, 500 MG PO BID Prescribed by: JAVIER HERNANDEZ on 12/18/20 1159 Metoprolol Succinate (Metoprolol Succinate) 25 Mg Tab.er.24h, 25 MG PO DAILY, (Reported) Entered as Reported by: ARELI PURCELL on 04/02/20 1145 Multivitamin (Multivitamin) 1 Each Tablet, 1 EACH PO DAILY, (Reported) Entered as Reported by: ROB VALENCIA on 12/18/20 0739 Pantoprazole Sodium (Protonix) 40 Mg Tablet.dr, 40 MG PO DAILY, (Reported) Entered as Reported by: SAGRARIO READ on 11/08/19 1032 Pregabalin (Pregabalin) 100 Mg Capsule, 100 MG PO BID, (Reported) Entered as Reported by: SAM NEELY on 08/01/19 0958 Review of Systems Constitutional: No chills, No diaphoresis EENTM: No ear pain, No mouth pain, No mouth swelling Respiratory: No cough, No dyspnea on exertion Cardiovascular: No edema Gastrointestinal: No abdominal pain, No diarrhea, No nausea, No vomiting Genitourinary: No decreased output, No discharge Musculoskeletal: No back pain; joint pain, joint swelling, muscle pain; No muscle weakness Skin: No change in color, No change in hair/nails All Other Systems Reviewed Negative Unless Noted: Yes Past Hgywjwm-Nxclpu-Xttsgo Hx Immunizations Up To Date Tetanus Booster (TDap): Less than 5yrs PED Vaccines UTD: No Seasonal Allergies Seasonal Allergies: Yes Past Medical History Surgeries: Yes (KIDNEY/BLADDER SURG CHILD;LOOP RECORDER;L GREAT TOE AMPUTATION) Amputation, Appendectomy, Bladder Surgery, Cardiac, Section, Coronary Stent, Gallbladder, Renal Respiratory: No Currently Using CPAP: No Currently Using BIPAP: No Cardiac: Yes (STENT, LOOP RECORDER ) Coronary Artery Disease, Hypertension, Irregular Heartbeat Neurological: Yes (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) Amputee Endocrine: Yes Diabetes, Insulin dep HEENT: No (READING GLASSES) Loss of Vision: Denies Hearing Impairment: Denies Cancer: No Psychosocial: Yes Anxiety, Depression Integumentary: Yes (DIABETIC FOOT ULCERS; OSTEOMYELITIS OF TOES) Blood Disorders: No Adverse Reaction/Blood Tranf: No Family Medical History Arthritis Cataracts Diabetes mellitus 19 MOTHER FH: lupus 19 MOTHER Hypercholesterolemia Hypertension No Family History of: AIDS Abdominal aortic aneurysm Gustavo's disease Alcoholism Alzheimer's disease Aphasia Asthma Cancer of mouth Cardiovascular disease Colon cancer Completed stroke Congenital disease Congenital heart disease Coronary thrombosis Cystic fibrosis Deafness or hearing loss Dementia Drug abuse Dysphasia Fibrocystic disease of breast Gastroenteritis Glaucoma Headache disorder Infertility Kidney disease Myocardial infarction Neoplasm Not obtainable due to adoption Osteoporosis Parkinson's disease Prostate cancer Psychosocial problem Respiratory disorder Seizure disorder Severe allergy Thyroid disease Tuberculosis Visual disorder Diabetes, Hypertension, Other Conditions/Hx ADDITIONAL PAST MEDICAL/SURGICAL HISTORY: -RIGHT GREAT TOE AMPUTATION 08/02/2019 DUE TO OSTEOMYELITIS-DONE BY DR. SMITH -PERIPHERAL ANGIOGRAM 08/03/[address] GARRISON:FINDINGS: No significant disease in the distal abdominal aorta. Nonselective angiogram of the renal arteries showed bilateral patent renal arteries. Patent bilateral common iliac artery, external iliac artery, common femoral artery. Mild proximal left SFA disease. Patent left popliteal artery and three-vessel runoff below the knee. Patent right SFA, popliteal artery and three-vessel runoff below the knee. CONCLUSION: Minimal PAD. Continue secondary prevention measures. -LOOP RECORDER -CARDIAC CATH WITH STENT TO FIRST 2013 -KIDNEY AND BLADDER SURGERY CHILD -04/10/20--FLEXIBLE SIGMOIDOSCOPY BY DR. SMITH - -APPENDECTOMY -CHOLECYSTECTOMY Physical Exam Vital Signs Vital Signs - First Documented 05/15/21 21:00 Temp 36.6 Pulse 71 Resp 18 B/P (MAP) 182/94 (123) Pulse Ox 93 O2 Delivery Room Air Capillary Refill : Height, Weight, BMI Height: 5'8.00" Weight: 166lbs. 0.0oz. [id number]; 32.78 BMI Method:Stated General Appearance: WD/WN, no apparent distress HEENT: PERRL/EOMI, normal ENT inspection, TMs normal, pharynx normal Neck: non-tender, full range of motion, supple Cardiovascular: regular rate, rhythm, no edema, no gallop, no JVD Respiratory: chest non-tender, lungs clear, normal breath sounds, no respiratory distress, no accessory muscle use Gastrointestinal: normal bowel sounds, non tender, soft, no organomegaly Hips: left hip ecchymosis, left hip pain, left hip soft tissue tenderness, left hip swelling Knees: bilateral knee non-tender, bilateral knee normal inspection, bilateral knee normal range of motion Ankles: bilateral ankle non-tender, bilateral ankle normal inspection, bilateral ankle normal range of motion Feet: bilateral foot non-tender, bilateral foot normal inspection, bilateral foot normal range of motion Neurologic/Psychiatric: entry level buyer II-XII nml as tested, no motor/sensory deficits, alert Skin: normal color, warm/dry Progress/Results/Core Measures Results/Orders Lab Results Laboratory Tests Test 05/15/21 21:05 Range/Units White Blood Count 9.6 4.3-11.0 10^3/uL Red Blood Count 5.08 3.80-5.11 10^6/uL Hemoglobin 14.0 11.5-16.0 g/dL Hematocrit 44 35-52 % Mean Corpuscular Volume 86 80-99 fL Mean Corpuscular Hemoglobin 28 25-34 pg Mean Corpuscular Hemoglobin Concent 32 32-36 g/dL Red Cell Distribution Width 13.7 10.0-14.5 % Platelet Count 357 130-400 10^3/uL Mean Platelet Volume 9.6 9.0-12.2 fL Immature Granulocyte % (Auto) 1 % Neutrophils (%) (Auto) 64 42-75 % Lymphocytes (%) (Auto) 23 12-44 % Monocytes (%) (Auto) 8 0-12 % Eosinophils (%) (Auto) 3 0-10 % Basophils (%) (Auto) 1 0-10 % Neutrophils # (Auto) 6.2 1.8-7.8 10^3/uL Lymphocytes # (Auto) 2.2 1.0-4.0 10^3/uL Monocytes # (Auto) 0.8 0.0-1.0 10^3/uL Eosinophils # (Auto) 0.3 0.0-0.3 10^3/uL Basophils # (Auto) 0.1 0.0-0.1 10^3/uL Immature Granulocyte # (Auto) 0.1 0.0-0.1 10^3/uL Prothrombin Time 12.6 12.2-14.7 SEC INR Comment 0.9 0.8-1.4 Activated Partial Thromboplast Time 31 24-35 SEC Sodium Level 140 135-145 MMOL/L Potassium Level 5.2 H 3.6-5.0 MMOL/L Chloride Level 104 98-107 MMOL/L Carbon Dioxide Level 21 21-32 MMOL/L Anion Gap 15 H 5-14 MMOL/L Blood Urea Nitrogen 29 H 7-18 MG/DL Creatinine 1.28 0.60-1.30 MG/DL Estimat Glomerular Filtration Rate 48 BUN/Creatinine Ratio 23 Glucose Level 289 H 70-105 MG/DL Calcium Level 9.1 8.5-10.1 MG/DL Corrected Calcium 9.2 8.5-10.1 MG/DL Total Bilirubin 0.4 0.1-1.0 MG/DL Aspartate Amino Transf (AST/SGOT) 18 5-34 U/L Alanine Aminotransferase (ALT/SGPT) 19 0-55 U/L Alkaline Phosphatase 117 40-136 U/L Total Protein 7.2 6.4-8.2 GM/DL Albumin 3.9 3.2-4.5 GM/DL My Orders Orders - LIZA YOO Cbc With Automated Diff (05/15/21 21:02) Comprehensive Metabolic Panel (05/15/21 21:02) Ekg Tracing (05/15/21 21:02) Chest 1 View, Ap/Pa Only (05/15/21 21:02) Hip, Left, 2 Views (05/15/21 21:02) Partial Thromboplastin Time (05/15/21 21:02) Protime With Inr (05/15/21 21:02) Morphine Injection (Morphine Injection (05/15/21 21:15) Fentanyl Inj (Sublimaze Injection) (05/15/21 21:44) Ed Admission (Communication) (05/15/21 21:45) Medications Given in ED Current Medications Medications Dose Ordered Sig/Pearl Route Start Time Stop Time Status Last Admin Dose Admin Morphine Sulfate 4 mg ONCE ONCE IVP 05/15/21 21:15 05/15/21 21:16 DC 05/15/21 21:10 4 MG Vital Signs/I&O 05/15/21 21:00 Temp 36.6 Pulse 71 Resp 18 B/P (MAP) 182/94 (123) Pulse Ox 93 O2 Delivery Room Air Comment Sinus rhythm, 69 bpm, T wave inversion anterior septal leads, QRS duration 92 MS, QTc 426 MS. Departure Communication (PCP) Patient was discussed with Dr. Orellana orthopedic who recommends surgery tomorrow. Does have a history of coronary artery disease currently on Plavix. Cardiac stent last November. This was mechanical fall. She has no other complaints. She is neurologically intact. Left leg neurovascular intact. Patient in moderate bout of pain was given IV pain medication here morphine and fentanyl. Recommends hospitalist admit clear for surgery. Patient was placed on schedule for Dr. Orellana gamma nail left hip. Impression Primary Impression: Hip fracture, left Disposition: ADMITTED INPATIENT Condition: Stable Admissions Decision to Admit Reason: Admit from ER (General) Decision to Admit/Date: May 15, 2021 Time/Decision to Admit Time: 21:42 Departure-Patient Inst. Referrals: CARMEL NIELSEN MD (PCP/Family) Primary Care Physician LIZA YOO May 15, 2021 21:07
[2021-05-15 21:13] LABS: BASOPHILS # (AUTO) 0.1 10^3/uL (0.0-0.1); BASOPHILS % (AUTO) 1 % (0-10); EOSINOPHILS # (AUTO) 0.3 10^3/uL (0.0-0.3); EOSINOPHILS % (AUTO) 3 % (0-10); HEMATOCRIT 44 % (35-52); LYMPHOCYTES # (AUTO) 2.2 10^3/uL (1.0-4.0); LYMPHOCYTES % (AUTO) 23 % (12-44); MEAN CORPUSCULAR HEMOGLOBIN 28 pg (25-34); MEAN CORPUSCULAR HGB CONC 32 g/dL (32-36); MEAN CORPUSCULAR VOLUME 86 fL (80-99); MEAN PLATELET VOLUME 9.6 fL (9.0-12.2); MONOCYTES # (AUTO) 0.8 10^3/uL (0.0-1.0); MONOCYTES % (AUTO) 8 % (0-12); NEUTROPHILS # (AUTO) 6.2 10^3/uL (1.8-7.8); NEUTROPHILS % (AUTO) 64 % (42-75); PLATELET COUNT 357 10^3/uL (130-400); WHITE BLOOD COUNT 9.6 10^3/uL (4.3-11.0)
[2021-05-15] MEDS ORDERED: morphine INJ 10 MG/ML 1ML (SYR OR VIAL) IVP ONE (21:15)
[2021-05-15 21:24] LABS: ALBUMIN 3.9 GM/DL (3.2-4.5); INR 0.9 (0.8-1.4); POTASSIUM 5.2 MMOL/L (3.6-5.0); PROTHROMBIN TIME PATIENT 12.6 SEC (12.2-14.7)
[2021-05-15 21:25] LABS: CALCIUM 9.1 MG/DL (8.5-10.1)
[2021-05-15 21:26] LABS: TOTAL PROTEIN 7.2 GM/DL (6.4-8.2)
[2021-05-15 21:28] LABS: BILIRUBIN,TOTAL 0.4 MG/DL (0.1-1.0)
[2021-05-15 21:30] LABS: CREATININE SERUM 1.28 MG/DL (0.60-1.30)
--- NOTE | 2021-05-15 21:39 | Diagnostic Imaging Report ---
CLINICAL HISTORY: Fall. Left hip pain. COMPARISON: None. TECHNIQUE: 2 views of the left hip. FINDINGS: Acute comminuted intertrochanteric fracture is visualized involving the proximal left femur. No dislocation of the left hip is seen. No fracture is visualized in the included left pelvis. IMPRESSION: Acute comminuted intertrochanteric fracture involving the proximal left femur. Dictated by: Dictated on workstation # [id number]
--- NOTE | 2021-05-15 21:39 | Diagnostic Imaging Report ---
EXAMINATION: Chest 1 view. HISTORY: Preop clearance. Fall. COMPARISON: 12/18/2020. FINDINGS: The lung volumes are normal. No focal consolidation is seen. No large pleural effusion or pneumothorax is seen. The cardiomediastinal silhouette is normal in size and contour. A loop recorder is seen overlying the cardiac silhouette. No acute osseous abnormality is seen. IMPRESSION: No acute pleuroparenchymal process. Dictated by: Dictated on workstation # [id number]
[2021-05-15] MEDS ORDERED: fentaNYL INJ 100 MCG/2 ML AMP IVP STA (21:44)
[2021-05-15 22:35] VITALS: BP 172/74
[2021-05-15] MEDS: fentaNYL INJ 100 MCG/2 ML AMP IVP PRN (23:04)
[2021-05-15] MEDS: NS IV 1000 ML 1,000 ML IV SCH (23:25)
[2021-05-16] VITALS (10 sets, daily range): BP systolic 116–146; BP diastolic 59–87
[2021-05-16] MEDS: fentaNYL INJ 100 MCG/2 ML AMP IVP PRN ×2 (00:01→01:07)
[2021-05-16] MEDS: HYDROmorphone 2 MG/ML VIAL (DILAUDID) IV PRN ×5 (02:13→22:39)
[2021-05-16 05:58] LABS: HEMATOCRIT 37 % (35-52); MEAN CORPUSCULAR HEMOGLOBIN 28 pg (25-34); MEAN CORPUSCULAR HGB CONC 32 g/dL (32-36); MEAN CORPUSCULAR VOLUME 88 fL (80-99); PLATELET COUNT 312 10^3/uL (130-400); WHITE BLOOD COUNT 10.9 10^3/uL (4.3-11.0)
[2021-05-16 06:20] LABS: POTASSIUM 5.2 MMOL/L (3.6-5.0)
[2021-05-16 06:22] LABS: CALCIUM 8.5 MG/DL (8.5-10.1)
[2021-05-16 06:26] LABS: CREATININE SERUM 1.07 MG/DL (0.60-1.30)
[2021-05-16] MEDS: NS IV 1000 ML 1,000 ML IV SCH ×3 (06:30→22:30)
[2021-05-16] MEDS: inSUlin ASPART (NovoLOG) 1 UNIT/0.01 ML (CHARGE PER UNIT) SC SCH ×4 (06:34→21:00)
--- NOTE | 2021-05-16 07:07 | History & Physical-Hospitalist ---
SAGRARIO YUNG MED STUDENT 05/16/21 0707: History of Present Illness HPI/Chief Complaint cc: mechanical fall Patient is a 61-year-old female with a history of stroke, coronary artery disease, and 2x stents currently on Plavix who presents ED with a chief complaint of left hip pain. Patient caught her foot on the carport 2-3 inches tall and landed on her L hip. She heard a crack and was unable to stand. She denies hitting her head or LOC. She denies any other injuries. She states she has been week on her L side since her stroke in 2019. She has a history of falls, previous one noted last year on ice. She received 50 IM fentanyl in route to ED. Source: patient Exam Limitations: no limitations Date Seen 05/16/21 Attending Physician Mira Vance MD PCP Yanira Johnson MD Referring Physician Date of Admission May 15, 2021 at 21:46 Home Medications & Allergies Home Medications Reviewed patient Home Medication Reconciliation performed by pharmacy medication reconciliations electrical maintenance technician and/or nursing. Patients Allergies have been reviewed. Allergies Allergies Coded Allergies cefdinir (Verified Adverse Reaction, Mild, NAUSEA, yeast infection, 11/08/19) Cephalosporins (Verified Adverse Reaction, Unknown, yeast infections, 11/08/19) Past Euimjcg-Wripqf-Oiadct Hx Patient Social History Tobacco Use?: Yes Tobacco type used: Cigarettes Smoking Status: Former Smoker (1 pack per year since the age of 20 until 2019. ) Smokeless Tobacco Frequency: Never a User Use of E-Cig and/or Vaping dev: No Substance use?: No Alcohol Use?: Yes Alcohol type: Beer Alcohol Frequency: Once in a while Pt feels they are or have been: No Immunizations Up To Date Date of Influenza Vaccine: Nov 15, 2020 First/Initial COVID19 Vaccinat: may 01, 2020 Second COVID19 Vaccination Shane: may 30, 2020 Tetanus Booster (TDap): Unknown Hepatitis A: No Hepatitis B: No PED Vaccines UTD: No Date of Pneumonia Vaccine: Jul 30, 2009 Seasonal Allergies Seasonal Allergies: Yes Current Status status: No status: No Advance Directives: Unable to obtain Communicates: Verbally Primary Language: Emirati Preferred Spoken Language: Emirati Is interpretation needed?: No Implanted or Applied Medical D: Stents Past Medical History Surgeries: Amputation, Appendectomy, Bladder Surgery, Cardiac, Section, Coronary Stent, Gallbladder, Renal Currently Using CPAP: No Currently Using BIPAP: No Coronary Artery Disease, Hypertension, Irregular Heartbeat Neuropathy, Stroke RECEIVING LEAD History: Menopausal Sexually Transmitted Disease: No HIV/AIDS: No UTI-Chronic Colitis, Gastroesophageal Reflux, Gall Bladder Disease Amputee Diabetes, Insulin dep Loss of Vision: Denies Hearing Impairment: Denies Anxiety, Depression Blood Disorders: No Adverse Reaction/Blood Tranf: No Family Medical History Arthritis Cataracts Diabetes mellitus 19 MOTHER FH: lupus 19 MOTHER Hypercholesterolemia Hypertension No Family History of: AIDS Abdominal aortic aneurysm [place]'s disease Alcoholism Alzheimer's disease Aphasia Asthma Cancer of mouth Cardiovascular disease Colon cancer Completed stroke Congenital disease Congenital heart disease Coronary thrombosis Cystic fibrosis Deafness or hearing loss Dementia Drug abuse Dysphasia Fibrocystic disease of breast Gastroenteritis Glaucoma Headache disorder Infertility Kidney disease Myocardial infarction Neoplasm Not obtainable due to adoption Osteoporosis Parkinson's disease Prostate cancer Psychosocial problem Respiratory disorder Seizure disorder Severe allergy Thyroid disease Tuberculosis Visual disorder Diabetes, Hypertension, Other Conditions/Hx ADDITIONAL PAST MEDICAL/SURGICAL HISTORY: -RIGHT GREAT TOE AMPUTATION 08/02/2019 DUE TO OSTEOMYELITIS-DONE BY DR. SMITH -PERIPHERAL ANGIOGRAM 08/03/[address] GARRISON:FINDINGS: No significant disease in the distal abdominal aorta. Nonselective angiogram of the renal arteries showed bilateral patent renal arteries. Patent bilateral common iliac artery, external iliac artery, common femoral artery. Mild proximal left SFA disease. Patent left popliteal artery and three-vessel runoff below the knee. Patent right SFA, popliteal artery and three-vessel runoff below the knee. CONCLUSION: Minimal PAD. Continue secondary prevention measures. -LOOP RECORDER -CARDIAC CATH WITH STENT TO FIRST 2013 -KIDNEY AND BLADDER SURGERY CHILD -04/10/20--FLEXIBLE SIGMOIDOSCOPY BY DR. SMITH - -APPENDECTOMY -CHOLECYSTECTOMY Review of Systems Constitutional: No chills, No dizziness, No fever; weakness EENTM: No ear pain, No blurred vision, No double vision, No eye pain Respiratory: No dyspnea on exertion, No short of breath Cardiovascular: No chest pain Gastrointestinal: No abdominal pain Genitourinary: No decreased output, No dysuria Musculoskeletal: No back pain; other (L hip pain) Skin: No change in color (no bruising noted) Physical Exam Physical Exam Vital Signs Vital Signs - First Documented 05/15/21 05/16/21 21:00 03:00 Temp 36.6 Pulse 71 Resp 18 B/P (MAP) 182/94 (123) Pulse Ox 93 O2 Delivery Room Air O2 Flow Rate 3.50 Capillary Refill : Less Than 3 Seconds Height, Weight, BMI Height: 5'8.00" Weight: 166lbs. 0.0oz. [id number]; 32.41 BMI Method:Stated General Appearance: No Apparent Distress, WD/WN HEENT: PERRL/EOMI Neck: Non Tender, Supple Respiratory: Lungs Clear Gastrointestinal: Normal Bowel Sounds, Non Tender, Distended Rectal: Deferred Extremity: No Inflammation, No Swelling; Other (tender L hip) Neurologic/Psychiatric: Alert, Oriented x3, No Motor/Sensory Deficits, Normal Mood/Affect Skin: Normal Color, Warm/Dry Results Results/Procedures Labs Laboratory Tests 05/15/21 21:05 05/16/21 05:00 Patient resulted labs reviewed. Assessment/Plan Admission Diagnosis Reason for Inpatient Admission: mechanical fall Assessment and Plan Mechanical fall * pain medication PRN * neurocheck * fall precautions * oxygen as needed * NPO after midnight last night for surgery * Ortho Consulted - appreciate their help * Surgery planned for later this morning * Cardiology Consulted - appreciate their help * on dual antiplatelet therapy, 2x stents, previous stroke * Physical therapy consult - appreciate their help Hypertension * resume home medications as appropriate Type 2 Diabetes * SSI * resume home medications as appropriate MIRA VANCE MD 05/16/21 1142: History of Present Illness Time Seen by a Provider: 08:40 Past Nygnupt-Vjzxuc-Uodxod Hx Family Medical History Arthritis Cataracts Diabetes mellitus 19 MOTHER FH: lupus 19 MOTHER Hypercholesterolemia Hypertension No Family History of: AIDS Abdominal aortic aneurysm [place]'s disease Alcoholism Alzheimer's disease Aphasia Asthma Cancer of mouth Cardiovascular disease Colon cancer Completed stroke Congenital disease Congenital heart disease Coronary thrombosis Cystic fibrosis Deafness or hearing loss Dementia Drug abuse Dysphasia Fibrocystic disease of breast Gastroenteritis Glaucoma Headache disorder Infertility Kidney disease Myocardial infarction Neoplasm Not obtainable due to adoption Osteoporosis Parkinson's disease Prostate cancer Psychosocial problem Respiratory disorder Seizure disorder Severe allergy Thyroid disease Tuberculosis Visual disorder Physical Exam Physical Exam General Appearance: No Apparent Distress, WD/WN Respiratory: Lungs Clear Cardiovascular: Regular Rate, Rhythm, No Edema, Normal Peripheral Pulses (2+ pedal pulses bilaterally) Gastrointestinal: Normal Bowel Sounds, Non Tender Extremity: Other (left leg in external rotation, shortened compared to right leg) Skin: Normal Color, Warm/Dry Assessment/Plan Admission Diagnosis See problem list Admission Status: Inpatient Order (span 2 midnights) Reason for Inpatient Admission: Hip fracture with multiple comorbidities Diagnosis/Problems Diagnosis/Problems (1) Fracture, intertrochanteric, left femur Status: Acute Assessment & Plan: Orthopedic surgery consulted, appreciate recommendations, plan for operative treatment today Qualifiers: Encounter type: initial encounter Fracture type: closed (2) Diabetes Status: Chronic Assessment & Plan: Resume home long acting insulin, sliding scale insulin as needed. Diabetic diet when eating. Last A1c in the 7s, but was in October 2020, will recheck. Qualifiers: Diabetes mellitus type: type 2 Diabetes mellitus intermediate accountant insulin use: with correction use Diabetes mellitus complication status: with hyperglycemia Qualified Codes: E11.65 - Type 2 diabetes mellitus with hyperglycemia; Z79.4 - skilled nursing (current) use of insulin (3) CAD (coronary artery disease) Status: Chronic Assessment & Plan: Stenting 10/2020, on dual antiplatelet therapy, will consult Cardiology for recommendations related to surgery. Qualifiers: Coronary Disease-Associated Artery/Lesion type: [place] artery [place] vs. transplanted heart: [place] heart Associated angina: without angina Qualified Codes: I25.10 - Atherosclerotic heart disease of [place] coronary artery without angina pectoris (4) HTN (hypertension) Status: Chronic Assessment & Plan: Resume home medications. Qualifiers: Hypertension type: primary hypertension Qualified Codes: I10 - Essential (primary) hypertension (5) Cerebrovascular small vessel disease Status: Chronic (6) History of stroke Status: Chronic (7) DVT prophylaxis Status: Acute Assessment & Plan: Will start post-operatively when okay with Ortho. Supervisory-Addendum Brief Verification & Attestation Participated in pt care: history, MDM, physical Personally performed: exam, history Care discussed with: Medical Student Procedures: n/a I personally saw and examined patient and repeated the history. See my notes for my exam findings and assessment and plan. SAGRARIO YUNG MED STUDENT May 16, 2021 07:07 MIRA VANCE MD May 16, 2021 11:42
--- NOTE | 2021-05-16 07:44 | Consultation - Ortho ---
Consult - Ortho Subjective Date of Exam 05/16/21 Chief Complaint Left Hip Injury HPI/Events since last exam fall from standing height yesterday, noted a pop and unable to ambulate, seen in ER and diagnosed with displaced left intertrochanteric femur fracture, I was asked to manage the fracture Medical, Surgical History see admit Social History see admit Family History see admit Review of Systems - Allergies: Coded Allergies: cefdinir (Verified Adverse Reaction, Mild, NAUSEA, yeast infection, 11/08/19) Cephalosporins (Verified Adverse Reaction, Unknown, yeast infections, 11/08/19) Home Meds Active Scripts Metformin HCl (Metformin HCl ER) 500 Mg Tab.er.24, 500 MG PO BID, #1 TAB Hold Metformin for 48 hours Prov:JAVIER HERNANDEZ MD 12/18/20 Atorvastatin Calcium (Atorvastatin Calcium) 20 Mg Tablet, 20 MG PO HS, #20 TAB 4 Refills Prov:JAVIER HERNANDEZ MD 12/18/20 Ezetimibe (Ezetimibe) 10 Mg Tablet, 10 MG PO HS, #30 TAB 4 Refills Prov:JAVIER HERNANDEZ MD 12/18/20 Reported Medications L.acidoph & Paracasei,B.lactis (Probiotic) 1 Each Capsule, 1 EACH PO DAILY, CAP 12/18/20 Cholecalciferol (Vitamin D3) (Vitamin D3) 125 Mcg Tablet, 125 MCG PO DAILY, TAB 12/18/20 Ascorbate Calcium (Vitamin C) 500 Mg Tablet, 500 MG PO DAILY, TAB 12/18/20 Acetaminophen (Tylenol Arthritis) 650 Mg Tablet.er, 1300 MG PO Q8H PRN for PAIN- MILD (1-4), TAB 12/18/20 Multivitamin (Multivitamin) 1 Each Tablet, 1 EACH PO DAILY, TAB 12/18/20 Citalopram Hydrobromide (Celexa) 20 Mg Tablet, 20 MG PO DAILY, TAB 12/18/20 Exenatide Microspheres (Bydureon Bcise) 2 Mg/0.85 Ml Auto.injct, 2 MG SQ SUN, ML 06/28/20 Metoprolol Succinate (Metoprolol Succinate) 25 Mg Tab.er.24h, 25 MG PO DAILY, TAB 04/02/20 Pantoprazole Sodium (Protonix) 40 Mg Tablet.dr, 40 MG PO DAILY, TAB 11/08/19 Insulin Detemir (Levemir Flextouch) 100 Unit/1 Ml Insuln.pen, 25 UNIT SQ HS, EA 08/01/19 Insulin Aspart (Novolog Flexpen) 300 Units/3 Ml Solution, 15 UNITS SQ AC, EA 08/01/19 Pregabalin (Pregabalin) 100 Mg Capsule, 100 MG PO BID, CAP 08/01/19 Clopidogrel Bisulfate (Plavix) 75 Mg Tablet, 75 MG PO DAILY, TAB 08/01/19 Aspirin (Aspirin EC) 81 Mg Tablet.dr, 81 MG PO DAILY, TAB 09/05/18 Objective Exam Left Hip: Shortened, externally rotated, +DF of ankle, sensation grossly intact to light touch, distal pulses palpable Vital Signs Vital Signs Date Time Temp Pulse Resp B/P (MAP) Pulse Ox O2 Delivery O2 Flow Rate FiO2 05/16/21 07:17 36.6 70 20 126/59 (81) 93 Nasal Cannula 3.50 05/16/21 03:00 37.0 70 16 135/82 (99) 94 Nasal Cannula 3.50 05/16/21 00:03 36.5 75 20 146/83 (104) 92 Room Air 05/15/21 22:35 36.4 69 16 172/74 (106) 92 Room Air 05/15/21 22:35 92 Room Air 05/15/21 22:11 36.7 69 18 149/81 95 Room Air 05/15/21 21:00 36.6 71 18 182/94 (123) 93 Room Air I & O 05/16/21 07:00 Intake Total 1000 ml Output Total 850 ml Balance 150 ml Lab Results Laboratory Tests 05/15/21 21:05: White Blood Count 9.6, Red Blood Count 5.08, Hemoglobin 14.0, Hematocrit 44, Mean Corpuscular Volume 86, Mean Corpuscular Hemoglobin 28, Mean Corpuscular Hemoglobin Concent 32, Red Cell Distribution Width 13.7, Platelet Count 357, Mean Platelet Volume 9.6, Immature Granulocyte % (Auto) 1, Neutrophils (%) (Auto) 64, Lymphocytes (%) (Auto) 23, Monocytes (%) (Auto) 8, Eosinophils (%) (Auto) 3, Basophils (%) (Auto) 1, Neutrophils # (Auto) 6.2, Lymphocytes # (Auto) 2.2, Monocytes # (Auto) 0.8, Eosinophils # (Auto) 0.3, Basophils # (Auto) 0.1, Immature Granulocyte # (Auto) 0.1, Prothrombin Time 12.6, INR Comment 0.9, Activated Partial Thromboplast Time 31, Sodium Level 140, Potassium Level 5.2H, Chloride Level 104, Carbon Dioxide Level 21, Anion Gap 15H, Blood Urea Nitrogen 29H, Creatinine 1.28, Estimat Glomerular Filtration Rate 48, BUN/Creatinine Ratio 23, Glucose Level 289H, Calcium Level 9.1, Corrected Calcium 9.2, Total Bilirubin 0.4, Aspartate Amino Transf (AST/SGOT) 18, Alanine Aminotransferase (ALT/SGPT) 19, Alkaline Phosphatase 117, Total Protein 7.2, Albumin 3.9 05/16/21 05:00: White Blood Count 10.9, Red Blood Count 4.22, Hemoglobin 12.0, Hematocrit 37, Mean Corpuscular Volume 88, Mean Corpuscular Hemoglobin 28, Mean Corpuscular Hemoglobin Concent 32, Red Cell Distribution Width 13.8, Platelet Count 312, Mean Platelet Volume 10.0, Sodium Level 141, Potassium Level 5.2H, Chloride Level 107, Carbon Dioxide Level 21, Anion Gap 13, Blood Urea Nitrogen 29H, Creatinine 1.07, Estimat Glomerular Filtration Rate 59, BUN/Creatinine Ratio 27, Glucose Level 329H, Calcium Level 8.5 Imaging 2 views of the left hip dated 05/15/21 were reviewed from PACS and demonstrated a displaced left intertrochanteric femur fracture Assessment and Plan Assessment Left Intertrochanteric Femur Fracture Problem List Left Intertrochanteric Femur Fracture Plan I have recommended intramedullary nailing of the left IT femur fx; discussed the nature of the procedure and the postoperative course. Discussed timeline for healing. Discussed risks and benefits. Questions were answered; consent to be obtained. Final Diagonsis Left Intertrochanteric Femur Fracture Level of the visit: Level 3 (preop) NYLA DIAZ MD May 16, 2021 07:44
--- NOTE | 2021-05-16 10:08 | Consultation-Cardiology ---
HPI-Cardiology Cardiology Consultation Date of Consultation 05/16/21 Date of Admission Time Seen by Provider: 10:04 Indication: Left hip fracture HPI 61 years old lady with history of CVA, coronary artery disease, sustained a fall resulted in left hip fracture. Did not have a syncope, patient reported that she has tripped and fell. Had immediate pain and was unable to get up. X-ray confirmed left femoral fracture. Dr. Orellana was consulted and I was consulted for evaluation preoperatively. She denied any chest pain, no palpitation, no shortness of breath. No syncope Home Medications & Allergies Allergies: Coded Allergies: cefdinir (Verified Adverse Reaction, Mild, NAUSEA, yeast infection, 11/08/19) Cephalosporins (Verified Adverse Reaction, Unknown, yeast infections, 11/08/19) Home Medication List Reviewed: Yes ESJ-[id number]-Lxjyqf Hx Patient Social History Marital Status: Smoking Status: Former Smoker (1 pack per year since the age of 20 until 2019. ) Type Used: Cigarettes 2nd Hand Smoke Exposure: Yes Recent Hopitalizations: Yes (JULY 2019-) Have you traveled recently?: No Alcohol Use?: Yes Immunizations Up To Date Tetanus Booster (TDap): Less than 5yrs Date of Pneumonia Vaccine: Jul 30, 2009 Date of Influenza Vaccine: Nov 15, 2020 Past Medical History Discussed below Family Medical History Significant Family History: Diabetes, Hypertension, Other Conditions/Hx Family History: Arthritis Cataracts Diabetes mellitus 19 MOTHER FH: lupus 19 MOTHER Hypercholesterolemia Hypertension No Family History of: AIDS Abdominal aortic aneurysm [place]st's disease Alcoholism Alzheimer's disease Aphasia Asthma Cancer of mouth Cardiovascular disease Colon cancer Completed stroke Congenital disease Congenital heart disease Coronary thrombosis Cystic fibrosis Deafness or hearing loss Dementia Drug abuse Dysphasia Fibrocystic disease of breast Gastroenteritis Glaucoma Headache disorder Infertility Kidney disease Myocardial infarction Neoplasm Not obtainable due to adoption Osteoporosis Parkinson's disease Prostate cancer Psychosocial problem Respiratory disorder Seizure disorder Severe allergy Thyroid disease Tuberculosis Visual disorder Review of Systems-General Review of Systems Constitutional: No chills, No dizziness, No fever; weakness EENTM: No ear pain, No blurred vision, No double vision, No eye pain Respiratory: see HPI; No cough, No dyspnea on exertion, No hemoptysis, No orthopnea, No phlegm, No short of breath, No stridor, No wheezing, No other Cardiovascular: see HPI; No chest pain, No edema, No Hx of Intervention, No palpitations, No syncope, No vascular heart diseas, No other Gastrointestinal: No abdominal pain Genitourinary: No decreased output, No dysuria Musculoskeletal: No back pain; other (L hip pain) Skin: No change in color (no bruising noted) All Other Systems Reviewed Negative Unless Noted: Yes Reviewed Test Results Reviewed Test Results Lab Laboratory Tests Test 05/15/21 21:05 05/16/21 05:00 Range/Units White Blood Count 9.6 10.9 4.3-11.0 10^3/uL Red Blood Count 5.08 4.22 3.80-5.11 10^6/uL Hemoglobin 14.0 12.0 11.5-16.0 g/dL Hematocrit 44 37 35-52 % Mean Corpuscular Volume 86 88 80-99 fL Mean Corpuscular Hemoglobin 28 28 25-34 pg Mean Corpuscular Hemoglobin Concent 32 32 32-36 g/dL Red Cell Distribution Width 13.7 13.8 10.0-14.5 % Platelet Count 357 312 130-400 10^3/uL Mean Platelet Volume 9.6 10.0 9.0-12.2 fL Immature Granulocyte % (Auto) 1 % Neutrophils (%) (Auto) 64 42-75 % Lymphocytes (%) (Auto) 23 12-44 % Monocytes (%) (Auto) 8 0-12 % Eosinophils (%) (Auto) 3 0-10 % Basophils (%) (Auto) 1 0-10 % Neutrophils # (Auto) 6.2 1.8-7.8 10^3/uL Lymphocytes # (Auto) 2.2 1.0-4.0 10^3/uL Monocytes # (Auto) 0.8 0.0-1.0 10^3/uL Eosinophils # (Auto) 0.3 0.0-0.3 10^3/uL Basophils # (Auto) 0.1 0.0-0.1 10^3/uL Immature Granulocyte # (Auto) 0.1 0.0-0.1 10^3/uL Prothrombin Time 12.6 12.2-14.7 SEC INR Comment 0.9 0.8-1.4 Activated Partial Thromboplast Time 31 24-35 SEC Sodium Level 140 141 135-145 MMOL/L Potassium Level 5.2 H 5.2 H 3.6-5.0 MMOL/L Chloride Level 104 107 98-107 MMOL/L Carbon Dioxide Level 21 21 21-32 MMOL/L Anion Gap 15 H 13 5-14 MMOL/L Blood Urea Nitrogen 29 H 29 H 7-18 MG/DL Creatinine 1.28 1.07 0.60-1.30 MG/DL Estimat Glomerular Filtration Rate 48 59 BUN/Creatinine Ratio 23 27 Glucose Level 289 H 329 H 70-105 MG/DL Calcium Level 9.1 8.5 8.5-10.1 MG/DL Corrected Calcium 9.2 8.5-10.1 MG/DL Total Bilirubin 0.4 0.1-1.0 MG/DL Aspartate Amino Transf (AST/SGOT) 18 5-34 U/L Alanine Aminotransferase (ALT/SGPT) 19 0-55 U/L Alkaline Phosphatase 117 40-136 U/L Total Protein 7.2 6.4-8.2 GM/DL Albumin 3.9 3.2-4.5 GM/DL Physical Exam Physical Exam Vital Signs Vital Signs - First Documented 05/15/21 05/16/21 21:00 03:00 Temp 36.6 Pulse 71 Resp 18 B/P (MAP) 182/94 (123) Pulse Ox 93 O2 Delivery Room Air O2 Flow Rate 3.50 Capillary Refill : Less Than 3 Seconds Height, Weight, BMI Height: 5'8.00" Weight: 166lbs. 0.0oz. [id number]; 32.41 BMI Method:Stated General Appearance: No Apparent Distress, WD/WN HEENT: PERRL/EOMI Neck: Non Tender, Supple Respiratory: Lungs Clear Cardiovascular: Regular Rate, Rhythm, No Murmur Gastrointestinal: Normal Bowel Sounds, Non Tender, Distended Rectal: Deferred Extremity: No Inflammation, No Swelling; Other (tender L hip) Neurologic/Psychiatric: Alert, Oriented x3, No Motor/Sensory Deficits, Normal Mood/Affect Skin: Normal Color, Warm/Dry A/P-Cardiology Assessment/Plan Left hip fracture, Dr. Orellana was consulted possible surgical repair. Coronary artery disease, History of cardiac catheterization in 2013 with the stent using Promus drug- eluting stent 2.25 x 16mm to the first diagonal branch, had moderate disease in the LAD with normal FFR. LHC on 12/18/20 showing severe stenosis in the distal LAD with successful primary stenting using skypoint 2.25 x23mm, moderate stenosis in the mid LAD, patent stent in the diagonal artery, nonobstructive dz. Moderate stenosis in the mid RCA, FFR 0.86. I will discontinue Plavix. Maintained on aspirin. 2D Echo done August 2018 showing EF 55-65% History of CVA in 2019, mild residual left-sided weakness. Has been monitored and doing well History of loop implant done in August [address] Awad, monitoring showed brief episode of atrial fibrillation in the remote past. No further episodes noted. Hypertension, controlled continue on current medication Hyperlipidemia, maintained on statin. Unable to tolerate higher dose of statin d/t myalgias, was unable to tolerate Zetia d/t myalgias. Was started on Repatha DM, management per PCP. 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 ABIs done August 2020 WNL. Follows with wound care, reports wound almost completely healed. History of tobaccoism, stopped in the remote past. Preoperative cardiac evaluation, patient is considered at intermediate risk for perioperative cardiovascular complication, decision regarding the surgery, risk versus benefit is deferred to the surgeon. May hold aspirin and Plavix for the surgery and restart aspirin postoperatively when deemed reasonable by the surgeon. JAVIER HERNANDEZ MD May 16, 2021 10:08
[2021-05-16] MEDS: LACTATED RINGERS 1,000 ML IV PRN ×2 (10:29→12:20)
[2021-05-16] MEDS ORDERED: CLINDAMYCIN 600 MG/50 ML IVPB 50 ML IV ONE (10:30)
[2021-05-16] MEDS ORDERED: LIDOCAINE PF 2% 5 ML (XYLOCAINE) VIAL ONE (10:37)
[2021-05-16] MEDS ORDERED: fentaNYL INJ 100 MCG/2 ML AMP ONE (10:37)
[2021-05-16] MEDS ORDERED: proPOfol 200 MG/20 ML (DIPRIVAN) VIAL IV ONE (10:37)
[2021-05-16] MEDS ORDERED: MIDAZOLAM 2 MG/2 ML (VERSED) VIAL ONE (10:37)
[2021-05-16] MEDS ORDERED: ONDANSETRON 4 MG/2 ML (SDV) Z0FRAN ONE (10:37)
[2021-05-16] MEDS ORDERED: ESMOLOL 100 MG/10 ML (BREVIBLOC) VIAL ONE (11:29)
[2021-05-16] MEDS ORDERED: SEVOFLURANE (ULTANE) 15 ML INHAL SOLN ONE (12:17)
--- NOTE | 2021-05-16 12:20 | Operative Report - Ortho ---
Operative Report Surgeon (s)/Weld Inspector (s) Surgeon NYLA DIAZ MD Weld Inspector n/a Pre-Operative Diagnosis Left Intertrochanteric Femur Fracture Post-Operative Diagnosis same Operative Report Date of Procedure: May 16, 2021 Name of Procedure Performed: Intramedullary Nailing of Left Intertrochanteric Femur Fracture Description & Findings After obtaining informed consent and marking the patient in the preoperative holding area, the patient was administered IV antibiotics and taken to the operating room. Anesthesia was induced. Patient was transferred to the fracture table. Surgical timeout was taken. The left lower extremity was placed in the traction spar and the right was placed in the well leg gardiner. The left lower extremity was prepped and draped in the usual sterile fashion. Incision was made just proximal to the greater trochanter. Blunt dissection was performed down to the tip of the trochanter. A guide wire was placed through a trochanteric entry point. Position of the wire was confirmed using C-arm. An entry reamer was then placed over the guidewire and reamed to the level of the lesser trochanter. A trochanteric gamma nail with a 130 degree neck angle was selected and assembled on the back table. Nail was inserted through the trochanteric entry point and seated by hand. Position of the nail was confirmed using C-arm. A guide wire was placed for the cephalomedullary screw. Version of the wire was obtained on the lateral. Measurement was taken and the reamer was set to 105 mm. Reamer was used over the guidewire and then the cephalomedullary screw was placed. Position of the cephalomedullary screw was confirmed on C-arm. Set screw was then tightened onto the cephalomedullary screw and then backed off 1/4 turn. Attention was then turned to the distal screw and using the provided guides, a 37.5 mm screw was placed through the static portion of the distal slot. Final C arm images were obtained, demonstrated appropriate placement of hardware with adequate reduction, and were transferred to PACS. Incision sites were irrigated with normal saline. Closed subcutaneously with 2- 0 vicryl and skin was closed with carissa. Dressed with xeroform, 4x4s, ABD, and tape. Patient tolerated the procedure well and was stable to the recovery room. Anesthesia Type General Estimated Blood Loss 150 mL Specimen(s) collected/removed None NYLA DIAZ MD May 16, 2021 12:20
[2021-05-16] MEDS ORDERED: morphine INJ 10 MG/ML 1ML (SYR OR VIAL) ONE (12:39)
[2021-05-16] MEDS ORDERED: morphine INJ 10 MG/ML 1ML (SYR OR VIAL) IVP ONE (12:45)
[2021-05-16] MEDS ORDERED: ONDANSETRON 4 MG/2 ML (SDV) Z0FRAN IVP PRN (12:45)
[2021-05-16] MEDS ORDERED: MEPERIDINE (DEMEROL) INJ 50 MG/ML IVP ONE (12:45)
[2021-05-16] MEDS ORDERED: HYDROmorphone 2 MG/ML VIAL (DILAUDID) IV ONE (12:45)
--- NOTE | 2021-05-16 13:32 | Diagnostic Imaging Report ---
INDICATION: Fluoroscopy for left hip pinning. Fluoroscopy was provided in the OR during left hip surgery. Intramedullary tray and compression screw transfixed the left femoral neck fracture. Alignment is anatomic. 75 seconds of fluoroscopic time was utilized. 5 images were obtained. IMPRESSION: Fluoroscopy for left hip ORIF. Dictated by: Dictated on workstation # [id number]
--- NOTE | 2021-05-16 13:47 | Physical Therapy Progress Note ---
Therapy Progress Note Patient returned from surgery and in 10/10 left hip pain. Patient and family request to begin in the morning. RN issuing pain medication. GEORGE STEPHENS PT May 16, 2021 13:47
--- NOTE | 2021-05-16 13:54 | Occ Therapy Progress Note ---
Therapy Progress Note OT orders received and chart reviewed. Pt had surgery today. Pt and family request therapy to hold off today due to pain. OT will attempt evaluation next available date. SHAWNA DOWELL OT May 16, 2021 13:54
[2021-05-16] MEDS: PREGABALIN 100 MG (LYRICA) CAPSULE PO SCH ×2 (13:55→21:34)
[2021-05-16] MEDS: PANTOPRAZOLE 40 MG (PROTONIX) TAB PO SCH (15:25)
[2021-05-16] MEDS ORDERED: ATOR20TA66 PO (15:29)
[2021-05-17] VITALS (7 sets, daily range): BP systolic 114–144; BP diastolic 55–77
[2021-05-17] MEDS: HYDROmorphone 2 MG/ML VIAL (DILAUDID) IV PRN ×5 (02:26→22:27)
[2021-05-17] MEDS: inSUlin ASPART (NovoLOG) 1 UNIT/0.01 ML (CHARGE PER UNIT) SC SCH ×4 (05:30→20:42)
[2021-05-17] MEDS: NS IV 1000 ML 1,000 ML IV SCH (05:31)
[2021-05-17 05:49] LABS: HEMOGLOBIN 10.5 g/dL (11.5-16.0)
[2021-05-17 05:57] LABS: POTASSIUM 4.7 MMOL/L (3.6-5.0)
[2021-05-17 05:58] LABS: CALCIUM 8.3 MG/DL (8.5-10.1)
[2021-05-17 06:03] LABS: CREATININE SERUM 0.82 MG/DL (0.60-1.30)
--- NOTE | 2021-05-17 07:38 | Progress Note - Hospitalist ---
Subjective HPI/CC On Admission Date Seen by Provider: May 17, 2021 Time Seen by Provider: 10:30 cc: mechanical fall Patient is a 61-year-old female with a history of stroke, coronary artery disease, and 2x stents currently on Plavix who presents ED with a chief complaint of left hip pain. Patient caught her foot on the carport 2-3 inches tall and landed on her L hip. She heard a crack and was unable to stand. She denies hitting her head or LOC. She denies any other injuries. She states she has been week on her L side since her stroke in 2019. She has a history of fal ls, previous one noted last year on ice. She received 50 IM fentanyl in route to ED. Subjective/Events-last exam Patient doing really well Up in the chair for the first time Blood sugars in the 200s so we will start NovoLog dose Catheter still in place We will Hep-Lock IV fluid No BM yet No smoking for 2 years Review of Systems General: Fatigue, Malaise Musculoskeletal: leg pain Objective Exam Vital Signs Vital Signs Date Time Temp Pulse Resp B/P (MAP) Pulse Ox O2 Delivery O2 Flow Rate FiO2 05/18/21 03:55 37.7 102 20 163/81 (108) 91 Nasal Cannula 3.00 Capillary Refill : Less Than 3 SecondsLess Than 3 Seconds General Appearance: No Apparent Distress, WD/WN, Chronically ill Respiratory: Lungs Clear, Normal Breath Sounds Cardiovascular: Regular Rate, Rhythm Neurologic/Psychiatric: Alert, Oriented x3, Normal Mood/Affect Results/Procedures Lab Patient resulted labs reviewed. Assessment/Plan Assessment and Plan Assess & Plan/Chief Complaint Assessment: Left hip fracture status post repair postop day #1 DM on insulin Previous stroke with left-sided weakness Recorder in place Former smoker cessation 2 years ago Hyperlipidemia Hypertension CAD previous stent Postop acute blood loss anemia Plan: Pain control Hep-Lock IV Catheter DC tomorrow Inpatient rehab? MIYA CASTILLO DO May 17, 2021 07:38
[2021-05-17] MEDS: PREGABALIN 100 MG (LYRICA) CAPSULE PO SCH ×2 (08:31→20:41)
[2021-05-17] MEDS: PANTOPRAZOLE 40 MG (PROTONIX) TAB PO SCH (08:31)
[2021-05-17] MEDS ORDERED: NON-FORMULARY MEDICATION 1 EA EA (Acetaminophen (Tylenol Arthritis) 1,300 MG) PO PRN (11:45)
[2021-05-17] MEDS ORDERED: NON-FORMULARY MEDICATION 1 EA EA (Exenatide Microspheres (Bydureon Bcise) 2 MG) SQ SCH (11:45)
--- NOTE | 2021-05-17 11:59 | Physical Therapy Evaluation ---
PT Evaluation-General Medical Diagnosis Admission Date May 15, 2021 at 21:46 Medical Diagnosis: left hip fracture Onset Date: May 16, 2021 Therapy Diagnosis Therapy Diagnosis: weakness; impaired mobility Height/Weight Height (Feet): 5 Height (Inches): 8.00 Weight (Pounds): 166 Weight (Ounces): 0.0 Precautions Precautions/Isolations: Fall Prevention, Standard Precautions Weight Bear Status Right Lower Extremity: Right Full Weight Bearing Left Lower Extremity: Left Weight Bearing/Tolerated Referral Reason for Referral: Evaluation/Treatment Medical History Pertinent Medical History: CAD, DM, GERD, HTN, Smoking Additional Medical History CVA with (L) side weakness Social History Home: Single Level Current Living Status: Spouse Prior Prior Level of Function SCALE: Activities may be completed with or without assistive devices. 8-Pdsibiezrp-vufrtsp completes the activity by him/herself with no assistance from a helper. 5-Set-up or Clean-up Assistance-helper sets up or cleans up; patient completes activity. [place] assists only prior to or following the activity. 4-Supervision or Touching Assistance-helper provides verbal cues and/or touching/steadying and/or contact guard assistance as patient completes activity. Assistance may be provided throughout the activity or intermittently. 3-Partial/Moderate Assistance-helper does LESS THAN HALF the effort. [place] lifts, holds or supports trunk or limbs, but provides less than half the effort. 2-Substantial/Maximal Assistance-helper does MORE THAN HALF the effort. [place] lifts or holds trunk or limbs and provides more than half the effort. 1-Lmibudkvl-gyklao does ALL the effort. Patient does none of the effort to complete the activity. Or, the assistance of 2 or more helpers is required for the patient to complete the activity. If activity was not attempted, code reason: 7-Patient Refused. 9-Not Applicable-not attempted and the patient did not perform the activity before the current illness, exacerbation or injury. 10-Not Attempted due to Environmental Limitations-(lack of equipment, weather restraints, etc.). 88-Not Attempted due to Medical Conditions or Safety Concerns. Bed Mobility: 6 Transfers (B,C,W/C): 6 Gait: 6 Stairs: 6 PT Evaluation-Current Subjective Pt reports she tripped over her carport, fell, and fractured her hip. Objective Patient Orientation: Normal For Age Attachments: Oxygen, IV ROM/Strength ROM Lower Extremities (R) hip WFL; (L) hip flex 80 degrees, abd 15 degrees, knee and ankle WFL Strength Lower Extremities left hip 2/5, left knee 4/5 Sensory Vision: Functional Hearing: Functional Sensation Right Upper Extremit: Intact Sensation Left Upper Extremity: Intact Sensation Right Lower Extremit: Intact Sensation Left Lower Extremity: Intact Transfers Roll Left to Right (QC): 3 Sit to Lying (QC): 3 Lying to Sitting/Side of Bed(Q: 3 Sit to Stand (QC): 3 Chair/Udj-qo-Zfrfd Xfer(QC): 3 Attempted bed to chair with FWW, pt unable to advance right leg Performed stand pivot with therapist in front of patient, moderate assist bed to chair Gait Does the Patient Walk?: No and Walking Goal IS indicated Mode of Locomotion: Walk Anticipated Mode of Locomotion: Walk Distance: 2 feet Gait Assistive Device: FWW Comments/Gait Description Unable to fully wt shift to the left LE due to pain. This prevented patient from advancing the right foot forward. Insufficient strength in the UEs to unload the affected LE during stance Balance Sitting Static: Good Sitting Dynamic: Good Standing Static: Poor Standing Dynamic: Poor Assessment/Needs Pt has weakness in the left leg following ORIF of the (L) femur. She has pain limiting her left leg mobility and wt bearing ability. She will benefit from PT to restore strength and functional mobility. Rehab Potential: Good PT Jail Goals Web Editor Goals PT Web Editor Goals Time Frame: May 23, 2021 Roll Left & Right (QC): 6 Sit to Lying (QC): 6 Lying-Sitting on Side/Bed(QC): 6 Sit to Stand (QC): 6 Chair/Pyl-ng-Klrmp Xfer(QC): 4 Walk 150 ft (QC): 4 1 Step (curb) (QC): 4 PT Plan Problem List Problem List: Activity Tolerance, Functional Strength, Balance, Gait, Transfer, Bed Mobility, ROM Treatment/Plan Treatment Plan: Continue Plan of Care Treatment Duration: May 23, 2021 Frequency: 11 times per week Estimated Hrs Per Day: .25 hour per day Patient and/or Family Agrees t: Yes Time/GCodes Time In: 0950 Time Out: 1020 Total Billed Treatment Time: 30 Total Billed Treatment visit, evaluation moderate complexity 30 minutes GUILHERME VERNON PT May 17, 2021 11:59
[2021-05-17] MEDS: inSUlin ASPART (NovoLOG) 1 UNIT/0.01 ML (CHARGE PER UNIT) SQ SCH ×2 (12:03→17:48)
--- NOTE | 2021-05-17 12:37 | Cardiology Progress Note ---
Progress Note-Cardiology Events since last exam Date Seen by Provider: May 17, 2021 Time Seen by Provider: 12:34 Events since last exam We are following her for coronary artery disease in the setting of a left hip fracture now status post operative repair. She was sitting up in a chair with her family at the bedside. She denied chest pain, dyspnea at rest, palpitations, or syncope. No change in her chronic, mild intermittent ankle edema. She has already been up and took a couple of steps with assistance. Certain portions of this document may have been dictated utilizing voice recognition technology. Inherent to this technology, typographical and grammatical errors may exist. As much as I am diligent to identify and correct these mistakes, some errors may remain in the document. Vitals Last set of Vitals Signs Vital Signs 05/17/21 12:26 Temp 36.9 Pulse 77 Resp 20 B/P (MAP) 124/65 (84) Pulse Ox 94 O2 Delivery Nasal Cannula O2 Flow Rate 3.00 Labs Labs Laboratory Tests 05/17/21 05:30 Exam Vital Signs Vital Signs Date Time Temp Pulse Resp B/P (MAP) Pulse Ox O2 Delivery O2 Flow Rate FiO2 05/17/21 12:26 36.9 77 20 124/65 (84) 94 Nasal Cannula 3.00 Physical Exam General: Alert. No acute distress. She is obese. Eye: No xanthelasma. HENT: Normocephalic. Neck: Jugular venous pressure does not appear elevated. Respiratory: Lungs are clear to auscultation. Respirations are non-labored. Breath sounds are equal. Symmetrical chest wall expansion. Cardiovascular: Normal rate. Regular rhythm. 2/6 systolic ejection murmur. No gallop. Trace bilateral pretibial edema. Gastrointestinal: Soft. Normal bowel sounds. Skin: Warm. Dry. Neurologic: Alert and oriented to person, place, time. Cranial nerves 3-11 grossly intact. Psychiatric: Cooperative. Appropriate mood & affect. Labs Laboratory Tests Test 05/16/21 16:55 05/16/21 20:08 05/17/21 00:32 05/17/21 05:25 Range/Units Glucometer 226 H 215 H 211 H 204 H 70-110 MG/DL Test 05/17/21 05:30 05/17/21 11:50 Range/Units Hemoglobin 10.5 L 11.5-16.0 g/dL Hematocrit 34 L 35-52 % Sodium Level 140 135-145 MMOL/L Potassium Level 4.7 3.6-5.0 MMOL/L Chloride Level 107 98-107 MMOL/L Carbon Dioxide Level 21 21-32 MMOL/L Anion Gap 12 5-14 MMOL/L Blood Urea Nitrogen 22 H 7-18 MG/DL Creatinine 0.82 0.60-1.30 MG/DL Estimat Glomerular Filtration Rate 82 BUN/Creatinine Ratio 27 Glucose Level 201 H 70-105 MG/DL Calcium Level 8.3 L 8.5-10.1 MG/DL Glucometer 191 H 70-110 MG/DL Diagnosis/Problems Diagnosis/Problems (1) Coronary artery disease without angina pectoris Assessment & Plan: She is not having any angina. Continue aspirin, beta- kenzie and statin medication. (2) Primary hypertension Assessment & Plan: Blood pressure has been reasonably controlled on the current dose of medication which should be continued. (3) Mixed hyperlipidemia Assessment & Plan: Continue statin medication. (4) History of cerebrovascular accident Assessment & Plan: Continue aspirin and statin medication. She is not having any new neurologic complaints. (5) Type 2 diabetes mellitus with complication Assessment & Plan: This is being managed by the hospitalist. KINGSLEY DAVIS JR, MD May 17, 2021 12:37
[2021-05-17] MEDS: LACTOBACILLUS ACIDOPHILUS (PROBIOTIC) CAPSULE PO SCH ×2 (13:00→17:52)
--- NOTE | 2021-05-17 16:42 | Anesthesia-General Post-Op ---
General Patient Condition Mental Status/LOC: Same as Preop Cardiovascular: Satisfactory Nausea/Vomiting: Absent Respiratory: Satisfactory Pain: Controlled Complications: Absent Post Op Complications Complications None Follow Up Care/Instructions Patient Instructions None needed. Anesthesia/Patient Condition Patient Condition Patient is doing well, no complaints, stable vital signs, no apparent adverse anesthesia problems. No complications reported per nursing. WAN METZGER CRNA May 17, 2021 16:42
[2021-05-18 03:55] VITALS: BP 163/81
[2021-05-18] MEDS: HYDROmorphone 2 MG/ML VIAL (DILAUDID) IV PRN ×3 (04:20→20:35)
[2021-05-18] MEDS: inSUlin ASPART (NovoLOG) 1 UNIT/0.01 ML (CHARGE PER UNIT) SC SCH ×4 (06:07→21:00)
[2021-05-18] MEDS: MULTIVIT W/MINERALS TAB (THERAGRAN M) PO SCH (06:41)
[2021-05-18] MEDS: ASCORBIC ACID (VIT C) 500 MG TABLET PO SCH (06:41)
--- NOTE | 2021-05-18 06:52 | Progress Note - Hospitalist ---
Subjective HPI/CC On Admission Date Seen by Provider: May 18, 2021 Time Seen by Provider: 12:30 cc: mechanical fall Patient is a 61-year-old female with a history of stroke, coronary artery disease, and 2x stents currently on Plavix who presents ED with a chief complaint of left hip pain. Patient caught her foot on the carport 2-3 inches tall and landed on her L hip. She heard a crack and was unable to stand. She denies hitting her head or LOC. She denies any other injuries. She states she has been week on her L side since her stroke in 2019. She has a history of falls, previous one noted last year on ice. She received 50 IM fentanyl in route to ED. Subjective/Events-last exam Patient doing pretty well Slow recovery Becomes tearful ever since CVA No pain except for leg No bowel movement yet Sanchez catheter still in place Review of Systems General: Fatigue, Malaise Musculoskeletal: leg pain Objective Exam Vital Signs Vital Signs Date Time Temp Pulse Resp B/P (MAP) Pulse Ox O2 Delivery O2 Flow Rate FiO2 05/19/21 04:00 37.1 75 17 126/58 (80) 92 Nasal Cannula 3.00 Capillary Refill : Less Than 3 SecondsLess Than 3 Seconds General Appearance: No Apparent Distress, WD/WN, Chronically ill Respiratory: Lungs Clear, Normal Breath Sounds Cardiovascular: Regular Rate, Rhythm Neurologic/Psychiatric: Alert, Oriented x3 Results/Procedures Lab Laboratory Tests 05/18/21 06:42 Patient resulted labs reviewed. Assessment/Plan Assessment and Plan Assess & Plan/Chief Complaint Assessment: Left hip fracture status post repair postop day #2 DM on insulin Previous stroke with left-sided weakness Recorder in place Former smoker cessation 2 years ago Hyperlipidemia Hypertension CAD previous stent Postop acute blood loss anemia Plan: Pain control Hep-Lock IV Catheter DC tomorrow Inpatient rehab? 05/17/2021: Monitor closely MIYA CASTILLO DO May 18, 2021 06:52
[2021-05-18 06:56] LABS: BASOPHILS # (AUTO) 0.1 10^3/uL (0.0-0.1); BASOPHILS % (AUTO) 0 % (0-10); EOSINOPHILS % (AUTO) 0 % (0-10); HEMATOCRIT 33 % (35-52); HEMOGLOBIN 10.3 g/dL (11.5-16.0); LYMPHOCYTES # (AUTO) 1.3 10^3/uL (1.0-4.0); LYMPHOCYTES % (AUTO) 10 % (12-44); MEAN CORPUSCULAR HEMOGLOBIN 29 pg (25-34); MEAN CORPUSCULAR HGB CONC 31 g/dL (32-36); MEAN CORPUSCULAR VOLUME 92 fL (80-99); MEAN PLATELET VOLUME 9.9 fL (9.0-12.2); MONOCYTES # (AUTO) 1.4 10^3/uL (0.0-1.0); MONOCYTES % (AUTO) 11 % (0-12); NEUTROPHILS # (AUTO) 9.5 10^3/uL (1.8-7.8); NEUTROPHILS % (AUTO) 78 % (42-75); PLATELET COUNT 200 10^3/uL (130-400); WHITE BLOOD COUNT 12.3 10^3/uL (4.3-11.0)
[2021-05-18 07:00] LABS: POTASSIUM 4.4 MMOL/L (3.6-5.0)
[2021-05-18 07:01] LABS: CALCIUM 8.6 MG/DL (8.5-10.1)
[2021-05-18 07:02] LABS: TOTAL PROTEIN 5.6 GM/DL (6.4-8.2)
[2021-05-18 07:04] LABS: BILIRUBIN,TOTAL 0.9 MG/DL (0.1-1.0)
[2021-05-18 07:06] LABS: CREATININE SERUM 0.79 MG/DL (0.60-1.30)
[2021-05-18 07:30] VITALS: BP 160/63
[2021-05-18] MEDS: inSUlin ASPART (NovoLOG) 1 UNIT/0.01 ML (CHARGE PER UNIT) SQ SCH ×3 (07:37→16:22)
[2021-05-18] MEDS: PANTOPRAZOLE 40 MG (PROTONIX) TAB PO SCH (08:38)
[2021-05-18] MEDS: PREGABALIN 100 MG (LYRICA) CAPSULE PO SCH ×2 (08:38→21:38)
[2021-05-18] MEDS: VITAMIN D3 125 MCG (5,000 UNITS) CAPSULE PO SCH (08:38)
[2021-05-18] MEDS: LACTOBACILLUS ACIDOPHILUS (PROBIOTIC) CAPSULE PO SCH ×3 (08:39→18:14)
--- NOTE | 2021-05-18 08:49 | Physical Therapy Daily Note ---
PT Daily Note-Current Subjective Pt reports she has not had pain meds yet today. She verbalized she sat up in the chair yesterday for about 3 hours. Mental Status Patient Orientation: Normal For Age Transfers SCALE: Activities may be completed with or without assistive devices. 5-Yhshseylen-sbppoxt completes the activity by him/herself with no assistance from a helper. 5-Set-up or Clean-up Assistance-helper sets up or cleans up; patient completes activity. Hope assists only prior to or following the activity. 4-Supervision or Touching Assistance-helper provides verbal cues and/or touching/steadying and/or contact guard assistance as patient completes activity. Assistance may be provided throughout the activity or intermittently. 3-Partial/Moderate Assistance-helper does LESS THAN HALF the effort. Hope lifts, holds or supports trunk or limbs, but provides less than half the effort. 2-Substantial/Maximal Assistance-helper does MORE THAN HALF the effort. Hope lifts or holds trunk or limbs and provides more than half the effort. 9-Azqumkses-uchzwa does ALL the effort. Patient does none of the effort to complete the activity. Or, the assistance of 2 or more helpers is required for the patient to complete the activity. If activity was not attempted, code reason: 7-Patient Refused. 9-Not Applicable-not attempted and the patient did not perform the activity before the current illness, exacerbation or injury. 10-Not Attempted due to Environmental Limitations-(lack of equipment, weather restraints, etc.). 88-Not Attempted due to Medical Conditions or Safety Concerns. Sit to Lying (QC): 4 Lying to Sitting/Side of Bed(Q: 4 Sit to Stand (QC): 4 Chair/Yku-bp-Pkubh Xfer(QC): 3 Weight Bearing Right Lower Extremity: Right Full Weight Bearing Left Lower Extremity: Left Weight Bearing/Tolerated Gait Training Does the Patient Walk?: Yes Gait Assistive Device: FWW Practiced wt shifting, sales and marketing representative place moving (L) foot forward and back, not yet able to advance the right foot forward due to weakness and pain on the left and insufficient UE strenth. Exercises Supine Ex: LE Protocol Supine Reps: 10 Assessment Current Status: Fair Progress Bed mobility improved this session from Moderate to Minimal assist. Pt remains unable to take steps. Transfers stand pivot with Moderate assist. Was able to use the FWW for stand pivot today with moderate assist. Pt will benefit from continued therapy. Consider ARU admission for continued PT. PT Double Ending Machine Operator Goals Assisted Goals PT Assisted Goals Time Frame: May 23, 2021 Roll Left & Right (QC): 6 Sit to Lying (QC): 6 Lying-Sitting on Side/Bed(QC): 6 Sit to Stand (QC): 6 Chair/Zgg-mc-Xqwha Xfer(QC): 4 Walk 150 ft (QC): 4 1 Step (curb) (QC): 4 PT Plan Treatment/Plan Treatment Plan: Continue Plan of Care Treatment Duration: May 23, 2021 Frequency: 11 times per week Estimated Hrs Per Day: .25 hour per day Patient and/or Family Agrees t: Yes Discharge Recommendations Therapy Discharge Recommendati: Post Acute PT, Post Acute OT Time/GCodes Time In: 0800 Time Out: 0830 Total Billed Treatment Time: 30 Total Billed Treatment visit, FA 15, ex 15 GUILHERME VERNON PT May 18, 2021 08:49
[2021-05-18] MEDS ORDERED: ASPIRIN E.C. 81 MG (ECOTRIN) TAB PO SCH (09:00)
--- NOTE | 2021-05-18 09:46 | Progress Note - Ortho ---
Progress Note Subjective Date of Exam 05/18/21 Chief Complaint POD #2 L IT Femur Fx s/p IM nailing HPI/Events since last exam Pain reasonably controlled, slow progress with therapy Review of Systems - Allergies: Coded Allergies: cefdinir (Verified Adverse Reaction, Mild, NAUSEA, yeast infection, 11/08/19) Cephalosporins (Verified Adverse Reaction, Unknown, yeast infections, 11/08/19) Home Meds Reported Medications Atorvastatin Calcium (Atorvastatin Calcium) 20 Mg Tablet, 20 MG PO HS, TAB LAST FILLED 12-18-2020 #30 DAY SUPPLY 05/16/21 Cholecalciferol (Vitamin D3) (Vitamin D3) 125 Mcg Tablet, 125 MCG PO DAILY, TAB 12/18/20 Ascorbate Calcium (Vitamin C) 500 Mg Tablet, 500 MG PO DAILY, TAB 12/18/20 Acetaminophen (Tylenol Arthritis) 650 Mg Tablet.er, 1300 MG PO Q8H PRN for PAIN- MILD (1-4), TAB 12/18/20 Multivitamin (Multivitamin) 1 Each Tablet, 1 EACH PO DAILY, TAB 12/18/20 Citalopram Hydrobromide (Celexa) 20 Mg Tablet, 20 MG PO DAILY, TAB 12/18/20 Exenatide Microspheres (Bydureon Bcise) 2 Mg/0.85 Ml Auto.injct, 2 MG SQ SUN, ML 06/28/20 Metoprolol Succinate (Metoprolol Succinate) 25 Mg Tab.er.24h, 25 MG PO DAILY, TAB 04/02/20 Pantoprazole Sodium (Protonix) 40 Mg Tablet.dr, 40 MG PO DAILY, TAB 11/08/19 Insulin Detemir (Levemir Flextouch) 100 Unit/1 Ml Insuln.pen, 25 UNIT SQ HS, EA 08/01/19 Insulin Aspart (Novolog Flexpen) 300 Units/3 Ml Solution, 15 UNITS SQ AC, EA 08/01/19 Pregabalin (Pregabalin) 100 Mg Capsule, 100 MG PO BID, CAP 08/01/19 Clopidogrel Bisulfate (Plavix) 75 Mg Tablet, 75 MG PO DAILY, TAB 08/01/19 Aspirin (Aspirin EC) 81 Mg Tablet.dr, 81 MG PO DAILY, TAB 09/05/18 Discontinued Reported Medications L.acidoph & Paracasei,B.lactis (Probiotic) 1 Each Capsule, 1 EACH PO DAILY, CAP 12/18/20 Discontinued Scripts Metformin HCl (Metformin HCl ER) 500 Mg Tab.er.24, 500 MG PO BID, #1 TAB Hold Metformin for 48 hours Prov:JAVIER HERNANDEZ MD 12/18/20 Atorvastatin Calcium (Atorvastatin Calcium) 20 Mg Tablet, 20 MG PO HS, #20 TAB 4 Refills Prov:JAVIER HERNANDEZ MD 12/18/20 Ezetimibe (Ezetimibe) 10 Mg Tablet, 10 MG PO HS, #30 TAB 4 Refills Prov:JAVIER HERNANDEZ MD 12/18/20 Objective Exam Left Hip: Incisions C/D/I, +DF of ankle, no s/s of DVT Vital Signs Vital Signs Date Time Temp Pulse Resp B/P (MAP) Pulse Ox O2 Delivery O2 Flow Rate FiO2 05/18/21 07:30 37.9 89 96 160/63 (95) 95 Nasal Cannula 3.00 05/18/21 03:55 37.7 102 20 163/81 (108) 91 Nasal Cannula 3.00 05/17/21 23:50 37.8 80 18 130/77 (94) 92 Nasal Cannula 3.00 05/17/21 20:00 Nasal Cannula 3.00 05/17/21 19:40 35.9 76 18 139/64 (89) 95 Nasal Cannula 3.00 05/17/21 16:02 36.6 75 18 144/69 (94) 92 Nasal Cannula 3.00 05/17/21 12:26 36.9 77 20 124/65 (84) 94 Nasal Cannula 3.00 05/17/21 10:51 Nasal Cannula 3.00 I & O 05/18/21 07:00 Intake Total 2190 ml Output Total 2075 ml Balance 115 ml Lab Results Laboratory Tests 05/17/21 11:50: Glucometer 191H 05/17/21 15:56: Glucometer 182H 05/17/21 20:25: Glucometer 161H 05/18/21 06:01: Glucometer 180H 05/18/21 06:42: White Blood Count 12.3H, Red Blood Count 3.62L, Hemoglobin 10.3L, Hematocrit 33L , Mean Corpuscular Volume 92, Mean Corpuscular Hemoglobin 29, Mean Corpuscular Hemoglobin Concent 31L, Red Cell Distribution Width 13.5, Platelet Count 200, Mean Platelet Volume 9.9, Immature Granulocyte % (Auto) 1, Neutrophils (%) (Auto) 78H, Lymphocytes (%) (Auto) 10L, Monocytes (%) (Auto) 11, Eosinophils (%) (Auto) 0, Basophils (%) (Auto) 0, Neutrophils # (Auto) 9.5H, Lymphocytes # (Auto) 1.3, Monocytes # (Auto) 1.4H, Eosinophils # (Auto) 0.0, Basophils # (Auto) 0.1, Immature Granulocyte # (Auto) 0.1, Sodium Level 135, Potassium Level 4.4, Chloride Level 104, Carbon Dioxide Level 19L, Anion Gap 12, Blood Urea Nitrogen 17, Creatinine 0.79, Estimat Glomerular Filtration Rate 86, BUN/Creatinine Ratio 22, Glucose Level 195H, Calcium Level 8.6, Corrected Calcium 9.4, Total Bilirubin 0.9, Aspartate Amino Transf (AST/SGOT) 20, Alanine Aminotransferase (ALT/SGPT) 28, Alkaline Phosphatase 98, Total Protein 5.6L, Albumin 3.0L Microbiology 05/16/21 MRSA Screen - Final, Complete MRSA not isolated Assessment and Plan Assessment Left Intertrochanteric Femur Fracture s/p IM Nailing Problem List Left Intertrochanteric Femur Fracture s/p IM Nailing Plan Therapy DVT Prophylaxis Evaluate for possible rehab candidacy Final Diagonsis Left Intertrochanteric Femur Fracture s/p IM Nailing Level of the visit: Level 3 (global postop) NYLA DIAZ MD May 18, 2021 09:46
[2021-05-18 11:44] VITALS: BP 131/77
[2021-05-18 15:41] VITALS: BP 130/72
--- NOTE | 2021-05-18 17:01 | Cardiology Progress Note ---
Progress Note-Cardiology Events since last exam Date Seen by Provider: May 18, 2021 Time Seen by Provider: 16:59 Events since last exam We are following her due to coronary artery disease in the setting of a fall that resulted in a hip fracture now status post operative repair. She has been getting up out of bed with the assistance of physical therapy. She is hoping to be transferred to our inpatient rehabilitation unit within the next couple of days. She denies chest discomfort, dyspnea, palpitations, syncope, or ankle edema. Certain portions of this document may have been dictated utilizing voice rec ognition technology. Inherent to this technology, typographical and grammatical errors may exist. As much as I am diligent to identify and correct these mistakes, some errors may remain in the document. Vitals Last set of Vitals Signs Vital Signs 05/18/21 15:41 Temp 35.7 Pulse 75 Resp 18 B/P (MAP) 130/72 (91) Pulse Ox 96 O2 Delivery Nasal Cannula O2 Flow Rate 3.00 Labs Labs Laboratory Tests 05/18/21 06:42 Exam Vital Signs Vital Signs Date Time Temp Pulse Resp B/P (MAP) Pulse Ox O2 Delivery O2 Flow Rate FiO2 05/18/21 15:41 35.7 75 18 130/72 (91) 96 Nasal Cannula 3.00 Physical Exam General: Alert. No acute distress. She is overweight. Eye: No xanthelasma. HENT: Normocephalic. Neck: Jugular venous pressure does not appear elevated. Respiratory: Lungs are clear to auscultation. Respirations are non-labored. Breath sounds are equal. Symmetrical chest wall expansion. Cardiovascular: Normal rate. Regular rhythm. No murmur. No gallop. No edema. Gastrointestinal: Soft. Normal bowel sounds. Skin: Warm. Dry. Neurologic: Alert and oriented to person, place, time. Cranial nerves 3-11 grossly intact. Psychiatric: Cooperative. Appropriate mood & affect. Labs Laboratory Tests Test 05/17/21 20:25 05/18/21 06:01 05/18/21 06:42 05/18/21 10:48 Range/Units Glucometer 161 H 180 H 187 H 70-110 MG/DL White Blood Count 12.3 H 4.3-11.0 10^3/uL Red Blood Count 3.62 L 3.80-5.11 10^6/uL Hemoglobin 10.3 L 11.5-16.0 g/dL Hematocrit 33 L 35-52 % Mean Corpuscular Volume 92 80-99 fL Mean Corpuscular Hemoglobin 29 25-34 pg Mean Corpuscular Hemoglobin Concent 31 L 32-36 g/dL Red Cell Distribution Width 13.5 10.0-14.5 % Platelet Count 200 130-400 10^3/uL Mean Platelet Volume 9.9 9.0-12.2 fL Immature Granulocyte % (Auto) 1 % Neutrophils (%) (Auto) 78 H 42-75 % Lymphocytes (%) (Auto) 10 L 12-44 % Monocytes (%) (Auto) 11 0-12 % Eosinophils (%) (Auto) 0 0-10 % Basophils (%) (Auto) 0 0-10 % Neutrophils # (Auto) 9.5 H 1.8-7.8 10^3/uL Lymphocytes # (Auto) 1.3 1.0-4.0 10^3/uL Monocytes # (Auto) 1.4 H 0.0-1.0 10^3/uL Eosinophils # (Auto) 0.0 0.0-0.3 10^3/uL Basophils # (Auto) 0.1 0.0-0.1 10^3/uL Immature Granulocyte # (Auto) 0.1 0.0-0.1 10^3/uL Sodium Level 135 135-145 MMOL/L Potassium Level 4.4 3.6-5.0 MMOL/L Chloride Level 104 98-107 MMOL/L Carbon Dioxide Level 19 L 21-32 MMOL/L Anion Gap 12 5-14 MMOL/L Blood Urea Nitrogen 17 7-18 MG/DL Creatinine 0.79 0.60-1.30 MG/DL Estimat Glomerular Filtration Rate 86 BUN/Creatinine Ratio 22 Glucose Level 195 H 70-105 MG/DL Calcium Level 8.6 8.5-10.1 MG/DL Corrected Calcium 9.4 8.5-10.1 MG/DL Total Bilirubin 0.9 0.1-1.0 MG/DL Aspartate Amino Transf (AST/SGOT) 20 5-34 U/L Alanine Aminotransferase (ALT/SGPT) 28 0-55 U/L Alkaline Phosphatase 98 40-136 U/L Total Protein 5.6 L 6.4-8.2 GM/DL Albumin 3.0 L 3.2-4.5 GM/DL Test 05/18/21 15:40 Range/Units Glucometer 142 H 70-110 MG/DL Diagnosis/Problems Diagnosis/Problems (1) Coronary artery disease without angina pectoris Assessment & Plan: She is not having any angina. Continue aspirin, beta- kenzie and statin medication. (2) Primary hypertension Assessment & Plan: Blood pressures were elevated earlier today but have improved after she received her metoprolol. If she continues to have elevated blood pressures, we may need to adjust her beta-kenzie. (3) Mixed hyperlipidemia Assessment & Plan: Continue statin medication. (4) History of cerebrovascular accident Assessment & Plan: Continue aspirin and statin medication. She is not having any new neurologic complaints. (5) Type 2 diabetes mellitus with complication Assessment & Plan: This is being managed by the hospitalist. KINGSLEY DAVIS JR, MD May 18, 2021 17:01
[2021-05-18] MEDS: ASPIRIN E.C. 81 MG (ECOTRIN) TAB PO SCH (18:14)
[2021-05-18 19:03] VITALS: BP 151/79
[2021-05-19] VITALS (7 sets, daily range): BP systolic 110–137; BP diastolic 58–69
[2021-05-19] MEDS: HYDROmorphone 2 MG/ML VIAL (DILAUDID) IV PRN ×5 (01:08→22:22)
[2021-05-19] MEDS: ASCORBIC ACID (VIT C) 500 MG TABLET PO SCH (05:51)
[2021-05-19] MEDS: inSUlin ASPART (NovoLOG) 1 UNIT/0.01 ML (CHARGE PER UNIT) SC SCH ×4 (05:58→21:54)
[2021-05-19] MEDS: MULTIVIT W/MINERALS TAB (THERAGRAN M) PO SCH (05:58)
[2021-05-19 07:33] LABS: BASOPHILS % (AUTO) 0 % (0-10); EOSINOPHILS # (AUTO) 0.1 10^3/uL (0.0-0.3); EOSINOPHILS % (AUTO) 1 % (0-10); HEMATOCRIT 32 % (35-52); HEMOGLOBIN 10.3 g/dL (11.5-16.0); LYMPHOCYTES % (AUTO) 9 % (12-44); MEAN CORPUSCULAR HEMOGLOBIN 28 pg (25-34); MEAN CORPUSCULAR HGB CONC 32 g/dL (32-36); MEAN CORPUSCULAR VOLUME 88 fL (80-99); MEAN PLATELET VOLUME 10.2 fL (9.0-12.2); MONOCYTES # (AUTO) 1.4 10^3/uL (0.0-1.0); MONOCYTES % (AUTO) 12 % (0-12); NEUTROPHILS # (AUTO) 8.8 10^3/uL (1.8-7.8); NEUTROPHILS % (AUTO) 78 % (42-75); PLATELET COUNT 198 10^3/uL (130-400); WHITE BLOOD COUNT 11.4 10^3/uL (4.3-11.0)
[2021-05-19 07:44] LABS: ALBUMIN 2.8 GM/DL (3.2-4.5)
[2021-05-19 07:45] LABS: POTASSIUM 4.2 MMOL/L (3.6-5.0)
[2021-05-19 07:46] LABS: CALCIUM 8.7 MG/DL (8.5-10.1)
[2021-05-19 07:47] LABS: TOTAL PROTEIN 5.7 GM/DL (6.4-8.2)
[2021-05-19 07:49] LABS: BILIRUBIN,TOTAL 1.1 MG/DL (0.1-1.0)
[2021-05-19 07:51] LABS: CREATININE SERUM 0.75 MG/DL (0.60-1.30)
[2021-05-19] MEDS: LACTOBACILLUS ACIDOPHILUS (PROBIOTIC) CAPSULE PO SCH ×3 (08:22→17:24)
[2021-05-19] MEDS: PREGABALIN 100 MG (LYRICA) CAPSULE PO SCH ×2 (08:22→20:43)
[2021-05-19] MEDS: PANTOPRAZOLE 40 MG (PROTONIX) TAB PO SCH (08:22)
[2021-05-19] MEDS: ASPIRIN E.C. 81 MG (ECOTRIN) TAB PO SCH ×2 (08:22→17:24)
[2021-05-19] MEDS: inSUlin ASPART (NovoLOG) 1 UNIT/0.01 ML (CHARGE PER UNIT) SQ SCH ×3 (08:23→17:24)
[2021-05-19] MEDS: VITAMIN D3 125 MCG (5,000 UNITS) CAPSULE PO SCH (08:23)
--- NOTE | 2021-05-19 09:38 | Cardiology Progress Note ---
Subjective Date Seen by Provider: May 19, 2021 Time Seen by Provider: 09:36 Subjective/Events-last exam Patient is here on a follow-up visit, has been doing well. No new complaint Review of Systems General: No Chills, No Night Sweats, No Fatigue, No Malaise, No Appetite, No Other HEENT: No Head Aches, No Visual Changes, No Eye Pain, No Ear Pain, No Dysphasia, No Sinus Congestion, No Post Nasal Drip, No Sore Throat, No Other Pulmonary: No Dyspnea, No Cough, No Pleuritic Chest Pain, No Other Cardiovascular: No: Chest Pain, Palpitations, Orthopnea, Paroxysmal Noc. Dyspnea, Edema, Lt Headedness, Other Objective-Cardiology Exam Last Set of Vital Signs Vital Signs 05/19/21 08:00 Temp 36.5 Pulse 81 Resp 18 B/P (MAP) 137/69 (91) Pulse Ox 93 O2 Delivery Nasal Cannula O2 Flow Rate 3.00 I&O Intake and Output 05/19/21 00:00 Intake Total 1300 ml Output Total 2450 ml Balance -1150 ml Intake Oral 1300 ml Output Urine Total 2450 ml General: Alert, Oriented X3, Cooperative HEENT: Atraumatic, PERRLA Neck: Supple, No JVD, No Thyromegaly Lungs: Clear to Auscultation, Normal Air Movement Heart: Regular Rate, Normal S1, Normal S2, No Murmurs Abdomen: Normal Bowel Sounds, Soft, No Tenderness, No Hepatosplenomegaly, No Masses Extremities: No Clubbing, No Cyanosis, No Edema, Normal Pulses, No Tenderness/Swelling Skin: No Rashes, No Breakdown, No Significant Lesion Neuro: Normal Gait, Normal Speech, Strength at 5/5 X4 Ext, Normal Tone, Sensation Intact Psych/Mental Status: Mental Status NL, Mood NL Results Lab Laboratory Tests 05/19/21 07:25 A/P-Cardiology Admission Diagnosis Left hip fracture Coronary artery disease Hypertension Assessment/Plan Left hip fracture, status post surgical repair, recovering well and doing well, possible transfer to acute rehab. Coronary artery disease, History of cardiac catheterization in 2013 with the stent using Promus drug- eluting stent 2.25 x 16mm to the first diagonal branch, had moderate disease in the LAD with normal FFR. LHC on 12/18/20 showing severe stenosis in the distal LAD with successful primary stenting using skypoint 2.25 x23mm, moderate stenosis in the mid LAD, patent stent in the diagonal artery, nonobstructive dz. Moderate stenosis in the mid RCA, FFR 0.86. 2D Echo done August 2018 showing EF 55-65% History of CVA in 2019, mild residual left-sided weakness. Has been monitored and doing well History of loop implant done in August [address] Awad, monitoring showed brief episode of atrial fibrillation in the remote past. No further episodes noted. Hypertension, controlled continue on current medication Hyperlipidemia, maintained on statin. Unable to tolerate higher dose of statin d/t myalgias, was unable to tolerate Zetia d/t myalgias. Was started on Repatha DM, management per PCP. 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 ABIs done August 2020 WNL. Follows with wound care, reports wound almost completely healed. History of tobaccoism, stopped in the remote past. JAVIER HERNANDEZ MD May 19, 2021 09:38
--- NOTE | 2021-05-19 09:41 | Physical Therapy Daily Note ---
PT Daily Note-Current Subjective Upon arrival pt was ready for PT. Pt stated that she is in pain today. Pain Numeric Pain Scale: 8 Location: Left Location Body Site: Hip Mental Status Patient Orientation: Normal For Age Attachments: Oxygen, Sanchez Catheter, IV Transfers SCALE: Activities may be completed with or without assistive devices. 0-Umdxbaoevf-aqfcokt completes the activity by him/herself with no assistance f rom a helper. 5-Set-up or Clean-up Assistance-helper sets up or cleans up; patient completes activity. [place] assists only prior to or following the activity. 4-Supervision or Touching Assistance-helper provides verbal cues and/or touching/steadying and/or contact guard assistance as patient completes activity. Assistance may be provided throughout the activity or intermittently. 3-Partial/Moderate Assistance-helper does LESS THAN HALF the effort. [place] lifts, holds or supports trunk or limbs, but provides less than half the effort. 2-Substantial/Maximal Assistance-helper does MORE THAN HALF the effort. [place] lifts or holds trunk or limbs and provides more than half the effort. 5-Wfobxwxek-swcevm does ALL the effort. Patient does none of the effort to complete the activity. Or, the assistance of 2 or more helpers is required for the patient to complete the activity. If activity was not attempted, code reason: 7-Patient Refused. 9-Not Applicable-not attempted and the patient did not perform the activity before the current illness, exacerbation or injury. 10-Not Attempted due to Environmental Limitations-(lack of equipment, weather restraints, etc.). 88-Not Attempted due to Medical Conditions or Safety Concerns. Lying to Sitting/Side of Bed(Q: 3 Sit to Stand (QC): 1 (x2) Chair/Toc-wf-Xboat Xfer(QC): 1 (x2) Pt yelled during session due to pain and fear of falling. Pt required 2 therapist for assistance to safely transfer pt from bed to chair. Weight Bearing Right Lower Extremity: Right Full Weight Bearing Left Lower Extremity: Left Weight Bearing/Tolerated Gait Training Walk 10 feet (QC): 88 Gait Assistive Device: FWW (Pt moved from bed to chair.) Exercises Supine Ex: Ankle pumps, Heel Slides, Straight leg raise Supine Reps: 10 (bi AAROM) Seated Therapy Exercises: Long arc quads Seated Reps: 5 Assessment Current Status: Good Progress Pt would benefit from continued PT to address gait, strength, and activity tolerance and fear of falling. PT Penitentiary Goals Penitentiary Goals PT Recycle Worker Goals Time Frame: May 23, 2021 Roll Left & Right (QC): 6 Sit to Lying (QC): 6 Lying-Sitting on Side/Bed(QC): 6 Sit to Stand (QC): 6 Chair/Afi-xc-Xckyz Xfer(QC): 4 Walk 150 ft (QC): 4 1 Step (curb) (QC): 4 PT Plan Problem List Problem List: Activity Tolerance, Gait Treatment/Plan Treatment Plan: Continue Plan of Care Treatment Duration: May 23, 2021 Frequency: 11 times per week Estimated Hrs Per Day: .5 hour per day Patient and/or Family Agrees t: Yes Safety Risks/Education Patient Education: Transfer Techniques, Steps, Safety Issues Teaching Recipient: Patient Teaching Methods: Discussion Response to Teaching: Verbalize Understanding, Return Demonstration Time/GCodes Time In: 830 Time Out: 849 Total Billed Treatment Time: 19 Total Billed Treatment 1, FA 19 HENRY DEUTSCH TOOL ROOM MACHINIST May 19, 2021 09:41
[2021-05-19] MEDS ORDERED: SENNA W/DOCUSATE (SENOKOT S) TABLET PO ONE (11:00)
[2021-05-19] MEDS ORDERED: BISACODYL 10 MG SUPP (DULCOLAX) PR PRN (11:00)
[2021-05-19] MEDS ORDERED: LACTULOSE SYRUP 10GM/15ML (ENULOSE) 30ML UDC PO ONE (11:00)
[2021-05-19] MEDS ORDERED: BISACODYL 10 MG SUPP (DULCOLAX) PR ONE (11:00)
--- NOTE | 2021-05-19 11:04 | Occupational Therapy Eval ---
OT Evaluation-General/PLF Medical Diagnosis Admission Date May 15, 2021 at 21:46 Medical Diagnosis: left hip fracture Onset Date: May 16, 2021 Therapy Diagnosis Therapy Diagnosis: reduced adl status Height/Weight Height (Feet): 5 Height (Inches): 8.00 Weight (Pounds): 166 Weight (Ounces): 0.0 Precautions Precautions/Isolations: Fall Prevention, Standard Precautions Weight Bear Status Weight Bearing Restriction: Weight Bearing/Tolerated Location Restriction: L LE Referral Referral Reason: Evaluation/Treatment Medical History Pertinent Medical History: CAD, CVA, DM, GERD, HTN, Smoking Current History s/p IM nailing. Per patient, she lives in a single story home with spouse, daughter and 2 grandchildren. She was indep with adls, cleaning, and cooking. Family members do laundry due to it being located in the basement. Pt owns a walker and a cane but was not using prior to admission. She reports residual weakness on L side from CVA in 2019. Reviewed History: Yes Social History Home: Single Level Current Living Status: Spouse ADL-Prior Level of Function SCALE: Activities may be completed with or without assistive devices. 6-Fzyzcgdzcc-zyeuynd completes the activity by him/herself with no assistance from a helper. 5-Set-up or Clean-up Assistance-helper sets up or cleans up; patient completes activity. [place] assists only prior to or following the activity. 4-Supervision or Touching Assistance-helper provides verbal cues and/or touching/steadying and/or contact guard assistance as patient completes activity. Assistance may be provided throughout the activity or intermittently. 3-Partial/Moderate Assistance-helper does LESS THAN HALF the effort. [place] lifts, holds or supports trunk or limbs, but provides less than half the effort. 2-Substantial/Maximal Assistance-helper does MORE THAN HALF the effort. [place] lifts or holds trunk or limbs and provides more than half the effort. 5-Ntqhaqgxr-safnyo does ALL the effort. Patient does none of the effort to complete the activity. Or, the assistance of 2 or more helpers is required for the patient to complete the activity. If activity was not attempted, code reason: 7-Patient Refused. 9-Not Applicable-not attempted and the patient did not perform the activity before the current illness, exacerbation or injury. 10-Not Attempted due to Environmental Limitations-(lack of equipment, weather restraints, etc.). 88-Not Attempted due to Medical Conditions or Safety Concerns. Self Care: Independent Functional Cognition: Independent DME/Equipment: Bath Bench, Grab Bars, Tub/Shower OT Current Status Subjective Pt reports pain at rest as 9/10. She states she is waiting for a PICC line to be placed. Appearance Pt left sitting in chair, family in the room. Mental Status/Objective Patient Orientation: Person, Place, Situation Attachments: Sr Catheter, IV, Oxygen Current Hearing Aids: No Dentures/Partials: No Hand Dominance: Right Upper Extremity ROM WNL Upper Extremity Strength RUE: 4/5 throughout LUE: 3+/5 throughout ADL-Treatment Eating (QC): 6 Oral Hygiene (QC): 5 (per clinical judgement) Shower/Bathe Self (QC): 1 Lower Body Dressing (QC): 1 (per clinical judgment) On/Off Footwear (QC): 1 Toileting Hygiene (QC): 1 (sr catheter) Pt sitting in recliner at OT arrival. Dependent to don/doff bilateral socks. Per PT note, assist x2 to stand. Patient verbalizes that she is fearful of falling and that her L knee hayley in standing. At this time, pt would be dependent for all standing tasks, including clothing management pre/post toileting and washing buttocks in standing. Pt anticipates discharge to rehab tomorrow. Education OT Patient Education: Correct positioning, Disease process, Modified ADL techniques, Progress toward Goal/Update tx plan, Purpose of tx/functional activities, Reviewed precautions, Rehab process, Safety issues, Transfer techniques Teaching Recipient: Patient Teaching Methods: Discussion Response to Teaching: Verbalize Understanding, Reinforcement Needed OT Pipe Smoking Machine Offbearer Goals Usp Goals Time Frame: Jun 09, 2021 Oral Hygiene (QC): 6 Toileting Hygiene (QC): 4 Shower/Bathe Self (QC): 4 Upper Body Dressing (QC): 4 Lower Body Dressing (QC): 4 On/Off Footwear (QC): 4 1=Demonstrate adherence to instructed precautions during ADL tasks. 2=Patient will verbalize/demonstrate understanding of assistive devices/modifications for ADL. 3=Patient will improve strength/tolerance for activity to enable patient to perform ADL's. OT Education/Plan Problem List/Assessment Assessment: Decreased Activ Tolerance, Decreased Safety Aware, Decreased UE Strength, Dependent Transfers, Impaired Bed Mobility, Impaired Funct Balance, Impaired I ADL's, Impaired Self-Care Skills Discharge Recommendations Plan/Recommendations: Continue POC Therapy Discharge Recommendati: Post Acute OT Treatment Plan/Plan of Care Treatment,Training & Education: Yes Patient would benefit from OT for education, treatment and training to promote independence in ADL's, mobility, safety and/or upper extremity function for ADL's. Plan of Care: ADL Retraining, Cognitive Retraining, Functional Mobility, Group Exercise/Act as Ind, UE Funct Exercise/Act, W/C Management Training Treatment Duration: Jun 09, 2021 Frequency: 3 times per week (3-5x/week) Estimated Hrs Per Day: .25 hour per day Agreement: Yes Rehab Potential: Fair Time/GCodes Start Time: 10:44 Stop Time: 10:56 Total Time Billed (hr/min): 12 Billed Treatment Time 1 visit Lynette Roberts OT May 19, 2021 11:04
--- NOTE | 2021-05-19 11:49 | Physical Therapy Daily Note ---
PT Daily Note-Current Subjective Upon arrival pt was ready to get back in bed. upon transferring pt would c/o pain, and yell due to pain in L hip. Pt followed instructions very well. Pain Comment: Pt reported pain but was not rated. Mental Status Patient Orientation: Normal For Age Attachments: Oxygen, Sanchez Catheter, IV Transfers SCALE: Activities may be completed with or without assistive devices. 0-Xakscvgmoz-qyasqax completes the activity by him/herself with no assistance from a helper. 5-Set-up or Clean-up Assistance-helper sets up or cleans up; patient completes activity. [place] assists only prior to or following the activity. 4-Supervision or Touching Assistance-helper provides verbal cues and/or touchi ng/steadying and/or contact guard assistance as patient completes activity. Assistance may be provided throughout the activity or intermittently. 3-Partial/Moderate Assistance-helper does LESS THAN HALF the effort. [place] lifts, holds or supports trunk or limbs, but provides less than half the effort. 2-Substantial/Maximal Assistance-helper does MORE THAN HALF the effort. [place] lifts or holds trunk or limbs and provides more than half the effort. 8-Xqrhjtbvc-fisumv does ALL the effort. Patient does none of the effort to complete the activity. Or, the assistance of 2 or more helpers is required for the patient to complete the activity. If activity was not attempted, code reason: 7-Patient Refused. 9-Not Applicable-not attempted and the patient did not perform the activity before the current illness, exacerbation or injury. 10-Not Attempted due to Environmental Limitations-(lack of equipment, weather restraints, etc.). 88-Not Attempted due to Medical Conditions or Safety Concerns. Sit to Lying (QC): 3 Sit to Stand (QC): 2 (x2) Pt needed verbal cueing on scooting her LLE back towards bed, and reaching back to sit on EOB. Weight Bearing Right Lower Extremity: Right Full Weight Bearing Left Lower Extremity: Left Weight Bearing/Tolerated Gait Training Gait Assistive Device: FWW Exercises Supine Ex: Ankle pumps (10), Heel Slides (6), Straight leg raise (10) Assessment Current Status: Good Progress Pt would benefit from continued PT, to work on GT, balance, strength, activity tolerance, and her fear of falling. PT Retirement Goals Wellness Instructor Goals PT Wellness Instructor Goals Time Frame: May 23, 2021 Roll Left & Right (QC): 6 Sit to Lying (QC): 6 Lying-Sitting on Side/Bed(QC): 6 Sit to Stand (QC): 6 Chair/Ret-mz-Xgmnj Xfer(QC): 4 Walk 150 ft (QC): 4 1 Step (curb) (QC): 4 PT Plan Problem List Problem List: Activity Tolerance, Balance, Gait Treatment/Plan Treatment Plan: Continue Plan of Care Treatment Duration: May 23, 2021 Frequency: 11 times per week Estimated Hrs Per Day: .5 hour per day Patient and/or Family Agrees t: Yes Safety Risks/Education Patient Education: Transfer Techniques, Steps, Correct Positioning, Safety Issues Teaching Recipient: Patient Teaching Methods: Discussion Response to Teaching: Verbalize Understanding, Return Demonstration Time/GCodes Time In: 1130 Time Out: 1144 Total Billed Treatment Time: 15 Total Billed Treatment 1, FA (15) HENRY DEUTSCH PTA May 19, 2021 11:49
--- NOTE | 2021-05-19 12:40 | Progress Note - Hospitalist ---
MACY CARTER 05/19/21 1240: Subjective HPI/CC On Admission Date Seen by Provider: May 19, 2021 Time Seen by Provider: 09:00 cc: mechanical fall Patient is a 61-year-old female with a history of stroke, coronary artery disease, and 2x stents currently on Plavix who presents ED with a chief complaint of left hip pain. Patient caught her foot on the carport 2-3 inches tall and landed on her L hip. She heard a crack and was unable to stand. She denies hitting her head or LOC. She denies any other injuries. She states she has been week on her L side since her stroke in 2019. She has a history of falls, previous one noted last year on ice. She received 50 IM fentanyl in route to ED. Subjective/Events-last exam The patient was sitting comfortably this morning. She was complaining of pain in the L hip which she reported as 7-8 out of 10. She has not had a bowel movement since . Review of Systems General: No Chills, No Night Sweats HEENT: No Head Aches, No Visual Changes Pulmonary: No Dyspnea, No Cough Cardiovascular: No: Chest Pain, Palpitations Gastrointestinal: No: Nausea, Vomiting Genitourinary: No Dysuria, No Hematuria Musculoskeletal: other (pain in left hip) Neurological: No: Weakness, Numbness Objective Exam Vital Signs Vital Signs Date Time Temp Pulse Resp B/P (MAP) Pulse Ox O2 Delivery O2 Flow Rate FiO2 05/19/21 12:00 36.4 79 18 110/59 (76) 90 Nasal Cannula 3.00 Capillary Refill : Less Than 3 SecondsLess Than 3 Seconds General Appearance: No Apparent Distress, WD/WN, Anxious, Obese HEENT: PERRL/EOMI, Normal ENT Inspection Neck: Full Range of Motion, Normal Inspection, Supple Respiratory: Chest Non Tender, Lungs Clear, Normal Breath Sounds, No Accessory Muscle Use, No Respiratory Distress Cardiovascular: Regular Rate, Rhythm, No Edema, No Gallop, No JVD, No Murmur Gastrointestinal: Normal Bowel Sounds, No Organomegaly, No Pulsatile Mass, Non Tender, Soft Extremity: Normal Inspection, No Calf Tenderness, Other (L hip pain) Neurologic/Psychiatric: Alert, Oriented x3, No Motor/Sensory Deficits Skin: Normal Color, Warm/Dry Lymphatic: No Adenopathy Results/Procedures Lab Laboratory Tests 05/19/21 07:25 Patient resulted labs reviewed. Assessment/Plan Assessment and Plan Assess & Plan/Chief Complaint Assessment: Left hip fracture S/P surgical repair on 05/16 DM Hx of CVA Recorder placed Hx of smoking, cessation 2 years ago HTN HLP CAD with previous stent Post opperative accute blood loss anemia. Plan: Left hip fracture S/P surgical repair on 05/16 Post opperative accute blood loss anemia. Possible move to inpatient rehab unit in near future. DC catheter today. Start Dulcolax suppository therapy today. Monitor labs. Increase Dilaudid interval to Q6 hours PRN. Increase oxycodone to 10mg Q 4hours PRN. DM HTN HLP CAD with previous stent Continue home meds Hx of CVA Recorder placed Hx of smoking, cessation 2 years ago No acute management needed. HAVEN CASTILLO DO 05/20/21 0527: Subjective Subjective/Events-last exam Pt is doing a lot better but pain is an issue Increased Oxycodone from 5 to 10 every 4 hours and decreased the frequency of Dilaudid Overall feels like she is doing pretty well Bowels not moving yet Will discontinue the catheter In-patient rehab tomorrow Review of Systems Musculoskeletal: leg pain Objective Exam General Appearance: WD/WN, Anxious, Chronically ill, Mild Distress, Obese Respiratory: Lungs Clear, Normal Breath Sounds Cardiovascular: Regular Rate, Rhythm Neurologic/Psychiatric: Alert, Oriented x3, No Motor/Sensory Deficits, Normal Mood/Affect Assessment/Plan Assessment and Plan Assess & Plan/Chief Complaint Pain control Inpatient rehab tomorrow Supervisory-Addendum Brief Verification & Attestation Participated in pt care: history, MDM, physical Personally performed: exam, history, MDM, supervision of care Care discussed with: Medical Student Procedures: n/a Results interpretation: Verified all documentation Verification and Attestation of Medical Student E/M Service A medical student performed and documented this service in my presence. I rev iewed and verified all information documented by the medical student and made modifications to such information, when appropriate. I personally performed the physical exam and medical decision making. Haven Castillo May 20, 2021,05:27 MACY CARTER May 19, 2021 12:40 HAVEN CASTILLO DO May 20, 2021 05:27
[2021-05-20 00:22] VITALS: BP 116/56
[2021-05-20 04:00] VITALS: BP 130/77
--- NOTE | 2021-05-20 05:51 | Discharge Summary ---
Diagnosis/Chief Complaint Date of Admission May 15, 2021 at 21:46 Date of Discharge Discharge Date: May 20, 2021 Discharge Diagnosis Assessment: Left hip fracture S/P surgical repair on 05/16 DM Hx of CVA Recorder placed Hx of smoking, cessation 2 years ago HTN HLP CAD with previous stent Post operative acute blood loss anemia. Plan: Left hip fracture S/P surgical repair on 05/16 Post opperative accute blood loss anemia. Possible move to inpatient rehab unit in near future. DC catheter today. Start Dulcolax suppository therapy today. Monitor labs. Increase Dilaudid interval to Q6 hours PRN. Increase oxycodone to 10mg Q 4hours PRN. DM HTN HLP CAD with previous stent Continue home meds Hx of CVA Recorder placed Hx of smoking, cessation 2 years ago No acute management needed. Discharge Summary Discharge Physical Examination Allergies: Coded Allergies: cefdinir (Verified Adverse Reaction, Mild, NAUSEA, yeast infection, 11/08/19) Cephalosporins (Verified Adverse Reaction, Unknown, yeast infections, 11/08/19) Vitals & I&Os Vital Signs Date Time Temp Pulse Resp B/P (MAP) Pulse Ox O2 Delivery O2 Flow Rate FiO2 05/20/21 08:00 36.4 84 18 117/64 (81) 91 Nasal Cannula 3.00 General Appearance: Alert, Oriented X3, Cooperative Respiratory: Clear to Auscultation Cardiovascular: Regular Rate Psych/Mental Status: Mental Status NL Hospital Course Was the Problem List Reviewed?: Yes Pt had an uneventful 6 day hospital course after she sustained a left hip f racture after a fall at home. She does have a history of left sided weakness due to stroke. Overall she had an uneventful course on med-surg. She needed in- patient rehab and that was arranged. Pain was an issue, decreased Dilaudid and increased Oxycodone. Bowel regimen initiated and that was successful. Pt was deemed ready for in-patient rehab. Labs (last 24 hrs) Laboratory Tests 05/15/21 21:05: White Blood Count 9.6, Red Blood Count 5.08, Hemoglobin 14.0, Hematocrit 44, Mean Corpuscular Volume 86, Mean Corpuscular Hemoglobin 28, Mean Corpuscular Hemoglobin Concent 32, Red Cell Distribution Width 13.7, Platelet Count 357, Mean Platelet Volume 9.6, Immature Granulocyte % (Auto) 1, Neutrophils (%) (Auto) 64, Lymphocytes (%) (Auto) 23, Monocytes (%) (Auto) 8, Eosinophils (%) (Auto) 3, Basophils (%) (Auto) 1, Neutrophils # (Auto) 6.2, Lymphocytes # (Auto) 2.2, Monocytes # (Auto) 0.8, Eosinophils # (Auto) 0.3, Basophils # (Auto) 0.1, Immature Granulocyte # (Auto) 0.1, Prothrombin Time 12.6, INR Comment 0.9, Activated Partial Thromboplast Time 31, Sodium Level 140, Potassium Level 5.2H, Chloride Level 104, Carbon Dioxide Level 21, Anion Gap 15H, Blood Urea Nitrogen 29H, Creatinine 1.28, Estimat Glomerular Filtration Rate 48, BUN/Creatinine Ratio 23, Glucose Level 289H, Calcium Level 9.1, Corrected Calcium 9.2, Total Bilirubin 0.4, Aspartate Amino Transf (AST/SGOT) 18, Alanine Aminotransferase (ALT/SGPT) 19, Alkaline Phosphatase 117, Total Protein 7.2, Albumin 3.9 05/16/21 05:00: White Blood Count 10.9, Red Blood Count 4.22, Hemoglobin 12.0, Hematocrit 37, Mean Corpuscular Volume 88, Mean Corpuscular Hemoglobin 28, Mean Corpuscular Hemoglobin Concent 32, Red Cell Distribution Width 13.8, Platelet Count 312, Mean Platelet Volume 10.0, Sodium Level 141, Potassium Level 5.2H, Chloride Level 107, Carbon Dioxide Level 21, Anion Gap 13, Blood Urea Nitrogen 29H, Creatinine 1.07, Estimat Glomerular Filtration Rate 59, BUN/Creatinine Ratio 27, Glucose Level 329H, Calcium Level 8.5, Mean Blood Glucose 206H, Hemoglobin A1c 8.8H 05/16/21 12:36: Glucometer 262H 05/16/21 16:55: Glucometer 226H 05/16/21 20:08: Glucometer 215H 05/17/21 00:32: Glucometer 211H 05/17/21 05:25: Glucometer 204H 05/17/21 05:30: Hemoglobin 10.5L, Hematocrit 34L, Sodium Level 140, Potassium Level 4.7, Chloride Level 107, Carbon Dioxide Level 21, Anion Gap 12, Blood Urea Nitrogen 22H, Creatinine 0.82, Estimat Glomerular Filtration Rate 82, BUN/Creatinine Ratio 27, Glucose Level 201H, Calcium Level 8.3L 05/17/21 11:50: Glucometer 191H 05/17/21 15:56: Glucometer 182H 05/17/21 20:25: Glucometer 161H 05/18/21 06:01: Glucometer 180H 05/18/21 06:42: White Blood Count 12.3H, Red Blood Count 3.62L, Hemoglobin 10.3L, Hematocrit 33L , Mean Corpuscular Volume 92, Mean Corpuscular Hemoglobin 29, Mean Corpuscular Hemoglobin Concent 31L, Red Cell Distribution Width 13.5, Platelet Count 200, Mean Platelet Volume 9.9, Immature Granulocyte % (Auto) 1, Neutrophils (%) (Auto) 78H, Lymphocytes (%) (Auto) 10L, Monocytes (%) (Auto) 11, Eosinophils (%) (Auto) 0, Basophils (%) (Auto) 0, Neutrophils # (Auto) 9.5H, Lymphocytes # (Auto) 1.3, Monocytes # (Auto) 1.4H, Eosinophils # (Auto) 0.0, Basophils # (Auto) 0.1, Immature Granulocyte # (Auto) 0.1, Sodium Level 135, Potassium Level 4.4, Chloride Level 104, Carbon Dioxide Level 19L, Anion Gap 12, Blood Urea Nitrogen 17, Creatinine 0.79, Estimat Glomerular Filtration Rate 86, BUN/Creatinine Ratio 22, Glucose Level 195H, Calcium Level 8.6, Corrected Calcium 9.4, Total Bilirubin 0.9, Aspartate Amino Transf (AST/SGOT) 20, Alanine Aminotransferase (ALT/SGPT) 28, Alkaline Phosphatase 98, Total Protein 5.6L, Albumin 3.0L 05/18/21 10:48: Glucometer 187H 05/18/21 15:40: Glucometer 142H 05/18/21 20:20: Glucometer 205H 05/19/21 05:07: Glucometer 181H 05/19/21 07:25: White Blood Count 11.4H, Red Blood Count 3.63L, Hemoglobin 10.3L, Hematocrit 32L , Mean Corpuscular Volume 88, Mean Corpuscular Hemoglobin 28, Mean Corpuscular Hemoglobin Concent 32, Red Cell Distribution Width 13.3, Platelet Count 198, Mean Platelet Volume 10.2, Immature Granulocyte % (Auto) 0, Neutrophils (%) (Auto) 78H, Lymphocytes (%) (Auto) 9L, Monocytes (%) (Auto) 12, Eosinophils (%) (Auto) 1, Basophils (%) (Auto) 0, Neutrophils # (Auto) 8.8H, Lymphocytes # (Auto) 1.0, Monocytes # (Auto) 1.4H, Eosinophils # (Auto) 0.1, Basophils # (Auto) 0.0, Immature Granulocyte # (Auto) 0.1, Sodium Level 136, Potassium Level 4.2, Chloride Level 103, Carbon Dioxide Level 20L, Anion Gap 13, Blood Urea Nitrogen 16, Creatinine 0.75, Estimat Glomerular Filtration Rate 91, BUN/Creatinine Ratio 21, Glucose Level 184H, Calcium Level 8.7, Corrected Calcium 9.7, Total Bilirubin 1.1H, Aspartate Amino Transf (AST/SGOT) 14, Alanine Aminotransferase (ALT/SGPT) 19, Alkaline Phosphatase 96, Total Protein 5.7L, Albumin 2.8L 05/19/21 11:21: Glucometer 202H 05/19/21 15:44: Glucometer 122H 05/19/21 21:36: Glucometer 160H 05/20/21 05:31: Glucometer 185H 05/20/21 06:06: White Blood Count 10.2, Red Blood Count 3.45L, Hemoglobin 9.8L, Hematocrit 30L, Mean Corpuscular Volume 88, Mean Corpuscular Hemoglobin 28, Mean Corpuscular Hemoglobin Concent 32, Red Cell Distribution Width 13.5, Platelet Count 233, Mean Platelet Volume 10.4, Immature Granulocyte % (Auto) 0, Neutrophils (%) (Auto) 75, Lymphocytes (%) (Auto) 11L, Monocytes (%) (Auto) 12, Eosinophils (%) (Auto) 1, Basophils (%) (Auto) 0, Neutrophils # (Auto) 7.7, Lymphocytes # (Auto) 1.1, Monocytes # (Auto) 1.2H, Eosinophils # (Auto) 0.1, Basophils # (Auto) 0.0, Immature Granulocyte # (Auto) 0.0, Sodium Level 137, Potassium Level 4.2, Chloride Level 103, Carbon Dioxide Level 23, Anion Gap 11, Blood Urea Nitrogen 26H, Creatinine 0.91, Estimat Glomerular Filtration Rate 72, BUN/Creatinine Ratio 29, Glucose Level 193H, Calcium Level 8.6, Corrected Calcium 9.6, Total Bilirubin 0.8, Aspartate Amino Transf (AST/SGOT) 14, Alanine Aminotransferase (ALT/SGPT) 16, Alkaline Phosphatase 96, Total Protein 5.7L, Albumin 2.8L 05/20/21 07:40: Glucometer 165H Microbiology 05/16/21 MRSA Screen - Final, Complete MRSA not isolated Pending Labs Microbiology Date/Time Source Procedure Growth Status 05/16/21 08:00 Nasal MRSA Screen - Final MRSA not isolated Complete Laboratory Tests 05/15/21 21:05: White Blood Count 9.6, Red Blood Count 5.08, Hemoglobin 14.0, Hematocrit 44, Mean Corpuscular Volume 86, Mean Corpuscular Hemoglobin 28, Mean Corpuscular Hemoglobin Concent 32, Red Cell Distribution Width 13.7, Platelet Count 357, Mean Platelet Volume 9.6, Immature Granulocyte % (Auto) 1, Neutrophils (%) (Auto) 64, Lymphocytes (%) (Auto) 23, Monocytes (%) (Auto) 8, Eosinophils (%) (Auto) 3, Basophils (%) (Auto) 1, Neutrophils # (Auto) 6.2, Lymphocytes # (Auto) 2.2, Monocytes # (Auto) 0.8, Eosinophils # (Auto) 0.3, Basophils # (Auto) 0.1, Immature Granulocyte # (Auto) 0.1, Prothrombin Time 12.6, INR Comment 0.9, Activated Partial Thromboplast Time 31, Sodium Level 140, Potassium Level 5.2, Chloride Level 104, Carbon Dioxide Level 21, Anion Gap 15, Blood Urea Nitrogen 29, Creatinine 1.28, Estimat Glomerular Filtration Rate 48, BUN/Creatinine Ratio 23, Glucose Level 289, Calcium Level 9.1, Corrected Calcium 9.2, Total Bilirubin 0.4, Aspartate Amino Transf (AST/SGOT) 18, Alanine Aminotransferase (ALT/SGPT) 19, Alkaline Phosphatase 117, Total Protein 7.2, Albumin 3.9 05/16/21 05:00: White Blood Count 10.9, Red Blood Count 4.22, Hemoglobin 12.0, Hematocrit 37, Mean Corpuscular Volume 88, Mean Corpuscular Hemoglobin 28, Mean Corpuscular Hem oglobin Concent 32, Red Cell Distribution Width 13.8, Platelet Count 312, Mean Platelet Volume 10.0, Sodium Level 141, Potassium Level 5.2, Chloride Level 107, Carbon Dioxide Level 21, Anion Gap 13, Blood Urea Nitrogen 29, Creatinine 1.07, Estimat Glomerular Filtration Rate 59, BUN/Creatinine Ratio 27, Glucose Level 329, Calcium Level 8.5, Mean Blood Glucose 206, Hemoglobin A1c 8.8 05/16/21 12:36: Glucometer 262 05/16/21 16:55: Glucometer 226 05/16/21 20:08: Glucometer 215 05/17/21 00:32: Glucometer 211 05/17/21 05:25: Glucometer 204 05/17/21 05:30: Hemoglobin 10.5, Hematocrit 34, Sodium Level 140, Potassium Level 4.7, Chloride Level 107, Carbon Dioxide Level 21, Anion Gap 12, Blood Urea Nitrogen 22, Creatinine 0.82, Estimat Glomerular Filtration Rate 82, BUN/Creatinine Ratio 27, Glucose Level 201, Calcium Level 8.3 05/17/21 11:50: Glucometer 191 05/17/21 15:56: Glucometer 182 05/17/21 20:25: Glucometer 161 05/18/21 06:01: Glucometer 180 05/18/21 06:42: White Blood Count 12.3, Red Blood Count 3.62, Hemoglobin 10.3, Hematocrit 33, Mean Corpuscular Volume 92, Mean Corpuscular Hemoglobin 29, Mean Corpuscular Hemoglobin Concent 31, Red Cell Distribution Width 13.5, Platelet Count 200, Mean Platelet Volume 9.9, Immature Granulocyte % (Auto) 1, Neutrophils (%) (Auto) 78, Lymphocytes (%) (Auto) 10, Monocytes (%) (Auto) 11, Eosinophils (%) (Auto) 0, Basophils (%) (Auto) 0, Neutrophils # (Auto) 9.5, Lymphocytes # (Auto) 1.3, Monocytes # (Auto) 1.4, Eosinophils # (Auto) 0.0, Basophils # (Auto) 0.1, Immature Granulocyte # (Auto) 0.1, Sodium Level 135, Potassium Level 4.4, Chloride Level 104, Carbon Dioxide Level 19, Anion Gap 12, Blood Urea Nitrogen 17, Creatinine 0.79, Estimat Glomerular Filtration Rate 86, BUN/Creatinine Ratio 22, Glucose Level 195, Calcium Level 8.6, Corrected Calcium 9.4, Total Bilirubin 0.9, Aspartate Amino Transf (AST/SGOT) 20, Alanine Aminotransferase (ALT/SGPT) 28, Alkaline Phosphatase 98, Total Protein 5.6, Albumin 3.0 05/18/21 10:48: Glucometer 187 05/18/21 15:40: Glucometer 142 05/18/21 20:20: Glucometer 205 05/19/21 05:07: Glucometer 181 05/19/21 07:25: White Blood Count 11.4, Red Blood Count 3.63, Hemoglobin 10.3, Hematocrit 32, Mean Corpuscular Volume 88, Mean Corpuscular Hemoglobin 28, Mean Corpuscular Hemoglobin Concent 32, Red Cell Distribution Width 13.3, Platelet Count 198, Mean Platelet Volume 10.2, Immature Granulocyte % (Auto) 0, Neutrophils (%) (Auto) 78, Lymphocytes (%) (Auto) 9, Monocytes (%) (Auto) 12, Eosinophils (%) (Auto) 1, Basophils (%) (Auto) 0, Neutrophils # (Auto) 8.8, Lymphocytes # (Auto) 1.0, Monocytes # (Auto) 1.4, Eosinophils # (Auto) 0.1, Basophils # (Auto) 0.0, Immature Granulocyte # (Auto) 0.1, Sodium Level 136, Potassium Level 4.2, Chloride Level 103, Carbon Dioxide Level 20, Anion Gap 13, Blood Urea Nitrogen 16, Creatinine 0.75, Estimat Glomerular Filtration Rate 91, BUN/Creatinine Ratio 21, Glucose Level 184, Calcium Level 8.7, Corrected Calcium 9.7, Total Bilirubin 1.1, Aspartate Amino Transf (AST/SGOT) 14, Alanine Aminotransferase (ALT/SGPT) 19, Alkaline Phosphatase 96, Total Protein 5.7, Albumin 2.8 05/19/21 11:21: Glucometer 202 05/19/21 15:44: Glucometer 122 05/19/21 21:36: Glucometer 160 05/20/21 05:31: Glucometer 185 05/20/21 06:06: White Blood Count 10.2, Red Blood Count 3.45, Hemoglobin 9.8, Hematocrit 30, Mean Corpuscular Volume 88, Mean Corpuscular Hemoglobin 28, Mean Corpuscular Hemoglobin Concent 32, Red Cell Distribution Width 13.5, Platelet Count 233, Mean Platelet Volume 10.4, Immature Granulocyte % (Auto) 0, Neutrophils (%) (Auto) 75, Lymphocytes (%) (Auto) 11, Monocytes (%) (Auto) 12, Eosinophils (%) (Auto) 1, Basophils (%) (Auto) 0, Neutrophils # (Auto) 7.7, Lymphocytes # (Auto) 1.1, Monocytes # (Auto) 1.2, Eosinophils # (Auto) 0.1, Basophils # (Auto) 0.0, Immature Granulocyte # (Auto) 0.0, Sodium Level 137, Potassium Level 4.2, Chloride Level 103, Carbon Dioxide Level 23, Anion Gap 11, Blood Urea Nitrogen 26, Creatinine 0.91, Estimat Glomerular Filtration Rate 72, BUN/Creatinine Ratio 29, Glucose Level 193, Calcium Level 8.6, Corrected Calcium 9.6, Total Bilirubin 0.8, Aspartate Amino Transf (AST/SGOT) 14, Alanine Aminotransferase (ALT/SGPT) 16, Alkaline Phosphatase 96, Total Protein 5.7, Albumin 2.8 05/20/21 07:40: Glucometer 165 Discharge Home Medications: Active Scripts Active Reported Atorvastatin Calcium 20 Mg Tablet 20 Mg PO HS LAST FILLED 12-18-2020 #3030 DAY SUPPLY Vitamin D3 (Cholecalciferol (Vitamin D3)) 125 Mcg Tablet 125 Mcg PO DAILY Vitamin C (Ascorbate Calcium) 500 Mg Tablet 500 Mg PO DAILY Tylenol Arthritis (Acetaminophen) 650 Mg Tablet.er 1,300 Mg PO Q8H PRN Multivitamin 1 Each Tablet 1 Each PO DAILY Celexa (Citalopram Hydrobromide) 20 Mg Tablet 20 Mg PO DAILY Bydureon Bcise (Exenatide Microspheres) 2 Mg/0.85 Ml Auto.injct 2 Mg SQ SUN Metoprolol Succinate 25 Mg Tab.er.24h 25 Mg PO DAILY Protonix (Pantoprazole Sodium) 40 Mg Tablet.dr 40 Mg PO DAILY Levemir Flextouch (Insulin Detemir) 100 Unit/1 Ml Insuln.pen 25 Unit SQ HS Novolog Flexpen (Insulin Aspart) 300 Units/3 Ml Solution 15 Units SQ AC Pregabalin 100 Mg Capsule 100 Mg PO BID Plavix (Clopidogrel Bisulfate) 75 Mg Tablet 75 Mg PO DAILY Aspirin EC (Aspirin) 81 Mg Tablet.dr 81 Mg PO DAILY Instructions to patient/family Please see electronic discharge instructions given to patient. MIYA CASTILLO DO May 20, 2021 05:51
[2021-05-20] MEDS: ASCORBIC ACID (VIT C) 500 MG TABLET PO SCH (06:07)
[2021-05-20] MEDS: MULTIVIT W/MINERALS TAB (THERAGRAN M) PO SCH (06:07)
[2021-05-20 06:11] LABS: BASOPHILS % (AUTO) 0 % (0-10); EOSINOPHILS # (AUTO) 0.1 10^3/uL (0.0-0.3); EOSINOPHILS % (AUTO) 1 % (0-10); HEMATOCRIT 30 % (35-52); HEMOGLOBIN 9.8 g/dL (11.5-16.0); LYMPHOCYTES # (AUTO) 1.1 10^3/uL (1.0-4.0); LYMPHOCYTES % (AUTO) 11 % (12-44); MEAN CORPUSCULAR HEMOGLOBIN 28 pg (25-34); MEAN CORPUSCULAR HGB CONC 32 g/dL (32-36); MEAN CORPUSCULAR VOLUME 88 fL (80-99); MEAN PLATELET VOLUME 10.4 fL (9.0-12.2); MONOCYTES # (AUTO) 1.2 10^3/uL (0.0-1.0); MONOCYTES % (AUTO) 12 % (0-12); NEUTROPHILS # (AUTO) 7.7 10^3/uL (1.8-7.8); NEUTROPHILS % (AUTO) 75 % (42-75); PLATELET COUNT 233 10^3/uL (130-400); WHITE BLOOD COUNT 10.2 10^3/uL (4.3-11.0)
[2021-05-20 06:35] LABS: ALBUMIN 2.8 GM/DL (3.2-4.5); POTASSIUM 4.2 MMOL/L (3.6-5.0)
[2021-05-20 06:36] LABS: CALCIUM 8.6 MG/DL (8.5-10.1)
[2021-05-20 06:37] LABS: TOTAL PROTEIN 5.7 GM/DL (6.4-8.2)
[2021-05-20 06:39] LABS: BILIRUBIN,TOTAL 0.8 MG/DL (0.1-1.0)
[2021-05-20 06:41] LABS: CREATININE SERUM 0.91 MG/DL (0.60-1.30)
[2021-05-20] MEDS: LACTOBACILLUS ACIDOPHILUS (PROBIOTIC) CAPSULE PO SCH (07:48)
[2021-05-20] MEDS: ASPIRIN E.C. 81 MG (ECOTRIN) TAB PO SCH (07:48)
[2021-05-20] MEDS: VITAMIN D3 125 MCG (5,000 UNITS) CAPSULE PO SCH (07:48)
[2021-05-20] MEDS: PANTOPRAZOLE 40 MG (PROTONIX) TAB PO SCH (07:48)
[2021-05-20] MEDS: PREGABALIN 100 MG (LYRICA) CAPSULE PO SCH (07:49)
[2021-05-20] MEDS: inSUlin ASPART (NovoLOG) 1 UNIT/0.01 ML (CHARGE PER UNIT) SC SCH (07:51)
[2021-05-20] MEDS: inSUlin ASPART (NovoLOG) 1 UNIT/0.01 ML (CHARGE PER UNIT) SQ SCH (07:51)
[2021-05-20 08:00] VITALS: BP 117/64
--- NOTE | 2021-05-20 08:22 | Progress Note - Ortho ---
Progress Note Subjective Date of Exam 05/20/21 Chief Complaint POD #4 L IT Fx s/p IM nailing HPI/Events since last exam slow progress with therapy, issues with pain control noted, remains positive Review of Systems - Allergies: Coded Allergies: cefdinir (Verified Adverse Reaction, Mild, NAUSEA, yeast infection, 11/08/19) Cephalosporins (Verified Adverse Reaction, Unknown, yeast infections, 11/08/19) Home Meds Reported Medications Atorvastatin Calcium (Atorvastatin Calcium) 20 Mg Tablet, 20 MG PO HS, TAB LAST FILLED 12-18-2020 #30 DAY SUPPLY 05/16/21 Cholecalciferol (Vitamin D3) (Vitamin D3) 125 Mcg Tablet, 125 MCG PO DAILY, TAB 12/18/20 Ascorbate Calcium (Vitamin C) 500 Mg Tablet, 500 MG PO DAILY, TAB 12/18/20 Acetaminophen (Tylenol Arthritis) 650 Mg Tablet.er, 1300 MG PO Q8H PRN for PAIN- MILD (1-4), TAB 12/18/20 Multivitamin (Multivitamin) 1 Each Tablet, 1 EACH PO DAILY, TAB 12/18/20 Citalopram Hydrobromide (Celexa) 20 Mg Tablet, 20 MG PO DAILY, TAB 12/18/20 Exenatide Microspheres (Bydureon Bcise) 2 Mg/0.85 Ml Auto.injct, 2 MG SQ SUN, ML 06/28/20 Metoprolol Succinate (Metoprolol Succinate) 25 Mg Tab.er.24h, 25 MG PO DAILY, TAB 04/02/20 Pantoprazole Sodium (Protonix) 40 Mg Tablet.dr, 40 MG PO DAILY, TAB 11/08/19 Insulin Detemir (Levemir Flextouch) 100 Unit/1 Ml Insuln.pen, 25 UNIT SQ HS, EA 08/01/19 Insulin Aspart (Novolog Flexpen) 300 Units/3 Ml Solution, 15 UNITS SQ AC, EA 08/01/19 Pregabalin (Pregabalin) 100 Mg Capsule, 100 MG PO BID, CAP 08/01/19 Clopidogrel Bisulfate (Plavix) 75 Mg Tablet, 75 MG PO DAILY, TAB 08/01/19 Aspirin (Aspirin EC) 81 Mg Tablet.dr, 81 MG PO DAILY, TAB 09/05/18 Discontinued Reported Medications L.acidoph & Paracasei,B.lactis (Probiotic) 1 Each Capsule, 1 EACH PO DAILY, CAP 12/18/20 Discontinued Scripts Metformin HCl (Metformin HCl ER) 500 Mg Tab.er.24, 500 MG PO BID, #1 TAB Hold Metformin for 48 hours Prov:JAVIER HERNANDEZ MD 12/18/20 Atorvastatin Calcium (Atorvastatin Calcium) 20 Mg Tablet, 20 MG PO HS, #20 TAB 4 Refills Prov:JAVIER HERNANDEZ MD 12/18/20 Ezetimibe (Ezetimibe) 10 Mg Tablet, 10 MG PO HS, #30 TAB 4 Refills Prov:JAVIER HERNANDEZ MD 12/18/20 Objective Exam L Hip: Dressing C/D/I, +DF of ankle, no s/s of DVT Vital Signs Vital Signs Date Time Temp Pulse Resp B/P (MAP) Pulse Ox O2 Delivery O2 Flow Rate FiO2 05/20/21 08:00 36.4 84 18 117/64 (81) 91 Nasal Cannula 3.00 05/20/21 07:48 Room Air 0.00 05/20/21 07:48 95 Nasal Cannula 3.00 05/20/21 04:00 36.6 75 18 130/77 (94) 93 Nasal Cannula 3.00 05/20/21 00:22 36.3 83 18 116/56 (76) 90 Nasal Cannula 3.00 05/19/21 20:11 36.4 71 22 127/58 (81) 96 Nasal Cannula 3.00 05/19/21 20:00 96 Room Air 05/19/21 15:41 37.0 79 21 117/59 (78) 97 Nasal Cannula 3.00 05/19/21 12:00 36.4 79 18 110/59 (76) 90 Nasal Cannula 3.00 I & O 05/20/21 07:00 Intake Total 700 ml Output Total 1430 ml Balance -730 ml Lab Results Laboratory Tests 05/19/21 11:21: Glucometer 202H 05/19/21 15:44: Glucometer 122H 05/19/21 21:36: Glucometer 160H 05/20/21 05:31: Glucometer 185H 05/20/21 06:06: White Blood Count 10.2, Red Blood Count 3.45L, Hemoglobin 9.8L, Hematocrit 30L, Mean Corpuscular Volume 88, Mean Corpuscular Hemoglobin 28, Mean Corpuscular Hemoglobin Concent 32, Red Cell Distribution Width 13.5, Platelet Count 233, M suly Platelet Volume 10.4, Immature Granulocyte % (Auto) 0, Neutrophils (%) (Auto) 75, Lymphocytes (%) (Auto) 11L, Monocytes (%) (Auto) 12, Eosinophils (%) (Auto) 1, Basophils (%) (Auto) 0, Neutrophils # (Auto) 7.7, Lymphocytes # (Auto) 1.1, Monocytes # (Auto) 1.2H, Eosinophils # (Auto) 0.1, Basophils # (Auto) 0.0, Immature Granulocyte # (Auto) 0.0, Sodium Level 137, Potassium Level 4.2, Chloride Level 103, Carbon Dioxide Level 23, Anion Gap 11, Blood Urea Nitrogen 26H, Creatinine 0.91, Estimat Glomerular Filtration Rate 72, BUN/Creatinine Ratio 29, Glucose Level 193H, Calcium Level 8.6, Corrected Calcium 9.6, Total Bilirubin 0.8, Aspartate Amino Transf (AST/SGOT) 14, Alanine Aminotransferase (ALT/SGPT) 16, Alkaline Phosphatase 96, Total Protein 5.7L, Albumin 2.8L 05/20/21 07:40: Glucometer 165H Microbiology 05/16/21 MRSA Screen - Final, Complete MRSA not isolated Assessment and Plan Assessment Left Intertrochanteric Femur Fracture s/p Intramedullary Nailing Problem List Left Intertrochanteric Femur Fracture s/p Intramedullary Nailing Plan Agree with inpatient rehab Continue DVT prophylaxis Discussed timeline for healing and overall improvement Final Diagonsis Left Intertrochanteric Femur Fracture s/p Intramedullary Nailing Level of the visit: Level 3 (postop global) NYLA DIAZ MD May 20, 2021 08:22
--- NOTE | 2021-05-20 08:58 | Cardiology Progress Note ---
Subjective Date Seen by Provider: May 20, 2021 Time Seen by Provider: 08:57 Subjective/Events-last exam Patient was seen in bed, feeling better today, no new complaint Review of Systems General: No Chills, No Night Sweats, No Fatigue, No Malaise, No Appetite, No Other HEENT: No Head Aches, No Visual Changes, No Eye Pain, No Ear Pain, No Dysphasia, No Sinus Congestion, No Post Nasal Drip, No Sore Throat, No Other Pulmonary: No Dyspnea, No Cough, No Pleuritic Chest Pain, No Other Cardiovascular: No: Chest Pain, Palpitations, Orthopnea, Paroxysmal Noc. Dyspnea, Edema, Lt Headedness, Other Objective-Cardiology Exam Last Set of Vital Signs Vital Signs 05/20/21 08:00 Temp 36.4 Pulse 84 Resp 18 B/P (MAP) 117/64 (81) Pulse Ox 91 O2 Delivery Nasal Cannula O2 Flow Rate 3.00 I&O Intake and Output 05/20/21 00:00 Intake Total 975 ml Output Total 1750 ml Balance -775 ml Intake Oral 975 ml Output Urine Total 1750 ml General: Alert, Oriented X3, Cooperative HEENT: Atraumatic, PERRLA Neck: Supple, No JVD, No Thyromegaly Lungs: Clear to Auscultation, Normal Air Movement Heart: Regular Rate, Normal S1, Normal S2, No Murmurs Abdomen: Normal Bowel Sounds, Soft, No Tenderness, No Hepatosplenomegaly, No Masses Extremities: No Clubbing, No Cyanosis, No Edema, Normal Pulses, No Tenderness/Swelling Skin: No Rashes, No Breakdown, No Significant Lesion Neuro: Normal Gait, Normal Speech, Strength at 5/5 X4 Ext, Normal Tone, Sensation Intact Psych/Mental Status: Mental Status NL, Mood NL Results Lab Laboratory Tests 05/20/21 06:06 A/P-Cardiology Admission Diagnosis Left hip fracture Coronary artery disease Hypertension Assessment/Plan Left hip fracture, status post surgical repair, recovering well and doing well, possible transfer to acute rehab. Coronary artery disease, History of cardiac catheterization in 2013 with the stent using Promus drug- eluting stent 2.25 x 16mm to the first diagonal branch, had moderate disease in the LAD with normal FFR. LHC on 12/18/20 showing severe stenosis in the distal LAD with successful primary stenting using skypoint 2.25 x23mm, moderate stenosis in the mid LAD, patent stent in the diagonal artery, nonobstructive dz. Moderate stenosis in the mid RCA, FFR 0.86. 2D Echo done August 2018 showing EF 55-65% History of CVA in 2019, mild residual left-sided weakness. Has been monitored and doing well History of loop implant done in August [address] Awad, monitoring showed brief episode of atrial fibrillation in the remote past. No further episodes noted. Hypertension, controlled continue on current medication Hyperlipidemia, maintained on statin. Unable to tolerate higher dose of statin d/t myalgias, was unable to tolerate Zetia d/t myalgias. Was started on Repatha DM, management per PCP. 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 ABIs done August 2020 WNL. Follows with wound care, reports wound almost completely healed. History of tobaccoism, stopped in the remote past. Ok to transfer to [facility] JAVIER HERNANDEZ MD May 20, 2021 08:58
== END 2021-05-20 09:30 | DRG 481 ==
LOC: EDUNIT# 20:58 → ER 21:00 → 4TH 21:46
PROVIDERS: ADMIT Family Medicine; ATTEND Internal Medicine
PROC: 0QS736Z Reposition Left Upper Femur with Intramedullary Internal Fixation Device, Percutaneous Approach (ICD-10-PCS; principal; 2021-05-16 11:08)
DX: S72.142A Displaced intertrochanteric fracture of left femur, initial encounter for closed fracture (principal); I69.354 Hemiplegia and hemiparesis following cerebral infarction affecting left non-dominant side; D62 Acute posthemorrhagic anemia; E78.2 Mixed hyperlipidemia; E11.42 Type 2 diabetes mellitus with diabetic polyneuropathy; I25.10 Atherosclerotic heart disease of native coronary artery without angina pectoris; I10 Essential (primary) hypertension; K21.9 Gastro-esophageal reflux disease without esophagitis; F41.9 Anxiety disorder, unspecified; F32.A Depression, unspecified; Z79.84 Long term (current) use of oral hypoglycemic drugs; Z79.4 Long term (current) use of insulin; Z89.412 Acquired absence of left great toe; Z87.891 Personal history of nicotine dependence; Z95.5 Presence of coronary angioplasty implant and graft; Z88.1 Allergy status to other antibiotic agents; Z79.82 Long term (current) use of aspirin; Z83.3 Family history of diabetes mellitus; Z81.8 Family history of other mental and behavioral disorders; W10.9XXA Fall (on) (from) unspecified stairs and steps, initial encounter
CPT/HCPCS: 36410; 36415; 71045; 73502; 76000; 76937; 80048; 80053; 82947; 83036; 85014; 85018; 85025; 85027; 85610; 85730; 87081; 93005; 94664; 94760

== ENCOUNTER 2021-05-20 09:17 | Inpatient (IN) | payer MEDICARE, OTHER ==
[~2021-05-20] VITALS: Ht 172.7 cm; Wt 103.8 kg
--- NOTE | 2021-05-20 09:21 | PM&R Post Admission Assessment ---
PM&R HP Date of Visit: May 20, 2021 Time of Visit: 12:00 History of Present Illness CC: Debility from left hip fracture HPI: This is a 61 yr old WF with past medical history of CVA with left sided weakness. She sustained a left hip fracture and is currently in need of aggressive recovery with in-patient rehab. PT and OT will be initiated and blood sugars will be monitored. She is insulin dependent. We will initiate Lovenox 40 mg subQ daily. Labs will be monitored. BP will be monitored. We will continue to regain independence with the use of assisted devices. She stopped smoking 2 years ago. Past Mzfvawp-Rgyphj-Xhjudl Hx Past Med/Social Hx: Reviewed Nursing Past Med/Soc Hx, Reviewed and Corrections made Patient Social History Marrital Status: Employed/Student: unemployed Alcohol Use: Denies Use Alcohol Beverage of Choice: Beer Smoking Status: Former Smoker Former Smoker, Quit: Jul 31, 2019 Type Used: Cigarettes 2nd Hand Smoke Exposure: Yes Recent Hopitalizations: Yes (JULY 2019-OSTEOMYELITIS) Immunizations Up To Date Tetanus Booster (TDap): Less than 5yrs Pediatric: No Date of Pneumonia Vaccine: Jul 30, 2009 Date of Influenza Vaccine: Nov 15, 2020 Seasonal Allergies Seasonal Allergies: Yes Past Medical History Surgeries: Amputation, Appendectomy, Bladder Surgery, Cardiac, Section, Coronary Stent, Gallbladder, Orthopedic, Renal Currently Using CPAP: No Currently Using BIPAP: No Cardiac: Coronary Artery Disease, Hypertension, Irregular Heartbeat Neurological: Neuropathy, Stroke Reproductive: No Sexually Transmitted Disease: No HIV/AIDS: No Female Reproductive Disorders: Denies Menopausal Genitourinary: UTI-Chronic Gastrointestinal: Colitis, Gastroesophageal Reflux, Gall Bladder Disease Musculoskeletal: Amputee Endocrine: Diabetes, Insulin dep Loss of Vision: Denies Hearing Impairment: Denies Psychosocial: Anxiety, Depression History of Blood Disorders: No Adverse Reaction to Blood Solitario: No Family History Arthritis Cataracts Diabetes mellitus 19 MOTHER FH: lupus 19 MOTHER Hypercholesterolemia Hypertension No Family History of: AIDS Abdominal aortic aneurysm Gustavo's disease Alcoholism Alzheimer's disease Aphasia Asthma Cancer of mouth Cardiovascular disease Colon cancer Completed stroke Congenital disease Congenital heart disease Coronary thrombosis Cystic fibrosis Deafness or hearing loss Dementia Drug abuse Dysphasia Fibrocystic disease of breast Gastroenteritis Glaucoma Headache disorder Infertility Kidney disease Myocardial infarction Neoplasm Not obtainable due to adoption Osteoporosis Parkinson's disease Prostate cancer Psychosocial problem Respiratory disorder Seizure disorder Severe allergy Thyroid disease Tuberculosis Visual disorder Diabetes, Hypertension, Other Conditions/Hx ADDITIONAL PAST MEDICAL/SURGICAL HISTORY: -RIGHT GREAT TOE AMPUTATION 08/02/2019 DUE TO OSTEOMYELITIS-DONE BY DR. SMITH -PERIPHERAL ANGIOGRAM 08/03/[address] GARRISON:FINDINGS: No significant disease in the distal abdominal aorta. Nonselective angiogram of the renal arteries showed bilateral patent renal arteries. Patent bilateral common iliac artery, external iliac artery, common femoral artery. Mild proximal left SFA disease. Patent left popliteal artery and three-vessel runoff below the knee. Patent right SFA, popliteal artery and three-vessel runoff below the knee. CONCLUSION: Minimal PAD. Continue secondary prevention measures. -LOOP RECORDER -CARDIAC CATH WITH STENT TO FIRST 2013 -KIDNEY AND BLADDER SURGERY CHILD -04/10/20--FLEXIBLE SIGMOIDOSCOPY BY DR. SMITH - -APPENDECTOMY -CHOLECYSTECTOMY PM&R Allergy/Meds/Data Review Allergies Coded Allergies: cefdinir (Verified Adverse Reaction, Mild, NAUSEA, yeast infection, 11/08/19) Cephalosporins (Verified Adverse Reaction, Unknown, yeast infections, 11/08/19) Home Medications Scheduled Ascorbate Calcium (Vitamin C), 500 MG PO DAILY, (Reported) Aspirin (Aspirin EC), 81 MG PO DAILY, (Reported) Atorvastatin Calcium (Atorvastatin Calcium), 20 MG PO HS, (Reported) Cholecalciferol (Vitamin D3) (Vitamin D3), 125 MCG PO DAILY, (Reported) Citalopram Hydrobromide (Celexa), 20 MG PO DAILY, (Reported) Clopidogrel Bisulfate (Plavix), 75 MG PO DAILY, (Reported) Exenatide Microspheres (Bydureon Bcise), 2 MG SQ SUN, (Reported) Insulin Aspart (Novolog Flexpen), 15 UNITS SQ AC, (Reported) Insulin Detemir (Levemir Flextouch), 25 UNIT SQ HS, (Reported) Metoprolol Succinate (Metoprolol Succinate), 25 MG PO DAILY, (Reported) Multivitamin (Multivitamin), 1 EACH PO DAILY, (Reported) Pantoprazole Sodium (Protonix), 40 MG PO DAILY, (Reported) Pregabalin (Pregabalin), 100 MG PO BID, (Reported) Scheduled PRN Acetaminophen (Tylenol Arthritis), 1,300 MG PO Q8H PRN for PAIN-MILD (1-4), (Reported) Discontinued Medications Atorvastatin Calcium (Atorvastatin Calcium), 20 MG PO HS Discontinued Reason: Duplicate Order Ezetimibe (Ezetimibe), 10 MG PO HS Discontinued Reason: No Longer Taking L.acidoph & Cassidy,B.lactis (Probiotic), 1 EACH PO DAILY, (Reported) Discontinued Reason: No Longer Taking Metformin HCl (Metformin HCl ER), 500 MG PO BID Current Medications Current Medications Reviewed Review of Systems Constitutional: see HPI, malaise, weakness EENTM: no symptoms reported Respiratory: no symptoms reported Cardiovascular: no symptoms reported Gastrointestinal: no symptoms reported Genitourinary: no symptoms reported Musculoskeletal: back pain, joint pain Skin: no symptoms reported Psychiatric/Neurological: Anxiety, Depressed All Other Systems Reviewed Negative Unless Noted: Yes Physical Exam Physical Exam Vital Signs Capillary Refill : Height, Weight, BMI Height: 5'8.00" Weight: 166lbs. 0.0oz. 75.274000yp; 32.41 BMI Method:Stated General Appearance: No Apparent Distress, WD/WN, Chronically ill, Obese Eyes: Bilateral Eye Normal Inspection, Bilateral Eye PERRL HEENT: PERRL/EOMI, Normal ENT Inspection, Pharynx Normal Neck: Full Range of Motion, Normal Inspection, Non Tender, Supple, Carotid Bruit Respiratory: Chest Non Tender, Lungs Clear, Normal Breath Sounds, No Accessory Muscle Use, No Respiratory Distress Cardiovascular: Regular Rate, Rhythm, No Edema, No Gallop, No JVD, No Murmur, Normal Peripheral Pulses Gastrointestinal: Normal Bowel Sounds, No Organomegaly, No Pulsatile Mass, Non Tender, Soft Back: Normal Inspection, No CVA Tenderness, No Vertebral Tenderness Extremity: Normal Capillary Refill, Normal Inspection, Normal Range of Motion (Except left leg), Non Tender, No Calf Tenderness, No Pedal Edema Neurologic/Psychiatric: Alert, Oriented x3, Normal Mood/Affect, picking tech II-XII Norm as Tested, Abnormal Gait, Depressed Affect, Motor Weakness (Left-sided weakness, generalized weakness) Skin: Normal Color, Warm/Dry Lymphatic: No Adenopathy PM&R Medical Assessment & Plan REHAB/MEDICAL ASSESSMENT AND PLAN: REHAB IMPAIRMENT GROUP: Left hip fracture ETIOLOGIC DIAGNOSIS: Left hip fracture The comorbidities that impact the patients function and/or functional outcome by: Insulin-dependent diabetes, previous stroke with left-sided weakness, previous CAD stent REHAB PLAN: The patient is being admitted to our comprehensive inpatient rehabilitation facility and can tolerate the intensity of service consisting of at least: 180 minutes of therapy a day, 5 out of 7 days a week Rehab treatment will consist of: PT and OT will focus on regaining function with assistive devices in order to increase independence in order to return back to independent living The patient/family has a good understanding of our discharge process and will benefit from an interdisciplinary inpatient rehabilitation program. The patient has potential to make improvement and is in need of at least two of the following multidisciplinary therapies including but not limited to physical, occupational, speech, and prosthetics and orthotics. Additionally the patient will need services from respiratory, nutritional services, wound care, psychology, etc. (Customize this to each patient). Given the patients complex condition and risk of further medical complications, rehabilitation services cannot be safely or effectively provided at a lower level of care such as a halfway facility. BARRIERS TO DISCHARGE: Left-sided weakness from prior CVA ESTIMATED LOS: 10 days DISPOSITION: Home with spouse RELEVANT CHANGES SINCE PREADMISSION SCREENING: I have compared the patients medical and functional status at the time of the preadmission screening and there are: No changes PROGNOSIS: Good REHABILITATION GOALS: 1.PT and OT will focus on regaining function with assistive devices in order to increase independence in order to return back to independent living All the above goals were reviewed with the patient and he/she is in agreement. By signing this document, I acknowledge that I have personally performed a full physical examination on this patient within 24 hours of admission to this inpatient rehabilitation facility and have determined the patient to be able to tolerate the above course of treatment at an intensive level for a reasonable period of time. I will be completing a detailed individualized Plan of Care for this patient by day #4 of the patients stay based upon the Preadmission Screen, the Post-Admission Evaluation, and the therapy evaluations. Admission Dx/Comorbidities: (1) Fracture, intertrochanteric, left femur Status: Acute ICD Codes: S72.142A - Displaced intertrochanteric fracture of left femur, initial encounter for closed fracture (2) History of stroke Status: Chronic ICD Codes: Z86.73 - Personal history of transient ischemic attack (TIA), and cerebral infarction without residual deficits (3) HTN (hypertension) Status: Chronic ICD Codes: I10 - Essential (primary) hypertension (4) CAD (coronary artery disease) Status: Chronic ICD Codes: I25.10 - Atherosclerotic heart disease of [place] coronary artery without angina pectoris (5) Diabetes Status: Chronic ICD Codes: E11.9 - Diabetes (6) Mixed hyperlipidemia ICD Codes: E78.2 - Mixed hyperlipidemia (7) Presence of stent in coronary artery ICD Codes: Z95.5 - Presence of coronary angioplasty implant and graft Assessment/Plan Assessment and Plan Assess & Plan/Chief Complaint Assessment: Left hip fracture status post repair postop day #4 DM on insulin Previous stroke with left-sided weakness Loop recorder in place Former smoker cessation 2 years ago Hyperlipidemia Hypertension CAD previous stent Postop acute blood loss anemia Great toe amputation Easily tearful since stroke Plan: Aggressive rehab Supportive care Monitor blood sugar Pain control MIYA CASTILLO DO May 20, 2021 09:21
[2021-05-20] MEDS ORDERED: CALCIUM CARBONATE 500 MG (TUMS) TAB.CHEW PO PRN (09:30)
[2021-05-20] MEDS ORDERED: diphenhydrAMINE 25 MG TAB (BENADRYL) PO PRN (09:30)
[2021-05-20] MEDS ORDERED: DOCUSATE SODIUM 100 MG (COLACE) CAP PO PRN (09:30)
[2021-05-20] MEDS ORDERED: FLEET ENEMA ADULT 1 EA BTL PR PRN (09:30)
[2021-05-20] MEDS ORDERED: MELATONIN 3 MG TABLET PO PRN (09:30)
[2021-05-20] MEDS ORDERED: BISACODYL 10 MG SUPP (DULCOLAX) PR PRN ×2 (09:30→10:15)
[2021-05-20] MEDS ORDERED: ALPRAZolam 0.25 MG (XANAX) TAB PO PRN (09:30)
[2021-05-20] MEDS ORDERED: ONDANSETRON 4 MG (ZOFRAN) ORAL DISSOLVE TAB PO PRN (09:30)
[2021-05-20] MEDS ORDERED: LOPERAMIDE 2 MG (IMODIUM) TABLET PO PRN (09:30)
[2021-05-20] MEDS ORDERED: LACTULOSE SYRUP 10GM/15ML (ENULOSE) 30ML UDC PO PRN (09:30)
[2021-05-20] MEDS ORDERED: guaiFENesin/CODEINE (ROBITUSSIN AC) 10ML UDC PO PRN (09:30)
[2021-05-20 10:00] VITALS: BP 100/54
[2021-05-20] MEDS ORDERED: NON-FORMULARY MEDICATION 1 EA EA (Exenatide Microspheres (Bydureon Bcise) 2 MG) SQ SCH (10:15)
[2021-05-20] MEDS ORDERED: ONDANSETRON 4 MG/2 ML (SDV) Z0FRAN IVP PRN (10:15)
[2021-05-20] MEDS: HYDROmorphone 2 MG/ML VIAL (DILAUDID) IV PRN ×2 (10:29→22:34)
[2021-05-20] MEDS ORDERED: ACETAMINOPHEN 325 MG TABLET PO PRN (10:30)
[2021-05-20] MEDS: ENOXAPARIN 40 MG/0.4 ML (LOVENOX) SYR SC SCH (10:32)
--- NOTE | 2021-05-20 10:34 | Physical Therapy Evaluation ---
PT Evaluation-General Medical Diagnosis Admission Date May 20, 2021 at 09:17 Medical Diagnosis: left hip fracture Onset Date: May 15, 2021 Therapy Diagnosis Therapy Diagnosis: impaired mobility/weakness Height/Weight Height (Feet): 5 Height (Inches): 8.00 Weight (Pounds): 166 Weight (Ounces): 0.0 Precautions Precautions/Isolations: Fall Prevention, Standard Precautions Weight Bear Status Right Lower Extremity: Right Full Weight Bearing Left Lower Extremity: Left Weight Bearing/Tolerated Referral Physician: Sivakumar Reason for Referral: Evaluation/Treatment Medical History Pertinent Medical History: CAD, CVA, DM, GERD, HTN, Smoking Current History s/p tripped and fell resulting in left hip fracture with IM repair Reviewed History: Yes Social History Home: Single Level Current Living Status: Spouse Entry Into Home: Stairs Without Railing PT Steps Into Home: 3 Prior Prior Level of Function SCALE: Activities may be completed with or without assistive devices. 9-Zsdhpybzvy-kcyrbvj completes the activity by him/herself with no assistance from a helper. 5-Set-up or Clean-up Assistance-helper sets up or cleans up; patient completes activity. [place] assists only prior to or following the activity. 4-Supervision or Touching Assistance-helper provides verbal cues and/or touching/steadying and/or contact guard assistance as patient completes activity. Assistance may be provided throughout the activity or intermittently. 3-Partial/Moderate Assistance-helper does LESS THAN HALF the effort. [place] lifts, holds or supports trunk or limbs, but provides less than half the effort. 2-Substantial/Maximal Assistance-helper does MORE THAN HALF the effort. [place] lifts or holds trunk or limbs and provides more than half the effort. 5-Kxuchuowh-jdmyor does ALL the effort. Patient does none of the effort to complete the activity. Or, the assistance of 2 or more helpers is required for the patient to complete the activity. If activity was not attempted, code reason: 7-Patient Refused. 9-Not Applicable-not attempted and the patient did not perform the activity before the current illness, exacerbation or injury. 10-Not Attempted due to Environmental Limitations-(lack of equipment, weather restraints, etc.). 88-Not Attempted due to Medical Conditions or Safety Concerns. Bed Mobility: 6 Transfers (B,C,W/C): 6 Gait: 6 Stairs: 6 Wheelchair Mobility: 9 Indoor Mobility (Ambulation): Independent Stairs: Independent Prior Devices Use: None PT Evaluation-Current Subjective Patient agrees to PT. Reports 7/10 left hip pain with medication issued prior. Pain Numeric Pain Scale: 7 Location: Left Location Body Site: Hip Pain Description: Acute Pt/Family Goals return to home with family JANETH Objective Patient Orientation: Normal For Age ROM/Strength ROM Lower Extremities right LE WFL/left LE limited due to hip pain and edema Strength Lower Extremities right knee flexion/extension 3+/5; hip flexion 3+/5; DF/PF 3+/5 left knee flexion/extension 3-/5; hip flexion 2+/5; DF/PF 3-/5 Integumentary/Posture Integumentary refer to nursing notes Bowel Incontinence: No Bladder Incontinence: No Posture WFL Neuromuscular (Tone, Coordination, Reflexes) grossly intact Sensory Vision: Functional Hearing: Functional Sensation Right Lower Extremit: Impaired Sensation Left Lower Extremity: Impaired Transfers Roll Left & Right (QC): 3 Sit to Lying (QC): 3 Lying to Sitting/Side of Bed(Q: 3 Sit to Stand (QC): 3 Chair/Vjm-er-Zxzmb Xfer(QC): 3 Toilet Transfer (QC): 3 Car Transfer (QC): 3 Gait Does the Patient Walk?: Yes Mode of Locomotion: Walk Anticipated Mode of Locomotion: Walk Walk 10 feet (QC): 3 Walk 50 ft with 2 Turns(QC): 88 Walk 150 ft (QC): 88 Walking 10ft/uneven surface-QC: 3 Distance: 15' x 6 Gait Assistive Device: FWW Comments/Gait Description very slow, antalgic step to gait sequence with difficulty weight shifting to left to advance right LE. Wheelchair Training Wheel 50 ft with 2 turns (QC): 9 Wheel 150 ft (QC): 9 Stairs #of Steps: 1 1 Step (curb) (QC): 3 4 Steps (QC): 88 12 Steps (QC): 88 Walking Assistive Device: Walker Balance Sitting Static: Normal Sitting Dynamic: Normal Standing Static: Fair Standing Dynamic: Fair Picking up an Object (QC): 88 Treatment Gait training 15' x 6 sets with seated recovery periods due to fatigue. Patient demonstrates step to gait sequence with difficulty weight shifting to left to advance right. Noted bilateral UE fatigue with FWW use. Patient requires time to complete all functional mobility. Assessment/Needs 61 y.o. female, will benefit from skilled PT to address functional strength and mobility to improve current LOF to safely return to home with family at maximum LOF. Patient is currently limited by left hip pain, weakness and impaired mobility. Rehab Potential: Fair PT Power Distributor Goals Mcc Goals PT Power Distributor Goals Time Frame: June 21, 2021 Roll Left & Right (QC): 6 Sit to Lying (QC): 6 Lying-Sitting on Side/Bed(QC): 6 Sit to Stand (QC): 6 Chair/Mvi-uh-Jonkl Xfer(QC): 6 Toilet Transfer (QC): 6 Car Transfer (QC): 6 Does the Patient Walk: Yes Walk 10 feet (QC): 6 Walk 50ft with 2 Turns (QC): 6 Walk 150 ft (QC): 6 Walking 10ft on Uneven Surface: 6 1 Step (curb) (QC): 6 4 Steps (QC): 6 12 Steps (QC): 6 Picking up an Object (QC): 6 Wheel 50 feet with 2 turns (QC: 9 Wheel 150 feet: 9 PT Plan Problem List Problem List: Activity Tolerance, Functional Strength, Balance, Gait, Transfer, Bed Mobility, ROM Treatment/Plan Treatment Plan: Continue Plan of Care Treatment Plan: Bed Mobility, Concurrent Therapy, Education, Functional Activity Marco Antonio, Functional Strength, Group Therapy, Gait, Safety, Therapeutic Exercise, Transfers Treatment Duration: June 21, 2021 Frequency: At least 5 of 7 days/Wk (IRF) Estimated Hrs Per Day: 1.5 hours per day Patient and/or Family Agrees t: Yes Safety Risks/Education Patient Education: Gait Training, Steps, Safety Issues Time/GCodes Time In: 917 Time Out: 1017 Total Billed Treatment Time: 60 Total Billed Treatment 1 visit EVModC 20 min GT x 3 40 min GEORGE STEPHENS PT May 20, 2021 10:34
[2021-05-20] MEDS: inSUlin ASPART (NovoLOG) 1 UNIT/0.01 ML (CHARGE PER UNIT) SC SCH ×3 (11:02→20:23)
--- NOTE | 2021-05-20 11:28 | Occupational Therapy Eval ---
OT Evaluation-General/PLF Medical Diagnosis Admission Date May 20, 2021 at 09:17 Medical Diagnosis: left hip fracture Onset Date: May 15, 2021 Therapy Diagnosis Therapy Diagnosis: Impaired adls, balance, strength, endurance Height/Weight Height (Feet): 5 Height (Inches): 8.00 Weight (Pounds): 166 Weight (Ounces): 0.0 Precautions Precautions/Isolations: Fall Prevention, Standard Precautions Weight Bear Status Weight Bearing Restriction: Weight Bearing/Tolerated Location Restriction: L LE Referral Physician: Sivakumar Referral Reason: Evaluation/Treatment Medical History Pertinent Medical History: CAD, CVA, DM, GERD, HTN, Smoking Current History s/p IM nailing. Per patient, she lives in a single story home with spouse, daughter and 2 grandchildren. She was indep with adls, cleaning, and cooking. Family members do laundry due to it being located in the basement. Pt owns a walker and a cane but was not using prior to admission. She reports residual weakness on L side from CVA in 2019. Reviewed History: Yes Social History Home: Single Level Current Living Status: Spouse Entry Into Home: Stairs Without Railing Steps Into Home: 3 ADL-Prior Level of Function SCALE: Activities may be completed with or without assistive devices. 3-Vkqsmlfqlq-qdiuxir completes the activity by him/herself with no assistance from a helper. 5-Set-up or Clean-up Assistance-helper sets up or cleans up; patient completes activity. [place] assists only prior to or following the activity. 4-Supervision or Touching Assistance-helper provides verbal cues and/or touching/steadying and/or contact guard assistance as patient completes activity. Assistance may be provided throughout the activity or intermittently. 3-Partial/Moderate Assistance-helper does LESS THAN HALF the effort. [place] lifts, holds or supports trunk or limbs, but provides less than half the effort. 2-Substantial/Maximal Assistance-helper does MORE THAN HALF the effort. [place] lifts or holds trunk or limbs and provides more than half the effort. 8-Rwzdzwnat-eyxwfe does ALL the effort. Patient does none of the effort to complete the activity. Or, the assistance of 2 or more helpers is required for the patient to complete the activity. If activity was not attempted, code reason: 7-Patient Refused. 9-Not Applicable-not attempted and the patient did not perform the activity before the current illness, exacerbation or injury. 10-Not Attempted due to Environmental Limitations-(lack of equipment, weather restraints, etc.). 88-Not Attempted due to Medical Conditions or Safety Concerns. DME/Equipment: Bath Bench, Grab Bars, Tub/Shower OT Current Status Subjective Pt verbalizes pain in L hip as 8/10 at rest. RN in to give meds towards beginning of session. Requires initial encouragement to participate. Appearance Pt returned to sitting in recliner, all needs within reach. Mental Status/Objective Patient Orientation: Person, Place, Situation Current Glasses/Contacts: No Hearing Aids: No Dentures/Partials: No Hand Dominance: Right Upper Extremity ROM WNL Upper Extremity Strength RUE: 4/5 throughout LUE: 3+/5 throughout ADL-Treatment Eating (QC): 6 Oral Hygiene (QC): 4 Shower/Bathe Self (QC): 3 Upper Body Dressing (QC): 10 Lower Body Dressing (QC): 2 On/Off Footwear (QC): 1 Toileting Hygiene (QC): 2 (per clinicl judgment) Pt reports 8/10 pain at therapy arrival. She requires initial encouragement to participate. Pt requests to defer shower due to pain, agreeable to sponge bath at chair level. Pt able to wash upper body and down to ankles with set up only. Assist needed to wash feet secondary to pain with bending. Pt may benefit from instruction on use of LHS. She stood with Mod A, able to wash front eleanor area by removing L hand from walker for a short time. Assist to wash buttocks. Unable to don bilateral socks. OT instructed and educated pt on use of sock aid. Post instruction, mod a still needed to don L sock secondary to inability to lift L foot off of the floor. Max a to thread Bilateral LE's into underwear, again needing more assist to lift L due to pain and weakness. Mod-max a to manage clothing up to waist with cues to remove one hand from walker at a time. No shirt/pants donned due to no appropriate size clothing available at time of eval. Other Treatments Pt stood x5. With first sit<>stand, pt CGA with use of chair lift and significant amount of lift.With each transfer, chair lowered until back to starting point. At starting point, pt requires mod a for initial boost. Once standing, pt is CGA. No LOB. Poor standing tolerance, 1-2 minute sitting rest break after each standing bout. While standing, pt shifted weight R/L, front/back, and removed unilateral UE support (L) to reach in multiple planes. Education on widening WILMER. Pt fearful when reaching too far out of WILMER, education for safety. Education OT Patient Education: Correct positioning, Disease process, Energy conservation, Modified ADL techniques, Progress toward Goal/Update tx plan, Purpose of tx/functional activities, Reviewed precautions, Rehab process, Safety issues, Transfer techniques, Use of adapted equipment Teaching Recipient: Patient Teaching Methods: Demonstration, Discussion Response to Teaching: Verbalize Understanding, Return Demonstration, Reinforcement Needed OT Short Term Goals Short Term Goals Time Frame: May 31, 2021 Eatin Oral hygiene: 5 Toileting hygiene: 4 Shower/bathe self: 3 Upper body dressin Lower body dressin Putting on/taking off footwear: 3 OT Rubber Roller Grinder Goals Rubber Roller Grinder Goals Time Frame: Jun 10, 2021 Eating (QC): 6 Oral Hygiene (QC): 6 Toileting Hygiene (QC): 6 Shower/Bathe Self (QC): 5 Upper Body Dressing (QC): 5 Lower Body Dressing (QC): 5 On/Off Footwear (QC): 5 1=Demonstrate adherence to instructed precautions during ADL tasks. 2=Patient will verbalize/demonstrate understanding of assistive devices/modifications for ADL. 3=Patient will improve strength/tolerance for activity to enable patient to perform ADL's. OT Education/Plan Problem List/Assessment Assessment: Decreased Activ Tolerance, Decreased UE Strength, Impaired Funct Balance, Impaired I ADL's, Impaired Self-Care Skills Discharge Recommendations Plan/Recommendations: Continue POC Therapy Discharge Recommendati: Post Acute OT (home health OT) Equpiment Recommendations-D/C: Carbon Cleaner, Sock Aide Treatment Plan/Plan of Care Treatment,Training & Education: Yes Patient would benefit from OT for education, treatment and training to promote independence in ADL's, mobility, safety and/or upper extremity function for ADL's. Plan of Care: ADL Retraining, Functional Mobility, Group Exercise/Act as Ind, UE Funct Exercise/Act Treatment Duration: Jun 10, 2021 Frequency: At least 5 of 7 days/Wk (IRF) Estimated Hrs Per Day: 1.5 hours per day (60-90 min/day) Rehab Potential: Fair Time/GCodes Start Time: 10:18 Stop Time: 11:30 Total Time Billed (hr/min): 72 Billed Treatment Time 1 visit EVM (10 min) ADL x3 (45 min) FA (17 min) Lynette Garcia OT May 20, 2021 11:28
--- NOTE | 2021-05-20 12:53 | ST Cognitive Linguistic Eval ---
Speech Evaluation-General Medical Diagnosis left hip fracture Onset Date: May 15, 2021 Therapy Diagnosis Therapy Diagnosis: Intact Cognitive Linguistic Skills Precautions Precautions: Fall Precautions/Isolations: Fall Prevention, Standard Precautions Referral Referring Physician: Dr. Haven Shaver Reason for Referral: Evaluation/Treatment Medical History Pertinent Medical History: CAD, CVA, DM, GERD, HTN, Smoking Current History The patient is a 61 year-old male with a past medical history significant for CA D, CVA, DM, GERD, HTN, and smoking, who presented to the acute rehabilitation floor following an IM nailing. Reviewed History: Yes Social History Current Living Status: Spouse Speech PLF-Current Status Prior Level of Function The patient was independent with ADL's prior to admission. The patient denied deficits in the areas of speech, language, cognition, or swallowing. Subjective The patient was seated upright in her recliner, awake and alert upon entrance to her room by the clinician. The patient greeted the clinician appropriately and was agreeable to participation in the cognitive linguistic evaluation. Language Eval: Auditory Comprehends Simple Yes/No Ques: Functional Indent/Objects Multiple Lindsay: Functional Ident/Pics in Multiple Lindsay: Functional Follows 1-Step Commands: Functional Follows Complex Directions: Functional Follows General Conversations: Functional Language Eval: Verbal Language Completes Spontaneous Greeting: Functional Produces Auto, Serial Info: Functional Imitates Simple Words/Phrases: Functional Word Finding: Functional Requests Basic Needs: Functional States Basic Personal Info: Functional Expresses Complex Ideas: Functional Language Evaluation: Reading Follows Simple Written Direct: Functional Language Evaluation: Writing Writes to Simple Dictation: Functional Cognitive Patient Orientation The patient was independently oriented to self, location, city, month, day of week, and year. Objective Cognitive Domain Attention: WNL Memory: WNL Problem Solving: Functional Executive Functions: WNL Visuospatial Skills: WNL Composite Severity Rating: WNL Clock Drawing Severity Rating: WNL Objective Formal/Standardized Tests [facility] Mental Status Exam (UMS) Results The patient demonstrated a results of 30/30 on the SLUMS correlating to a score of normal neurocognitive skills. Oral Motor/Speech Production The patient does not display dysarthria or apraxia of speech throughout the evaluation. The patient remains 100% intelligible in known and unknown contexts. Impression The patient displays neurocognitive skills within normal limits. Speech Patient Assess Expression of Ideas/Wants: Expression (4) Understanding Verbal Content: Understands (4) Brief Interview-Mental Status: Yes Repetition of Three Words: Three (3) Temporal Orientation: Year: Correct (3) Temporal Orientation: Month: Accurate within 5 days(2) Temporal Orientation: Day: Correct (1) Recall : Wear to say "Sock": Yes, no cue required (2) Recall : Color: Yes, no cue required (2) Recall : Bed: Yes, no cue required (2) Memory/Recall Ability: Current season, Location of own room, Staff names and faces, That he or she is in a hsp/hsp unit Speech-Plan Treatment Plan Speech Therapy Treatment Plan: Discontinue ST Treatment Duration: May 20, 2021 Frequency: 1 time per week Estimated Hrs Per Day: .5 hour per day Rehab Potential: Good Pt/Family Agrees to Plan: Yes Safety Risks/Education Teaching Recipient: Patient Teaching Methods: Discussion Response to Teaching: Verbalize Understanding Education Topics Provided: Results of QIAN LAMB Speech Therapy Time In: 11:30 Speech Therapy Time Out: 12:00 Total Billed Time: 30 Billed Treatment Time 1, SANA JENSEN ELIZABETH ST May 20, 2021 12:53
[2021-05-20] MEDS: LACTOBACILLUS ACIDOPHILUS (PROBIOTIC) CAPSULE PO SCH ×2 (13:19→18:11)
[2021-05-20] MEDS: inSUlin ASPART (NovoLOG) 1 UNIT/0.01 ML (CHARGE PER UNIT) SQ SCH ×2 (13:20→18:12)
--- NOTE | 2021-05-20 14:53 | Physical Therapy Daily Note ---
PT Daily Note-Current Subjective Upon arrival pt was located in recliner, talking with the director of social work. Pt was ready for PT. Pain Location: Left Location Body Site: Hip Comment: Pt reports pain, but was not rated. Mental Status Patient Orientation: Normal For Age Transfers SCALE: Activities may be completed with or without assistive devices. 7-Pqqrzjstkp-cuixhwl completes the activity by him/herself with no assistance from a helper. 5-Set-up or Clean-up Assistance-helper sets up or cleans up; patient completes activity. [place] assists only prior to or following the activity. 4-Supervision or Touching Assistance-helper provides verbal cues and/or touching/steadying and/or contact guard assistance as patient completes activity. Assistance may be provided throughout the activity or intermittently. 3-Partial/Moderate Assistance-helper does LESS THAN HALF the effort. [place] lifts, holds or supports trunk or limbs, but provides less than half the effort. 2-Substantial/Maximal Assistance-helper does MORE THAN HALF the effort. [place] lifts or holds trunk or limbs and provides more than half the effort. 6-Lwsrytjef-vssgxn does ALL the effort. Patient does none of the effort to complete the activity. Or, the assistance of 2 or more helpers is required for the patient to complete the activity. If activity was not attempted, code reason: 7-Patient Refused. 9-Not Applicable-not attempted and the patient did not perform the activity b efore the current illness, exacerbation or injury. 10-Not Attempted due to Environmental Limitations-(lack of equipment, weather restraints, etc.). 88-Not Attempted due to Medical Conditions or Safety Concerns. Weight Bearing Right Lower Extremity: Right Full Weight Bearing Left Lower Extremity: Left Weight Bearing/Tolerated Gait Training Gait Assistive Device: FWW Pt ambulated from recliner to bed. Exercises Supine Ex: Ankle pumps (15), Heel Slides, Hip abd/add (3 reps. Pt had muscle spasms in l hip during ex.) Seated Therapy Exercises: Ankle pumps (10), Long arc quads (10), Hip flexion (2 reps. Pt had dificulty with listing leg up.), Hamstring Curls (5) Assessment Current Status: Good Progress (Pt would benefit from more PT, to work on strength, transfers and activity tolerance.) PT Fpc Goals Fpc Goals PT Speech Therapist Early Intervention Goals Time Frame: June 21, 2021 Roll Left & Right (QC): 6 Sit to Lying (QC): 6 Lying-Sitting on Side/Bed(QC): 6 Sit to Stand (QC): 6 Chair/Yxm-qf-Jivvc Xfer(QC): 6 Toilet Transfer (QC): 6 Car Transfer (QC): 6 Does the Patient Walk: Yes Walk 10 feet (QC): 6 Walk 50ft with 2 Turns (QC): 6 Walk 150 ft (QC): 6 Walking 10ft on Uneven Surface: 6 1 Step (curb) (QC): 6 4 Steps (QC): 6 12 Steps (QC): 6 Picking up an Object (QC): 6 Wheel 50 feet with 2 turns (QC: 9 Wheel 150 feet: 9 PT Plan Problem List Problem List: Activity Tolerance, Functional Strength, Gait, Transfer Treatment/Plan Treatment Plan: Continue Plan of Care Treatment Plan: Bed Mobility, Concurrent Therapy, Education, Functional Activity Marco Antonio, Functional Strength, Group Therapy, Gait, Safety, Therapeutic Exercise, Transfers Treatment Duration: June 21, 2021 Frequency: At least 5 of 7 days/Wk (IRF) Estimated Hrs Per Day: 1.5 hours per day Patient and/or Family Agrees t: Yes Safety Risks/Education Patient Education: Gait Training, Transfer Techniques, Correct Positioning, Safety Issues Teaching Recipient: Patient Teaching Methods: Discussion Response to Teaching: Verbalize Understanding Time/GCodes Time In: 1425 Time Out: 1445 Total Billed Treatment Time: 20 Total Billed Treatment 1, EX 20. HENRY DEUTSCH PTA May 20, 2021 14:53
[2021-05-20] MEDS: ASPIRIN E.C. 81 MG (ECOTRIN) TAB PO SCH (18:11)
[2021-05-20 19:28] VITALS: BP 119/70
[2021-05-20] MEDS: PREGABALIN 100 MG (LYRICA) CAPSULE PO SCH (20:23)
[2021-05-20] MEDS: SENNA W/DOCUSATE (SENOKOT S) TABLET PO SCH (21:08)
[2021-05-20] MEDS: polyethylene glycoL POWDER 17 GM (MIRALAX) PACK PO SCH (21:08)
[2021-05-20] MEDS: DOCUSATE SODIUM 100 MG (COLACE) CAP PO SCH (21:08)
[2021-05-21 05:36] LABS: BASOPHILS # (AUTO) 0.1 10^3/uL (0.0-0.1); BASOPHILS % (AUTO) 1 % (0-10); EOSINOPHILS # (AUTO) 0.3 10^3/uL (0.0-0.3); EOSINOPHILS % (AUTO) 3 % (0-10); HEMATOCRIT 31 % (35-52); HEMOGLOBIN 9.9 g/dL (11.5-16.0); LYMPHOCYTES % (AUTO) 22 % (12-44); MEAN CORPUSCULAR HEMOGLOBIN 29 pg (25-34); MEAN CORPUSCULAR HGB CONC 33 g/dL (32-36); MEAN CORPUSCULAR VOLUME 88 fL (80-99); MEAN PLATELET VOLUME 10.2 fL (9.0-12.2); MONOCYTES % (AUTO) 11 % (0-12); NEUTROPHILS # (AUTO) 5.8 10^3/uL (1.8-7.8); NEUTROPHILS % (AUTO) 63 % (42-75); PLATELET COUNT 297 10^3/uL (130-400); WHITE BLOOD COUNT 9.2 10^3/uL (4.3-11.0)
[2021-05-21 05:46] LABS: ALBUMIN 2.8 GM/DL (3.2-4.5); POTASSIUM 4.2 MMOL/L (3.6-5.0)
[2021-05-21 05:47] LABS: CALCIUM 8.8 MG/DL (8.5-10.1)
[2021-05-21 05:49] LABS: TOTAL PROTEIN 5.9 GM/DL (6.4-8.2)
[2021-05-21 05:50] LABS: BILIRUBIN,TOTAL 0.8 MG/DL (0.1-1.0)
[2021-05-21 05:52] LABS: CREATININE SERUM 0.96 MG/DL (0.60-1.30)
[2021-05-21] MEDS: inSUlin ASPART (NovoLOG) 1 UNIT/0.01 ML (CHARGE PER UNIT) SC SCH ×4 (06:36→20:45)
[2021-05-21] MEDS: ASCORBIC ACID (VIT C) 500 MG TABLET PO SCH (06:37)
[2021-05-21] MEDS: inSUlin ASPART (NovoLOG) 1 UNIT/0.01 ML (CHARGE PER UNIT) SQ SCH ×3 (06:37→18:19)
[2021-05-21] MEDS: MULTIVIT W/MINERALS TAB (THERAGRAN M) PO SCH (06:37)
--- NOTE | 2021-05-21 07:07 | Individualized Plan of Care ---
Individualized Plan of Care Rehab Nursing IPOC Order Admission Date May 20, 2021 at 09:17 Current Orders Orders Admission Order(Inpt,Obs,Sdc) (05/20/21 09:21) Vital Signs: Per Unit Policy ( ,16,00 (05/20/21 09:21) Rk [place] (05/20/21 09:21) Sequential Compression Device (05/20/21 09:21) Analytical Research Chemist-Inpt Rehab Con (05/20/21 09:21) Rehab Nursing Orders-Ipoc (05/20/21 09:21) Physical Therapy Rehab Orders (05/20/21 09:21) Occupational Therapy Rehab Ord (05/20/21 09:21) Speech Therapy Rehab Orders (05/20/21:21) Cbc With Automated Diff (05/21/21 06:00) Comprehensive Metabolic Panel (05/21/21 06:00) Precautions (Aru) (05/20/21 09:21) Weekly Weight WEEK (05/20/21 09:21) Rehab-Intensity Of Therapy (05/20/21 09:21) Initiate Admission Nursing Pro .admission (05/20/21 09:21) Alprazolam Tablet (Xanax Tablet) (05/20/21 09:30) Calcium Carbonate Chew Tablet (Antacid C (05/20/21 09:30) Diphenhydramine Tablet (Benadryl Tablet) (05/20/21 09:30) Docusate Sodium Capsule (Colace Capsule) (05/20/21 21:00) Docusate Sodium Capsule (Colace Capsule) (05/20/21 09:30) Bisacodyl Suppository (Dulcolax Supposit (05/20/21 09:30) Lactulose Oral Solution (Enulose Oral So (05/20/21 09:30) Na Phos/Na Biphos Enema (Fleet Enema [place] (05/20/21 09:30) Guaifenesin/Codeine Syrup (Robitussin Ac (05/20/21 09:30) Loperamide Tablet (Imodium Tablet) (05/20/21 09:30) Melatonin Tablet (Melatonin Tablet) (05/20/21 09:30) Polyethylene Glycol Powder Pkt (Miralax (05/20/21 21:00) Ondansetron Oral Dissolve Tab (Zofran (05/20/21 09:30) Senna S Tablet (Senokot S Tablet) (05/20/21 21:00) Acetaminophen Tablet/Caplet (Tylenol T (05/20/21 09:30) Code/Resuscitation (05/20/21 09:21) Initiate Admission Nursing Pro .admission (05/20/21 09:21) Accucheck Achs ACHS (05/20/21 09:21) Admission Arrival Bed Request (05/20/21 09:39) Incentive Spirometry (Nursing) Q2H (05/20/21 10:13) Midline Cap Change Q7D (05/20/21 10:13) Midline Dressing Change Q7D (05/20/21 10:13) Oxygen-Administer 07,19 (05/20/21 10:13) Sequential Compression Device (05/20/21 10:13) Cho 60g/M 0snack (16-2000 [place]) (05/20/21 Lunch) Acetaminophen Tablet/Caplet (Tylenol T (05/20/21 10:30) (Nf) Exenatide Microspheres (Bydureon Bc (05/20/21 10:15) Ascorbic Acid Tablet (Vitamin C Tablet) (05/21/21 07:00) Aspirin Enteric Coated Tablet (Ecotrin T (05/20/21 18:00) Atorvastatin Tablet (Lipitor Tablet) (05/20/21 21:00) Citalopram Tablet (Celexa Tablet) (05/21/21 09:00) Cholecalciferol Capsule/Tablet (Vitamin (05/21/21 09:00) Hydromorphone Injection (Dilaudid Inject (05/20/21 10:15) Lactobacillus Acidophilus Cap (Acidophil (05/20/21 13:00) Insulin Aspart (Novolog) (Novolog (Charg (05/20/21 11:00) Pantoprazole Tablet (Protonix Tablet) (05/21/21 09:00) Pregabalin Capsule (Lyrica Capsule) (05/20/21 21:00) Therapeutic Multivitamin Tab (Vitamins, (05/21/21 07:00) Ondansetron Injection (Zofran Injectio (05/20/21 10:15) Insulin Aspart (Novolog) (Novolog (Charg (05/20/21 12:00) Insulin Determir (Per Unit) (Levemir (Pe (05/20/21 21:00) Metoprolol Succinate (Xl) Tab (Toprol Xl (05/21/21 09:00) Oxycodone Immediate Rel Tablet (Oxyir Ta (05/20/21 10:15) Consult Physician (05/20/21 10:13) Enoxaparin Injection (Lovenox Injection (05/20/21 10:15) Patient Visit (05/20/21 ) Speech Sound Lang Comp (05/20/21 ) Treat. Speech/Lang/Voice (05/20/21 ) Patient Visit (05/20/21 ) Pt Eval Moderate Complexity (05/20/21 ) Gait Training, Ea 15 Min (05/20/21 ) Patient Visit (05/20/21 ) Exercise Therap, Ea 15 Min (05/20/21 ) Straight Cath (Urinary) (05/21/21 09:56) Urinalysis (05/21/21 13:00) Rk [place] (05/21/21 09:56) Patient May Use Own Med,Single (Patient (05/21/21 11:15) Patient May Use Own Med,Single (Patient (05/21/21 11:15) Non-Formulary Medication (Non-Formulary (05/21/21 11:15) Non-Formulary Medication (Non-Formulary (05/24/21 09:00) Patient Visit (05/21/21 ) Exercise Therap, Ea 15 Min (05/21/21 ) Gait Training, Ea 15 Min (05/21/21 ) Urine Culture (05/21/21 13:00) Patient's Own Med(Rx Use Only) (Patient' (05/21/21 15:30) Rehab Nursing Orders: Ongoing Assess. of Cognitive Status, Ongoing Assess. of Function Status, Bladder Management, Bladder Scan, Bladder Training, Bowel Management, Bowel Training, Disease Management & Educaiton, DVT Prophylaxis, Fall Prevention, Fluid/Electrolyte/Nutrition Mgmt, Infection Prevention, Medication Management & Education, Management of Risks & Complications, Management of Skin Intergrity, Nutrition Management, Pain Management, Patient/Family Support, Safety Management Intensity of Therapy to be met Patient to be seen: Min.3h per day/5 of 7d PT IPOC Problem List: Activity Tolerance, Functional Strength, Gait, Transfer Treatment Plan: Continue Plan of Care Bed Mobility, Concurrent Therapy, Education, Functional Activity Marco Antonio, Functional Strength, Group Therapy, Gait, Safety, Therapeutic Exercise, Transfers Treatment Duration: June 21, 2021 Frequency: At least 5 of 7 days/Wk (IRF) Estimated Hrs Per Day: 1.5 hours per day OT IPOC Problems: Decreased Activ Tolerance, Decreased UE Strength, Impaired Funct Balance, Impaired I ADL's, Impaired Self-Care Skills OT Treatment, Training and Edu: Yes Plan of Care: ADL Retraining, Functional Mobility, Group Exercise/Act as Ind, UE Funct Exercise/Act Treatment Duration: Jun 10, 2021 Frequency: At least 5 of 7 days/Wk (IRF) Estimated Hrs Per Day: 1.5 hours per day (60-90 min/day) ST IPOC Speech Therapy Treatment Plan: Discontinue ST Treatment Duration: May 20, 2021 Frequency: 1 time per week Estimated Hrs Per Day: .5 hour per day Analytical Research Chemist/Case Mgmt Analytical Research Chemist/Case Managemen: Discharge Planning Dietitian/Patroller Dietitian/Patroller to monitor nutritional status and make changes and/or recommendations as needed and work with speech pathology on dietary upgrades as the occur. Physician IPOC Medical Issues being managed closely and that require the 24 hour availability of a physician: Recent hip fracture on side affected by prior stroke with abnormal UA and labile blood sugars will require close monitoring for any decompensation Medical Issues: Bowel/Bladder Function, DVT Prophylaxis, Falls Precautions, Fluid/Electrolyte/Nutrition Balance, Infection Protection, Pain Management, Wound Care Brief Synthesis of Preadmission Screen, Post-Admission Evaluation, and Therapy Evaluations: PT and OT will focus on regaining function of left hip status post fracture repair on same side which is still waiting from CVA with use of assistive devices in order to regain enough independent function return home Medical Prognosis: Good Anticipated Length of Stay: 10 days MIYA CASTILLO DO May 21, 2021 07:07
--- NOTE | 2021-05-21 07:07 | PM&R Progress Note ---
Subjective HPI/CC On Admission Date Seen by Provider: May 21, 2021 Time Seen by Provider: 09:30 Subjective/Events-last exam 05/21/2021: Pt is doing a lot better JENNA hose and LUCY wraps will be given for lower extremity edema Will discontinue Statin due to myositis Will bring in her Repatha injection home dosing to take that UA will be ordered for an in and out specimen since her urine seems to be thick and malodorous Overall tolerating therapy Review of Systems General: Fatigue, Malaise Musculoskeletal: leg pain Objective Exam Vital Signs Vital Signs Date Time Temp Pulse Resp B/P (MAP) Pulse Ox O2 Delivery O2 Flow Rate FiO2 05/21/21 21:05 94 Room Air 05/21/21 20:02 36.1 68 18 115/71 (86) Capillary Refill : General Appearance: No Apparent Distress, WD/WN, Chronically ill, Obese HEENT: PERRL/EOMI, Normal ENT Inspection, Pharynx Normal Neck: Full Range of Motion, Normal Inspection, Non Tender, Supple, Carotid Bruit Respiratory: Chest Non Tender, Lungs Clear, Normal Breath Sounds, No Accessory Muscle Use, No Respiratory Distress Cardiovascular: Regular Rate, Rhythm, No Edema, No Gallop, No JVD, No Murmur, Normal Peripheral Pulses Gastrointestinal: Normal Bowel Sounds, No Organomegaly, No Pulsatile Mass, Non Tender, Soft Back: Normal Inspection, No CVA Tenderness, No Vertebral Tenderness Extremity: Normal Capillary Refill, Normal Inspection, Normal Range of Motion (Except left leg), Non Tender, No Calf Tenderness, No Pedal Edema Neurologic/Psychiatric: Alert, Oriented x3, Normal Mood/Affect, rental representative II-XII Norm as Tested, Abnormal Gait, Depressed Affect, Motor Weakness (Left-sided weakness, generalized weakness) Skin: Normal Color, Warm/Dry Lymphatic: No Adenopathy Results/Procedures Lab Laboratory Tests 05/21/21 05:30 Patient resulted labs reviewed. FIM Transfers Therapy Code Descriptions/Definitions Functional [place] Measure: 0=Not Assessed/NA 4=Minimal Assistance 1=Total Assistance 5=Supervision or Setup 2=Maximal Assistance 6=Modified [place] 3=Moderate Assistance 7=Complete IndependenceSCALE: Activities may be completed with or without assistive devices. 7-Uovlnuvhak-irvkded completes the activity by him/herself with no assistance from a helper. 5-Set-up or Clean-up Assistance-helper sets up or cleans up; patient completes activity. [place] assists only prior to or following the activity. 4-Supervision or Touching Assistance-helper provides verbal cues and/or touching/steadying and/or contact guard assistance as patient completes activity. Assistance may be provided throughout the activity or intermittently. 3-Partial/Moderate Assistance-helper does LESS THAN HALF the effort. [place] lifts, holds or supports trunk or limbs, but provides less than half the effort. 2-Substantial/Maximal Assistance-helper does MORE THAN HALF the effort. [place] lifts or holds trunk or limbs and provides more than half the effort. 0-Pkuwisqxh-rvwsth does ALL the effort. Patient does none of the effort to complete the activity. Or, the assistance of 2 or more helpers is required for the patient to complete the activity. If activity was not attempted, code reason: 7-Patient Refused. 9-Not Applicable-not attempted and the patient did not perform the activity before the current illness, exacerbation or injury. 10-Not Attempted due to Environmental Limitations-(lack of equipment, weather restraints, etc.). 88-Not Attempted due to Medical Conditions or Safety Concerns. Roll Left to Right (QC): 3 Sit to Lying (QC): 3 Sit to Stand (QC): 3 Chair/Hul-ex-Xxtfo Xfer(QC): 3 Car Transfer (QC): 3 Gait Training Does the Patient Walk?: Yes Walk 10 feet (QC): 3 Walk 50 ft with 2 Turns(QC): 88 Walk 150 ft (QC): 88 Walking 10ft/uneven surface-QC: 3 Gait Assistive Device: FWW Wheelchair Training Does the Pt Use a Wheelchair?: No Wheel 50 ft with 2 turns (QC): 9 Wheel 150 ft (QC): 9 Stair Training #of Steps: 1 1 Step (curb) (QC): 3 4 Steps (QC): 88 12 Steps (QC): 88 Balance Picking up an Object (QC): 88 ADL-Treatment Eating (QC): 6 Oral Hygiene (QC): 4 Shower/Bathe Self (QC): 3 Upper Body Dressing (QC): 10 Lower Body Dressing (QC): 2 On/Off Footwear (QC): 1 Toileting Hygiene (QC): 2 (per clinicl judgment) Assessment/Plan Assessment and Plan Assess & Plan/Chief Complaint Assessment: Left hip fracture status post repair postop day #5 DM on insulin Previous stroke with left-sided weakness Loop recorder in place Former smoker cessation 2 years ago Hyperlipidemia Hypertension CAD previous stent Postop acute blood loss anemia Great toe amputation Easily tearful since stroke Abnormal UA await urine culture since just completed antibiotic Plan: Aggressive rehab Supportive care Monitor blood sugar Pain control 05/21/2021: Supportive care Hold rapid acting insulin for sugar less than 130 Await urine culture (1) Fracture, intertrochanteric, left femur Status: Acute (2) History of stroke Status: Chronic (3) HTN (hypertension) Status: Chronic (4) CAD (coronary artery disease) Status: Chronic (5) Diabetes Status: Chronic (6) Mixed hyperlipidemia (7) Presence of stent in coronary artery MIYA CASTILLO DO May 21, 2021 07:07
[2021-05-21 07:54] VITALS: BP 119/57
[2021-05-21] MEDS: ASPIRIN E.C. 81 MG (ECOTRIN) TAB PO SCH ×2 (07:58→18:18)
[2021-05-21] MEDS: LACTOBACILLUS ACIDOPHILUS (PROBIOTIC) CAPSULE PO SCH ×3 (07:58→18:18)
[2021-05-21] MEDS: VITAMIN D3 125 MCG (5,000 UNITS) CAPSULE PO SCH (07:59)
[2021-05-21] MEDS: PREGABALIN 100 MG (LYRICA) CAPSULE PO SCH ×2 (07:59→20:43)
[2021-05-21] MEDS: PANTOPRAZOLE 40 MG (PROTONIX) TAB PO SCH (07:59)
[2021-05-21] MEDS: DOCUSATE SODIUM 100 MG (COLACE) CAP PO SCH ×2 (08:00→20:43)
[2021-05-21] MEDS: polyethylene glycoL POWDER 17 GM (MIRALAX) PACK PO SCH ×2 (08:00→21:18)
[2021-05-21] MEDS: SENNA W/DOCUSATE (SENOKOT S) TABLET PO SCH ×2 (08:00→21:18)
--- NOTE | 2021-05-21 09:08 | Physical Therapy Daily Note ---
PT Daily Note-Current Subjective Pt. agreed to Tx, pt. states she has had an extraordinary experience with pain and has much difficulty getting it under control. Pt. rates pain at 8/10 beginning of Tx. Off and on during Tx pt. c/o cramping or spasm in left hamstring. Nursing in room and dispensed pain meds. Pt. stated after Tx that she felt she is making progress Pain Numeric Pain Scale: 8 Location: Left Location Body Site: Hip Pain Description: Ache Mental Status Patient Orientation: Normal For Age Transfers SCALE: Activities may be completed with or without assistive devices. 8-Zyhrrlykea-wsvaave completes the activity by him/herself with no assistance from a helper. 5-Set-up or Clean-up Assistance-helper sets up or cleans up; patient completes activity. [place] assists only prior to or following the activity. 4-Supervision or Touching Assistance-helper provides verbal cues and/or touching/steadying and/or contact guard assistance as patient completes activity. Assistance may be provided throughout the activity or intermittently. 3-Partial/Moderate Assistance-helper does LESS THAN HALF the effort. [place] lifts, holds or supports trunk or limbs, but provides less than half the effort. 2-Substantial/Maximal Assistance-helper does MORE THAN HALF the effort. [place] lifts or holds trunk or limbs and provides more than half the effort. 7-Nhwmfsshl-bgpgav does ALL the effort. Patient does none of the effort to complete the activity. Or, the assistance of 2 or more helpers is required for the patient to complete the activity. If activity was not attempted, code reason: 7-Patient Refused. 9-Not Applicable-not attempted and the patient did not perform the activity before the current illness, exacerbation or injury. 10-Not Attempted due to Environmental Limitations-(lack of equipment, weather restraints, etc.). 88-Not Attempted due to Medical Conditions or Safety Concerns. Roll Left & Right (QC): 3 Sit to Lying (QC): 3 Lying to Sitting/Side of Bed(Q: 3 Sit to Stand (QC): 4 Chair/Bpd-cd-[place] Xfer(QC): 4 emphasis on sup to sit TRFs at mat in gym Weight Bearing Right Lower Extremity: Right Full Weight Bearing Left Lower Extremity: Left Weight Bearing/Tolerated Gait Training Does the Patient Walk?: Yes Walk 10 feet (QC): 4 Walk 50 ft with 2 Turns(QC): 4 Gait Persons Needed: 1 Gait Assistive Device: FWW slow, heavy weight bearing on FWW, equal but decreased step length Exercises Supine Ex: Ankle pumps, Heel Slides, Short Arc Quads, Scooting, Hip abd/add Supine Reps: 12 Seated Therapy Exercises: Ankle pumps, Sit to stand, Long arc quads, Hip flexion, Hip abd/add Seated Reps: 12 Assessment Current Status: Good Progress progressing slowly in all areas of Tx PT Licensed Mental Health Professional Goals Senior Care Goals PT Licensed Mental Health Professional Goals Time Frame: June 21, 2021 Roll Left & Right (QC): 6 Sit to Lying (QC): 6 Lying-Sitting on Side/Bed(QC): 6 Sit to Stand (QC): 6 Chair/Ofy-it-Drmtr Xfer(QC): 6 Toilet Transfer (QC): 6 Car Transfer (QC): 6 Does the Patient Walk: Yes Walk 10 feet (QC): 6 Walk 50ft with 2 Turns (QC): 6 Walk 150 ft (QC): 6 Walking 10ft on Uneven Surface: 6 1 Step (curb) (QC): 6 4 Steps (QC): 6 12 Steps (QC): 6 Picking up an Object (QC): 6 Wheel 50 feet with 2 turns (QC: 9 Wheel 150 feet: 9 PT Plan Treatment/Plan Treatment Plan: Continue Plan of Care Treatment Plan: Bed Mobility, Concurrent Therapy, Education, Functional Activity Marco Antonio, Functional Strength, Group Therapy, Gait, Safety, Therapeutic Exercise, Transfers Treatment Duration: June 21, 2021 Frequency: At least 5 of 7 days/Wk (IRF) Estimated Hrs Per Day: 1.5 hours per day Patient and/or Family Agrees t: Yes Safety Risks/Education Patient Education: Gait Training, Transfer Techniques, Correct Positioning, Disease Process, Safety Issues Teaching Recipient: Patient Teaching Methods: Demonstration, Discussion Response to Teaching: Verbalize Understanding, Return Demonstration, Reinforcement Needed Time/GCodes Time In: 800 Time Out: 900 Total Billed Treatment Time: 60 Total Billed Treatment 1,EX25m,FA15m,GT20m ARAMIS LARA FINAL EXPENSE AGENT May 21, 2021 09:07
[2021-05-21] MEDS: ENOXAPARIN 40 MG/0.4 ML (LOVENOX) SYR SC SCH (10:28)
--- NOTE | 2021-05-21 11:06 | Occupational Ther Daily Note ---
OT Current Status-Daily Note Subjective Pt up in recliner, agreeable to OT Tx. Mental Status/Objective Patient Orientation: Normal For Age ADL-Treatment Therapy Code Descriptions/Definitions Functional [place] Measure: 0=Not Assessed/NA 4=Minimal Assistance 1=Total Assistance 5=Supervision or Setup 2=Maximal Assistance 6=Modified [place] 3=Moderate Assistance 7=Complete IndependenceSCALE: Activities may be completed with or without assistive devices. 6-Jnilhjaccq-bycwbvi completes the activity by him/herself with no assistance from a helper. 5-Set-up or Clean-up Assistance-helper sets up or cleans up; patient completes activity. [place] assists only prior to or following the activity. 4-Supervision or Touching Assistance-helper provides verbal cues and/or touching/steadying and/or contact guard assistance as patient completes activity. Assistance may be provided throughout the activity or intermittently. 3-Partial/Moderate Assistance-helper does LESS THAN HALF the effort. [place] lifts, holds or supports trunk or limbs, but provides less than half the effort. 2-Substantial/Maximal Assistance-helper does MORE THAN HALF the effort. [place] lifts or holds trunk or limbs and provides more than half the effort. 8-Juiajpwzc-wjywrq does ALL the effort. Patient does none of the effort to complete the activity. Or, the assistance of 2 or more helpers is required for the patient to complete the activity. If activity was not attempted, code reason: 7-Patient Refused. 9-Not Applicable-not attempted and the patient did not perform the activity before the current illness, exacerbation or injury. 10-Not Attempted due to Environmental Limitations-(lack of equipment, weather restraints, etc.). 88-Not Attempted due to Medical Conditions or Safety Concerns. Oral Hygiene (QC): 6 (seated at sink) Shower/Bathe Self (QC): 3 (assist to wash/dry buttocks. Pt able to use LH sponge for LEs.) Upper Body Dressing (QC): 5 (per clinical judgment) Lower Body Dressing (QC): 2 (Max A ) On/Off Footwear: 2 (Max A with doffing shoes, dependent to don tedhose/randee wrap and shoes.) Toileting Hygiene (QC): 2 (Max A) Toilet Transfer (QC): 3 (Min A) Other Treatment Pt seated in recliner, completed sit to stand transfer from recliner, min A. Pt used FWW to transfer into bathroom and onto HI. OT covered pt's dressing and IV, pt doffed clothes. Pt completed shower, seated entire time. Assistance to wash buttocks for thoroughness. Pt donned LE clothing, sit to stand from HI, CGA using GBs, then pt transferred to [facility] to don clean gown and footwear. Tedhose donned to RLE, randee wrap to LLE. Pt requests to use toilet, transferred from [facility] to [facility] over toilet using GBS, min A. Pt completed toileting, then transferred back to [facility]. Pt sat at sink for oral care/grooming tasks. Pt taken back to her recliner, transfer from [facility] to recliner, min A. Post tx, pt up in recliner, call light in reach and all needs met. Ice applied to L hip. Education OT Patient Education: Correct positioning, Energy conservation, Modified ADL techniques, Progress toward Goal/Update tx plan, Purpose of tx/functional activities, Rehab process Teaching Recipient: Patient Teaching Methods: Discussion Response to Teaching: Verbalize Understanding OT Short Term Goals Short Term Goals Time Frame: May 31, 2021 Eatin Oral hygiene: 5 Toileting hygiene: 4 Shower/bathe self: 3 Upper body dressin Lower body dressin Putting on/taking off footwear: 3 OT Assisted Goals Assisted Goals Time Frame: Jun 10, 2021 Eating (QC): 6 Oral Hygiene (QC): 6 Toileting Hygiene (QC): 6 Shower/Bathe Self (QC): 5 Upper Body Dressing (QC): 5 Lower Body Dressing (QC): 5 On/Off Footwear (QC): 5 1=Demonstrate adherence to instructed precautions during ADL tasks. 2=Patient will verbalize/demonstrate understanding of assistive devices/modifications for ADL. 3=Patient will improve strength/tolerance for activity to enable patient to perform ADL's. OT Education/Plan Problem List/Assessment Assessment: Decreased Activ Tolerance, Decreased UE Strength, Impaired Funct Balance, Impaired I ADL's, Impaired Self-Care Skills Discharge Recommendations Plan/Recommendations: Continue POC Treatment Plan/Plan of Care Patient would benefit from OT for education, treatment and training to promote independence in ADL's, mobility, safety and/or upper extremity function for ADL's. Plan of Care: ADL Retraining, Functional Mobility, Group Exercise/Act as Ind, UE Funct Exercise/Act Treatment Duration: Jun 10, 2021 Frequency: At least 5 of 7 days/Wk (IRF) Estimated Hrs Per Day: 1.5 hours per day (60-90 min/day) Rehab Potential: Good Time/GCodes Start Time: 09:30 Stop Time: 11:00 Total Time Billed (hr/min): 90 Billed Treatment Time 1, ADL 6 SHAWNA DOWELL OT May 21, 2021 11:06
[2021-05-21] MEDS ORDERED: NON-FORMULARY MEDICATION 1 EA EA TOP PRN (11:15)
[2021-05-21] MEDS ORDERED: PATIENT MAY USE OWN MED,SINGLE MED PO SCH ×2 (11:15)
--- NOTE | 2021-05-21 11:55 | Physical Therapy Daily Note ---
PT Daily Note-Current Subjective Pt. agrees to Rx. States she feels much more positive about her function and gait today. Pt. c/o pain in left hip during gait and ex but does not rate. Mental Status Patient Orientation: Normal For Age Transfers SCALE: Activities may be completed with or without assistive devices. 8-Viwmxguccv-dlsadan completes the activity by him/herself with no assistance from a helper. 5-Set-up or Clean-up Assistance-helper sets up or cleans up; patient completes activity. [place] assists only prior to or following the activity. 4-Supervision or Touching Assistance-helper provides verbal cues and/or touching/steadying and/or contact guard assistance as patient completes activity. Assistance may be provided throughout the activity or intermittently. 3-Partial/Moderate Assistance-helper does LESS THAN HALF the effort. [place] lifts, holds or supports trunk or limbs, but provides less than half the effort. 2-Substantial/Maximal Assistance-helper does MORE THAN HALF the effort. [place] lifts or holds trunk or limbs and provides more than half the effort. 4-Dhghbdfmp-bsqquh does ALL the effort. Patient does none of the effort to complete the activity. Or, the assistance of 2 or more helpers is required for the patient to complete the activity. If activity was not attempted, code reason: 7-Patient Refused. 9-Not Applicable-not attempted and the patient did not perform the activity be fore the current illness, exacerbation or injury. 10-Not Attempted due to Environmental Limitations-(lack of equipment, weather restraints, etc.). 88-Not Attempted due to Medical Conditions or Safety Concerns. sit to stands x 6 SBA Weight Bearing Right Lower Extremity: Right Full Weight Bearing Left Lower Extremity: Left Weight Bearing/Tolerated Gait Training Does the Patient Walk?: Yes Gait Assistive Device: FWW 25ftx2 FWW CGA slow, step to gait with small steps, narrow WILMER Exercises Supine Ex: Ankle pumps, Quad Set, Glut sets, Heel Slides (assisted), Hip abd/add (asssited) Supine Reps: 15 Seated Therapy Exercises: Sit to stand Seated Reps: 5 Assessment Current Status: Good Progress slow steady progress noted PT Shelter Goals Medical Secretary Teacher Goals PT Medical Secretary Teacher Goals Time Frame: June 21, 2021 Roll Left & Right (QC): 6 Sit to Lying (QC): 6 Lying-Sitting on Side/Bed(QC): 6 Sit to Stand (QC): 6 Chair/Grz-ai-Biqjo Xfer(QC): 6 Toilet Transfer (QC): 6 Car Transfer (QC): 6 Does the Patient Walk: Yes Walk 10 feet (QC): 6 Walk 50ft with 2 Turns (QC): 6 Walk 150 ft (QC): 6 Walking 10ft on Uneven Surface: 6 1 Step (curb) (QC): 6 4 Steps (QC): 6 12 Steps (QC): 6 Picking up an Object (QC): 6 Wheel 50 feet with 2 turns (QC: 9 Wheel 150 feet: 9 PT Plan Treatment/Plan Treatment Plan: Continue Plan of Care Treatment Plan: Bed Mobility, Concurrent Therapy, Education, Functional Activity Marco Antonio, Functional Strength, Group Therapy, Gait, Safety, Therapeutic Exercise, Transfers Treatment Duration: June 21, 2021 Frequency: At least 5 of 7 days/Wk (IRF) Estimated Hrs Per Day: 1.5 hours per day Patient and/or Family Agrees t: Yes Safety Risks/Education Patient Education: Gait Training, Transfer Techniques, Correct Positioning, Disease Process, Safety Issues Teaching Recipient: Patient Teaching Methods: Demonstration, Discussion Response to Teaching: Verbalize Understanding, Return Demonstration, Reinforcement Needed Time/GCodes Time In: 1120 Time Out: 1150 Total Billed Treatment Time: 30 Total Billed Treatment 1,GT15m,EX15m ARAMIS LARA TELEPATHIST May 21, 2021 11:55
[2021-05-21] MEDS: HYDROmorphone 2 MG/ML VIAL (DILAUDID) IV PRN ×2 (13:14→20:44)
[2021-05-21 13:16] LABS: BILIRUBIN,URINE NEGATIVE (NEGATIVE); CLARITY,URINE CLEAR; COLOR,URINE YELLOW; GLUCOSE, URINE (UA) NEGATIVE (NEGATIVE); KETONES,URINE NEGATIVE (NEGATIVE); LEUKOCYTE ESTERASE ,URINE 1+ (NEGATIVE); NITRITE,URINE NEGATIVE (NEGATIVE); PH,URINE 5.5 (5-9); PROTEIN,URINE NEGATIVE (NEGATIVE)
[2021-05-21 13:29] LABS: BACTERIA,URINE LARGE /HPF
[2021-05-21] MEDS ORDERED: [UNRECOGNIZED DRUG - OTHER] TP PRN (15:30)
[2021-05-21 20:02] VITALS: BP 115/71
--- NOTE | 2021-05-22 06:02 | PM&R Progress Note ---
Subjective HPI/CC On Admission Date Seen by Provider: May 22, 2021 Time Seen by Provider: 10:30 Subjective/Events-last exam 05/22/2021: Pain is improving but requiring a lot of pain medication Urine culture pending No other major concerns Blood sugars improved and will hold insulin for lower sugars 05/21/2021: Pt is doing a lot better JENNA hose and LUCY wraps will be given for lower extremity edema Will discontinue Statin due to myositis Will bring in her Repatha injection home dosing to take that UA will be ordered for an in and out specimen since her urine seems to be thick and malodorous Overall tolerating therapy Review of Systems Musculoskeletal: leg pain Objective Exam Vital Signs Vital Signs Date Time Temp Pulse Resp B/P (MAP) Pulse Ox O2 Delivery O2 Flow Rate FiO2 05/22/21 21:35 92 Room Air 05/22/21 20:30 36.6 74 20 175/74 (107) Capillary Refill : General Appearance: No Apparent Distress, WD/WN, Chronically ill, Obese HEENT: PERRL/EOMI, Normal ENT Inspection, Pharynx Normal Neck: Full Range of Motion, Normal Inspection, Non Tender, Supple, Carotid Bruit Respiratory: Chest Non Tender, Lungs Clear, Normal Breath Sounds, No Accessory Muscle Use, No Respiratory Distress Cardiovascular: Regular Rate, Rhythm, No Edema, No Gallop, No JVD, No Murmur, Normal Peripheral Pulses Gastrointestinal: Normal Bowel Sounds, No Organomegaly, No Pulsatile Mass, Non Tender, Soft Back: Normal Inspection, No CVA Tenderness, No Vertebral Tenderness Extremity: Normal Capillary Refill, Normal Inspection, Normal Range of Motion (Except left leg), Non Tender, No Calf Tenderness, No Pedal Edema Neurologic/Psychiatric: Alert, Oriented x3, Normal Mood/Affect, bosom presser II-XII Norm as Tested, Abnormal Gait, Depressed Affect, Motor Weakness (Left-sided weakness, generalized weakness) Skin: Normal Color, Warm/Dry Lymphatic: No Adenopathy Results/Procedures Lab Patient resulted labs reviewed. FIM Transfers Therapy Code Descriptions/Definitions Functional [place] Measure: 0=Not Assessed/NA 4=Minimal Assistance 1=Total Assistance 5=Supervision or Setup 2=Maximal Assistance 6=Modified [place] 3=Moderate Assistance 7=Complete IndependenceSCALE: Activities may be completed with or without assistive devices. 3-Dfahhtacnv-stvvdhs completes the activity by him/herself with no assistance from a helper. 5-Set-up or Clean-up Assistance-helper sets up or cleans up; patient completes activity. [place] assists only prior to or following the activity. 4-Supervision or Touching Assistance-helper provides verbal cues and/or touching/steadying and/or contact guard assistance as patient completes ac tivity. Assistance may be provided throughout the activity or intermittently. 3-Partial/Moderate Assistance-helper does LESS THAN HALF the effort. [place] lifts, holds or supports trunk or limbs, but provides less than half the effort. 2-Substantial/Maximal Assistance-helper does MORE THAN HALF the effort. [place] lifts or holds trunk or limbs and provides more than half the effort. 8-Zytrxbzgq-xdikrm does ALL the effort. Patient does none of the effort to complete the activity. Or, the assistance of 2 or more helpers is required for the patient to complete the activity. If activity was not attempted, code reason: 7-Patient Refused. 9-Not Applicable-not attempted and the patient did not perform the activity before the current illness, exacerbation or injury. 10-Not Attempted due to Environmental Limitations-(lack of equipment, weather restraints, etc.). 88-Not Attempted due to Medical Conditions or Safety Concerns. Roll Left to Right (QC): 3 Sit to Lying (QC): 3 Sit to Stand (QC): 4 Chair/Mhk-mk-Wcgdt Xfer(QC): 4 Car Transfer (QC): 3 Gait Training Does the Patient Walk?: Yes Walk 10 feet (QC): 4 Walk 50 ft with 2 Turns(QC): 4 Walk 150 ft (QC): 88 Walking 10ft/uneven surface-QC: 3 Gait Persons Needed: 1 Gait Assistive Device: FWW Wheelchair Training Does the Pt Use a Wheelchair?: No Wheel 50 ft with 2 turns (QC): 9 Wheel 150 ft (QC): 9 Stair Training #of Steps: 1 1 Step (curb) (QC): 3 4 Steps (QC): 88 12 Steps (QC): 88 Balance Picking up an Object (QC): 88 ADL-Treatment Eating (QC): 6 Oral Hygiene (QC): 6 (seated at sink) Shower/Bathe Self (QC): 3 (assist to wash/dry buttocks. Pt able to use LH sponge for LEs.) Upper Body Dressing (QC): 5 (per clinical judgment) Lower Body Dressing (QC): 2 (Max A ) On/Off Footwear (QC): 2 (Max A with doffing shoes, dependent to don tedhose/lucy wrap and shoes.) Toileting Hygiene (QC): 2 (Max A) Toilet Transfer (QC): 3 (Min A) Assessment/Plan Assessment and Plan Assess & Plan/Chief Complaint Assessment: Left hip fracture status post repair postop day #6 DM on insulin Previous stroke with left-sided weakness Loop recorder in place Former smoker cessation 2 years ago Hyperlipidemia Hypertension CAD previous stent Postop acute blood loss anemia Great toe amputation Easily tearful since stroke Abnormal UA await urine culture since just completed antibiotic Plan: Aggressive rehab Supportive care Monitor blood sugar Pain control 05/21/2021: Supportive care Hold rapid acting insulin for sugar less than 130 Await urine culture 05/22/2021: Await urine culture Supportive care (1) Fracture, intertrochanteric, left femur Status: Acute (2) History of stroke Status: Chronic (3) HTN (hypertension) Status: Chronic (4) CAD (coronary artery disease) Status: Chronic (5) Diabetes Status: Chronic (6) Mixed hyperlipidemia (7) Presence of stent in coronary artery MIYA CASTILLO DO May 22, 2021 06:02
[2021-05-22] MEDS: inSUlin ASPART (NovoLOG) 1 UNIT/0.01 ML (CHARGE PER UNIT) SC SCH ×4 (06:12→21:58)
[2021-05-22] MEDS: ASCORBIC ACID (VIT C) 500 MG TABLET PO SCH (06:13)
[2021-05-22] MEDS: MULTIVIT W/MINERALS TAB (THERAGRAN M) PO SCH (06:13)
[2021-05-22] MEDS: inSUlin ASPART (NovoLOG) 1 UNIT/0.01 ML (CHARGE PER UNIT) SQ SCH ×3 (06:13→16:50)
[2021-05-22 07:45] VITALS: BP 119/57
[2021-05-22] MEDS: ASPIRIN E.C. 81 MG (ECOTRIN) TAB PO SCH ×2 (08:00→18:01)
[2021-05-22] MEDS: PANTOPRAZOLE 40 MG (PROTONIX) TAB PO SCH (08:00)
[2021-05-22] MEDS: DOCUSATE SODIUM 100 MG (COLACE) CAP PO SCH ×2 (08:00→21:58)
[2021-05-22] MEDS: LACTOBACILLUS ACIDOPHILUS (PROBIOTIC) CAPSULE PO SCH ×3 (08:00→18:01)
[2021-05-22] MEDS: PREGABALIN 100 MG (LYRICA) CAPSULE PO SCH ×2 (08:00→21:58)
[2021-05-22] MEDS: SENNA W/DOCUSATE (SENOKOT S) TABLET PO SCH ×2 (08:00→21:58)
[2021-05-22] MEDS: VITAMIN D3 125 MCG (5,000 UNITS) CAPSULE PO SCH (08:00)
[2021-05-22] MEDS: polyethylene glycoL POWDER 17 GM (MIRALAX) PACK PO SCH ×2 (08:02→21:58)
--- NOTE | 2021-05-22 08:50 | Occupational Ther Daily Note ---
OT Current Status-Daily Note Subjective Pt up in recliner, 1/10 pain in L hip at rest, 5/10 when walking and transferring. Mental Status/Objective Patient Orientation: Person, Place, Time, Situation ADL-Treatment Therapy Code Descriptions/Definitions Functional [place] Measure: 0=Not Assessed/NA 4=Minimal Assistance 1=Total Assistance 5=Supervision or Setup 2=Maximal Assistance 6=Modified [place] 3=Moderate Assistance 7=Complete IndependenceSCALE: Activities may be completed with or without assistive devices. 4-Ivxfldnied-wdnifix completes the activity by him/herself with no assistance from a helper. 5-Set-up or Clean-up Assistance-helper sets up or cleans up; patient completes activity. [place] assists only prior to or following the activity. 4-Supervision or Touching Assistance-helper provides verbal cues and/or touc eli/steadying and/or contact guard assistance as patient completes activity. Assistance may be provided throughout the activity or intermittently. 3-Partial/Moderate Assistance-helper does LESS THAN HALF the effort. [place] lifts, holds or supports trunk or limbs, but provides less than half the effort. 2-Substantial/Maximal Assistance-helper does MORE THAN HALF the effort. [place] lifts or holds trunk or limbs and provides more than half the effort. 5-Akodajzgu-romhhg does ALL the effort. Patient does none of the effort to complete the activity. Or, the assistance of 2 or more helpers is required for the patient to complete the activity. If activity was not attempted, code reason: 7-Patient Refused. 9-Not Applicable-not attempted and the patient did not perform the activity before the current illness, exacerbation or injury. 10-Not Attempted due to Environmental Limitations-(lack of equipment, weather restraints, etc.). 88-Not Attempted due to Medical Conditions or Safety Concerns. Eating (QC): 6 (IND) Oral Hygiene (QC): 6 (IND ) Upper Body Dressing (QC): 5 (set up) Lower Body Dressing (QC): 4 (CGA in stand for pant hike) On/Off Footwear: 2 (Pt able to doff gripper socks, asssist with Tedhose/Kevin Wrap, assist wtih slip on shoes.) Toileting Hygiene (QC): 3 (Assist with hygiene) Toilet Transfer (QC): 4 (CGA on/off BSC over toilet.) Other Treatment Pt up in recliner, agreeable to OT Tx. Pt used FWW to transfer into bathroom and onto BSC over toilet, CGA. Pt completed toileting, requiring assistance for hygiene.Pt then stood at sink for oral care and grooming tasks. Pt used FWW to return to recliner, completed dressing tasks. OT switched out pt's laces for elastic laces in order to change shoes to slip on shoes with pt's permission. OT tx with focus on increasing BUE strength and activity tolerance. Pt propelled w/c to therapy gym. Pt completed arm bike x15 mins, 15 Watt resistance. She then removed beads from moderate resistance theraputty, able to locate all beads without cues. Pt propelled w/c back to room, transferring to BSC over toilet. Pt attempted to have BM, but had difficulty. Pt's nurse aware. Pt used FWW to return to recliner, CGA. Post tx, pt in recliner, call light in reach and all needs met. Education OT Patient Education: Correct positioning, Energy conservation, Exercise program, Modified ADL techniques, Progress toward Goal/Update tx plan, Purpose of tx/functional activities, Rehab process Teaching Recipient: Patient Teaching Methods: Discussion Response to Teaching: Verbalize Understanding OT Short Term Goals Short Term Goals Time Frame: May 31, 2021 Eatin Oral hygiene: 5 Toileting hygiene: 4 Shower/bathe self: 3 Upper body dressin Lower body dressin Putting on/taking off footwear: 3 OT Fpc Goals Fpc Goals Time Frame: Jun 10, 2021 Eating (QC): 6 Oral Hygiene (QC): 6 Toileting Hygiene (QC): 6 Shower/Bathe Self (QC): 5 Upper Body Dressing (QC): 5 Lower Body Dressing (QC): 5 On/Off Footwear (QC): 5 1=Demonstrate adherence to instructed precautions during ADL tasks. 2=Patient will verbalize/demonstrate understanding of assistive devices/modifications for ADL. 3=Patient will improve strength/tolerance for activity to enable patient to perform ADL's. OT Education/Plan Problem List/Assessment Assessment: Decreased Activ Tolerance, Decreased UE Strength, Impaired Funct Balance, Impaired I ADL's, Impaired Self-Care Skills Discharge Recommendations Plan/Recommendations: Continue POC Treatment Plan/Plan of Care Patient would benefit from OT for education, treatment and training to promote independence in ADL's, mobility, safety and/or upper extremity function for ADL's. Plan of Care: ADL Retraining, Functional Mobility, Group Exercise/Act as Ind, UE Funct Exercise/Act Treatment Duration: Jun 10, 2021 Frequency: At least 5 of 7 days/Wk (IRF) Estimated Hrs Per Day: 1.5 hours per day (60-90 min/day) Rehab Potential: Good Time/GCodes Start Time: 08:00 Stop Time: 09:30 Total Time Billed (hr/min): 90 Billed Treatment Time 1, ADL 4 (60'), EX (15'), FA (15') SHAWNA DOWELL OT May 22, 2021 08:50
[2021-05-22] MEDS: ENOXAPARIN 40 MG/0.4 ML (LOVENOX) SYR SC SCH (09:24)
[2021-05-22] MEDS: BACLOFEN 10 MG (LIORESAL) TAB PO PRN (11:07)
--- NOTE | 2021-05-22 13:38 | Physical Therapy Daily Note ---
PT Daily Note-Current Subjective Upon arrival, pt was in BR. RN arrived to check on pt, pt states that she id done in BR. Pt agrees to therapy. Pain Numeric Pain Scale: 7 Location: Left Location Body Site: Hip Mental Status Patient Orientation: Normal For Age Transfers SCALE: Activities may be completed with or without assistive devices. 1-Unwohhrrno-pyllbzh completes the activity by him/herself with no assistance from a helper. 5-Set-up or Clean-up Assistance-helper sets up or cleans up; patient completes activity. [place] assists only prior to or following the activity. 4-Supervision or Touching Assistance-helper provides verbal cues and/or touching/steadying and/or contact guard assistance as patient completes activity. Assistance may be provided throughout the activity or intermittently. 3-Partial/Moderate Assistance-helper does LESS THAN HALF the effort. [place] lifts, holds or supports trunk or limbs, but provides less than half the effort. 2-Substantial/Maximal Assistance-helper does MORE THAN HALF the effort. [place] lifts or holds trunk or limbs and provides more than half the effort. 5-Qrslqwntu-akptmz does ALL the effort. Patient does none of the effort to complete the activity. Or, the assistance of 2 or more helpers is required for the patient to complete the activity. If activity was not attempted, code reason: 7-Patient Refused. 9-Not Applicable-not attempted and the patient did not perform the activity before the current illness, exacerbation or injury. 10-Not Attempted due to Environmental Limitations-(lack of equipment, weather restraints, etc.). 88-Not Attempted due to Medical Conditions or Safety Concerns. Sit to Stand (QC): 4 Toilet Transfer (QC): 4 Weight Bearing Right Lower Extremity: Right Full Weight Bearing Left Lower Extremity: Left Weight Bearing/Tolerated Gait Training Does the Patient Walk?: Yes Distance: 52' Walk 10 feet (QC): 4 Walk 50 ft with 2 Turns(QC): 4 Gait Persons Needed: 1 Gait Assistive Device: FWW Pt uses a step through GT, while ambulating. Pt needed rest break during ambulation. Exercises Seated Therapy Exercises: Ankle pumps (20), Long arc quads (10), Hip abd/add (10) Standing: Heel/toe raises Treatments Pt performed and completed all EXs listed above. Pt stated that she was having pain and discomfort around hip area. Pt states she has improved on her "walking". As pt heads to room, RN arrives with meds for pt, as the pt makes her way back to the room. Pt had call light in reach, all needs were met. As therapist exits, a guest of the pt arrives. Assessment Current Status: Good Progress Pt would greatly benefit from more PT, to work and improve on GT, activity tolerance, and strength. PT Fdc Goals Supervisor [employer] Goals PT Fdc Goals Time Frame: June 21, 2021 Roll Left & Right (QC): 6 Sit to Lying (QC): 6 Lying-Sitting on Side/Bed(QC): 6 Sit to Stand (QC): 6 Chair/Eqv-sx-Nnzll Xfer(QC): 6 Toilet Transfer (QC): 6 Car Transfer (QC): 6 Does the Patient Walk: Yes Walk 10 feet (QC): 6 Walk 50ft with 2 Turns (QC): 6 Walk 150 ft (QC): 6 Walking 10ft on Uneven Surface: 6 1 Step (curb) (QC): 6 4 Steps (QC): 6 12 Steps (QC): 6 Picking up an Object (QC): 6 Wheel 50 feet with 2 turns (QC: 9 Wheel 150 feet: 9 PT Plan Problem List Problem List: Activity Tolerance, Functional Strength, Gait Treatment/Plan Treatment Plan: Continue Plan of Care Treatment Plan: Bed Mobility, Concurrent Therapy, Education, Functional Activity Marco Antonio, Functional Strength, Group Therapy, Gait, Safety, Therapeutic Exercise, Transfers Treatment Duration: June 21, 2021 Frequency: At least 5 of 7 days/Wk (IRF) Estimated Hrs Per Day: 1.5 hours per day Patient and/or Family Agrees t: Yes Safety Risks/Education Patient Education: Gait Training, Correct Positioning, Safety Issues Teaching Recipient: Patient Teaching Methods: Discussion Response to Teaching: Verbalize Understanding Time/GCodes Time In: 1300 Time Out: 1330 Total Billed Treatment Time: 30 Total Billed Treatment 1, FA (15), EX (15) HENRY DEUTSCH [employer] OPERATIONS VICE PRESIDENT May 22, 2021 13:38
[2021-05-22] MEDS ORDERED: PATIENT MAY USE OWN MED,SINGLE MED PO SCH (13:45)
--- NOTE | 2021-05-22 14:38 | Physical Therapy Daily Note ---
PT Daily Note-Current Subjective Pt. c/o pain in left hip still at 7-8/10. Pt agrees to Rx and states she feels she has a high tolerance for pain but this is perplexing to her, agrees to Rx Pain Numeric Pain Scale: 8 Location: Left Location Body Site: Hip Pain Description: Pressure Mental Status Patient Orientation: Normal For Age Transfers SCALE: Activities may be completed with or without assistive devices. 5-Oatescnbsx-rigfktx completes the activity by him/herself with no assistance from a helper. 5-Set-up or Clean-up Assistance-helper sets up or cleans up; patient completes activity. [place] assists only prior to or following the activity. 4-Supervision or Touching Assistance-helper provides verbal cues and/or touching/steadying and/or contact guard assistance as patient completes activity. Assistance may be provided throughout the activity or intermittently. 3-Partial/Moderate Assistance-helper does LESS THAN HALF the effort. [place] lifts, holds or supports trunk or limbs, but provides less than half the effort. 2-Substantial/Maximal Assistance-helper does MORE THAN HALF the effort. [place] lifts or holds trunk or limbs and provides more than half the effort. 5-Voevvksug-dkzmxe does ALL the effort. Patient does none of the effort to complete the activity. Or, the assistance of 2 or more helpers is required for the patient to complete the activity. If activity was not attempted, code reason: 7-Patient Refused. 9-Not Applicable-not attempted and the patient did not perform the activity before the current illness, exacerbation or injury. 10-Not Attempted due to Environmental Limitations-(lack of equipment, weather restraints, etc.). 88-Not Attempted due to Medical Conditions or Safety Concerns. Roll Left & Right (QC): 4 Sit to Lying (QC): 4 Lying to Sitting/Side of Bed(Q: 4 Sit to Stand (QC): 6 Chair/Ggd-bj-Efgpl Xfer(QC): 6 Weight Bearing Right Lower Extremity: Right Full Weight Bearing Left Lower Extremity: Left Weight Bearing/Tolerated Gait Training Does the Patient Walk?: Yes Walk 10 feet (QC): 4 Walk 50 ft with 2 Turns(QC): 4 Gait Persons Needed: 1 Gait Assistive Device: FWW 50ft x 3, 25ft x 2, 70 ft x 1, requests rest breaks and indicates pain Wheelchair Training Does the Pt Use a Wheelchair?: Yes Wheel 50 ft with 2 turns (QC): 4 Type of Wheelchair: Manual needs education and instruction Exercises Supine Ex: Ankle pumps, Quad Set, Heel Slides (asssited), Short Arc Quads, Scooting, Straight leg raise (assisted), Hip abd/add (assisted) Supine Reps: 15 Seated Therapy Exercises: Ankle pumps, Sit to stand, Long arc quads Seated Reps: 10 Assessment Current Status: Good Progress pain limits participation, PT Prison Goals Distribution A Class Lineman Goals PT Distribution A Class Lineman Goals Time Frame: June 21, 2021 Roll Left & Right (QC): 6 Sit to Lying (QC): 6 Lying-Sitting on Side/Bed(QC): 6 Sit to Stand (QC): 6 Chair/Dat-ml-Utjcs Xfer(QC): 6 Toilet Transfer (QC): 6 Car Transfer (QC): 6 Does the Patient Walk: Yes Walk 10 feet (QC): 6 Walk 50ft with 2 Turns (QC): 6 Walk 150 ft (QC): 6 Walking 10ft on Uneven Surface: 6 1 Step (curb) (QC): 6 4 Steps (QC): 6 12 Steps (QC): 6 Picking up an Object (QC): 6 Wheel 50 feet with 2 turns (QC: 9 Wheel 150 feet: 9 PT Plan Treatment/Plan Treatment Plan: Continue Plan of Care Treatment Plan: Bed Mobility, Concurrent Therapy, Education, Functional Activity Marco Antonio, Functional Strength, Group Therapy, Gait, Safety, Therapeutic Exercise, Transfers Treatment Duration: June 21, 2021 Frequency: At least 5 of 7 days/Wk (IRF) Estimated Hrs Per Day: 1.5 hours per day Patient and/or Family Agrees t: Yes Safety Risks/Education Patient Education: Gait Training, Transfer Techniques, Correct Positioning, W/C Management, Disease Process, Safety Issues Teaching Recipient: Patient Teaching Methods: Demonstration, Discussion Response to Teaching: Verbalize Understanding, Return Demonstration, Reinforcement Needed Time/GCodes Time In: 1000 Time Out: 1100 Total Billed Treatment Time: 60 Total Billed Treatment 1,GT25m,FA20m,EX15m ARAMIS LARA PURSE SEINER May 22, 2021 14:38
[2021-05-22 20:30] VITALS: BP 175/74
[2021-05-23] MEDS: BACLOFEN 10 MG (LIORESAL) TAB PO PRN ×2 (00:19→13:29)
--- NOTE | 2021-05-23 06:03 | PM&R Progress Note ---
Subjective HPI/CC On Admission Date Seen by Provider: May 23, 2021 Time Seen by Provider: 10:00 Subjective/Events-last exam 05/23/2021: Patient reports doing better Using less pain meds UTI will be treated with fosfomycin 1 dose Blood sugars improved Bowels are moving 05/22/2021: Pain is improving but requiring a lot of pain medication Urine culture pending No other major concerns Blood sugars improved and will hold insulin for lower sugars 05/21/2021: Pt is doing a lot better JENNA hose and KEVIN wraps will be given for lower extremity edema Will discontinue Statin due to myositis Will bring in her Repatha injection home dosing to take that UA will be ordered for an in and out specimen since her urine seems to be thick and malodorous Overall tolerating therapy Review of Systems General: Fatigue, Malaise Musculoskeletal: leg pain Objective Exam Vital Signs Vital Signs Date Time Temp Pulse Resp B/P (MAP) Pulse Ox O2 Delivery O2 Flow Rate FiO2 05/23/21 21:00 Room Air 05/23/21 19:52 37.0 65 20 110/58 (75) 93 Capillary Refill : General Appearance: No Apparent Distress, WD/WN, Chronically ill, Obese HEENT: PERRL/EOMI, Normal ENT Inspection, Pharynx Normal Neck: Full Range of Motion, Normal Inspection, Non Tender, Supple, Carotid Bruit Respiratory: Chest Non Tender, Lungs Clear, Normal Breath Sounds, No Accessory Muscle Use, No Respiratory Distress Cardiovascular: Regular Rate, Rhythm, No Edema, No Gallop, No JVD, No Murmur, Normal Peripheral Pulses Gastrointestinal: Normal Bowel Sounds, No Organomegaly, No Pulsatile Mass, Non Tender, Soft Back: Normal Inspection, No CVA Tenderness, No Vertebral Tenderness Extremity: Normal Capillary Refill, Normal Inspection, Normal Range of Motion (Except left leg), Non Tender, No Calf Tenderness, No Pedal Edema Neurologic/Psychiatric: Alert, Oriented x3, Normal Mood/Affect, laundry superintendent II-XII Norm as Tested, Abnormal Gait, Depressed Affect, Motor Weakness (Left-sided weakness, generalized weakness) Skin: Normal Color, Warm/Dry Lymphatic: No Adenopathy Results/Procedures Lab Patient resulted labs reviewed. FIM Transfers Therapy Code Descriptions/Definitions Functional [place] Measure: 0=Not Assessed/NA 4=Minimal Assistance 1=Total Assistance 5=Supervision or Setup 2=Maximal Assistance 6=Modified [place] 3=Moderate Assistance 7=Complete IndependenceSCALE: Activities may be completed with or without assistive devices. 9-Ybwbkmjydl-xnjfbwr completes the activity by him/herself with no assistance from a helper. 5-Set-up or Clean-up Assistance-helper sets up or cleans up; patient completes activity. [place] assists only prior to or following the activity. 4-Supervision or Touching Assistance-helper provides verbal cues and/or touching/steadying and/or contact guard assistance as patient completes activity. Assistance may be provided throughout the activity or intermittently. 3-Partial/Moderate Assistance-helper does LESS THAN HALF the effort. [place] lifts, holds or supports trunk or limbs, but provides less than half the effort. 2-Substantial/Maximal Assistance-helper does MORE THAN HALF the effort. [place] lifts or holds trunk or limbs and provides more than half the effort. 9-Juvxinhit-ofwief does ALL the effort. Patient does none of the effort to complete the activity. Or, the assistance of 2 or more helpers is required for the patient to complete the activity. If activity was not attempted, code reason: 7-Patient Refused. 9-Not Applicable-not attempted and the patient did not perform the activity before the current illness, exacerbation or injury. 10-Not Attempted due to Environmental Limitations-(lack of equipment, weather restraints, etc.). 88-Not Attempted due to Medical Conditions or Safety Concerns. Roll Left to Right (QC): 4 Sit to Lying (QC): 4 Sit to Stand (QC): 6 Chair/Lwr-ih-Vrdid Xfer(QC): 6 Car Transfer (QC): 3 Gait Training Does the Patient Walk?: Yes Distance: 52' Walk 10 feet (QC): 4 Walk 50 ft with 2 Turns(QC): 4 Walk 150 ft (QC): 88 Walking 10ft/uneven surface-QC: 3 Gait Persons Needed: 1 Gait Assistive Device: FWW Wheelchair Training Does the Pt Use a Wheelchair?: Yes Wheel 50 ft with 2 turns (QC): 4 Wheel 150 ft (QC): 9 Type of Wheelchair: Manual Stair Training #of Steps: 1 1 Step (curb) (QC): 3 4 Steps (QC): 88 12 Steps (QC): 88 Balance Picking up an Object (QC): 88 ADL-Treatment Eating (QC): 6 (IND) Oral Hygiene (QC): 6 (IND ) Shower/Bathe Self (QC): 3 (assist to wash/dry buttocks. Pt able to use LH sponge for LEs.) Upper Body Dressing (QC): 5 (set up) Lower Body Dressing (QC): 4 (CGA in stand for pant hike) On/Off Footwear (QC): 2 (Pt able to doff gripper socks, asssist with Tedhose/Kevin Wrap, assist wtih slip on shoes.) Toileting Hygiene (QC): 3 (Assist with hygiene) Toilet Transfer (QC): 4 (CGA on/off BSC over toilet.) Assessment/Plan Assessment and Plan Assess & Plan/Chief Complaint Assessment: Left hip fracture status post repair postop day #7 DM on insulin Previous stroke with left-sided weakness Loop recorder in place Former smoker cessation 2 years ago Hyperlipidemia Hypertension CAD previous stent Postop acute blood loss anemia Great toe amputation Easily tearful since stroke UTI with resistance status post fosfomycin 05/23/2021 1 dose Plan: Aggressive rehab Supportive care Monitor blood sugar Pain control 05/21/2021: Supportive care Hold rapid acting insulin for sugar less than 130 Await urine culture 05/22/2021: Await urine culture Supportive care 05/23/2021: Fosfomycin for UTI Supportive care (1) Fracture, intertrochanteric, left femur Status: Acute (2) History of stroke Status: Chronic (3) HTN (hypertension) Status: Chronic (4) CAD (coronary artery disease) Status: Chronic (5) Diabetes Status: Chronic (6) Mixed hyperlipidemia (7) Presence of stent in coronary artery MIYA CASTILLO DO May 23, 2021 06:03
[2021-05-23 07:48] VITALS: BP 111/53
[2021-05-23] MEDS: ASPIRIN E.C. 81 MG (ECOTRIN) TAB PO SCH ×2 (08:21→17:26)
[2021-05-23] MEDS: ACETAMINOPHEN 325 MG TABLET PO PRN ×2 (08:21→13:30)
[2021-05-23] MEDS: LACTOBACILLUS ACIDOPHILUS (PROBIOTIC) CAPSULE PO SCH ×3 (08:21→17:26)
[2021-05-23] MEDS: polyethylene glycoL POWDER 17 GM (MIRALAX) PACK PO SCH ×2 (08:23→21:22)
[2021-05-23] MEDS: PREGABALIN 100 MG (LYRICA) CAPSULE PO SCH ×2 (08:37→21:09)
[2021-05-23] MEDS: DOCUSATE SODIUM 100 MG (COLACE) CAP PO SCH ×2 (08:37→21:20)
[2021-05-23] MEDS: PANTOPRAZOLE 40 MG (PROTONIX) TAB PO SCH (08:37)
[2021-05-23] MEDS: VITAMIN D3 125 MCG (5,000 UNITS) CAPSULE PO SCH (08:37)
[2021-05-23] MEDS: SENNA W/DOCUSATE (SENOKOT S) TABLET PO SCH ×2 (08:38→21:22)
[2021-05-23] MEDS: MULTIVIT W/MINERALS TAB (THERAGRAN M) PO SCH (08:51)
[2021-05-23] MEDS: ASCORBIC ACID (VIT C) 500 MG TABLET PO SCH (08:51)
--- NOTE | 2021-05-23 09:01 | Occupational Ther Daily Note ---
OT Current Status-Daily Note Subjective Pt up in recliner, agreeable to OT Tx. Pt rates pain 4/10 in L hip. Mental Status/Objective Patient Orientation: Person, Place, Time, Situation ADL-Treatment Therapy Code Descriptions/Definitions Functional [place] Measure: 0=Not Assessed/NA 4=Minimal Assistance 1=Total Assistance 5=Supervision or Setup 2=Maximal Assistance 6=Modified [place] 3=Moderate Assistance 7=Complete IndependenceSCALE: Activities may be completed with or without assistive devices. 1-Hatpcqkdkk-dpovfjo completes the activity by him/herself with no assistance f rom a helper. 5-Set-up or Clean-up Assistance-helper sets up or cleans up; patient completes activity. [place] assists only prior to or following the activity. 4-Supervision or Touching Assistance-helper provides verbal cues and/or touching/steadying and/or contact guard assistance as patient completes activity. Assistance may be provided throughout the activity or intermittently. 3-Partial/Moderate Assistance-helper does LESS THAN HALF the effort. [place] lifts, holds or supports trunk or limbs, but provides less than half the effort. 2-Substantial/Maximal Assistance-helper does MORE THAN HALF the effort. [place] lifts or holds trunk or limbs and provides more than half the effort. 9-Bwpvrjlnv-iwalub does ALL the effort. Patient does none of the effort to complete the activity. Or, the assistance of 2 or more helpers is required for the patient to complete the activity. If activity was not attempted, code reason: 7-Patient Refused. 9-Not Applicable-not attempted and the patient did not perform the activity before the current illness, exacerbation or injury. 10-Not Attempted due to Environmental Limitations-(lack of equipment, weather restraints, etc.). 88-Not Attempted due to Medical Conditions or Safety Concerns. Upper Body Dressing (QC): 5 Lower Body Dressing (QC): 3 (Min A threading pants on LLE) Toileting Hygiene (QC): 3 (Min A with hygiene) Toilet Transfer (QC): 4 (CGA on/off BSC over toilet.) Other Treatment Pt seated in recliner, used FWW to go into bathroom and onto BSC over toilet, CGA. Pt completed toileting, assist with hygiene, then transferred to [place]. Pt doffed clothes, completed shower, then dries off. Pt transferred to [facility] just outside shower, states urgency to use BS for BM. Pt transferred from [facility] to [facility] ove toilet using GBs, CGA. Pt able to don shirt, then after toileting, used GBs to transfer back to [facility] to complete LE dressing tasks. OT assisted with footwear due to time constraint, thus no QC score given. Pt transferred from [facility] to [facility], CGA using FWW. Post tx, pt up in recliner, call light in reach and all needs met. Education OT Patient Education: Correct positioning, Energy conservation, Exercise program, Modified ADL techniques, Progress toward Goal/Update tx plan, Purpose of tx/functional activities, Rehab process Teaching Recipient: Patient Teaching Methods: Discussion Response to Teaching: Verbalize Understanding OT Short Term Goals Short Term Goals Time Frame: May 31, 2021 Eatin Oral hygiene: 5 Toileting hygiene: 4 Shower/bathe self: 3 Upper body dressin Lower body dressin Putting on/taking off footwear: 3 OT Herd Tester Goals Herd Tester Goals Time Frame: Jun 10, 2021 Eating (QC): 6 Oral Hygiene (QC): 6 Toileting Hygiene (QC): 6 Shower/Bathe Self (QC): 5 Upper Body Dressing (QC): 5 Lower Body Dressing (QC): 5 On/Off Footwear (QC): 5 1=Demonstrate adherence to instructed precautions during ADL tasks. 2=Patient will verbalize/demonstrate understanding of assistive devices/modifications for ADL. 3=Patient will improve strength/tolerance for activity to enable patient to perform ADL's. OT Education/Plan Problem List/Assessment Assessment: Decreased Activ Tolerance, Decreased UE Strength, Impaired Funct Balance, Impaired I ADL's, Impaired Self-Care Skills Discharge Recommendations Plan/Recommendations: Continue POC Treatment Plan/Plan of Care Patient would benefit from OT for education, treatment and training to promote independence in ADL's, mobility, safety and/or upper extremity function for ADL's. Plan of Care: ADL Retraining, Functional Mobility, Group Exercise/Act as Ind, UE Funct Exercise/Act Treatment Duration: Jun 10, 2021 Frequency: At least 5 of 7 days/Wk (IRF) Estimated Hrs Per Day: 1.5 hours per day (60-90 min/day) Rehab Potential: Good Time/GCodes Start Time: 08:00 Stop Time: 09:00 Total Time Billed (hr/min): 60 Billed Treatment Time 1, ADL 4 SHAWNA DOWELL OT May 23, 2021 09:01
[2021-05-23] MEDS: ENOXAPARIN 40 MG/0.4 ML (LOVENOX) SYR SC SCH (09:19)
--- NOTE | 2021-05-23 10:01 | Physical Therapy Daily Note ---
PT Daily Note-Current Subjective Pt. agrees to Rx, feels she is making progress but still has pain. Pt. rates pain during Rx at 5/10 Pain Numeric Pain Scale: 5-Moderate Pain Location: Left Location Body Site: Hip Pain Description: Ache Mental Status Patient Orientation: Normal For Age Transfers SCALE: Activities may be completed with or without assistive devices. 9-Qpjpkukaod-dnrurhb completes the activity by him/herself with no assistance from a helper. 5-Set-up or Clean-up Assistance-helper sets up or cleans up; patient completes activity. [place] assists only prior to or following the activity. 4-Supervision or Touching Assistance-helper provides verbal cues and/or touching/steadying and/or contact guard assistance as patient completes activity. Assistance may be provided throughout the activity or intermittently. 3-Partial/Moderate Assistance-helper does LESS THAN HALF the effort. [place] lifts, holds or supports trunk or limbs, but provides less than half the effort. 2-Substantial/Maximal Assistance-helper does MORE THAN HALF the effort. [place] lifts or holds trunk or limbs and provides more than half the effort. 1-Wsfnmfixg-zaassq does ALL the effort. Patient does none of the effort to complete the activity. Or, the assistance of 2 or more helpers is required for the patient to complete the activity. If activity was not attempted, code reason: 7-Patient Refused. 9-Not Applicable-not attempted and the patient did not perform the activity before the current illness, exacerbation or injury. 10-Not Attempted due to Environmental Limitations-(lack of equipment, weather restraints, etc.). 88-Not Attempted due to Medical Conditions or Safety Concerns. Roll Left & Right (QC): 6 Sit to Lying (QC): 6 Lying to Sitting/Side of Bed(Q: 4 Sit to Stand (QC): 6 Chair/Lee-aq-Nyaly Xfer(QC): 6 emphasis on sup to sit and sit to sup with assist needed for sup to sit and much instruction for technique , pt. with pain in left hip during TRF. uses FWW at side for stability. also educated pt on safe approach to chair as she turns as pt. tends to T turn and was instructed in keeping feet shoulder width apart to turn for safety and stability Weight Bearing Right Lower Extremity: Right Full Weight Bearing Left Lower Extremity: Left Weight Bearing/Tolerated Gait Training Does the Patient Walk?: Yes Walk 10 feet (QC): 6 Walk 50 ft with 2 Turns(QC): 6 Gait Persons Needed: 1 Gait Assistive Device: FWW slow 60ft x 2 SBA, 10ft x2 FWW, heavy wt bearing on FWW, improved equal step length steps thru now. fatigues quickly and requests rest Exercises Supine Ex: Quad Set, Rolling, Glut sets, Heel Slides ( assisted 6 x 2), Short Arc Quads, Scooting, Straight leg raise ( assisted x 4), Hip abd/add (assisted) Supine Reps: 12 Seated Therapy Exercises: Ankle pumps, Sit to stand, Long arc quads, Hip flexion Seated Reps: 12 Assessment Current Status: Good Progress slow steady progress, less pain c/o, increased TRFs and gait skills PT Student Development Dean Goals Student Development Dean Goals PT Student Development Dean Goals Time Frame: June 21, 2021 Roll Left & Right (QC): 6 Sit to Lying (QC): 6 Lying-Sitting on Side/Bed(QC): 6 Sit to Stand (QC): 6 Chair/Jkx-ra-Tlrpn Xfer(QC): 6 Toilet Transfer (QC): 6 Car Transfer (QC): 6 Does the Patient Walk: Yes Walk 10 feet (QC): 6 Walk 50ft with 2 Turns (QC): 6 Walk 150 ft (QC): 6 Walking 10ft on Uneven Surface: 6 1 Step (curb) (QC): 6 4 Steps (QC): 6 12 Steps (QC): 6 Picking up an Object (QC): 6 Wheel 50 feet with 2 turns (QC: 9 Wheel 150 feet: 9 PT Plan Treatment/Plan Treatment Plan: Continue Plan of Care Treatment Plan: Bed Mobility, Concurrent Therapy, Education, Functional Activity Marco Antonio, Functional Strength, Group Therapy, Gait, Safety, Therapeutic Exercise, Transfers Treatment Duration: June 21, 2021 Frequency: At least 5 of 7 days/Wk (IRF) Estimated Hrs Per Day: 1.5 hours per day Patient and/or Family Agrees t: Yes Safety Risks/Education Patient Education: Gait Training, Transfer Techniques, Correct Positioning, Disease Process, Safety Issues Teaching Recipient: Patient Teaching Methods: Demonstration, Discussion Response to Teaching: Verbalize Understanding, Return Demonstration, Reinforcement Needed Time/GCodes Time In: 900 Time Out: 1000 Total Billed Treatment Time: 60 Total Billed Treatment 1,GT20m,EX25m,FA15m LUEBBER, ARAMIS A CURRICULUM DIRECTOR May 23, 2021 10:01
[2021-05-23] MEDS: inSUlin ASPART (NovoLOG) 1 UNIT/0.01 ML (CHARGE PER UNIT) SQ SCH ×3 (10:23→17:25)
[2021-05-23] MEDS: inSUlin ASPART (NovoLOG) 1 UNIT/0.01 ML (CHARGE PER UNIT) SC SCH ×4 (10:23→21:22)
--- NOTE | 2021-05-23 11:00 | Occupational Ther Daily Note ---
OT Current Status-Daily Note Subjective Pt up in recliner, agreeable to OT Tx. ADL-Treatment Therapy Code Descriptions/Definitions Functional [place] Measure: 0=Not Assessed/NA 4=Minimal Assistance 1=Total Assistance 5=Supervision or Setup 2=Maximal Assistance 6=Modified [place] 3=Moderate Assistance 7=Complete IndependenceSCALE: Activities may be completed with or without assistive devices. 1-Vuixonqjmy-xvefrih completes the activity by him/herself with no assistance from a helper. 5-Set-up or Clean-up Assistance-helper sets up or cleans up; patient completes activity. [place] assists only prior to or following the activity. 4-Supervision or Touching Assistance-helper provides verbal cues and/or touching/steadying and/or contact guard assistance as patient completes activity. Assistance may be provided throughout the activity or intermittently. 3-Partial/Moderate Assistance-helper does LESS THAN HALF the effort. [place] lifts, holds or supports trunk or limbs, but provides less than half the effort. 2-Substantial/Maximal Assistance-helper does MORE THAN HALF the effort. [place] lifts or holds trunk or limbs and provides more than half the effort. 1-Klwkuzsdr-mubiom does ALL the effort. Patient does none of the effort to co mplete the activity. Or, the assistance of 2 or more helpers is required for the patient to complete the activity. If activity was not attempted, code reason: 7-Patient Refused. 9-Not Applicable-not attempted and the patient did not perform the activity before the current illness, exacerbation or injury. 10-Not Attempted due to Environmental Limitations-(lack of equipment, weather restraints, etc.). 88-Not Attempted due to Medical Conditions or Safety Concerns. Other Treatment Pt up in recliner, agreeable to OT Tx. Pt transferred from recliner to w/c, CGA. OT tx with focus on increasing BUE strength and activity tolerance. Pt propelled w/c around [facility] common area/2nd floor, using BUEs and RLE, taking rest breaks as needed. Pt returned to [facility]. Post tx, pt in recliner, call light in reach and all needs met. Education OT Patient Education: Correct positioning, Energy conservation, Modified ADL techniques, Progress toward Goal/Update tx plan, Purpose of tx/functional activities, Rehab process Teaching Recipient: Patient Teaching Methods: Discussion Response to Teaching: Verbalize Understanding OT Short Term Goals Short Term Goals Time Frame: May 31, 2021 Eatin Oral hygiene: 5 Toileting hygiene: 4 Shower/bathe self: 3 Upper body dressin Lower body dressin Putting on/taking off footwear: 3 OT Acute Coordinator Goals Acute Coordinator Goals Time Frame: Jun 10, 2021 Eating (QC): 6 Oral Hygiene (QC): 6 Toileting Hygiene (QC): 6 Shower/Bathe Self (QC): 5 Upper Body Dressing (QC): 5 Lower Body Dressing (QC): 5 On/Off Footwear (QC): 5 1=Demonstrate adherence to instructed precautions during ADL tasks. 2=Patient will verbalize/demonstrate understanding of assistive devices/modifications for ADL. 3=Patient will improve strength/tolerance for activity to enable patient to perform ADL's. OT Education/Plan Problem List/Assessment Assessment: Decreased Activ Tolerance, Decreased UE Strength, Impaired Funct Balance, Impaired I ADL's, Impaired Self-Care Skills Discharge Recommendations Plan/Recommendations: Continue POC Treatment Plan/Plan of Care Patient would benefit from OT for education, treatment and training to promote independence in ADL's, mobility, safety and/or upper extremity function for ADL's. Plan of Care: ADL Retraining, Functional Mobility, Group Exercise/Act as Ind, UE Funct Exercise/Act Treatment Duration: Jun 10, 2021 Frequency: At least 5 of 7 days/Wk (IRF) Estimated Hrs Per Day: 1.5 hours per day (60-90 min/day) Rehab Potential: Good Time/GCodes Start Time: 10:30 Stop Time: 11:00 Total Time Billed (hr/min): 30 Billed Treatment Time 1, FA 2 SHAWNA DOWELL OT May 23, 2021 10:59
--- NOTE | 2021-05-23 11:32 | Physical Therapy Daily Note ---
PT Daily Note-Current Subjective Pt. c/o fatigue but agrees to Rx. Needs to toilet during Rx. No c/o pain Pain Location: No Pain Reported Mental Status Patient Orientation: Normal For Age Transfers SCALE: Activities may be completed with or without assistive devices. 6-Oenngwfcdu-oznsitl completes the activity by him/herself with no assistance from a helper. 5-Set-up or Clean-up Assistance-helper sets up or cleans up; patient completes activity. [place] assists only prior to or following the activity. 4-Supervision or Touching Assistance-helper provides verbal cues and/or touching/steadying and/or contact guard assistance as patient completes activity. Assistance may be provided throughout the activity or intermittently. 3-Partial/Moderate Assistance-helper does LESS THAN HALF the effort. [place] lifts, holds or supports trunk or limbs, but provides less than half the effort. 2-Substantial/Maximal Assistance-helper does MORE THAN HALF the effort. [place] lifts or holds trunk or limbs and provides more than half the effort. 2-Vjjlfesjr-mebvzz does ALL the effort. Patient does none of the effort to complete the activity. Or, the assistance of 2 or more helpers is required for the patient to complete the activity. If activity was not attempted, code reason: 7-Patient Refused. 9-Not Applicable-not attempted and the patient did not perform the activity before the current illness, exacerbation or injury. 10-Not Attempted due to Environmental Limitations-(lack of equipment, weather restraints, etc.). 88-Not Attempted due to Medical Conditions or Safety Concerns. all sit to stands from recliner and toilet SBA Weight Bearing Right Lower Extremity: Right Full Weight Bearing Left Lower Extremity: Left Weight Bearing/Tolerated Gait Training Does the Patient Walk?: Yes Gait Assistive Device: FWW 50ft x1, 10 ft x 1 FWW SBA, slow, equal step length Exercises Seated Therapy Exercises: Ankle pumps, Sit to stand, Long arc quads, Hip flexion, Hip abd/add Seated Reps: 15 Treatments gait, seated LE ex, toileted managing clothing indep, also cleansed self in standing after BM efficiently Assessment Current Status: Good Progress PT Fdc Goals Fdc Goals PT Fdc Goals Time Frame: June 21, 2021 Roll Left & Right (QC): 6 Sit to Lying (QC): 6 Lying-Sitting on Side/Bed(QC): 6 Sit to Stand (QC): 6 Chair/Fdp-we-Lbknd Xfer(QC): 6 Toilet Transfer (QC): 6 Car Transfer (QC): 6 Does the Patient Walk: Yes Walk 10 feet (QC): 6 Walk 50ft with 2 Turns (QC): 6 Walk 150 ft (QC): 6 Walking 10ft on Uneven Surface: 6 1 Step (curb) (QC): 6 4 Steps (QC): 6 12 Steps (QC): 6 Picking up an Object (QC): 6 Wheel 50 feet with 2 turns (QC: 9 Wheel 150 feet: 9 PT Plan Treatment/Plan Treatment Plan: Continue Plan of Care Treatment Plan: Bed Mobility, Concurrent Therapy, Education, Functional A ctivity Marco Antonio, Functional Strength, Group Therapy, Gait, Safety, Therapeutic Exercise, Transfers Treatment Duration: June 21, 2021 Frequency: At least 5 of 7 days/Wk (IRF) Estimated Hrs Per Day: 1.5 hours per day Patient and/or Family Agrees t: Yes Safety Risks/Education Patient Education: Gait Training, Transfer Techniques, Correct Positioning, Safety Issues Teaching Recipient: Patient Teaching Methods: Demonstration, Discussion Response to Teaching: Verbalize Understanding, Return Demonstration, Reinforcement Needed Time/GCodes Time In: 1100 Time Out: 1130 Total Billed Treatment Time: 30 Total Billed Treatment 1,GT15m,EX15m ARAMIS LARA [employer] PRESS OPERATOR May 23, 2021 11:32
[2021-05-23] MEDS ORDERED: FOSFOMYCIN 3 GM PACK (MONUROL) PO NR (13:00)
[2021-05-23] MEDS ORDERED: EXENATIDE MICROSPHERES SQ SCH (14:00)
[2021-05-23 19:52] VITALS: BP 110/58
--- NOTE | 2021-05-24 06:04 | PM&R Progress Note ---
Subjective HPI/CC On Admission Date Seen by Provider: May 24, 2021 Time Seen by Provider: 11:30 Subjective/Events-last exam 05/24/2021: Patient denies any new issues Working with therapy a lot better Pain is controlled UTI was treated with fosfomycin x1 dose at the bedside 05/23/2021: Patient reports doing better Using less pain meds UTI will be treated with fosfomycin 1 dose Blood sugars improved Bowels are moving 05/22/2021: Pain is improving but requiring a lot of pain medication Urine culture pending No other major concerns Blood sugars improved and will hold insulin for lower sugars 05/21/2021: Pt is doing a lot better JENNA hose and KEVIN wraps will be given for lower extremity edema Will discontinue Statin due to myositis Will bring in her Repatha injection home dosing to take that UA will be ordered for an in and out specimen since her urine seems to be thick and malodorous Overall tolerating therapy Review of Systems General: Fatigue, Malaise Musculoskeletal: leg pain Objective Exam Vital Signs Vital Signs Date Time Temp Pulse Resp B/P (MAP) Pulse Ox O2 Delivery O2 Flow Rate FiO2 05/24/21 20:49 Room Air 05/24/21 19:28 36.4 72 16 122/74 (90) 96 Capillary Refill : General Appearance: No Apparent Distress, WD/WN, Chronically ill, Obese HEENT: PERRL/EOMI, Normal ENT Inspection, Pharynx Normal Neck: Full Range of Motion, Normal Inspection, Non Tender, Supple, Carotid Bruit Respiratory: Chest Non Tender, Lungs Clear, Normal Breath Sounds, No Accessory Muscle Use, No Respiratory Distress Cardiovascular: Regular Rate, Rhythm, No Edema, No Gallop, No JVD, No Murmur, Normal Peripheral Pulses Gastrointestinal: Normal Bowel Sounds, No Organomegaly, No Pulsatile Mass, Non Tender, Soft Back: Normal Inspection, No CVA Tenderness, No Vertebral Tenderness Extremity: Normal Capillary Refill, Normal Inspection, Normal Range of Motion (Except left leg), Non Tender, No Calf Tenderness, No Pedal Edema Neurologic/Psychiatric: Alert, Oriented x3, Normal Mood/Affect, pulmonology physician II-XII Norm as Tested, Abnormal Gait, Depressed Affect, Motor Weakness (Left-sided weakness, generalized weakness) Skin: Normal Color, Warm/Dry Lymphatic: No Adenopathy Results/Procedures Lab Patient resulted labs reviewed. FIM Transfers Therapy Code Descriptions/Definitions Functional [place] Measure: 0=Not Assessed/NA 4=Minimal Assistance 1=Total Assistance 5=Supervision or Setup 2=Maximal Assistance 6=Modified [place] 3=Moderate Assistance 7=Complete IndependenceSCALE: Activities may be completed with or without assistive devices. 1-Kjrmfvixxm-kavvcin completes the activity by him/herself with no assistance from a helper. 5-Set-up or Clean-up Assistance-helper sets up or cleans up; patient completes activity. [place] assists only prior to or following the activity. 4-Supervision or Touching Assistance-helper provides verbal cues and/or touching/steadying and/or contact guard assistance as patient completes activity. Assistance may be provided throughout the activity or intermittently. 3-Partial/Moderate Assistance-helper does LESS THAN HALF the effort. [place] l ifts, holds or supports trunk or limbs, but provides less than half the effort. 2-Substantial/Maximal Assistance-helper does MORE THAN HALF the effort. [place] lifts or holds trunk or limbs and provides more than half the effort. 5-Iavoiamdh-jgchlz does ALL the effort. Patient does none of the effort to complete the activity. Or, the assistance of 2 or more helpers is required for t he patient to complete the activity. If activity was not attempted, code reason: 7-Patient Refused. 9-Not Applicable-not attempted and the patient did not perform the activity before the current illness, exacerbation or injury. 10-Not Attempted due to Environmental Limitations-(lack of equipment, weather restraints, etc.). 88-Not Attempted due to Medical Conditions or Safety Concerns. Roll Left to Right (QC): 6 Sit to Lying (QC): 6 Sit to Stand (QC): 6 Chair/Zsc-gn-Tqxym Xfer(QC): 6 Car Transfer (QC): 3 Gait Training Does the Patient Walk?: Yes Distance: 52' Walk 10 feet (QC): 6 Walk 50 ft with 2 Turns(QC): 6 Walk 150 ft (QC): 88 Walking 10ft/uneven surface-QC: 3 Gait Persons Needed: 1 Gait Assistive Device: FWW Wheelchair Training Does the Pt Use a Wheelchair?: Yes Wheel 50 ft with 2 turns (QC): 4 Wheel 150 ft (QC): 9 Type of Wheelchair: Manual Stair Training #of Steps: 1 1 Step (curb) (QC): 3 4 Steps (QC): 88 12 Steps (QC): 88 Balance Picking up an Object (QC): 88 ADL-Treatment Eating (QC): 6 (IND) Oral Hygiene (QC): 6 (IND ) Shower/Bathe Self (QC): 3 (assist to wash/dry buttocks. Pt able to use LH sponge for LEs.) Upper Body Dressing (QC): 5 Lower Body Dressing (QC): 3 (Min A threading pants on LLE) On/Off Footwear (QC): 2 (Pt able to doff gripper socks, asssist with Tedhose/Kevin Wrap, assist wtih slip on shoes.) Toileting Hygiene (QC): 3 (Min A with hygiene) Toilet Transfer (QC): 4 (CGA on/off BSC over toilet.) Assessment/Plan Assessment and Plan Assess & Plan/Chief Complaint Assessment: Left hip fracture status post repair postop day #7 DM on insulin Previous stroke with left-sided weakness Loop recorder in place Former smoker cessation 2 years ago Hyperlipidemia Hypertension CAD previous stent Postop acute blood loss anemia Great toe amputation Easily tearful since stroke UTI with resistance status post fosfomycin 05/23/2021 1 dose Plan: Aggressive rehab Supportive care Monitor blood sugar Pain control 05/21/2021: Supportive care Hold rapid acting insulin for sugar less than 130 Await urine culture 05/22/2021: Await urine culture Supportive care 05/23/2021: Fosfomycin for UTI Supportive care 05/24/2021: Supportive care Pain control (1) Fracture, intertrochanteric, left femur Status: Acute (2) History of stroke Status: Chronic (3) HTN (hypertension) Status: Chronic (4) CAD (coronary artery disease) Status: Chronic (5) Diabetes Status: Chronic (6) Mixed hyperlipidemia (7) Presence of stent in coronary artery MIYA CASTILLO DO May 24, 2021 06:04
[2021-05-24] MEDS: ASCORBIC ACID (VIT C) 500 MG TABLET PO SCH (06:49)
[2021-05-24] MEDS: MULTIVIT W/MINERALS TAB (THERAGRAN M) PO SCH (06:49)
[2021-05-24] MEDS: inSUlin ASPART (NovoLOG) 1 UNIT/0.01 ML (CHARGE PER UNIT) SC SCH ×4 (06:53→20:30)
[2021-05-24] MEDS: inSUlin ASPART (NovoLOG) 1 UNIT/0.01 ML (CHARGE PER UNIT) SQ SCH ×3 (06:53→17:02)
[2021-05-24 07:30] VITALS: BP 147/82
[2021-05-24] MEDS: ASPIRIN E.C. 81 MG (ECOTRIN) TAB PO SCH ×2 (08:52→17:23)
[2021-05-24] MEDS: PREGABALIN 100 MG (LYRICA) CAPSULE PO SCH ×2 (08:52→20:30)
[2021-05-24] MEDS: PANTOPRAZOLE 40 MG (PROTONIX) TAB PO SCH (08:52)
[2021-05-24] MEDS: VITAMIN D3 125 MCG (5,000 UNITS) CAPSULE PO SCH (08:52)
[2021-05-24] MEDS: LACTOBACILLUS ACIDOPHILUS (PROBIOTIC) CAPSULE PO SCH ×3 (08:53→17:23)
[2021-05-24] MEDS: SENNA W/DOCUSATE (SENOKOT S) TABLET PO SCH ×2 (08:55→20:30)
[2021-05-24] MEDS: DOCUSATE SODIUM 100 MG (COLACE) CAP PO SCH ×2 (08:55→20:31)
[2021-05-24] MEDS: polyethylene glycoL POWDER 17 GM (MIRALAX) PACK PO SCH ×2 (08:55→20:24)
[2021-05-24] MEDS ORDERED: EVOLOCUMAB 140 MG/ML SC SCH (09:00)
[2021-05-24] MEDS: ENOXAPARIN 40 MG/0.4 ML (LOVENOX) SYR SC SCH (09:55)
--- NOTE | 2021-05-24 11:04 | Physical Therapy Daily Note ---
PT Daily Note-Current Subjective Patient sitting in chair upon PT arrival, agreeable to treatment. Reports she feels like her left LE is more swollen today. Rates pain in left hip and LE at 3/10 currently. Transfers SCALE: Activities may be completed with or without assistive devices. 2-Hcshgdjcmy-grydfus completes the activity by him/herself with no assistance from a helper. 5-Set-up or Clean-up Assistance-helper sets up or cleans up; patient completes activity. [place] assists only prior to or following the activity. 4-Supervision or Touching Assistance-helper provides verbal cues and/or touching/steadying and/or contact guard assistance as patient completes activity. Assistance may be provided throughout the activity or intermittently. 3-Partial/Moderate Assistance-helper does LESS THAN HALF the effort. [place] lifts, holds or supports trunk or limbs, but provides less than half the effort. 2-Substantial/Maximal Assistance-helper does MORE THAN HALF the effort. [place] lifts or holds trunk or limbs and provides more than half the effort. 8-Espfmggwl-nosiyg does ALL the effort. Patient does none of the effort to complete the activity. Or, the assistance of 2 or more helpers is required for the patient to complete the activity. If activity was not attempted, code reason: 7-Patient Refused. 9-Not Applicable-not attempted and the patient did not perform the activity before the current illness, exacerbation or injury. 10-Not Attempted due to Environmental Limitations-(lack of equipment, weather restraints, etc.). 88-Not Attempted due to Medical Conditions or Safety Concerns. Sit to Stand (QC): 4 Chair/Zla-bj-Phyzw Xfer(QC): 4 Weight Bearing Right Lower Extremity: Right Full Weight Bearing Left Lower Extremity: Left Weight Bearing/Tolerated Gait Training Does the Patient Walk?: Yes Distance: 120 Walk 10 feet (QC): 4 Walk 50 ft with 2 Turns(QC): 4 Gait Persons Needed: 1 Gait Assistive Device: FWW Assessment Current Status: Good Progress Patient tolerated treatment well. Reports she was very tired after gait training. Patient performed all observed transfers with CGA. Patient ambulates 120 feet with FWW, with CGA and verbal cues for safety, progression, posture and conservation of energy. Patient in chair post treatment with all needs met, nursing notified, call light in hand. PT Shelter Goals Shelter Goals PT Shelter Goals Time Frame: June 21, 2021 Roll Left & Right (QC): 6 Sit to Lying (QC): 6 Lying-Sitting on Side/Bed(QC): 6 Sit to Stand (QC): 6 Chair/Jtw-tk-[place] Xfer(QC): 6 Toilet Transfer (QC): 6 Car Transfer (QC): 6 Does the Patient Walk: Yes Walk 10 feet (QC): 6 Walk 50ft with 2 Turns (QC): 6 Walk 150 ft (QC): 6 Walking 10ft on Uneven Surface: 6 1 Step (curb) (QC): 6 4 Steps (QC): 6 12 Steps (QC): 6 Picking up an Object (QC): 6 Wheel 50 feet with 2 turns (QC: 9 Wheel 150 feet: 9 PT Plan Treatment/Plan Treatment Plan: Continue Plan of Care Treatment Plan: Bed Mobility, Concurrent Therapy, Education, Functional Activity Marco Antonio, Functional Strength, Group Therapy, Gait, Safety, Therapeutic Exercise, Transfers Treatment Duration: June 21, 2021 Frequency: At least 5 of 7 days/Wk (IRF) Estimated Hrs Per Day: 1.5 hours per day Patient and/or Family Agrees t: Yes Safety Risks/Education Patient Education: Gait Training Teaching Recipient: Patient Teaching Methods: Demonstration, Discussion Response to Teaching: Verbalize Understanding, Return Demonstration Time/GCodes Time In: 1044 Time Out: 1059 Total Billed Treatment Time: 15 Total Billed Treatment Visit, KURT Razo PT May 24, 2021 11:04
[2021-05-24] MEDS: CATHETER FLUSH 10 ML SYR IVP SCH ×2 (12:54→20:31)
[2021-05-24] MEDS: ACETAMINOPHEN 325 MG TABLET PO PRN (12:54)
[2021-05-24] MEDS: BACLOFEN 10 MG (LIORESAL) TAB PO PRN ×2 (12:54→20:38)
[2021-05-24 19:28] VITALS: BP 122/74
[2021-05-24] MEDS: ACETAMINOPHEN 500 MG TAB (TYLENOL) PO SCH (20:30)
[2021-05-25] MEDS: ACETAMINOPHEN 325 MG TABLET PO PRN (01:54)
[2021-05-25] MEDS: BACLOFEN 10 MG (LIORESAL) TAB PO PRN ×3 (01:54→21:39)
[2021-05-25] MEDS: ASCORBIC ACID (VIT C) 500 MG TABLET PO SCH (06:19)
[2021-05-25] MEDS: MULTIVIT W/MINERALS TAB (THERAGRAN M) PO SCH (06:19)
[2021-05-25] MEDS: inSUlin ASPART (NovoLOG) 1 UNIT/0.01 ML (CHARGE PER UNIT) SQ SCH ×3 (06:20→17:02)
[2021-05-25] MEDS: inSUlin ASPART (NovoLOG) 1 UNIT/0.01 ML (CHARGE PER UNIT) SC SCH ×4 (06:20→21:41)
[2021-05-25] MEDS: CATHETER FLUSH 10 ML SYR IVP SCH ×3 (06:20→21:42)
--- NOTE | 2021-05-25 07:40 | PM&R Progress Note ---
Subjective HPI/CC On Admission Date Seen by Provider: May 25, 2021 Time Seen by Provider: 12:30 Subjective/Events-last exam 05/25/2021: Patient denies any new issues Blood sugars are good Status post UTI treatment Pain is well controlled Decreasing pain pills 05/24/2021: Patient denies any new issues Working with therapy a lot better Pain is controlled UTI was treated with fosfomycin x1 dose at the bedside 05/23/2021: Patient reports doing better Using less pain meds UTI will be treated with fosfomycin 1 dose Blood sugars improved Bowels are moving 05/22/2021: Pain is improving but requiring a lot of pain medication Urine culture pending No other major concerns Blood sugars improved and will hold insulin for lower sugars 05/21/2021: Pt is doing a lot better JENNA hose and KEVIN wraps will be given for lower extremity edema Will discontinue Statin due to myositis Will bring in her Repatha injection home dosing to take that UA will be ordered for an in and out specimen since her urine seems to be thick and malodorous Overall tolerating therapy Review of Systems General: Fatigue, Malaise Musculoskeletal: leg pain Objective Exam Vital Signs Vital Signs Date Time Temp Pulse Resp B/P (MAP) Pulse Ox O2 Delivery O2 Flow Rate FiO2 05/25/21 21:00 Room Air 05/25/21 20:16 36.9 76 16 144/66 (92) 95 Capillary Refill : General Appearance: No Apparent Distress, WD/WN, Chronically ill, Obese HEENT: PERRL/EOMI, Normal ENT Inspection, Pharynx Normal Neck: Full Range of Motion, Normal Inspection, Non Tender, Supple, Carotid Bruit Respiratory: Chest Non Tender, Lungs Clear, Normal Breath Sounds, No Accessory Muscle Use, No Respiratory Distress Cardiovascular: Regular Rate, Rhythm, No Edema, No Gallop, No JVD, No Murmur, Normal Peripheral Pulses Gastrointestinal: Normal Bowel Sounds, No Organomegaly, No Pulsatile Mass, Non Tender, Soft Back: Normal Inspection, No CVA Tenderness, No Vertebral Tenderness Extremity: Normal Capillary Refill, Normal Inspection, Normal Range of Motion (Except left leg), Non Tender, No Calf Tenderness, No Pedal Edema Neurologic/Psychiatric: Alert, Oriented x3, Normal Mood/Affect, network support manager II-XII Norm as Tested, Abnormal Gait, Depressed Affect, Motor Weakness (Left-sided weakness, generalized weakness) Skin: Normal Color, Warm/Dry Lymphatic: No Adenopathy Results/Procedures Lab Patient resulted labs reviewed. FIM Transfers Therapy Code Descriptions/Definitions Functional [place] Measure: 0=Not Assessed/NA 4=Minimal Assistance 1=Total Assistance 5=Supervision or Setup 2=Maximal Assistance 6=Modified [place] 3=Moderate Assistance 7=Complete IndependenceSCALE: Activities may be completed with or without assistive devices. 2-Bjoelkcyxb-uovyfgt completes the activity by him/herself with no assistance from a helper. 5-Set-up or Clean-up Assistance-helper sets up or cleans up; patient completes activity. [place] assists only prior to or following the activity. 4-Supervision or Touching Assistance-helper provides verbal cues and/or touching/steadying and/or contact guard assistance as patient completes activity. Assistance may be provided throughout the activity or intermittently. 3-Partial/Moderate Assistance-helper does LESS THAN HALF the effort. [place] lifts, holds or supports trunk or limbs, but provides less than half the effort. 2-Substantial/Maximal Assistance-helper does MORE THAN HALF the effort. [place] lifts or holds trunk or limbs and provides more than half the effort. 7-Uzqraqavc-qjikvn does ALL the effort. Patient does none of the effort to complete the activity. Or, the assistance of 2 or more helpers is required for the patient to complete the activity. If activity was not attempted, code reason: 7-Patient Refused. 9-Not Applicable-not attempted and the patient did not perform the activity before the current illness, exacerbation or injury. 10-Not Attempted due to Environmental Limitations-(lack of equipment, weather restraints, etc.). 88-Not Attempted due to Medical Conditions or Safety Concerns. Roll Left to Right (QC): 6 Sit to Lying (QC): 6 Sit to Stand (QC): 4 Chair/Nzk-gi-Bbzlr Xfer(QC): 4 Car Transfer (QC): 3 Gait Training Does the Patient Walk?: Yes Distance: 120 Walk 10 feet (QC): 4 Walk 50 ft with 2 Turns(QC): 4 Walk 150 ft (QC): 88 Walking 10ft/uneven surface-QC: 3 Gait Persons Needed: 1 Gait Assistive Device: FWW Wheelchair Training Does the Pt Use a Wheelchair?: Yes Wheel 50 ft with 2 turns (QC): 4 Wheel 150 ft (QC): 9 Type of Wheelchair: Manual Stair Training #of Steps: 1 1 Step (curb) (QC): 3 4 Steps (QC): 88 12 Steps (QC): 88 Balance Picking up an Object (QC): 88 ADL-Treatment Eating (QC): 6 (IND) Oral Hygiene (QC): 6 (IND ) Shower/Bathe Self (QC): 3 (assist to wash/dry buttocks. Pt able to use LH sponge for LEs.) Upper Body Dressing (QC): 5 Lower Body Dressing (QC): 3 (Min A threading pants on LLE) On/Off Footwear (QC): 2 (Pt able to doff gripper socks, asssist with Tedhose/Kevin Wrap, assist wtih slip on shoes.) Toileting Hygiene (QC): 3 (Min A with hygiene) Toilet Transfer (QC): 4 (CGA on/off BSC over toilet.) Assessment/Plan Assessment and Plan Assess & Plan/Chief Complaint Assessment: Left hip fracture status post repair postop day #8 DM on insulin Previous stroke with left-sided weakness Loop recorder in place Former smoker cessation 2 years ago Hyperlipidemia Hypertension CAD previous stent Postop acute blood loss anemia Great toe amputation Easily tearful since stroke UTI with resistance status post fosfomycin 05/23/2021 1 dose Plan: Aggressive rehab Supportive care Monitor blood sugar Pain control 05/21/2021: Supportive care Hold rapid acting insulin for sugar less than 130 Await urine culture 05/22/2021: Await urine culture Supportive care 05/23/2021: Fosfomycin for UTI Supportive care 05/24/2021: Supportive care Pain control 05/25/2021: Supportive care Decrease pain meds (1) Fracture, intertrochanteric, left femur Status: Acute (2) History of stroke Status: Chronic (3) HTN (hypertension) Status: Chronic (4) CAD (coronary artery disease) Status: Chronic (5) Diabetes Status: Chronic (6) Mixed hyperlipidemia (7) Presence of stent in coronary artery MIYA CASTILLO DO May 25, 2021 07:40
[2021-05-25] MEDS: polyethylene glycoL POWDER 17 GM (MIRALAX) PACK PO SCH ×2 (07:59→21:54)
[2021-05-25] MEDS: SENNA W/DOCUSATE (SENOKOT S) TABLET PO SCH ×2 (07:59→21:54)
[2021-05-25] MEDS: DOCUSATE SODIUM 100 MG (COLACE) CAP PO SCH ×2 (08:00→21:53)
[2021-05-25 08:13] VITALS: BP 127/78
[2021-05-25] MEDS ORDERED: EXENATIDE 2 MG SQ SCH (09:00)
[2021-05-25] MEDS: PREGABALIN 100 MG (LYRICA) CAPSULE PO SCH ×2 (09:12→21:38)
[2021-05-25] MEDS: VITAMIN D3 125 MCG (5,000 UNITS) CAPSULE PO SCH (09:12)
[2021-05-25] MEDS: LACTOBACILLUS ACIDOPHILUS (PROBIOTIC) CAPSULE PO SCH ×3 (09:12→17:34)
[2021-05-25] MEDS: PANTOPRAZOLE 40 MG (PROTONIX) TAB PO SCH (09:12)
[2021-05-25] MEDS: ASPIRIN E.C. 81 MG (ECOTRIN) TAB PO SCH ×2 (09:12→17:34)
[2021-05-25] MEDS: ACETAMINOPHEN 500 MG TAB (TYLENOL) PO SCH ×2 (09:13→21:38)
[2021-05-25] MEDS: ENOXAPARIN 40 MG/0.4 ML (LOVENOX) SYR SC SCH (10:47)
[2021-05-25 20:16] VITALS: BP 144/66
--- NOTE | 2021-05-26 06:07 | PM&R Progress Note ---
Subjective HPI/CC On Admission Date Seen by Provider: May 26, 2021 Time Seen by Provider: 09:30 Subjective/Events-last exam 05/26/2021: Patient dramatically improved No pain is reported currently Moving around well Checked meds and labs 05/25/2021: Patient denies any new issues Blood sugars are good Status post UTI treatment Pain is well controlled Decreasing pain pills 05/24/2021: Patient denies any new issues Working with therapy a lot better Pain is controlled UTI was treated with fosfomycin x1 dose at the bedside 05/23/2021: Patient reports doing better Using less pain meds UTI will be treated with fosfomycin 1 dose Blood sugars improved Bowels are moving 05/22/2021: Pain is improving but requiring a lot of pain medication Urine culture pending No other major concerns Blood sugars improved and will hold insulin for lower sugars 05/21/2021: Pt is doing a lot better JENNA hose and KEVIN wraps will be given for lower extremity edema Will discontinue Statin due to myositis Will bring in her Repatha injection home dosing to take that UA will be ordered for an in and out specimen since her urine seems to be thick and malodorous Overall tolerating therapy Review of Systems General: Fatigue, Malaise Musculoskeletal: leg pain Objective Exam Vital Signs Vital Signs Date Time Temp Pulse Resp B/P (MAP) Pulse Ox O2 Delivery O2 Flow Rate FiO2 05/26/21 20:30 94 Room Air 05/26/21 19:23 36.2 83 18 146/67 (93) Capillary Refill : General Appearance: No Apparent Distress, WD/WN, Chronically ill, Obese HEENT: PERRL/EOMI, Normal ENT Inspection, Pharynx Normal Neck: Full Range of Motion, Normal Inspection, Non Tender, Supple, Carotid Bruit Respiratory: Chest Non Tender, Lungs Clear, Normal Breath Sounds, No Accessory Muscle Use, No Respiratory Distress Cardiovascular: Regular Rate, Rhythm, No Edema, No Gallop, No JVD, No Murmur, Normal Peripheral Pulses Gastrointestinal: Normal Bowel Sounds, No Organomegaly, No Pulsatile Mass, Non Tender, Soft Back: Normal Inspection, No CVA Tenderness, No Vertebral Tenderness Extremity: Normal Capillary Refill, Normal Inspection, Normal Range of Motion (Except left leg), Non Tender, No Calf Tenderness, No Pedal Edema Neurologic/Psychiatric: Alert, Oriented x3, Normal Mood/Affect, human resources mgr II-XII Norm as Tested, Abnormal Gait, Depressed Affect, Motor Weakness (Left-sided weakness, generalized weakness) Skin: Normal Color, Warm/Dry Lymphatic: No Adenopathy Results/Procedures Lab Laboratory Tests 05/26/21 07:02 Patient resulted labs reviewed. FIM Transfers Therapy Code Descriptions/Definitions Functional [place] Measure: 0=Not Assessed/NA 4=Minimal Assistance 1=Total Assistance 5=Supervision or Setup 2=Maximal Assistance 6=Modified [place] 3=Moderate Assistance 7=Complete IndependenceSCALE: Activities may be completed with or without assistive devices. 3-Vfyybaycar-zihzbjw completes the activity by him/herself with no assistance from a helper. 5-Set-up or Clean-up Assistance-helper sets up or cleans up; patient completes activity. [place] assists only prior to or following the activity. 4-Supervision or Touching Assistance-helper provides verbal cues and/or touching/steadying and/or contact guard assistance as patient completes activity. Assistance may be provided throughout the activity or intermittently. 3-Partial/Moderate Assistance-helper does LESS THAN HALF the effort. [place] li fts, holds or supports trunk or limbs, but provides less than half the effort. 2-Substantial/Maximal Assistance-helper does MORE THAN HALF the effort. [place] lifts or holds trunk or limbs and provides more than half the effort. 0-Ksnkshxtm-jwsuge does ALL the effort. Patient does none of the effort to complete the activity. Or, the assistance of 2 or more helpers is required for the patient to complete the activity. If activity was not attempted, code reason: 7-Patient Refused. 9-Not Applicable-not attempted and the patient did not perform the activity before the current illness, exacerbation or injury. 10-Not Attempted due to Environmental Limitations-(lack of equipment, weather restraints, etc.). 88-Not Attempted due to Medical Conditions or Safety Concerns. Roll Left to Right (QC): 6 Sit to Lying (QC): 6 Sit to Stand (QC): 4 Chair/Wyw-tw-Djsae Xfer(QC): 4 Car Transfer (QC): 3 Gait Training Does the Patient Walk?: Yes Distance: 120 Walk 10 feet (QC): 4 Walk 50 ft with 2 Turns(QC): 4 Walk 150 ft (QC): 88 Walking 10ft/uneven surface-QC: 3 Gait Persons Needed: 1 Gait Assistive Device: FWW Wheelchair Training Does the Pt Use a Wheelchair?: Yes Wheel 50 ft with 2 turns (QC): 4 Wheel 150 ft (QC): 9 Type of Wheelchair: Manual Stair Training #of Steps: 1 1 Step (curb) (QC): 3 4 Steps (QC): 88 12 Steps (QC): 88 Balance Picking up an Object (QC): 88 ADL-Treatment Eating (QC): 6 (IND) Oral Hygiene (QC): 6 (IND ) Shower/Bathe Self (QC): 3 (assist to wash/dry buttocks. Pt able to use LH sponge for LEs.) Upper Body Dressing (QC): 5 Lower Body Dressing (QC): 3 (Min A threading pants on LLE) On/Off Footwear (QC): 2 (Pt able to doff gripper socks, asssist with Tedhose/Kevin Wrap, assist wtih slip on shoes.) Toileting Hygiene (QC): 3 (Min A with hygiene) Toilet Transfer (QC): 4 (CGA on/off BSC over toilet.) Assessment/Plan Assessment and Plan Assess & Plan/Chief Complaint Assessment: Left hip fracture status post repair postop day #9 DM on insulin Previous stroke with left-sided weakness Loop recorder in place Former smoker cessation 2 years ago Hyperlipidemia Hypertension CAD previous stent Postop acute blood loss anemia Great toe amputation Easily tearful since stroke UTI with resistance status post fosfomycin 05/23/2021 1 dose Plan: Aggressive rehab Supportive care Monitor blood sugar Pain control 05/21/2021: Supportive care Hold rapid acting insulin for sugar less than 130 Await urine culture 05/22/2021: Await urine culture Supportive care 05/23/2021: Fosfomycin for UTI Supportive care 05/24/2021: Supportive care Pain control 05/25/2021: Supportive care Decrease pain meds 05/26/2021: Continue pain control Blood sugars good (1) Fracture, intertrochanteric, left femur Status: Acute (2) History of stroke Status: Chronic (3) HTN (hypertension) Status: Chronic (4) CAD (coronary artery disease) Status: Chronic (5) Diabetes Status: Chronic (6) Mixed hyperlipidemia (7) Presence of stent in coronary artery MIYA CASTILLO DO May 26, 2021 06:07
[2021-05-26] MEDS: CATHETER FLUSH 10 ML SYR IVP SCH ×3 (06:43→21:19)
[2021-05-26] MEDS: ASCORBIC ACID (VIT C) 500 MG TABLET PO SCH (06:43)
[2021-05-26] MEDS: MULTIVIT W/MINERALS TAB (THERAGRAN M) PO SCH (06:43)
[2021-05-26] MEDS: inSUlin ASPART (NovoLOG) 1 UNIT/0.01 ML (CHARGE PER UNIT) SC SCH ×4 (06:49→21:01)
[2021-05-26] MEDS: inSUlin ASPART (NovoLOG) 1 UNIT/0.01 ML (CHARGE PER UNIT) SQ SCH ×3 (06:49→15:20)
[2021-05-26 07:07] LABS: BASOPHILS # (AUTO) 0.1 10^3/uL (0.0-0.1); BASOPHILS % (AUTO) 1 % (0-10); EOSINOPHILS # (AUTO) 0.3 10^3/uL (0.0-0.3); EOSINOPHILS % (AUTO) 3 % (0-10); HEMATOCRIT 36 % (35-52); HEMOGLOBIN 11.3 g/dL (11.5-16.0); LYMPHOCYTES # (AUTO) 2.5 10^3/uL (1.0-4.0); LYMPHOCYTES % (AUTO) 26 % (12-44); MEAN CORPUSCULAR HEMOGLOBIN 28 pg (25-34); MEAN CORPUSCULAR HGB CONC 32 g/dL (32-36); MEAN CORPUSCULAR VOLUME 89 fL (80-99); MEAN PLATELET VOLUME 9.1 fL (9.0-12.2); MONOCYTES % (AUTO) 10 % (0-12); NEUTROPHILS # (AUTO) 5.5 10^3/uL (1.8-7.8); NEUTROPHILS % (AUTO) 57 % (42-75); PLATELET COUNT 485 10^3/uL (130-400); WHITE BLOOD COUNT 9.6 10^3/uL (4.3-11.0)
[2021-05-26 07:13] VITALS: BP 146/67
[2021-05-26 07:28] LABS: ALBUMIN 3.2 GM/DL (3.2-4.5); BILIRUBIN,TOTAL 0.4 MG/DL (0.1-1.0); CREATININE SERUM 0.91 MG/DL (0.60-1.30); POTASSIUM 4.5 MMOL/L (3.6-5.0); TOTAL PROTEIN 6.5 GM/DL (6.4-8.2)
[2021-05-26] MEDS: BACLOFEN 10 MG (LIORESAL) TAB PO PRN ×2 (09:05→21:19)
[2021-05-26] MEDS: PREGABALIN 100 MG (LYRICA) CAPSULE PO SCH ×2 (09:05→21:00)
[2021-05-26] MEDS: VITAMIN D3 125 MCG (5,000 UNITS) CAPSULE PO SCH (09:05)
[2021-05-26] MEDS: ASPIRIN E.C. 81 MG (ECOTRIN) TAB PO SCH ×2 (09:06→17:10)
[2021-05-26] MEDS: LACTOBACILLUS ACIDOPHILUS (PROBIOTIC) CAPSULE PO SCH ×3 (09:06→17:10)
[2021-05-26] MEDS: PANTOPRAZOLE 40 MG (PROTONIX) TAB PO SCH (09:06)
[2021-05-26] MEDS: ACETAMINOPHEN 500 MG TAB (TYLENOL) PO SCH ×2 (09:06→21:00)
[2021-05-26] MEDS: ENOXAPARIN 40 MG/0.4 ML (LOVENOX) SYR SC SCH (09:08)
[2021-05-26] MEDS: DOCUSATE SODIUM 100 MG (COLACE) CAP PO SCH ×2 (09:19→21:00)
[2021-05-26] MEDS: SENNA W/DOCUSATE (SENOKOT S) TABLET PO SCH ×2 (09:20→21:00)
[2021-05-26] MEDS: polyethylene glycoL POWDER 17 GM (MIRALAX) PACK PO SCH ×2 (09:20→21:00)
--- NOTE | 2021-05-26 09:48 | Physical Therapy Daily Note ---
PT Daily Note-Current Subjective Pt was sittting upright in chair upon arrival. Pt agrees to PT. Pt states she is feeling better and does not have any pain today. Mental Status Patient Orientation: Person, Place, Time, Situation Attachments: IV Transfers SCALE: Activities may be completed with or without assistive devices. 7-Uxowrarbmn-ipgvigz completes the activity by him/herself with no assistance from a helper. 5-Set-up or Clean-up Assistance-helper sets up or cleans up; patient completes activity. [place] assists only prior to or following the activity. 4-Supervision or Touching Assistance-helper provides verbal cues and/or touc eli/steadying and/or contact guard assistance as patient completes activity. Assistance may be provided throughout the activity or intermittently. 3-Partial/Moderate Assistance-helper does LESS THAN HALF the effort. [place] lifts, holds or supports trunk or limbs, but provides less than half the effort. 2-Substantial/Maximal Assistance-helper does MORE THAN HALF the effort. [place] lifts or holds trunk or limbs and provides more than half the effort. 5-Tsqahaseu-trjacd does ALL the effort. Patient does none of the effort to complete the activity. Or, the assistance of 2 or more helpers is required for the patient to complete the activity. If activity was not attempted, code reason: 7-Patient Refused. 9-Not Applicable-not attempted and the patient did not perform the activity before the current illness, exacerbation or injury. 10-Not Attempted due to Environmental Limitations-(lack of equipment, weather restraints, etc.). 88-Not Attempted due to Medical Conditions or Safety Concerns. Sit to Stand (QC): 4 Pt is stand by assist at beginning of treatment progresses to contact guard by end of treatment. Weight Bearing Right Lower Extremity: Right Full Weight Bearing Left Lower Extremity: Left Weight Bearing/Tolerated Gait Training Does the Patient Walk?: Yes Walk 10 feet (QC): 4 Walk 50 ft with 2 Turns(QC): 4 Walk 150 ft (QC): 4 Gait Persons Needed: 1 Gait Assistive Device: FWW Wheelchair Training Does the Pt Use a Wheelchair?: No Exercises Seated Therapy Exercises: Ankle pumps, Sit to stand, Long arc quads Seated Reps: 12 Standing: Hip Abduction, Hamstring curls, Heel/toe raises, Marching, Sit to Stand Standing Reps: 12 NuStep Minutes: 10 NuStep Workload: 1 Treatments Dons hospital socks as pt can wear regular socks due to swelling. OT will bathing and donning JENNA hoses/LUCY wrap after bath. TF to standing and amb. in hallway. Pt takes short RB then uses NuStep for 10m at WL 3. After short RB, pt completes Standing EX at //bars, taking RB as needed. Pt amb. in hallway before returning to room to rest in recliner. All needs met, call light in hand. Assessment Current Status: Good Progress Pt needs occasional RB due to fatigue and muscle weakness. PT Halfway Goals Halfway Goals PT Genetic Scientist Goals Time Frame: June 21, 2021 Roll Left & Right (QC): 6 Sit to Lying (QC): 6 Lying-Sitting on Side/Bed(QC): 6 Sit to Stand (QC): 6 Chair/Nvp-ol-Hhyky Xfer(QC): 6 Toilet Transfer (QC): 6 Car Transfer (QC): 6 Does the Patient Walk: Yes Walk 10 feet (QC): 6 Walk 50ft with 2 Turns (QC): 6 Walk 150 ft (QC): 6 Walking 10ft on Uneven Surface: 6 1 Step (curb) (QC): 6 4 Steps (QC): 6 12 Steps (QC): 6 Picking up an Object (QC): 6 Wheel 50 feet with 2 turns (QC: 9 Wheel 150 feet: 9 PT Plan Problem List Problem List: Activity Tolerance Treatment/Plan Treatment Plan: Continue Plan of Care Treatment Plan: Bed Mobility, Concurrent Therapy, Education, Functional Activity Marco Antonio, Functional Strength, Group Therapy, Gait, Safety, Therapeutic Exercise, Transfers Treatment Duration: June 21, 2021 Frequency: At least 5 of 7 days/Wk (IRF) Estimated Hrs Per Day: 1.5 hours per day Patient and/or Family Agrees t: Yes Safety Risks/Education Patient Education: Gait Training, Correct Positioning, Safety Issues Teaching Recipient: Patient Teaching Methods: Demonstration, Discussion Response to Teaching: Verbalize Understanding, Return Demonstration Time/GCodes Time In: 800 Time Out: 900 Total Billed Treatment Time: 60 Total Billed Treatment 1, EX x2(30 min) GT(15 min) FA(15 min) JOAN PLASENCIA COPPER MINER BLASTING May 26, 2021 09:48
--- NOTE | 2021-05-26 10:15 | Occupational Ther Daily Note ---
OT Current Status-Daily Note Subjective Pt up in recliner, agreeable to OT Tx. Mental Status/Objective Patient Orientation: Person, Place, Time, Situation ADL-Treatment Therapy Code Descriptions/Definitions Functional [place] Measure: 0=Not Assessed/NA 4=Minimal Assistance 1=Total Assistance 5=Supervision or Setup 2=Maximal Assistance 6=Modified [place] 3=Moderate Assistance 7=Complete IndependenceSCALE: Activities may be completed with or without assistive devices. 0-Xhabltmdrt-ewvrjmr completes the activity by him/herself with no assistance from a helper. 5-Set-up or Clean-up Assistance-helper sets up or cleans up; patient completes activity. [place] assists only prior to or following the activity. 4-Supervision or Touching Assistance-helper provides verbal cues and/or touching/steadying and/or contact guard assistance as patient completes activity. Assistance may be provided throughout the activity or intermittently. 3-Partial/Moderate Assistance-helper does LESS THAN HALF the effort. [place] lifts, holds or supports trunk or limbs, but provides less than half the effort. 2-Substantial/Maximal Assistance-helper does MORE THAN HALF the effort. [place] lifts or holds trunk or limbs and provides more than half the effort. 5-Plmehmxhg-ivsvwb does ALL the effort. Patient does none of the effort to complete the activity. Or, the assistance of 2 or more helpers is required for the patient to complete the activity. If activity was not attempted, code reason: 7-Patient Refused. 9-Not Applicable-not attempted and the patient did not perform the activity before the current illness, exacerbation or injury. 10-Not Attempted due to Environmental Limitations-(lack of equipment, weather restraints, etc.). 88-Not Attempted due to Medical Conditions or Safety Concerns. Eating (QC): 6 (IND per pt report.) Oral Hygiene (QC): 6 (IND seated) Shower/Bathe Self (QC): 5 (set up) Upper Body Dressing (QC): 5 (set up) Lower Body Dressing (QC): 4 (SBA) On/Off Footwear: 2 (Max A with tedhose/Kevin wraps and slip on shoes.) Toileting Hygiene (QC): 4 (SBA) Toilet Transfer (QC): 4 (SBA on/off BSC over toilet.) Other Treatment Pt up in recliner, used FWW to transfer into bathroom and onto [facility] [place] toilet. Pt completed toileting with SBA, then transferred to CA. Pt doffed clothes at CA, completed shower, dried off, then transferred to w/c to don clothes. OT tx with focus on increasing BUE strength and activity tolerance, pt propelled w/c to therapy gym. Pt completed arm bike x15 mins, 15 watt resistance, no rest breaks. She propelled w/c back to her room, transferring to recliner with SBA. Post tx, pt up in recliner, call light in reach and all needs met. Education OT Patient Education: Correct positioning, Energy conservation, Modified ADL techniques, Progress toward Goal/Update tx plan, Purpose of tx/functional activities, Rehab process Teaching Recipient: Patient Teaching Methods: Discussion Response to Teaching: Verbalize Understanding OT Short Term Goals Short Term Goals Time Frame: May 31, 2021 Eatin Oral hygiene: 5 Toileting hygiene: 4 Shower/bathe self: 3 Upper body dressin Lower body dressin Putting on/taking off footwear: 3 OT Pastry Sous Chef Goals Longterm Goals Time Frame: Jun 10, 2021 Eating (QC): 6 Oral Hygiene (QC): 6 Toileting Hygiene (QC): 6 Shower/Bathe Self (QC): 5 Upper Body Dressing (QC): 5 Lower Body Dressing (QC): 5 On/Off Footwear (QC): 5 1=Demonstrate adherence to instructed precautions during ADL tasks. 2=Patient will verbalize/demonstrate understanding of assistive devices/modifications for ADL. 3=Patient will improve strength/tolerance for activity to enable patient to perform ADL's. OT Education/Plan Problem List/Assessment Assessment: Decreased Activ Tolerance, Decreased UE Strength, Impaired Funct Balance, Impaired I ADL's, Impaired Self-Care Skills Discharge Recommendations Plan/Recommendations: Continue POC Treatment Plan/Plan of Care Patient would benefit from OT for education, treatment and training to promote independence in ADL's, mobility, safety and/or upper extremity function for ADL's. Plan of Care: ADL Retraining, Functional Mobility, Group Exercise/Act as Ind, UE Funct Exercise/Act Treatment Duration: Jun 10, 2021 Frequency: At least 5 of 7 days/Wk (IRF) Estimated Hrs Per Day: 1.5 hours per day (60-90 min/day) Rehab Potential: Good Time/GCodes Start Time: 09:00 Stop Time: 10:30 Total Time Billed (hr/min): 90 Billed Treatment Time 1, ADL 5 (75'), EX (15') SHAWNA DOWELL OT May 26, 2021 10:15
--- NOTE | 2021-05-26 11:13 | Progress Note ---
UMESH HANEY MED STUDENT 05/26/21 1113: Progress Note Shahida is having a great day today. She feels that she is getting stronger with each passing day. Her pain is well controlled on her current medication regimen. She has not other concerns today. Per PT she was SBA at the beginning of her treatment and progressed to contact guard by the end. OT is really working with her on increasing her bilateral upper extremity strength. She has continued to progress each day. HAVEN SHAVER DO 05/27/21 0533: Supervisory-Addendum Brief Verification & Attestation Participated in pt care: history, MDM, physical Personally performed: exam, history, MDM, supervision of care Care discussed with: Medical Student Procedures: n/a Results interpretation: Verified all documentation Verification and Attestation of Medical Student E/M Service A medical student performed and documented this service in my presence. I reviewed and verified all information documented by the medical student and made modifications to such information, when appropriate. I personally performed the physical exam and medical decision making. Haven Shaver, May 27, 2021,05:33 UMESH HANEY MED STUDENT May 26, 2021 11:13 HAVEN SHAVER DO May 27, 2021 05:33
--- NOTE | 2021-05-26 13:30 | Physical Therapy Daily Note ---
PT Daily Note-Current Subjective Pt sitting upright in chair upon arrival. Pt agrees to PT. Pt states she is sore but no pain. Mental Status Patient Orientation: Person, Place, Time, Situation Attachments: IV Transfers SCALE: Activities may be completed with or without assistive devices. 5-Uxviyifggs-lcorwph completes the activity by him/herself with no assistance from a helper. 5-Set-up or Clean-up Assistance-helper sets up or cleans up; patient completes activity. [place] assists only prior to or following the activity. 4-Supervision or Touching Assistance-helper provides verbal cues and/or touching/steadying and/or contact guard assistance as patient completes activity. Assistance may be provided throughout the activity or intermittently. 3-Partial/Moderate Assistance-helper does LESS THAN HALF the effort. [place] lifts, holds or supports trunk or limbs, but provides less than half the effort. 2-Substantial/Maximal Assistance-helper does MORE THAN HALF the effort. [place] lifts or holds trunk or limbs and provides more than half the effort. 9-Gncflemdz-qdffvw does ALL the effort. Patient does none of the effort to complete the activity. Or, the assistance of 2 or more helpers is required for the patient to complete the activity. If activity was not attempted, code reason: 7-Patient Refused. 9-Not Applicable-not attempted and the patient did not perform the activity before the current illness, exacerbation or injury. 10-Not Attempted due to Environmental Limitations-(lack of equipment, weather restraints, etc.). 88-Not Attempted due to Medical Conditions or Safety Concerns. Sit to Stand (QC): 5 Weight Bearing Right Lower Extremity: Right Full Weight Bearing Left Lower Extremity: Left Weight Bearing/Tolerated Gait Training Does the Patient Walk?: Yes Distance: 175' x2 Walk 10 feet (QC): 4 Walk 50 ft with 2 Turns(QC): 4 Walk 150 ft (QC): 4 Gait Persons Needed: 1 Gait Assistive Device: FWW Wheelchair Training Does the Pt Use a Wheelchair?: No Exercises Seated Therapy Exercises: Ankle pumps, Long arc quads, Hip abd/add, Glut set Seated Reps: 12 Treatments TF to standing and amb. in hallway, taking RB as needed. Pt returns to room to rest then completes Seated Ex. All needs met, call light in hand. Assessment Current Status: Good Progress Pt did not ask for as many rest breaks during treatment. Pt is becoming better at walking longer distances without rest breaks. PT [place] [employer] Carrier Goals [facility] Goals PT Penitentiary Goals Time Frame: June 21, 2021 Roll Left & Right (QC): 6 Sit to Lying (QC): 6 Lying-Sitting on Side/Bed(QC): 6 Sit to Stand (QC): 6 Chair/Fri-uy-Spkqd Xfer(QC): 6 Toilet Transfer (QC): 6 Car Transfer (QC): 6 Does the Patient Walk: Yes Walk 10 feet (QC): 6 Walk 50ft with 2 Turns (QC): 6 Walk 150 ft (QC): 6 Walking 10ft on Uneven Surface: 6 1 Step (curb) (QC): 6 4 Steps (QC): 6 12 Steps (QC): 6 Picking up an Object (QC): 6 Wheel 50 feet with 2 turns (QC: 9 Wheel 150 feet: 9 PT Plan Problem List Problem List: Activity Tolerance Treatment/Plan Treatment Plan: Continue Plan of Care Treatment Plan: Bed Mobility, Concurrent Therapy, Education, Functional Activity Marco Antonio, Functional Strength, Group Therapy, Gait, Safety, Therapeutic Exercise, Transfers Treatment Duration: June 21, 2021 Frequency: At least 5 of 7 days/Wk (IRF) Estimated Hrs Per Day: 1.5 hours per day Patient and/or Family Agrees t: Yes Safety Risks/Education Patient Education: Gait Training, Correct Positioning, Safety Issues Teaching Recipient: Patient Teaching Methods: Demonstration, Discussion Response to Teaching: Verbalize Understanding, Return Demonstration Time/GCodes Time In: 1300 Time Out: 1330 Total Billed Treatment Time: 30 Total Billed Treatment 1, GT (15 min) EX (15 min) JOAN PLASENCIA EQUITIES ANALYST May 26, 2021 13:30
[2021-05-26] MEDS: ACETAMINOPHEN 325 MG TABLET PO PRN (16:50)
[2021-05-26 19:23] VITALS: BP 146/67
--- NOTE | 2021-05-27 06:22 | PM&R Progress Note ---
Subjective HPI/CC On Admission Date Seen by Provider: May 27, 2021 Time Seen by Provider: 09:30 Subjective/Events-last exam 05/27/2021: Patient doing really well Pain is much improved Only using Tylenol and baclofen no narcotics used Checked meds labs 05/26/2021: Patient dramatically improved No pain is reported currently Moving around well Checked meds and labs 05/25/2021: Patient denies any new issues Blood sugars are good Status post UTI treatment Pain is well controlled Decreasing pain pills 05/24/2021: Patient denies any new issues Working with therapy a lot better Pain is controlled UTI was treated with fosfomycin x1 dose at the bedside 05/23/2021: Patient reports doing better Using less pain meds UTI will be treated with fosfomycin 1 dose Blood sugars improved Bowels are moving 05/22/2021: Pain is improving but requiring a lot of pain medication Urine culture pending No other major concerns Blood sugars improved and will hold insulin for lower sugars 05/21/2021: Pt is doing a lot better JENNA hose and KEVIN wraps will be given for lower extremity edema Will discontinue Statin due to myositis Will bring in her Repatha injection home dosing to take that UA will be ordered for an in and out specimen since her urine seems to be thick and malodorous Overall tolerating therapy Review of Systems General: Fatigue, Malaise Objective Exam Vital Signs Vital Signs Date Time Temp Pulse Resp B/P (MAP) Pulse Ox O2 Delivery O2 Flow Rate FiO2 05/27/21 20:20 Room Air 05/27/21 20:10 37.0 72 16 146/81 (102) 96 Capillary Refill : General Appearance: No Apparent Distress, WD/WN, Chronically ill, Obese HEENT: PERRL/EOMI, Normal ENT Inspection, Pharynx Normal Neck: Full Range of Motion, Normal Inspection, Non Tender, Supple, Carotid Bruit Respiratory: Chest Non Tender, Lungs Clear, Normal Breath Sounds, No Accessory Muscle Use, No Respiratory Distress Cardiovascular: Regular Rate, Rhythm, No Edema, No Gallop, No JVD, No Murmur, Normal Peripheral Pulses Gastrointestinal: Normal Bowel Sounds, No Organomegaly, No Pulsatile Mass, Non Tender, Soft Back: Normal Inspection, No CVA Tenderness, No Vertebral Tenderness Extremity: Normal Capillary Refill, Normal Inspection, Normal Range of Motion (Except left leg), Non Tender, No Calf Tenderness, No Pedal Edema Neurologic/Psychiatric: Alert, Oriented x3, Normal Mood/Affect, executive director of marketing II-XII Norm as Tested, Abnormal Gait, Depressed Affect, Motor Weakness (Left-sided weakness, generalized weakness) Skin: Normal Color, Warm/Dry Lymphatic: No Adenopathy Results/Procedures Lab Patient resulted labs reviewed. FIM Transfers Therapy Code Descriptions/Definitions Functional [place] Measure: 0=Not Assessed/NA 4=Minimal Assistance 1=Total Assistance 5=Supervision or Setup 2=Maximal Assistance 6=Modified [place] 3=Moderate Assistance 7=Complete IndependenceSCALE: Activities may be completed with or without assistive devices. 3-Jtrhdxgrxy-uwjoedc completes the activity by him/herself with no assistance from a helper. 5-Set-up or Clean-up Assistance-helper sets up or cleans up; patient completes activity. [place] assists only prior to or following the activity. 4-Supervision or Touching Assistance-helper provides verbal cues and/or touching/steadying and/or contact guard assistance as patient completes activity. Assistance may be provided throughout the activity or intermittently. 3-Partial/Moderate Assistance-helper does LESS THAN HALF the effort. [place] lifts, holds or supports trunk or limbs, but provides less than half the effort. 2-Substantial/Maximal Assistance-helper does MORE THAN HALF the effort. [place] lifts or holds trunk or limbs and provides more than half the effort. 1-Tgurhchxi-rtgsei does ALL the effort. Patient does none of the effort to complete the activity. Or, the assistance of 2 or more helpers is required for the patient to complete the activity. If activity was not attempted, code reason: 7-Patient Refused. 9-Not Applicable-not attempted and the patient did not perform the activity before the current illness, exacerbation or injury. 10-Not Attempted due to Environmental Limitations-(lack of equipment, weather restraints, etc.). 88-Not Attempted due to Medical Conditions or Safety Concerns. Roll Left to Right (QC): 6 Sit to Lying (QC): 6 Sit to Stand (QC): 5 Chair/Uyc-ru-Kdtjl Xfer(QC): 4 Car Transfer (QC): 3 Gait Training Does the Patient Walk?: Yes Distance: 175' x2 Walk 10 feet (QC): 4 Walk 50 ft with 2 Turns(QC): 4 Walk 150 ft (QC): 4 Walking 10ft/uneven surface-QC: 3 Gait Persons Needed: 1 Gait Assistive Device: FWW Wheelchair Training Does the Pt Use a Wheelchair?: No Wheel 50 ft with 2 turns (QC): 4 Wheel 150 ft (QC): 9 Type of Wheelchair: Manual Stair Training #of Steps: 1 1 Step (curb) (QC): 3 4 Steps (QC): 88 12 Steps (QC): 88 Balance Picking up an Object (QC): 88 ADL-Treatment Eating (QC): 6 (IND per pt report.) Oral Hygiene (QC): 6 (IND seated) Shower/Bathe Self (QC): 5 (set up) Upper Body Dressing (QC): 5 (set up) Lower Body Dressing (QC): 4 (SBA) On/Off Footwear (QC): 2 (Max A with tedhose/Kevin wraps and slip on shoes.) Toileting Hygiene (QC): 4 (SBA) Toilet Transfer (QC): 4 (SBA on/off BSC over toilet.) Assessment/Plan Assessment and Plan Assess & Plan/Chief Complaint Assessment: Left hip fracture status post repair postop day #10 DM on insulin Previous stroke with left-sided weakness Loop recorder in place Former smoker cessation 2 years ago Hyperlipidemia Hypertension CAD previous stent Postop acute blood loss anemia Great toe amputation Easily tearful since stroke UTI with resistance status post fosfomycin 05/23/2021 1 dose Plan: Aggressive rehab Supportive care Monitor blood sugar Pain control 05/21/2021: Supportive care Hold rapid acting insulin for sugar less than 130 Await urine culture 05/22/2021: Await urine culture Supportive care 05/23/2021: Fosfomycin for UTI Supportive care 05/24/2021: Supportive care Pain control 05/25/2021: Supportive care Decrease pain meds 05/26/2021: Continue pain control Blood sugars good 05/27/21: Supportive care Monitor closely (1) Fracture, intertrochanteric, left femur Status: Acute (2) History of stroke Status: Chronic (3) HTN (hypertension) Status: Chronic (4) CAD (coronary artery disease) Status: Chronic (5) Diabetes Status: Chronic (6) Mixed hyperlipidemia (7) Presence of stent in coronary artery MIYA CASTILLO DO May 27, 2021 06:22
[2021-05-27] MEDS: inSUlin ASPART (NovoLOG) 1 UNIT/0.01 ML (CHARGE PER UNIT) SQ SCH ×3 (06:30→16:58)
[2021-05-27] MEDS: inSUlin ASPART (NovoLOG) 1 UNIT/0.01 ML (CHARGE PER UNIT) SC SCH ×4 (06:30→21:01)
[2021-05-27] MEDS: MULTIVIT W/MINERALS TAB (THERAGRAN M) PO SCH (06:34)
[2021-05-27] MEDS: ASCORBIC ACID (VIT C) 500 MG TABLET PO SCH (06:34)
[2021-05-27] MEDS: CATHETER FLUSH 10 ML SYR IVP SCH ×3 (06:34→21:01)
[2021-05-27 08:00] VITALS: BP 136/59
[2021-05-27] MEDS: VITAMIN D3 125 MCG (5,000 UNITS) CAPSULE PO SCH (08:12)
[2021-05-27] MEDS: ASPIRIN E.C. 81 MG (ECOTRIN) TAB PO SCH ×2 (08:12→17:20)
[2021-05-27] MEDS: LACTOBACILLUS ACIDOPHILUS (PROBIOTIC) CAPSULE PO SCH ×3 (08:12→17:20)
[2021-05-27] MEDS: PREGABALIN 100 MG (LYRICA) CAPSULE PO SCH ×2 (08:12→20:59)
[2021-05-27] MEDS: PANTOPRAZOLE 40 MG (PROTONIX) TAB PO SCH (08:12)
[2021-05-27] MEDS: ACETAMINOPHEN 500 MG TAB (TYLENOL) PO SCH ×2 (08:13→21:00)
[2021-05-27] MEDS: BACLOFEN 10 MG (LIORESAL) TAB PO PRN ×2 (08:13→20:59)
[2021-05-27] MEDS: polyethylene glycoL POWDER 17 GM (MIRALAX) PACK PO SCH ×2 (08:16→19:54)
[2021-05-27] MEDS: DOCUSATE SODIUM 100 MG (COLACE) CAP PO SCH ×2 (08:16→19:54)
[2021-05-27] MEDS: SENNA W/DOCUSATE (SENOKOT S) TABLET PO SCH ×2 (08:17→19:54)
[2021-05-27] MEDS: ENOXAPARIN 40 MG/0.4 ML (LOVENOX) SYR SC SCH (10:30)
--- NOTE | 2021-05-27 11:15 | Physical Therapy Daily Note ---
PT Daily Note-Current Subjective Pt sitting in recliner in room upon arrival. Nurse giving morning meds and pt agrees to PT. Mental Status Patient Orientation: Person, Place, Time, Situation Transfers SCALE: Activities may be completed with or without assistive devices. 0-Glqylirxeq-elhoaak completes the activity by him/herself with no assistance from a helper. 5-Set-up or Clean-up Assistance-helper sets up or cleans up; patient completes activity. [place] assists only prior to or following the activity. 4-Supervision or Touching Assistance-helper provides verbal cues and/or touching/steadying and/or contact guard assistance as patient completes activit y. Assistance may be provided throughout the activity or intermittently. 3-Partial/Moderate Assistance-helper does LESS THAN HALF the effort. [place] lifts, holds or supports trunk or limbs, but provides less than half the effort. 2-Substantial/Maximal Assistance-helper does MORE THAN HALF the effort. [place] lifts or holds trunk or limbs and provides more than half the effort. 9-Kudlktabx-tbegdb does ALL the effort. Patient does none of the effort to complete the activity. Or, the assistance of 2 or more helpers is required for the patient to complete the activity. If activity was not attempted, code reason: 7-Patient Refused. 9-Not Applicable-not attempted and the patient did not perform the activity before the current illness, exacerbation or injury. 10-Not Attempted due to Environmental Limitations-(lack of equipment, weather restraints, etc.). 88-Not Attempted due to Medical Conditions or Safety Concerns. Sit to Stand (QC): 5 Weight Bearing Right Lower Extremity: Right Full Weight Bearing Left Lower Extremity: Left Weight Bearing/Tolerated Gait Training Does the Patient Walk?: Yes Distance: 150' x2 Walk 10 feet (QC): 5 Walk 50 ft with 2 Turns(QC): 5 Walk 150 ft (QC): 5 Gait Persons Needed: 1 Gait Assistive Device: FWW Wheelchair Training Does the Pt Use a Wheelchair?: No Treatments TF to standing then uses BR before leaving room for tx. Pt amb. in hallway and works on dynamic balance activities with cones and balloons as well as Standing EX at //bars. Pt amb. in hallway and returns to room to rest in recliner at end of tx. All needs met, call light in hand. Assessment Current Status: Good Progress Pt demonstrates increased strength and activity tolerance as well improving balance. PT Custodial Goals Custodial Goals PT Rope Maker Goals Time Frame: June 21, 2021 Roll Left & Right (QC): 6 Sit to Lying (QC): 6 Lying-Sitting on Side/Bed(QC): 6 Sit to Stand (QC): 6 Chair/Yvf-wx-Yxqzq Xfer(QC): 6 Toilet Transfer (QC): 6 Car Transfer (QC): 6 Does the Patient Walk: Yes Walk 10 feet (QC): 6 Walk 50ft with 2 Turns (QC): 6 Walk 150 ft (QC): 6 Walking 10ft on Uneven Surface: 6 1 Step (curb) (QC): 6 4 Steps (QC): 6 12 Steps (QC): 6 Picking up an Object (QC): 6 Wheel 50 feet with 2 turns (QC: 9 Wheel 150 feet: 9 PT Plan Treatment/Plan Treatment Plan: Continue Plan of Care Treatment Plan: Bed Mobility, Concurrent Therapy, Education, Functional Activity Marco Antonio, Functional Strength, Group Therapy, Gait, Safety, Therapeutic Exercise, Transfers Treatment Duration: June 21, 2021 Frequency: At least 5 of 7 days/Wk (IRF) Estimated Hrs Per Day: 1.5 hours per day Patient and/or Family Agrees t: Yes Safety Risks/Education Patient Education: Correct Positioning, Safety Issues Teaching Recipient: Patient Teaching Methods: Discussion Response to Teaching: Verbalize Understanding Time/GCodes Time In: 800 Time Out: 900 Total Billed Treatment Time: 60 Total Billed Treatment 1, FA x2 (30m), EX (15m) & GT (15m) JOAN PLASENCIA TRACTOR OPERATOR HELPER May 27, 2021 11:14
--- NOTE | 2021-05-27 11:33 | Occupational Ther Daily Note ---
OT Current Status-Daily Note Subjective Pt alert, sitting in recliner. Pt agrees to therapy. No c/o pain. Mental Status/Objective Patient Orientation: Person, Place, Time, Situation ADL-Treatment Pt declines shower, stating that shower was completed yesterday. Pt agrees to dress, toilet and complete oral hygiene. Independent toilet transfer and toileting. After set up, pt able to complete upper/lower body dressing by self. Assist to don JENNA hose and shoes on B LE's. Sitting at sink, pt able to complete oral care independently. Therapy Code Descriptions/Definitions Functional [place] Measure: 0=Not Assessed/NA 4=Minimal Assistance 1=Total Assistance 5=Supervision or Setup 2=Maximal Assistance 6=Modified [place] 3=Moderate Assistance 7=Complete IndependenceSCALE: Activities may be completed with or without assistive devices. 5-Sjcromwhuf-oytjnpb completes the activity by him/herself with no assistance from a helper. 5-Set-up or Clean-up Assistance-helper sets up or cleans up; patient completes activity. [place] assists only prior to or following the activity. 4-Supervision or Touching Assistance-helper provides verbal cues and/or touching/steadying and/or contact guard assistance as patient completes activity. Assistance may be provided throughout the activity or intermittently. 3-Partial/Moderate Assistance-helper does LESS THAN HALF the effort. [place] lifts, holds or supports trunk or limbs, but provides less than half the effort. 2-Substantial/Maximal Assistance-helper does MORE THAN HALF the effort. [place] lifts or holds trunk or limbs and provides more than half the effort. 5-Gbgobvuuq-hloiuo does ALL the effort. Patient does none of the effort to complete the activity. Or, the assistance of 2 or more helpers is required for the patient to complete the activity. If activity was not attempted, code reason: 7-Patient Refused. 9-Not Applicable-not attempted and the patient did not perform the activity before the current illness, exacerbation or injury. 10-Not Attempted due to Environmental Limitations-(lack of equipment, weather restraints, etc.). 88-Not Attempted due to Medical Conditions or Safety Concerns. Oral Hygiene (QC): 6 Upper Body Dressing (QC): 5 Lower Body Dressing (QC): 5 On/Off Footwear: 2 Toileting Hygiene (QC): 6 Toilet Transfer (QC): 6 Other Treatment Pt ambulated to therapy gym using FWW. Pt completed med/heavy resistance theraband exercises for B UE's. Skilled instruction given for correct technique and modifications when necessary. HEP for theraband given and pt able to complete with minimal verbal/visual cues. 7 exercises 2 sets 10 reps. Pt then completed resistive clothes pins with each hand one time by taking off dowel rods, placing on cones then placing back onto dowel rods. Pt demonstrated decreased strength with L UE. Medium resistance therapy sponge completed, 20 checker and packer, 20 internal rotation presses, 20 UE press downs to incorporate entire arm. After therapy, pt sitting in recliner with call light/phone in reach. All needs met in room. OT Short Term Goals Short Term Goals Time Frame: May 31, 2021 Eatin Oral hygiene: 5 Toileting hygiene: 4 Shower/bathe self: 3 Upper body dressin Lower body dressin Putting on/taking off footwear: 3 OT Script Girl Goals Shelter Goals Time Frame: Jun 10, 2021 Eating (QC): 6 Oral Hygiene (QC): 6 Toileting Hygiene (QC): 6 Shower/Bathe Self (QC): 5 Upper Body Dressing (QC): 5 Lower Body Dressing (QC): 5 On/Off Footwear (QC): 5 1=Demonstrate adherence to instructed precautions during ADL tasks. 2=Patient will verbalize/demonstrate understanding of assistive devices/modifications for ADL. 3=Patient will improve strength/tolerance for activity to enable patient to perform ADL's. OT Education/Plan Problem List/Assessment Assessment: Decreased UE Strength, Impaired Self-Care Skills Discharge Recommendations Plan/Recommendations: Continue POC Treatment Plan/Plan of Care Patient would benefit from OT for education, treatment and training to promote independence in ADL's, mobility, safety and/or upper extremity function for ADL's. Plan of Care: ADL Retraining, Functional Mobility, Group Exercise/Act as Ind, UE Funct Exercise/Act Treatment Duration: Jun 10, 2021 Frequency: At least 5 of 7 days/Wk (IRF) Estimated Hrs Per Day: 1.5 hours per day (60-90 min/day) Rehab Potential: Good Time/GCodes Start Time: 10:00 Stop Time: 11:30 Total Time Billed (hr/min): 90 Billed Treatment Time 1 visit-ADL 2 (30 min), FA 1 (15 min) EX 3 (45 min) BRANDON MCCLAIN May 27, 2021 11:33
--- NOTE | 2021-05-27 13:58 | Physical Therapy Daily Note ---
PT Daily Note-Current Subjective Pt sitting upright in chair upon arrival. Pt states she had some pain this morning but does not have any this afternoon due to pain medication taken. Pt agrees to PT. Mental Status Patient Orientation: Person, Place, Time, Situation Attachments: IV Transfers SCALE: Activities may be completed with or without assistive devices. 4-Wdixwmnfvt-zbkszec completes the activity by him/herself with no assistance from a helper. 5-Set-up or Clean-up Assistance-helper sets up or cleans up; patient completes activity. [place] assists only prior to or following the activity. 4-Supervision or Touching Assistance-helper provides verbal cues and/or touching/steadying and/or contact guard assistance as patient completes activity. Assistance may be provided throughout the activity or intermittently. 3-Partial/Moderate Assistance-helper does LESS THAN HALF the effort. [place] lifts, holds or supports trunk or limbs, but provides less than half the effort. 2-Substantial/Maximal Assistance-helper does MORE THAN HALF the effort. [place] lifts or holds trunk or limbs and provides more than half the effort. 7-Inzvambat-mvdbap does ALL the effort. Patient does none of the effort to complete the activity. Or, the assistance of 2 or more helpers is required for the patient to complete the activity. If activity was not attempted, code reason: 7-Patient Refused. 9-Not Applicable-not attempted and the patient did not perform the activity before the current illness, exacerbation or injury. 10-Not Attempted due to Environmental Limitations-(lack of equipment, weather restraints, etc.). 88-Not Attempted due to Medical Conditions or Safety Concerns. Sit to Stand (QC): 5 Toilet Transfer (QC): 5 Weight Bearing Right Lower Extremity: Right Full Weight Bearing Left Lower Extremity: Left Weight Bearing/Tolerated Gait Training Does the Patient Walk?: Yes Distance: 150' Walk 10 feet (QC): 5 Walk 50 ft with 2 Turns(QC): 5 Walk 150 ft (QC): 5 Gait Persons Needed: 1 Gait Assistive Device: FWW Wheelchair Training Does the Pt Use a Wheelchair?: No Exercises NuStep Minutes: 18 NuStep Workload: 4 Treatments Pt TF from sitting to standing to amb. to BR. Pt amb. to gym and begins NuStep. Pt amb. back to room to rest in recliner. All needs met. Call light in hand. Assessment Current Status: Good Progress Pt does not need as many rest breaks while walking or doing EX. PT Shelter Goals Shelter Goals PT Adjunct Trainer Goals Time Frame: June 21, 2021 Roll Left & Right (QC): 6 Sit to Lying (QC): 6 Lying-Sitting on Side/Bed(QC): 6 Sit to Stand (QC): 6 Chair/Unt-tl-[place] Xfer(QC): 6 Toilet Transfer (QC): 6 Car Transfer (QC): 6 Does the Patient Walk: Yes Walk 10 feet (QC): 6 Walk 50ft with 2 Turns (QC): 6 Walk 150 ft (QC): 6 Walking 10ft on Uneven Surface: 6 1 Step (curb) (QC): 6 4 Steps (QC): 6 12 Steps (QC): 6 Picking up an Object (QC): 6 Wheel 50 feet with 2 turns (QC: 9 Wheel 150 feet: 9 PT Plan Problem List Problem List: Activity Tolerance Treatment/Plan Treatment Plan: Continue Plan of Care Treatment Plan: Bed Mobility, Concurrent Therapy, Education, Functional Activity Marco Antonio, Functional Strength, Group Therapy, Gait, Safety, Therapeutic Exercise, Transfers Treatment Duration: June 21, 2021 Frequency: At least 5 of 7 days/Wk (IRF) Estimated Hrs Per Day: 1.5 hours per day Patient and/or Family Agrees t: Yes Safety Risks/Education Teaching Recipient: Patient Teaching Methods: Discussion Response to Teaching: Verbalize Understanding Time/GCodes Time In: 1300 Time Out: 1330 Total Billed Treatment Time: 30 Total Billed Treatment 1, EX (20 m) FA (10 m) JOAN PLASENCIA MACHINE WHITENER May 27, 2021 13:58
[2021-05-27] MEDS: ACETAMINOPHEN 325 MG TABLET PO PRN (14:56)
[2021-05-27 20:10] VITALS: BP 146/81
--- NOTE | 2021-05-28 06:05 | PM&R Progress Note ---
Subjective HPI/CC On Admission Date Seen by Provider: May 28, 2021 Time Seen by Provider: 09:30 Subjective/Events-last exam 05/28/2021: Patient doing really well No narcotics are really being used anymore Tylenol and baclofen maintained pain control Sugars reviewed 05/27/2021: Patient doing really well Pain is much improved Only using Tylenol and baclofen no narcotics used Checked meds labs 05/26/2021: Patient dramatically improved No pain is reported currently Moving around well Checked meds and labs 05/25/2021: Patient denies any new issues Blood sugars are good Status post UTI treatment Pain is well controlled Decreasing pain pills 05/24/2021: Patient denies any new issues Working with therapy a lot better Pain is controlled UTI was treated with fosfomycin x1 dose at the bedside 05/23/2021: Patient reports doing better Using less pain meds UTI will be treated with fosfomycin 1 dose Blood sugars improved Bowels are moving 05/22/2021: Pain is improving but requiring a lot of pain medication Urine culture pending No other major concerns Blood sugars improved and will hold insulin for lower sugars 05/21/2021: Pt is doing a lot better JENNA hose and LUCY wraps will be given for lower extremity edema Will discontinue Statin due to myositis Will bring in her Repatha injection home dosing to take that UA will be ordered for an in and out specimen since her urine seems to be thick and malodorous Overall tolerating therapy Review of Systems General: Fatigue, Malaise Objective Exam Vital Signs Vital Signs Date Time Temp Pulse Resp B/P (MAP) Pulse Ox O2 Delivery O2 Flow Rate FiO2 05/28/21 20:00 Room Air 05/28/21 20:00 36.5 76 18 127/77 (94) 95 Capillary Refill : General Appearance: No Apparent Distress, WD/WN, Chronically ill, Obese HEENT: PERRL/EOMI, Normal ENT Inspection, Pharynx Normal Neck: Full Range of Motion, Normal Inspection, Non Tender, Supple, Carotid Bruit Respiratory: Chest Non Tender, Lungs Clear, Normal Breath Sounds, No Accessory Muscle Use, No Respiratory Distress Cardiovascular: Regular Rate, Rhythm, No Edema, No Gallop, No JVD, No Murmur, Normal Peripheral Pulses Gastrointestinal: Normal Bowel Sounds, No Organomegaly, No Pulsatile Mass, Non Tender, Soft Back: Normal Inspection, No CVA Tenderness, No Vertebral Tenderness Extremity: Normal Capillary Refill, Normal Inspection, Normal Range of Motion (Except left leg), Non Tender, No Calf Tenderness, No Pedal Edema Neurologic/Psychiatric: Alert, Oriented x3, Normal Mood/Affect, felt cementer II-XII Norm as Tested, Abnormal Gait, Depressed Affect, Motor Weakness (Left-sided weakness, generalized weakness) Skin: Normal Color, Warm/Dry Lymphatic: No Adenopathy Results/Procedures Lab Patient resulted labs reviewed. FIM Transfers Therapy Code Descriptions/Definitions Functional [place] Measure: 0=Not Assessed/NA 4=Minimal Assistance 1=Total Assistance 5=Supervision or Setup 2=Maximal Assistance 6=Modified [place] 3=Moderate Assistance 7=Complete IndependenceSCALE: Activities may be completed with or without assistive devices. 7-Yqmcdppqmb-dtokcqv completes the activity by him/herself with no assistance from a helper. 5-Set-up or Clean-up Assistance-helper sets up or cleans up; patient completes activity. [place] assists only prior to or following the activity. 4-Supervision or Touching Assistance-helper provides verbal cues and/or touching/steadying and/or contact guard assistance as patient completes activity. Assistance may be provided throughout the activity or intermittently. 3-Partial/Moderate Assistance-helper does LESS THAN HALF the effort. [place] lifts, holds or supports trunk or limbs, but provides less than half the effort. 2-Substantial/Maximal Assistance-helper does MORE THAN HALF the effort. [place] lifts or holds trunk or limbs and provides more than half the effort. 7-Sbhtefgit-nfpcop does ALL the effort. Patient does none of the effort to complete the activity. Or, the assistance of 2 or more helpers is required for the patient to complete the activity. If activity was not attempted, code reason: 7-Patient Refused. 9-Not Applicable-not attempted and the patient did not perform the activity before the current illness, exacerbation or injury. 10-Not Attempted due to Environmental Limitations-(lack of equipment, weather restraints, etc.). 88-Not Attempted due to Medical Conditions or Safety Concerns. Roll Left to Right (QC): 6 Sit to Lying (QC): 6 Sit to Stand (QC): 5 Chair/Nnh-on-Zphqf Xfer(QC): 4 Car Transfer (QC): 3 Gait Training Does the Patient Walk?: Yes Distance: 150' Walk 10 feet (QC): 5 Walk 50 ft with 2 Turns(QC): 5 Walk 150 ft (QC): 5 Walking 10ft/uneven surface-QC: 3 Gait Persons Needed: 1 Gait Assistive Device: FWW Wheelchair Training Does the Pt Use a Wheelchair?: No Wheel 50 ft with 2 turns (QC): 4 Wheel 150 ft (QC): 9 Type of Wheelchair: Manual Stair Training #of Steps: 1 1 Step (curb) (QC): 3 4 Steps (QC): 88 12 Steps (QC): 88 Balance Picking up an Object (QC): 88 ADL-Treatment Eating (QC): 6 (IND per pt report.) Oral Hygiene (QC): 6 Shower/Bathe Self (QC): 5 (set up) Upper Body Dressing (QC): 5 Lower Body Dressing (QC): 5 On/Off Footwear (QC): 2 Toileting Hygiene (QC): 6 Toilet Transfer (QC): 6 Assessment/Plan Assessment and Plan Assess & Plan/Chief Complaint Assessment: Left hip fracture status post repair postop day #11 DM on insulin Previous stroke with left-sided weakness Loop recorder in place Former smoker cessation 2 years ago Hyperlipidemia Hypertension CAD previous stent Postop acute blood loss anemia Great toe amputation Easily tearful since stroke UTI with resistance status post fosfomycin 05/23/2021 1 dose Plan: Aggressive rehab Supportive care Monitor blood sugar Pain control 05/21/2021: Supportive care Hold rapid acting insulin for sugar less than 130 Await urine culture 05/22/2021: Await urine culture Supportive care 05/23/2021: Fosfomycin for UTI Supportive care 05/24/2021: Supportive care Pain control 05/25/2021: Supportive care Decrease pain meds 05/26/2021: Continue pain control Blood sugars good 05/27/21: Supportive care Monitor closely 05/28/2021: Supportive care Monitor closely (1) Fracture, intertrochanteric, left femur Status: Acute (2) History of stroke Status: Chronic (3) HTN (hypertension) Status: Chronic (4) CAD (coronary artery disease) Status: Chronic (5) Diabetes Status: Chronic (6) Mixed hyperlipidemia (7) Presence of stent in coronary artery MIYA CASTILLO DO May 28, 2021 06:05
[2021-05-28] MEDS: ASCORBIC ACID (VIT C) 500 MG TABLET PO SCH (07:02)
[2021-05-28] MEDS: MULTIVIT W/MINERALS TAB (THERAGRAN M) PO SCH (07:02)
[2021-05-28] MEDS: inSUlin ASPART (NovoLOG) 1 UNIT/0.01 ML (CHARGE PER UNIT) SQ SCH ×3 (07:03→17:43)
[2021-05-28] MEDS: CATHETER FLUSH 10 ML SYR IVP SCH ×3 (07:03→19:40)
[2021-05-28] MEDS: inSUlin ASPART (NovoLOG) 1 UNIT/0.01 ML (CHARGE PER UNIT) SC SCH ×4 (07:03→22:00)
[2021-05-28 08:00] VITALS: BP 122/58
[2021-05-28] MEDS: ASPIRIN E.C. 81 MG (ECOTRIN) TAB PO SCH ×2 (08:16→17:41)
[2021-05-28] MEDS: LACTOBACILLUS ACIDOPHILUS (PROBIOTIC) CAPSULE PO SCH ×3 (08:16→17:41)
[2021-05-28] MEDS: PREGABALIN 100 MG (LYRICA) CAPSULE PO SCH ×2 (08:16→20:40)
[2021-05-28] MEDS: BACLOFEN 10 MG (LIORESAL) TAB PO PRN ×2 (08:16→20:40)
[2021-05-28] MEDS: PANTOPRAZOLE 40 MG (PROTONIX) TAB PO SCH (08:16)
[2021-05-28] MEDS: ACETAMINOPHEN 500 MG TAB (TYLENOL) PO SCH ×2 (08:16→20:41)
[2021-05-28] MEDS: VITAMIN D3 125 MCG (5,000 UNITS) CAPSULE PO SCH (08:16)
[2021-05-28] MEDS: polyethylene glycoL POWDER 17 GM (MIRALAX) PACK PO SCH ×2 (08:18→19:38)
[2021-05-28] MEDS: DOCUSATE SODIUM 100 MG (COLACE) CAP PO SCH ×3 (08:18→21:59)
[2021-05-28] MEDS: SENNA W/DOCUSATE (SENOKOT S) TABLET PO SCH ×2 (08:19→19:39)
--- NOTE | 2021-05-28 09:02 | Physical Therapy Daily Note ---
PT Daily Note-Current Subjective Pt. in recliner, agrees to Rx, admits she is a little skittish about stairs but agrees to try them. Not sure when she will DC Pain Location: No Pain Reported Mental Status Patient Orientation: Normal For Age Transfers SCALE: Activities may be completed with or without assistive devices. 6-Lrxpzmwezr-wvcjutx completes the activity by him/herself with no assistance from a helper. 5-Set-up or Clean-up Assistance-helper sets up or cleans up; patient completes activity. [place] assists only prior to or following the activity. 4-Supervision or Touching Assistance-helper provides verbal cues and/or touching/steadying and/or contact guard assistance as patient completes activity. Assistance may be provided throughout the activity or intermittently. 3-Partial/Moderate Assistance-helper does LESS THAN HALF the effort. [place] li fts, holds or supports trunk or limbs, but provides less than half the effort. 2-Substantial/Maximal Assistance-helper does MORE THAN HALF the effort. [place] lifts or holds trunk or limbs and provides more than half the effort. 0-Hlqzlmatk-hpkbve does ALL the effort. Patient does none of the effort to complete the activity. Or, the assistance of 2 or more helpers is required for the patient to complete the activity. If activity was not attempted, code reason: 7-Patient Refused. 9-Not Applicable-not attempted and the patient did not perform the activity before the current illness, exacerbation or injury. 10-Not Attempted due to Environmental Limitations-(lack of equipment, weather restraints, etc.). 88-Not Attempted due to Medical Conditions or Safety Concerns. Roll Left & Right (QC): 6 Sit to Lying (QC): 4 Lying to Sitting/Side of Bed(Q: 4 Sit to Stand (QC): 6 Chair/Nog-fr-Kzfbc Xfer(QC): 6 Car Transfer (QC): 4 pt. needs some assist for car TRF aw well as in out bed with LEs Weight Bearing Right Lower Extremity: Right Full Weight Bearing Left Lower Extremity: Left Weight Bearing/Tolerated Gait Training Does the Patient Walk?: Yes Walk 10 feet (QC): 4 Walk 50 ft with 2 Turns(QC): 4 Walk 150 ft (QC): 4 Walking 10ft/uneven surface-QC: 4 Gait Persons Needed: 1 Gait Assistive Device: Walker 4 Wheeled trial of pts 4 WW from home as she hopes to use this at home . step through gait with some hesitance to wt bear on affected limb Stair Training Stair Training: Handrails/: 2 handrails #of Steps: 4 1 Step (curb) (QC): 4 4 Steps (QC): 4 12 Steps (QC): 88 Stairs: Pattern: Step to pt. very anxious and needed min to CGA and instruction for all sequence and wt bearing for every step and was fatigued after 4 steps Balance Picking up an Object (QC): 5 Special Test Comments school clerk was used for retireving object from floor, this was set up as CLEANER [employer] DYER retrieved school clerk for her Exercises Supine Ex: Quad Set, Short Arc Quads Supine Reps: 12 Seated Therapy Exercises: Ankle pumps, Sit to stand, Long arc quads Seated Reps: 12 Treatments Max assist to maritza JENNA hose before Tx. Pt. required min assist to don shoes Assessment Current Status: Good Progress steady progress in all areas PT Care Home Goals Multiple Punch Press Operator Goals PT Care Home Goals Time Frame: June 21, 2021 Roll Left & Right (QC): 6 Sit to Lying (QC): 6 Lying-Sitting on Side/Bed(QC): 6 Sit to Stand (QC): 6 Chair/Nqs-lk-Xihma Xfer(QC): 6 Toilet Transfer (QC): 6 Car Transfer (QC): 6 Does the Patient Walk: Yes Walk 10 feet (QC): 6 Walk 50ft with 2 Turns (QC): 6 Walk 150 ft (QC): 6 Walking 10ft on Uneven Surface: 6 1 Step (curb) (QC): 6 4 Steps (QC): 6 12 Steps (QC): 6 Picking up an Object (QC): 6 Wheel 50 feet with 2 turns (QC: 9 Wheel 150 feet: 9 PT Plan Treatment/Plan Treatment Plan: Continue Plan of Care Treatment Plan: Bed Mobility, Concurrent Therapy, Education, Functional Activity Marco Antonio, Functional Strength, Group Therapy, Gait, Safety, Therapeutic Exercise, Transfers Treatment Duration: June 21, 2021 Frequency: At least 5 of 7 days/Wk (IRF) Estimated Hrs Per Day: 1.5 hours per day Patient and/or Family Agrees t: Yes Safety Risks/Education Patient Education: Gait Training, Transfer Techniques, Steps, Correct Positioning, Disease Process, Safety Issues Teaching Recipient: Patient Teaching Methods: Demonstration, Discussion Response to Teaching: Verbalize Understanding, Return Demonstration, Reinforcement Needed Time/GCodes Time In: 800 Time Out: 900 Total Billed Treatment Time: 60 Total Billed Treatment 1,GT20m,EX10m,FA30m ARAMIS LARA [employer]ER [employer] D[employer]ER May 28, 2021 09:02
--- NOTE | 2021-05-28 09:54 | Occupational Ther Daily Note ---
OT Current Status-Daily Note Subjective Pt alert, sitting in recliner when OT entered. Pt agreed to complete shower. No c/o pain reported at this time. Mental Status/Objective Patient Orientation: Person, Place, Time, Situation ADL-Treatment Pt sit-stand from recliner to FWW with CGA. Pt ambulated to bathroom using FWW and transferred to shower bench with CGA. While still in standing pt doffed brief. Pt doffed hospital gown while seated at shower bench. Required assist to doff R footwear. Pt performed shower and was able to cleanse/dry UB, chest, abdomen, upper/lower legs, eleanor area, and buttocks with supervision. Pt required shower bench, long handlded sponge, grab bars, and hand held shower to complete shower safely. Post shower, pt transferred to chair. After set up, pt donned UB dressing. After set up, pt able to thread BLE through LB dressing. Pt required assist to don R footwear. Pt sit-stand from chair to FWW to hike LB dressing with CGA. Pt ambulated to sink using FWW. Pt completed basic grooming task of combing hair and oral hygiene while standing at sink with supervision. Therapy Code Descriptions/Definitions Functional [place] Measure: 0=Not Assessed/NA 4=Minimal Assistance 1=Total Assistance 5=Supervision or Setup 2=Maximal Assistance 6=Modified [place] 3=Moderate Assistance 7=Complete IndependenceSCALE: Activities may be completed with or without assistive devices. 6-Xmeupkzdpo-ivgwvof completes the activity by him/herself with no assistance from a helper. 5-Set-up or Clean-up Assistance-helper sets up or cleans up; patient completes activity. [place] assists only prior to or following the activity. 4-Supervision or Touching Assistance-helper provides verbal cues and/or touc eli/steadying and/or contact guard assistance as patient completes activity. Assistance may be provided throughout the activity or intermittently. 3-Partial/Moderate Assistance-helper does LESS THAN HALF the effort. [place] lifts, holds or supports trunk or limbs, but provides less than half the effort. 2-Substantial/Maximal Assistance-helper does MORE THAN HALF the effort. [place] lifts or holds trunk or limbs and provides more than half the effort. 6-Fsgadsqvd-ubaaub does ALL the effort. Patient does none of the effort to complete the activity. Or, the assistance of 2 or more helpers is required for the patient to complete the activity. If activity was not attempted, code reason: 7-Patient Refused. 9-Not Applicable-not attempted and the patient did not perform the activity before the current illness, exacerbation or injury. 10-Not Attempted due to Environmental Limitations-(lack of equipment, weather restraints, etc.). 88-Not Attempted due to Medical Conditions or Safety Concerns. Bathing Location: L Arm, R Arm, L Upper Leg, R Upper Leg, L Lower Leg (including foot), R Lower Leg (including foot), Chest, Abdomen, Buttocks, Perineal Area Shower/Bathe Self (QC): 4 (Supervision for safety) Upper Body Dressing (QC): 5 Lower Body Dressing (QC): 4 (CGA when hiking LB dressing) On/Off Footwear: 3 Education OT Patient Education: Modified ADL techniques, Progress toward Goal/Update tx plan, Purpose of tx/functional activities, Safety issues, Transfer techniques Teaching Recipient: Patient Teaching Methods: Demonstration, Discussion Response to Teaching: Verbalize Understanding, Return Demonstration OT Short Term Goals Short Term Goals Time Frame: May 31, 2021 Eatin Oral hygiene: 5 Toileting hygiene: 4 Shower/bathe self: 3 Upper body dressin Lower body dressin Putting on/taking off footwear: 3 OT Usp Goals Usp Goals Time Frame: Jun 10, 2021 Eating (QC): 6 Oral Hygiene (QC): 6 Toileting Hygiene (QC): 6 Shower/Bathe Self (QC): 5 Upper Body Dressing (QC): 5 Lower Body Dressing (QC): 5 On/Off Footwear (QC): 5 1=Demonstrate adherence to instructed precautions during ADL tasks. 2=Patient will verbalize/demonstrate understanding of assistive device s/modifications for ADL. 3=Patient will improve strength/tolerance for activity to enable patient to perform ADL's. OT Education/Plan Problem List/Assessment Assessment: Decreased Activ Tolerance, Decreased UE Strength, Impaired I ADL's, Impaired Self-Care Skills Discharge Recommendations Plan/Recommendations: Continue POC Treatment Plan/Plan of Care Patient would benefit from OT for education, treatment and training to promote independence in ADL's, mobility, safety and/or upper extremity function for ADL's. Plan of Care: ADL Retraining, Functional Mobility, Group Exercise/Act as Ind, UE Funct Exercise/Act Treatment Duration: Jun 10, 2021 Frequency: At least 5 of 7 days/Wk (IRF) Estimated Hrs Per Day: 1.5 hours per day (60-90 min/day) Rehab Potential: Good Time/GCodes Start Time: 09:00 Stop Time: 10:00 Total Time Billed (hr/min): 60 Billed Treatment Time 1 visit- ADL 4 (60 mins) OLAF ANDERSON May 28, 2021 09:54
[2021-05-28] MEDS: ENOXAPARIN 40 MG/0.4 ML (LOVENOX) SYR SC SCH (10:55)
--- NOTE | 2021-05-28 11:52 | Occupational Ther Daily Note ---
OT Current Status-Daily Note Subjective Pt alert, sitting in recliner when OT entered. Pt agreed to therapy. No c/o pain reported. Mental Status/Objective Patient Orientation: Person, Place, Time, Situation ADL-Treatment Therapy Code Descriptions/Definitions Functional [place] Measure: 0=Not Assessed/NA 4=Minimal Assistance 1=Total Assistance 5=Supervision or Setup 2=Maximal Assistance 6=Modified [place] 3=Moderate Assistance 7=Complete IndependenceSCALE: Activities may be completed with or without assistive devices. 1-Wjqjjbtiax-zcjkyrm completes the activity by him/herself with no assistance from a helper. 5-Set-up or Clean-up Assistance-helper sets up or cleans up; patient completes activity. [place] assists only prior to or following the activity. 4-Supervision or Touching Assistance-helper provides verbal cues and/or touching/steadying and/or contact guard assistance as patient completes activity. Assistance may be provided throughout the activity or intermittently. 3-Partial/Moderate Assistance-helper does LESS THAN HALF the effort. [place] lifts, holds or supports trunk or limbs, but provides less than half the effort. 2-Substantial/Maximal Assistance-helper does MORE THAN HALF the effort. [place] lifts or holds trunk or limbs and provides more than half the effort. 8-Dnckdglsn-ikvkqn does ALL the effort. Patient does none of the effort to complete the activity. Or, the assistance of 2 or more helpers is required for the patient to complete the activity. If activity was not attempted, code reason: 7-Patient Refused. 9-Not Applicable-not attempted and the patient did not perform the activity before the current illness, exacerbation or injury. 10-Not Attempted due to Environmental Limitations-(lack of equipment, weather restraints, etc.). 88-Not Attempted due to Medical Conditions or Safety Concerns. Other Treatment Skilled instruction required of BUE green theraband exercises. Pt completed x2 sets of 10 reps of BUE green theraband exercises in all planes to increase BUE strength for improved independence with ADLs. Pt tolerated exercises well and demonstrated good technique. Due to decreased activity tolerance pt required resting break in between set. After session, pt sitting in recliner. Call light in reach and all needs met. Education OT Patient Education: Correct positioning, Energy conservation, Exercise program, Home exercise program Teaching Recipient: Patient Teaching Methods: Demonstration, Handout, Discussion Response to Teaching: Verbalize Understanding, Return Demonstration OT Short Term Goals Short Term Goals Time Frame: May 31, 2021 Eatin Oral hygiene: 5 Toileting hygiene: 4 Shower/bathe self: 3 Upper body dressin Lower body dressin Putting on/taking off footwear: 3 OT It Field Technician Goals Custodial Goals Time Frame: Jun 10, 2021 Eating (QC): 6 Oral Hygiene (QC): 6 Toileting Hygiene (QC): 6 Shower/Bathe Self (QC): 5 Upper Body Dressing (QC): 5 Lower Body Dressing (QC): 5 On/Off Footwear (QC): 5 1=Demonstrate adherence to instructed precautions during ADL tasks. 2=Patient will verbalize/demonstrate understanding of assistive device s/modifications for ADL. 3=Patient will improve strength/tolerance for activity to enable patient to perform ADL's. OT Education/Plan Problem List/Assessment Assessment: Decreased Activ Tolerance, Decreased UE Strength, Impaired I ADL's, Impaired Self-Care Skills Discharge Recommendations Plan/Recommendations: Continue POC Treatment Plan/Plan of Care Patient would benefit from OT for education, treatment and training to promote independence in ADL's, mobility, safety and/or upper extremity function for ADL's. Plan of Care: ADL Retraining, Functional Mobility, Group Exercise/Act as Ind, UE Funct Exercise/Act Treatment Duration: Jun 10, 2021 Frequency: At least 5 of 7 days/Wk (IRF) Estimated Hrs Per Day: 1.5 hours per day (60-90 min/day) Rehab Potential: Good Time/GCodes Start Time: 11:00 Stop Time: 11:30 Total Time Billed (hr/min): 30 Billed Treatment Time 1 visit- EX 2 (30 mins) OLAF ANDERSON May 28, 2021 11:51
--- NOTE | 2021-05-28 12:04 | Physical Therapy Daily Note ---
PT Daily Note-Current Subjective Pt sitting upright in chair upon arrival. Pt agrees to PT. Pt states she does not have any pain but her affected hip is a bit sore and she is a little tired from other Tx. Mental Status Patient Orientation: Person, Place, Time, Situation, Normal For Age Attachments: IV (no IV standard attached) Transfers SCALE: Activities may be completed with or without assistive devices. 7-Maiiaryyzy-uzqrrrx completes the activity by him/herself with no assistance from a helper. 5-Set-up or Clean-up Assistance-helper sets up or cleans up; patient completes activity. [place] assists only prior to or following the activity. 4-Supervision or Touching Assistance-helper provides verbal cues and/or touching/steadying and/or contact guard assistance as patient completes activity. Assistance may be provided throughout the activity or intermittently. 3-Partial/Moderate Assistance-helper does LESS THAN HALF the effort. [place] lifts, holds or supports trunk or limbs, but provides less than half the effort. 2-Substantial/Maximal Assistance-helper does MORE THAN HALF the effort. [place] lifts or holds trunk or limbs and provides more than half the effort. 9-Rjebbiwdb-yeogcy does ALL the effort. Patient does none of the effort to complete the activity. Or, the assistance of 2 or more helpers is required for the patient to complete the activity. If activity was not attempted, code reason: 7-Patient Refused. 9-Not Applicable-not attempted and the patient did not perform the activity before the current illness, exacerbation or injury. 10-Not Attempted due to Environmental Limitations-(lack of equipment, weather restraints, etc.). 88-Not Attempted due to Medical Conditions or Safety Concerns. all TRFs Mod I Weight Bearing Right Lower Extremity: Right Full Weight Bearing Left Lower Extremity: Left Weight Bearing/Tolerated Gait Training Does the Patient Walk?: Yes Distance: 150' x2 Walk 10 feet (QC): 6 Walk 50 ft with 2 Turns(QC): 6 Walk 150 ft (QC): 6 Gait Persons Needed: 1 Gait Assistive Device: Walker 4 Wheeled Wheelchair Training Does the Pt Use a Wheelchair?: No Exercises NuStep Minutes: 20 NuStep Workload: 4 Treatments Pt TF from sitting in chair to standing at 4 wheel walker. Pt amb. to gym and completes NuStep. Pt amb. back to room to sit upright in chair. All needs met. Call light in hand. Assessment Current Status: Good Progress Pt does not need as many rest breaks when amb. or performing EX. PT Laborer Adjustable Steel Joist Goals Laborer Adjustable Steel [place] Goals PT Laborer Adjustable Steel [place] Goals Time Frame: June 21, 2021 Roll Left & Right (QC): 6 Sit to Lying (QC): 6 Lying-Sitting on Side/Bed(QC): 6 Sit to Stand (QC): 6 Chair/Pyd-nt-Ingoy Xfer(QC): 6 Toilet Transfer (QC): 6 Car Transfer (QC): 6 Does the Patient Walk: Yes Walk 10 feet (QC): 6 Walk 50ft with 2 Turns (QC): 6 Walk 150 ft (QC): 6 Walking 10ft on Uneven Surface: 6 1 Step (curb) (QC): 6 4 Steps (QC): 6 12 Steps (QC): 6 Picking up an Object (QC): 6 Wheel 50 feet with 2 turns (QC: 9 Wheel 150 feet: 9 PT Plan Problem List Problem List: Activity Tolerance, Gait Treatment/Plan Treatment Plan: Continue Plan of Care Treatment Plan: Bed Mobility, Concurrent Therapy, Education, Functional Activity Marco Antonio, Functional Strength, Group Therapy, Gait, Safety, Therapeutic Exercise, Transfers Treatment Duration: June 21, 2021 Frequency: At least 5 of 7 days/Wk (IRF) Estimated Hrs Per Day: 1.5 hours per day Patient and/or Family Agrees t: Yes Safety Risks/Education Patient Education: Safety Issues Teaching Recipient: Patient Teaching Methods: Demonstration, Discussion Response to Teaching: Verbalize Understanding, Return Demonstration Time/GCodes Time In: 1120 Time Out: 1155 Total Billed Treatment Time: 35 Total Billed Treatment 1, EX (20 min) GT (15 min) ARAMIS LARA DURALUMIN METALWORKER May 28, 2021 12:04
[2021-05-28] MEDS: ACETAMINOPHEN 325 MG TABLET PO PRN (16:46)
[2021-05-28 20:00] VITALS: BP 127/77
--- NOTE | 2021-05-29 06:38 | PM&R Progress Note ---
Subjective HPI/CC On Admission Date Seen by Provider: May 29, 2021 Time Seen by Provider: 10:30 Subjective/Events-last exam 05/29/2021: Patient doing really well Discharge plan for tomorrow 05/28/2021: Patient doing really well No narcotics are really being used anymore Tylenol and baclofen maintained pain control Sugars reviewed 05/27/2021: Patient doing really well Pain is much improved Only using Tylenol and baclofen no narcotics used Checked meds labs 05/26/2021: Patient dramatically improved No pain is reported currently Moving around well Checked meds and labs 05/25/2021: Patient denies any new issues Blood sugars are good Status post UTI treatment Pain is well controlled Decreasing pain pills 05/24/2021: Patient denies any new issues Working with therapy a lot better Pain is controlled UTI was treated with fosfomycin x1 dose at the bedside 05/23/2021: Patient reports doing better Using less pain meds UTI will be treated with fosfomycin 1 dose Blood sugars improved Bowels are moving 05/22/2021: Pain is improving but requiring a lot of pain medication Urine culture pending No other major concerns Blood sugars improved and will hold insulin for lower sugars 05/21/2021: Pt is doing a lot better JENNA hose and LUCY wraps will be given for lower extremity edema Will discontinue Statin due to myositis Will bring in her Repatha injection home dosing to take that UA will be ordered for an in and out specimen since her urine seems to be thick and malodorous Overall tolerating therapy Review of Systems General: Fatigue, Malaise Musculoskeletal: leg pain Objective Exam Vital Signs Vital Signs Date Time Temp Pulse Resp B/P (MAP) Pulse Ox O2 Delivery O2 Flow Rate FiO2 05/29/21 21:25 Room Air 05/29/21 20:19 36.8 66 18 154/84 (107) 96 Capillary Refill : General Appearance: No Apparent Distress, WD/WN, Chronically ill, Obese HEENT: PERRL/EOMI, Normal ENT Inspection, Pharynx Normal Neck: Full Range of Motion, Normal Inspection, Non Tender, Supple, Carotid Bruit Respiratory: Chest Non Tender, Lungs Clear, Normal Breath Sounds, No Accessory Muscle Use, No Respiratory Distress Cardiovascular: Regular Rate, Rhythm, No Edema, No Gallop, No JVD, No Murmur, Normal Peripheral Pulses Gastrointestinal: Normal Bowel Sounds, No Organomegaly, No Pulsatile Mass, Non Tender, Soft Back: Normal Inspection, No CVA Tenderness, No Vertebral Tenderness Extremity: Normal Capillary Refill, Normal Inspection, Normal Range of Motion (Except left leg), Non Tender, No Calf Tenderness, No Pedal Edema Neurologic/Psychiatric: Alert, Oriented x3, Normal Mood/Affect, claim technician II-XII Norm as Tested, Abnormal Gait, Depressed Affect, Motor Weakness (Left-sided weakness, generalized weakness) Skin: Normal Color, Warm/Dry Lymphatic: No Adenopathy Results/Procedures Lab Patient resulted labs reviewed. FIM Transfers Therapy Code Descriptions/Definitions Functional [place] Measure: 0=Not Assessed/NA 4=Minimal Assistance 1=Total Assistance 5=Supervision or Setup 2=Maximal Assistance 6=Modified [place] 3=Moderate Assistance 7=Complete IndependenceSCALE: Activities may be completed with or without assistive devices. 0-Cbhqgskzct-bovhupv completes the activity by him/herself with no assistance from a helper. 5-Set-up or Clean-up Assistance-helper sets up or cleans up; patient completes activity. [place] assists only prior to or following the activity. 4-Supervision or Touching Assistance-helper provides verbal cues and/or touching/steadying and/or contact guard assistance as patient completes activity. Assistance may be provided throughout the activity or intermittently. 3-Partial/Moderate Assistance-helper does LESS THAN HALF the effort. [place] lifts, holds or supports trunk or limbs, but provides less than half the effort. 2-Substantial/Maximal Assistance-helper does MORE THAN HALF the effort. [place] lifts or holds trunk or limbs and provides more than half the effort. 3-Quxhptzwn-qnmjej does ALL the effort. Patient does none of the effort to complete the activity. Or, the assistance of 2 or more helpers is required for the patient to complete the activity. If activity was not attempted, code reason: 7-Patient Refused. 9-Not Applicable-not attempted and the patient did not perform the activity before the current illness, exacerbation or injury. 10-Not Attempted due to Environmental Limitations-(lack of equipment, weather restraints, etc.). 88-Not Attempted due to Medical Conditions or Safety Concerns. Roll Left to Right (QC): 6 Sit to Lying (QC): 4 Sit to Stand (QC): 6 Chair/Jsw-rl-Jqudn Xfer(QC): 6 Car Transfer (QC): 4 Gait Training Does the Patient Walk?: Yes Distance: 150' x2 Walk 10 feet (QC): 6 Walk 50 ft with 2 Turns(QC): 6 Walk 150 ft (QC): 6 Walking 10ft/uneven surface-QC: 4 Gait Persons Needed: 1 Gait Assistive Device: Walker 4 Wheeled Wheelchair Training Does the Pt Use a Wheelchair?: No Wheel 50 ft with 2 turns (QC): 4 Wheel 150 ft (QC): 9 Stair Training Stair Training: Handrails/: 2 handrails #of Steps: 4 1 Step (curb) (QC): 4 4 Steps (QC): 4 12 Steps (QC): 88 Stairs: Pattern: Step to Balance Picking up an Object (QC): 5 ADL-Treatment Eating (QC): 6 (IND per pt report.) Oral Hygiene (QC): 6 Bathing Location: L Arm, R Arm, L Upper Leg, R Upper Leg, L Lower Leg (including foot), R Lower Leg (including foot), Chest, Abdomen, Buttocks, Perineal Area Shower/Bathe Self (QC): 4 (Supervision for safety) Upper Body Dressing (QC): 5 Lower Body Dressing (QC): 4 (CGA when hiking LB dressing) On/Off Footwear (QC): 3 Toileting Hygiene (QC): 6 Toilet Transfer (QC): 6 Assessment/Plan Assessment and Plan Assess & Plan/Chief Complaint Assessment: Left hip fracture status post repair postop day #12 DM on insulin Previous stroke with left-sided weakness Loop recorder in place Former smoker cessation 2 years ago Hyperlipidemia Hypertension CAD previous stent Postop acute blood loss anemia Great toe amputation Easily tearful since stroke UTI with resistance status post fosfomycin 05/23/2021 1 dose Plan: Aggressive rehab Supportive care Monitor blood sugar Pain control 05/21/2021: Supportive care Hold rapid acting insulin for sugar less than 130 Await urine culture 05/22/2021: Await urine culture Supportive care 05/23/2021: Fosfomycin for UTI Supportive care 05/24/2021: Supportive care Pain control 05/25/2021: Supportive care Decrease pain meds 05/26/2021: Continue pain control Blood sugars good 05/27/21: Supportive care Monitor closely 05/28/2021: Supportive care Monitor closely 05/29/2021: Supportive care Discharge tomorrow (1) Fracture, intertrochanteric, left femur Status: Acute (2) History of stroke Status: Chronic (3) HTN (hypertension) Status: Chronic (4) CAD (coronary artery disease) Status: Chronic (5) Diabetes Status: Chronic (6) Mixed hyperlipidemia (7) Presence of stent in coronary artery MIYA CASTILLO DO May 29, 2021 06:38
[2021-05-29] MEDS: ASCORBIC ACID (VIT C) 500 MG TABLET PO SCH (07:01)
[2021-05-29] MEDS: MULTIVIT W/MINERALS TAB (THERAGRAN M) PO SCH (07:01)
[2021-05-29] MEDS: inSUlin ASPART (NovoLOG) 1 UNIT/0.01 ML (CHARGE PER UNIT) SQ SCH ×3 (07:02→15:43)
[2021-05-29] MEDS: CATHETER FLUSH 10 ML SYR IVP SCH ×2 (07:02→13:27)
[2021-05-29] MEDS: inSUlin ASPART (NovoLOG) 1 UNIT/0.01 ML (CHARGE PER UNIT) SC SCH ×4 (07:02→21:33)
[2021-05-29 07:33] VITALS: BP 155/65
[2021-05-29] MEDS: ASPIRIN E.C. 81 MG (ECOTRIN) TAB PO SCH ×2 (08:50→17:59)
[2021-05-29] MEDS: VITAMIN D3 125 MCG (5,000 UNITS) CAPSULE PO SCH (08:50)
[2021-05-29] MEDS: PANTOPRAZOLE 40 MG (PROTONIX) TAB PO SCH (08:50)
[2021-05-29] MEDS: ACETAMINOPHEN 500 MG TAB (TYLENOL) PO SCH ×2 (08:50→21:32)
[2021-05-29] MEDS: LACTOBACILLUS ACIDOPHILUS (PROBIOTIC) CAPSULE PO SCH ×3 (08:51→17:59)
[2021-05-29] MEDS: DOCUSATE SODIUM 100 MG (COLACE) CAP PO SCH ×2 (08:51→21:31)
[2021-05-29] MEDS: PREGABALIN 100 MG (LYRICA) CAPSULE PO SCH ×2 (08:51→21:31)
[2021-05-29] MEDS: polyethylene glycoL POWDER 17 GM (MIRALAX) PACK PO SCH ×2 (08:52→21:33)
[2021-05-29] MEDS: SENNA W/DOCUSATE (SENOKOT S) TABLET PO SCH ×2 (08:52→21:33)
[2021-05-29] MEDS: BACLOFEN 10 MG (LIORESAL) TAB PO PRN ×3 (08:55→21:32)
--- NOTE | 2021-05-29 09:58 | Occupational Ther Daily Note ---
OT Current Status-Daily Note Subjective Pt alert, sitting in recliner when BROOKS entered. Pt agreed to therapy. No c/o pain reported. Mental Status/Objective Patient Orientation: Person, Place, Time, Situation ADL-Treatment Pt declined getting dressed for the day, but requested to complete oral hygiene and basic grooming task of combing hair. Pt sit-stand from EOB to four wheeled walker independently. Pt ambulated to bathroom using four wheeled walker. Pt completed oral hygiene and combing of hair independently while standing at bathroom sink. Pt ambulated to closet and reached for several items and opened/closed closet drawers to demonstrate safety and independence once home. Pt demonstrated good safety awareness by locking brakes of walker and keep one hand on walker at all times. After session, pt sitting in recliner. Call light in reach and all needs met. Therapy Code Descriptions/Definitions Functional [place] Measure: 0=Not Assessed/NA 4=Minimal Assistance 1=Total Assistance 5=Supervision or Setup 2=Maximal Assistance 6=Modified [place] 3=Moderate Assistance 7=Complete IndependenceSCALE: Activities may be completed with or without assistive devices. 6-Xlkfsaidbk-fyvwuwt completes the activity by him/herself with no assistance from a helper. 5-Set-up or Clean-up Assistance-helper sets up or cleans up; patient completes activity. [place] assists only prior to or following the activity. 4-Supervision or Touching Assistance-helper provides verbal cues and/or touching/steadying and/or contact guard assistance as patient completes activity. Assistance may be provided throughout the activity or intermittently. 3-Partial/Moderate Assistance-helper does LESS THAN HALF the effort. [place] lifts, holds or supports trunk or limbs, but provides less than half the effort. 2-Substantial/Maximal Assistance-helper does MORE THAN HALF the effort. [place] lifts or holds trunk or limbs and provides more than half the effort. 2-[place]-srrmer does ALL the effort. Patient does none of the effort to complete the activity. Or, the assistance of 2 or more helpers is required for the patient to complete the activity. If activity was not attempted, code reason: 7-Patient Refused. 9-Not Applicable-not attempted and the patient did not perform the activity before the current illness, exacerbation or injury. 10-Not Attempted due to Environmental Limitations-(lack of equipment, weather restraints, etc.). 88-Not Attempted due to Medical Conditions or Safety Concerns. OT Short Term Goals Short Term Goals Time Frame: May 31, 2021 Eatin Oral hygiene: 5 Toileting hygiene: 4 Shower/bathe self: 3 Upper body dressin Lower body dressin Putting on/taking off footwear: 3 OT Pipe Production Worker Goals M[facility] Goals Time Frame: Jun 10, 2021 Eating (QC): 6 (Met per clinical judgemt) Oral Hygiene (QC): 6 (Met) Toileting Hygiene (QC): 6 (Met per clinical judgement) Shower/Bathe Self (QC): 5 (Met) Upper Body Dressing (QC): 5 (Met) Lower Body Dressing (QC): 5 (Met) On/Off Footwear (QC): 5 (Met per clinical judgemt) 1=Demonstrate adherence to instructed precautions during ADL tasks. 2=Patient will verbalize/demonstrate understanding of assistive devices/modifications for ADL. 3=Patient will improve strength/tolerance for activity to enable patient to perform ADL's. OT Education/Plan Discharge Recommendations Plan/Recommendations: Continue POC Treatment Plan/Plan of Care Patient would benefit from OT for education, treatment and training to promote independence in ADL's, mobility, safety and/or upper extremity function for ADL's. Plan of Care: ADL Retraining, Functional Mobility, Group Exercise/Act as Ind, UE Funct Exercise/Act Treatment Duration: Jun 10, 2021 Frequency: At least 5 of 7 days/Wk (IRF) Estimated Hrs Per Day: 1.5 hours per day (60-90 min/day) Rehab Potential: Good Time/GCodes Start Time: 09:30 Stop Time: 10:00 Total Time Billed (hr/min): 30 Billed Treatment Time 1 visit- ADL 2 (30 mins) OLAF ANDERSON May 29, 2021 09:58
[2021-05-29] MEDS: ENOXAPARIN 40 MG/0.4 ML (LOVENOX) SYR SC SCH (10:15)
--- NOTE | 2021-05-29 10:59 | Physical Therapy Daily Note ---
PT Daily Note-Current Subjective Patient was compliant with treatment and had no new complaints Pain Numeric Pain Scale: 1 Location: Left Location Body Site: Hip Pain Description: Ache Mental Status Patient Orientation: Person, Place, Time, Situation Transfers SCALE: Activities may be completed with or without assistive devices. 2-Bcrweicgfh-kjrivyg completes the activity by him/herself with no assistance from a helper. 5-Set-up or Clean-up Assistance-helper sets up or cleans up; patient completes activity. [place] assists only prior to or following the activity. 4-Supervision or Touching Assistance-helper provides verbal cues and/or touching/steadying and/or contact guard assistance as patient completes activity. Assistance may be provided throughout the activity or intermittently. 3-Partial/Moderate Assistance-helper does LESS THAN HALF the effort. [place] lifts, holds or supports trunk or limbs, but provides less than half the effort. 2-Substantial/Maximal Assistance-helper does MORE THAN HALF the effort. [place] lifts or holds trunk or limbs and provides more than half the effort. 2-Gdgcogeic-gwblpk does ALL the effort. Patient does none of the effort to complete the activity. Or, the assistance of 2 or more helpers is required for the patient to complete the activity. If activity was not attempted, code reason: 7-Patient Refused. 9-Not Applicable-not attempted and the patient did not perform the activity before the current illness, exacerbation or injury. 10-Not Attempted due to Environmental Limitations-(lack of equipment, weather restraints, etc.). 88-Not Attempted due to Medical Conditions or Safety Concerns. Roll Left & Right (QC): 6 Sit to Lying (QC): 4 (SBA) Lying to Sitting/Side of Bed(Q: 4 (SBA) Sit to Stand (QC): 4 (SBA) Chair/Mjv-rd-Drwax Xfer(QC): 4 (SBA) Toilet Transfer (QC): 4 (SBA) Car Transfer (QC): 4 (SBA) Weight Bearing Right Lower Extremity: Right Full Weight Bearing Left Lower Extremity: Left Weight Bearing/Tolerated Gait Training Does the Patient Walk?: Yes Distance: 75', 150' Walk 10 feet (QC): 4 (SBA ) Walk 50 ft with 2 Turns(QC): 4 (SBA) Walk 150 ft (QC): 4 (SBA) Walking 10ft/uneven surface-QC: 4 (SBA) Gait Assistive Device: Walker 4 Wheeled Wheelchair Training Does the Pt Use a Wheelchair?: No Type of Wheelchair: N/A Stair Training #of Steps: 4 1 Step (curb) (QC): 4 (CGA) 4 Steps (QC): 4 (CGA) Stairs: Pattern: Step to Balance Picking up an Object (QC): 6 Special Test Comments Tinetti Balance assessment Exercises Seated Therapy Exercises: Long arc quads Seated Reps: 20 Standing: Hamstring curls, 3 way Ex=Flex, Abd, Ext Standing Reps: 20 Treatments Ambulation, transfers, LE strengthening. Assessment Current Status: Good Progress Patient requires SBA for all transfers and is independent with rolling. Patient needs extra time lifting leg on car transfers, and sit to lying transfers. Patient walks well with her Four wheeled walker requiring SBA but her leg tires out after about 150ft. Patient can navigate stairs in a step-to fashion using both rails, and has trouble only using one rail. Patient still presents with balance deficits as see with her Tinetti score. Her hip flexion PROM was 97d. AROM was not assessed due to weakness. Patient was left in chair with call light, tray, and all needs met. PT [facility] Goals Deck Builder Goals PT Deck Builder Goals Time Frame: June 21, 2021 Roll Left & Right (QC): 6 Sit to Lying (QC): 6 Lying-Sitting on Side/Bed(QC): 6 Sit to Stand (QC): 6 Chair/Dgx-gd-Adlnj Xfer(QC): 6 Toilet Transfer (QC): 6 Car Transfer (QC): 6 Does the Patient Walk: Yes Walk 10 feet (QC): 6 Walk 50ft with 2 Turns (QC): 6 Walk 150 ft (QC): 6 Walking 10ft on Uneven Surface: 6 1 Step (curb) (QC): 6 4 Steps (QC): 6 12 Steps (QC): 6 Picking up an Object (QC): 6 Wheel 50 feet with 2 turns (QC: 9 Wheel 150 feet: 9 PT Plan Problem List Problem List: Activity Tolerance, Functional Strength, Safety, Balance, Gait, Transfer, Bed Mobility, ROM Treatment/Plan Treatment Plan: Continue Plan of Care Treatment Plan: Bed Mobility, Concurrent Therapy, Education, Functional Activity Marco Antonio, Functional Strength, Group Therapy, Gait, Safety, Therapeutic Exercise, Transfers Treatment Duration: June 21, 2021 Frequency: At least 5 of 7 days/Wk (IRF) Estimated Hrs Per Day: 1.5 hours per day Patient and/or Family Agrees t: Yes Safety Risks/Education Patient Education: Gait Training, Transfer Techniques, Steps, Correct Positioning, Disease Process, Safety Issues Teaching Recipient: Patient Teaching Methods: Demonstration, Discussion Response to Teaching: Verbalize Understanding Time/GCodes Time In: 1000 Time Out: 1100 Total Billed Treatment Time: 60 Total Billed Treatment 1 visit FA 45min EX 15min DAGMAR GENTILE PT May 29, 2021 10:59
[2021-05-29] MEDS: ACETAMINOPHEN 325 MG TABLET PO PRN (11:34)
--- NOTE | 2021-05-29 11:59 | Occupational Ther Daily Note ---
OT Current Status-Daily Note Subjective Pt alert, sitting in recliner when BROOKS entered. Pt declined walking to therapy at this gym, stated she was experiencing pain. Nrsing notified and meds were given to pt. Mental Status/Objective Patient Orientation: Person, Place, Time, Situation ADL-Treatment Therapy Code Descriptions/Definitions Functional [place] Measure: 0=Not Assessed/NA 4=Minimal Assistance 1=Total Assistance 5=Supervision or Setup 2=Maximal Assistance 6=Modified [place] 3=Moderate Assistance 7=Complete IndependenceSCALE: Activities may be completed with or without assistive devices. 2-Wiudfgucen-enrfzbl completes the activity by him/herself with no assistance from a helper. 5-Set-up or Clean-up Assistance-helper sets up or cleans up; patient completes activity. [place] assists only prior to or following the activity. 4-Supervision or Touching Assistance-helper provides verbal cues and/or touching/steadying and/or contact guard assistance as patient completes activity. Assistance may be provided throughout the activity or intermittently. 3-Partial/Moderate Assistance-helper does LESS THAN HALF the effort. [place] lifts, holds or supports trunk or limbs, but provides less than half the effort. 2-Substantial/Maximal Assistance-helper does MORE THAN HALF the effort. [place] lifts or holds trunk or limbs and provides more than half the effort. 7-Ixioqqmnl-gcwgqc does ALL the effort. Patient does none of the effort to complete the activity. Or, the assistance of 2 or more helpers is required for the patient to complete the activity. If activity was not attempted, code reason: 7-Patient Refused. 9-Not Applicable-not attempted and the patient did not perform the activity before the current illness, exacerbation or injury. 10-Not Attempted due to Environmental Limitations-(lack of equipment, weather restraints, etc.). 88-Not Attempted due to Medical Conditions or Safety Concerns. Other Treatment To increase dynamic sitting balance, pt reached for beans alternating between R and L side and tossed them into basket for improved safety and independence with ADLs, such as bathing and dressing. Pt demonstrated good dynamic balance and required resting break due to decreased activity tolerance. Pt then completed task in standing, while using tobacco wrapping machine tender for increased dynamic standing balance when brushing teeth and combing hair. Skilled instruction required of 3lb weighted BUE exercises. Pt completed x2 sets of 10 reps of BUE 3lb weighted exercises of elbow flexion, chest press, shlder abduction/adduction, shlder flexion, shlder extension, and wrist flexion. Pt tolerated exerices and demionstrated good technique. Pt required resting break in between set. Pt manipulated green therapy putty to locate hidden beads for increase FM skills and hand strength for improved independence with opening/closing fasteners. After session, pt sitting in recliner. All needs met and call light in reach. Education OT Patient Education: Correct positioning, Energy conservation, Exercise program, Home exercise program, Progress toward Goal/Update tx plan, Purpose of tx/functional activities, Use of adapted equipment Teaching Recipient: Patient Teaching Methods: Demonstration, Discussion Response to Teaching: Verbalize Understanding, Return Demonstration OT Short Term Goals Short Term Goals Time Frame: May 31, 2021 Eatin Oral hygiene: 5 Toileting hygiene: 4 Shower/bathe self: 3 Upper body dressin Lower body dressin Putting on/taking off footwear: 3 OT [facility] Goals Saxophone Teacher Goals Time Frame: Jun 10, 2021 Eating (QC): 6 Oral Hygiene (QC): 6 Toileting Hygiene (QC): 6 Shower/Bathe Self (QC): 5 Upper Body Dressing (QC): 5 Lower Body Dressing (QC): 5 On/Off Footwear (QC): 5 1=Demonstrate adherence to instructed precautions during ADL tasks. 2=Patient will verbalize/demonstrate understanding of assistive devices/modifications for ADL. 3=Patient will improve strength/tolerance for activity to enable patient to perform ADL's. OT Education/Plan Discharge Recommendations Plan/Recommendations: Continue POC Treatment Plan/Plan of Care Patient would benefit from OT for education, treatment and training to promote independence in ADL's, mobility, safety and/or upper extremity function for ADL's. Plan of Care: ADL Retraining, Functional Mobility, Group Exercise/Act as Ind, UE Funct Exercise/Act Treatment Duration: Jun 10, 2021 Frequency: At least 5 of 7 days/Wk (IRF) Estimated Hrs Per Day: 1.5 hours per day (60-90 min/day) Rehab Potential: Good Time/GCodes Start Time: 11:00 Stop Time: 12:00 Total Time Billed (hr/min): 60 Billed Treatment Time 1 visit- FA 3 (42 mins) EX (18 mins) OLAF ANDERSON May 29, 2021 11:59
--- NOTE | 2021-05-29 14:00 | Physical Therapy Daily Note ---
PT Daily Note-Current Subjective Pt. up in recliner , agrees to Rx, tired from AM Rx. States she has been so happy with her care her "top notch" Pain Numeric Pain Scale: 2 Location: Left Location Body Site: Hip Pain Description: Ache Mental Status Patient Orientation: Normal For Age Transfers SCALE: Activities may be completed with or without assistive devices. 9-Wzbhfafvta-ppeojif completes the activity by him/herself with no assistance from a helper. 5-Set-up or Clean-up Assistance-helper sets up or cleans up; patient completes activity. [place] assists only prior to or following the activity. 4-Supervision or Touching Assistance-helper provides verbal cues and/or touching/steadying and/or contact guard assistance as patient completes activity. Assistance may be provided throughout the activity or intermittently. 3-Partial/Moderate Assistance-helper does LESS THAN HALF the effort. [place] lifts, holds or supports trunk or limbs, but provides less than half the effort. 2-Substantial/Maximal Assistance-helper does MORE THAN HALF the effort. [place] lifts or holds trunk or limbs and provides more than half the effort. 8-Efluwcwyx-tzgskn does ALL the effort. Patient does none of the effort to complete the activity. Or, the assistance of 2 or more helpers is required for the patient to complete the activity. If activity was not attempted, code reason: 7-Patient Refused. 9-Not Applicable-not attempted and the patient did not perform the activity before the current illness, exacerbation or injury. 10-Not Attempted due to Environmental Limitations-(lack of equipment, weather restraints, etc.). 88-Not Attempted due to Medical Conditions or Safety Concerns. sit to stand all mod I Weight Bearing Right Lower Extremity: Right Full Weight Bearing Left Lower Extremity: Left Weight Bearing/Tolerated Exercises Supine Ex: Ankle pumps, Quad Set, Glut sets, Heel Slides, Short Arc Quads, Straight leg raise (assisted left), Hip abd/add Supine Reps: 15 Assessment Current Status: Good Progress meets goals PT Detention Goals Detention Goals PT Detention Goals Time Frame: June 21, 2021 Roll Left & Right (QC): 6 Sit to Lying (QC): 6 Lying-Sitting on Side/Bed(QC): 6 Sit to Stand (QC): 6 Chair/Zpq-ej-Lngbe Xfer(QC): 6 Toilet Transfer (QC): 6 Car Transfer (QC): 6 Does the Patient Walk: Yes Walk 10 feet (QC): 6 Walk 50ft with 2 Turns (QC): 6 Walk 150 ft (QC): 6 Walking 10ft on Uneven Surface: 6 1 Step (curb) (QC): 6 4 Steps (QC): 6 12 Steps (QC): 6 Picking up an Object (QC): 6 Wheel 50 feet with 2 turns (QC: 9 Wheel 150 feet: 9 PT Plan Treatment/Plan Treatment Plan: Continue Plan of Care Treatment Plan: Bed Mobility, Concurrent Therapy, Education, Functional Ac tivity Marco Antonio, Functional Strength, Group Therapy, Gait, Safety, Therapeutic Exercise, Transfers Treatment Duration: June 21, 2021 Frequency: At least 5 of 7 days/Wk (IRF) Estimated Hrs Per Day: 1.5 hours per day Patient and/or Family Agrees t: Yes Safety Risks/Education Patient Education: Transfer Techniques, Correct Positioning Time/GCodes Time In: 1330 Time Out: 1400 Total Billed Treatment Time: 30 Total Billed Treatment 1,FA10m,EX20m ARAMIS LARA PRODUCTION MACHINE TENDER May 29, 2021 14:00
[2021-05-29 20:19] VITALS: BP 154/84
[2021-05-30] MEDS: ACETAMINOPHEN 325 MG TABLET PO PRN (03:23)
[2021-05-30] MEDS: MULTIVIT W/MINERALS TAB (THERAGRAN M) PO SCH (06:41)
[2021-05-30] MEDS: ASCORBIC ACID (VIT C) 500 MG TABLET PO SCH (06:42)
[2021-05-30] MEDS: inSUlin ASPART (NovoLOG) 1 UNIT/0.01 ML (CHARGE PER UNIT) SC SCH (06:42)
[2021-05-30] MEDS: inSUlin ASPART (NovoLOG) 1 UNIT/0.01 ML (CHARGE PER UNIT) SQ SCH (06:43)
[2021-05-30] MEDS ORDERED: BACL10TA PO (06:57)
[2021-05-30] MEDS ORDERED: OXC5T PO ×2 (06:57→12:13)
[2021-05-30] MEDS ORDERED: ASPI-1238 PO (06:57)
--- NOTE | 2021-05-30 06:58 | Discharge Summary ---
Diagnosis/Chief Complaint Date of Admission May 20, 2021 at 09:17 Date of Discharge Discharge Date: May 30, 2021 Discharge Diagnosis Assessment: Left hip fracture status post repair postop day #13 DM on insulin Previous stroke with left-sided weakness Loop recorder in place Former smoker cessation 2 years ago Hyperlipidemia Hypertension CAD previous stent Postop acute blood loss anemia Great toe amputation Easily tearful since stroke UTI with resistance status post fosfomycin 05/23/2021 1 dose Plan: Aggressive rehab Supportive care Monitor blood sugar Pain control 05/21/2021: Supportive care Hold rapid acting insulin for sugar less than 130 Await urine culture 05/22/2021: Await urine culture Supportive care 05/23/2021: Fosfomycin for UTI Supportive care 05/24/2021: Supportive care Pain control 05/25/2021: Supportive care Decrease pain meds 05/26/2021: Continue pain control Blood sugars good 05/27/21: Supportive care Monitor closely 05/28/2021: Supportive care Monitor closely 05/29/2021: Supportive care Discharge tomorrow (1) Fracture, intertrochanteric, left femur Status: Acute (2) History of stroke Status: Chronic (3) HTN (hypertension) Status: Chronic (4) CAD (coronary artery disease) Status: Chronic (5) Diabetes Status: Chronic (6) Mixed hyperlipidemia (7) Presence of stent in coronary artery Discharge Summary Discharge Physical Examination Allergies: Coded Allergies: Xxjaqke-WCV-[id number] Reductase Inhibitor (Verified Allergy, Unknown, 05/21/21) cefdinir (Verified Adverse Reaction, Mild, NAUSEA, yeast infection, 11/08/19) Cephalosporins (Verified Adverse Reaction, Unknown, yeast infections, 11/08/19) Vitals & I&Os Vital Signs Date Time Temp Pulse Resp B/P (MAP) Pulse Ox O2 Delivery O2 Flow Rate FiO2 05/30/21 10:55 35.9 75 18 157/71 95 Room Air General Appearance: Alert, Oriented X3, Cooperative Respiratory: Clear to Auscultation Cardiovascular: Regular Rate Neuro: Normal Gait, Normal Speech, Strength at 5/5 X4 Ext Psych/Mental Status: Mental Status NL Hospital Course Was the Problem List Reviewed?: Yes Hospital course: Patient had an uneventful but lengthy hospital course after she suffered a hip fracture and had severe debility considering remaining left-sided weakness from CVA remotely. Insulin was maintained for diabetes. Pain was controlled after frequent oxycodone doses then decreased only Tylenol and baclofen for the most part. Narcotic bowel present with aggressive laxatives. Labs remained stable. Overall she had a dramatic improvement and was able to discharge in improved condition at home. Labs (last 24 hrs) Laboratory Tests 05/20/21 09:17: Lab Scanned Report Referred Lab Report 05/20/21 10:58: Glucometer 107 05/20/21 15:18: Glucometer 129H 05/20/21 20:10: Glucometer 155H 05/21/21 05:30: White Blood Count 9.2, Red Blood Count 3.47L, Hemoglobin 9.9L, Hematocrit 31L, Mean Corpuscular Volume 88, Mean Corpuscular Hemoglobin 29, Mean Corpuscular Hemoglobin Concent 33, Red Cell Distribution Width 13.7, Platelet Count 297, Mean Platelet Volume 10.2, Immature Granulocyte % (Auto) 0, Neutrophils (%) (Auto) 63, Lymphocytes (%) (Auto) 22, Monocytes (%) (Auto) 11, Eosinophils (%) (Auto) 3, Basophils (%) (Auto) 1, Neutrophils # (Auto) 5.8, Lymphocytes # (Auto) 2.0, Monocytes # (Auto) 1.0, Eosinophils # (Auto) 0.3, Basophils # (Auto) 0.1, Immature Granulocyte # (Auto) 0.0, Sodium Level 138, Potassium Level 4.2, Chloride Level 102, Carbon Dioxide Level 24, Anion Gap 12, Blood Urea Nitrogen 34H, Creatinine 0.96, Estimat Glomerular Filtration Rate 68, BUN/Creatinine Ratio 35, Glucose Level 168H, Calcium Level 8.8, Corrected Calcium 9.8, Total Bilirubin 0.8, Aspartate Amino Transf (AST/SGOT) 15, Alanine Aminotransferase (ALT/SGPT) 15, Alkaline Phosphatase 96, Total Protein 5.9L, Albumin 2.8L 05/21/21 06:06: Glucometer 175H 05/21/21 11:13: Glucometer 103 05/21/21 13:00: Urine Color YELLOW, Urine Clarity CLEAR, Urine pH 5.5, Urine Specific [place] 1.015L, Urine Protein NEGATIVE, Urine Glucose (UA) NEGATIVE, Urine Ketones NEGATIVE, Urine Nitrite NEGATIVE, Urine Bilirubin NEGATIVE, Urine Urobilinogen 0.2, Urine Leukocyte Esterase 1+H, Urine RBC (Auto) NEGATIVE, Urine RBC NONE, Urine WBC 10-25H, Urine Squamous Epithelial Cells NONE, Urine Crystals NONE, Urine Bacteria LARGEH, Urine Casts NONE, Urine Mucus NEGATIVE, Urine Culture Indicated YES 05/21/21 16:29: Glucometer 220H 05/21/21 20:40: Glucometer 131H 05/22/21 06:06: Glucometer 169H 05/22/21 11:11: Glucometer 136H 05/22/21 16:44: Glucometer 267H 05/22/21 21:37: Glucometer 182H 05/23/21 05:38: Glucometer 183H 05/23/21 11:47: Glucometer 88 05/23/21 15:34: Glucometer 266H 05/23/21 20:11: Glucometer 117H 05/24/21 06:47: Glucometer 149H 05/24/21 11:00: Glucometer 299H 05/24/21 15:09: Glucometer 110 05/24/21 20:02: Glucometer 164H 05/25/21 06:19: Glucometer 147H 05/25/21 10:55: Glucometer 246H 05/25/21 16:58: Glucometer 92 05/25/21 21:27: Glucometer 290H 05/26/21 05:34: Glucometer 130H 05/26/21 07:02: White Blood Count 9.6, Red Blood Count 4.02, Hemoglobin 11.3L, Hematocrit 36, Mean Corpuscular Volume 89, Mean Corpuscular Hemoglobin 28, Mean Corpuscular Hemoglobin Concent 32, Red Cell Distribution Width 13.9, Platelet Count 485H, Mean Platelet Volume 9.1, Immature Granulocyte % (Auto) 2, Neutrophils (%) (Auto) 57, Lymphocytes (%) (Auto) 26, Monocytes (%) (Auto) 10, Eosinophils (%) (Auto) 3, Basophils (%) (Auto) 1, Neutrophils # (Auto) 5.5, Lymphocytes # (Auto) 2.5, Monocytes # (Auto) 1.0, Eosinophils # (Auto) 0.3, Basophils # (Auto) 0.1, Immature Granulocyte # (Auto) 0.2H, Sodium Level 142, Potassium Level 4.5, Chloride Level 104, Carbon Dioxide Level 27, Anion Gap 11, Blood Urea Nitrogen 16, Creatinine 0.91, Estimat Glomerular Filtration Rate 72, BUN/Creatinine Ratio 18, Glucose Level 162H, Calcium Level 9.0, Corrected Calcium 9.6, Total Bilirubin 0.4, Aspartate Amino Transf (AST/SGOT) 14, Alanine Aminotransferase (ALT/SGPT) 11, Alkaline Phosphatase 105, Total Protein 6.5, Albumin 3.2 05/26/21 10:50: Glucometer 267H 05/26/21 15:14: Glucometer 132H 05/26/21 20:26: Glucometer 170H 05/27/21 05:34: Glucometer 140H 05/27/21 10:50: Glucometer 247H 05/27/21 15:15: Glucometer 55*L 05/27/21 15:16: Glucometer 53*L 05/27/21 15:38: Glucometer 105 05/27/21 20:06: Glucometer 238H 05/28/21 05:56: Glucometer 175H 05/28/21 10:55: Glucometer 178H 05/28/21 15:37: Glucometer 93 05/28/21 20:26: Glucometer 275H 05/28/21 21:53: Glucometer 313H 05/29/21 05:43: Glucometer 210H 05/29/21 11:03: Glucometer 136H 05/29/21 14:24: Glucometer 170H 05/29/21 15:24: Glucometer 116H 05/29/21 20:17: Glucometer 174H 05/30/21 06:07: Glucometer 161H Microbiology 05/21/21 Urine Culture - Final, Complete Escherichia coli Pending Labs Microbiology Date/Time Source Procedure Growth Status 05/21/21 13:00 Urine Straight Cath, In/Out Urine Culture - Final Escherichia coli Complete Laboratory Tests 05/20/21 09:17: Lab Scanned Report Referred Lab Report 05/20/21 10:58: Glucometer 107 05/20/21 15:18: Glucometer 129 05/20/21 20:10: Glucometer 155 05/21/21 05:30: White Blood Count 9.2, Red Blood Count 3.47, Hemoglobin 9.9, Hematocrit 31, Mean Corpuscular Volume 88, Mean Corpuscular Hemoglobin 29, Mean Corpuscular He moglobin Concent 33, Red Cell Distribution Width 13.7, Platelet Count 297, Mean Platelet Volume 10.2, Immature Granulocyte % (Auto) 0, Neutrophils (%) (Auto) 63, Lymphocytes (%) (Auto) 22, Monocytes (%) (Auto) 11, Eosinophils (%) (Auto) 3, Basophils (%) (Auto) 1, Neutrophils # (Auto) 5.8, Lymphocytes # (Auto) 2.0, Monocytes # (Auto) 1.0, Eosinophils # (Auto) 0.3, Basophils # (Auto) 0.1, Immature Granulocyte # (Auto) 0.0, Sodium Level 138, Potassium Level 4.2, Chloride Level 102, Carbon Dioxide Level 24, Anion Gap 12, Blood Urea Nitrogen 34, Creatinine 0.96, Estimat Glomerular Filtration Rate 68, BUN/Creatinine Ratio 35, Glucose Level 168, Calcium Level 8.8, Corrected Calcium 9.8, Total Bilirubin 0.8, Aspartate Amino Transf (AST/SGOT) 15, Alanine Aminotransferase (ALT/SGPT) 15, Alkaline Phosphatase 96, Total Protein 5.9, Albumin 2.8 05/21/21 06:06: Glucometer 175 05/21/21 11:13: Glucometer 103 05/21/21 13:00: Urine Color YELLOW, Urine Clarity CLEAR, Urine pH 5.5, Urine Specific [place] 1.015, Urine Protein NEGATIVE, Urine Glucose (UA) NEGATIVE, Urine Ketones NEGATIVE, Urine Nitrite NEGATIVE, Urine Bilirubin NEGATIVE, Urine Urobilinogen 0.2, Urine Leukocyte Esterase 1+, Urine RBC (Auto) NEGATIVE, Urine RBC NONE, Urine WBC 10-25, Urine Squamous Epithelial Cells NONE, Urine Crystals NONE, Urine Bacteria LARGE, Urine Casts NONE, Urine Mucus NEGATIVE, Urine Culture Indicated YES 05/21/21 16:29: Glucometer 220 05/21/21 20:40: Glucometer 131 05/22/21 06:06: Glucometer 169 05/22/21 11:11: Glucometer 136 05/22/21 16:44: Glucometer 267 05/22/21 21:37: Glucometer 182 05/23/21 05:38: Glucometer 183 05/23/21 11:47: Glucometer 88 05/23/21 15:34: Glucometer 266 05/23/21 20:11: Glucometer 117 05/24/21 06:47: Glucometer 149 05/24/21 11:00: Glucometer 299 05/24/21 15:09: Glucometer 110 05/24/21 20:02: Glucometer 164 05/25/21 06:19: Glucometer 147 05/25/21 10:55: Glucometer 246 05/25/21 16:58: Glucometer 92 05/25/21 21:27: Glucometer 290 05/26/21 05:34: Glucometer 130 05/26/21 07:02: White Blood Count 9.6, Red Blood Count 4.02, Hemoglobin 11.3, Hematocrit 36, Mean Corpuscular Volume 89, Mean Corpuscular Hemoglobin 28, Mean Corpuscular Hemoglobin Concent 32, Red Cell Distribution Width 13.9, Platelet Count 485, Mean Platelet Volume 9.1, Immature Granulocyte % (Auto) 2, Neutrophils (%) (Auto) 57, Lymphocytes (%) (Auto) 26, Monocytes (%) (Auto) 10, Eosinophils (%) (Auto) 3, Basophils (%) (Auto) 1, Neutrophils # (Auto) 5.5, Lymphocytes # (Auto) 2.5, Monocytes # (Auto) 1.0, Eosinophils # (Auto) 0.3, Basophils # (Auto) 0.1, Immature Granulocyte # (Auto) 0.2, Sodium Level 142, Potassium Level 4.5, Chloride Level 104, Carbon Dioxide Level 27, Anion Gap 11, Blood Urea Nitrogen 16, Creatinine 0.91, Estimat Glomerular Filtration Rate 72, BUN/Creatinine Ratio 18, Glucose Level 162, Calcium Level 9.0, Corrected Calcium 9.6, Total Bilirubin 0.4, Aspartate Amino Transf (AST/SGOT) 14, Alanine Aminotransferase (ALT/SGPT) 11, Alkaline Phosphatase 105, Total Protein 6.5, Albumin 3.2 05/26/21 10:50: Glucometer 267 05/26/21 15:14: Glucometer 132 05/26/21 20:26: Glucometer 170 05/27/21 05:34: Glucometer 140 05/27/21 10:50: Glucometer 247 05/27/21 15:15: Glucometer 55 05/27/21 15:16: Glucometer 53 05/27/21 15:38: Glucometer 105 05/27/21 20:06: Glucometer 238 05/28/21 05:56: Glucometer 175 05/28/21 10:55: Glucometer 178 05/28/21 15:37: Glucometer 93 05/28/21 20:26: Glucometer 275 05/28/21 21:53: Glucometer 313 05/29/21 05:43: Glucometer 210 05/29/21 11:03: Glucometer 136 05/29/21 14:24: Glucometer 170 05/29/21 15:24: Glucometer 116 05/29/21 20:17: Glucometer 174 05/30/21 06:07: Glucometer 161 Discharge Home Medications: Active Scripts Active Oxyir Tablet (Oxycodone HCl) 5 Mg Tab 10 Mg PO Q4H PRN Aspirin EC (Aspirin) 81 Mg Tablet.dr 81 Mg PO BID WITH MEALS Baclofen 10 Mg Tablet 10 Mg PO TID PRN Reported Atorvastatin Calcium 20 Mg Tablet 20 Mg PO HS LAST FILLED 12-18-2020 #30/30 DAY SUPPLY Vitamin D3 (Cholecalciferol (Vitamin D3)) 125 Mcg Tablet 125 Mcg PO DAILY Vitamin C (Ascorbate Calcium) 500 Mg Tablet 500 Mg PO DAILY Tylenol Arthritis (Acetaminophen) 650 Mg Tablet.er 1,300 Mg PO Q8H PRN Multivitamin 1 Each Tablet 1 Each PO DAILY Celexa (Citalopram Hydrobromide) 20 Mg Tablet 20 Mg PO DAILY Bydureon Bcise (Exenatide Microspheres) 2 Mg/0.85 Ml Auto.injct 2 Mg SQ SUN Metoprolol Succinate 25 Mg Tab.er.24h 25 Mg PO DAILY Protonix (Pantoprazole Sodium) 40 Mg Tablet.dr 40 Mg PO DAILY Levemir Flextouch (Insulin Detemir) 100 Unit/1 Ml Insuln.pen 25 Unit SQ HS Novolog Flexpen (Insulin Aspart) 300 Units/3 Ml Solution 15 Units SQ AC Pregabalin 100 Mg Capsule 100 Mg PO BID Instructions to patient/family Please see electronic discharge instructions given to patient. Diagnosis/Problems Diagnosis/Problems (1) Fracture, intertrochanteric, left femur Status: Acute (2) History of stroke Status: Chronic (3) HTN (hypertension) Status: Chronic (4) CAD (coronary artery disease) Status: Chronic (5) Diabetes Status: Chronic (6) Mixed hyperlipidemia (7) Presence of stent in coronary artery MIYA CASTILLO DO May 30, 2021 06:57
[2021-05-30 08:00] VITALS: BP 157/71
[2021-05-30] MEDS: PANTOPRAZOLE 40 MG (PROTONIX) TAB PO SCH (08:04)
[2021-05-30] MEDS: VITAMIN D3 125 MCG (5,000 UNITS) CAPSULE PO SCH (08:05)
[2021-05-30] MEDS: ACETAMINOPHEN 500 MG TAB (TYLENOL) PO SCH (08:05)
[2021-05-30] MEDS: LACTOBACILLUS ACIDOPHILUS (PROBIOTIC) CAPSULE PO SCH (08:05)
[2021-05-30] MEDS: ASPIRIN E.C. 81 MG (ECOTRIN) TAB PO SCH (08:06)
[2021-05-30] MEDS: PREGABALIN 100 MG (LYRICA) CAPSULE PO SCH (08:06)
[2021-05-30] MEDS: DOCUSATE SODIUM 100 MG (COLACE) CAP PO SCH (08:11)
[2021-05-30] MEDS: BACLOFEN 10 MG (LIORESAL) TAB PO PRN (08:11)
--- NOTE | 2021-05-30 08:16 | Therapy Team Discharge Summary ---
Therapy Discharge Summary Discharge Recommendations Date of Discharge Physical Therapy Patient came to rehab following a left hip fracture. Upon evaluation patient performed rolling and supine <-> sit with min/mod assist, sit <-> stand and transfers with min/mod assist, car transfer min/mod assist, ambulated 15' with a rolling walker with min/mod assist (including 10' over an uneven surface), and went up and down 1 step using a rolling walker with min/mod assist. Patient has been performing bed mobility and transfer training, balance and endurance training, functional strengthening, stair training, gait training, and education. Patient has made fair progress but has not met any of her senior living goals. Now, patient performs rolling with independence and supine <-> sit with SBA, sit <-> stand and transfers SBA, car transfer SBA, ambulates 150' with a rolling walker with SBA (including 50' with at least 2 turns of 90 degrees and 10' over an uneven surface), can go up and down 4 steps using 2 handrails with SBA, and can pickers material handlers an object from the floor using a make up arranger with independence. Patient is being discharged from this facility today and will be discharged from PT at this time. Roll Left to Right (QC): 6 Sit to Lying (QC): 4 (SBA) Lying to Sitting/Side of Bed(Q: 4 (SBA) Sit to Stand (QC): 4 (SBA) Chair/Lwb-sw-Fdfsy Xfer(QC): 4 (SBA) Toilet Transfer (QC): 5 Car Transfer (QC): 4 (SBA) Does the Patient Walk: Yes Mode of Locomotion: Walk Anticipated Mode of Locomotion: Walk Walk 10 feet (QC): 4 (SBA ) Walk 50 ft with 2 Turns(QC): 4 (SBA) Walk 150 ft (QC): 4 (SBA) Walking 10ft on uneven surface: 4 (SBA) Distance: 15' x 6 Gait Assistive Device: Walker 4 Wheeled Does the Pt Use a Wheelchair: No Wheel 50 ft with 2 turns (QC): 4 Wheel 150 ft (QC): 9 Type of Wheelchair: N/A #of Steps: 4 1 Step (curb) (QC): 4 (CGA) 4 Steps (QC): 4 (CGA) 12 Steps (QC): 88 Walking Assistive Device: Walker Balance Sitting Static: Normal Balance Sitting Dynamic: Normal Balance-Standing Static: Fair Picking up an Object (QC): 6 Occupational Therapy Decreased Activ Tolerance, Decreased UE Strength, Impaired I ADL's, Impaired Self-Care Skills Eating (QC): 6 (IND per pt report.) Oral Hygiene (QC): 6 Shower/Bathe Self (QC): 4 (Supervision for safety) Upper Body Dressing (QC): 5 Lower Body Dressing (QC): 4 (CGA when hiking LB dressing) On/Off Footwear (QC): 3 Toileting Hygiene (QC): 6 PT Shelter Goals Shelter Goals PT Product Distribution Specialist Goals Time Frame: June 21, 2021 Roll Left to Right (QC): 6 Sit to Lying (QC): 6 Lying-Sitting on Side/Bed(QC): 6 Sit to Stand (QC): 6 Chair/Swp-bt-Mivhd Xfer(QC): 6 Car Transfer (QC): 6 Does the Patient Walk: Yes Walk 10 feet (QC): 6 Walk 10ft-Uneven Surface(QC): 6 Walk 50ft with 2 Turns (QC): 6 Walk 150 ft (QC): 6 Wheel 50 feet with 2 turns (QC: 9 1 Step (curb) (QC): 6 4 Steps (QC): 6 12 Steps (QC): 6 Picking up an Object (QC): 6 OT Product Distribution Specialist Goals Product Distribution Specialist Goals Time Frame: Jun 10, 2021 Eating (QC): 6 (Met per clinical judgemt) Oral Hygiene (QC): 6 (Met) Shower/Bathe Self (QC): 5 (Met) Upper Body Dressing (QC): 5 (Met) Lower Body Dressing (QC): 5 (Met) On/Off Footwear (QC): 5 (Met per clinical judgemt) Toileting Hygiene (QC): 6 (Met per clinical judgement) Toilet/Commode Transfer (QC): 6 1=Demonstrate adherence to instructed precautions during ADL tasks. 2=Patient will verbalize/demonstrate understanding of assistive devices/modifications for ADL. 3=Patient will improve strength/tolerance for activity to enable patient to perform ADL's. DAGMAR GENTILE PT May 30, 2021 08:16
[2021-05-30 10:55] VITALS: BP 157/71
--- NOTE | 2021-05-30 13:28 | Therapy Team Discharge Summary ---
Therapy Discharge Summary Discharge Recommendations Date of Discharge Therapy D/C Recommendations: Occupational Therapy Home Care, Homemaker Support Physical Therapy Roll Left to Right (QC): 6 Sit to Lying (QC): 4 (SBA) Lying to Sitting/Side of Bed(Q: 4 (SBA) Sit to Stand (QC): 4 (SBA) Chair/Kih-aj-Yefnm Xfer(QC): 4 (SBA) Toilet Transfer (QC): 5 Car Transfer (QC): 4 (SBA) Does the Patient Walk: Yes Mode of Locomotion: Walk Anticipated Mode of Locomotion: Walk Walk 10 feet (QC): 4 (SBA ) Walk 50 ft with 2 Turns(QC): 4 (SBA) Walk 150 ft (QC): 4 (SBA) Walking 10ft on uneven surface: 4 (SBA) Distance: 15' x 6 Gait Assistive Device: Walker 4 Wheeled Does the Pt Use a Wheelchair: No Wheel 50 ft with 2 turns (QC): 4 Wheel 150 ft (QC): 9 Type of Wheelchair: N/A #of Steps: 4 1 Step (curb) (QC): 4 (CGA) 4 Steps (QC): 4 (CGA) 12 Steps (QC): 88 Walking Assistive Device: Walker Balance Sitting Static: Normal Balance Sitting Dynamic: Normal Balance-Standing Static: Fair Picking up an Object (QC): 6 Occupational Therapy Pt arrived to ARU following a left hip fracture. At time of eval, she was dependent for footwear, max a for toileting and lower body dressing, mod a for bathing, sba for oral care, set up for upper body dressing and indep with eating. While on rehab, OT focused on endurance, strength, activity tolerance, balance, adaptive equipment/strategies and energy conservation strategies in order to improve indep and safety with adls and mobility. Pt made good progress but did not meet all of her skilled nursing goals secondary to needing supervision for safety. See below for levels of assist. Pt is discharging from this facility today and will be discharged from OT at this time. Decreased Activ Tolerance, Decreased UE Strength, Impaired I ADL's, Impaired Self-Care Skills Eating (QC): 6 (IND per pt report.) Oral Hygiene (QC): 6 Shower/Bathe Self (QC): 4 (Supervision for safety) Upper Body Dressing (QC): 5 Lower Body Dressing (QC): 5 On/Off Footwear (QC): 3 Toileting Hygiene (QC): 6 PT Custodial Goals Custodial Goals PT Custodial Goals Time Frame: June 21, 2021 Roll Left to Right (QC): 6 Sit to Lying (QC): 6 Lying-Sitting on Side/Bed(QC): 6 Sit to Stand (QC): 6 Chair/Bts-ox-Tfryu Xfer(QC): 6 Car Transfer (QC): 6 Does the Patient Walk: Yes Walk 10 feet (QC): 6 Walk 10ft-Uneven Surface(QC): 6 Walk 50ft with 2 Turns (QC): 6 Walk 150 ft (QC): 6 Wheel 50 feet with 2 turns (QC: 9 1 Step (curb) (QC): 6 4 Steps (QC): 6 12 Steps (QC): 6 Picking up an Object (QC): 6 OT Business Intelligence Reporting Analyst Goals Business Intelligence Reporting Analyst Goals Time Frame: Jun 10, 2021 Eating (QC): 6 (Met) Oral Hygiene (QC): 6 (Met) Shower/Bathe Self (QC): 5 (Met) Upper Body Dressing (QC): 5 (Met) Lower Body Dressing (QC): 5 (Met) On/Off Footwear (QC): 5 (not met) Toileting Hygiene (QC): 6 (Met) Toilet/Commode Transfer (QC): 6 (not met) 1=Demonstrate adherence to instructed precautions during ADL tasks. 2=Patient will verbalize/demonstrate understanding of assistive devices/modifications for ADL. 3=Patient will improve strength/tolerance for activity to enable patient to perform ADL's. Lynette Garcia OT May 30, 2021 13:28
== END 2021-05-30 10:55 | disposition home or self-care (01) | DRG 560 ==
PROVIDERS: ADMIT Internal Medicine; ATTEND Internal Medicine
DX: S72.142D Displaced intertrochanteric fracture of left femur, subsequent encounter for closed fracture with routine healing (principal); I69.354 Hemiplegia and hemiparesis following cerebral infarction affecting left non-dominant side; D62 Acute posthemorrhagic anemia; N39.0 Urinary tract infection, site not specified; M60.9 Myositis, unspecified; E11.51 Type 2 diabetes mellitus with diabetic peripheral angiopathy without gangrene; I70.202 Unspecified atherosclerosis of native arteries of extremities, left leg; E11.40 Type 2 diabetes mellitus with diabetic neuropathy, unspecified; I25.10 Atherosclerotic heart disease of native coronary artery without angina pectoris; I10 Essential (primary) hypertension; K21.9 Gastro-esophageal reflux disease without esophagitis; E78.2 Mixed hyperlipidemia; F41.9 Anxiety disorder, unspecified; F32.A Depression, unspecified; Z79.4 Long term (current) use of insulin; Z89.411 Acquired absence of right great toe; Z87.891 Personal history of nicotine dependence; Z95.5 Presence of coronary angioplasty implant and graft; Z83.3 Family history of diabetes mellitus; Z82.49 Family history of ischemic heart disease and other diseases of the circulatory system; Z88.1 Allergy status to other antibiotic agents; Z79.82 Long term (current) use of aspirin
CPT/HCPCS: 36415; 80053; 81000; 82947; 85025; 87077; 87088; 87186

== ENCOUNTER 2021-06-12 10:10 | Outpatient (RCR) | payer MEDICARE ==
[~2021-06-12 10:10] MED LIST changes: +BACL10TA PO; +BUPR-104 PO; -BUPR100T8 PO; +OXC5T PO
== END 2021-06-14 | disposition home or self-care (01) ==
PROVIDERS: ATTEND Family Medicine
DX: S72.002D Fracture of unspecified part of neck of left femur, subsequent encounter for closed fracture with routine healing (principal); E11.9 Type 2 diabetes mellitus without complications; Z98.890 Other specified postprocedural states

== ENCOUNTER → 2021-06-17 | Outpatient (CLI) | payer MEDICARE ==
--- NOTE | 2021-06-17 12:23 | Diagnostic Imaging Report ---
INDICATION: Postop left hip. TIME OF EXAM: 10:48 AM. COMPARISON: Correlation is made with the prior radiograph from 05/15/2021. FINDINGS: Since the prior study, an intramedullary tray and compression screw have been placed to transfix the left hip fracture. Overall alignment is anatomic. Femoroacetabular alignment is normal. The hardware is intact. IMPRESSION: Satisfactory postop left hip. Dictated by: Dictated on workstation # [id number]
== END ==
LOC: ORTHO 10:26
PROVIDERS: ATTEND Orthopaedic Surgery
DX: Z47.89 Encounter for other orthopedic aftercare (principal); Z98.890 Other specified postprocedural states
CPT/HCPCS: 73502

== ENCOUNTER → 2021-07-15 | Outpatient (CLI) | payer MEDICARE | LOC: CARD 10:04 | PROVIDERS: ATTEND Physician Assistant | DX: I10 Essential (primary) hypertension (principal) | CPT/HCPCS: 93306 ==

== ENCOUNTER → 2021-07-15 | Outpatient (RCR) | payer MEDICARE | END | disposition home or self-care (01) | PROVIDERS: ATTEND Family Medicine | DX: S72.002D Fracture of unspecified part of neck of left femur, subsequent encounter for closed fracture with routine healing (principal); E11.9 Type 2 diabetes mellitus without complications; I11.9 Hypertensive heart disease without heart failure; Z98.890 Other specified postprocedural states; W19.XXXD Unspecified fall, subsequent encounter ==

== ENCOUNTER → 2021-07-23 | Outpatient (CLI) | payer MEDICARE ==
--- NOTE | 2021-07-23 14:52 | Diagnostic Imaging Report ---
EXAMINATION: Left hip unilateral 2 or 3 views (w/pelvis when done). HISTORY: Postoperative check. COMPARISON: 06/17/2021. FINDINGS: Again seen are postoperative findings with an intramedullary tray and proximal and distal intervening screws in the proximal femur. The fracture site demonstrates interval sclerosis and callus formation. It is in good anatomic alignment. No dislocations. No new fractures. IMPRESSION: 1. Uncomplicated postoperative findings. Dictated by: Dictated on workstation # [id number]
== END ==
LOC: ORTHO 14:01
PROVIDERS: ATTEND Orthopaedic Surgery
DX: Z47.89 Encounter for other orthopedic aftercare (principal); Z98.890 Other specified postprocedural states
CPT/HCPCS: 73502

== ENCOUNTER 2021-07-28 11:18 | Outpatient (RCR) | payer MEDICARE, OTHER | END 2021-08-14 11:03 | disposition home or self-care (01) | PROVIDERS: ATTEND Family Medicine | DX: S72.002D Fracture of unspecified part of neck of left femur, subsequent encounter for closed fracture with routine healing (principal); E11.9 Type 2 diabetes mellitus without complications; Z98.890 Other specified postprocedural states; I10 Essential (primary) hypertension; X58.XXXD Exposure to other specified factors, subsequent encounter ==

== ENCOUNTER → 2021-09-02 | Outpatient (CLI) | payer MEDICARE | LOC: ORTHO 10:20 | PROVIDERS: ATTEND Orthopaedic Surgery | DX: Z47.89 Encounter for other orthopedic aftercare (principal); E78.5 Hyperlipidemia, unspecified; I10 Essential (primary) hypertension; E66.9 Obesity, unspecified | CPT/HCPCS: 99213 ==

== ENCOUNTER 2021-11-12 05:39 | Outpatient (CLI) | payer MEDICARE ==
[~2021-11-12] VITALS: Ht 172.7 cm; Wt 97.0 kg
[~2021-11-12 05:39] MED LIST changes: +LEVO750T PO; -LEVO750T39 PO
== END 2021-11-13 10:33 | disposition home or self-care (01) ==
LOC: PREOP 05:39
PROVIDERS: ATTEND Surgery
DX: Z01.818 Encounter for other preprocedural examination (principal); Z12.11 Encounter for screening for malignant neoplasm of colon; K52.9 Noninfective gastroenteritis and colitis, unspecified

== ENCOUNTER 2021-11-25 07:54 | Day surgery (SDC) | payer MEDICARE ==
[~2021-11-25] VITALS: Ht 172.7 cm; Wt 97.0 kg
[2021-11-25] MEDS ORDERED: LACTATED RINGERS 1,000 ML IV STA (08:03)
[2021-11-25 08:10] VITALS: BP 164/88
[2021-11-25] MEDS ORDERED: HURRICAINE EXT TUBE (BENZOCAINE) XX PRN (08:15)
[2021-11-25] MEDS ORDERED: MIDAZOLAM 2 MG/2 ML (VERSED) VIAL ONE (08:54)
[2021-11-25] MEDS ORDERED: PROPOFOL INJECTION 50 ML IV ONE ×2 (08:54→09:29)
--- NOTE | 2021-11-25 09:51 | Discharge Inst-Simple/Standard ---
Discharge Inst-Standard Patient Instructions/Follow Up Plan of Care/Instructions/FU: 2 weeks anmol Activity as Tolerated: Yes Discharge Diet: Regular Diet (high fiber) TY SMITH DO Nov 25, 2021 09:51
[2021-11-25 09:53] VITALS: BP 112/72
[2021-11-25 09:58] VITALS: BP 115/70
[2021-11-25 10:00] VITALS: BP 117/62
[2021-11-25 10:30] VITALS: BP 154/90
[2021-11-25] MEDS ORDERED: LACTATED RINGERS 1,000 ML IV ONE (10:39)
--- NOTE | 2021-11-25 10:39 | Anesthesia-General Post-Op ---
MAC Patient Condition Mental Status/LOC: Same as Preop Cardiovascular: Satisfactory Nausea/Vomiting: Absent Respiratory: Satisfactory Pain: Controlled Complications: Absent Post Op Complications Complications None Follow Up Care/Instructions Patient Instructions None needed. Anesthesiology Discharge Order Discharge Order Patient is doing well, no complaints, stable vital signs, no apparent adverse anesthesia problems. No complications reported per nursing. IRVIN MARLOW CRNA Nov 25, 2021 10:38
--- NOTE | 2021-11-25 12:06 | OPERATIVE REPORT ---
DATE OF SERVICE: 11/25/2021 PREOPERATIVE DIAGNOSES: Chronic diarrhea, occult positive stool. POSTOPERATIVE DIAGNOSES: Gastritis, diverticulosis, and hemorrhoids. PROCEDURES PERFORMED: EGD with biopsies, colonoscopy with random cold biopsies. SURGEON: Ty Loo DO. ANESTHESIA: Per FURNACE MASON. ESTIMATED BLOOD LOSS: None. COMPLICATIONS: None. INDICATIONS FOR PROCEDURE: The patient is a 61-year-old female with chronic diarrhea and occult positive stools. She was discussed risks and benefits to have EGD and colonoscopy performed. She understands and wishes to proceed. Consent was signed in the chart. DESCRIPTION OF PROCEDURE: The patient was taken to the endoscopy suite and placed in the left lateral recumbent position. Timeout was performed. Scope was inserted in the mouth, down the esophagus, stomach and into the duodenum without difficulty. There were no polyps, masses or ulcerations within the duodenum. Scope was slowly retracted back into the stomach with more gastritis appearance. Biopsy of the antrum was obtained. Scope was retroflexed noting no other pathology. Scope was returned to its normal position, slowly withdrawn to distal esophagus. Biopsy of the GE junction was obtained. Scope was slowly retracted back until completely removed. No polyps, masses or ulcerations. Digital rectal exam was performed noting hemorrhoids. No palpable polyps, masses or ulcerations. Scope was inserted in the rectum and advanced all the way to the cecum with repositioning. Prep was adequate with irrigation and suction. Scope was slowly retracted back. No polyps, masses or ulcerations within the cecum, ascending, transverse, descending, and sigmoid colon. Random cold biopsies were obtained throughout the colon, in the sigmoid, noting significant diverticulosis. Once in the rectum, scope was inserted and retracted multiple times, noting no other pathology. Scope was then slowly retracted until completely removed. The patient tolerated the procedure well without any complications and taken to the recovery room in stable condition. RECOMMENDATIONS: Continue on current medications. Await biopsy results. We will need repeat colonoscopy in 10 years unless family history of colon cancer, which will then be 5 years or personal history of polyps, which would then be 5 years. Job ID: [id number] DocumentID: [id number] Dictated Date: 11/25/2021 09:54:26 Rn Cardiac Rehab Date: 11/25/2021 12:05:50 Dictated By: TY LOO DO [facility]
== END 2021-11-25 10:49 | disposition home or self-care (01) ==
LOC: ENDO 07:54
PROVIDERS: ATTEND Surgery
DX: K29.70 Gastritis, unspecified, without bleeding (principal); K57.30 Diverticulosis of large intestine without perforation or abscess without bleeding; K64.9 Unspecified hemorrhoids; K21.00 Gastro-esophageal reflux disease with esophagitis, without bleeding; K31.9 Disease of stomach and duodenum, unspecified; K52.9 Noninfective gastroenteritis and colitis, unspecified; Z87.891 Personal history of nicotine dependence; Z95.5 Presence of coronary angioplasty implant and graft; Z89.412 Acquired absence of left great toe; E66.9 Obesity, unspecified; Z68.32 Body mass index [BMI] 32.0-32.9, adult; Z86.16 Personal history of COVID-19; Z79.02 Long term (current) use of antithrombotics/antiplatelets